=== PATIENT | male | born 1955 | race Caucasian/White ===

== ENCOUNTER → 2016-11-16 | Outpatient (CLI) | payer OTHER ==
[2016-11-16 14:06] LABS: Partial Thromboplastin Time 23.4 sec (22.0-30.0); Prothrombin Time 10.3 sec (9.0-12.0)
[2016-11-16 14:24] LABS: ALT 21 U/L (21-72); AST 20 U/L (17-59); Alkaline Phosphatase 72 U/L (38-126); Anion Gap 10 mmol/L; Blood Urea Nitrogen 10 mg/dL (9-20); Calcium 9.7 mg/dL (8.4-10.2); Carbon Dioxide 30 mmol/L (22-30); Chloride 101 mmol/L (98-107); Glucose 208 mg/dL (74-99); Non-African American GFR(MDRD) >60 (>60 ml/min/1.73 sqM); Potassium 4.6 mmol/L (3.5-5.1); Sodium 141 mmol/L (137-145); Total Bilirubin 0.6 mg/dL (0.2-1.3); Total Protein 7.7 g/dL (6.3-8.2)
[2016-11-16 14:43] LABS: Appearance,Urine Clear (Clear); Basophils % (A) 0 %; Bilirubin,Urine Negative (Negative); CHCM 33.7; Eosinophils # (A) 0.4 k/uL (0-0.7); Eosinophils % (A) 5 %; Glucose,Urine (UA) 4+ (Negative); HCT 44.4 % (39.0-53.0); HDW 2.51; HGB 14.9 gm/dL (13.0-17.5); Ketones,Urine Negative (Negative); Leukocyte Esterase,Urine Negative (Negative); Luc # (Auto) 0.13; Luc % (Auto) 2; Lymphocytes # (A) 2.4 k/uL (1.0-4.8); Lymphocytes % (A) 34 %; MCH 33.1 pg (25.0-35.0); MCHC 33.6 g/dL (31.0-37.0); MCV 98.4 fL (80.0-100.0); Mean Platelet Volume 7.8; Monocytes # (A) 0.4 k/uL (0-1.0); Monocytes % (A) 6 %; Neutrophils # (A) 3.8 k/uL (1.3-7.7); Neutrophils % (A) 53 %; Nitrite,Urine Negative (Negative); PH, Urine 7.5 (5.0-8.0); Protein,Urine Negative (Negative); RBC 4.51 m/uL (4.30-5.90); RDW 14.9 % (11.5-15.5); Specific Gravity,Urine 1.022 (1.001-1.035); UA Billing (MACRO vs. MICRO) CHEM; Urobilinogen,Urine <2.0 mg/dL (<2.0); WBC 7.2 k/uL (3.8-10.6); WBC (Perox) 7.69
== END ==
LOC: LABPAT 13:30
PROVIDERS: ATTEND Orthopaedic Surgery
DX: Z01.810 Encounter for preprocedural cardiovascular examination (principal); Z01.812 Encounter for preprocedural laboratory examination
CPT/HCPCS: 80053; 81003; 85025; 85610; 85730; 87070

== ENCOUNTER 2016-11-30 13:56 | Inpatient (IN) | payer OTHER ==
[2016-11-26 12:01] VITALS: BMI 26.5
[~2016-11-30 13:56] MED LIST: LIDOCAINE 1% 20 ML VIAL (10MG/ML) FOR IV START INTRADERMA PRN; ROPIVACAINE 246.25 MG, EPINEPHrine 0.5 MG, KETOROLAC 30 MG, cloNIDine HCL/PF 80 MCG, WA... MISCELLANE ONE; SCOPOLAMINE 1.5MG/72HR PATCH TRANSDERM ONE; TRANEXAMIC ACID 1,000 MG in SODIUM CHLORIDE 0.9% 100 ML IVPB ONE; ceFAZolin 2 GM in SODIUM CHLORIDE 0.9% 100 ML IVPB ONE
[2016-11-30] MEDS: ACETAMINOPHEN TAB 500 MG TAB PO ONE ×2 (14:00→14:39)
[2016-11-30] MEDS: MELOXICAM 7.5 MG TAB PO ONE ×2 (14:01→14:39)
[2016-11-30] MEDS: DEXAMETHASONE SOD PHOSPHATE 10 MG/ML 1 ML VIAL IV ONE ×2 (14:01→14:40)
[2016-11-30] MEDS: ONDANSETRON 4 MG/2 ML VIAL IVP ONE ×2 (14:02→14:40)
[2016-11-30] MEDS: LACTATED RINGERS 1,000 ML IV SCH (14:02)
[2016-11-30 14:34] LABS: Glucose,Whole Blood 149 mg/dL (75-99)
[2016-11-30] MEDS ORDERED: LACTATED RINGERS 1,000 ML IV ONE ×2 (14:43→18:06)
[2016-11-30] MEDS ORDERED: MIDAZOLAM 2 MG/2 ML VIAL IV ONE (15:21)
[2016-11-30] MEDS ORDERED: HEPARIN SODIUM,PORCINE 10,000 UNIT/ML 1 ML VIAL ONE (16:51)
[2016-11-30] MEDS ORDERED: MIDAZOLAM 2 MG/2 ML VIAL ONE (16:51)
[2016-11-30] MEDS ORDERED: SODIUM CHLORIDE 0.9% 100 ML BAG ONE (16:51)
[2016-11-30] MEDS ORDERED: GLYCOPYRROLATE 0.2 MG/ML 2 ML VIAL ONE (16:51)
[2016-11-30] MEDS ORDERED: SODIUM CHLORIDE 0.9% IRRIG 1,000 ML BTL IRRIGATION ONE (16:51)
[2016-11-30] MEDS ORDERED: SUCCINYLCHOLINE CHLORIDE VIAL 200 MG/10 ML VIAL IV ONE (16:51)
[2016-11-30] MEDS ORDERED: HYDROmorphone (PF) 1 MG/ML ONE (16:51)
[2016-11-30] MEDS ORDERED: PHENYLEPHRINE-0.9% NACL SYG 1 MG/10 ML SYRINGE ONE (16:51)
[2016-11-30] MEDS ORDERED: ROCURONIUM BROMIDE 10 MG/ML 10 ML VIAL IV ONE (16:51)
[2016-11-30] MEDS ORDERED: SODIUM CHLORIDE 0.9% 100 ML with ceFAZolin 2,000 MG IV ONE ×2 (16:51)
[2016-11-30] MEDS ORDERED: TRANEXAMIC ACID 1,000 MG/10 ML VIAL ONE (16:51)
[2016-11-30] MEDS ORDERED: fentaNYL (PF) 50 MCG/ML 2 ML AMP ONE (16:51)
[2016-11-30] MEDS ORDERED: PROPOFOL 10 MG/ML 20 ML VIAL IV ONE (16:51)
[2016-11-30] MEDS ORDERED: NEOSTIGMINE 1 MG/ML 10 ML VIAL ONE (16:51)
[2016-11-30] MEDS ORDERED: ceFAZolin 3,000 MG in SODIUM CHLORIDE 0.9% IRRIGATIO 3,000 ML IRRIGATION ONE (17:30)
--- NOTE | 2016-11-30 18:38 | P.OP ---
Date of Procedure: 11/30/16 Preoperative Diagnosis: Severe osteoarthritis left hip Postoperative Diagnosis: Severe osteoarthritis left hip Procedure(s) Performed: Left total hip arthroplasty with a direct anterior approach Implants: Jameson and nephew Polarstem size 6 standard [employer]on [employer]hew R3, 3 hole acetabular shell, 56 mm [employer]hew reflection 6.5 mm cancellus screw, 25 mm 2 [employer]hew R3, XLPE 20 acetabular liner [employer]on [employer] Nephew Oxinium femoral head 36 m, +4 All components were press-fit. The articulation is ceramic on polyethylene. Anesthesia: spinal Surgeon: Suleman Castillo Referral Agent #1: Ana Menchaca Referral Agent #2: Cecy Brewer Estimated Blood Loss (ml): 450 (197 cc returned with cell saver) Pathology: other (Femoral head) Condition: stable Disposition: PACU Indications for Procedure: After failure of conservative treatment we discussed the surgical and nonsurgical treatment options at length. Patient wishes to proceed with a total hip arthroplasty with a direct anterior approach. Complications specific to this procedure were discussed at length, including but not limited to infection, leg length discrepancy, dislocation, and nerve injury. Patient is aware of all these complications and informed consent was obtained Operative Findings: The operative findings are consistent with severe osteoarthritis of the left hip Description of Procedure: Patient was seen and evaluated in the preoperative area, consent was reviewed, and the surgical site was marked with a skin marker. Patient was then brought to the operating room and given prophylactic antibiotics intravenously. 1 g of Tranexamic acid was also given. A spinal anesthetic was administered by the anesthesia department. The patient was then placed on the [place] table with the bony prominences well-padded. The hip area was then prepped and draped in usual sterile fashion. A universal timeout was then performed, which confirmed the patient's name, surgical site, ALLERGIES, and procedure being performed. Next the incision site was located at 1 cm distal and 1 cm lateral to the anterior superior iliac spine. The skin and subcutaneous tissues were sharply incised. Incision was carefully dissected down to the fascia overlying the tensor fascia marcelina muscle. This fascia was then incised in line with the incision. Next, using blunt finger dissection, the tensor fascia marcelina muscle was dissected off its investing fascia. The muscle was then carefully retracted laterally with a cobra retractor over the lateral neck of the femur. Next, the circumflex vessels were identified and cauterized using the AquaMantis device. The anterior hip capsule was then exposed. The capsule was then opened and an inverted T fashion. Retention sutures were placed in the inferior arms of the capsule. Cobra retractors were then placed intracapsularly. The proximal femur was then visualized. The femoral neck was then osteotomized appropriate level above the lesser trochanter. Small amount of traction was placed with the [place] table. A small wedge of bone was then removed from the remaining femoral head. Next, using a corkscrew femoral head was easily removed from the acetabulum. On gross visual inspection, the femoral head had complete loss of articular cartilage in multiple periarticular osteophytes. Attention was then turned to the acetabulum. the acetabulum was exposed and any remaining labrum was excised. Sequential reaming of the acetabulum was performed using fluoroscopic guidance. When the appropriate size was reached, a trial was then placed. The position and fit of the trial was checked with fluoroscopy. The trial was then removed. Then, using fluoroscopic guidance, the final implant was impacted at 20 of anteversion and 40 of abduction, and fully seated in the acetabulum. 2 screws were then placed in the acetabulum. Again fluoroscopy was used to check position of the screws. Next, the liner was then impacted, with a 20 elevated liner located in the anterior superior quadrant. Component locking was confirmed. Attention was then directed to the femur. With the aid of the [place] table, the femur was externally rotated to approximately 130, extended, and abducted under the opposite leg. A side hook was then placed under the proximal femur, and the side hook elevator was used to elevate the proximal femur. Retractors were then placed. A capsular release was performed, as well as a release of the conjoined tendon, which afforded excellent visualization of the proximal femur. Next, a box osteotome was used to lateralize the proximal femur. A coal handling supervisor was then used to locate the femoral canal. Sequential broaching was then performed with appropriate size which afforded excellent fixation in the proximal femur. A trial was then placed with appropriate head and neck, and the hip was gently reduced with the aid of the [place] table. Fluoroscopy was then used to check position of the components, as well as to ensure equal leg lengths. The hip was then gently dislocated and the trials were then removed. Final implants were then impacted and the hip was again reduced. Final fluoroscopic x-rays confirmed that the components were in anatomic position, as well as equal leg lengths. The hip was also taken through range of motion, and found to be stable. The hip was then copiously irrigated with antibiotic solution with pulsatile lavage. The hip was then irrigated with Irrisept solution. The soft tissues were then injected with a ropivacaine solution, which consisted of 246.25 mg of ropivacaine, 0.5 mg of epinephrine, 30 mg of Toradol, 80 g of clonidine, and 48.45 mL of sterile water, for a total of 100 mL of fluid injected. A second dose of 1 g of Tranexamic acid was also given. the fascia was then closed with 2-0 strata fix suture. The subcutaneous tissue was closed with 3-0 Vicryl. The subcuticular tissue was closed with 3-0 strata fix suture. The skin was then closed with Dermabond tape. The patient was then transferred to the recovery room in stable condition. The economic research assistant NICOLETTE Vallejo was required due to the complexity of surgery , and the need for skilled assistant professor surgical technology for positioning, draping, exposure , retraction, and closure of the wound.
[2016-11-30] MEDS ORDERED: ONDANSETRON 4 MG/2 ML VIAL IVP PRN (19:03)
[2016-11-30] MEDS ORDERED: HYDROcodone/APAP 7.5-325MG 1 EACH TAB PO PRN (19:03)
[2016-11-30] MEDS ORDERED: HYDROmorphone 1 MG/ML 1 ML SYRINGE IVP PRN ×3 (19:03)
[2016-11-30] MEDS ORDERED: DIAZEPAM 5 MG TAB PO PRN ×2 (19:03)
[2016-11-30] MEDS ORDERED: NALOXONE 0.4 MG/ML 1 ML VIAL IV PRN (19:03)
[2016-11-30] MEDS ORDERED: MAGNESIUM HYDROXIDE 2,400 MG/10 ML CUP PO PRN (19:03)
[2016-11-30] MEDS: HYDROmorphone 1 MG/ML 1 ML SYRINGE IVP PRN ×5 (19:10→19:41)
[2016-11-30 19:29] LABS: Glucose,Whole Blood 253 mg/dL (75-99)
[2016-11-30] MEDS ORDERED: HYDROmorphone PCA 5 MG/25 ML SYRINGE IV PRN (19:30)
--- NOTE | 2016-11-30 19:32 | XR ---
EXAMINATION TYPE: XR Hip Limited LT DATE OF EXAM: 11/30/2016 7:26 PM COMPARISON: 07/05/2016 HISTORY: Postop TECHNIQUE: Single view FINDINGS: There is a left hip prosthesis. Components appear in anatomic position. IMPRESSION: No complicating process seen.
[2016-11-30 19:35] VITALS: RESP 16
[2016-11-30] MEDS ORDERED: INSULIN LISPRO (humaLOG) 300 UNIT/3 ML VIAL SQ ONE (19:43)
[2016-11-30] MEDS: SODIUM CHLORIDE 0.9% 1,000 ML IV SCH (21:22)
[2016-11-30] MEDS: ASPIRIN 325 MG TAB PO SCH (21:26)
[2016-11-30] MEDS: SENNOSIDES-DOCUSATE SODIUM 1 EACH TAB PO SCH (21:26)
[2016-11-30 21:38] LABS: Glucose,Whole Blood 292 mg/dL (75-99)
[2016-12-01] MEDS: ceFAZolin 2 GM in SODIUM CHLORIDE 0.9% 100 ML IVPB SCH ×2 (00:35→07:52)
[2016-12-01] MEDS: LACTATED RINGERS 1,000 ML IV SCH (01:23)
[2016-12-01] MEDS: BUDESONIDE 0.5 MG/2 ML NEBU INHALATION SCH ×2 (07:24→19:19)
[2016-12-01] MEDS: ALBUTEROL NEBULIZED 2.5 MG/3 ML INHALATION PRN (07:24)
[2016-12-01 07:35] LABS: Glucose,Whole Blood 266 mg/dL (75-99)
[2016-12-01] MEDS: INSULIN LISPRO (humaLOG) 300 UNIT/3 ML VIAL SQ SCH ×3 (07:51→17:35)
[2016-12-01] MEDS: MELOXICAM 7.5 MG TAB PO SCH (07:52)
[2016-12-01] MEDS: ASPIRIN 325 MG TAB PO SCH ×2 (07:52→22:35)
[2016-12-01] MEDS: metFORMIN 500 MG TAB PO SCH ×2 (07:52→17:36)
[2016-12-01] MEDS: hydrOXYzine PAMOATE 25 MG CAP PO PRN ×2 (07:58→16:19)
[2016-12-01 08:20] LABS: Basophils % (A) 0 %; CH 33.9; CHCM 34.6; Eosinophils % (A) 0 %; HDW 2.67; HGB 12.9 gm/dL (13.0-17.5); Luc # (Auto) 0.08; Luc % (Auto) 0; Lymphocytes # (A) 1.7 k/uL (1.0-4.8); Lymphocytes % (A) 9 %; MCH 32.5 pg (25.0-35.0); MCHC 33.1 g/dL (31.0-37.0); MCV 98.3 fL (80.0-100.0); Mean Platelet Volume 7.8; Monocytes % (A) 5 %; Neutrophils % (A) 86 %; RBC 3.97 m/uL (4.30-5.90); RDW 14.2 % (11.5-15.5); WBC 19.8 k/uL (3.8-10.6); WBC (Perox) 20.98
[2016-12-01 09:50] LABS: Glucose,Whole Blood 244 mg/dL (75-99)
[2016-12-01] MEDS: SODIUM CHLORIDE 0.9% 1,000 ML IV SCH (09:57)
--- NOTE | 2016-12-01 10:27 | FL ---
Fluoroscopy HISTORY: Hardware placement 48 seconds fluoroscopy time supplied to the referring clinician. 2 intraoperative C-arm images docum ent the procedure. See dictated report from orthopedic surgery.
--- NOTE | 2016-12-01 10:29 | XR ---
Limited left hip HISTORY: Hip replacement 3 Intraoperative C-arm images document the procedure
--- NOTE | 2016-12-01 11:39 | P.CONS ---
History of Present Illness - Reason for Consult Consult date: 12/01/16 Medical management - Chief Complaint Left posterior arthritis - History of Present Illness This is a 61-year-old gentleman with past medical history noted below significant for severe left hip osteoarthritis that failed outpatient management. Patient was admitted to the hospital and underwent an elective total left hip arthroplasty. Patient tolerated the procedure well. He is up in the chair today. Pain is well controlled. He does not have any specific concerns or complaints. I was asked to see him for medical management. Review of Systems Review of system: 14 points review of systems were obtained and were negative except to what were mentioned in the HPI. Past Medical History Past Medical History: Asthma, Diabetes Mellitus, Hyperlipidemia, Hypertension Additional Past Medical History / Comment(s): [place], chronic hip pain, PT STATES SURGERY RESCHEDULED DUE TO DR OUT OF TOWN AND CLEARANCE WAS NOT COMPLETED. History of Any Multi-Drug Resistant Organisms: None Reported Past Surgical History: No Surgical Hx Reported Additional Past Anesthesia/Blood Transfusion Reaction / Comm: NEVER RECEIVED ANESTHESIA. Past Psychological History: No Psychological Hx Reported Smoking Status: Former smoker Past Alcohol Use History: None Reported Additional Past Alcohol Use History / Comment(s): QUIT SMOKING 2005. SMOKED 1 PPD FOR A COUPLE YEARS. Past Drug Use History: Marijuana Additional Drug Use History / Comment(s): DIGESTS MARIJUANA IN A TEA FOR PAIN. - Past Family History Mother Family Medical History: No Reported History Medications and Allergies Home Medications Medication Instructions Recorded Confirmed Type Atorvastatin Calcium [Lipitor] 20 mg PO HS 02/03/14 11/26/16 History Beclomethasone Dipropionate [Qvar 1 puff INHALATION RT-BID 02/03/14 11/30/16 History 40 mcg/puff] Insulin Aspart [NovoLOG] 15 unit SQ TID-W/MEALS 02/03/14 11/26/16 History Insulin Detemir [Levemir] 30 unit SQ HS 02/03/14 11/30/16 History metFORMIN HCL [Glucophage] 500 mg PO BID 02/03/14 11/26/16 History Lisinopril [Prinivil] 20 mg PO DAILY 08/05/14 11/26/16 History Montelukast [Singulair] 10 mg PO HS 08/05/14 11/26/16 History Albuterol Sulfate [Proair Hfa] 2 puff INHALATION DIRECTED PRN 08/18/16 History Omalizumab [Xolair] 150 mg SQ QMONTH 08/18/16 11/30/16 History Allergies Allergy/AdvReac Type Severity Reaction Status Date / Time No Known Allergies Allergy Verified 11/30/16 14:18 Physical Exam Vitals: Vital Signs Temp Pulse Pulse Pulse Pulse Resp BP 12/01/16 08:02 97.9 F 101 H 16 12/01/16 08:00 74 101 H 16 12/01/16 07:59 101 H 12/01/16 07:25 106 H 12/01/16 02:36 97.1 F L 107 H 16 11/30/16 21:09 11/30/16 19:48 74 16 11/30/16 19:33 90 16 11/30/16 19:18 96 18 11/30/16 19:03 97.4 F L 79 18 11/30/16 14:30 97.6 F 79 16 144/96 BP Pulse Ox 12/01/16 08:02 150/73 96 12/01/16 08:00 12/01/16 07:59 12/01/16 07:25 12/01/16 02:36 196/86 96 11/30/16 21:09 98 11/30/16 19:48 163/79 96 11/30/16 19:33 152/78 97 11/30/16 19:18 167/79 99 11/30/16 19:03 155/93 93 L 11/30/16 14:30 98 Intake and Output 11/30/16 12/01/16 12/01/16 22:59 06:59 14:59 Intake Total 1876 1690 200 Output Total 450 900 600 Balance 1426 790 -400 Intake: IV 1876 600 Sodium Chloride 0.9% 1, 225 600 000 ml @ 75 mls/hr IV . [id number] [facility] Rx#:[id number] Oral 1090 200 Output: Urine 900 600 Estimated Blood Loss 450 Other: Voiding Method Urinal # Voids 2 Weight 83.915 kg General: The patient is awake and alert, in no distress, and does not appear acutely ill. Eye: extra-ocular movements are intact; there is normal conjunctiva bilaterally. . Neck: The neck is supple, there is no tenderness or JVD. Cardiovascular: Normal S1-S2, no S3-S4, no murmurs. Respiratory: Lungs clear to auscultation bilaterally with no wheezes rhonchi or rales. Gastrointestinal: Abdomen is soft, nontender, nondistended, with no organomegaly. . Musculoskeletal: Normal ROM, no tenderness, There is no pedal edema. Neurological: There are no obvious motor or sensory deficits. Speech is normal. Skin: Skin is warm and dry and no rashes or lesions are noted. Results CBC & Chem 7: 12/01/16 07:42 11/30/16 14:35 Labs: Abnormal Lab Results - Last 24 Hours (Table) 11/30/16 11/30/16 11/30/16 Range/Units 14:27 14:35 19:20 WBC (3.8-10.6) k/uL RBC (4.30-5.90) m/uL Hgb (13.0-17.5) gm/dL Neutrophils # (1.3-7.7) k/uL Glucose 152 H (74-99) mg/dL POC Glucose (mg/dL) 149 H 253 H (75-99) mg/dL 11/30/16 12/01/16 12/01/16 Range/Units 21:36 07:22 07:42 WBC 19.8 H (3.8-10.6) k/uL RBC 3.97 L (4.30-5.90) m/uL Hgb 12.9 L (13.0-17.5) gm/dL Neutrophils # 17.0 H (1.3-7.7) k/uL Glucose (74-99) mg/dL POC Glucose (mg/dL) 292 H 266 H (75-99) mg/dL 12/01/16 Range/Units 09:35 WBC (3.8-10.6) k/uL RBC (4.30-5.90) m/uL Hgb (13.0-17.5) gm/dL Neutrophils # (1.3-7.7) k/uL Glucose (74-99) mg/dL POC Glucose (mg/dL) 244 H (75-99) mg/dL Assessment and Plan Plan: 1. Severe osteoarthritis of the left hip postoperative day #1 status post total left hip arthroplasty 2. DVT prophylaxis with full dose aspirin twice daily per orthopedic protocol 3. Physical debility: Continue PT/OT as tolerated 4. Type 2 diabetes mellitus: Continue home regimen Today, I reviewed her medication list and lab work results. Continue current regimen. Thank you very much for the consultation. I will continue to follow up on the patient closely.
[2016-12-01 11:57] LABS: Glucose,Whole Blood 198 mg/dL (75-99)
--- NOTE | 2016-12-01 15:39 | P.PN ---
Subjective Principal diagnosis: S/p left total hip arthroplasty This is a 61yo male who is s/p total hip arthroplasty. This is post op day #1. Patient was examined at bedside with Dr. Suleman Castillo. Patient has not been up with PT yet. Patient has no new complaints. Objective - Vital Signs Vital signs: Vital Signs Temp 98.0 F 12/01/16 14:49 Pulse 97 12/01/16 14:49 Resp 16 12/01/16 14:49 BP 109/73 12/01/16 14:49 Pulse Ox 99 12/01/16 14:49 Intake & Output 11/30/16 12/01/16 12/01/16 18:59 06:59 18:59 Intake Total 1601 2165 500 Output Total 450 900 600 Balance 1151 1265 -100 Weight 83.915 kg Intake: IV 1601 1075 300 Sodium Chloride 0.9% 1, 825 300 000 ml @ 75 mls/hr IV . [id number] [facility] Rx#:[id number] Oral 1090 200 Output: Urine 900 600 Estimated Blood Loss 450 Other: Voiding Method Urinal # Voids 2 - Exam Vital signs are stable. Patient has full foot and ankle motion. Neurovascular status is intact. Calf is soft and nontender. Dressing is clean dry and intact. - Labs CBC & Chem 7: 12/01/16 07:42 11/30/16 14:35 Labs: Abnormal Lab Results - Last 24 Hours (Table) 11/30/16 11/30/16 12/01/16 Range/Units 19:20 21:36 07:22 WBC (3.8-10.6) k/uL RBC (4.30-5.90) m/uL Hgb (13.0-17.5) gm/dL Neutrophils # (1.3-7.7) k/uL POC Glucose (mg/dL) 253 H 292 H 266 H (75-99) mg/dL 12/01/16 12/01/16 12/01/16 Range/Units 07:42 09:35 11:51 WBC 19.8 H (3.8-10.6) k/uL RBC 3.97 L (4.30-5.90) m/uL Hgb 12.9 L (13.0-17.5) gm/dL Neutrophils # 17.0 H (1.3-7.7) k/uL POC Glucose (mg/dL) 244 H 198 H (75-99) mg/dL Assessment and Plan (1) S/P total hip arthroplasty Status: Acute (2) Osteoarthritis of left hip Status: Acute Plan: Weightbearing as tolerated with walker. Leukocytosis noted, could be reacting. Followed. Possible discharge to rehab tomorrow if medically cleared.
[2016-12-01] MEDS: HYDROcodone/APAP 7.5-325MG 1 EACH TAB PO PRN (16:19)
[2016-12-01 16:50] LABS: Glucose,Whole Blood 128 mg/dL (75-99)
[2016-12-01 20:06] LABS: Glucose,Whole Blood 200 mg/dL (75-99)
[2016-12-01] MEDS ORDERED: INSULIN DETEMIR 100 UNIT/ML 10 ML VIAL SQ SCH (21:00)
[2016-12-01] MEDS ORDERED: ATORVASTATIN 20 MG TAB PO SCH (21:00)
[2016-12-01] MEDS: SENNOSIDES-DOCUSATE SODIUM 1 EACH TAB PO SCH (22:35)
[2016-12-02] MEDS: HYDROcodone/APAP 7.5-325MG 1 EACH TAB PO PRN ×2 (01:13→08:34)
[2016-12-02] MEDS: SODIUM CHLORIDE 0.9% 1,000 ML IV SCH ×2 (03:49→11:10)
[2016-12-02 07:06] LABS: Glucose,Whole Blood 125 mg/dL (75-99)
[2016-12-02] MEDS: LACTATED RINGERS 1,000 ML IV SCH (07:49)
[2016-12-02] MEDS: INSULIN LISPRO (humaLOG) 300 UNIT/3 ML VIAL SQ SCH ×2 (07:52→12:08)
[2016-12-02 08:00] VITALS: BP 135/79; TEMP 98.7
[2016-12-02] MEDS: ALBUTEROL NEBULIZED 2.5 MG/3 ML INHALATION PRN (08:16)
[2016-12-02] MEDS: BUDESONIDE 0.5 MG/2 ML NEBU INHALATION SCH (08:16)
[2016-12-02] MEDS: MELOXICAM 7.5 MG TAB PO SCH (08:34)
[2016-12-02] MEDS: metFORMIN 500 MG TAB PO SCH (08:34)
[2016-12-02] MEDS: ASPIRIN 325 MG TAB PO SCH (08:34)
--- NOTE | 2016-12-02 08:34 | P.DS ---
Providers Date of admission: 11/30/16 13:56 Expected date of discharge: 12/02/16 Attending physician: Suleman Castillo Consults: 11/30/16 19:03 Consult Physician Stat Consulting Provider: Felipe Phillips Consult Reason/Comments: medical management Do you want consulting provider notified?: Yes 12/01/16 06:03 Consult Physician Routine Consulting Provider: Catherine Barry Consult Reason/Comments: medical management Do you want consulting provider notified?: Already Contacted Primary care physician: Stated None - Discharge Diagnosis(es) (1) Primary osteoarthritis of left hip Current Visit: Yes Status: Acute (2) Status post left hip replacement Current Visit: Yes Status: Acute Hospital Course: This is a pleasant 61-year-old gentleman who was last seen in our office with complaints of left hip pain. Patient has known history of degenerative arthritis of the left hip. After discussion consideration the patient elected to proceed with a left total hip arthroplasty. Patient was seen preoperatively medically cleared for surgery by his primary care physician. Patient was [facility] to [facility] 11/30/2016. Patient underwent left total hip arthroplasty with anterior approach. The procedure was performed without competitions or sequelae. The patient did have leukocytosis postoperatively which is likely reactive. Repeat CBC is pending. The patient was seen and evaluated at bedside this morning with Dr. Suleman Castillo. Patient denies any fevers or chills. He states that he's been up ambulating with a walker. He wishes to be discharged home today. He has no new complaints this time. Dressing is clean dry and intact. Incision appears fine with no erythema or active drainage. Thigh is soft. Calf is soft. He has good foot and ankle motion without difficulty. Sensation and circulatory status is intact. The patient does not wish to consider rehab. He would like to be discharged to home today with home care. If he is doing well physical therapy he may be cleared for discharge possibly later this afternoon. Patient Condition at Discharge: Good Plan - Discharge Summary New Discharge Prescriptions: Aspirin 325 mg PO BID #60 tab HYDROcodone/APAP 7.5-325MG [[place] 7.5] 1 - 2 each PO Q6HR PRN #90 tab PRN Reason: Pain Sennosides-Docusate Sodium [Senokot-S] 2 tab PO DAILY #60 tablet Discharge Medication List Atorvastatin Calcium [Lipitor] 20 mg PO HS 02/03/14 [History] Beclomethasone Dipropionate [Qvar 40 mcg/puff] 1 puff INHALATION RT-BID [History] Insulin Aspart [NovoLOG] 15 unit SQ TID-W/MEALS 02/03/14 [History] Insulin Detemir [Levemir] 30 unit SQ HS 02/03/14 [History] metFORMIN HCL [Glucophage] 500 mg PO BID 02/03/14 [History] Lisinopril [Prinivil] 20 mg PO DAILY 08/05/14 [History] Montelukast [Singulair] 10 mg PO HS 08/05/14 [History] Albuterol Sulfate [Proair Hfa] 2 puff INHALATION DIRECTED PRN 08/18/16 [ History] Omalizumab [Xolair] 150 mg SQ QMONTH 08/18/16 [History] Aspirin 325 mg PO BID #60 tab 12/02/16 [Rx] HYDROcodone/APAP 7.5-325MG [Sallis 7.5] 1 - 2 each PO Q6HR PRN #90 tab 12/02/16 [ Rx] Sennosides-Docusate Sodium [Senokot-S] 2 tab PO DAILY #60 tablet 12/02/16 [Rx] Follow up Appointment(s)/Referral(s): Suleman Castillo DO [Doctor of Osteopathic Medicine] - 2 Weeks Activity/Diet/Wound Care/Special Instructions: Weightbearing as tolerated with walker Daily dressing changes Keep incision clean and dry Call [facility] with questions or concerns [phone] Discharge Disposition: HOME WITH HOME HEALTH SERVICES
[2016-12-02] MEDS ORDERED: LISINOPRIL 20 MG TAB PO SCH (09:00)
[2016-12-02 09:22] VITALS: PULSE 98
[2016-12-02 09:47] LABS: Basophils % (A) 0 %; CH 33.6; CHCM 33.3; Eosinophils % (A) 0 %; HCT 35.1 % (39.0-53.0); HDW 2.48; HGB 11.5 gm/dL (13.0-17.5); Luc # (Auto) 0.17; Luc % (Auto) 1; Lymphocytes # (A) 2.7 k/uL (1.0-4.8); Lymphocytes % (A) 19 %; MCH 33.1 pg (25.0-35.0); MCHC 32.7 g/dL (31.0-37.0); MCV 101.4 fL (80.0-100.0); Macrocytosis Slight; Mean Platelet Volume 7.9; Monocytes # (A) 0.8 k/uL (0-1.0); Monocytes % (A) 5 %; Neutrophils # (A) 10.5 k/uL (1.3-7.7); Neutrophils % (A) 74 %; RBC 3.47 m/uL (4.30-5.90); RDW 14.7 % (11.5-15.5); WBC 14.3 k/uL (3.8-10.6); WBC (Perox) 14.33
[2016-12-02 11:13] LABS: Glucose,Whole Blood 315 mg/dL (75-99)
[2016-12-02] MEDS ORDERED: MONTELUKAST 10 MG TAB PO SCH (21:00)
== END 2016-12-02 13:23 | disposition home or self-care (01) | DRG 470 ==
LOC: 2ORMAIN 13:56 → 3SUR 18:58
PROVIDERS: ADMIT Orthopaedic Surgery; ATTEND Orthopaedic Surgery
PROC: 0SRB04A Replacement of Left Hip Joint with Ceramic on Polyethylene Synthetic Substitute, Uncemented, Open Approach (ICD-10-PCS; principal; 2016-11-30 16:30)
DX: M16.12 Unilateral primary osteoarthritis, left hip (principal); I10 Essential (primary) hypertension; E11.9 Type 2 diabetes mellitus without complications; D72.829 Elevated white blood cell count, unspecified; E78.5 Hyperlipidemia, unspecified; J45.909 Unspecified asthma, uncomplicated; Z79.4 Long term (current) use of insulin; Z79.899 Other long term (current) drug therapy; Z87.891 Personal history of nicotine dependence; Z79.84 Long term (current) use of oral hypoglycemic drugs
CPT/HCPCS: 73501; 73502; 82947; 85025; 86850; 86891; 86900; 86901; 88305; 88311; 94640; 94760

== ENCOUNTER 2017-11-21 13:14 | Emergency (ER) | payer OTHER ==
[2017-11-21 13:31] VITALS: TEMP 97.6
[2017-11-21] MEDS ORDERED: SODIUM CHLORIDE 0.9% 1,000 ML IV STA (13:49)
--- NOTE | 2017-11-21 13:55 | ED ---
General Adult HPI - General Chief complaint: Nausea/Vomiting/Diarrhea Stated complaint: rash, vomiting Time Seen by Provider: 11/21/17 13:41 Source: patient, RN notes reviewed Mode of arrival: wheelchair Limitations: no limitations - History of Present Illness Initial comments: Patient 62-year-old male who presents emergency room today with a chief complaint of a rash and diarrhea. Patient states that he's had this rash over the last several months. States was told it was psoriasis. States his pain using a topical cream with very little relief. He states he has been following up with a medical office coordinator. He states he was told to have some lab work performed so he could be started on oral medication. Patient states that he's also had some diarrhea for the past 4 days. He does not that there has been some improvement. She is having more 2 bowel movements a day. No signs of blood. Does admit to some cramping in the abdomen but states it comes and goes. Currently pain free at this time. Patient states is unsure of the diarrhea was related to the rash was concerned bodies comfortably emergency room today. He denies any other complaints associated symptoms. Patient denies any recent fever , chills, shortness of breath, chest pain, back pain, nausea or vomiting, numbness or tingling, dysuria or hematuria, constipation, headaches or visual changes, or any other complaints. - Related Data Home Medications Medication Instructions Recorded Confirmed Atorvastatin Calcium [Lipitor] 20 mg PO HS 02/03/14 11/26/16 Beclomethasone Dipropionate [Qvar 1 puff INHALATION RT-BID 02/03/14 11/30/16 40 mcg/puff] Insulin Aspart [NovoLOG] 15 unit SQ TID-W/MEALS 02/03/14 11/26/16 Insulin Detemir [Levemir] 30 unit SQ HS 02/03/14 11/30/16 metFORMIN HCL [Glucophage] 500 mg PO BID 02/03/14 11/26/16 Lisinopril [Prinivil] 20 mg PO DAILY 08/05/14 11/26/16 Montelukast [Singulair] 10 mg PO HS 08/05/14 11/26/16 Albuterol Sulfate [Proair Hfa] 2 puff INHALATION DIRECTED PRN 08/18/16 Omalizumab [Xolair] 150 mg SQ QMONTH 08/18/16 11/30/16 Previous Rx's Medication Instructions Recorded Aspirin 325 mg PO BID #60 tab 12/02/16 HYDROcodone/APAP 7.5-325MG [[place] 1 - 2 each PO Q6HR PRN #90 tab 12/02/16 7.5] Sennosides-Docusate Sodium 2 tab PO DAILY #60 tablet 12/02/16 [Senokot-S] hydrOXYzine PAMOATE [Vistaril] 2 tab PO QID PRN #30 cap 11/21/17 Allergies Allergy/AdvReac Type Severity Reaction Status Date / Time No Known Allergies Allergy Verified 11/21/17 13:31 Review of Systems ROS Statement: Those systems with pertinent positive or pertinent negative responses have been documented in the HPI. ROS Other: All systems not noted in ROS Statement are negative. Past Medical History Past Medical History: Asthma, Diabetes Mellitus, Hyperlipidemia, Hypertension Additional Past Medical History / Comment(s): [place], chronic hip pain, History of Any Multi-Drug Resistant Organisms: None Reported Past Surgical History: No Surgical Hx Reported Additional Past Anesthesia/Blood Transfusion Reaction / Comment(s): NEVER RECEIVED ANESTHESIA. Past Psychological History: No Psychological Hx Reported Smoking Status: Former smoker Past Alcohol Use History: None Reported Past Drug Use History: Marijuana - Past Family History Mother Family Medical History: No Reported History General Exam - General Exam Comments Initial Comments: General: The patient is awake and alert, in no distress, and does not appear acutely ill. Eye: Pupils are equal, round and reactive to light, extra-ocular movements are intact. No nystagmus. There is normal conjunctiva bilaterally. No signs of icterus. Ears, nose, mouth and throat: There are moist mucous membranes and no oral lesions. Neck: The neck is supple, there is no tenderness or JVD. Cardiovascular: There is a regular rate and rhythm. No murmur, rub or gallop is appreciated. Respiratory: Lungs are clear to auscultation, respirations are non-labored, breath sounds are equal. No wheezes, stridor, rales, or rhonchi. Gastrointestinal: Soft, non-distended, non-tender abdomen without masses or organomegaly noted. There is no rebound or guarding present. No CVA tenderness. Bowel sounds are unremarkable. Musculoskeletal: Normal ROM, no tenderness. Strength 5/5. Sensation intact. Pulses equal bilaterally 2+. Neurological: A&O x 3. CN II-XII intact, There are no obvious motor or sensory deficits. Coordination appears grossly intact. Speech is normal. Skin: Skin is warm and dry and no rashes or lesions are noted. Psychiatric: Cooperative, appropriate mood & affect, normal judgment. Limitations: no limitations Course Vital Signs 11/21/17 13:28 Temperature 97.6 F Pulse Rate 102 H Respiratory 18 Rate Blood Pressure 124/78 O2 Sat by Pulse 99 Oximetry Medical Decision Making - Medical Decision Making Patient's labs been reviewed. Mildly elevated white count of 12,000. Patient was on steroids. Patient's blood sugar 225. States that he will take his medication at home. Patient's abdomen soft nontender. She is concerned because he was having diarrhea along with this rash. He is seeing a medical office coordinator. He states he had to have these labs obtained to follow back up with them. He states he does plan on following up this week. Patient's will be given medication of Vistaril for the itching as he states is currently not taking anything for it. Patient advised to follow-up return if any symptoms increase or worsen. - Lab Data Result diagrams: 11/21/17 13:55 11/21/17 13:55 Lab Results 11/21/17 11/21/17 Range/Units 13:55 13:55 WBC 12.3 H (3.8-10.6) k/uL RBC 5.03 (4.30-5.90) m/uL Hgb 15.9 (13.0-17.5) gm/dL Hct 47.9 (39.0-53.0) % MCV 95.3 (80.0-100.0) fL MCH 31.7 (25.0-35.0) pg MCHC 33.2 (31.0-37.0) g/dL RDW 13.6 (11.5-15.5) % Plt Count 335 (150-450) k/uL Neutrophils % 71 % Lymphocytes % 20 % Monocytes % 5 % Eosinophils % 3 % Basophils % 0 % Neutrophils # 8.7 H (1.3-7.7) k/uL Lymphocytes # 2.5 (1.0-4.8) k/uL Monocytes # 0.6 (0-1.0) k/uL Eosinophils # 0.4 (0-0.7) k/uL Basophils # 0.0 (0-0.2) k/uL Sodium 141 (137-145) mmol/L Potassium 4.8 (3.5-5.1) mmol/L Chloride 101 (98-107) mmol/L Carbon Dioxide 28 (22-30) mmol/L Anion Gap 12 mmol/L BUN 12 (9-20) mg/dL Creatinine 0.64 L (0.66-1.25) mg/dL Est GFR (CKD-EPI)AfAm >90 (>60 ml/min/1.73 sqM) Est GFR (CKD-EPI)NonAf >90 (>60 ml/min/1.73 sqM) Glucose 225 H (74-99) mg/dL Calcium 10.0 (8.4-10.2) mg/dL Total Bilirubin 0.5 (0.2-1.3) mg/dL AST 20 (17-59) U/L ALT 30 (21-72) U/L Alkaline Phosphatase 72 (38-126) U/L Total Protein 7.6 (6.3-8.2) g/dL Albumin 4.5 (3.5-5.0) g/dL Disposition Clinical Impression: Acute diarrhea, Rash Disposition: HOME SELF-CARE Condition: Good Instructions: Acute Diarrhea (ED) Additional Instructions: Please use medication as discussed. Please follow-up with family doctor in the next 2 days of symptoms have not improved. Please return to emergency room if the symptoms increase or worsen or for any other concerns. Prescriptions: hydrOXYzine PAMOATE [Vistaril] 2 tab PO QID PRN #30 cap PRN Reason: Itching Referrals: Felipe Phillips MD [Primary Care Provider] - 1-2 days Time of Disposition: 14:58
[2017-11-21 14:12] LABS: Basophils % (A) 0 %; Eosinophils # (A) 0.4 k/uL (0-0.7); Eosinophils % (A) 3 %; HCT 47.9 % (39.0-53.0); HGB 15.9 gm/dL (13.0-17.5); Lymphocytes # (A) 2.5 k/uL (1.0-4.8); Lymphocytes % (A) 20 %; MCH 31.7 pg (25.0-35.0); MCHC 33.2 g/dL (31.0-37.0); MCV 95.3 fL (80.0-100.0); Monocytes # (A) 0.6 k/uL (0-1.0); Monocytes % (A) 5 %; Neutrophils # (A) 8.7 k/uL (1.3-7.7); Neutrophils % (A) 71 %; Platelet Count 335 k/uL (150-450); RBC 5.03 m/uL (4.30-5.90); RDW 13.6 % (11.5-15.5); WBC 12.3 k/uL (3.8-10.6)
[2017-11-21 14:21] LABS: ALT 30 U/L (21-72); AST 20 U/L (17-59); Albumin 4.5 g/dL (3.5-5.0); Alkaline Phosphatase 72 U/L (38-126); Anion Gap 12 mmol/L; Blood Urea Nitrogen 12 mg/dL (9-20); Carbon Dioxide 28 mmol/L (22-30); Chloride 101 mmol/L (98-107); Glucose 225 mg/dL (74-99); Potassium 4.8 mmol/L (3.5-5.1); Sodium 141 mmol/L (137-145); Total Bilirubin 0.5 mg/dL (0.2-1.3); Total Protein 7.6 g/dL (6.3-8.2)
[2017-11-21 15:06] LABS: Hepatitis A AB IgM Index 0.01; Hepatitis A Antibody IgM NEGATIVE
[2017-11-21 15:21] VITALS: BP 120/73; PULSE 90; RESP 16
[2017-11-22 11:59] LABS: Hepatitis B Core IgM Non-Reactive (Non-Reactive)
== END 2017-11-21 15:21 | disposition home or self-care (01) ==
LOC: EC 13:14
DX: R19.7 Diarrhea, unspecified (principal); R21 Rash and other nonspecific skin eruption; D72.829 Elevated white blood cell count, unspecified; J45.909 Unspecified asthma, uncomplicated; E11.9 Type 2 diabetes mellitus without complications; I10 Essential (primary) hypertension; E78.5 Hyperlipidemia, unspecified; Z87.891 Personal history of nicotine dependence; Z79.4 Long term (current) use of insulin; Z79.51 Long term (current) use of inhaled steroids; Z79.899 Other long term (current) drug therapy
CPT/HCPCS: 36415; 80053; 80074; 85025; 99284

== ENCOUNTER 2017-12-19 20:59 | Emergency (ER) | payer OTHER ==
[2017-12-19 21:26] VITALS: PULSE 77
[2017-12-19] MEDS ORDERED: DIPH,PERTUS(ACELL)TETVAC-LF 0.5 ML VIAL IM ONE (22:28)
--- NOTE | 2017-12-19 23:49 | ED ---
General Adult HPI - General Chief complaint: Wound/Laceration Stated complaint: R Leg Cut Time Seen by Provider: 12/19/17 22:28 Source: patient, RN notes reviewed Mode of arrival: ambulatory Limitations: no limitations - History of Present Illness Initial comments: 62-year-old male presents to the emergency department for chief complaint of laceration 2 hours ago. Patient is on blood thinners. Patient states he picked up a knife and dropped it and it hit his leg. Patient denies any other injuries. Patient denies falling or hitting his head. Patient denies any other complaints at this time. Patient denies sore throat, shortness of breath , chest pain, congestion, abdominal pain, nausea or vomiting, headaches, or visual field. - Related Data Home Medications Medication Instructions Recorded Confirmed Atorvastatin Calcium [Lipitor] 20 mg PO HS 02/03/14 11/26/16 Beclomethasone Dipropionate [Qvar 1 puff INHALATION RT-BID 02/03/14 11/30/16 40 mcg/puff] Insulin Aspart [NovoLOG] 15 unit SQ TID-W/MEALS 02/03/14 11/26/16 Insulin Detemir [Levemir] 30 unit SQ HS 02/03/14 11/30/16 metFORMIN HCL [Glucophage] 500 mg PO BID 02/03/14 11/26/16 Lisinopril [Prinivil] 20 mg PO DAILY 08/05/14 11/26/16 Montelukast [Singulair] 10 mg PO HS 08/05/14 11/26/16 Albuterol Sulfate [Proair Hfa] 2 puff INHALATION DIRECTED PRN 08/18/16 Omalizumab [Xolair] 150 mg SQ QMONTH 08/18/16 11/30/16 Previous Rx's Medication Instructions Recorded Aspirin 325 mg PO BID #60 tab 12/02/16 HYDROcodone/APAP 7.5-325MG [[place] 1 - 2 each PO Q6HR PRN #90 tab 12/02/16 7.5] Sennosides-Docusate Sodium 2 tab PO DAILY #60 tablet 12/02/16 [Senokot-S] hydrOXYzine PAMOATE [Vistaril] 2 tab PO QID PRN #30 cap 11/21/17 Allergies Allergy/AdvReac Type Severity Reaction Status Date / Time No Known Allergies Allergy Verified 12/19/17 21:25 Review of Systems ROS Statement: Those systems with pertinent positive or pertinent negative responses have been documented in the HPI. ROS Other: All systems not noted in ROS Statement are negative. Past Medical History Past Medical History: Asthma, Diabetes Mellitus, Hyperlipidemia, Hypertension Additional Past Medical History / Comment(s): [place], chronic hip pain, History of Any Multi-Drug Resistant Organisms: None Reported Past Surgical History: No Surgical Hx Reported Additional Past Anesthesia/Blood Transfusion Reaction / Comment(s): NEVER RECEIVED ANESTHESIA. Past Psychological History: No Psychological Hx Reported Smoking Status: Former smoker Past Alcohol Use History: None Reported Past Drug Use History: Marijuana - Past Family History Mother Family Medical History: No Reported History General Exam Limitations: no limitations General appearance: alert, in no apparent distress Respiratory exam: Present: normal lung sounds bilaterally. Absent: respiratory distress, wheezes, rales, rhonchi, stridor Cardiovascular Exam: Present: regular rate, normal rhythm, normal heart sounds. Absent: systolic murmur, diastolic murmur, rubs, gallop, clicks Extremities exam: Present: full ROM (Full range of motion of the right foot ankle and leg), tenderness (Tenderness along the laceration site), normal capillary refill (Cap refill less than 2 seconds and pedal pulse 2+), other ( There is a 4 cm laceration on the lateral mid lower right leg. No signs of infection noted.). Absent: pedal edema, joint swelling, calf tenderness (No tenderness in the calf) Course Vital Signs 12/19/17 12/20/17 21:23 00:01 Temperature 98.3 F 97.7 F Pulse Rate 77 77 Respiratory 16 18 Rate Blood Pressure 172/81 156/85 O2 Sat by Pulse 96 98 Oximetry Procedures - Procedures Initial comment: Body area: Lateral right lower leg Laceration length: 4 cm Foreign bodies: no foreign bodies Tendon involvement: none Nerve involvement: none Vascular damage: no Anesthesia: local infiltration Local anesthetic: 6 mL 1% lidocaine Preparation: Patient was prepped and draped in the usual sterile fashion. Irrigation solution: saline, cleaned with iodine Irrigation method: Saline jet lavage Skin closure: 5-0 Ethilon using sterile technique Number of sutures: 10 Technique: 9 interrupted in 1 horizontal mattress Dressing: antibiotic ointment/ gauze Patient tolerance: Patient tolerated the procedure well with no immediate complications. Medical Decision Making - Medical Decision Making 62-year-old male presents to the emergency department for a chief complaint of laceration on the lateral lower leg. Patient is on blood thinners. Patient dropped a knife which sliced his leg. On exam there is a 4 cm laceration to the lateral aspect of the lower left leg. Wound was cleaned. Wound continue to bleed and one area was cauterized with silver nitrate. Wound was then sutured without complications and covered with bacitracin and gauze. Patient was given a tetanus in the emergency department. He was educated to monitor for signs of infection. He was educated that it may not heal well as it is the lower leg and he needs to keep an eye on it. He will follow up with primary care in 1-2 days. He will return to the emergency department in 10 days to have sutures removed. He will return earlier if he notices any signs of infection or other symptoms or concerns. Disposition Clinical Impression: Laceration Disposition: HOME SELF-CARE Condition: Good Instructions: Care For Your Stitches (ED), Laceration (ED) Additional Instructions: Please return to the emergency department in 10 days to have 10 sutures removed. Return earlier if you notice any signs of infection. Follow-up with primary care in 1-2 days and monitor for healing. Is patient prescribed a controlled substance at d/c from ED?: No Referrals: Felipe Phillips MD [Primary Care Provider] - 1-2 days Time of Disposition: 23:49
[2017-12-20 00:02] VITALS: BP 156/85; RESP 18; TEMP 97.7
== END 2017-12-20 00:02 | disposition home or self-care (01) ==
LOC: EC 20:59
DX: S81.811A Laceration without foreign body, right lower leg, initial encounter (principal); J45.909 Unspecified asthma, uncomplicated; E11.9 Type 2 diabetes mellitus without complications; E78.5 Hyperlipidemia, unspecified; I10 Essential (primary) hypertension; Z87.891 Personal history of nicotine dependence; Z79.899 Other long term (current) drug therapy; Z79.52 Long term (current) use of systemic steroids; Z79.4 Long term (current) use of insulin; Z23 Encounter for immunization; Z53.29 Procedure and treatment not carried out because of patient's decision for other reasons; W26.0XXA Contact with knife, initial encounter; Y92.009 Unspecified place in unspecified non-institutional (private) residence as the place of occurrence of the external cause
CPT/HCPCS: 12002; 90471; 90715; 99282

== ENCOUNTER → 2018-02-25 | Outpatient (CLI) | payer OTHER ==
[2018-02-25 13:18] LABS: HCT 45.2 % (39.0-53.0); MCH 32.8 pg (25.0-35.0); MCHC 33.1 g/dL (31.0-37.0); MCV 99.2 fL (80.0-100.0); Mean Platelet Volume 7.9; Platelet Count 283 k/uL (150-450); RBC 4.56 m/uL (4.30-5.90); RDW 14.2 % (11.5-15.5)
[2018-02-25 13:29] LABS: Partial Thromboplastin Time 23.4 sec (22.0-30.0); Prothrombin Time 9.9 sec (9.0-12.0)
[2018-02-25 13:31] LABS: ALT 32 U/L (21-72); AST 26 U/L (17-59); Albumin 4.6 g/dL (3.5-5.0); Alkaline Phosphatase 61 U/L (38-126); Anion Gap 12 mmol/L; Blood Urea Nitrogen 11 mg/dL (9-20); Carbon Dioxide 28 mmol/L (22-30); Chloride 102 mmol/L (98-107); Glucose 228 mg/dL (74-99); Potassium 4.5 mmol/L (3.5-5.1); Sodium 142 mmol/L (137-145); Total Bilirubin 0.3 mg/dL (0.2-1.3); Total Protein 7.9 g/dL (6.3-8.2)
[2018-02-25 13:41] LABS: Appearance,Urine Clear (Clear); Bilirubin,Urine Negative (Negative); Blood,Urine Negative (Negative); Color,Urine Yellow; Glucose,Urine (UA) 4+ (Negative); Ketones,Urine Negative (Negative); Leukocyte Esterase,Urine Trace (Negative); Mucus,Urine Moderate /hpf; Nitrite,Urine Negative (Negative); PH, Urine 5.5 (5.0-8.0); Protein,Urine Negative (Negative); RBC,Urine 1 /hpf (0-5); Urobilinogen,Urine <2.0 mg/dL (<2.0); WBC,Urine 3 /hpf (0-5)
== END | disposition home or self-care (01) ==
LOC: LABPAT 11:59
PROVIDERS: ATTEND Orthopaedic Surgery
DX: Z01.818 Encounter for other preprocedural examination (principal); Z01.812 Encounter for preprocedural laboratory examination
CPT/HCPCS: 36415; 80053; 81001; 85027; 85610; 85730; 87070; 93005

== ENCOUNTER 2018-03-07 06:53 | Inpatient (IN) | payer OTHER ==
[2018-03-03 10:00] VITALS: BMI 29.7
[~2018-03-07 06:53] MED LIST changes: +ACETAMINOPHEN TAB 500 MG TAB PO ONE; +DEXAMETHASONE SOD PHOSPHATE 10 MG/ML 1 ML VIAL IV ONE; +MELOXICAM 7.5 MG TAB PO ONE; +MIDAZOLAM 2 MG/2 ML VIAL IV PRN; +ONDANSETRON 4 MG/2 ML VIAL IVP ONE; -SCOPOLAMINE 1.5MG/72HR PATCH TRANSDERM ONE; -TRANEXAMIC ACID 1,000 MG in SODIUM CHLORIDE 0.9% 100 ML IVPB ONE; +TRANEXAMIC ACID 1,000 MG in SODIUM CHLORIDE 0.9% 50 ML IVPB ONE; -ceFAZolin 2 GM in SODIUM CHLORIDE 0.9% 100 ML IVPB ONE; +ceFAZolin IN SWFI 2 GM/20 ML SYRINGE IVP ONE; +fentaNYL (PF) 50 MCG/ML 2 ML AMP IV PRN
[2018-03-07] MEDS ORDERED: ONDANSETRON 4 MG/2 ML VIAL ONE (07:47)
[2018-03-07] MEDS: LACTATED RINGERS 1,000 ML IV SCH ×2 (08:05→12:02)
[2018-03-07 08:14] LABS: Glucose,Whole Blood 199 mg/dL (75-99)
[2018-03-07] MEDS ORDERED: NALOXONE 0.4 MG/ML 1 ML VIAL IV PRN (08:55)
[2018-03-07] MEDS ORDERED: HYDROmorphone 1 MG/ML 1 ML SYRINGE IVP PRN ×3 (08:55)
[2018-03-07] MEDS ORDERED: MAGNESIUM HYDROXIDE 2,400 MG/10 ML CUP PO PRN (08:55)
[2018-03-07] MEDS ORDERED: ONDANSETRON 4 MG/2 ML VIAL IVP PRN (08:55)
[2018-03-07] MEDS ORDERED: hydrOXYzine PAMOATE 25 MG CAP PO PRN (08:55)
[2018-03-07] MEDS ORDERED: DIAZEPAM 5 MG TAB PO PRN ×2 (08:55)
[2018-03-07] MEDS ORDERED: HYDROcodone/APAP 5-325MG 1 EACH TAB PO PRN (08:55)
[2018-03-07] MEDS ORDERED: MIDAZOLAM 2 MG/2 ML VIAL ONE ×2 (09:18→09:38)
[2018-03-07] MEDS ORDERED: MIDAZOLAM 2 MG/2 ML VIAL IVP ONE (09:23)
[2018-03-07] MEDS ORDERED: SODIUM CHLORIDE 0.9% 100 ML BAG ONE (09:38)
[2018-03-07] MEDS ORDERED: TRANEXAMIC ACID 1,000 MG/10 ML VIAL ONE (09:38)
[2018-03-07] MEDS ORDERED: PROPOFOL 10 MG/ML 20 ML VIAL IV ONE (09:38)
[2018-03-07] MEDS ORDERED: fentaNYL (PF) 50 MCG/ML 2 ML AMP ONE (09:38)
[2018-03-07] MEDS ORDERED: ceFAZolin 3,000 MG in SODIUM CHLORIDE 0.9% IRRIGATIO 3,000 ML IRRIGATION ONE (10:13)
[2018-03-07] MEDS ORDERED: LACTATED RINGERS 1,000 ML IV ONE (10:36)
--- NOTE | 2018-03-07 11:10 | P.OP ---
Date of Procedure: 03/07/18 Preoperative Diagnosis: Severe osteoarthritis right hip Postoperative Diagnosis: Severe osteoarthritis right hip Procedure(s) Performed: Right total hip arthroplasty with a direct anterior approach Implants: [employer]on [employer] nephew Polarstem size 7 standard [employer]hew R3, 3 hole acetabular shell, 56 mm [employer]hew reflection 6.5 mm cancellus screw, 20 mm, 25 mm [employer] R3, XLPE 20 acetabular liner [employer]hew Oxinium femoral head 36 m, +8 All components were press-fit. The articulation is Oxinium on polyethylene. Anesthesia: spinal Surgeon: Suleman Castillo Solid Waste Manager #1: Cecy May Estimated Blood Loss (ml): 300 (128 mL returned with Cell Saver) Pathology: other (Femoral head) Condition: stable Disposition: PACU Indications for Procedure: After failure of conservative treatment we discussed the surgical and nonsurgical treatment options at length. Patient wishes to proceed with a total hip arthroplasty with a direct anterior approach. Complications specific to this procedure were discussed at length, including but not limited to infection, leg length discrepancy, dislocation, and nerve injury. Patient is aware of all these complications and informed consent was obtained Operative Findings: The operative findings are consistent with severe osteoarthritis of the right hip Description of Procedure: Patient was seen and evaluated in the preoperative area, consent was reviewed, and the surgical site was marked with a skin marker. Patient was then brought to the operating room and given prophylactic antibiotics intravenously. 1 g of Tranexamic acid was also given. A spinal anesthetic was administered by the anesthesia department. The patient was then placed on the [place] table with the bony prominences well-padded. The hip area was then prepped and draped in usual sterile fashion. A universal timeout was then performed, which confirmed the patient's name, surgical site, ALLERGIES, and procedure being performed. Next the incision site was located at 1 cm distal and 1 cm lateral to the anterior superior iliac spine. The skin and subcutaneous tissues were sharply incised. Incision was carefully dissected down to the fascia overlying the tensor fascia marcelina muscle. This fascia was then incised in line with the incision. Next, using blunt finger dissection, the tensor fascia marcelina muscle was dissected off its investing fascia. The muscle was then carefully retracted laterally with a cobra retractor over the lateral neck of the femur. Next, the circumflex vessels were identified and cauterized using the AquaMantis device. The anterior hip capsule was then exposed. The capsule was then opened and an inverted T fashion. Cobra retractors were then placed intracapsularly. The proximal femur was then visualized. The femoral neck was then osteotomized appropriate level above the lesser trochanter. Small amount of traction was placed with the [place] table. A small wedge of bone was then removed from the remaining femoral head. Next, using a corkscrew femoral head was easily removed from the acetabulum. On gross visual inspection, the femoral head had complete loss of articular cartilage in multiple periarticular osteophytes. Attention was then turned to the acetabulum. the acetabulum was exposed and any remaining labrum was excised. Sequential reaming of the acetabulum was performed using fluoroscopic guidance. When the appropriate size was reached, a trial was then placed. The position and fit of the trial was checked with fluoroscopy. The trial was then removed. Then, using fluoroscopic guidance, the final implant was impacted at 20 of anteversion and 40 of abduction, and fully seated in the acetabulum. 2 screws were then placed in the acetabulum. Again fluoroscopy was used to check position of the screws. Next, the liner was then impacted, with a 20 elevated liner located in the anterior superior quadrant. Component locking was confirmed. Attention was then directed to the femur. With the aid of the [place] table, the femur was externally rotated to approximately 130, extended, and abducted under the opposite leg. A side hook was then placed under the proximal femur, and the side hook elevator was used to elevate the proximal femur. Retractors were then placed. A capsular release was performed, as well as a release of the conjoined tendon, which afforded excellent visualization of the proximal femur. Next, a box osteotome was used to lateralize the proximal femur. A punch machine hand was then used to locate the femoral canal. Sequential broaching was then performed with appropriate size which afforded excellent fixation in the proximal femur. A trial was then placed with appropriate head and neck, and the hip was gently reduced with the aid of the [place] table. Fluoroscopy was then used to check position of the components, as well as to ensure equal leg lengths. The hip was then gently dislocated and the trials were then removed. Final implants were then impacted and the hip was again reduced. Final fluoroscopic x-rays confirmed that the components were in anatomic position, as well as equal leg lengths. The hip was also taken through range of motion, and found to be stable. The hip was then copiously irrigated with antibiotic solution with pulsatile lavage. The hip was then irrigated with Irrisept solution. The soft tissues were then injected with a ropivacaine solution, which consisted of 246.25 mg of ropivacaine, 0.5 mg of epinephrine, 30 mg of Toradol, 80 g of clonidine, and 48.45 mL of sterile water, for a total of 100 mL of fluid injected. A second dose of 1 g of Tranexamic acid was also given. the fascia was then closed with 2-0 strata fix suture. The subcutaneous tissue was closed with 3-0 Vicryl. The subcuticular tissue was closed with 3-0 strata fix suture. The skin was then closed with Dermabond glue and a sterile silver dressing. The patient was then transferred to the recovery room in stable condition. The elementary assistant teacher NICOLETTE Ratliff was required due to the complexity of surgery, and the need for skilled histology assistant for positioning, draping, exposure, retraction, and closure of the wound.
--- NOTE | 2018-03-07 11:11 | FL ---
EXAMINATION TYPE: FL guidance operating room DATE OF EXAM: 03/07/2018 HISTORY: Flouroscopy time 56 seconds of fluoroscopy provided. IMPRESSION: 1. Fluoroscopy time.
[2018-03-07 11:38] LABS: Glucose,Whole Blood 220 mg/dL (75-99)
[2018-03-07] MEDS: MEPERIDINE 50 MG/ML SYRINGE IVP ONE ×2 (11:43→11:58)
[2018-03-07] MEDS ORDERED: INSULIN ASPART 100 UNIT/ML 1 ML 10 ML VIAL SQ ONE (11:44)
[2018-03-07] MEDS: SODIUM CHLORIDE 0.9% 1,000 ML IV SCH ×2 (12:01→17:20)
--- NOTE | 2018-03-07 12:05 | XR ---
EXAMINATION TYPE: XR Hip Limited RT DATE OF EXAM: 03/07/2018 COMPARISON: NONE HISTORY: Postsurgical TECHNIQUE: One view submitted. FINDINGS: There is a prosthetic hip in near anatomic alignment. There is soft tissue edema and emphysema. IMPRESSION: 1. Postoperative change. Appears in near-anatomic alignment.
[2018-03-07] MEDS: HYDROmorphone 1 MG/ML 1 ML SYRINGE IVP ONE ×2 (12:23→12:34)
[2018-03-07] MEDS ORDERED: ALBUTEROL NEBULIZED 2.5 MG/3 ML INHALATION PRN (13:19)
--- NOTE | 2018-03-07 13:44 | P.CONS ---
History of Present Illness - Reason for Consult Consult date: 03/07/18 Medical management Requesting physician: Suleman Castillo - Chief Complaint Status post right total hip arthroplasty - History of Present Illness This is a 62-year-old male with a known history of osteoarthritis, hyperlipidemia, diabetes mellitus and COPD. Patient underwent a right total hip arthroplasty with a direct anterior approach today for severe ulcer arthritis of the right hip. He tolerated surgery well. Estimated blood loss 300 mL. Patient denies any chest pain or shortness of breath, nausea or vomiting, bowel movement changes or urinary symptoms. Denies any fever chills or sweats. We have been consulted for medical management. Review of Systems Please refer to HPI otherwise unremarkable Past Medical History Past Medical History: Asthma, Diabetes Mellitus, Hyperlipidemia, Hypertension Additional Past Medical History / Comment(s): [place], chronic hip pain, History of Any Multi-Drug Resistant Organisms: None Reported Past Surgical History: Joint Replacement Additional Past Surgical History / Comment(s): lt hip replacement Past Anesthesia/Blood Transfusion Reactions: Previous Problems w/ Anesthesia Additional Past Anesthesia/Blood Transfusion Reaction / Comm: pt states was unable to receive spinal tap with last surgery d/t arthritis in back received general anesthetic" Past Psychological History: No Psychological Hx Reported Smoking Status: Former smoker Past Alcohol Use History: None Reported Additional Past Alcohol Use History / Comment(s): QUIT SMOKING 2005. SMOKED 1 PPD FOR A COUPLE YEARS. Past Drug Use History: Marijuana Additional Drug Use History / Comment(s): DIGESTS MARIJUANA IN A TEA FOR PAIN. - Past Family History Mother Family Medical History: No Reported History Medications and Allergies Home Medications Medication Instructions Recorded Confirmed Type Atorvastatin Calcium [Lipitor] 20 mg PO HS 02/03/14 03/07/18 History Insulin Aspart [NovoLOG] 20 unit SQ TID-W/MEALS 02/03/14 03/07/18 History Insulin Detemir [Levemir] 30 unit SQ HS 02/03/14 03/07/18 History metFORMIN HCL [Glucophage] 500 mg PO BID 02/03/14 03/07/18 History Lisinopril [Prinivil] 20 mg PO DAILY 08/05/14 03/07/18 History Montelukast [Singulair] 10 mg PO HS 08/05/14 03/07/18 History Albuterol Sulfate [Proair Hfa] 2 puff INHALATION RT-Q6H PRN 08/18/16 03/07/18 History Omalizumab [Xolair] 150 mg SQ Q30D 08/18/16 03/07/18 History HYDROcodone/APAP 7.5-325MG [[place] 1 - 2 tab PO Q6HR PRN 03/07/18 03/07/18 History 7.5] Allergies Allergy/AdvReac Type Severity Reaction Status Date / Time No Known Allergies Allergy Verified 03/07/18 09:16 Physical Exam Vitals: Vital Signs Temp Pulse Resp BP Pulse Ox 03/07/18 12:45 78 16 138/67 97 03/07/18 12:33 89 16 142/70 97 03/07/18 12:15 79 16 138/59 98 03/07/18 12:00 77 16 137/65 99 03/07/18 11:45 101 H 16 149/97 99 03/07/18 11:30 98.2 F 94 18 133/77 98 03/07/18 07:33 97.3 F L 76 18 161/91 97 Intake and Output 03/06/18 03/07/18 03/07/18 22:59 06:59 14:59 Intake Total 1601 Output Total 300 Balance 1301 Intake: IV 1601 Output: Estimated Blood Loss 300 Other: Weight 93.894 kg Head normocephalic Neck supple Lungs clear to auscultation bilaterally no wheezing or crackles Heart regular rate and rhythm S1-S2, no rub or gallop Abdomen is soft nontender nondistended positive bowel sounds no hepatosplenomegaly Extremities right hip dressing clean dry and intact. Area around dressing no evidence of cellulitis. Patient is able to wiggle his toes. No numbness. +2 dorsalis pedis pulse. Neuro alert and orientated to 3 Results Labs: Abnormal Lab Results - Last 24 Hours (Table) 03/07/18 03/07/18 Range/Units 08:00 11:36 POC Glucose (mg/dL) 199 H 220 H (75-99) mg/dL Assessment and Plan Assessment: 1. Severe osteoarthritis right hip: Status post right total hip arthroplasty. Surgery completed by Dr. Castillo. Continue aspirin 325 mg twice a day and SCDs for DVT prophylaxis. Continue current pain control per orthopedic 2. Hyperlipidemia continue statin 3. Insulin-dependent diabetes mellitus, type II: Resume Levemir, metformin and scheduled NovoLog. This patient on sliding scale coverage with Accu-Cheks every before meals and at bedtime 4. Essential hypertension: Resume lisinopril 5. History of COPD: Stable. No evidence of exacerbation. Resume Singulair and albuterol inhaler GI prophylaxis Pepcid and DVT prophylaxis aspirin and SCDs Thank you for this consultation. We will continue to follow along during patient's hospitalization Time with Patient: Greater than 30 (Greater than 60% of the total time spent in counseling and coordination of care.I performed an examination of the patient and discussed their management with the physician Sound Controller. I have reviewed the Physician Sound Controller's notes and agree with the documented findings and plan of care)
[2018-03-07 14:07] LABS: Basophils % (A) 0 %; Eosinophils % (A) 0 %; HCT 40.5 % (39.0-53.0); HGB 13.3 gm/dL (13.0-17.5); Lymphocytes # (A) 0.6 k/uL (1.0-4.8); Lymphocytes % (A) 4 %; MCH 33.3 pg (25.0-35.0); MCHC 32.9 g/dL (31.0-37.0); MCV 101.2 fL (80.0-100.0); Macrocytosis Slight; Mean Platelet Volume 7.9; Monocytes # (A) 0.3 k/uL (0-1.0); Monocytes % (A) 2 %; Neutrophils # (A) 13.4 k/uL (1.3-7.7); Neutrophils % (A) 93 %; Platelet Count 292 k/uL (150-450); RBC 4.01 m/uL (4.30-5.90); RDW 14.1 % (11.5-15.5); WBC 14.4 k/uL (3.8-10.6)
[2018-03-07] MEDS: ceFAZolin IN SWFI 2 GM/20 ML SYRINGE IVP SCH ×2 (17:16→23:17)
[2018-03-07 17:26] LABS: Glucose,Whole Blood 289 mg/dL (75-99)
[2018-03-07] MEDS: INSULIN ASPART 100 UNIT/ML 1 ML 10 ML VIAL SQ SCH ×3 (17:49→21:22)
[2018-03-07] MEDS: HYDROcodone/APAP 5-325MG 1 EACH TAB PO PRN (19:09)
[2018-03-07 20:54] LABS: Glucose,Whole Blood 294 mg/dL (75-99)
[2018-03-07] MEDS ORDERED: ATORVASTATIN 20 MG TAB PO SCH (21:00)
[2018-03-07] MEDS ORDERED: INSULIN DETEMIR 100 UNIT/ML 10 ML VIAL SQ SCH (21:00)
[2018-03-07] MEDS ORDERED: SENNOSIDES-DOCUSATE SODIUM 1 EACH TAB PO SCH (21:00)
[2018-03-07] MEDS ORDERED: MONTELUKAST 10 MG TAB PO SCH (21:00)
[2018-03-07 21:04] LABS: Hemoglobin A1C 7.9 % (4.0-6.0)
[2018-03-07] MEDS: ASPIRIN 325 MG TAB PO SCH (21:20)
[2018-03-07] MEDS: metFORMIN 500 MG TAB PO SCH (21:21)
[2018-03-08] MEDS: HYDROcodone/APAP 5-325MG 1 EACH TAB PO PRN ×2 (01:06→08:08)
[2018-03-08 02:39] VITALS: PULSE 83
[2018-03-08 07:07] VITALS: BP 131/77; RESP 18; TEMP 97.7
[2018-03-08 07:18] LABS: Glucose,Whole Blood 226 mg/dL (75-99)
[2018-03-08 07:45] LABS: Basophils % (A) 0 %; Eosinophils % (A) 0 %; HCT 33.9 % (39.0-53.0); Lymphocytes # (A) 2.2 k/uL (1.0-4.8); Lymphocytes % (A) 17 %; MCH 32.7 pg (25.0-35.0); MCHC 32.6 g/dL (31.0-37.0); MCV 100.3 fL (80.0-100.0); Macrocytosis Slight; Mean Platelet Volume 7.8; Monocytes # (A) 1.4 k/uL (0-1.0); Monocytes % (A) 11 %; Neutrophils % (A) 70 %; Platelet Count 273 k/uL (150-450); RBC 3.38 m/uL (4.30-5.90); RDW 14.4 % (11.5-15.5); WBC 12.9 k/uL (3.8-10.6)
[2018-03-08] MEDS: ASPIRIN 325 MG TAB PO SCH (07:57)
[2018-03-08] MEDS: metFORMIN 500 MG TAB PO SCH (07:58)
[2018-03-08] MEDS: INSULIN ASPART 100 UNIT/ML 1 ML 10 ML VIAL SQ SCH ×4 (08:01→12:39)
[2018-03-08 08:08] LABS: ALT 28 U/L (21-72); AST 40 U/L (17-59); Albumin 3.5 g/dL (3.5-5.0); Alkaline Phosphatase 43 U/L (38-126); Anion Gap 10 mmol/L; Blood Urea Nitrogen 13 mg/dL (9-20); Calcium 8.9 mg/dL (8.4-10.2); Carbon Dioxide 26 mmol/L (22-30); Chloride 105 mmol/L (98-107); Glucose 201 mg/dL (74-99); Potassium 4.2 mmol/L (3.5-5.1); Sodium 141 mmol/L (137-145); Total Bilirubin 0.5 mg/dL (0.2-1.3); Total Protein 5.8 g/dL (6.3-8.2)
[2018-03-08] MEDS ORDERED: MELOXICAM 7.5 MG TAB PO SCH (09:00)
[2018-03-08] MEDS ORDERED: LISINOPRIL 20 MG TAB PO SCH (09:00)
[2018-03-08] MEDS ORDERED: FAMOTIDINE 20 MG TAB PO SCH (09:00)
--- NOTE | 2018-03-08 09:22 | P.DS ---
Providers Date of admission: 03/07/18 06:53 Expected date of discharge: 03/08/18 Attending physician: Suleman Castillo Consults: 03/07/18 08:55 Consult Physician Routine Consulting Provider: Felipe Phillips Consult Reason/Comments: medical management Do you want consulting provider notified?: Yes 03/07/18 11:50 Consult Physician Routine Consulting Provider: Catherine Barry Consult Reason/Comments: medical managment Do you want consulting provider notified?: Yes Primary care physician: Felipe Phillips - Discharge Diagnosis(es) (1) Primary osteoarthritis of right hip Current Visit: Yes Status: Acute (2) S/P total hip arthroplasty Current Visit: Yes Status: Acute Hospital Course: This is a 62-year-old male with known history of degenerative arthritis of the right hip. The patient presents for evaluation. After discussion and consideration patient elects to proceed with total hip arthroplasty. The patient is seen preoperatively by Dr. Castillo and medically cleared for surgery by their primary care physician. Patient is admitted to [facility] on 03/07/2018 for total hip arthroplasty. The procedures performed without complication or sequelae. The patient is doing well postoperatively. Labs and vital signs are stable on day of discharge. On day of discharge patient's hip incision is healing well. There is minimal erythema. There is no drainage noted at this time. There is minimal soft tissue swelling to the hip and thigh. Patient has full foot and ankle motion without difficulty or pain. Neurovascular status to the right lower extremity is intact. Patient is discharged home in good condition. Please see med rec for accurate list of home medications. Plan - Discharge Summary Discharge Rx Participant: Yes New Discharge Prescriptions: New Aspirin 325 mg PO BID #60 tab HYDROcodone/APAP 5-325MG [[place] 5-325] 1 - 2 tab PO Q4-6H PRN #84 tab PRN Reason: Pain Sennosides [Senokot] 1 tab PO BID #60 tablet hydrOXYzine PAMOATE [Vistaril] 25 mg PO Q6H PRN #30 capsule PRN Reason: Pain No Action Insulin Detemir [Levemir] 30 unit SQ HS metFORMIN HCL [Glucophage] 500 mg PO BID Atorvastatin Calcium [Lipitor] 20 mg PO HS Insulin Aspart [NovoLOG] 20 unit SQ TID-W/MEALS Lisinopril [Prinivil] 20 mg PO DAILY Montelukast [Singulair] 10 mg PO HS Albuterol Sulfate [Proair Hfa] 2 puff INHALATION RT-Q6H PRN PRN Reason: Shortness Of Breath Omalizumab [Xolair] 150 mg SQ Q30D HYDROcodone/APAP 7.5-325MG [[place] 7.5] 1 - 2 tab PO Q6HR PRN PRN Reason: Pain Discharge Medication List Atorvastatin Calcium [Lipitor] 20 mg PO HS 02/03/14 [History] Insulin Aspart [NovoLOG] 20 unit SQ TID-W/MEALS 02/03/14 [History] Insulin Detemir [Levemir] 30 unit SQ HS 02/03/14 [History] metFORMIN HCL [Glucophage] 500 mg PO BID 02/03/14 [History] Lisinopril [Prinivil] 20 mg PO DAILY 08/05/14 [History] Montelukast [Singulair] 10 mg PO HS 08/05/14 [History] Albuterol Sulfate [Proair Hfa] 2 puff INHALATION RT-Q6H PRN 08/18/16 [History] Omalizumab [Xolair] 150 mg SQ Q30D 08/18/16 [History] HYDROcodone/APAP 7.5-325MG [[place] 7.5] 1 - 2 tab PO Q6HR PRN 03/07/18 [History] Aspirin 325 mg PO BID #60 tab 03/08/18 [Rx] HYDROcodone/APAP 5-325MG [[place] 5-325] 1 - 2 tab PO Q4-6H PRN #84 tab 03/08/18 [ Rx] Sennosides [Senokot] 1 tab PO BID #60 tablet 03/08/18 [Rx] hydrOXYzine PAMOATE [Vistaril] 25 mg PO Q6H PRN #30 capsule 03/08/18 [Rx] Follow up Appointment(s)/Referral(s): Felipe Phillips MD [Primary Care Provider] - 1 Week Suleman Castillo DO [Doctor of Osteopathic Medicine] - 2 Weeks Patient Instructions/Handouts: Anterior Hip Replacement (DC) Activity/Diet/Wound Care/Special Instructions: Weightbearing as tolerated with walker Leave dressing intact. Dressing may be removed by home care nurse in 10 days. May shower with dressing on. Follow-up with [facility] in 2 weeks, please call with any questions or concerns [phone] Discharge Disposition: HOME WITH HOME HEALTH SERVICES
[2018-03-08 11:44] LABS: Glucose,Whole Blood 109 mg/dL (75-99)
--- NOTE | 2018-03-08 13:06 | P.PN ---
Subjective Progress Note Date: 03/08/18 Status post right total hip arthroplasty. Pain control. Patient scheduled for discharge. No new complaints. White count 12.9. No evidence of any acute infection. No fever. Incision site and dressing clean dry and intact Objective - Vital Signs Vital signs: Vital Signs Temp 97.7 F 03/08/18 07:06 Pulse 83 03/08/18 07:06 Resp 18 03/08/18 07:06 BP 131/77 03/08/18 07:06 Pulse Ox 97 03/08/18 01:00 Intake & Output 03/07/18 03/08/18 03/08/18 18:59 06:59 18:59 Intake Total 1666 Output Total 500 550 Balance 1166 -550 Weight 93.894 kg Intake: IV 1601 Intake, IV Titration 65 Amount Sodium Chloride 0.9% 1, 65 000 ml @ 65 mls/hr IV . [id number] [facility] Rx#:[id number] Output: Urine 200 550 Estimated Blood Loss 300 Other: Voiding Method Toilet Urinal # Voids 1 - Exam Head normocephalic Neck supple Lungs clear to auscultation bilaterally no wheezing or crackles Heart regular rate and rhythm S1-S2, no rub or gallop Abdomen is soft nontender nondistended positive bowel sounds no hepatosplenomegaly Extremities no edema area did dressing clean dry and intact. Skin around the dressing no evidence of cellulitis Neuro alert and orientated to 3 - Labs CBC & Chem 7: 03/08/18 06:53 03/08/18 06:53 Labs: Abnormal Lab Results - Last 24 Hours (Table) 03/07/18 03/07/18 03/07/18 Range/Units 13:45 13:45 17:14 WBC 14.4 H (3.8-10.6) k/uL RBC 4.01 L (4.30-5.90) m/uL Hgb (13.0-17.5) gm/dL Hct (39.0-53.0) % MCV 101.2 H (80.0-100.0) fL Neutrophils # 13.4 H (1.3-7.7) k/uL Lymphocytes # 0.6 L (1.0-4.8) k/uL Monocytes # (0-1.0) k/uL Glucose (74-99) mg/dL POC Glucose (mg/dL) 289 H (75-99) mg/dL Hemoglobin A1c 7.9 H (4.0-6.0) % Total Protein (6.3-8.2) g/dL 03/07/18 03/08/18 03/08/18 Range/Units 20:43 06:53 06:53 WBC 12.9 H (3.8-10.6) k/uL RBC 3.38 L (4.30-5.90) m/uL Hgb 11.0 L (13.0-17.5) gm/dL Hct 33.9 L (39.0-53.0) % MCV 100.3 H (80.0-100.0) fL Neutrophils # 9.0 H (1.3-7.7) k/uL Lymphocytes # (1.0-4.8) k/uL Monocytes # 1.4 H (0-1.0) k/uL Glucose 201 H (74-99) mg/dL POC Glucose (mg/dL) 294 H (75-99) mg/dL Hemoglobin A1c (4.0-6.0) % Total Protein 5.8 L (6.3-8.2) g/dL 03/08/18 03/08/18 Range/Units 07:02 11:41 WBC (3.8-10.6) k/uL RBC (4.30-5.90) m/uL Hgb (13.0-17.5) gm/dL Hct (39.0-53.0) % MCV (80.0-100.0) fL Neutrophils # (1.3-7.7) k/uL Lymphocytes # (1.0-4.8) k/uL Monocytes # (0-1.0) k/uL Glucose (74-99) mg/dL POC Glucose (mg/dL) 226 H 109 H (75-99) mg/dL Hemoglobin A1c (4.0-6.0) % Total Protein (6.3-8.2) g/dL Assessment and Plan Assessment: 1. Severe osteoarthritis right hip: Status post right total hip arthroplasty. Surgery completed by Dr. Castillo. Continue aspirin 325 mg twice a day and SCDs for DVT prophylaxis. Continue current pain control per orthopedic 2. Hyperlipidemia continue statin 3. Insulin-dependent diabetes mellitus, type II: Resume Levemir, metformin and scheduled NovoLog. This patient on sliding scale coverage with Accu-Cheks every before meals and at bedtime 4. Essential hypertension: Resume lisinopril 5. History of COPD: Stable. No evidence of exacerbation. Resume Singulair and albuterol inhaler 6. Leukocytosis likely reactive from surgery. No evidence of any acute infection. We'll have him check CBC in 3 days. Have him follow-up with his PCP in 5 days. Patient is medically stable for discharge. I performed an examination of the patient and discussed their management with the physician Window Decorator. I have reviewed the Physician Window Decorator's notes and agree with the documented findings and plan of care
== END 2018-03-08 13:35 | disposition home health service (06) | DRG 470 ==
LOC: 2ORMAIN 06:53 → 3SUR 11:34
PROVIDERS: ADMIT Orthopaedic Surgery; ATTEND Orthopaedic Surgery
PROC: 0SR902A Replacement of Right Hip Joint with Metal on Polyethylene Synthetic Substitute, Uncemented, Open Approach (ICD-10-PCS; principal; 2018-03-07 09:25)
DX: M16.11 Unilateral primary osteoarthritis, right hip (principal); D72.828 Other elevated white blood cell count; E11.9 Type 2 diabetes mellitus without complications; E78.5 Hyperlipidemia, unspecified; I10 Essential (primary) hypertension; J44.9 Chronic obstructive pulmonary disease, unspecified; Z79.4 Long term (current) use of insulin; Z79.899 Other long term (current) drug therapy; Z87.891 Personal history of nicotine dependence; Z96.642 Presence of left artificial hip joint; G89.29 Other chronic pain; Z83.3 Family history of diabetes mellitus; H91.90 Unspecified hearing loss, unspecified ear
CPT/HCPCS: 73501; 80053; 83036; 85025; 86850; 86891; 86900; 86901; 88300

== ENCOUNTER 2018-03-13 13:01 | Emergency (ER) | payer OTHER ==
[2018-03-13 13:08] VITALS: TEMP 98.4
[2018-03-13] MEDS ORDERED: SODIUM CHLORIDE 0.9% 500 ML IV STA (13:19)
--- NOTE | 2018-03-13 13:27 | ED ---
General Adult HPI - General Chief complaint: Extremity Problem,Nontraumatic Stated complaint: poss blood clot Time Seen by Provider: 03/13/18 13:20 Source: patient, RN notes reviewed, old records reviewed Mode of arrival: wheelchair Limitations: no limitations - History of Present Illness Initial comments: 62-year-old male presenting with right medial thigh pain and bruising. Patient is 6 days postop right hip replacement. He states he's had worsening pain in the medial aspect of his thigh since the operation. There is also bruising in this area. Denies any lower leg pain or swelling. Denies erythema or drainage from the surgical incision. Patient states he has had chills throughout the past several days. Denies cough, denies chest pain, denies dysuria. Denies abdominal pain nausea vomiting. - Related Data Home Medications Medication Instructions Recorded Confirmed Atorvastatin Calcium [Lipitor] 20 mg PO HS 02/03/14 03/13/18 Insulin Aspart [NovoLOG 20 unit SQ TID-W/MEALS 02/03/14 03/13/18 (formulary)] Insulin Detemir [Levemir] 30 unit SQ HS 02/03/14 03/13/18 metFORMIN HCL [Glucophage] 500 mg PO BID 02/03/14 03/13/18 Lisinopril [Prinivil] 20 mg PO DAILY 08/05/14 03/13/18 Montelukast [Singulair] 10 mg PO HS 08/05/14 03/13/18 Albuterol Sulfate [Proair Hfa] 2 puff INHALATION RT-Q6H PRN 08/18/16 03/13/18 Omalizumab [Xolair] 150 mg SQ Q30D 08/18/16 03/13/18 Aspirin 325 mg PO DAILY 03/13/18 03/13/18 Allergies Allergy/AdvReac Type Severity Reaction Status Date / Time No Known Allergies Allergy Verified 03/13/18 14:29 Review of Systems ROS Statement: Those systems with pertinent positive or pertinent negative responses have been documented in the HPI. ROS Other: All systems not noted in ROS Statement are negative. Past Medical History Past Medical History: Asthma, Diabetes Mellitus, Hyperlipidemia, Hypertension Additional Past Medical History / Comment(s): [place], chronic hip pain, History of Any Multi-Drug Resistant Organisms: None Reported Past Surgical History: Joint Replacement Additional Past Surgical History / Comment(s): lt hip replacement, right hip replacement Past Anesthesia/Blood Transfusion Reactions: Previous Problems w/ Anesthesia Additional Past Anesthesia/Blood Transfusion Reaction / Comment(s): pt states was unable to receive spinal tap with last surgery d/t arthritis in back received general anesthetic" Past Psychological History: No Psychological Hx Reported Smoking Status: Former smoker Past Alcohol Use History: Occasional Past Drug Use History: Marijuana - Past Family History Mother Family Medical History: No Reported History General Exam Limitations: no limitations General appearance: alert, in no apparent distress Head exam: Present: atraumatic, normocephalic Eye exam: Present: normal appearance, PERRL Neck exam: Present: normal inspection. Absent: tenderness, meningismus Respiratory exam: Present: normal lung sounds bilaterally. Absent: respiratory distress, wheezes Cardiovascular Exam: Present: normal rhythm, tachycardia GI/Abdominal exam: Present: soft. Absent: distended, tenderness, guarding Extremities exam: Present: other (Right leg, there is ecchymosis on the medial aspect of the thigh, surgical bandages clean dry and intact, no purulence. No distal swelling in the leg.) Neurological exam: Present: alert, oriented X3, CN II-XII intact. Absent: motor sensory deficit Psychiatric exam: Present: normal affect, normal mood Skin exam: Present: warm, dry, intact, other (Ecchymosis on the medial aspect right thigh.). Absent: cyanosis, diaphoretic Course Vital Signs 03/13/18 03/13/18 03/13/18 13:04 14:30 15:23 Temperature 98.4 F Pulse Rate 107 H 90 90 Respiratory 20 16 16 Rate Blood Pressure 94/65 145/83 153/84 O2 Sat by Pulse 99 98 99 Oximetry Medical Decision Making - Medical Decision Making 62-year-old male presented for evaluation of right lower extremity bruising. Concern for blood clot status post right hip surgery. There is no clinical signs of DVT. There is ecchymosis on the medial thigh which is likely postsurgical changes. No concern for postoperative infection at this time. Ultrasound is obtained, this negative for DVT. Patient did report chills, for that reason blood and urine testing was performed. This is negative for signs of infection. There is no pneumonia on chest x-ray. Reevaluation, patient is comfortable, normal vital signs. He does have an appointment with orthopedics in the next 4 days. He will maintain this point. Return with worsening or changing symptoms. - Lab Data Result diagrams: 03/13/18 13:14 03/13/18 13:14 Lab Results 03/13/18 03/13/18 03/13/18 Range/Units 13:14 13:14 13:14 WBC 8.2 (3.8-10.6) k/uL RBC 3.71 L (4.30-5.90) m/uL Hgb 11.9 L (13.0-17.5) gm/dL Hct 37.0 L (39.0-53.0) % MCV 99.7 (80.0-100.0) fL MCH 32.2 (25.0-35.0) pg MCHC 32.3 (31.0-37.0) g/dL RDW 14.2 (11.5-15.5) % Plt Count 482 H (150-450) k/uL Neutrophils % 66 % Lymphocytes % 25 % Monocytes % 5 % Eosinophils % 3 % Basophils % 0 % Neutrophils # 5.5 (1.3-7.7) k/uL Lymphocytes # 2.0 (1.0-4.8) k/uL Monocytes # 0.4 (0-1.0) k/uL Eosinophils # 0.2 (0-0.7) k/uL Basophils # 0.0 (0-0.2) k/uL Macrocytosis Slight Sodium 139 (137-145) mmol/L Potassium 4.0 (3.5-5.1) mmol/L Chloride 104 (98-107) mmol/L Carbon Dioxide 24 (22-30) mmol/L Anion Gap 11 mmol/L BUN 9 (9-20) mg/dL Creatinine 0.60 L (0.66-1.25) mg/dL Est GFR (CKD-EPI)AfAm >90 (>60 ml/min/1.73 sqM) Est GFR (CKD-EPI)NonAf >90 (>60 ml/min/1.73 sqM) Glucose 200 H (74-99) mg/dL POC Glucose (mg/dL) (75-99) mg/dL POC Glu Cap Sewer ID Plasma Lactic Acid Matty 1.8 (0.7-2.0) mmol/L Calcium 9.5 (8.4-10.2) mg/dL Total Bilirubin 0.5 (0.2-1.3) mg/dL AST 40 (17-59) U/L ALT 34 (21-72) U/L Alkaline Phosphatase 66 (38-126) U/L Total Protein 6.9 (6.3-8.2) g/dL Albumin 3.9 (3.5-5.0) g/dL Urine Color Urine Appearance (Clear) Urine pH (5.0-8.0) Ur Specific [place] (1.001-1.035) Urine Protein (Negative) Urine Glucose (UA) (Negative) Urine Ketones (Negative) Urine Blood (Negative) Urine Nitrite (Negative) Urine Bilirubin (Negative) Urine Urobilinogen (<2.0) mg/dL Ur Leukocyte Esterase (Negative) 03/13/18 03/13/18 Range/Units 13:34 14:35 WBC (3.8-10.6) k/uL RBC (4.30-5.90) m/uL Hgb (13.0-17.5) gm/dL Hct (39.0-53.0) % MCV (80.0-100.0) fL MCH (25.0-35.0) pg MCHC (31.0-37.0) g/dL RDW (11.5-15.5) % Plt Count (150-450) k/uL Neutrophils % % Lymphocytes % % Monocytes % % Eosinophils % % Basophils % % Neutrophils # (1.3-7.7) k/uL Lymphocytes # (1.0-4.8) k/uL Monocytes # (0-1.0) k/uL Eosinophils # (0-0.7) k/uL Basophils # (0-0.2) k/uL Macrocytosis Sodium (137-145) mmol/L Potassium (3.5-5.1) mmol/L Chloride (98-107) mmol/L Carbon Dioxide (22-30) mmol/L Anion Gap mmol/L BUN (9-20) mg/dL Creatinine (0.66-1.25) mg/dL Est GFR (CKD-EPI)AfAm (>60 ml/min/1.73 sqM) Est GFR (CKD-EPI)NonAf (>60 ml/min/1.73 sqM) Glucose (74-99) mg/dL POC Glucose (mg/dL) 209 H (75-99) mg/dL POC Glu Cap Sewer ID Awa Bass Plasma Lactic Acid Matty (0.7-2.0) mmol/L Calcium (8.4-10.2) mg/dL Total Bilirubin (0.2-1.3) mg/dL AST (17-59) U/L ALT (21-72) U/L Alkaline Phosphatase (38-126) U/L Total Protein (6.3-8.2) g/dL Albumin (3.5-5.0) g/dL Urine Color Yellow Urine Appearance Clear (Clear) Urine pH 6.0 (5.0-8.0) Ur Specific [place] 1.020 (1.001-1.035) Urine Protein Trace H (Negative) Urine Glucose (UA) 3+ H (Negative) Urine Ketones Negative (Negative) Urine Blood Negative (Negative) Urine Nitrite Negative (Negative) Urine Bilirubin Negative (Negative) Urine Urobilinogen 2.0 (<2.0) mg/dL Ur Leukocyte Esterase Negative (Negative) Disposition Clinical Impression: Status post left hip replacement Disposition: HOME SELF-CARE Condition: Good Instructions: Precautions after Total Joint Replacement Surgery (ED) Is patient prescribed a controlled substance at d/c from ED?: No Referrals: Felipe Phillips MD [Primary Care Provider] - 1-2 days Suleman Castillo DO [Doctor of Osteopathic Medicine] - 1-2 days Time of Disposition: 15:27
[2018-03-13 13:45] LABS: Basophils % (A) 0 %; Eosinophils # (A) 0.2 k/uL (0-0.7); Eosinophils % (A) 3 %; HGB 11.9 gm/dL (13.0-17.5); Lymphocytes % (A) 25 %; MCH 32.2 pg (25.0-35.0); MCHC 32.3 g/dL (31.0-37.0); MCV 99.7 fL (80.0-100.0); Macrocytosis Slight; Mean Platelet Volume 7.3; Monocytes # (A) 0.4 k/uL (0-1.0); Monocytes % (A) 5 %; Neutrophils # (A) 5.5 k/uL (1.3-7.7); Neutrophils % (A) 66 %; Platelet Count 482 k/uL (150-450); RBC 3.71 m/uL (4.30-5.90); RDW 14.2 % (11.5-15.5); WBC 8.2 k/uL (3.8-10.6)
[2018-03-13 14:01] LABS: ALT 34 U/L (21-72); AST 40 U/L (17-59); Albumin 3.9 g/dL (3.5-5.0); Alkaline Phosphatase 66 U/L (38-126); Anion Gap 11 mmol/L; Blood Urea Nitrogen 9 mg/dL (9-20); Calcium 9.5 mg/dL (8.4-10.2); Carbon Dioxide 24 mmol/L (22-30); Chloride 104 mmol/L (98-107); Glucose 200 mg/dL (74-99); Sodium 139 mmol/L (137-145); Total Bilirubin 0.5 mg/dL (0.2-1.3); Total Protein 6.9 g/dL (6.3-8.2)
[2018-03-13 14:02] LABS: Glucose,Whole Blood 209 mg/dL (75-99)
--- NOTE | 2018-03-13 14:21 | US ---
EXAMINATION TYPE: US venous doppler duplex LE RT DATE OF EXAM: 03/13/2018 2:13 PM COMPARISON: NONE CLINICAL HISTORY: Pain. total hip replacement 6 days ago, pain in right leg, no h/o dvt SIDE PERFORMED: Right TECHNIQUE: The lower extremity deep venous system is examined utilizing real time linear array sonog tunde with graded compression, doppler sonography and color-flow sonography. VESSELS IMAGED: External Iliac Vein (EIV) Common Femoral Vein Deep Femoral Vein Greater Saphenous Vein * Femoral Vein Popliteal Vein Small Saphenous Vein * Proximal Calf Veins (* superficial vessels) Grayscale, color doppler, spectral doppler imaging performed of the deep veins of the right lower ext remity. There is normal flow, compressibility, vascular waveforms. Right Leg: Appears negative for a DVT IMPRESSION: No sonographic evidence of deep venous thrombosis within the right lower extremity.
[2018-03-13 14:49] LABS: Appearance,Urine Clear (Clear); Bilirubin,Urine Negative (Negative); Blood,Urine Negative (Negative); Color,Urine Yellow; Glucose,Urine (UA) 3+ (Negative); Ketones,Urine Negative (Negative); Leukocyte Esterase,Urine Negative (Negative); Nitrite,Urine Negative (Negative); Protein,Urine Trace (Negative)
--- NOTE | 2018-03-13 14:54 | XR ---
EXAMINATION TYPE: XR chest 2V DATE OF EXAM: 03/13/2018 COMPARISON: NONE HISTORY: Lower extremity edema. Chest pain. TECHNIQUE: Frontal and lateral views of the chest are obtained. FINDINGS: There is no focal air space opacity, pleural effusion, or pneumothorax seen. The cardiac silhouette size is within normal limits. The osseous structures are intact. Mild degenerative brown es of the thoracic spine and acromioclavicular joints are noted. IMPRESSION: No acute cardiopulmonary process.
[2018-03-13 15:24] VITALS: BP 153/84; PULSE 90; RESP 16
== END 2018-03-13 15:40 | disposition home or self-care (01) ==
LOC: EC 13:01
DX: M79.651 Pain in right thigh (principal); G89.18 Other acute postprocedural pain; J45.909 Unspecified asthma, uncomplicated; E11.9 Type 2 diabetes mellitus without complications; E78.5 Hyperlipidemia, unspecified; I10 Essential (primary) hypertension; Z96.643 Presence of artificial hip joint, bilateral; Z87.891 Personal history of nicotine dependence; Z79.4 Long term (current) use of insulin; Z79.82 Long term (current) use of aspirin; Z79.899 Other long term (current) drug therapy
CPT/HCPCS: 36415; 71046; 80053; 81003; 83605; 85025; 87040; 96360; 99284

== ENCOUNTER 2018-05-29 20:45 | Emergency (ER) | payer OTHER ==
[2018-05-29 21:01] VITALS: BP 143/88
[2018-05-29] MEDS ORDERED: MORPHINE SULFATE 4 MG/ML SYRINGE IVP STA (21:36)
--- NOTE | 2018-05-29 21:42 | ED ---
Fall HPI - General Chief Complaint: Fall Stated Complaint: hip pain Time Seen by Provider: 05/29/18 21:14 Source: patient, EMS Mode of arrival: EMS - History of Present Illness Initial Comments: Easton Reed is a 62-year-old male with a past medical history most significant for bilateral hip replacements, his left hip was operated on in February of this ear. Patient reports that on Wednesday he had a mechanical trip and fall at his home. He reports that since that time he said significant pain in his left hip. Patient reports that he's been unable to bear weight due to the pain. He states that for the past 2 days he's been using a wheelchair due to his inability to bear weight on his left foot. Patient denies any additional complaints including fevers, chills, headache, vision change, chest pain, shortness of breath, nausea, vomiting. He reports he 's been able to eat and drink well despite being unable to walk. Patient does report that he was previously prescribed [place] tens and that he is currently out of these. - Related Data Home Medications Medication Instructions Recorded Confirmed Atorvastatin Calcium [Lipitor] 20 mg PO HS 02/03/14 03/13/18 Insulin Aspart [NovoLOG 20 unit SQ TID-W/MEALS 02/03/14 03/13/18 (formulary)] Insulin Detemir [Levemir] 30 unit SQ HS 02/03/14 03/13/18 metFORMIN HCL [Glucophage] 500 mg PO BID 02/03/14 03/13/18 Lisinopril [Prinivil] 20 mg PO DAILY 08/05/14 03/13/18 Montelukast [Singulair] 10 mg PO HS 08/05/14 03/13/18 Albuterol Sulfate [Proair Hfa] 2 puff INHALATION RT-Q6H PRN 08/18/16 03/13/18 Omalizumab [Xolair] 150 mg SQ Q30D 08/18/16 03/13/18 Aspirin 325 mg PO DAILY 03/13/18 03/13/18 Allergies Allergy/AdvReac Type Severity Reaction Status Date / Time No Known Allergies Allergy Verified 03/13/18 14:29 Review of Systems ROS Statement: Those systems with pertinent positive or pertinent negative responses have been documented in the HPI. ROS Other: All systems not noted in ROS Statement are negative. Past Medical History Past Medical History: Asthma, Diabetes Mellitus, Hyperlipidemia, Hypertension Additional Past Medical History / Comment(s): [place], chronic hip pain, History of Any Multi-Drug Resistant Organisms: None Reported Past Surgical History: Joint Replacement Additional Past Surgical History / Comment(s): lt hip replacement, right hip replacement Past Anesthesia/Blood Transfusion Reactions: Previous Problems w/ Anesthesia Additional Past Anesthesia/Blood Transfusion Reaction / Comment(s): pt states was unable to receive spinal tap with last surgery d/t arthritis in back received general anesthetic" Past Psychological History: No Psychological Hx Reported Smoking Status: Former smoker Past Alcohol Use History: Occasional Past Drug Use History: Marijuana - Past Family History Mother Family Medical History: No Reported History General Exam - General Exam Comments Initial Comments: GENERAL: Chronically ill-appearing, appears older than stated age HENT: Normocephalic, Atraumatic. EYES: The sclera were anicteric and conjunctiva were pink and moist. Extraocular movements were intact and pupils were equal round and reactive to light. Eyelids were unremarkable. PULMONARY: Unlabored respirations. CARDIOVASCULAR: There is a regular rate and rhythm without any murmurs gallops or rubs. ABDOMEN: Soft and nontender with normal bowel sounds. SKIN: Skin is pale and dry, areas of depigmentation concerning for vitiligo Bilateral feet with skin changes consistent with a fungal infection NEUROLOGIC: Patient is alert and oriented x3. Cranial nerves II through XII are grossly intact. Motor and sensory are also intact. Normal speech, volume and content. Symmetrical smile. MUSCULOSKELETAL: Decreased range of motion of left hip secondary to pain, no obvious deformity no shortening or rotation of the limb Lower surety is warm and well perfused LYMPHATICS: No significant lymphadenopathy is noted PSYCHIATRIC: Normal psychiatric evaluation. Limitations: no limitations Limitations: physical limitation Course Vital Signs 05/29/18 05/29/18 20:54 23:01 Temperature 97.9 F Pulse Rate 92 Respiratory 19 18 Rate Blood Pressure 143/88 O2 Sat by Pulse 99 Oximetry Medical Decision Making - Medical Decision Making The patient was seen and evaluated history was obtained from the patient Patient reports a fall 2 days ago with persistent left hip pain. Has been able to transition from bed to wheelchair but reports he's been minimally ambulatory Patient does admit that he is currently out of his pain meds which he takes regularly Physical exam with no acute abnormalities. Patient has good range of motion of the left hip with minimal discomfort. No overlying redness or warmth to palpation. No evidence of bruising, no obvious dislocation no shortening or rotation of the leg. The leg is warm and well perfused. Labs and imaging were ordered Labs reveal an elevated blood glucose but no other significant abnormalities Imaging reveals no acute bony pathology Results were discussed with the patient who is agreeable with the plan for discharge home, will contact his orthopedic surgeon tomorrow for reevaluation and discussion of new [place] prescription. Single PO [place] was ordered prior to discharge Return parameters discussed, all questions pertaining to care were answered best my ability patient was discharged home - Lab Data Result diagrams: 05/29/18 21:40 05/29/18 21:40 Lab Results 05/29/18 05/29/18 05/29/18 Range/Units 21:40 21:40 21:40 WBC 10.7 H (3.8-10.6) k/uL RBC 4.47 (4.30-5.90) m/uL Hgb 12.9 L (13.0-17.5) gm/dL Hct 40.0 (39.0-53.0) % MCV 89.6 (80.0-100.0) fL MCH 28.9 (25.0-35.0) pg MCHC 32.2 (31.0-37.0) g/dL RDW 15.3 (11.5-15.5) % Plt Count 358 (150-450) k/uL Neutrophils % 75 % Lymphocytes % 17 % Monocytes % 6 % Eosinophils % 1 % Basophils % 0 % Neutrophils # 8.0 H (1.3-7.7) k/uL Lymphocytes # 1.8 (1.0-4.8) k/uL Monocytes # 0.7 (0-1.0) k/uL Eosinophils # 0.1 (0-0.7) k/uL Basophils # 0.0 (0-0.2) k/uL PT (9.0-12.0) sec INR (<1.2) APTT (22.0-30.0) sec Sodium 138 (137-145) mmol/L Potassium 4.9 (3.5-5.1) mmol/L Chloride 101 (98-107) mmol/L Carbon Dioxide 26 (22-30) mmol/L Anion Gap 11 mmol/L BUN 9 (9-20) mg/dL Creatinine 0.57 L (0.66-1.25) mg/dL Est GFR (CKD-EPI)AfAm >90 (>60 ml/min/1.73 sqM) Est GFR (CKD-EPI)NonAf >90 (>60 ml/min/1.73 sqM) Glucose 212 H (74-99) mg/dL Calcium 9.6 (8.4-10.2) mg/dL Total Bilirubin 0.5 (0.2-1.3) mg/dL AST 20 (17-59) U/L ALT 18 L (21-72) U/L Alkaline Phosphatase 75 (38-126) U/L Total Creatine Kinase 139 (55-170) U/L CK-MB (CK-2) 0.8 (0.0-2.4) ng/mL CK-MB (CK-2) Rel Index 0.6 Troponin I <0.012 (0.000-0.034) ng/mL Total Protein 7.4 (6.3-8.2) g/dL Albumin 4.0 (3.5-5.0) g/dL Blood Type Blood Type Recheck Antibody Screen Spec Expiration Date 05/29/18 05/29/18 Range/Units 21:40 21:40 WBC (3.8-10.6) k/uL RBC (4.30-5.90) m/uL Hgb (13.0-17.5) gm/dL Hct (39.0-53.0) % MCV (80.0-100.0) fL MCH (25.0-35.0) pg MCHC (31.0-37.0) g/dL RDW (11.5-15.5) % Plt Count (150-450) k/uL Neutrophils % % Lymphocytes % % Monocytes % % Eosinophils % % Basophils % % Neutrophils # (1.3-7.7) k/uL Lymphocytes # (1.0-4.8) k/uL Monocytes # (0-1.0) k/uL Eosinophils # (0-0.7) k/uL Basophils # (0-0.2) k/uL PT 9.7 (9.0-12.0) sec INR 1.0 (<1.2) APTT 26.6 (22.0-30.0) sec Sodium (137-145) mmol/L Potassium (3.5-5.1) mmol/L Chloride (98-107) mmol/L Carbon Dioxide (22-30) mmol/L Anion Gap mmol/L BUN (9-20) mg/dL Creatinine (0.66-1.25) mg/dL Est GFR (CKD-EPI)AfAm (>60 ml/min/1.73 sqM) Est GFR (CKD-EPI)NonAf (>60 ml/min/1.73 sqM) Glucose (74-99) mg/dL Calcium (8.4-10.2) mg/dL Total Bilirubin (0.2-1.3) mg/dL AST (17-59) U/L ALT (21-72) U/L Alkaline Phosphatase (38-126) U/L Total Creatine Kinase (55-170) U/L CK-MB (CK-2) (0.0-2.4) ng/mL CK-MB (CK-2) Rel Index Troponin I (0.000-0.034) ng/mL Total Protein (6.3-8.2) g/dL Albumin (3.5-5.0) g/dL Blood Type A Negative Blood Type Recheck No Antibody Screen NEGATIVE Spec Expiration Date 06/01/20182339 Disposition Clinical Impression: Fall, Left hip pain Disposition: HOME SELF-CARE Instructions: Fall Prevention for Older Adults (ED) Is patient prescribed a controlled substance at d/c from ED?: No Referrals: Felipe Phillips MD [Primary Care Provider] - 1-2 days
--- NOTE | 2018-05-29 22:10 | XR ---
EXAMINATION TYPE: XR pelvis AP view DATE OF EXAM: 05/29/2018 COMPARISON: NONE HISTORY: Pain TECHNIQUE: Single view FINDINGS: Pelvic ring is intact. There are bilateral hip prostheses that appear intact.. Sacroiliac j oints are normal. IMPRESSION: No acute abnormality of the pelvis.
--- NOTE | 2018-05-29 22:11 | XR ---
EXAMINATION TYPE: XR Hip Complete LT DATE OF EXAM: 05/29/2018 COMPARISON: 11/30/2016 HISTORY: Pain TECHNIQUE: 2 views FINDINGS: There is left hip prosthesis. Components are in anatomic position. I see no fracture. IMPRESSION: No acute abnormality of the left hip.
--- NOTE | 2018-05-29 22:12 | XR ---
EXAMINATION TYPE: XR chest 1V portable DATE OF EXAM: 05/29/2018 COMPARISON: 08/05/2014 HISTORY: Fall. Pain. TECHNIQUE: Single frontal view of the chest is obtained. FINDINGS: Heart and mediastinum are normal. Lungs are clear. Diaphragm is normal. Bony thorax is int act. IMPRESSION: Normal chest. No change.
[2018-05-29 23:11] LABS: Basophils % (A) 0 %; Eosinophils # (A) 0.1 k/uL (0-0.7); Eosinophils % (A) 1 %; HGB 12.9 gm/dL (13.0-17.5); Lymphocytes # (A) 1.8 k/uL (1.0-4.8); Lymphocytes % (A) 17 %; MCH 28.9 pg (25.0-35.0); MCHC 32.2 g/dL (31.0-37.0); MCV 89.6 fL (80.0-100.0); Mean Platelet Volume 7.9; Monocytes # (A) 0.7 k/uL (0-1.0); Monocytes % (A) 6 %; Neutrophils % (A) 75 %; Platelet Count 358 k/uL (150-450); RBC 4.47 m/uL (4.30-5.90); RDW 15.3 % (11.5-15.5); WBC 10.7 k/uL (3.8-10.6)
[2018-05-29 23:19] LABS: ALT 18 U/L (21-72); AST 20 U/L (17-59); Alkaline Phosphatase 75 U/L (38-126); Anion Gap 11 mmol/L; Blood Urea Nitrogen 9 mg/dL (9-20); Calcium 9.6 mg/dL (8.4-10.2); Carbon Dioxide 26 mmol/L (22-30); Chloride 101 mmol/L (98-107); Glucose 212 mg/dL (74-99); Potassium 4.9 mmol/L (3.5-5.1); Sodium 138 mmol/L (137-145); Total Bilirubin 0.5 mg/dL (0.2-1.3); Total Protein 7.4 g/dL (6.3-8.2)
[2018-05-29 23:24] LABS: Partial Thromboplastin Time 26.6 sec (22.0-30.0); Prothrombin Time 9.7 sec (9.0-12.0)
[2018-05-29 23:34] LABS: Creatine Kinase 139 U/L (55-170)
[2018-05-29 23:47] LABS: Creatine Kinase MB 0.8 ng/mL (0.0-2.4); Troponin I <0.012 ng/mL (0.000-0.034)
[2018-05-30 00:01] VITALS: RESP 18
[2018-05-30] MEDS ORDERED: HYDROcodone/APAP 10-325MG 1 EACH TAB PO ONE (00:14)
[2018-05-30 00:46] VITALS: PULSE 76; TEMP 98
== END 2018-05-30 00:36 | disposition home or self-care (01) ==
LOC: EC 20:45
DX: M25.552 Pain in left hip (principal); E11.65 Type 2 diabetes mellitus with hyperglycemia; J45.909 Unspecified asthma, uncomplicated; E78.5 Hyperlipidemia, unspecified; I10 Essential (primary) hypertension; Z96.643 Presence of artificial hip joint, bilateral; Z98.890 Other specified postprocedural states; Z87.891 Personal history of nicotine dependence; Z79.4 Long term (current) use of insulin; Z79.82 Long term (current) use of aspirin; Z79.899 Other long term (current) drug therapy; W01.0XXA Fall on same level from slipping, tripping and stumbling without subsequent striking against object, initial encounter; Y92.009 Unspecified place in unspecified non-institutional (private) residence as the place of occurrence of the external cause
CPT/HCPCS: 36415; 93005; 86900; 86901; 80053; 82550; 82553; 84484; 85025; 85610; 85730; 86850; 72170; 73502; 71045; 99284; 96374; J2270

== ENCOUNTER 2018-05-30 02:23 | Inpatient (IN) | payer OTHER ==
--- NOTE | 2018-05-30 03:50 | CT ---
EXAMINATION TYPE: CT hip LT wo con DATE OF EXAM: 05/30/2018 COMPARISON: None HISTORY: fall CT DLP: 382.50 mGycm Automated exposure control for dose reduction was used. FINDINGS: Multiple axial sections were obtained from the level of the mid ileum to the mid shaft of the femur w ith no contrast. There is a left hip prosthesis. Prosthesis appears in anatomic position. I see no fracture of the lef t ilium. Left sacroiliac joint is intact. There is nondisplaced oblique fracture of the proximal shaft of the femur at the level of the mid pro sthesis. Fracture line is only 1 mm. Exam is limited by metal artifact. There is no evidence of soft tissue mass. IMPRESSION: NONDISPLACED HAIRLINE FRACTURE OF THE PROXIMAL SHAFT OF THE FEMUR IS OBLIQUELY ORIENTED THROUGH THE F EMUR EXTENDING FROM JUST BELOW THE GREATER TROCHANTER TO THE LOWER END OF THE PROSTHESIS.
--- NOTE | 2018-05-30 04:13 | ED ---
Fall HPI - General Chief Complaint: Fall Stated Complaint: Fall Time Seen by Provider: 05/30/18 02:36 Source: patient Mode of arrival: EMS - History of Present Illness Initial Comments: Boaz Reed is a pleasant 62-year-old gentleman who was evaluated in our emergency department earlier in the day for right hip pain since a mechanical fall on Wednesday. Patient's x-ray was unremarkable and the patient was agreeable to discharge home. Patient reports that as he was getting out of the taxi at his home he fell to the ground. He was unable to stand despite the dedicated driver attempting to help him. At that point EMS was contacted to bring the patient back to the emergency department for reevaluation. Patient reports that he feels cold from being on the ground for 20 minutes but aside from that has no complaints. - Related Data Home Medications Medication Instructions Recorded Confirmed Atorvastatin Calcium [Lipitor] 20 mg PO HS 02/03/14 03/13/18 Insulin Aspart [NovoLOG 20 unit SQ TID-W/MEALS 02/03/14 03/13/18 (formulary)] Insulin Detemir [Levemir] 30 unit SQ HS 02/03/14 03/13/18 metFORMIN HCL [Glucophage] 500 mg PO BID 02/03/14 03/13/18 Lisinopril [Prinivil] 20 mg PO DAILY 08/05/14 03/13/18 Montelukast [Singulair] 10 mg PO HS 08/05/14 03/13/18 Albuterol Sulfate [Proair Hfa] 2 puff INHALATION RT-Q6H PRN 08/18/16 03/13/18 Omalizumab [Xolair] 150 mg SQ Q30D 08/18/16 03/13/18 Aspirin 325 mg PO DAILY 03/13/18 03/13/18 Allergies Allergy/AdvReac Type Severity Reaction Status Date / Time No Known Allergies Allergy Verified 03/13/18 14:29 Review of Systems ROS Statement: Those systems with pertinent positive or pertinent negative responses have been documented in the HPI. ROS Other: All systems not noted in ROS Statement are negative. Past Medical History Past Medical History: Asthma, Diabetes Mellitus, Hyperlipidemia, Hypertension Additional Past Medical History / Comment(s): [place] [employer] [place], chronic hip pain, History of Any Multi-Drug Resistant Organisms: None Reported Past Surgical History: Joint Replacement Additional Past Surgical History / Comment(s): lt hip replacement, right hip replacement Past Anesthesia/Blood Transfusion Reactions: Previous Problems w/ Anesthesia Additional Past Anesthesia/Blood Transfusion Reaction / Comment(s): pt states was unable to receive spinal tap with last surgery d/t arthritis in back received general anesthetic" Past Psychological History: No Psychological Hx Reported Smoking Status: Former smoker Past Alcohol Use History: Occasional Past Drug Use History: Marijuana - Past Family History Mother Family Medical History: No Reported History General Exam - General Exam Comments Initial Comments: Initial Comments: GENERAL: Chronically ill-appearing, appears older than stated age HENT: Normocephalic, Atraumatic. EYES: The sclera were anicteric and conjunctiva were pink and moist. Extraocular movements were intact and pupils were equal round and reactive to light. Eyelids were unremarkable. PULMONARY: Unlabored respirations. CARDIOVASCULAR: There is a regular rate and rhythm without any murmurs gallops or rubs. ABDOMEN: Soft and nontender with normal bowel sounds. SKIN: Skin is pale and dry, areas of depigmentation concerning for vitiligo Bilateral feet with skin changes consistent with a fungal infection NEUROLOGIC: Patient is alert and oriented x3. Cranial nerves II through XII are grossly intact. Motor and sensory are also intact. Normal speech, volume and content. Symmetrical smile. MUSCULOSKELETAL: Decreased range of motion of left hip secondary to pain, no obvious deformity no shortening or rotation of the limb Lower surety is warm and well perfused LYMPHATICS: No significant lymphadenopathy is noted PSYCHIATRIC: Normal psychiatric evaluation. Limitations: no limitations Limitations: no limitations Course Vital Signs 05/30/18 05/30/18 02:30 03:41 Temperature 97.7 F Pulse Rate 99 Respiratory 18 18 Rate Blood Pressure 145/84 O2 Sat by Pulse 95 Oximetry Medical Decision Making - Medical Decision Making Patient was reexamined upon arrival. There is no obvious injury shortening or rotation of the hip however given the persistent pain and inability to bear weight a computed tomography scan was ordered Computed tomography scan does reveal a hairline periprosthetic fracture These results were discussed with orthopedic Associates Dr. Rodriguez who agrees with the plan for admission with a medicine consult Admission orders were placed Disposition Clinical Impression: Periprosthetic hip fracture Disposition: ADMITTED IP TO THIS HOSP Referrals: Felipe Phillips MD [Primary Care Provider] - 1-2 days
[2018-05-30] MEDS ORDERED: NALOXONE 0.4 MG/ML 1 ML VIAL IV PRN (04:39)
[2018-05-30] MEDS ORDERED: ALBUTEROL NEBULIZED 2.5 MG/3 ML INHALATION PRN (04:41)
[2018-05-30] MEDS ORDERED: MORPHINE SULFATE 4 MG/ML SYRINGE IVP STA (05:05)
[2018-05-30 05:34] LABS: Basophils % (A) 0 %; Eosinophils # (A) 0.2 k/uL (0-0.7); Eosinophils % (A) 1 %; HCT 38.3 % (39.0-53.0); HGB 12.3 gm/dL (13.0-17.5); Lymphocytes % (A) 17 %; MCH 28.5 pg (25.0-35.0); MCHC 32.2 g/dL (31.0-37.0); MCV 88.7 fL (80.0-100.0); Mean Platelet Volume 7.4; Monocytes # (A) 0.6 k/uL (0-1.0); Monocytes % (A) 5 %; Neutrophils # (A) 9.2 k/uL (1.3-7.7); Neutrophils % (A) 76 %; Platelet Count 325 k/uL (150-450); RBC 4.32 m/uL (4.30-5.90); RDW 15.1 % (11.5-15.5); WBC 12.1 k/uL (3.8-10.6)
[2018-05-30 05:40] LABS: INR 1.1 (<1.2); Prothrombin Time 10.7 sec (9.0-12.0)
[2018-05-30 05:53] LABS: Anion Gap 10 mmol/L; Blood Urea Nitrogen 8 mg/dL (9-20); Calcium 9.5 mg/dL (8.4-10.2); Carbon Dioxide 26 mmol/L (22-30); Chloride 105 mmol/L (98-107); Glucose 177 mg/dL (74-99); Potassium 4.4 mmol/L (3.5-5.1); Sodium 141 mmol/L (137-145)
[2018-05-30] MEDS: HYDROcodone/APAP 7.5-325MG 1 EACH TAB PO PRN ×3 (12:29→21:49)
[2018-05-30] MEDS: MONTELUKAST 10 MG TAB PO SCH ×2 (12:31→23:44)
[2018-05-30] MEDS: metFORMIN 500 MG TAB PO SCH (12:31)
--- NOTE | 2018-05-30 12:33 | P.CONS ---
History of Present Illness - Reason for Consult Consult date: 05/30/18 Medical management Requesting physician: Kenya Rod - Chief Complaint Hip pain - History of Present Illness This is a 62-year-old male patient of Dr. Phillips. Patient presents to the emergency room with complaints of increased pain to right hip. Patient presented to emergency department early in the day but was charged home. Patient returned due to increase pain and inability to get out of taxi when he returned to home. Patient states he had fallen on hip on Wednesday. Patient does have a history of bilateral hip replacements. Patient states he is most recent hip replacement was in November of this year. Additional medical history includes asthma, diabetes mellitus, hyperlipidemia and hypertension. CT of head completed showing nondisplaced hairline fracture of the proximal shaft of femur is obliquely oriented through the femur extending from just below the greater trochanter to the lower end of the prosthesis. At this time patient complains of left hip. Patient denies chest pain or shortness breath. Denies any nausea vomiting diarrhea. Patient denies any urinary burning or frequency Review of Systems Please refer to HPI otherwise unremarkable Past Medical History Past Medical History: Asthma, Diabetes Mellitus, Hyperlipidemia, Hypertension Additional Past Medical History / Comment(s): [place], chronic hip pain, History of Any Multi-Drug Resistant Organisms: None Reported Past Surgical History: Joint Replacement Additional Past Surgical History / Comment(s): lt hip replacement, right hip replacement Past Anesthesia/Blood Transfusion Reactions: Previous Problems w/ Anesthesia Additional Past Anesthesia/Blood Transfusion Reaction / Comm: pt states was unable to receive spinal tap with last surgery d/t arthritis in back received general anesthetic" Past Psychological History: No Psychological Hx Reported Smoking Status: Former smoker Past Alcohol Use History: Occasional Past Drug Use History: Marijuana - Past Family History Mother Family Medical History: No Reported History Medications and Allergies Home Medications Medication Instructions Recorded Confirmed Type Atorvastatin Calcium [Lipitor] 20 mg PO HS 02/03/14 05/30/18 History Insulin Aspart [NovoLOG 20 unit SQ TID-W/MEALS 02/03/14 05/30/18 History (formulary)] Insulin Detemir [Levemir] 30 unit SQ HS 02/03/14 05/30/18 History metFORMIN HCL [Glucophage] 500 mg PO BID 02/03/14 05/30/18 History Lisinopril [Prinivil] 20 mg PO DAILY 08/05/14 05/30/18 History Montelukast [Singulair] 10 mg PO HS 08/05/14 05/30/18 History Omalizumab [Xolair] 150 mg SQ Q30D 08/18/16 05/30/18 History Allergies Allergy/AdvReac Type Severity Reaction Status Date / Time No Known Allergies Allergy Verified 05/30/18 08:49 Physical Exam Vitals: Vital Signs Temp Pulse Resp BP Pulse Ox 05/30/18 09:18 101 H 18 163/73 97 05/30/18 05:20 100 16 141/89 97 05/30/18 03:41 18 05/30/18 02:30 97.7 F 99 18 145/84 95 Intake and Output 05/29/18 05/30/18 05/30/18 22:59 06:59 14:59 Other: Weight 86.183 kg Head normocephalic Neck supple Lungs clear to auscultation bilaterally no wheezing or crackles Heart regular rate and rhythm S1-S2, no rub or gallop Abdomen is soft nontender nondistended positive bowel sounds no hepatosplenomegaly Extremities no edema Neuro alert and orientated to 3 Results CBC & Chem 7: 05/30/18 05:22 05/30/18 05:22 Labs: Abnormal Lab Results - Last 24 Hours (Table) 05/30/18 05/30/18 Range/Units 05:22 05:22 WBC 12.1 H (3.8-10.6) k/uL Hgb 12.3 L (13.0-17.5) gm/dL Hct 38.3 L (39.0-53.0) % Neutrophils # 9.2 H (1.3-7.7) k/uL BUN 8 L (9-20) mg/dL Creatinine 0.54 L (0.66-1.25) mg/dL Glucose 177 H (74-99) mg/dL Assessment and Plan Assessment: 1. Pain to left hip due to periposthetic hip fracture. CT of the hip completed showing a nondisplaced hairline fracture of the proximal shaft of the femur is obliquely oriented through the femur extending from just below the greater trochanter atenolol. Prosthesis. Awaiting surgical recommendation. 2. History of bilateral hip replacement. Patient states most recently placement to left was in November of this year. 3. History of diabetes mellitus. Home medications resumed 4. History of asthma 5. History of hyperlipidemia 6. History of essential HTN DVT prophylaxis SCD until further surgical recommendation made. GI prophylaxis A.m. labs have been ordered Urinalysis ordered Thank you for this consultation we will continue to follow patient closely throughout stay. Time with Patient: Greater than 30 (Greater than 60% of the total time spent in counseling and coordination of care. I performed an examination of the patient and discussed their management with the Nurse Practitioner. I have reviewed the Nurse Practitioner's notes and agree with the documented findings and plan of care)
[2018-05-30 13:08] LABS: Appearance,Urine Clear (Clear); Bilirubin,Urine Negative (Negative); Blood,Urine Negative (Negative); Color,Urine Yellow; Glucose,Urine (UA) 1+ (Negative); Leukocyte Esterase,Urine Negative (Negative); Nitrite,Urine Negative (Negative); PH, Urine 6.5 (5.0-8.0); Protein,Urine Trace (Negative); Specific Gravity,Urine 1.019 (1.001-1.035)
[2018-05-30 13:24] LABS: Ketones,Urine 2+ (Negative)
[2018-05-30 14:01] LABS: Glucose,Whole Blood 224 mg/dL (75-99)
[2018-05-30] MEDS: INSULIN ASPART 100 UNIT/ML 1 ML 10 ML VIAL SQ SCH ×2 (14:47→18:05)
[2018-05-30] MEDS: LISINOPRIL 20 MG TAB PO SCH (14:47)
[2018-05-30] MEDS: CYCLOBENZAPRINE 5 MG TAB PO PRN (14:47)
[2018-05-30] MEDS: HYDROmorphone 1 MG/ML 1 ML SYRINGE IVP PRN ×3 (16:53→23:57)
[2018-05-30 17:00] LABS: Glucose,Whole Blood 111 mg/dL (75-99)
--- NOTE | 2018-05-30 18:45 | P.HPOR ---
History of Present Illness H&P Date: 05/30/18 Chief Complaint: Left hip pain The patient is a pleasant 62-year-old gentleman who had acute onset of left hip pain since Wednesday when he fell at home from a standing position after he tripped and fell. He denies any loss consciousness. He said he was feeling soreness of his left hip where he is had a hip replacement in the past. He left total hip replacement in November 2016 and a right total hip replacement in February [address] Suleamn reaves off with excessive. He had done quite well with these until Wednesday when he tripped. He says he continue to have pain in the presented to the emergency room on [place] had evaluation and x- rays of his left hip. He says that the x-rays were negative and he was sent home but when he returned home he collapsed again due to the pain is left hip and presented again Wednesday evening. A computed tomography scan was completed and they discovered a hairline only displaced periprosthetic fracture around the stem of his left hip femoral stem. There is no dislocation. He was admitted in this regard. He denies any fevers chills denies any loss consciousness denies any prior problems with his left since his surgery until he fell. Review of Systems As stated per HPI. Denies any changes in bowel bladder function denies any numbness tingling. Denies a problems his right hip. Past Medical History Past Medical History: Asthma, COPD, Diabetes Mellitus, Hearing Disorder / Deafness, Hyperlipidemia, Hypertension, Osteoarthritis (OA), Skin Disorder Additional Past Medical History / Comment(s): IDDM type II, arthritis in multiple joints, psoriasis, vitiligo History of Any Multi-Drug Resistant Organisms: None Reported Past Surgical History: Joint Replacement Additional Past Surgical History / Comment(s): Bilateral hip replacements Past Anesthesia/Blood Transfusion Reactions: Previous Problems w/ Anesthesia Additional Past Anesthesia/Blood Transfusion Reaction / Comment(s): pt states was unable to receive spinal tap with last surgery d/t arthritis in back, received general anesthetic" Smoking Status: Former smoker - Past Family History Mother Family Medical History: Eye Disorder, Hearing Disorder / Deafness Additional Family Medical History / Comment(s): Father is 90yrs old. He has glaucoma and is sitka. Medications and Allergies Home Medications Medication Instructions Recorded Confirmed Type Atorvastatin Calcium [Lipitor] 20 mg PO HS 02/03/14 05/30/18 History Insulin Aspart [NovoLOG 20 unit SQ TID-W/MEALS 02/03/14 05/30/18 History (formulary)] Insulin Detemir [Levemir] 30 unit SQ HS 02/03/14 05/30/18 History metFORMIN HCL [Glucophage] 500 mg PO BID 02/03/14 05/30/18 History Lisinopril [Prinivil] 20 mg PO DAILY 08/05/14 05/30/18 History Montelukast [Singulair] 10 mg PO HS 08/05/14 05/30/18 History Omalizumab [Xolair] 150 mg SQ Q30D 08/18/16 05/30/18 History Allergies Allergy/AdvReac Type Severity Reaction Status Date / Time No Known Allergies Allergy Verified 05/30/18 08:49 Physical Examination Osteopathic Statement: *. No significant issues noted on an osteopathic structural exam other than those noted in the History and Physical/Consult. - Hip left Tenderness with palpation: other (At his left lower extremity he has sustained dorsal flexion plantar flexion and EHL intact. Thigh and calf soft. He does have tenderness around his left proximal thigh. There is no open wounds lacerations or abrasions. Incisions well-healed. He has pain with any motion of his left hip. His right lower extremity has full active and passive range motion segment soft nontender his upper extremity full active passive range of motion neck and back nontender palpation range motion) Results - Labs Labs: Abnormal Lab Results - Last 24 Hours (Table) 05/30/18 05/30/18 05/30/18 Range/Units 05:22 05:22 12:40 WBC 12.1 H (3.8-10.6) k/uL Hgb 12.3 L (13.0-17.5) gm/dL Hct 38.3 L (39.0-53.0) % Neutrophils # 9.2 H (1.3-7.7) k/uL BUN 8 L (9-20) mg/dL Creatinine 0.54 L (0.66-1.25) mg/dL Glucose 177 H (74-99) mg/dL POC Glucose (mg/dL) (75-99) mg/dL Urine Protein Trace H (Negative) Urine Glucose (UA) 1+ H (Negative) Urine Ketones 2+ H (Negative) 05/30/18 05/30/18 Range/Units 13:59 16:57 WBC (3.8-10.6) k/uL Hgb (13.0-17.5) gm/dL Hct (39.0-53.0) % Neutrophils # (1.3-7.7) k/uL BUN (9-20) mg/dL Creatinine (0.66-1.25) mg/dL Glucose (74-99) mg/dL POC Glucose (mg/dL) 224 H 111 H (75-99) mg/dL Urine Protein (Negative) Urine Glucose (UA) (Negative) Urine Ketones (Negative) H & H 05/30/18 Range/Units 05:22 Hgb 12.3 L (13.0-17.5) gm/dL Hct 38.3 L (39.0-53.0) % Coagulation 05/30/18 Range/Units 05:22 INR 1.1 (<1.2) Result Diagrams: 05/30/18 05:22 05/30/18 05:22 - Diagnostic results Hip x-ray: report reviewed, image reviewed Hip MRI: report reviewed Hip CT: report reviewed, image reviewed (X-rays and computed tomography scan of the left hip are reviewed. The prostheses at the left hip appears to be well fixed and stable. There is evidence of fracture line extended from the inferior aspect of the greater trochanter laterally to the medial aspect cortex approximately 2 inches proximal to the tip of the femoral stem. The acetabulum appears to be well aligned and stable. There is no dislocation. The right hip does not show any evidence of fracture-dislocation.) Assessment and Plan Assessment: Left hip periprosthetic fracture, traumatic fall with history of left total hip arthroplasty a year and half ago Left hip pain The patient is having inability to mobilize and leg due to the pain in his left hip. The fracture appears to be well aligned and the femoral stem extends beyond the fracture line in stable position. There does not seem to be significant motion at the fracture site itself and the fracture has potential to heal in its current position stabilized by the femoral stem itself. The stem does not appear to be obviously loose over the fracture certainly this needs to be a consideration. At this point we will make patient nonweightbearing have physical therapy see him to see if he is able to mobilize and remain nonweightbearing on left lower extremity. We will have him evaluated with Dr. Suleman beltran, my partner who performed the surgery for further evaluation and consideration of continued treatment. I discussed this with the patient and the hospital staff. I answered all questions.
[2018-05-30 21:48] LABS: Glucose,Whole Blood 54 mg/dL (75-99)
[2018-05-30 22:08] LABS: Glucose,Whole Blood 79 mg/dL (75-99)
[2018-05-30] MEDS: ATORVASTATIN 20 MG TAB PO SCH (23:44)
[2018-05-30] MEDS: INSULIN DETEMIR 100 UNIT/ML 10 ML VIAL SQ SCH (23:45)
[2018-05-30 23:58] LABS: Glucose,Whole Blood 231 mg/dL (75-99)
[2018-05-31] MEDS: INSULIN DETEMIR 100 UNIT/ML 10 ML VIAL SQ SCH ×2 (02:09→22:41)
[2018-05-31 02:11] LABS: Glucose,Whole Blood 212 mg/dL (75-99)
[2018-05-31] MEDS: CYCLOBENZAPRINE 5 MG TAB PO PRN ×2 (02:13→22:35)
[2018-05-31] MEDS: HYDROcodone/APAP 7.5-325MG 1 EACH TAB PO PRN ×4 (03:35→22:35)
[2018-05-31] MEDS: HYDROmorphone 1 MG/ML 1 ML SYRINGE IVP PRN ×6 (04:38→21:24)
[2018-05-31 07:49] LABS: Glucose,Whole Blood 194 mg/dL (75-99)
[2018-05-31] MEDS: LISINOPRIL 20 MG TAB PO SCH (08:00)
[2018-05-31] MEDS: metFORMIN 500 MG TAB PO SCH ×2 (08:00→18:11)
[2018-05-31] MEDS: INSULIN ASPART 100 UNIT/ML 1 ML 10 ML VIAL SQ SCH ×3 (08:00→18:11)
[2018-05-31] MEDS: FAMOTIDINE 20 MG TAB PO SCH (08:00)
[2018-05-31 09:25] LABS: Glucose,Whole Blood 196 mg/dL (75-99)
--- NOTE | 2018-05-31 11:07 | P.PN ---
Subjective Progress Note Date: 05/31/18 This is a 62-year-old male patient of Dr. Phillips. Patient presents to the emergency room with complaints of increased pain to right hip. Patient presented to emergency department early in the day but was charged home. Patient returned due to increase pain and inability to get out of taxi when he returned to home. Patient states he had fallen on hip on Wednesday. Patient does have a history of bilateral hip replacements. Patient states he is most recent hip replacement was in November of this year. Additional medical history includes asthma, diabetes mellitus, hyperlipidemia and hypertension. CT of head completed showing nondisplaced hairline fracture of the proximal shaft of femur is obliquely oriented through the femur extending from just below the greater trochanter to the lower end of the prosthesis. At this time patient complains of left hip. Patient denies chest pain or shortness breath. Denies any nausea vomiting diarrhea. Patient denies any urinary burning or frequency On 05/31/2018 patient is alert and oriented. Patient is currently working with physical therapy. This time patient denies chest pain or shortness breath. Patient denies nausea vomiting or diarrhea. Patient denies any urinary burning or frequency. Social work is essentially consulted for discharge planning. Patient may need rehab upon discharge. Objective - Vital Signs Vital signs: Vital Signs Temp 97.5 F L 05/31/18 07:00 Pulse 87 05/31/18 07:00 Resp 18 05/31/18 07:00 BP 143/79 05/31/18 07:00 Pulse Ox 98 05/31/18 07:00 Intake & Output 05/30/18 05/31/18 05/31/18 18:59 06:59 18:59 Intake Total 375 Balance 375 Intake: Oral 375 Other: Voiding Method Urinal # Voids 1 - Exam Head normocephalic Neck supple Lungs clear to auscultation bilaterally no wheezing or crackles Heart regular rate and rhythm S1-S2, no rub or gallop Abdomen is soft nontender nondistended positive bowel sounds no hepatosplenomegaly Extremities no edema Neuro alert and orientated to 3 - Labs CBC & Chem 7: 05/30/18 05:22 05/30/18 05:22 Labs: Abnormal Lab Results - Last 24 Hours (Table) 05/30/18 05/30/18 05/30/18 Range/Units 12:40 13:59 16:57 POC Glucose (mg/dL) 224 H 111 H (75-99) mg/dL Urine Protein Trace H (Negative) Urine Glucose (UA) 1+ H (Negative) Urine Ketones 2+ H (Negative) 05/30/18 05/30/18 05/31/18 Range/Units 21:40 23:48 02:08 POC Glucose (mg/dL) 54 L 231 H 212 H (75-99) mg/dL Urine Protein (Negative) Urine Glucose (UA) (Negative) Urine Ketones (Negative) 05/31/18 05/31/18 Range/Units 07:39 08:59 POC Glucose (mg/dL) 194 H 196 H (75-99) mg/dL Urine Protein (Negative) Urine Glucose (UA) (Negative) Urine Ketones (Negative) Assessment and Plan Assessment: 1. Pain to left hip due to periposthetic hip fracture. CT of the hip completed showing a nondisplaced hairline fracture of the proximal shaft of the femur is obliquely oriented through the femur extending from just below the greater trochanter atenolol. Prosthesis. Per orthopedic services patient will be maintained nonweightbearing and receive physical therapy 2. History of bilateral hip replacement. Patient states most recently placement to left was in November of this year. 3. History of diabetes mellitus. Home medications resumed 4. History of asthma 5. History of hyperlipidemia 6. History of essential HTN DVT prophylaxis heparin GI prophylaxis A.m. labs have been ordered I performed an examination of the patient and discussed their management with the Nurse Practitioner. I have reviewed the Nurse Practitioner's notes and agree with the documented findings and plan of care Thank you for this consultation we will continue to follow patient closely throughout stay.
[2018-05-31 11:12] LABS: Basophils % (A) 0 %; Eosinophils # (A) 0.2 k/uL (0-0.7); Eosinophils % (A) 2 %; HCT 38.4 % (39.0-53.0); HGB 12.1 gm/dL (13.0-17.5); Hypochromasia Slight; Lymphocytes # (A) 2.4 k/uL (1.0-4.8); Lymphocytes % (A) 26 %; MCHC 31.6 g/dL (31.0-37.0); MCV 91.7 fL (80.0-100.0); Mean Platelet Volume 7.8; Monocytes # (A) 0.7 k/uL (0-1.0); Monocytes % (A) 8 %; Neutrophils # (A) 5.5 k/uL (1.3-7.7); Neutrophils % (A) 62 %; Platelet Count 333 k/uL (150-450); RBC 4.18 m/uL (4.30-5.90); RDW 15.1 % (11.5-15.5); WBC 8.9 k/uL (3.8-10.6)
[2018-05-31 11:29] LABS: ALT 12 U/L (21-72); AST 17 U/L (17-59); Albumin 3.8 g/dL (3.5-5.0); Alkaline Phosphatase 56 U/L (38-126); Anion Gap 9 mmol/L; Blood Urea Nitrogen 9 mg/dL (9-20); Calcium 9.6 mg/dL (8.4-10.2); Carbon Dioxide 28 mmol/L (22-30); Chloride 105 mmol/L (98-107); Glucose 82 mg/dL (74-99); Sodium 142 mmol/L (137-145); Total Bilirubin 0.6 mg/dL (0.2-1.3); Total Protein 7.1 g/dL (6.3-8.2)
[2018-05-31 12:15] VITALS: BMI 27.2
--- NOTE | 2018-05-31 12:17 | P.PN ---
Subjective Progress Note Date: 05/31/18 This is a 62-year-old male who is admitted for left hip pain after fall. Patient was found to have a periprosthetic fracture of the left femur by CT scan. Today patient states that he is still having pain today. Patient states that he was able to walk with a walker and stay nonweightbearing with physical therapy today. Patient denies any new complaints today. Patient denies any fever/chills, numbness, weakness, tingling, abdominal pain, shortness of breath or chest pain. Objective - Vital Signs Vital signs: Vital Signs Temp 97.5 F L 05/31/18 07:00 Pulse 87 05/31/18 07:00 Resp 18 05/31/18 07:00 BP 143/79 05/31/18 07:00 Pulse Ox 98 05/31/18 07:00 Intake & Output 05/30/18 05/31/18 05/31/18 18:59 06:59 18:59 Intake Total 375 Balance 375 Intake: Oral 375 Other: Voiding Method Urinal # Voids 1 - Exam On exam patient is resting comfortably in bed in no acute distress. Patient is alert and oriented 3. Patient has pain in the left hip with range of motion of the left lower extremity. Calf is soft and nontender to palpation. Patient has full foot and ankle motion without pain or difficulty. Sensation is intact. Skin is intact. Neurovascular status post circulatory status are intact. - Labs CBC & Chem 7: 05/31/18 10:39 05/31/18 10:39 Labs: Abnormal Lab Results - Last 24 Hours (Table) 05/30/18 05/30/18 05/30/18 Range/Units 12:40 13:59 16:57 RBC (4.30-5.90) m/uL Hgb (13.0-17.5) gm/dL Hct (39.0-53.0) % Creatinine (0.66-1.25) mg/dL POC Glucose (mg/dL) 224 H 111 H (75-99) mg/dL ALT (21-72) U/L Urine Protein Trace H (Negative) Urine Glucose (UA) 1+ H (Negative) Urine Ketones 2+ H (Negative) 05/30/18 05/30/18 05/31/18 Range/Units 21:40 23:48 02:08 RBC (4.30-5.90) m/uL Hgb (13.0-17.5) gm/dL Hct (39.0-53.0) % Creatinine (0.66-1.25) mg/dL POC Glucose (mg/dL) 54 L 231 H 212 H (75-99) mg/dL ALT (21-72) U/L Urine Protein (Negative) Urine Glucose (UA) (Negative) Urine Ketones (Negative) 05/31/18 05/31/18 05/31/18 Range/Units 07:39 08:59 10:39 RBC 4.18 L (4.30-5.90) m/uL Hgb 12.1 L (13.0-17.5) gm/dL Hct 38.4 L (39.0-53.0) % Creatinine (0.66-1.25) mg/dL POC Glucose (mg/dL) 194 H 196 H (75-99) mg/dL ALT (21-72) U/L Urine Protein (Negative) Urine Glucose (UA) (Negative) Urine Ketones (Negative) 05/31/18 Range/Units 10:39 RBC (4.30-5.90) m/uL Hgb (13.0-17.5) gm/dL Hct (39.0-53.0) % Creatinine 0.62 L (0.66-1.25) mg/dL POC Glucose (mg/dL) (75-99) mg/dL ALT 12 L (21-72) U/L Urine Protein (Negative) Urine Glucose (UA) (Negative) Urine Ketones (Negative) Assessment and Plan Assessment: Asthma Diabetes mellitus Hyperlipidemia Hypertension (1) Periprosthetic hip fracture Current Visit: Yes Status: Acute Code(s): M97.8XXA - PERIPROSTH FRACTURE AROUND OTHER INTERNAL PROSTH JOINT, INIT; Z96.649 - PRESENCE OF UNSPECIFIED ARTIFICIAL HIP JOINT SNOMED Code(s): 881933467 (2) Fall Current Visit: No Status: Inactive Code(s): W19.XXXA - UNSPECIFIED FALL, INITIAL ENCOUNTER SNOMED Code(s): 6930962 (3) Left hip pain Current Visit: No Status: Inactive Code(s): M25.552 - PAIN IN LEFT HIP SNOMED Code(s): 13980120 Plan: 1. Nonweightbearing to the left lower extremity. 2. Continue pain control and physical therapy. 3. Appreciate input from medicine. 4. No surgical intervention planned. We will repeat x-rays in one week as an outpatient. Discharge planning.
[2018-05-31 12:30] LABS: Glucose,Whole Blood 48 mg/dL (75-99)
[2018-05-31 12:30] LABS: Glucose,Whole Blood 75 mg/dL (75-99)
[2018-05-31 17:18] LABS: Glucose,Whole Blood 213 mg/dL (75-99)
[2018-05-31 21:01] LABS: Glucose,Whole Blood 156 mg/dL (75-99)
[2018-05-31] MEDS: MONTELUKAST 10 MG TAB PO SCH (21:23)
[2018-05-31] MEDS: ATORVASTATIN 20 MG TAB PO SCH (21:23)
[2018-05-31] MEDS: HEPARIN SODIUM,PORCINE 5,000 UNIT/ML 1 ML VIAL SQ SCH (21:38)
[2018-06-01] MEDS: HYDROmorphone 1 MG/ML 1 ML SYRINGE IVP PRN ×5 (01:27→21:11)
[2018-06-01 03:03] LABS: Glucose,Whole Blood 186 mg/dL (75-99)
[2018-06-01] MEDS: HYDROcodone/APAP 7.5-325MG 1 EACH TAB PO PRN ×2 (04:36→13:24)
[2018-06-01 06:50] LABS: Glucose,Whole Blood 141 mg/dL (75-99)
[2018-06-01] MEDS: LISINOPRIL 20 MG TAB PO SCH (07:47)
[2018-06-01] MEDS: HEPARIN SODIUM,PORCINE 5,000 UNIT/ML 1 ML VIAL SQ SCH ×2 (07:48→21:12)
[2018-06-01] MEDS: FAMOTIDINE 20 MG TAB PO SCH (07:48)
[2018-06-01] MEDS: metFORMIN 500 MG TAB PO SCH ×2 (07:48→17:34)
[2018-06-01] MEDS: INSULIN ASPART 100 UNIT/ML 1 ML 10 ML VIAL SQ SCH ×3 (07:48→18:18)
[2018-06-01 09:00] LABS: Glucose,Whole Blood 197 mg/dL (75-99)
--- NOTE | 2018-06-01 09:51 | P.DS ---
Providers Date of admission: 05/30/18 04:39 Expected date of discharge: 06/01/18 Attending physician: Suleman Castillo Consults: 05/30/18 04:40 Consult Physician Routine Consulting Provider: Catherine Barry Consult Reason/Comments: medical management, ortho pt Do you want consulting provider notified?: Yes, Notify in am Primary care physician: Felipe Bakeroa - Discharge Diagnosis(es) (1) Periprosthetic hip fracture Current Visit: Yes Status: Acute (2) Fall Current Visit: No Status: Inactive (3) Left hip pain Current Visit: No Status: Inactive Hospital Course: This is a 62-year-old male who sustained an injury to the left hip after falling on 05/27/2018 and again on 05/30/2018. A CT of the left hip from the emergency room on 05/30/2018 revealed a periprosthetic fracture of the left hip and patient was then admitted on 05/30/[address] was reviewed and fracture is stable. Patient is being treated nonoperatively. During this admission the patient has been working with physical therapy and staying nonweightbearing to the left lower extremity. Labs and vital signs are stable on day of discharge. On day of discharge patient has pain with range of motion of the left hip, but is able to flex and extend the left hip. Compartments are soft. There is tenderness to palpation over the anterior aspect of the mid-thigh. There is no erythema. There is minimal soft tissue swelling to the hip and thigh. Patient has full foot and ankle motion without difficulty or pain. Sensation is intact. Neurovascular status to the left lower extremity is intact. Patient is discharged to rehab in good condition. Please see med rec for accurate list of home medications. Plan - Discharge Summary Discharge Rx Participant: No New Discharge Prescriptions: New Aspirin 325 mg PO BID #60 tab HYDROcodone/APAP 7.5-325MG [Amelia 7.5-325] 1 - 2 tab PO Q4-6H PRN #84 tab PRN Reason: Pain Sennosides [Senokot] 1 tab PO BID #60 tablet No Action Insulin Detemir [Levemir] 30 unit SQ HS metFORMIN HCL [Glucophage] 500 mg PO BID Atorvastatin Calcium [Lipitor] 20 mg PO HS Insulin Aspart [NovoLOG (formulary)] 20 unit SQ TID-W/MEALS Lisinopril [Prinivil] 20 mg PO DAILY Montelukast [Singulair] 10 mg PO HS Omalizumab [Xolair] 150 mg SQ Q30D Discharge Medication List Atorvastatin Calcium [Lipitor] 20 mg PO HS 02/03/14 [History] Insulin Aspart [NovoLOG (formulary)] 20 unit SQ TID-W/MEALS 02/03/14 [History] Insulin Detemir [Levemir] 30 unit SQ HS 02/03/14 [History] metFORMIN HCL [Glucophage] 500 mg PO BID 02/03/14 [History] Lisinopril [Prinivil] 20 mg PO DAILY 08/05/14 [History] Montelukast [Singulair] 10 mg PO HS 08/05/14 [History] Omalizumab [Xolair] 150 mg SQ Q30D 08/18/16 [History] Aspirin 325 mg PO BID #60 tab 06/01/18 [Rx] HYDROcodone/APAP 7.5-325MG [Amelia 7.5-325] 1 - 2 tab PO Q4-6H PRN #84 tab [Rx] Sennosides [Senokot] 1 tab PO BID #60 tablet 06/01/18 [Rx] Follow up Appointment(s)/Referral(s): Felipe Phillips MD [Primary Care Provider] - 1-2 days Suleman Castillo DO [Doctor of Osteopathic Medicine] - 1 Week Activity/Diet/Wound Care/Special Instructions: Strictly nonweightbearing to the left lower extremity using a walker. Physical therapy. Rest and ice the left hip. Please take medications as prescribed. Follow-up with [facility] in 1 week and please call with any questions or concerns, Discharge Disposition: TRANSFER TO SNF/ECF
[2018-06-01 11:06] LABS: Basophils % (A) 0 %; Eosinophils # (A) 0.3 k/uL (0-0.7); Eosinophils % (A) 3 %; HCT 40.4 % (39.0-53.0); HGB 12.6 gm/dL (13.0-17.5); Hypochromasia Slight; Lymphocytes # (A) 2.5 k/uL (1.0-4.8); Lymphocytes % (A) 29 %; MCH 28.8 pg (25.0-35.0); MCHC 31.1 g/dL (31.0-37.0); MCV 92.7 fL (80.0-100.0); Monocytes # (A) 0.6 k/uL (0-1.0); Monocytes % (A) 7 %; Neutrophils # (A) 5.3 k/uL (1.3-7.7); Neutrophils % (A) 59 %; Platelet Count 346 k/uL (150-450); RBC 4.36 m/uL (4.30-5.90); RDW 15.4 % (11.5-15.5); WBC 8.9 k/uL (3.8-10.6)
[2018-06-01 11:17] LABS: Glucose,Whole Blood 117 mg/dL (75-99)
[2018-06-01 11:24] LABS: ALT 19 U/L (21-72); AST 23 U/L (17-59); Alkaline Phosphatase 54 U/L (38-126); Anion Gap 12 mmol/L; Blood Urea Nitrogen 10 mg/dL (9-20); Calcium 9.6 mg/dL (8.4-10.2); Carbon Dioxide 23 mmol/L (22-30); Chloride 105 mmol/L (98-107); Glucose 126 mg/dL (74-99); Potassium 4.3 mmol/L (3.5-5.1); Sodium 140 mmol/L (137-145); Total Bilirubin 0.6 mg/dL (0.2-1.3); Total Protein 7.4 g/dL (6.3-8.2)
--- NOTE | 2018-06-01 11:37 | P.PN ---
Subjective Progress Note Date: 06/01/18 This is a 62-year-old male patient of Dr. Phillips. Patient presents to the emergency room with complaints of increased pain to right hip. Patient presented to emergency department early in the day but was charged home. Patient returned due to increase pain and inability to get out of taxi when he returned to home. Patient states he had fallen on hip on Wednesday. Patient does have a history of bilateral hip replacements. Patient states he is most recent hip replacement was in November of this year. Additional medical history includes asthma, diabetes mellitus, hyperlipidemia and hypertension. CT of head completed showing nondisplaced hairline fracture of the proximal shaft of femur is obliquely oriented through the femur extending from just below the greater trochanter to the lower end of the prosthesis. At this time patient complains of left hip. Patient denies chest pain or shortness breath. Denies any nausea vomiting diarrhea. Patient denies any urinary burning or frequency On 05/31/2018 patient is alert and oriented. Patient is currently working with physical therapy. This time patient denies chest pain or shortness breath. Patient denies nausea vomiting or diarrhea. Patient denies any urinary burning or frequency. Social work is essentially consulted for discharge planning. Patient may need rehab upon discharge. On 06/01/2018 patient is alert and oriented 3. Discussed case with orthopedic PA. Anticipate discharge per orthopedics today. Patient stated to designer/writer that he is planning to go home with home health care. Per orthopedic services patient told them that he was planning on ECF. Case management to determine discharge destination. At this time patient denies chest pain or shortness breath. Patient denies nausea vomiting or diarrhea. Patient denies any urinary burning or frequency. Objective - Vital Signs Vital signs: Vital Signs Temp 98.4 F 06/01/18 06:06 Pulse 82 06/01/18 06:06 Resp 18 06/01/18 06:06 BP 139/82 06/01/18 06:06 Pulse Ox 96 06/01/18 06:06 Intake & Output 05/31/18 06/01/18 06/01/18 18:59 06:59 18:59 Output Total 500 600 Balance -500 -600 Weight 86.183 kg Output: Urine 500 600 Other: Voiding Method Urinal - Exam Head normocephalic Neck supple Lungs clear to auscultation bilaterally no wheezing or crackles Heart regular rate and rhythm S1-S2, no rub or gallop Abdomen is soft nontender nondistended positive bowel sounds no hepatosplenomegaly Extremities no edema Neuro alert and orientated to 3 - Labs CBC & Chem 7: 06/01/18 10:12 06/01/18 10:12 Labs: Abnormal Lab Results - Last 24 Hours (Table) 05/31/18 05/31/18 05/31/18 Range/Units 11:48 17:10 21:00 Hgb (13.0-17.5) gm/dL Creatinine (0.66-1.25) mg/dL Glucose (74-99) mg/dL POC Glucose (mg/dL) 48 L 213 H 156 H (75-99) mg/dL ALT (21-72) U/L 06/01/18 06/01/18 06/01/18 Range/Units 03:01 06:46 08:56 Hgb (13.0-17.5) gm/dL Creatinine (0.66-1.25) mg/dL Glucose (74-99) mg/dL POC Glucose (mg/dL) 186 H 141 H 197 H (75-99) mg/dL ALT (21-72) U/L 06/01/18 06/01/18 06/01/18 Range/Units 10:12 10:12 11:14 Hgb 12.6 L (13.0-17.5) gm/dL Creatinine 0.57 L (0.66-1.25) mg/dL Glucose 126 H (74-99) mg/dL POC Glucose (mg/dL) 117 H (75-99) mg/dL ALT 19 L (21-72) U/L Assessment and Plan Assessment: 1. Pain to left hip due to periposthetic hip fracture. CT of the hip completed showing a nondisplaced hairline fracture of the proximal shaft of the femur is obliquely oriented through the femur extending from just below the greater trochanter atenolol. Prosthesis. Per orthopedic services patient will be maintained nonweightbearing and receive physical therapy. Patient will be discharged per orthopedic services on aspirin twice a day and [place] for pain control. 2. History of bilateral hip replacement. Patient states most recently placement to left was in November of this year. 3. History of diabetes mellitus. Home medications resumed 4. History of asthma 5. History of hyperlipidemia 6. History of essential HTN DVT prophylaxis heparin GI prophylaxis Physical therapy recommending ECF. Patient declined due to family needs at home. I performed an examination of the patient and discussed their management with the Nurse Practitioner. I have reviewed the Nurse Practitioner's notes and agree with the documented findings and plan of care Thank you for this consultation we will continue to follow patient closely throughout stay.
[2018-06-01 17:20] LABS: Glucose,Whole Blood 209 mg/dL (75-99)
[2018-06-01] MEDS: INSULIN DETEMIR 100 UNIT/ML 10 ML VIAL SQ SCH (21:12)
[2018-06-01] MEDS: ATORVASTATIN 20 MG TAB PO SCH (21:12)
[2018-06-01] MEDS: MONTELUKAST 10 MG TAB PO SCH (21:12)
[2018-06-01 21:23] LABS: Glucose,Whole Blood 119 mg/dL (75-99)
[2018-06-02] MEDS: HYDROmorphone 1 MG/ML 1 ML SYRINGE IVP PRN (01:15)
[2018-06-02] MEDS: HYDROcodone/APAP 7.5-325MG 1 EACH TAB PO PRN ×2 (03:47→09:22)
[2018-06-02 06:27] VITALS: BP 122/70; PULSE 86; RESP 16; TEMP 98.8
[2018-06-02 07:11] LABS: Glucose,Whole Blood 157 mg/dL (75-99)
[2018-06-02 07:59] LABS: Basophils % (A) 0 %; Eosinophils # (A) 0.3 k/uL (0-0.7); Eosinophils % (A) 3 %; HCT 38.2 % (39.0-53.0); HGB 12.3 gm/dL (13.0-17.5); Lymphocytes # (A) 2.9 k/uL (1.0-4.8); Lymphocytes % (A) 27 %; MCH 29.2 pg (25.0-35.0); MCHC 32.2 g/dL (31.0-37.0); MCV 90.7 fL (80.0-100.0); Mean Platelet Volume 7.4; Monocytes # (A) 0.6 k/uL (0-1.0); Monocytes % (A) 5 %; Neutrophils # (A) 6.7 k/uL (1.3-7.7); Neutrophils % (A) 62 %; Platelet Count 357 k/uL (150-450); RBC 4.21 m/uL (4.30-5.90); RDW 15.5 % (11.5-15.5); WBC 10.7 k/uL (3.8-10.6)
[2018-06-02 08:42] LABS: ALT 27 U/L (21-72); AST 22 U/L (17-59); Albumin 4.1 g/dL (3.5-5.0); Alkaline Phosphatase 70 U/L (38-126); Anion Gap 11 mmol/L; Blood Urea Nitrogen 12 mg/dL (9-20); Calcium 9.7 mg/dL (8.4-10.2); Carbon Dioxide 24 mmol/L (22-30); Chloride 104 mmol/L (98-107); Glucose 181 mg/dL (74-99); Potassium 4.5 mmol/L (3.5-5.1); Sodium 139 mmol/L (137-145); Total Bilirubin 0.7 mg/dL (0.2-1.3); Total Protein 7.6 g/dL (6.3-8.2)
[2018-06-02] MEDS: metFORMIN 500 MG TAB PO SCH (09:23)
[2018-06-02] MEDS: INSULIN ASPART 100 UNIT/ML 1 ML 10 ML VIAL SQ SCH ×2 (09:23→12:44)
[2018-06-02] MEDS: LISINOPRIL 20 MG TAB PO SCH (09:23)
[2018-06-02] MEDS: HEPARIN SODIUM,PORCINE 5,000 UNIT/ML 1 ML VIAL SQ SCH (09:23)
[2018-06-02] MEDS: FAMOTIDINE 20 MG TAB PO SCH (09:23)
--- NOTE | 2018-06-02 11:15 | P.PN ---
Subjective Progress Note Date: 06/02/18 This is a 62-year-old male patient of Dr. Phillips. Patient presents to the emergency room with complaints of increased pain to right hip. Patient presented to emergency department early in the day but was charged home. Patient returned due to increase pain and inability to get out of taxi when he returned to home. Patient states he had fallen on hip on Wednesday. Patient does have a history of bilateral hip replacements. Patient states he is most recent hip replacement was in November of this year. Additional medical history includes asthma, diabetes mellitus, hyperlipidemia and hypertension. CT of head completed showing nondisplaced hairline fracture of the proximal shaft of femur is obliquely oriented through the femur extending from just below the greater trochanter to the lower end of the prosthesis. At this time patient complains of left hip. Patient denies chest pain or shortness breath. Denies any nausea vomiting diarrhea. Patient denies any urinary burning or frequency On 05/31/2018 patient is alert and oriented. Patient is currently working with physical therapy. This time patient denies chest pain or shortness breath. Patient denies nausea vomiting or diarrhea. Patient denies any urinary burning or frequency. Social work is essentially consulted for discharge planning. Patient may need rehab upon discharge. On 06/01/2018 patient is alert and oriented 3. Discussed case with orthopedic PA. Anticipate discharge per orthopedics today. Patient stated to song writer that he is planning to go home with home health care. Per orthopedic services patient told them that he was planning on ECF. Case management to determine discharge destination. At this time patient denies chest pain or shortness breath. Patient denies nausea vomiting or diarrhea. Patient denies any urinary burning or frequency. On 03/02/2018 patient remains alert and oriented 3. Patient was discharged per orthopedic services yesterday. Patient has gone back and forth between home and rehab multiple times. At this time patient states he is planning to go home. Rehab encouraged the patient declined At this point patient states he is able to get up and walk with walker. Patient denies chest pain or shortness of breath. Patient denies nausea vomiting or diarrhea. Patient denies any urinary burning or frequency. Objective - Vital Signs Vital signs: Vital Signs Temp 98.8 F 06/02/18 05:55 Pulse 86 06/02/18 05:55 Resp 16 06/02/18 05:55 BP 122/70 06/02/18 05:55 Pulse Ox 99 06/02/18 05:55 Intake & Output 06/01/18 06/02/18 06/02/18 18:59 06:59 18:59 Intake Total 1200 600 Balance 1200 600 Intake: Oral 1200 600 Other: # Voids 1 1 # Bowel Movements 1 - Exam Head normocephalic Neck supple Lungs clear to auscultation bilaterally no wheezing or crackles Heart regular rate and rhythm S1-S2, no rub or gallop Abdomen is soft nontender nondistended positive bowel sounds no hepatosplenomegaly Extremities no edema Neuro alert and orientated to 3 - Labs CBC & Chem 7: 06/02/18 07:45 06/02/18 07:45 Labs: Abnormal Lab Results - Last 24 Hours (Table) 06/01/18 06/01/18 06/01/18 Range/Units 10:12 10:12 11:14 WBC (3.8-10.6) k/uL RBC (4.30-5.90) m/uL Hgb 12.6 L (13.0-17.5) gm/dL Hct (39.0-53.0) % Creatinine 0.57 L (0.66-1.25) mg/dL Glucose 126 H (74-99) mg/dL POC Glucose (mg/dL) 117 H (75-99) mg/dL ALT 19 L (21-72) U/L 06/01/18 06/01/18 06/02/18 Range/Units 16:49 21:14 07:00 WBC (3.8-10.6) k/uL RBC (4.30-5.90) m/uL Hgb (13.0-17.5) gm/dL Hct (39.0-53.0) % Creatinine (0.66-1.25) mg/dL Glucose (74-99) mg/dL POC Glucose (mg/dL) 209 H 119 H 157 H (75-99) mg/dL ALT (21-72) U/L 06/02/18 06/02/18 Range/Units 07:45 07:45 WBC 10.7 H (3.8-10.6) k/uL RBC 4.21 L (4.30-5.90) m/uL Hgb 12.3 L (13.0-17.5) gm/dL Hct 38.2 L (39.0-53.0) % Creatinine 0.55 L (0.66-1.25) mg/dL Glucose 181 H (74-99) mg/dL POC Glucose (mg/dL) (75-99) mg/dL ALT (21-72) U/L Assessment and Plan Assessment: 1. Pain to left hip due to periposthetic hip fracture. CT of the hip completed showing a nondisplaced hairline fracture of the proximal shaft of the femur is obliquely oriented through the femur extending from just below the greater trochanter atenolol. Prosthesis. Per orthopedic services patient will be maintained nonweightbearing and receive physical therapy. Patient will be discharged per orthopedic services on aspirin twice a day and [place] for pain control. 2. History of bilateral hip replacement. Patient states most recently placement to left was in November of this year. 3. History of diabetes mellitus. Home medications resumed 4. History of asthma 5. History of hyperlipidemia 6. History of essential HTN DVT prophylaxis heparin GI prophylaxis Physical therapy recommending ECF. Patient declined due to family needs at home. I performed an examination of the patient and discussed their management with the Nurse Practitioner. I have reviewed the Nurse Practitioner's notes and agree with the documented findings and plan of care Thank you for this consultation we will continue to follow patient closely throughout stay. Patient complains be discharged home today. Patient declined rehab at this time
[2018-06-02 11:37] LABS: Glucose,Whole Blood 112 mg/dL (75-99)
== END 2018-06-02 13:21 | disposition home or self-care (01) | DRG 561 ==
LOC: EC 02:23 → 4MS4W 04:39
PROVIDERS: ADMIT Orthopaedic Surgery; ATTEND Orthopaedic Surgery
DX: M97.02XA Periprosthetic fracture around internal prosthetic left hip joint, initial encounter (principal); E11.9 Type 2 diabetes mellitus without complications; J44.9 Chronic obstructive pulmonary disease, unspecified; H91.90 Unspecified hearing loss, unspecified ear; E78.5 Hyperlipidemia, unspecified; L80 Vitiligo; L40.9 Psoriasis, unspecified; I10 Essential (primary) hypertension; M19.91 Primary osteoarthritis, unspecified site; Z79.4 Long term (current) use of insulin; Z79.82 Long term (current) use of aspirin; Z79.1 Long term (current) use of non-steroidal anti-inflammatories (NSAID); Z79.899 Other long term (current) drug therapy; Z96.643 Presence of artificial hip joint, bilateral; Z87.891 Personal history of nicotine dependence; W01.0XXA Fall on same level from slipping, tripping and stumbling without subsequent striking against object, initial encounter; Y92.009 Unspecified place in unspecified non-institutional (private) residence as the place of occurrence of the external cause; Z83.511 Family history of glaucoma; Z82.2 Family history of deafness and hearing loss
CPT/HCPCS: 80048; 80053; 81003; 85025; 85610; 96374; 99285

== ENCOUNTER 2018-10-17 00:18 | Emergency (ER) | payer OTHER ==
[2018-10-17] MEDS ORDERED: MORPHINE SULFATE 4 MG/ML SYRINGE IM STA (00:54)
--- NOTE | 2018-10-17 00:57 | ED ---
General Adult HPI - General Source: patient, RN notes reviewed Mode of arrival: ambulatory Limitations: no limitations <Matt Hennessy P - Last Filed: 10/17/18 03:02> <Kenya Rod P - Last Filed: 10/17/18 05:42> - General Chief complaint: Fall Stated complaint: Fall/ LT Shoulder Pain LT Hip Pain Time Seen by Provider: 10/17/18 00:45 - History of Present Illness Initial comments: 63-year-old male presents to the emergency department for chief complaint of fall. Patient states he was walking outside when he slipped on the ice and fell on his left side. Patient states he was having left hip and left shoulder pain. Patient does have a history of a prosthesis in his left hip. He states he is able to walk on this but it is very difficult and painful. Patient states it is painful to move his left shoulder as well. Patient denies hitting his head. However he has not sure if he is on any blood thinners. No loss of consciousness. No dizziness or lightheadedness preceding this fall. Patient has no other complaints at this time including shortness of breath, chest pain, abdominal pain, nausea or vomiting, headache, or visual changes. (Matt Hennessy) - Related Data Home Medications Medication Instructions Recorded Confirmed Atorvastatin Calcium [Lipitor] 20 mg PO HS 02/03/14 05/30/18 INSULIN ASPART (NovoLOG) [NovoLOG 20 unit SQ TID-W/MEALS 02/03/14 05/30/18 (formulary)] Insulin Detemir (Levemir) [Levemir] 30 unit SQ HS 02/03/14 05/30/18 metFORMIN HCL [Glucophage] 500 mg PO BID 02/03/14 05/30/18 Lisinopril [Prinivil] 20 mg PO DAILY 08/05/14 05/30/18 Montelukast [Singulair] 10 mg PO HS 08/05/14 05/30/18 Omalizumab [Xolair] 150 mg SQ Q30D 08/18/16 05/30/18 Previous Rx's Medication Instructions Recorded Aspirin 325 mg PO BID #60 tab 06/01/18 HYDROcodone/APAP 7.5-325MG [[place] 1 - 2 tab PO Q4-6H PRN #84 tab 06/01/18 7.5-325] Sennosides [Senokot] 1 tab PO BID #60 tablet 06/01/18 Allergies Allergy/AdvReac Type Severity Reaction Status Date / Time No Known Allergies Allergy Verified 10/17/18 00:43 Review of Systems ROS Other: All systems not noted in ROS Statement are negative. <Matt eHnnessy P - Last Filed: 10/17/18 03:02> ROS Other: All systems not noted in ROS Statement are negative. <Kenya Rod P - Last Filed: 10/17/18 05:42> ROS Statement: Those systems with pertinent positive or pertinent negative responses have been documented in the HPI. Past Medical History Past Medical History: Asthma, COPD, Diabetes Mellitus, Hearing Disorder / Deafness, Hyperlipidemia, Hypertension, Osteoarthritis (OA), Skin Disorder Additional Past Medical History / Comment(s): IDDM type II, arthritis in multiple joints, psoriasis, vitiligo History of Any Multi-Drug Resistant Organisms: None Reported Past Surgical History: Joint Replacement Additional Past Surgical History / Comment(s): Bilateral hip replacements Past Anesthesia/Blood Transfusion Reactions: Previous Problems w/ Anesthesia Additional Past Anesthesia/Blood Transfusion Reaction / Comment(s): pt states was unable to receive spinal tap with last surgery d/t arthritis in back, received general anesthetic" Past Psychological History: Anxiety Smoking Status: Former smoker - Past Family History Mother Family Medical History: Eye Disorder, Hearing Disorder / Deafness Additional Family Medical History / Comment(s): Father is 90yrs old. He has glaucoma and is [place]. <Matt Hennessy P - Last Filed: 10/17/18 03:02> General Exam Limitations: no limitations General appearance: alert, in no apparent distress Head exam: Present: atraumatic, normocephalic, normal inspection Eye exam: Present: normal appearance, PERRL, EOMI. Absent: scleral icterus, conjunctival injection, periorbital swelling ENT exam: Present: normal exam, mucous membranes moist Neck exam: Present: normal inspection, full ROM. Absent: tenderness, meningismus, lymphadenopathy Respiratory exam: Present: normal lung sounds bilaterally. Absent: respiratory distress, wheezes, rales, rhonchi, stridor Cardiovascular Exam: Present: regular rate, normal rhythm, normal heart sounds. Absent: bradycardia, tachycardia, irregular rhythm GI/Abdominal exam: Present: soft, normal bowel sounds. Absent: distended, tenderness, guarding, rebound, rigid Neurological exam: Present: alert, oriented X3, CN II-XII intact Psychiatric exam: Present: normal affect, normal mood <Matt Hennessy P - Last Filed: 10/17/18 03:02> <Kenya Rod P - Last Filed: 10/17/18 05:42> - General Exam Comments Initial Comments: Left arm: Able to flex and abduction to the left shoulder about 20. Tenderness generalized to the left lower shoulder. Neurovascular intact in the left upper extremity. Radial pulse 2+. Left leg: Patient is able to flex to about 30. He is limping on the left leg. No contusions noted. Capillary refill is 2 seconds. (Matt Hennessy) Vital Signs 10/17/18 10/17/18 00:36 03:23 Temperature 97.8 F 97 F L Pulse Rate 86 87 Respiratory 16 18 Rate Blood Pressure 174/93 144/74 O2 Sat by Pulse 97 97 Oximetry Medical Decision Making <Matt Hennessy P - Last Filed: 10/17/18 03:02> <Kenya Rod P - Last Filed: 10/17/18 05:42> - Medical Decision Making 63-year-old male presents to the emergency department for a chief complaint of fall. Patient slipped and fell on the ice. Having left hip and left shoulder pain. Neurovascular intact in bilateral extremities. Patient given morphine for pain. Shoulder x-ray shows no acute findings. Hip and pelvis x-ray shows stable bilateral hip prosthesis. However given the patient's. Pain CT was ordered which shows no evidence of acute fracture or dislocation. There is oblique lucency lucency noted but this is less distinct than previous CAT scan. Patient did not believe he hit his head but is not sure if he is on blood thinners. Therefore CT brain was ordered. CT brain shows no acute intracranial abnormality or skull fracture. There is a small fluid level the left maxillary sinus that could relate to sinusitis or occult fracture. Clinically occult fracture is not present. No tenderness to the facial area. No erythema or edema. No evidence of trauma. CT C-spine negative for fracture. On reevaluation patient is feeling much better. He is ambulating around the room while waiting for discharge. Patient does have a ride home by his son. Will follow up with primary care in 1-2 days. (Matt Hennessy) I was available for consultation in the emergency department. The history and physical exam were done by the midlevel provider. I was consulted for this patient's care. I reviewed the case with the midlevel provider and based on their presentation of the patient, I agree with the assessment, medical decision making and plan of care as documented. (Kenya Rod) Disposition Is patient prescribed a controlled substance at d/c from ED?: No Time of Disposition: 03:02 <Matt Hennessy P - Last Filed: 10/17/18 03:02> <Kenya Rod - Last Filed: 10/17/18 05:42> Clinical Impression: Fall, Hip pain, left, Shoulder pain, left Disposition: HOME SELF-CARE Condition: Good Instructions (If sedation given, give patient instructions): Shoulder Pain (ED) , Hip Pain (ED) Additional Instructions: Please follow up with primary care in 1-2 days. Please take Tylenol for pain. Return here to the emergency department if youre having worsening symptoms or inability to ambulate. Referrals: Felipe Phillips MD [Primary Care Provider] - 1-2 days
--- NOTE | 2018-10-17 01:36 | XR ---
EXAM: XR Left Shoulder Complete, 2 or More Views CLINICAL HISTORY: ITS.REASON XR Reason: Pain slip and fall on ice onto left side, no prior, left shoulder pain TECHNIQUE: Two or more views of the left shoulder. COMPARISON: No relevant prior studies available. FINDINGS: Bones/joints: Mild degenerative changes of the glenohumeral and acromioclavicular joints. No acute fracture. No dislocation. Soft tissues: Unremarkable. IMPRESSION: No acute findings.
--- NOTE | 2018-10-17 01:52 | XR ---
EXAM: XR Left Hip With Pelvis When Performed, 2 or 3 Views CLINICAL HISTORY: ITS.REASON XR Reason: Pain TECHNIQUE: Two or three views of the left hip, with pelvis when performed. COMPARISON: 05/29/2018. FINDINGS: Bones/joints: Stable bilateral hip prostheses. No acute fracture. No dislocation. Soft tissues: Unremarkable. IMPRESSION: 1. No acute findings. 2. Stable bilateral hip prostheses
--- NOTE | 2018-10-17 02:09 | CT ---
EXAM: CT Head Without Intravenous Contrast CLINICAL HISTORY: ITS.REASON CT Reason: Pain slip and fall on ice onto left side, TECHNIQUE: Axial computed tomography images of the head/brain without intravenous contrast. CTDI is 45.2 mGy and DLP is 1030 mGy-cm. This CT exam was performed using one or more of the following dose reduction techniques: automated exposure control, adjustment of the mA and/or kV according to patient size, and/or use of iterative reconstruction technique. COMPARISON: No relevant prior studies available. FINDINGS: Brain: Mild volume loss with prominent ventricles and sulci. Minimal periventricular small vessel disease. No hemorrhage. Ventricles: Unremarkable. No ventriculomegaly. Bones/joints: See below. Soft tissues: Unremarkable. Sinuses: Paranasal sinus disease of the ethmoid air cells and left maxillary sinus. Left maxillary sinus mucoperiosteal thickening. Likely reflects chronic sinusitis changes. Small fluid level left maxillary sinus may relate to sinusitis or occult fracture. Mastoid air cells: Unremarkable as visualized. No mastoid effusion. IMPRESSION: 1. No evidence of acute intracranial abnormality or skull fracture. 2. Paranasal sinus disease. Left maxillary chronic sinusitis. Small fluid level left maxillary sinus may relate to sinusitis or occult fracture. EXAM: CT Cervical Spine Without Intravenous Contrast CLINICAL HISTORY: ITS.REASON CT Reason: Pain slip and fall on ice onto left side, TECHNIQUE: Axial computed tomography images of the cervical spine without intravenous contrast. CTDI is 11.8 mGy and DLP is 382.9 mGy-cm. This CT exam was performed using one or more of the following dose reduction techniques: automated exposure control, adjustment of the mA and/or kV according to patient size, and/or use of iterative reconstruction technique. COMPARISON: No relevant prior studies available. FINDINGS: Vertebrae: See below. No acute fracture or malalignment. Discs/spinal canal/neural foramina: Multilevel degenerative changes, most severe at C3-4 where there is marked disc space narrowing, osteophytes and endplate sclerosis. Focal moderate to severe central canal stenosis at this level. Canal measures 5 mm in AP dimension. Likely severe foraminal stenoses at this level. Soft tissues: Unremarkable. Sinuses: Partially visualized paranasal sinus disease. Left maxillary sinus mucoperiosteal thickening. Likely reflects chronic sinusitis changes. Small fluid level left maxillary sinus may relate to sinusitis or occult fracture. IMPRESSION: 1.No evidence of acute fracture or malalignment. 2. Multilevel degenerative changes. Most severe at C3-4, where there is focal moderate to severe central canal and severe foraminal stenoses. Correlate and consider MRI follow-up 3. Paranasal sinus disease. Left maxillary chronic sinusitis. Small fluid level left maxillary sinus may relate to sinusitis or occult fracture.
--- NOTE | 2018-10-17 02:43 | CT ---
EXAM: CT Pelvis Without Intravenous Contrast CLINICAL HISTORY: ITS.REASON CT Reason: Pain fall onto ice, onto left side, prior ct left hip TECHNIQUE: Axial computed tomography images of the pelvis without intravenous contrast. CTDI is 13.3 mGy and DLP is 596.3 mGy-cm. This CT exam was performed using one or more of the following dose reduction techniques: automated exposure control, adjustment of the mA and/or kV according to patient size, and/or use of iterative reconstruction technique. COMPARISON: X-ray today and prior CT 05/30/2018. FINDINGS: Bones/joints: Bilateral hip prostheses. Causes some artifact. Oblique lucency of the left proximal femoral shaft adjacent to the prosthesis is similar to the prior study, although slightly less distinct. Degenerative changes of the lower lumbosacral spine. No dislocation. Soft tissues: Unremarkable. Vasculature: Unremarkable. No lower abdominal aortic aneurysm. Lymph nodes: Unremarkable. No enlarged lymph nodes. Bowel: Large amount of formed fecal material in the distal colon. No mucosal thickening. Appendix: No findings to suggest acute appendicitis. Intraperitoneal space: Unremarkable. No free air. No significant fluid collection. Bladder: Unremarkable. IMPRESSION: 1. Bilateral hip prosthesis. 2. No evidence of acute fracture or dislocation. 3. Oblique lucency of the left proximal femoral shaft adjacent to the prosthesis is similar to the prior study, although slightly less distinct. Query chronic fracture line, re-fracture or partly a nutrient foramen. Correlate and consider follow-up.
[2018-10-17 03:24] VITALS: BP 144/74; PULSE 87; RESP 18; TEMP 97
== END 2018-10-17 03:24 | disposition home or self-care (01) ==
LOC: EC 00:18
DX: M25.512 Pain in left shoulder (principal); M25.552 Pain in left hip; R93.89 Abnormal findings on diagnostic imaging of other specified body structures; J44.9 Chronic obstructive pulmonary disease, unspecified; E11.9 Type 2 diabetes mellitus without complications; M19.90 Unspecified osteoarthritis, unspecified site; E78.5 Hyperlipidemia, unspecified; I10 Essential (primary) hypertension; H91.90 Unspecified hearing loss, unspecified ear; Z87.891 Personal history of nicotine dependence; Z79.4 Long term (current) use of insulin; Z79.899 Other long term (current) drug therapy; Z96.643 Presence of artificial hip joint, bilateral; W00.0XXA Fall on same level due to ice and snow, initial encounter; Y93.01 Activity, walking, marching and hiking; Y92.89 Other specified places as the place of occurrence of the external cause
CPT/HCPCS: 73030; 73502; 72192; 72125; 70450; 99284; 96372; J2270

== ENCOUNTER 2019-04-23 15:52 | Emergency (ER) | payer OTHER ==
[2019-04-23 16:04] VITALS: BP 171/97; PULSE 119; RESP 18; TEMP 99.3
[2019-04-23] MEDS ORDERED: AMOXIC-POT CLAV 875-125MG 1 EACH TAB PO STA (16:27)
--- NOTE | 2019-04-23 16:35 | ED ---
URI HPI - General Chief Complaint: Upper Respiratory Infection Stated Complaint: HEADACHE, SINUS AREA X 4 DAYS Time Seen by Provider: 04/23/19 16:10 Source: patient, RN notes reviewed Mode of arrival: wheelchair Limitations: no limitations - History of Present Illness Initial Comments: This is a 63-year-old male who states he's had sinus congestion and pain for last approximately 3-4 days he has not been sleeping for the past several days because of this he's had nausea sweats sinus congestion no overt fevers or chills he has had sweats. He has a frontal headache especially on the right feels like a stabbing type pain no nosebleeds no phlegm production no cough no shortness of breath or chest pain. No other modifying factors or symptoms other than left ear pain which started today MD Complaint: sore throat, rhinorrhea, nasal congestion, sinus pain - Related Data Home Medications Medication Instructions Recorded Confirmed Atorvastatin Calcium [Lipitor] 20 mg PO HS 02/03/14 04/23/19 Insulin Detemir (Levemir) [Levemir] 30 unit SQ HS 02/03/14 04/23/19 metFORMIN HCL [Glucophage] 500 mg PO BID 02/03/14 04/23/19 Lisinopril [Prinivil] 20 mg PO DAILY 08/05/14 04/23/19 Montelukast [Singulair] 10 mg PO HS 08/05/14 04/23/19 Omalizumab [Xolair] 150 mg SQ Q30D 08/18/16 04/23/19 Albuterol Sulfate [Proair Hfa] 1 - 2 puff INHALATION RT-QID PRN 04/23/19 04/23/19 Beclomethasone Dipropionate [Qvar 2 puff INHALATION RT-BID 04/23/19 04/23/19 80 mcg] Hydrochlorothiazide [Hydrodiuril] 25 mg PO DAILY 04/23/19 04/23/19 Insulin Lispro [Admelog] 20 unit SQ AC-TID 04/23/19 04/23/19 Previous Rx's Medication Instructions Recorded Aspirin 325 mg PO BID #60 tab 06/01/18 Amoxicillin/Potassium Clav 1 tab PO Q12HR #20 tab 04/23/19 [Augmentin 875-125 Tablet] Guaifenesin/Pseudoephedrne HCl 1 each PO RT-Q12H #20 tab.er.12h 04/23/19 [Mucinex D ER 1,200-120 mg Tab] Allergies Allergy/AdvReac Type Severity Reaction Status Date / Time No Known Allergies Allergy Verified 04/23/19 16:14 Review of Systems ROS Statement: Those systems with pertinent positive or pertinent negative responses have been documented in the HPI. ROS Other: All systems not noted in ROS Statement are negative. Past Medical History Past Medical History: Asthma, COPD, Diabetes Mellitus, Hearing Disorder / Deafness, Hyperlipidemia, Hypertension, Osteoarthritis (OA), Skin Disorder Additional Past Medical History / Comment(s): IDDM type II, arthritis in multiple joints, psoriasis, vitiligo History of Any Multi-Drug Resistant Organisms: None Reported Past Surgical History: Joint Replacement Additional Past Surgical History / Comment(s): Bilateral hip replacements Past Anesthesia/Blood Transfusion Reactions: Previous Problems w/ Anesthesia Additional Past Anesthesia/Blood Transfusion Reaction / Comment(s): pt states was unable to receive spinal tap with last surgery d/t arthritis in back, received general anesthetic" Past Psychological History: Anxiety Smoking Status: Former smoker Past Alcohol Use History: None Reported Past Drug Use History: Marijuana - Past Family History Mother Family Medical History: Eye Disorder, Hearing Disorder / Deafness Additional Family Medical History / Comment(s): Father is 90yrs old. He has glaucoma and is [place]. General Exam - General Exam Comments Initial Comments: This is a well-developed well-nourished awake alert oriented 3 male Limitations: no limitations General appearance: alert, anxious Head exam: Present: atraumatic, normocephalic, normal inspection Eye exam: Present: normal appearance, PERRL, EOMI. Absent: scleral icterus, conjunctival injection, periorbital swelling ENT exam: Present: mucous membranes dry, other (Posterior pharyngeal erythema with erythematous uvula, boggy nasal mucosa with some clear drainage, the left h epatic membrane is dull with some protrusion consistent with fluid behind the membrane.). Absent: TM's normal bilaterally Neck exam: Present: normal inspection, full ROM, other (No stridor JVD or bruits). Absent: tenderness, meningismus, lymphadenopathy Respiratory exam: Present: normal lung sounds bilaterally. Absent: respiratory distress, wheezes, rales, rhonchi, stridor Cardiovascular Exam: Present: regular rate, normal rhythm, normal heart sounds. Absent: systolic murmur, diastolic murmur, rubs, gallop, clicks GI/Abdominal exam: Absent: distended, tenderness, guarding, rebound, rigid Extremities exam: Present: normal inspection, full ROM, normal capillary refill. Absent: tenderness, pedal edema, joint swelling, calf tenderness Back exam: Present: normal inspection Neurological exam: Present: alert, oriented X3, CN II-XII intact Psychiatric exam: Present: normal affect, normal mood Skin exam: Present: warm, intact, normal color, diaphoretic. Absent: rash Course Vital Signs 04/23/19 16:01 Temperature 99.3 F Pulse Rate 119 H Respiratory 18 Rate Blood Pressure 171/97 O2 Sat by Pulse 98 Oximetry Medical Decision Making - Medical Decision Making The presentation is consistent with otitis media on the left as well as si nusitis. Patient does demonstrate fever sweats and other symptoms consistent with the above. He'll be placed on appropriate antibiotics and recommend decongestants. Disposition Clinical Impression: Sinusitis, Otitis media of left ear, Febrile illness, acute Disposition: HOME SELF-CARE Condition: Good Instructions (If sedation given, give patient instructions): Ear Infection (ED), Rhinosinusitis (ED), Fever in Adults (ED) Additional Instructions: Prescription sent to your [facility] pharmacy Prescriptions: Amoxicillin/Potassium Clav [Augmentin 875-125 Tablet] 1 tab PO Q12HR #20 tab Guaifenesin/Pseudoephedrne HCl [Mucinex D ER 1,200-120 mg Tab] 1 each PO RT-Q12H #20 tab.er.12h Is patient prescribed a controlled substance at d/c from ED?: No Referrals: Felipe Phillips MD [Primary Care Provider] - 1-2 days
== END 2019-04-23 16:55 | disposition home or self-care (01) ==
LOC: EC 15:52
DX: J32.9 Chronic sinusitis, unspecified (principal); H66.92 Otitis media, unspecified, left ear; J44.9 Chronic obstructive pulmonary disease, unspecified; E11.9 Type 2 diabetes mellitus without complications; E78.5 Hyperlipidemia, unspecified; I10 Essential (primary) hypertension; Z87.891 Personal history of nicotine dependence; Z79.4 Long term (current) use of insulin; Z79.51 Long term (current) use of inhaled steroids; Z79.899 Other long term (current) drug therapy; Z96.643 Presence of artificial hip joint, bilateral
CPT/HCPCS: 99283

== ENCOUNTER 2019-05-14 19:35 | Observation (INO) | payer OTHER ==
--- NOTE | 2019-05-14 20:17 | ED ---
General Adult HPI - General Chief complaint: Chest Pain Stated complaint: Fall/chest tightness Time Seen by Provider: 05/14/19 19:46 Source: patient Mode of arrival: wheelchair Limitations: no limitations - History of Present Illness Initial comments: Patient presents to the ED stating that he accidentally fell down as he was attempting to sit on his bed this evening. Patient states that he's had left lateral hip pain since this fall, but he states that he has been ambulatory since falling. Patient also states that he has had a "squeezing" pain in his left chest that began after falling about an hour ago. Patient denies chest or trunk trauma or injury. Patient denies any other injury or site of pain, head injury, headache, LOC, focal neuro deficit, neck or back pain, upper extremity pain, dyspnea, fever or chills, cough or cold symptoms, pleuritic pain, palpitations, dizziness, abdominal pain, nausea or vomiting, or any other symptoms or complaints. - Related Data Home Medications Medication Instructions Recorded Confirmed Atorvastatin Calcium [Lipitor] 20 mg PO HS 02/03/14 05/14/19 Insulin Detemir (Levemir) [Levemir] 30 unit SQ HS 02/03/14 05/14/19 metFORMIN HCL [Glucophage] 500 mg PO BID 02/03/14 05/14/19 Lisinopril [Prinivil] 20 mg PO DAILY 08/05/14 05/14/19 Montelukast [Singulair] 10 mg PO DAILY 08/05/14 05/14/19 Omalizumab [Xolair] 150 mg SQ Q30D 08/18/16 05/14/19 Albuterol Sulfate [Proair Hfa] 1 - 2 puff INHALATION RT-QID PRN 04/23/19 05/14/19 Beclomethasone Dipropionate [Qvar 2 puff INHALATION RT-BID 04/23/19 05/14/19 80 mcg] Hydrochlorothiazide [Hydrodiuril] 25 mg PO DAILY 04/23/19 05/14/19 Insulin Lispro [Admelog] 20 unit SQ AC-TID 04/23/19 05/14/19 Allergies Allergy/AdvReac Type Severity Reaction Status Date / Time No Known Allergies Allergy Verified 05/14/19 20:05 Review of Systems ROS Statement: Those systems with pertinent positive or pertinent negative responses have been documented in the HPI. ROS Other: All systems not noted in ROS Statement are negative. Past Medical History Past Medical History: Asthma, COPD, Diabetes Mellitus, Hearing Disorder / Deafness, Hyperlipidemia, Hypertension, Osteoarthritis (OA), Skin Disorder Additional Past Medical History / Comment(s): IDDM type II, arthritis in multiple joints, psoriasis, vitiligo History of Any Multi-Drug Resistant Organisms: None Reported Past Surgical History: Joint Replacement Additional Past Surgical History / Comment(s): Bilateral hip replacements Past Anesthesia/Blood Transfusion Reactions: Previous Problems w/ Anesthesia Additional Past Anesthesia/Blood Transfusion Reaction / Comment(s): pt states was unable to receive spinal tap with last surgery d/t arthritis in back, receiv ed general anesthetic" Past Psychological History: Anxiety Smoking Status: Former smoker Past Alcohol Use History: None Reported Past Drug Use History: Marijuana - Past Family History Mother Family Medical History: Eye Disorder, Hearing Disorder / Deafness Additional Family Medical History / Comment(s): Father is 90yrs old. He has glaucoma and is [place]. General Exam Limitations: no limitations General appearance: alert, in no apparent distress Head exam: Present: atraumatic, normocephalic Eye exam: Present: normal appearance, EOMI ENT exam: Present: mucous membranes moist Neck exam: Present: full ROM. Absent: tenderness Respiratory exam: Present: normal lung sounds bilaterally, other (No chest wall crepitation is appreciated). Absent: respiratory distress, wheezes, rales, rhonchi, chest wall tenderness Cardiovascular Exam: Present: normal rhythm, tachycardia, normal heart sounds, other (Normal radial pulses bilaterally) GI/Abdominal exam: Present: soft. Absent: distended, tenderness, guarding Extremities exam: Present: full ROM, other (Mild left lateral hip tenderness; pelvis is stable). Absent: pedal edema, calf tenderness Back exam: Absent: tenderness Neurological exam: Present: alert, oriented X3, CN II-XII intact. Absent: motor sensory deficit Psychiatric exam: Present: anxious Skin exam: Present: warm, dry, intact, normal color Course Vital Signs 05/14/19 05/14/19 05/14/19 19:39 20:39 20:42 Temperature 98.3 F 98 F Pulse Rate 109 H 90 Respiratory 20 20 18 Rate Blood Pressure 139/79 146/90 O2 Sat by Pulse 97 100 Oximetry 05/14/19 21:32 Temperature 98.9 F Pulse Rate 72 Respiratory 18 Rate Blood Pressure 149/83 O2 Sat by Pulse 100 Oximetry - Reevaluation(s) Reevaluation #1: 05/14/19 21:34 Patient remains alert and breathing comfortably. Patient states that his pain has improved with ED treatment. Patient denies development of any new pain or symptoms while in the ED. Patient is aware of his test results, and he agrees with hospital admission at this time. 05/14/19 21:38 Case, H&P, test results and ED management were discussed with Dr. Barry. He accepts floor admission. He has no further recommendations at this time. EKG Findings - EKG Comments: EKG Findings:: Sinus tachycardia, ventricular rate of 103 beats per minute, normal [place] and QRS intervals, normal QT interval, no ST or T-wave abnormality, no rmal axis Medical Decision Making - Medical Decision Making Patient's EKG shows no ST or T-wave abnormality. Patient's chest and left hip x-rays are negative. Patient's labs are fairly unremarkable, including a negative troponin. Patient has a normal room air oxygen saturation. I do not suspect that the patient's chest pain is traumatic in etiology. Given the patient's multiple cardiac risk factors, will admit the patient to the hospital for further cardiac workup/monitoring. - Lab Data Result diagrams: 05/14/19 19:55 05/14/19 19:55 Lab Results 05/14/19 05/14/19 05/14/19 Range/Units 19:55 19:55 19:55 WBC 9.1 (3.8-10.6) k/uL RBC 3.99 L (4.30-5.90) m/uL Hgb 13.6 (13.0-17.5) gm/dL Hct 38.7 L (39.0-53.0) % MCV 97.1 (80.0-100.0) fL MCH 34.1 (25.0-35.0) pg MCHC 35.1 (31.0-37.0) g/dL RDW 13.8 (11.5-15.5) % Plt Count 377 (150-450) k/uL Neutrophils % 67 % Lymphocytes % 23 % Monocytes % 6 % Eosinophils % 1 % Basophils % 1 % Neutrophils # 6.2 (1.3-7.7) k/uL Lymphocytes # 2.1 (1.0-4.8) k/uL Monocytes # 0.6 (0-1.0) k/uL Eosinophils # 0.1 (0-0.7) k/uL Basophils # 0.0 (0-0.2) k/uL PT (9.0-12.0) sec INR (<1.2) APTT (22.0-30.0) sec Sodium 139 (137-145) mmol/L Potassium 4.6 (3.5-5.1) mmol/L Chloride 102 (98-107) mmol/L Carbon Dioxide 25 (22-30) mmol/L Anion Gap 12 mmol/L BUN 8 L (9-20) mg/dL Creatinine 0.49 L (0.66-1.25) mg/dL Est GFR (CKD-EPI)AfAm >90 (>60 ml/min/1.73 sqM) Est GFR (CKD-EPI)NonAf >90 (>60 ml/min/1.73 sqM) Glucose 268 H (74-99) mg/dL Calcium 10.1 (8.4-10.2) mg/dL Magnesium 1.9 (1.6-2.3) mg/dL Total Bilirubin 0.6 (0.2-1.3) mg/dL AST 23 (17-59) U/L ALT 18 L (21-72) U/L Alkaline Phosphatase 80 (38-126) U/L Troponin I (0.000-0.034) ng/mL NT-Pro-B Natriuret Pep 32 pg/mL Total Protein 8.0 (6.3-8.2) g/dL Albumin 4.7 (3.5-5.0) g/dL 05/14/19 05/14/19 Range/Units 19:55 19:55 WBC (3.8-10.6) k/uL RBC (4.30-5.90) m/uL Hgb (13.0-17.5) gm/dL Hct (39.0-53.0) % MCV (80.0-100.0) fL MCH (25.0-35.0) pg MCHC (31.0-37.0) g/dL RDW (11.5-15.5) % Plt Count (150-450) k/uL Neutrophils % % Lymphocytes % % Monocytes % % Eosinophils % % Basophils % % Neutrophils # (1.3-7.7) k/uL Lymphocytes # (1.0-4.8) k/uL Monocytes # (0-1.0) k/uL Eosinophils # (0-0.7) k/uL Basophils # (0-0.2) k/uL PT 10.6 (9.0-12.0) sec INR 1.0 (<1.2) APTT 24.3 (22.0-30.0) sec Sodium (137-145) mmol/L Potassium (3.5-5.1) mmol/L Chloride (98-107) mmol/L Carbon Dioxide (22-30) mmol/L Anion Gap mmol/L BUN (9-20) mg/dL Creatinine (0.66-1.25) mg/dL Est GFR (CKD-EPI)AfAm (>60 ml/min/1.73 sqM) Est GFR (CKD-EPI)NonAf (>60 ml/min/1.73 sqM) Glucose (74-99) mg/dL Calcium (8.4-10.2) mg/dL Magnesium (1.6-2.3) mg/dL Total Bilirubin (0.2-1.3) mg/dL AST (17-59) U/L ALT (21-72) U/L Alkaline Phosphatase (38-126) U/L Troponin I <0.012 (0.000-0.034) ng/mL NT-Pro-B Natriuret Pep pg/mL Total Protein (6.3-8.2) g/dL Albumin (3.5-5.0) g/dL - Radiology Data Radiology results: image reviewed (Chest and left hip x-rays are negative) Disposition Clinical Impression: Fall, Chest pain, Contusion of left hip Disposition: ADMITTED IP TO THIS [facility] Condition: Stable Is patient prescribed a controlled substance at d/c from ED?: No Referrals: Felipe Phillips MD [Primary Care Provider] - 1-2 days Time of Disposition: 21:38 Decision Date: 05/14/19 Decision Time: 21:35
[2019-05-14] MEDS ORDERED: HYDROmorphone 0.5 MG/0.5 ML SYRINGE IVP STA (20:24)
[2019-05-14] MEDS ORDERED: ASPIRIN 81 MG PO STA (20:24)
[2019-05-14 20:25] LABS: Basophils % (A) 1 %; Eosinophils # (A) 0.1 k/uL (0-0.7); Eosinophils % (A) 1 %; HCT 38.7 % (39.0-53.0); HGB 13.6 gm/dL (13.0-17.5); Lymphocytes # (A) 2.1 k/uL (1.0-4.8); Lymphocytes % (A) 23 %; MCH 34.1 pg (25.0-35.0); MCHC 35.1 g/dL (31.0-37.0); MCV 97.1 fL (80.0-100.0); Mean Platelet Volume 6.9; Monocytes # (A) 0.6 k/uL (0-1.0); Monocytes % (A) 6 %; Neutrophils # (A) 6.2 k/uL (1.3-7.7); Neutrophils % (A) 67 %; Platelet Count 377 k/uL (150-450); RBC 3.99 m/uL (4.30-5.90); RDW 13.8 % (11.5-15.5); WBC 9.1 k/uL (3.8-10.6)
[2019-05-14 20:34] LABS: ALT 18 U/L (21-72); AST 23 U/L (17-59); African American GFR (CKD) >90 (>60 ml/min/1.73 sqM); Albumin 4.7 g/dL (3.5-5.0); Alkaline Phosphatase 80 U/L (38-126); Anion Gap 12 mmol/L; Blood Urea Nitrogen 8 mg/dL (9-20); Calcium 10.1 mg/dL (8.4-10.2); Carbon Dioxide 25 mmol/L (22-30); Chloride 102 mmol/L (98-107); Glucose 268 mg/dL (74-99); Magnesium 1.9 mg/dL (1.6-2.3); Potassium 4.6 mmol/L (3.5-5.1); Sodium 139 mmol/L (137-145); Total Bilirubin 0.6 mg/dL (0.2-1.3)
[2019-05-14 20:42] LABS: Partial Thromboplastin Time 24.3 sec (22.0-30.0); Prothrombin Time 10.6 sec (9.0-12.0)
--- NOTE | 2019-05-14 21:06 | XR ---
EXAMINATION TYPE: XR chest 2V DATE OF EXAM: 05/14/2019 COMPARISON: 05/29/2018 HISTORY: Chest pain TECHNIQUE: Frontal and lateral views of the chest are obtained. FINDINGS: Heart and mediastinum are normal. Lungs are clear. Diaphragm is normal. Bony thorax is int act. IMPRESSION: Normal chest. No change.
--- NOTE | 2019-05-14 21:07 | XR ---
EXAMINATION TYPE: XR Hip Complete LT DATE OF EXAM: 05/14/2019 COMPARISON: 10/17/2018 HISTORY: Hip pain TECHNIQUE: 3 views FINDINGS: There is left hip prosthesis. Components are in anatomic position. I see no fracture. Sacro iliac joint appears intact. IMPRESSION: No fracture seen. No change compared to old exam.
[2019-05-14] MEDS ORDERED: NITROGLYCERIN OINT 1 INCH/GM PACKET TOPICAL STA (21:35)
[2019-05-14 22:53] VITALS: BP 164/84; PULSE 77; RESP 15; TEMP 98
[2019-05-14 22:59] LABS: Glucose,Whole Blood 201 mg/dL (75-99)
[2019-05-14 23:05] VITALS: BMI 29.4
== END 2019-05-15 00:42 | disposition left against medical advice (07) ==
LOC: EC 19:35 → 1SOBS 21:40
PROVIDERS: ADMIT Internal Medicine; ATTEND Internal Medicine
DX: R07.89 Other chest pain (principal); S70.02XA Contusion of left hip, initial encounter; W19.XXXA Unspecified fall, initial encounter; J44.9 Chronic obstructive pulmonary disease, unspecified; E11.9 Type 2 diabetes mellitus without complications; E78.5 Hyperlipidemia, unspecified; I10 Essential (primary) hypertension; M19.90 Unspecified osteoarthritis, unspecified site; H91.90 Unspecified hearing loss, unspecified ear; L80 Vitiligo; F41.9 Anxiety disorder, unspecified; Z79.899 Other long term (current) drug therapy; Z79.4 Long term (current) use of insulin; Z96.643 Presence of artificial hip joint, bilateral; Z87.891 Personal history of nicotine dependence; Z83.511 Family history of glaucoma; Z82.2 Family history of deafness and hearing loss
CPT/HCPCS: 96374; 99285; 36415; 93005; 83880; 80053; 83735; 84484; 85025; 85610; 85730; 73502; 71046; G0378; J1170

== ENCOUNTER → 2019-07-17 | Outpatient (CLI) | payer OTHER ==
[2019-07-17 13:38] VITALS: BP 129/86; PULSE 100; RESP 16
--- NOTE | 2019-07-17 14:19 | P.PN ---
Progress Note - Text Progress Note Date: 07/17/19 Patient was seen by nursing staff. Patient left prior to being seen by me, the attending physician.
== END | disposition home or self-care (01) ==
LOC: PNWHC3 12:39
PROVIDERS: ATTEND Anesthesiology
DX: M96.89 Other intraoperative and postprocedural complications and disorders of the musculoskeletal system (principal); M25.552 Pain in left hip; F41.9 Anxiety disorder, unspecified; Z96.643 Presence of artificial hip joint, bilateral; Z87.891 Personal history of nicotine dependence; Z79.899 Other long term (current) drug therapy
CPT/HCPCS: 99211

== ENCOUNTER 2020-01-09 21:40 | Emergency (ER) | payer MEDICARE, OTHER ==
[2020-01-09] MEDS ORDERED: MORPHINE SULFATE 4 MG/ML SYRINGE IM STA (22:50)
--- NOTE | 2020-01-09 23:27 | XR ---
EXAMINATION TYPE: XR Hip Bilateral and AP pelvis DATE OF EXAM: 01/09/2020 COMPARISON: 10/17/2018 HISTORY: Fall. Hip pain TECHNIQUE: 5 views FINDINGS: Pelvic ring is intact. There is bilateral hip prosthesis. I see no fracture nor dislocation . Components are in anatomic position. IMPRESSION: Bilateral hip prosthesis. No fracture seen. No adverse change compared to old exam.
--- NOTE | 2020-01-09 23:28 | XR ---
EXAMINATION TYPE: XR lumbar spine 2 or 3V DATE OF EXAM: 01/09/2020 COMPARISON: NONE HISTORY: Back pain. Fall. TECHNIQUE: 3 views FINDINGS: Lumbar vertebra have normal alignment. Disc spaces are normal. There is mild spurring of th e endplates. Posterior elements are intact. Sacroiliac joints appear normal. IMPRESSION: Negative lumbar spine exam. No fracture seen.
[2020-01-09] MEDS ORDERED: CYCLOBENZAPRINE 10MG STARTER 3 TAB BTL PO STA (23:44)
[2020-01-10] MEDS ORDERED: CYCLOBENZAPRINE 5 MG TAB PO ONE
[2020-01-10] MEDS ORDERED: ACET/COD 300 MG/30 MG STARTER PACK 6 TAB BTL PO STA (00:08)
--- NOTE | 2020-01-10 00:08 | ED ---
General Adult HPI - General Chief complaint: Fall Stated complaint: Fall, hip pain Time Seen by Provider: 01/09/20 21:59 Source: patient, RN notes reviewed, old records reviewed Mode of arrival: ambulatory Limitations: no limitations - History of Present Illness Initial comments: 64-year-old male patient with the chief complaint of fall. Patient was reportedly going to sit in his wheelchair when he sat straight down and missed and landed on his gluteal region. Patient is complaining of bilateral paralumbar back pain as well as hip pain. Still been ambulatory. Denies any other complaints. Denies any numbness tingling, new onset weakness, loss of bowel or bladder control. Pt has baseline LLE weakness after hip replacement. Denies any trauma to head or neck. Systemic: Pt denies fatigue, fever/chills, rash. Pt denies weakness, night sweats, weight loss. Neuro: Pt denies headache, visual disturbances, syncope or pre-syncope. HEENT: Pt denies ocular discharge or irritation, otalgia, rhinorrhea, pharyngitis or notable lymphadenopathy. Cardiopulmonary: Pt denies chest pain, SOB, heart palpitations, dyspnea on exertion. Abdominal/GI: Pt denies abdominal pain, n/v/d. : Pt denies dysuria, burning w/ urination, frequency/urgency. Denies new onset urinary or bowel incontinence. MSK: Pt denies loss of strength or function in extremities. Neuro: Pt denies new onset weakness, paresthesias. - Related Data Home Medications Medication Instructions Recorded Confirmed Atorvastatin Calcium [Lipitor] 20 mg PO HS 02/03/14 07/17/19 Insulin Detemir (Levemir) [Levemir] 30 unit SQ HS 02/03/14 07/17/19 metFORMIN HCL [Glucophage] 500 mg PO BID 02/03/14 07/17/19 Lisinopril [Prinivil] 20 mg PO DAILY 08/05/14 07/17/19 Albuterol Sulfate [Proair Hfa] 1 - 2 puff INHALATION RT-QID PRN 04/23/19 07/17/19 Beclomethasone Dipropionate [Qvar 2 puff INHALATION RT-BID 04/23/19 07/17/19 80 mcg] Hydrochlorothiazide [Hydrodiuril] 25 mg PO DAILY 04/23/19 07/17/19 Insulin Lispro [Admelog] 20 unit SQ PC-TID 04/23/19 07/17/19 Allergies Allergy/AdvReac Type Severity Reaction Status Date / Time No Known Allergies Allergy Verified 01/09/20 21:49 Review of Systems ROS Statement: Those systems with pertinent positive or pertinent negative responses have been documented in the HPI. ROS Other: All systems not noted in ROS Statement are negative. Past Medical History Past Medical History: Asthma, COPD, Diabetes Mellitus, Hearing Disorder / Deafness, Hyperlipidemia, Hypertension, Osteoarthritis (OA), Skin Disorder Additional Past Medical History / Comment(s): IDDM type II, arthritis in multiple joints, psoriasis, vitiligo, [place], hx of feeling lightheaded and falls., ? Hx of CVA- states left arm weak-unable to lift or reach far-unable to grasp with left hand , weakness left leg and states left foot drops down and catches on everything., states fall after Left Hip surgery with fx., uses wheelchair and cane., lower back and left hip pain. History of Any Multi-Drug Resistant Organisms: None Reported Past Surgical History: Joint Replacement Additional Past Surgical History / Comment(s): Bilateral hip replacements Past Anesthesia/Blood Transfusion Reactions: No Reported Reaction Additional Past Anesthesia/Blood Transfusion Reaction / Comment(s): pt states was unable to receive spinal tap with last surgery d/t arthritis in back, received general anesthetic" Past Psychological History: Anxiety Smoking Status: Former smoker - Past Family History Mother Family Medical History: Eye Disorder, Hearing Disorder / Deafness Additional Family Medical History / Comment(s): Father is 90yrs old. He has glaucoma and is [place]. General Exam - General Exam Comments Initial Comments: Constitutional: NAD, AOX3, Pt has pleasant affect. HEENT: NC/AT, trachea midline, neck supple, no lymphadenopathy. Posterior pharynx non erythematous, without exudates. External ears appear normal, without discharge. Mucous membranes moist. Eyes PERRLA, EOM intact. There is no scleral icterus. No pallor noted. Cardiopulmonary: RRR, no murmurs, rubs or gallops, no JVD noted. Lungs CTAB in anterior and posterior [place]. No peripheral edema. Abdominal exam: Abdomen soft and non-distended. Abdomen non-tender to palpation in all 4 quadrants. Bowel sounds active in LLQ. No hepatosplenomegaly. No ecchymosis Neuro: CN II-XII grossly intact. No nuchal rigidity. No raccon eyes, no curran s ign, no hemotympanum. No cervical spinal tenderness. MSK: Mild bilateral paralumbar tenderness. No midline tenderness. 5 strength right lower extremity. 3/5 strength left lower extremity - baseline for Patient. Ambulatory without difficulty. The films did not display acute pathology. No posterior calf tenderness bilaterally, homans sign negative bilaterally. Posterior tibialis and radial pulse +2 bilaterally. Sensation intact in upper and lower extremities. Full active ROM in upper and lower extremities, 5/5 stregnth. Limitations: no limitations Course Vital Signs 01/09/20 21:46 Temperature 98.6 F Pulse Rate 105 H Respiratory 20 Rate Blood Pressure 121/88 O2 Sat by Pulse 98 Oximetry Medical Decision Making - Medical Decision Making 64-year-old male patient with the chief complaint of fall. Patient was report edly going to sit in his wheelchair when he sat straight down and missed and landed on his gluteal region. Patient is complaining of bilateral paralumbar back pain as well as hip pain. Still been ambulatory. Denies any other complaints. Denies any numbness tingling, new onset weakness, loss of bowel or bladder control. Pt has baseline LLE weakness after hip replacement. Denies any trauma to head or neck. Pt VSS, afebrile. Physical exam displayed: Mild bilateral paralumbar tenderness. No midline tenderness. 5 strength right lower extremity. 3/5 strength left lower extremity - baseline for Patient. Ambulatory without difficulty. The films did not display acute pathology. Patient feeling much improved with analgesia. Discharge pain medication as well as muscle relaxers as patient reports he is having some muscle spasms. Will return to ED ifcondition worsens otherwise will follow up with PCP. CAse discussed with Dr. Oneil. Disposition Clinical Impression: Fall, Lumbar strain Disposition: HOME SELF-CARE Condition: Stable Instructions (If sedation given, give patient instructions): Low Back Strain (ED), Fall Prevention (ED) Additional Instructions: Follow-up with primary care provider tomorrow. Break muscle relaxer in half, take one have every 8 hours as needed. May use tylenol #3 every 8 hours as needed. Return to ER if condition worsens. Is patient prescribed a controlled substance at d/c from ED?: No Referrals: Catherine Barry MD [Primary Care Provider] - 1-2 days
[2020-01-10 00:28] VITALS: BP 120/84; PULSE 90; RESP 18; TEMP 98.4
== END 2020-01-10 00:28 | disposition home or self-care (01) ==
LOC: EC 21:40
DX: S39.012A Strain of muscle, fascia and tendon of lower back, initial encounter (principal); M25.551 Pain in right hip; M25.552 Pain in left hip; M62.838 Other muscle spasm; J44.9 Chronic obstructive pulmonary disease, unspecified; E11.9 Type 2 diabetes mellitus without complications; E78.5 Hyperlipidemia, unspecified; I10 Essential (primary) hypertension; M46.80 Other specified inflammatory spondylopathies, site unspecified; Z96.643 Presence of artificial hip joint, bilateral; Z87.891 Personal history of nicotine dependence; Z79.4 Long term (current) use of insulin; Z79.51 Long term (current) use of inhaled steroids; Z79.899 Other long term (current) drug therapy; W05.0XXA Fall from non-moving wheelchair, initial encounter; Y92.009 Unspecified place in unspecified non-institutional (private) residence as the place of occurrence of the external cause
CPT/HCPCS: 72100; 73521; 99284; 96372; J2270

== ENCOUNTER 2020-04-14 17:56 | Inpatient (IN) | payer MEDICARE, OTHER ==
[2020-04-14] MEDS ORDERED: HYDROmorphone 0.5 MG/0.5 ML SYRINGE IVP STA (18:33)
[2020-04-14] MEDS ORDERED: SODIUM CHLORIDE 0.9% 500 ML 500 ML IV STA (18:33)
--- NOTE | 2020-04-14 18:41 | ED ---
General Adult HPI - General Chief complaint: Weakness Stated complaint: dizziness, frequent falls Time Seen by Provider: 04/14/20 18:22 Source: patient, RN notes reviewed, old records reviewed Mode of arrival: wheelchair Limitations: no limitations - History of Present Illness Initial comments: 64-year-old male presenting for evaluation of lightheadedness, multiple falls. States he's had diarrhea for the past several days, no abdominal pain, no vomit ing. No fever. He states his diarrhea is yellow. He also states that his urine is seen very concentrated. He states that when he stands he becomes quite dizzy and has fallen multiple times. He is complaining of left hip pain, and low back pain. He is uncertain if he has had. He denies current chest pain or dyspnea. No fever. No abdominal pain. - Related Data Home Medications Medication Instructions Recorded Confirmed Atorvastatin Calcium [Lipitor] 20 mg PO HS 02/03/14 07/17/19 Insulin Detemir (Levemir) [Levemir] 30 unit SQ HS 02/03/14 07/17/19 metFORMIN HCL [Glucophage] 500 mg PO BID 02/03/14 07/17/19 lisinopriL [Prinivil] 20 mg PO DAILY 08/05/14 07/17/19 Albuterol Sulfate [Proair Hfa] 1 - 2 puff INHALATION RT-QID PRN 04/23/19 07/17/19 Beclomethasone Dipropionate [Qvar 2 puff INHALATION RT-BID 04/23/19 07/17/19 80 mcg] Insulin Lispro [Admelog] 20 unit SQ PC-TID 04/23/19 07/17/19 hydroCHLOROthiazide [Hydrodiuril] 25 mg PO DAILY 04/23/19 07/17/19 Allergies Allergy/AdvReac Type Severity Reaction Status Date / Time No Known Allergies Allergy Verified 04/14/20 18:07 Review of Systems ROS Statement: Those systems with pertinent positive or pertinent negative responses have been documented in the HPI. ROS Other: All systems not noted in ROS Statement are negative. Past Medical History Past Medical History: Asthma, COPD, Diabetes Mellitus, Hearing Disorder / Deafness, Hyperlipidemia, Hypertension, Osteoarthritis (OA), Skin Disorder Additional Past Medical History / Comment(s): IDDM type II, arthritis in multiple joints, psoriasis, vitiligo, [place], hx of feeling lightheaded and falls., ? Hx of CVA- states left arm weak-unable to lift or reach far-unable to grasp with left hand , weakness left leg and states left foot drops down and catches on everything., states fall after Left Hip surgery with fx., uses wheelchair and cane., lower back and left hip pain. History of Any Multi-Drug Resistant Organisms: None Reported Past Surgical History: Joint Replacement Additional Past Surgical History / Comment(s): Bilateral hip replacements Past Anesthesia/Blood Transfusion Reactions: No Reported Reaction Additional Past Anesthesia/Blood Transfusion Reaction / Comment(s): pt states was unable to receive spinal tap with last surgery d/t arthritis in back, received general anesthetic" Past Psychological History: Anxiety Past Alcohol Use History: None Reported Past Drug Use History: Marijuana - Past Family History Mother Family Medical History: Eye Disorder, Hearing Disorder / Deafness Additional Family Medical History / Comment(s): Father is 90yrs old. He has glaucoma and is [place]. General Exam Limitations: no limitations General appearance: alert, in no apparent distress Head exam: Present: atraumatic, normocephalic Eye exam: Present: normal appearance, PERRL ENT exam: Present: mucous membranes dry Neck exam: Present: normal inspection. Absent: tenderness, meningismus Respiratory exam: Present: normal lung sounds bilaterally. Absent: respiratory distress, wheezes Cardiovascular Exam: Present: regular rate, normal rhythm GI/Abdominal exam: Present: soft. Absent: distended, tenderness, guarding, rebound Extremities exam: Present: normal inspection, normal capillary refill. Absent: pedal edema Neurological exam: Present: alert, oriented X3, CN II-XII intact. Absent: motor sensory deficit Psychiatric exam: Present: normal affect, normal mood Skin exam: Present: warm, dry, intact. Absent: cyanosis, diaphoretic Course Vital Signs 04/14/20 18:03 Temperature 98.2 F Pulse Rate 113 H Respiratory 16 Rate Blood Pressure 104/60 O2 Sat by Pulse 98 Oximetry EKG Findings - EKG Comments: EKG Findings:: EKG: Normal sinus rhythm, rate of 92, MN interval 140, QRS duration 80, QTC [address] segment elevation. Medical Decision Making - Medical Decision Making 64 presenting with generalized weakness, lightheadedness, multiple falls. Patient is very pale on initial exam, vital signs are stable. He's had diarrhea for the past several days, denies melena or bright red rectal bleeding. He had a fall with questionable head injury. Head CT is performed, shows severe sinusitis but no acute intracranial hemorrhage or mass effect. Chest x-ray, pelvis and lumbar spine x-rays are negative for any acute traumatic injury secondary to falls. He has normal white blood cell count, hemoglobin is 9.3 from a baseline of 13.6. There is concern for gastrointestinal bleeding or acute blood loss given the new onset dizziness, lightheadedness. Repeat hemoglobin has been ordered, patient is placed on a proton pump inhibitor. Case discussed with Dr. Barry who will admit. - Lab Data Result diagrams: 04/14/20 18:45 04/14/20 18:45 Lab Results 04/14/20 04/14/20 04/14/20 Range/Units 18:45 18:45 18:45 WBC 5.2 (3.8-10.6) k/uL RBC 2.28 L (4.30-5.90) m/uL Hgb 9.3 L (13.0-17.5) gm/dL Hct 26.4 L (39.0-53.0) % MCV 115.8 H (80.0-100.0) fL MCH 40.7 H (25.0-35.0) pg MCHC 35.1 (31.0-37.0) g/dL RDW 16.3 H (11.5-15.5) % Plt Count 223 (150-450) k/uL Neutrophils % (Manual) 66 % Lymphocytes % (Manual) 29 % Monocytes % (Manual) 5 % Neutrophils # (Manual) 3.43 (1.3-7.7) k/uL Lymphocytes # (Manual) 1.51 (1.0-4.8) k/uL Monocytes # (Manual) 0.26 (0-1.0) k/uL Nucleated RBCs 0 (0-0) /100 WBC Manual Slide Review Performed Polychromasia Present Anisocytosis Slight Anisocytosis (manual) Present Macrocytosis Marked A PT 10.2 (9.0-12.0) sec INR 1.0 (<1.2) APTT 22.0 (22.0-30.0) sec Sodium 138 (137-145) mmol/L Potassium 3.9 (3.5-5.1) mmol/L Chloride 104 (98-107) mmol/L Carbon Dioxide 28 (22-30) mmol/L Anion Gap 6 mmol/L BUN 11 (9-20) mg/dL Creatinine 0.50 L (0.66-1.25) mg/dL Est GFR (CKD-EPI)AfAm >90 (>60 ml/min/1.73 sqM) Est GFR (CKD-EPI)NonAf >90 (>60 ml/min/1.73 sqM) Glucose 187 H (74-99) mg/dL Plasma Lactic Acid Matty (0.7-2.0) mmol/L Calcium 9.1 (8.4-10.2) mg/dL Magnesium 2.0 (1.6-2.3) mg/dL Total Bilirubin 1.3 (0.2-1.3) mg/dL AST 28 (17-59) U/L ALT 19 (4-49) U/L Alkaline Phosphatase 43 (38-126) U/L Creatine Kinase 43 L (55-170) U/L Troponin I (0.000-0.034) ng/mL Total Protein 6.8 (6.3-8.2) g/dL Albumin 4.6 (3.5-5.0) g/dL Urine Color Urine Appearance (Clear) Urine pH (5.0-8.0) Ur Specific [place] (1.001-1.035) Urine Protein (Negative) Urine Glucose (UA) (Negative) Urine Ketones (Negative) Urine Blood (Negative) Urine Nitrite (Negative) Urine Bilirubin (Negative) Urine Urobilinogen (<2.0) mg/dL Ur Leukocyte Esterase (Negative) 04/14/20 04/14/20 04/14/20 Range/Units 18:45 18:45 20:02 WBC (3.8-10.6) k/uL RBC (4.30-5.90) m/uL Hgb (13.0-17.5) gm/dL Hct (39.0-53.0) % MCV (80.0-100.0) fL MCH (25.0-35.0) pg MCHC (31.0-37.0) g/dL RDW (11.5-15.5) % Plt Count (150-450) k/uL Neutrophils % (Manual) % Lymphocytes % (Manual) % Monocytes % (Manual) % Neutrophils # (Manual) (1.3-7.7) k/uL Lymphocytes # (Manual) (1.0-4.8) k/uL Monocytes # (Manual) (0-1.0) k/uL Nucleated RBCs (0-0) /100 WBC Manual Slide Review Polychromasia Anisocytosis Anisocytosis (manual) Macrocytosis PT (9.0-12.0) sec INR (<1.2) APTT (22.0-30.0) sec Sodium (137-145) mmol/L Potassium (3.5-5.1) mmol/L Chloride (98-107) mmol/L Carbon Dioxide (22-30) mmol/L Anion Gap mmol/L BUN (9-20) mg/dL Creatinine (0.66-1.25) mg/dL Est GFR (CKD-EPI)AfAm (>60 ml/min/1.73 sqM) Est GFR (CKD-EPI)NonAf (>60 ml/min/1.73 sqM) Glucose (74-99) mg/dL Plasma Lactic Acid Matty 1.3 (0.7-2.0) mmol/L Calcium (8.4-10.2) mg/dL Magnesium (1.6-2.3) mg/dL Total Bilirubin (0.2-1.3) mg/dL AST (17-59) U/L ALT (4-49) U/L Alkaline Phosphatase (38-126) U/L Creatine Kinase (55-170) U/L Troponin I <0.012 (0.000-0.034) ng/mL Total Protein (6.3-8.2) g/dL Albumin (3.5-5.0) g/dL Urine Color Yellow Urine Appearance Clear (Clear) Urine pH 6.0 (5.0-8.0) Ur Specific [place] 1.013 (1.001-1.035) Urine Protein Negative (Negative) Urine Glucose (UA) 2+ H (Negative) Urine Ketones Negative (Negative) Urine Blood Negative (Negative) Urine Nitrite Negative (Negative) Urine Bilirubin Negative (Negative) Urine Urobilinogen 2.0 (<2.0) mg/dL Ur Leukocyte Esterase Negative (Negative) Disposition Clinical Impression: Generalized weakness, Anemia Disposition: ADMITTED IP TO THIS [facility] Condition: Stable Is patient prescribed a controlled substance at d/c from ED?: No Referrals: Catherine Barry MD [Primary Care Provider] - 1-2 days Decision to Admit Reason: Admit from EC Decision Date: 04/14/20 Decision Time: 20:30
[2020-04-14 19:17] LABS: ALT 19 U/L (4-49); AST 28 U/L (17-59); African American GFR (CKD) >90 (>60 ml/min/1.73 sqM); Albumin 4.6 g/dL (3.5-5.0); Alkaline Phosphatase 43 U/L (38-126); Anion Gap 6 mmol/L; Blood Urea Nitrogen 11 mg/dL (9-20); Calcium 9.1 mg/dL (8.4-10.2); Carbon Dioxide 28 mmol/L (22-30); Chloride 104 mmol/L (98-107); Creatine Kinase 43 U/L (55-170); Glucose 187 mg/dL (74-99); Non-African American GFR(CKD) >90 (>60 ml/min/1.73 sqM); Potassium 3.9 mmol/L (3.5-5.1); Sodium 138 mmol/L (137-145); Total Bilirubin 1.3 mg/dL (0.2-1.3); Total Protein 6.8 g/dL (6.3-8.2)
[2020-04-14 19:20] LABS: Anisocytosis Slight; HCT 26.4 % (39.0-53.0); HGB 9.3 gm/dL (13.0-17.5); MCH 40.7 pg (25.0-35.0); MCHC 35.1 g/dL (31.0-37.0); MCV 115.8 fL (80.0-100.0); Macrocytosis Marked; Mean Platelet Volume 8.6; Platelet Count 223 k/uL (150-450); RBC 2.28 m/uL (4.30-5.90); RDW 16.3 % (11.5-15.5); WBC 5.2 k/uL (3.8-10.6)
--- NOTE | 2020-04-14 19:25 | CT ---
EXAMINATION TYPE: CT brain wo con DATE OF EXAM: 04/14/2020 COMPARISON: 10/17/2018 HISTORY: 64-year-old male dizziness, loss of balance TECHNIQUE: Examination was done in axial plane without intravenous contrast. Coronal and sagittal r econstructions performed. CT DLP: 1139.4 mGycm Automated exposure control for dose reduction was used. FINDINGS: There is no evidence of acute intracranial hemorrhage, acute ischemic changes, mass, mass-effect, or extra-axial fluid collection. There is no effacement of cerebral sulci or basal subarachnoid cister ns. There is no hydrocephalus. There is no midline shift. Spears-white matter distinction is preserv ed. Severe mucosal thickening throughout the right maxillary sinus. Moderate mucosal thickening scattered throughout the ethmoid air cells and right frontal sinus. Mastoid air cells well pneumatized. Orbits and globes are intact. IMPRESSION: 1. No acute intracranial abnormality seen. 2. Severe right maxillary sinus disease and moderate within the ethmoid air cells and right frontal s inus. Consider ENT referral for further management.
[2020-04-14 19:37] LABS: Prothrombin Time 10.2 sec (9.0-12.0)
[2020-04-14 19:43] LABS: Anisocytosis (M) Present; Lymphocytes # (M) 1.51 k/uL (1.0-4.8); Monocytes # (M) 0.26 k/uL (0-1.0); Neutrophils # (M) 3.43 k/uL (1.3-7.7); Neutrophils % (M) 66 %; Nucleated Red Blood Cells 0 /100 WBC (0-0); Polychromasia Present; Total Cells Counted 100
--- NOTE | 2020-04-14 19:48 | XR ---
EXAMINATION TYPE: XR chest 2V, XR pelvis AP view, XR lumbar spine 3 views DATE OF EXAM: 04/14/2020 COMPARISON: 05/14/2019, 01/09/2020 HISTORY: 64-year-old male with weakness and pain after fall FINDINGS: Chest: The cardiomediastinal silhouette, aorta, and pulmonary vasculature are within normal limits. Lungs an d pleural spaces are clear. Lumbar spine: 5 lumbar type vertebral bodies. Facet arthropathy lower lumbar spine. Mild endplate spondylosis throu ghout. Vertebral body heights are preserved and alignment is maintained. Pelvis: Partially visualized bilateral total hip arthroplasties. SI joints and pubic symphysis appear intact. The entirety of the femoral stem components are not visualized. No acute fracture of the visualized portions. IMPRESSION: 1. Chest: No acute cardiopulmonary process. 2. Lumbar spine: Mild degenerative disc disease. Facet arthropathy lower lumbar spine. No vertebral c ompression collapse or malalignment. 3. Pelvis: The patient's bilateral total hip arthroplasties are only partially visualized. The femora l stem components are incompletely seen. No acute osseous abnormality of the visualized portions.
[2020-04-14 20:10] LABS: Appearance,Urine Clear (Clear); Bilirubin,Urine Negative (Negative); Blood,Urine Negative (Negative); Color,Urine Yellow; Glucose,Urine (UA) 2+ (Negative); Ketones,Urine Negative (Negative); Leukocyte Esterase,Urine Negative (Negative); Nitrite,Urine Negative (Negative); Protein,Urine Negative (Negative); Specific Gravity,Urine 1.013 (1.001-1.035)
[2020-04-14] MEDS ORDERED: PANTOPRAZOLE 40 MG/10 ML VIAL IVP STA (20:20)
[2020-04-14] MEDS ORDERED: NALOXONE 0.4 MG/ML 1 ML VIAL IV PRN (20:24)
[2020-04-14] MEDS ORDERED: ACETAMINOPHEN TAB 325 MG TAB PO PRN (20:24)
[2020-04-14] MEDS: SODIUM CHLORIDE 0.9% 1,000 ML IV SCH (21:02)
[2020-04-14 21:33] LABS: Glucose,Whole Blood 103 mg/dL (75-99)
[2020-04-14] MEDS ORDERED: INSULIN DETEMIR (LEVEMIR) 100 UNIT/ML SYR SQ SCH (22:15)
[2020-04-14] MEDS: HYDROmorphone 0.5 MG/0.5 ML SYRINGE IVP PRN (23:15)
[2020-04-14 23:21] LABS: Anisocytosis Slight; Basophils % (A) 1 %; Eosinophils # (A) 0.1 k/uL (0-0.7); Eosinophils % (A) 2 %; HGB 8.9 gm/dL (13.0-17.5); Lymphocytes # (A) 2.1 k/uL (1.0-4.8); Lymphocytes % (A) 38 %; MCH 39.8 pg (25.0-35.0); MCHC 32.9 g/dL (31.0-37.0); MCV 120.7 fL (80.0-100.0); Macrocytosis Marked; Mean Platelet Volume 8.7; Monocytes # (A) 0.2 k/uL (0-1.0); Monocytes % (A) 4 %; Neutrophils % (A) 54 %; Platelet Count 218 k/uL (150-450); RBC 2.24 m/uL (4.30-5.90); RDW 16.2 % (11.5-15.5); WBC 5.5 k/uL (3.8-10.6)
[2020-04-15] MEDS: HYDROmorphone 0.5 MG/0.5 ML SYRINGE IVP PRN ×5 (02:36→17:11)
[2020-04-15 03:36] VITALS: RESP 16
[2020-04-15 05:59] LABS: Glucose,Whole Blood 120 mg/dL (75-99)
[2020-04-15] MEDS: INSULIN ASPART (NovoLOG) 100 UNIT/ML VIAL SQ SCH ×3 (06:01→17:10)
[2020-04-15 07:55] LABS: Anisocytosis Slight; Basophils % (A) 0 %; Eosinophils # (A) 0.2 k/uL (0-0.7); Eosinophils % (A) 3 %; HCT 24.7 % (39.0-53.0); HGB 8.6 gm/dL (13.0-17.5); Lymphocytes # (A) 2.1 k/uL (1.0-4.8); Lymphocytes % (A) 45 %; MCH 41.4 pg (25.0-35.0); MCHC 34.9 g/dL (31.0-37.0); MCV 118.6 fL (80.0-100.0); Macrocytosis Marked; Mean Platelet Volume 8.4; Monocytes # (A) 0.2 k/uL (0-1.0); Monocytes % (A) 4 %; Neutrophils # (A) 2.2 k/uL (1.3-7.7); Neutrophils % (A) 46 %; Platelet Count 208 k/uL (150-450); RBC 2.08 m/uL (4.30-5.90); RDW 16.7 % (11.5-15.5); WBC 4.8 k/uL (3.8-10.6)
[2020-04-15 08:00] LABS: ALT 15 U/L (4-49); AST 23 U/L (17-59); African American GFR (CKD) >90 (>60 ml/min/1.73 sqM); Albumin 3.5 g/dL (3.5-5.0); Alkaline Phosphatase 35 U/L (38-126); Anion Gap 3 mmol/L; Blood Urea Nitrogen 7 mg/dL (9-20); Calcium 8.2 mg/dL (8.4-10.2); Carbon Dioxide 28 mmol/L (22-30); Chloride 109 mmol/L (98-107); Glucose 100 mg/dL (74-99); Non-African American GFR(CKD) >90 (>60 ml/min/1.73 sqM); Potassium 3.9 mmol/L (3.5-5.1); Sodium 140 mmol/L (137-145); Total Bilirubin 1.3 mg/dL (0.2-1.3); Total Protein 5.5 g/dL (6.3-8.2)
[2020-04-15] MEDS ORDERED: PANTOPRAZOLE 40 MG/10 ML VIAL IVP SCH (09:00)
[2020-04-15 09:57] LABS: Glucose,Whole Blood 226 mg/dL (75-99)
[2020-04-15] MEDS: SODIUM CHLORIDE 0.9% 1,000 ML IV SCH (09:57)
[2020-04-15 11:50] LABS: Glucose,Whole Blood 209 mg/dL (75-99)
[2020-04-15 12:16] LABS: Reticulocyte % 1.8 % (0.5-2.0)
[2020-04-15 15:43] VITALS: BP 114/58; PULSE 87; TEMP 97.9
--- NOTE | 2020-04-15 16:51 | US ---
EXAMINATION TYPE: US carotid duplex BILAT DATE OF EXAM: 04/15/2020 COMPARISON: NONE CLINICAL HISTORY: dizziness. EXAM MEASUREMENTS: RIGHT: Peak Systolic Velocity (PSV) cm/sec ----- Right CCA: 101.6 ----- Right ICA: 94.4 ----- Right ECA: 110.4 ICA/CCA ratio: 0.9 RIGHT: End Diastole cm/sec ----- Right CCA: 33.3 ----- Right ICA: 34.8 ----- Right ECA: 18.8 LEFT: Peak Systolic Velocity (PSV) cm/sec ----- Left CCA: 87.1 ----- Left ICA: 113.2 ----- Left ECA: 90.0 ICA/CCA ratio: 1.3 LEFT: End Diastole cm/sec ----- Left CCA: 28.9 ----- Left ICA: 44.9 ----- Left ECA: 15.8 VERTEBRALS (direction of flow): Right Vertebral: Antegrade Left Vertebral: Antegrade Rhythm: Normal No elevated velocities, no significant stenosis. IMPRESSION: There is antegrade flow in the vertebral arteries. Images and measurements suggest less than 10% stenosis in both internal carotid arteries. Criteria for Assigning % of Stenosis / Diameter reduction (Estimation based on the indirect measurements of the internal carotid artery velocities (ICA PSV). 1. Normal (no stenosis)=ICA PSV < 125 cm/s: ratio < 2.0: ICA EDV<40 cm/s. 2. Less than 50% stenosis=ICA PSV < 125 cm/s: ratio < 2.0: ICA EDV<40 cm/s. 3. 50 to 69% stenosis=ICA PSV of 125 to 230 cm/s: ration 2.0 ? 4.0: ICA EDV 40-100 cm/s. 4. Greater than 70% stenosis to near occlusion= ICA PSV > 230 cm/s: ratio > 4.0: ICA EDV > 100 cm/s. 5. Near occlusion= ICA PSV velocities may be low or undetectable: variable ratio and ICA EDV. 6. Total occlusion=unable to detect flow.
[2020-04-15 16:52] LABS: Glucose,Whole Blood 228 mg/dL (75-99)
[2020-04-15] MEDS ORDERED: SODIUM FERRIC GLUCONAT-SUCROSE 125 MG in SODIUM CHLORIDE 0.9% 100 ML IVPB ONE (17:00)
[2020-04-15 18:12] LABS: % Iron Saturation 46.25 (15.00-50.00)
[2020-04-15 18:21] LABS: Ferritin 101.3 ng/mL (22.0-322.0)
[2020-04-15 18:22] LABS: Folate, Serum 17.9 ng/mL
--- NOTE | 2020-04-15 19:53 | P.HPIM ---
History of Present Illness H&P Date: 04/15/20 Boaz Reed, is a 64-year-old male who presented to [facility] emergency room with generalized weakness on multiple falls, he was evaluated in the emergency room and had evidence of severe anemia with hemoglobin of 8.9, he also had evidence of macrocytosis, [facility], gastroenterology consultation was requested, and hematology consultation was requested. Patient has a known history of qxq-zbsxnli-zhvioekub diabetes mellitus, history of hypertension, history of hyperlipidemia. Past Medical History Past Medical History: Asthma, COPD, CVA/TIA, Diabetes Mellitus, Hearing Disorder / Deafness, Hyperlipidemia, Hypertension, Osteoarthritis (OA), Skin Disorder Additional Past Medical History / Comment(s): IDDM type II, arthritis in multiple joints, psoriasis, vitiligo, [place], hx of feeling lightheaded and falls., ? Hx of CVA- states left arm weak-unable to lift or reach far-unable to grasp with left hand , weakness left leg and states left foot drops down and catches on everything., states fall after Left Hip surgery with fx., uses wheelchair and cane., lower back and left hip pain. History of Any Multi-Drug Resistant Organisms: None Reported Past Surgical History: Joint Replacement Additional Past Surgical History / Comment(s): Bilateral hip replacements Past Anesthesia/Blood Transfusion Reactions: No Reported Reaction Additional Past Anesthesia/Blood Transfusion Reaction / Comment(s): pt states was unable to receive spinal tap with last surgery d/t arthritis in back, received general anesthetic" Past Psychological History: Anxiety Additional Psychological History / Comment(s): Pt resides with his father who is 90yrs old. Smoking Status: Former smoker Past Alcohol Use History: None Reported Additional Past Alcohol Use History / Comment(s): QUIT SMOKING 1994, smoked less than PPD for 3 years. Past Drug Use History: Marijuana Additional Drug Use History / Comment(s): DIGESTS MARIJUANA IN COFFEE , USES EDIBLE MARIJUANA OR SMOKES MARIJUANA FOR ANXIETY. - Past Family History Mother Family Medical History: Eye Disorder, Hearing Disorder / Deafness Additional Family Medical History / Comment(s): Father is 90yrs old. He has glaucoma and is [place]. Medications and Allergies Home Medications Medication Instructions Recorded Confirmed Type Atorvastatin Calcium [Lipitor] 20 mg PO HS 02/03/14 04/15/20 History Insulin Detemir (Levemir) [Levemir] 30 unit SQ HS 02/03/14 04/15/20 History metFORMIN HCL [Glucophage] 500 mg PO BID 02/03/14 04/15/20 History lisinopriL [Prinivil] 20 mg PO DAILY 08/05/14 04/15/20 History hydroCHLOROthiazide [Hydrodiuril] 25 mg PO DAILY 04/23/19 04/15/20 History INSULIN ASPART (NovoLOG) [NovoLOG 20 unit SQ AC-TID 04/15/20 04/15/20 History (formulary)] Allergies Allergy/AdvReac Type Severity Reaction Status Date / Time No Known Allergies Allergy Verified 04/15/20 09:53 Physical Exam Vitals: Vital Signs Temp Pulse Pulse Resp BP BP Pulse Ox 04/15/20 11:25 98.4 F 84 16 115/63 98 04/15/20 10:00 106/71 04/15/20 08:00 97.8 F 93 16 132/76 98 04/15/20 03:35 98.3 F 79 16 111/67 97 04/15/20 00:00 83 17 123/60 96 04/14/20 21:11 98.2 F 80 18 126/74 98 04/14/20 20:50 98.4 F 81 16 134/60 96 04/14/20 20:06 98.0 F 75 18 114/62 99 04/14/20 18:03 98.2 F 113 H 16 104/60 98 Intake and Output 04/14/20 04/15/20 04/15/20 22:59 06:59 14:59 Intake Total 360 Output Total 900 200 Balance -900 160 Intake: Oral 360 Output: Urine 900 200 Other: Voiding Method Urinal Urinal # Voids 2 # Bowel Movements 1 Weight 83.915 kg 81.1 kg In general patient is alert and oriented 3 in no apparent distress HEENT head normocephalic and atraumatic Neck is supple no JVD no goiter no lymphadenopathy Chest exam reveals a few scattered rhonchi no wheezing Cardiac exam reveals regular heart sounds no gallops no murmurs Abdomen is soft nontender no organomegaly with normal bowel sounds Extremity exam reveals no edema no cyanosis or clubbing Neurological examination reveals no gross focal deficits Results CBC & Chem 7: 04/15/20 06:43 04/15/20 06:43 Labs: Abnormal Lab Results - Last 24 Hours (Table) 04/14/20 04/14/20 04/14/20 Range/Units 18:45 18:45 20:02 RBC 2.28 L (4.30-5.90) m/uL Hgb 9.3 L (13.0-17.5) gm/dL Hct 26.4 L (39.0-53.0) % MCV 115.8 H (80.0-100.0) fL MCH 40.7 H (25.0-35.0) pg RDW 16.3 H (11.5-15.5) % Macrocytosis Marked A Chloride (98-107) mmol/L BUN (9-20) mg/dL Creatinine 0.50 L (0.66-1.25) mg/dL Glucose 187 H (74-99) mg/dL POC Glucose (mg/dL) (75-99) mg/dL Calcium (8.4-10.2) mg/dL Alkaline Phosphatase (38-126) U/L Creatine Kinase 43 L (55-170) U/L Total Protein (6.3-8.2) g/dL Urine Glucose (UA) 2+ H (Negative) 04/14/20 04/14/20 04/15/20 Range/Units 21:32 23:00 05:59 RBC 2.24 L (4.30-5.90) m/uL Hgb 8.9 L (13.0-17.5) gm/dL Hct 27.0 L (39.0-53.0) % MCV 120.7 H (80.0-100.0) fL MCH 39.8 H (25.0-35.0) pg RDW 16.2 H (11.5-15.5) % Macrocytosis Marked A Chloride (98-107) mmol/L BUN (9-20) mg/dL Creatinine (0.66-1.25) mg/dL Glucose (74-99) mg/dL POC Glucose (mg/dL) 103 H 120 H (75-99) mg/dL Calcium (8.4-10.2) mg/dL Alkaline Phosphatase (38-126) U/L Creatine Kinase (55-170) U/L Total Protein (6.3-8.2) g/dL Urine Glucose (UA) (Negative) 04/15/20 04/15/20 04/15/20 Range/Units 06:43 06:43 09:56 RBC 2.08 L (4.30-5.90) m/uL Hgb 8.6 L (13.0-17.5) gm/dL Hct 24.7 L (39.0-53.0) % MCV 118.6 H (80.0-100.0) fL MCH 41.4 H (25.0-35.0) pg RDW 16.7 H (11.5-15.5) % Macrocytosis Marked A Chloride 109 H (98-107) mmol/L BUN 7 L (9-20) mg/dL Creatinine 0.48 L (0.66-1.25) mg/dL Glucose 100 H (74-99) mg/dL POC Glucose (mg/dL) 226 H (75-99) mg/dL Calcium 8.2 L (8.4-10.2) mg/dL Alkaline Phosphatase 35 L (38-126) U/L Creatine Kinase (55-170) U/L Total Protein 5.5 L (6.3-8.2) g/dL Urine Glucose (UA) (Negative) 04/15/20 Range/Units 11:48 RBC (4.30-5.90) m/uL Hgb (13.0-17.5) gm/dL Hct (39.0-53.0) % MCV (80.0-100.0) fL MCH (25.0-35.0) pg RDW (11.5-15.5) % Macrocytosis Chloride (98-107) mmol/L BUN (9-20) mg/dL Creatinine (0.66-1.25) mg/dL Glucose (74-99) mg/dL POC Glucose (mg/dL) 209 H (75-99) mg/dL Calcium (8.4-10.2) mg/dL Alkaline Phosphatase (38-126) U/L Creatine Kinase (55-170) U/L Total Protein (6.3-8.2) g/dL Urine Glucose (UA) (Negative) Thrombosis Risk Factor Assmnt - Choose All That Apply Any of the Below Risk Factors Present?: Yes Each Factor Represents 1 point: Abnormal pulmonary function (COPD), Medical pt on bed rest, Obesity (BMI >25) Other Risk Factors: Yes Each Risk Factor Represents 2 Points: Age 61-74 years Other congenital or acquired thrombophilia - If yes, enter type in comment: No Thrombosis Risk Factor Assessment Total Risk Factor Score: 5 Thrombosis Risk Factor Assessment Level: High Risk Assessment and Plan Plan: 1. Macrocytic anemia 2. Generalized weakness with multiple falls 3. Dizziness and presyncope At this time patient is admitted to telemetry floor Gastroenterology and hematology consultation were requested Serial CBCs were ordered Iron studies vitamin B12 and folate studies were ordered Echocardiogram and carotid Doppler were ordered Will follow closely
--- NOTE | 2020-04-15 19:57 | P.DS ---
Providers Date of admission: 04/14/20 20:24 Expected date of discharge: 04/15/20 Attending physician: Catherine Barry Consults: 04/14/20 20:25 Consult Physician Routine Consulting Provider: Joseph Mc Consult Reason/Comments: Anemia, concern for GI. Do you want consulting provider notified?: Yes 04/15/20 16:14 Consult Physician Routine Consulting Provider: Ilya Loja Consult Reason/Comments: anemia Do you want consulting provider notified?: Yes Primary care physician: Catherine Asha [facility] Course: Diagnosis on discharge: 1. Macrocytic anemia 2. Generalized weakness with multiple falls 3. Dizziness and presyncope 4. Evidence of vitamin B12 deficiency Hospital course: Boaz Reed, is a 64-year-old male who presented to [facility] emergency room with generalized weakness on multiple falls, he was evaluated in the emergency room and had evidence of severe anemia with hemoglobin of 8.9, he also had evidence of macrocytosis, he was admitted to telemetry floor for further evaluation and treatment, gastroenterology consultation was requested, and hematology consultation was requested. Patient has a known history of upg-vyxeaun-hyrzijqgg diabetes mellitus, history of hypertension, history of hyperlipidemia. Patient was evaluated in emergency room and admitted to medical floor, g astroenterology consultation requested patient was evaluated by Dr. Dean, he was advised to have EGD and colonoscopy, echocardiogram and carotid Doppler were ordered, carotid Doppler was done and did not reveal any evidence of significant stenosis in the carotid arteries, echocardiogram was not done, hematology consultation was not done. Patient decided to leave the hospital AGAINST MEDICAL ADVICE. Will attempt to contact patient and arrange for outpatient follow-up. Patient Condition at Discharge: Stable Plan - Discharge Summary Discharge Rx Participant: Yes New Discharge Prescriptions: No Action Insulin Detemir (Levemir) [Levemir] 30 unit SQ HS metFORMIN HCL [Glucophage] 500 mg PO BID Atorvastatin Calcium [Lipitor] 20 mg PO HS lisinopriL [Prinivil] 20 mg PO DAILY hydroCHLOROthiazide [Hydrodiuril] 25 mg PO DAILY INSULIN ASPART (NovoLOG) [NovoLOG (formulary)] 20 unit SQ AC-TID Discharge Medication List Atorvastatin Calcium [Lipitor] 20 mg PO HS 02/03/14 [History] Insulin Detemir (Levemir) [Levemir] 30 unit SQ HS 02/03/14 [History] metFORMIN HCL [Glucophage] 500 mg PO BID 02/03/14 [History] lisinopriL [Prinivil] 20 mg PO DAILY 08/05/14 [History] hydroCHLOROthiazide [Hydrodiuril] 25 mg PO DAILY 04/23/19 [History] INSULIN ASPART (NovoLOG) [NovoLOG (formulary)] 20 unit SQ AC-TID 04/15/20 [History] Follow up Appointment(s)/Referral(s): Tamika Dean MD [STAFF PHYSICIAN] - 1 Week Catherine Barry MD [Primary Care Provider] - 1-2 days Discharge Disposition: Left Against Medical Advice
--- NOTE | 2020-04-16 00:51 | CONS ---
CONSULTATION DATE OF DICTATION: April 15, 2020 REASON FOR CONSULTATION: Anemia and change in bowel habits. HISTORY OF PRESENT ILLNESS: The patient is a 64-year-old pleasant white male who came into the emergency room complaining of generalized weakness, not feeling well, some altered bowel movements for the last 3 or 4 days duration. In the emergency room, he was noted to have a hemoglobin of 8.9 g/dL and hence we are consulted in regards to this issue. The patient denies any nausea, vomiting, rectal bleeding or melena. No prior history of EGD or colonoscopy in the past. He denies any peptic ulcer disease. Denies any recent NSAID use. He has been having loose bowel movements, which are 3 to 4 a day. However, this morning he said that the bowel movements are normal in consistency. He states that he has been under stress taking care of elderly father. PAST MEDICAL HISTORY: Significant for asthma, COPD, CVA, diabetes mellitus, hypertension, hyperlipidemia, degenerative joint disease. PAST SURGICAL HISTORY: Bilateral hip replacements. SOCIAL HISTORY: Quit smoking 3 years ago. No alcohol use. MEDICATIONS: Medications at home include Lipitor, Levemir, Glucophage, Prinivil, HydroDIURIL, NovoLog. ALLERGIES: None. SOCIAL HISTORY: No alcohol use. Former smoker. FAMILY HISTORY: Mother deafness and eye disorder. Father is currently living and 90 with glaucoma. REVIEW OF SYSTEMS: CARDIOPULMONARY: He denies any chest pain or shortness of breath. GENITOURINARY: No dysuria or hematuria. MUSCULOSKELETAL: Unremarkable. SKIN: Unremarkable. ENDOCRINE: Unremarkable. PSYCHIATRIC: Unremarkable. NEUROLOGY: Unremarkable. ENT/VISION: Unremarkable. CONSTITUTIONAL: No recent weight loss. No fever, chills, night sweats. PHYSICAL EXAMINATION: He appears comfortable. No apparent distress. VITAL SIGNS: Stable. Blood pressure is 133/44, pulse rate 88 per minute and afebrile. HEENT EXAMINATION: Unremarkable. Conjunctivae pink. Sclerae anicteric. Oral cavity, no lesions. NECK: No JVD or lymph node enlargement. CHEST: Clear to auscultation HEART: Regular rate and rhythm. ABDOMEN: Soft. It was nontender, nondistended. Bowel sounds are positive. No organomegaly. EXTREMITIES: No pedal edema. SKIN: No rashes. NEURO: He is alert and oriented x3. No focal deficits. LABS: WBC 4.8, hemoglobin 8.6, platelets 208, MCV is 118.6. AST, ALT normal. T bilirubin and alkaline phosphatase are within normal limits. Serum iron 111, TIBC 240, iron saturation 46%. Serum ferritin is 101. Vitamin B12 is 77 and folate is 17.9. IMPRESSION: 1. Macrocytic anemia and iron not consistent with iron deficiency anemia. His vitamin B12 level is low consistent with vitamin B12 deficiency. 2. Altered bowel movements with intermittent diarrhea for the last few days which appears to be resolved. Patient never had a colonoscopy in the past. 3. Generalized weakness and fatigue. RECOMMENDATIONS: 1. Patient wants to go home at this time. I hence suggested that his diet be advanced as tolerated. 2. Discussed with him about endoscopy intervention especially a colonoscopy because of altered bowel movements, but he wants to have this done on an outpatient basis. 3. In regard to the vitamin B12 deficiency anemia, recommend replacing vitamin B12 at the present time. 4. Patient was advised to follow up in office in 2 weeks following discharge from the hospital. Thank you for this consultation. MMKARENL / IJN: [id number] /
== END 2020-04-15 18:41 | disposition left against medical advice (07) | DRG 812 ==
LOC: EC 17:56 → 3SCARD 20:24
PROVIDERS: ADMIT Internal Medicine; ATTEND Internal Medicine
DX: D53.9 Nutritional anemia, unspecified (principal); I69.954 Hemiplegia and hemiparesis following unspecified cerebrovascular disease affecting left non-dominant side; D51.3 Other dietary vitamin B12 deficiency anemia; E11.9 Type 2 diabetes mellitus without complications; E78.5 Hyperlipidemia, unspecified; F41.9 Anxiety disorder, unspecified; H91.90 Unspecified hearing loss, unspecified ear; I10 Essential (primary) hypertension; J44.9 Chronic obstructive pulmonary disease, unspecified; R29.6 Repeated falls; L40.9 Psoriasis, unspecified; L80 Vitiligo; J32.9 Chronic sinusitis, unspecified; M15.9 Polyosteoarthritis, unspecified; R42 Dizziness and giddiness; R55 Syncope and collapse; R19.7 Diarrhea, unspecified; Z79.4 Long term (current) use of insulin; Z79.899 Other long term (current) drug therapy; Z96.643 Presence of artificial hip joint, bilateral; Z87.891 Personal history of nicotine dependence; W19.XXXA Unspecified fall, initial encounter; Z83.52 Family history of ear disorders; Z83.511 Family history of glaucoma; Z83.518 Family history of other specified eye disorder
CPT/HCPCS: 36415; 70450; 71046; 72100; 72170; 80053; 81003; 82550; 82607; 82728; 82746; 83540; 83550; 83605; 83735; 84484; 85025; 85045; 85610; 85730; 93005; 93880; 96361; 96374; 96375; 99285

== ENCOUNTER 2020-04-16 02:07 | Inpatient (IN) | payer MEDICARE, OTHER ==
[2020-04-16] MEDS ORDERED: SODIUM CHLORIDE 0.9% 1,000 ML IV STA (02:33)
[2020-04-16] MEDS ORDERED: NALOXONE 0.4 MG/ML 1 ML VIAL IV PRN (02:35)
--- NOTE | 2020-04-16 02:35 | ED ---
General Adult HPI - General Chief complaint: Dizziness Stated complaint: dizziness Time Seen by Provider: 04/16/20 02:17 Source: patient Mode of arrival: wheelchair Limitations: no limitations - History of Present Illness Initial comments: Boaz is a 64-year-old male who was admitted to the hospital 2 days ago for generalized weakness, multiple falls at home, macrocytic anemia. During admission there is a plan for evaluation by GI and a consult to hematology. Patient reports that yesterday morning he was frustrated with being hospitalized he was feeling better he decided to sign out AMA. Patient reports he went home he was not feeling well, he did not take any of his home medications including insulin. He states that this evening he attempted take a shower but became very lightheaded began seeing stars and thought he was going to pass out at which time he decided to return to the hospital and consent to admission for further evaluation by GI and hematology. Patient denies any chest pain palpitations or shortness breath. - Related Data Home Medications Medication Instructions Recorded Confirmed Atorvastatin Calcium [Lipitor] 20 mg PO HS 02/03/14 04/15/20 Insulin Detemir (Levemir) [Levemir] 30 unit SQ HS 02/03/14 04/15/20 metFORMIN HCL [Glucophage] 500 mg PO BID 02/03/14 04/15/20 lisinopriL [Prinivil] 20 mg PO DAILY 08/05/14 04/15/20 hydroCHLOROthiazide [Hydrodiuril] 25 mg PO DAILY 04/23/19 04/15/20 INSULIN ASPART (NovoLOG) [NovoLOG 20 unit SQ AC-TID 04/15/20 04/15/20 (formulary)] Allergies Allergy/AdvReac Type Severity Reaction Status Date / Time No Known Allergies Allergy Verified 04/15/20 09:53 Review of Systems ROS Statement: Those systems with pertinent positive or pertinent negative responses have been documented in the HPI. ROS Other: All systems not noted in ROS Statement are negative. Past Medical History Past Medical History: Asthma, COPD, CVA/TIA, Diabetes Mellitus, Hearing Disorder / Deafness, Hyperlipidemia, Hypertension, Osteoarthritis (OA), Skin Disorder Additional Past Medical History / Comment(s): IDDM type II, arthritis in multiple joints, psoriasis, vitiligo, [place], hx of feeling lightheaded and falls., ? Hx of CVA- states left arm weak-unable to lift or reach far-unable to grasp with left hand , weakness left leg and states left foot drops down and catches on everything., states fall after Left Hip surgery with fx., uses wheelchair and cane., lower back and left hip pain. History of Any Multi-Drug Resistant Organisms: None Reported Past Surgical History: Joint Replacement Additional Past Surgical History / Comment(s): Bilateral hip replacements Past Anesthesia/Blood Transfusion Reactions: No Reported Reaction Additional Past Anesthesia/Blood Transfusion Reaction / Comment(s): pt states was unable to receive spinal tap with last surgery d/t arthritis in back, received general anesthetic" Past Psychological History: Anxiety Smoking Status: Former smoker Past Alcohol Use History: None Reported Past Drug Use History: Marijuana - Past Family History Mother Family Medical History: Eye Disorder, Hearing Disorder / Deafness Additional Family Medical History / Comment(s): Father is 90yrs old. He has glaucoma and is [place]. General Exam - General Exam Comments Initial Comments: Physical Exam GENERAL: Patient is very pale HENT: Normocephalic, Atraumatic. EYES: PERRL, EOMI Conjunctival pallor PULMONARY: Unlabored respirations. CARDIOVASCULAR: RRR Warm and well perfused extremities ABDOMEN: Non-distended SKIN: Vitiligo, pale color : Deferred NEUROLOGIC: Alert and oriented Normal speech MUSCULOSKELETAL: Moving all extremities with no apparent injury PSYCHIATRIC: No SI/HI Limitations: no limitations Course Vital Signs 04/16/20 02:17 Temperature 97.5 F L Pulse Rate 85 Respiratory 19 Rate Blood Pressure 130/77 O2 Sat by Pulse 99 Oximetry EKG Findings - EKG Comments: EKG Findings:: EKG was obtained due to near-syncope, EKG was obtained at 2:22 AM, rate is 83 rhythm is sinus normal axis, normal intervals, CA 156, QRS 84, QTC 432. No acute ST elevations or depressions no evidence of acute ischemia or infarction. Medical Decision Making - Medical Decision Making She was seen and evaluated history was obtained from patient medical record History and physical exam concerning for anemia with near-syncope Labs were repeated Patient care was discussed primary care doctor Dr. Barry who agrees to readmit the patient with consults to Dr. Dean gastroenterology and Dr. Loja hematology - Lab Data Result diagrams: 04/16/20 02:41 04/16/20 02:41 Disposition Clinical Impression: Orthostatic hypotension, Anemia, Generalized weakness Disposition: ADMITTED IP TO THIS HOSP Condition: Serious
[2020-04-16 02:52] LABS: Anisocytosis Slight; Basophils % (A) 0 %; Eosinophils # (A) 0.1 k/uL (0-0.7); Eosinophils % (A) 2 %; HCT 26.1 % (39.0-53.0); Lymphocytes # (A) 1.4 k/uL (1.0-4.8); Lymphocytes % (A) 26 %; MCH 40.6 pg (25.0-35.0); MCHC 34.6 g/dL (31.0-37.0); MCV 117.5 fL (80.0-100.0); Mean Platelet Volume 8.5; Monocytes # (A) 0.2 k/uL (0-1.0); Monocytes % (A) 4 %; Neutrophils # (A) 3.6 k/uL (1.3-7.7); Neutrophils % (A) 67 %; Platelet Count 232 k/uL (150-450); RBC 2.22 m/uL (4.30-5.90); WBC 5.4 k/uL (3.8-10.6)
[2020-04-16 02:57] LABS: Macrocytosis Marked
[2020-04-16 03:00] LABS: ALT 17 U/L (4-49); AST 26 U/L (17-59); African American GFR (CKD) >90 (>60 ml/min/1.73 sqM); Albumin 4.4 g/dL (3.5-5.0); Alkaline Phosphatase 44 U/L (38-126); Anion Gap 7 mmol/L; Blood Urea Nitrogen 9 mg/dL (9-20); Calcium 9.2 mg/dL (8.4-10.2); Carbon Dioxide 26 mmol/L (22-30); Chloride 105 mmol/L (98-107); Glucose 201 mg/dL (74-99); Non-African American GFR(CKD) >90 (>60 ml/min/1.73 sqM); Potassium 3.8 mmol/L (3.5-5.1); Sodium 138 mmol/L (137-145); Total Bilirubin 1.5 mg/dL (0.2-1.3); Total Protein 6.6 g/dL (6.3-8.2)
[2020-04-16 03:03] LABS: Partial Thromboplastin Time 24.1 sec (22.0-30.0); Prothrombin Time 10.6 sec (9.0-12.0)
[2020-04-16 03:20] LABS: Glucose,Whole Blood 220 mg/dL (75-99)
[2020-04-16 07:42] VITALS: RESP 18
[2020-04-16] MEDS: INSULIN ASPART (NovoLOG) 100 UNIT/ML VIAL SQ SCH ×7 (08:26→21:22)
[2020-04-16 11:04] LABS: Glucose,Whole Blood 176 mg/dL (75-99)
--- NOTE | 2020-04-16 12:09 | P.CONS ---
History of Present Illness - Reason for Consult Consult date: 04/16/20 macrocytic anemia Requesting physician: Kenya Rod - Chief Complaint dizziness, falls - History of Present Illness Mr. Reed is a very pleasant 64-year-old male who came to the emergency department with complaints of dizziness, near syncopy and falls. He was just here several days ago for similar symptoms. Labs were evaluated which showed macrocytic anemia, which on chart review, has been present to varying degrees over the last several years. Pt states he has never required a transfusion. He did receive iron on his previous visit, 04/15. He denies any bleeding, dysphagia, abdominal pain, acute changes in bowel habits, EtOH history, or hepatitis. He is positive for weight loss, psoriasis-currently only been treated with light therapy, no immunotherapies-he has been on metformin for quite a few years. He states that he was told that due to his chronic nasal spray use he has a "spot on the brain", he also notices that using the nasal sp ray can make him dizzy. Patient has never had a colonoscopy. Labs show increased MCV of 117, increased RDW, hemoglobin is 9, bilirubin 1.5. Chart review from previous visit-did check that the iron studies were done prior to iron infusion. Most notable is a B12 level of 77. Review of Systems 14 point review of systems is negative except as stated in HPI Past Medical History Past Medical History: Asthma, COPD, CVA/TIA, Diabetes Mellitus, Hearing Disorder / Deafness, Hyperlipidemia, Hypertension, Osteoarthritis (OA), Skin Disorder Additional Past Medical History / Comment(s): IDDM type II, arthritis in multiple joints, psoriasis, vitiligo, [place], hx of feeling lightheaded and falls., ? Hx of CVA- states left arm weak-unable to lift or reach far-unable to grasp with left hand , weakness left leg and states left foot drops down and catches on everything., states fall after Left Hip surgery with fx., uses wheelchair and cane., lower back and left hip pain. History of Any Multi-Drug Resistant Organisms: None Reported Past Surgical History: Joint Replacement Additional Past Surgical History / Comment(s): Bilateral hip replacements Past Anesthesia/Blood Transfusion Reactions: No Reported Reaction Additional Past Anesthesia/Blood Transfusion Reaction / Comm: pt states was unable to receive spinal tap with last surgery d/t arthritis in back, received general anesthetic" Past Psychological History: No Psychological Hx Reported Smoking Status: Former smoker Past Alcohol Use History: None Reported Past Drug Use History: None Reported - Past Family History Mother Family Medical History: Eye Disorder, Hearing Disorder / Deafness Additional Family Medical History / Comment(s): Father is 90yrs old. He has glaucoma and is [place]. Medications and Allergies Home Medications Medication Instructions Recorded Confirmed Type Atorvastatin Calcium [Lipitor] 20 mg PO HS 02/03/14 04/16/20 History Insulin Detemir (Levemir) [Levemir] 30 unit SQ HS 02/03/14 04/16/20 History metFORMIN HCL [Glucophage] 500 mg PO BID 02/03/14 04/16/20 History lisinopriL [Prinivil] 20 mg PO DAILY 08/05/14 04/16/20 History hydroCHLOROthiazide [Hydrodiuril] 25 mg PO DAILY 04/23/19 04/16/20 History INSULIN ASPART (NovoLOG) [NovoLOG 20 unit SQ AC-TID 04/15/20 04/16/20 History (formulary)] HYDROcodone/APAP 7.5-325MG [[place] 1 tab PO DAILY PRN 04/16/20 04/16/20 History 7.5-325] Allergies Allergy/AdvReac Type Severity Reaction Status Date / Time No Known Allergies Allergy Verified 04/16/20 07:11 Physical Exam Vitals: Vital Signs Temp Pulse Pulse Resp BP BP Pulse Ox 04/16/20 07:00 99.0 F 77 18 122/72 98 04/16/20 06:40 97.8 F 86 18 164/89 98 04/16/20 05:00 85 18 150/80 98 04/16/20 04:00 86 18 152/80 98 04/16/20 03:24 86 17 141/99 98 04/16/20 02:24 89 19 154/78 97 04/16/20 02:17 97.5 F L 85 19 130/77 99 Intake and Output 04/15/20 04/16/20 04/16/20 22:59 06:59 14:59 Other: Voiding Method Urinal Weight 84.822 kg 84.822 kg - Constitutional General appearance: average body habitus, cooperative, no acute distress - EENT Eyes: anicteric sclerae, EOMI ENT: hearing grossly normal, normal oropharynx - Neck Neck: no lymphadenopathy - Respiratory Respiratory: bilateral: CTA - Cardiovascular Rhythm: regular Heart sounds: normal: S1, S2 Abnormal Heart Sounds: no systolic murmur, no diastolic murmur, no rub, no S3 Gallop, no S4 Gallop, no click, no other leg Peripheral Edema: bilateral: None - Gastrointestinal General gastrointestinal: no absent bowel sounds, no decreased bowel sounds, no distended, no hepatomegaly, no hyperactive bowel sounds, normal bowel sounds, no organomegaly, no rigid, no scaphoid, soft, no splenomegaly, no tenderness, no umbilical hernia, no ventral hernia - Integumentary psoriasis Integumentary: pale - Neurologic Neurologic: CNII-XII intact - Musculoskeletal Musculoskeletal: strength equal bilaterally - Psychiatric Psychiatric: A&O x's 3, appropriate affect, intact judgment & insight Results CBC & Chem 7: 04/16/20 02:41 04/16/20 02:41 Labs: Abnormal Lab Results - Last 24 Hours (Table) 04/16/20 04/16/20 04/16/20 Range/Units 02:41 02:41 03:16 RBC 2.22 L (4.30-5.90) m/uL Hgb 9.0 L (13.0-17.5) gm/dL Hct 26.1 L (39.0-53.0) % MCV 117.5 H (80.0-100.0) fL MCH 40.6 H (25.0-35.0) pg RDW 17.0 H (11.5-15.5) % Macrocytosis Marked A Creatinine 0.56 L (0.66-1.25) mg/dL Glucose 201 H (74-99) mg/dL POC Glucose (mg/dL) 220 H (75-99) mg/dL Total Bilirubin 1.5 H (0.2-1.3) mg/dL 04/16/20 Range/Units 11:02 RBC (4.30-5.90) m/uL Hgb (13.0-17.5) gm/dL Hct (39.0-53.0) % MCV (80.0-100.0) fL MCH (25.0-35.0) pg RDW (11.5-15.5) % Macrocytosis Creatinine (0.66-1.25) mg/dL Glucose (74-99) mg/dL POC Glucose (mg/dL) 176 H (75-99) mg/dL Total Bilirubin (0.2-1.3) mg/dL Assessment and Plan (1) Macrocytic anemia with vitamin B12 deficiency Narrative/Plan: Last visit chart reviewed in detail. Med list reviewed, metformin only drug that can be associated with functional B12 deficit. No Hx of biologics/immunotherapy for psoriasis. Parenteral B12 supplementation ordered. Recommended treatment course would be 1000mcg IM daily 5, weekly 4, every other week 2 then recheck B12 levels. If adequate, patient can have monthly. Other labs ordered to further work up anemia. Recommendation would also be for endoscopy as patient has never had those age- related cancer screenings. All of the above discussed with pt. Will f/u as info becomes available Current Visit: Yes Status: Acute Priority: Medium Code(s): D51.9 - VITAMIN B12 DEFICIENCY ANEMIA, UNSPECIFIED SNOMED Code(s): 76118080 Plan: Doctor attests: I performed a history and physical examination of this patient, developed impression and plan of care, discussed with dictator. I agree with dictators note, documented as a scribe.
[2020-04-16] MEDS: CYANOCOBALAMIN 1,000 MCG/ML 1 ML VIAL IM SCH (13:21)
[2020-04-16] MEDS ORDERED: HYDROcodone/APAP 7.5-325MG 1 EACH TAB PO PRN (15:58)
[2020-04-16 17:05] LABS: Protein, Total 6.5 g/dL (6.2-8.2)
[2020-04-16 17:08] LABS: Glucose,Whole Blood 159 mg/dL (75-99)
--- NOTE | 2020-04-16 17:13 | ECHOF ---
Referral Reason:dizziness MEASUREMENTS -------- HEIGHT: 152.4 cm WEIGHT: 84.8 kg BP: 164/89 RVIDd: 2.8 cm (< 3.3) IVSd: 1.0 cm (0.6 - 1.1) LVIDd: 4.5 cm (3.9 - 5.3) LVPWd: 1.3 cm (0.6 - 1.1) IVSs: 1.2 cm LVIDs: 3.7 cm LVPWs: 1.3 cm LA Diam: 5.1 cm (2.7 - 3.8) LAESV Index (A-L): 39.40 ml/m Ao Diam: 2.7 cm (2.0 - 3.7) AV Cusp: 1.9 cm (1.5 - 2.6) MV EXCURSION: 14.924 mm (> 18.000) MV EF SLOPE: 110 mm/s (70 - 150) EPSS: 0.4 cm MV E Huan: 0.89 m/s MV DecT: 223 ms MV A Huan: 1.01 m/s MV E/A Ratio: 0.88 RAP: 5.00 mmHg RVSP: 29.15 mmHg FINDINGS -------- Sinus rhythm. This was a technically good study. LV size, wall thickness and systolic function are normal, with an EF greater than 55%. The left callie tricular size is normal. The diastolic filling pattern is normal for the age of the patient 10.13. The right ventricle is normal in size. LA is midly dilated 29-33ml/m2. The right atrial size is normal. The aortic valve is trileaflet, and appears structurally normal. No aortic stenosis or regurgitation. Mild mitral regurgitation is present. Mild tricuspid regurgitation present. Right ventricular systolic pressure is normal at < 35 mmHg. There is no pulmonic regurgitation present. The aortic root size is normal. There is no pericardial effusion. CONCLUSIONS -------- 1. LV size, wall thickness and systolic function are normal, with an EF greater than 55%. 2. The left ventricular size is normal. 3. The diastolic filling pattern is normal for the age of the patient 10.13 4. The right ventricle is normal in size. 5. The right atrial size is normal. 6. Mild mitral regurgitation is present. 7. Mild tricuspid regurgitation present. 8. There is no pulmonic regurgitation present. 9. There is no pericardial effusion. OCEANOGRAPHY TEACHER: Adele Marroquin RDCS
--- NOTE | 2020-04-16 17:51 | P.HPIM ---
History of Present Illness H&P Date: 04/16/20 Boaz Reed is a 64-year-old male who presented to [facility] emergency room with generalized weakness, dizziness, and multiple falls he was evaluated in emergency room and was found to have anemia with hemoglobin of 8.9 he was admitted to medical floor gastroenterology consultation was requested patient was advised to have EGD and colonoscopy however patient decided to leave the hospital AGAINST MEDICAL ADVICE. Patient went home he felt very dizzy again and decided to come back to the emergency room he was readmitted to the hospital his hemoglobin is 9 on presentation there is no fever or chills no headache or dizziness no chest pain no shortness of breath no cough no nausea or vomiting no abdominal pain no diarrhea and no burning was urination no frequency or urgency and no hematuria. Patient has evidence of macrocytic anemia he had evidence of vitamin B12 deficiency gastroenterology consultation and hematology consultation were requested. Echocardiogram was ordered and cardiology consultation requested in regard to severe dizziness. Past Medical History Past Medical History: Asthma, COPD, CVA/TIA, Diabetes Mellitus, Hearing Disorder / Deafness, Hyperlipidemia, Hypertension, Osteoarthritis (OA), Skin Disorder Additional Past Medical History / Comment(s): IDDM type II, arthritis in multiple joints, psoriasis, vitiligo, [place], hx of feeling lightheaded and falls., ? Hx of CVA- states left arm weak-unable to lift or reach far-unable to grasp with left hand , weakness left leg and states left foot drops down and catches on everything., states fall after Left Hip surgery with fx., uses wheelchair and cane., lower back and left hip pain. History of Any Multi-Drug Resistant Organisms: None Reported Past Surgical History: Joint Replacement Additional Past Surgical History / Comment(s): Bilateral hip replacements Past Anesthesia/Blood Transfusion Reactions: No Reported Reaction Additional Past Anesthesia/Blood Transfusion Reaction / Comment(s): pt states was unable to receive spinal tap with last surgery d/t arthritis in back, received general anesthetic" Past Psychological History: No Psychological Hx Reported Smoking Status: Former smoker Past Alcohol Use History: None Reported Past Drug Use History: None Reported - Past Family History Mother Family Medical History: Eye Disorder, Hearing Disorder / Deafness Additional Family Medical History / Comment(s): Father is 90yrs old. He has glaucoma and is [place]. Medications and Allergies Home Medications Medication Instructions Recorded Confirmed Type Atorvastatin Calcium [Lipitor] 20 mg PO HS 02/03/14 04/16/20 History Insulin Detemir (Levemir) [Levemir] 30 unit SQ HS 02/03/14 04/16/20 History metFORMIN HCL [Glucophage] 500 mg PO BID 02/03/14 04/16/20 History lisinopriL [Prinivil] 20 mg PO DAILY 08/05/14 04/16/20 History hydroCHLOROthiazide [Hydrodiuril] 25 mg PO DAILY 04/23/19 04/16/20 History INSULIN ASPART (NovoLOG) [NovoLOG 20 unit SQ AC-TID 04/15/20 04/16/20 History (formulary)] HYDROcodone/APAP 7.5-325MG [[place] 1 tab PO DAILY PRN 04/16/20 04/16/20 History 7.5-325] Allergies Allergy/AdvReac Type Severity Reaction Status Date / Time No Known Allergies Allergy Verified 04/16/20 07:11 Physical Exam Vitals: Vital Signs Temp Pulse Pulse Resp BP BP Pulse Ox 04/16/20 15:27 98 F 85 18 146/81 100 04/16/20 07:00 99.0 F 77 18 122/72 98 04/16/20 06:40 97.8 F 86 18 164/89 98 04/16/20 05:00 85 18 150/80 98 04/16/20 04:00 86 18 152/80 98 04/16/20 03:24 86 17 141/99 98 04/16/20 02:24 89 19 154/78 97 04/16/20 02:17 97.5 F L 85 19 130/77 99 Intake and Output 04/16/20 04/16/20 04/16/20 06:59 14:59 22:59 Other: Voiding Method Urinal Weight 84.822 kg 84.822 kg In general patient is alert and oriented 3 in no apparent distress. HEENT head normocephalic and atraumatic Neck is supple no JVD no goiter no lymphadenopathy Chest exam reveals a few scattered rhonchi no wheezing Cardiac exam reveals regular heart sounds S1 and S2 no gallops no murmurs Abdomen is soft nontender no organomegaly with normal bowel sounds Extremity exam reveals no edema no cyanosis or clubbing Neurological examination reveals no gross focal deficit Results CBC & Chem 7: 04/16/20 02:41 04/16/20 02:41 Labs: Abnormal Lab Results - Last 24 Hours (Table) 04/16/20 04/16/20 04/16/20 Range/Units 02:41 02:41 03:16 RBC 2.22 L (4.30-5.90) m/uL Hgb 9.0 L (13.0-17.5) gm/dL Hct 26.1 L (39.0-53.0) % MCV 117.5 H (80.0-100.0) fL MCH 40.6 H (25.0-35.0) pg RDW 17.0 H (11.5-15.5) % Macrocytosis Marked A Creatinine 0.56 L (0.66-1.25) mg/dL Glucose 201 H (74-99) mg/dL POC Glucose (mg/dL) 220 H (75-99) mg/dL Total Bilirubin 1.5 H (0.2-1.3) mg/dL 04/16/20 04/16/20 Range/Units 11:02 16:56 RBC (4.30-5.90) m/uL Hgb (13.0-17.5) gm/dL Hct (39.0-53.0) % MCV (80.0-100.0) fL MCH (25.0-35.0) pg RDW (11.5-15.5) % Macrocytosis Creatinine (0.66-1.25) mg/dL Glucose (74-99) mg/dL POC Glucose (mg/dL) 176 H 159 H (75-99) mg/dL Total Bilirubin (0.2-1.3) mg/dL Thrombosis Risk Factor Assmnt - Choose All That Apply Each Factor Represents 1 point: Medical pt on bed rest, Obesity (BMI >25) Other Risk Factors: No Other congenital or acquired thrombophilia - If yes, enter type in comment: No Thrombosis Risk Factor Assessment Total Risk Factor Score: 2 Thrombosis Risk Factor Assessment Level: Low Risk Assessment and Plan Plan: 1. Episodes of severe dizziness, with recent multiple falls, cause is unclear, carotid Doppler done prior to patient leaving the hospital and was within normal limits, echocardiogram and cardiology consultation requested 2. Anemia patient was advised to have EGD and colonoscopy to rule out malignancy 3. Vitamin B12 deficiency, patient will receive vitamin B12 supplements Medication and labs were reviewed Consultation for hematology, gastroenterology, and cardiology initiated Echocardiogram ordered Will follow closely
[2020-04-16 20:02] LABS: Glucose,Whole Blood 244 mg/dL (75-99)
[2020-04-16] MEDS ORDERED: ATORVASTATIN 20 MG TAB PO SCH (21:00)
[2020-04-16] MEDS: metFORMIN 500 MG TAB PO SCH (21:22)
--- NOTE | 2020-04-16 22:10 | CONS ---
CONSULTATION DATE OF DICTATION: 04/16/2020 REASON FOR CONSULTATION: Anemia and fatigue, weakness and dizziness. HISTORY OF PRESENT ILLNESS: The patient is a 64-year-old pleasant white male who was seen on consultation yesterday at [facility] for evaluation of altered bowel movements, fatigue, weakness and anemia. He was recommended to have an EGD and colonoscopy; however, the patient signed out AGAINST MEDICAL ADVICE and went home. A few hours later he became dizzy. He came back to the emergency room and is now admitted to the hospital once again for further evaluation. We are consulted for possible EGD and colonoscopy during this hospitalization. The patient denies any abdominal pain. He reports no nausea, vomiting. His repeat hemoglobin was 9 g/dL. He reports no fever, chills, night sweats. He did have a workup done yesterday and he was noted to have decreased vitamin B12 at 77. Rest of his labs were normal. PAST MEDICAL HISTORY: His past medical history is significant for asthma, COPD, TIA, diabetes mellitus, hypertension, hearing disorder, degenerative joint disease. PAST SURGICAL HISTORY: Bilateral hip replacements. SOCIAL HISTORY: No smoking. No alcohol use. FAMILY HISTORY: Unremarkable. MEDICATIONS: Medications at home include Lipitor, Levemir, Glucophage, Prinivil, HydroDIURIL, [place] and NovoLog. ALLERGIES: NONE. SOCIAL HISTORY: No smoking. No alcohol use. FAMILY HISTORY: Mother had hearing disorder. Father had glaucoma. REVIEW OF SYSTEMS+: CARDIOPULMONARY: No chest pain or shortness of breath. GENITOURINARY: No dysuria or hematuria. MUSCULOSKELETAL: Unremarkable. SKIN: Unremarkable. ENDOCRINE: Unremarkable. PSYCHIATRIC: Unremarkable. NEUROLOGY: Unremarkable. ENT/VISION: Unremarkable. CONSTITUTIONAL: He denies any weight loss. No fever, chills, night sweats except for mild fatigue and weakness. PHYSICAL EXAMINATION: Appears comfortable. No apparent distress. VITAL SIGNS: Stable. Blood pressure is 142/86, pulse rate 88 per minute and afebrile. HEENT examination unremarkable. Conjunctivae pink. Sclerae anicteric. Oral cavity no lesions. NECK: No JVD or lymph node enlargement. CHEST: Clear to auscultation. HEART: Regular rate and rhythm. ABDOMEN: Soft. Bowel sounds are positive. No organomegaly. EXTREMITIES: No pedal edema. SKIN: No rashes. NEUROLOGIC: Alert and oriented x3. No focal deficits. LABS: Labs from today show hemoglobin 9. Bilirubin is 1.5. MCV 117, platelets 232. AST, ALT normal. T-bilirubin is 1.5. IMPRESSION: 1. Macrocytic anemia secondary to vitamin B12 deficiency. Hematology has been consulted. 2. Altered bowel movements for the last few weeks' duration which are improving. 3. Severe dizziness, resolving. 4. Mild elevation of bilirubin but normal serum transaminases. RECOMMENDATION: 1. Vitamin B12 supplements. He was seen by Hematology and parenteral B12 supplements have been ordered. Continue with vitamin B12 supplements as recommended by Hematology/Oncology. 2. Once again discussed with the patient regarding inpatient endoscopic evaluation, especially colonoscopy and also an upper endoscopy because of vitamin B12 deficiency and rule out any autoimmune gastritis. At this time he still wants to think about it and he refuses to have it done tomorrow, but he will let me know about his plans tomorrow. In the meantime, continue with symptomatic supportive care. Repeat labs in the morning. We will follow with you closely. Thank you for this consultation. CHARLOTTE / EMMANUELLE: [id number] /
[2020-04-16] MEDS ORDERED: INSULIN DETEMIR (LEVEMIR) 100 UNIT/ML SYR SQ SCH (22:30)
[2020-04-16] MEDS: HYDROcodone/APAP 7.5-325MG 1 EACH TAB PO PRN (22:48)
[2020-04-17 07:42] LABS: Anisocytosis Slight; Basophils % (A) 0 %; Eosinophils # (A) 0.1 k/uL (0-0.7); Eosinophils % (A) 3 %; HCT 25.5 % (39.0-53.0); HGB 8.7 gm/dL (13.0-17.5); Lymphocytes # (A) 2.3 k/uL (1.0-4.8); Lymphocytes % (A) 47 %; MCH 40.9 pg (25.0-35.0); MCHC 34.1 g/dL (31.0-37.0); MCV 119.9 fL (80.0-100.0); Macrocytosis Marked; Monocytes # (A) 0.2 k/uL (0-1.0); Monocytes % (A) 4 %; Neutrophils # (A) 2.2 k/uL (1.3-7.7); Neutrophils % (A) 45 %; Platelet Count 229 k/uL (150-450); RBC 2.13 m/uL (4.30-5.90); RDW 17.6 % (11.5-15.5); WBC 4.9 k/uL (3.8-10.6)
[2020-04-17 07:45] LABS: Glucose,Whole Blood 187 mg/dL (75-99)
[2020-04-17 07:54] LABS: ALT 16 U/L (4-49); AST 28 U/L (17-59); African American GFR (CKD) >90 (>60 ml/min/1.73 sqM); Albumin 3.8 g/dL (3.5-5.0); Alkaline Phosphatase 43 U/L (38-126); Anion Gap 3 mmol/L; Blood Urea Nitrogen 4 mg/dL (9-20); Calcium 8.7 mg/dL (8.4-10.2); Carbon Dioxide 29 mmol/L (22-30); Chloride 106 mmol/L (98-107); Glucose 159 mg/dL (74-99); Non-African American GFR(CKD) >90 (>60 ml/min/1.73 sqM); Sodium 138 mmol/L (137-145); Total Bilirubin 1.4 mg/dL (0.2-1.3)
[2020-04-17] MEDS: INSULIN ASPART (NovoLOG) 100 UNIT/ML VIAL SQ SCH ×3 (07:55→17:50)
[2020-04-17] MEDS: metFORMIN 500 MG TAB PO SCH (07:55)
[2020-04-17] MEDS: CYANOCOBALAMIN 1,000 MCG/ML 1 ML VIAL IM SCH (07:56)
[2020-04-17] MEDS: HYDROcodone/APAP 7.5-325MG 1 EACH TAB PO PRN ×2 (07:56→14:25)
[2020-04-17] MEDS ORDERED: hydroCHLOROthiazide 25 MG TAB PO SCH (09:00)
[2020-04-17] MEDS ORDERED: lisinopriL 20 MG TAB PO SCH (09:00)
[2020-04-17 09:28] LABS: Haptoglobin 12.6 mg/dL (31.2-198.0)
[2020-04-17] MEDS ORDERED: FOLIC ACID 1 MG TAB PO SCH (10:15)
[2020-04-17 11:44] LABS: Glucose,Whole Blood 181 mg/dL (75-99)
[2020-04-17 12:55] LABS: Albumin 4.22 g/dL (3.80-4.90); Gamma Globulin 0.81 g/dL (0.70-1.50)
--- NOTE | 2020-04-17 14:05 | P.CRDCN ---
History of Present Illness History of present illness: HISTORY OF PRESENTING ILLNESS This is a pleasant 64-year-old male past medical history significant for hypertension, dyslipidemia, diabetes mellitus, COPD and CVA. 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 We have been asked to see in consultation for dizziness. The patient states for the previous 4 days he has been experiencing a dizzy sensation and feeling as though he is going to pass out. This usually occurs when he gets up too fast. He states it feels like things are spinning. He has had these episodes frequently however has never actually passed out. He does fall but has no loss of consciousness. One of the times he had tightness noted in the left precordial region associated with the dizziness. The pain did not move anywhere. He had no associated shortness of breath or palpitations. He denies nausea, vomiting or diaphoresis. He is seen and examined resting comfortably laying flat in bed in no acute distress. He is found to be anemic and is currently undergoing a workup per gastrointestinal team as well as hematology. The are recommending colonoscopy and EGD however the patient is decl ining. DIAGNOSTICS EKG reveals sinus mechanism with no acute ST or T wave abnormalities noted. Echocardiogram obtained reveals preserved LV systolic function with mild MR and mild TR. Laboratory reviewed, WBC 4.9, hemoglobin 8.7, platelets 229, sodium 138, potassium 4.0, creatinine 0.51, troponin negative 1. Current cardiac medications include atorvastatin 20 mg at bedtime, hydrochlorothiazide 25 mg daily and lisinopril 20 mg daily. REVIEW OF SYSTEMS At the time of my exam: CONSTITUTIONAL: Denies fever or chills. CARDIOVASCULAR: Denies chest pain, shortness of breath, orthopnea, PND or pa lpitations. RESPIRATORY: Denies cough. GASTROINTESTINAL: Denies abdominal pain, diarrhea, constipation, nausea or vomiting. MUSCULOSKELETAL: Denies myalgias. NEUROLOGIC: Denies numbness, tingling or weakness. ENDOCRINE: Denies fatigue, weight change, polydipsia or polyurina. GENITOURINARY: Denies burning, hematuria or urgency with micturation. HEMATOLOGIC: Denies history of anemia or bleeding. PHYSICAL EXAMINATION Blood pressure 122/64 heart rate 74 afebrile and maintaining oxygen saturation on room air. CONSTITUTIONAL: No apparent distress. HEENT: Head is normocephalic. Pupils are equal, round. Sclerae anicteric. Mucous membranes of the mouth are moist. No JVD. No carotid bruit. CHEST EXAMINATION: Lungs are clear to auscultation. No chest wall tenderness is noted on palpation or with deep breathing. HEART EXAMINATION: Regular rate and rhythm. S1, S2 heard. No murmurs, gallops or rub. ABDOMEN: Soft, nontender. Positive bowel sounds. EXTREMITIES: 2+ peripheral pulses, no lower extremity edema and no calf tenderness. NEUROLOGIC EXAMINATION: Patient is awake, alert and oriented x3. ASSESSMENT Dizziness Chest pain, atypical Anemia, macrocytic with B12 deficiency Hypertension Dyslipidemia Diabetes mellitus PLAN Obtain second troponin to rule out an acute coronary event. Echocardiogram reveals no significant wall motion abnormalities. Telemetry tracing has been unremarkable. Dizziness likely secondary to anemia. Ongoing medical management and evaluation for underlying cause of anemia. Hydrochlorothiazide could be culprit of positional dizziness as well, we recommend discontinuation of this medication. Follow up in the office with Dr. rGayson upon discharge. Thank you kindly for this consultation. Nurse Practitioner note has been reviewed, I agree with a documented findings and plan of care. Patient was seen and examined. Past Medical History Past Medical History: Asthma, COPD, CVA/TIA, Diabetes Mellitus, Hearing Disorder / Deafness, Hyperlipidemia, Hypertension, Osteoarthritis (OA), Skin Disorder Additional Past Medical History / Comment(s): IDDM type II, arthritis in multiple joints, psoriasis, vitiligo, KNIK, hx of feeling lightheaded and falls., ? Hx of CVA- states left arm weak-unable to lift or reach far-unable to grasp with left hand , weakness left leg and states left foot drops down and catches on everything., states fall after Left Hip surgery with fx., uses wheelchair and cane., lower back and left hip pain. History of Any Multi-Drug Resistant Organisms: None Reported Past Surgical History: Joint Replacement Additional Past Surgical History / Comment(s): Bilateral hip replacements Past Anesthesia/Blood Transfusion Reactions: No Reported Reaction Additional Past Anesthesia/Blood Transfusion Reaction / Comment(s): pt states was unable to receive spinal tap with last surgery d/t arthritis in back, received general anesthetic" Past Psychological History: No Psychological Hx Reported Smoking Status: Former smoker Past Alcohol Use History: None Reported Past Drug Use History: None Reported - Past Family History Mother Family Medical History: Eye Disorder, Hearing Disorder / Deafness Additional Family Medical History / Comment(s): Father is 90yrs old. He has glaucoma and is alutiiq. Medications and Allergies Home Medications Medication Instructions Recorded Confirmed Type Atorvastatin Calcium [Lipitor] 20 mg PO HS 02/03/14 04/16/20 History Insulin Detemir (Levemir) [Levemir] 30 unit SQ HS 02/03/14 04/16/20 History metFORMIN HCL [Glucophage] 500 mg PO BID 02/03/14 04/16/20 History lisinopriL [Prinivil] 20 mg PO DAILY 08/05/14 04/16/20 History hydroCHLOROthiazide [Hydrodiuril] 25 mg PO DAILY 04/23/19 04/16/20 History INSULIN ASPART (NovoLOG) [NovoLOG 20 unit SQ AC-TID 04/15/20 04/16/20 History (formulary)] HYDROcodone/APAP 7.5-325MG [Ernest 1 tab PO DAILY PRN 04/16/20 04/16/20 History 7.5-325] Allergies Allergy/AdvReac Type Severity Reaction Status Date / Time No Known Allergies Allergy Verified 04/16/20 07:11 Physical Exam Vitals: Vital Signs Temp Pulse Resp BP Pulse Ox 04/17/20 11:35 98 F 74 18 122/64 97 04/17/20 05:00 98.2 F 100 18 112/77 92 L 04/16/20 19:30 98.7 F 84 18 126/66 96 04/16/20 15:27 98 F 85 18 146/81 100 Intake and Output 04/16/20 04/17/20 04/17/20 22:59 06:59 14:59 Output Total 300 600 Balance -300 -600 Output: Urine 300 600 Other: Voiding Method Urinal Results 04/17/20 07:18 04/17/20 07:18 Cardiac Enzymes 04/17/20 Range/Units 07:18 AST 28 (17-59) U/L CBC 04/17/20 Range/Units 07:18 WBC 4.9 (3.8-10.6) k/uL RBC 2.13 L (4.30-5.90) m/uL Hgb 8.7 L (13.0-17.5) gm/dL Hct 25.5 L (39.0-53.0) % Plt Count 229 (150-450) k/uL Comprehensive Metabolic Panel 04/17/20 Range/Units 07:18 Sodium 138 (137-145) mmol/L Potassium 4.0 (3.5-5.1) mmol/L Chloride 106 (98-107) mmol/L Carbon Dioxide 29 (22-30) mmol/L BUN 4 L (9-20) mg/dL Creatinine 0.51 L (0.66-1.25) mg/dL Glucose 159 H (74-99) mg/dL Calcium 8.7 (8.4-10.2) mg/dL AST 28 (17-59) U/L ALT 16 (4-49) U/L Alkaline Phosphatase 43 (38-126) U/L Total Protein 6.0 L (6.3-8.2) g/dL Albumin 3.8 (3.5-5.0) g/dL Current Medications Generic Name Dose Route Start Last Admin Trade Name Freq PRN Reason Stop Dose Admin Hydrocodone Bitart/Acetaminophen 1 each 04/16/20 21:38 04/17/20 07:56 Ernest 7.5-325 PO 1 each Q6H PRN Administration Pain Atorvastatin Calcium 20 mg 04/16/20 21:00 04/16/20 21:20 Lipitor PO 20 mg HS DEIRDRE Administration Cyanocobalamin 1,000 mcg 04/16/20 13:00 04/17/20 07:56 Vitamin B-12 IM 1,000 mcg DAILY DEIRDRE Administration Folic Acid 1 mg 04/17/20 10:15 Folic Acid PO DAILY [facility] Hydrochlorothiazide 25 mg 04/17/20 09:00 04/17/20 07:55 Hydrodiuril PO 25 mg DAILY DEIRDRE Administration Insulin Aspart 0 unit 04/16/20 07:30 04/17/20 07:55 Novolog SQ 2 unit ACHS DEIRDRE Administration Protocol Insulin Detemir 30 unit 04/16/20 22:30 04/16/20 22:25 Levemir SQ Not Given HS DEIRDRE Lisinopril 20 mg 04/17/20 09:00 04/17/20 07:55 Zestril PO 20 mg DAILY DEIRDRE Administration Metformin HCl 500 mg 04/16/20 21:00 04/17/20 07:55 Glucophage PO 500 mg BID DEIRDRE Administration Naloxone HCl 0.2 mg 04/16/20 02:35 Narcan IV Q2M PRN Opioid Reversal Intake and Output 04/16/20 04/17/20 04/17/20 22:59 06:59 14:59 Output Total 300 600 Balance -300 -600 Output: Urine 300 600 Other: Voiding Method Urinal 04/17/20 07:18 04/17/20 07:18
--- NOTE | 2020-04-17 14:23 | P.PN ---
Subjective Progress Note Date: 04/17/20 Principal diagnosis: vit B deficient anemia Pt seen today in f/u, he is feeling pretty good, no bleeding, not interested in endoscopy at this time. Objective - Vital Signs Vital signs: Vital Signs Temp 98 F 04/17/20 11:35 Pulse 74 04/17/20 11:35 Resp 18 04/17/20 11:35 BP 122/64 04/17/20 11:35 Pulse Ox 97 04/17/20 11:35 Intake & Output 04/16/20 04/17/20 04/17/20 18:59 06:59 18:59 Output Total 900 Balance -900 Weight 84.822 kg Output: Urine 900 Other: Voiding Method Urinal Urinal - Constitutional General appearance: Present: average body habitus, cooperative, no acute distress - EENT Eyes: Present: anicteric sclerae, EOMI ENT: Present: hearing grossly normal - Respiratory Respiratory: bilateral: CTA - Cardiovascular Heart sounds: normal: S1, S2 - Peripheral edema leg Peripheral Edema: bilateral: None - Gastrointestinal General gastrointestinal: Present: normal bowel sounds, soft - Integumentary Integumentary Comment(s): psoriasis Integumentary: Present: pale - Musculoskeletal Musculoskeletal: Present: strength equal bilaterally - Psychiatric Psychiatric: Present: A&O x's 3, appropriate affect, intact judgment & insight - Labs CBC & Chem 7: 04/17/20 07:18 04/17/20 07:18 Labs: Abnormal Lab Results - Last 24 Hours (Table) 04/16/20 04/16/20 04/16/20 Range/Units 02:41 16:56 20:01 RBC (4.30-5.90) m/uL Hgb (13.0-17.5) gm/dL Hct (39.0-53.0) % MCV (80.0-100.0) fL MCH (25.0-35.0) pg RDW (11.5-15.5) % Macrocytosis Haptoglobin 12.6 L (31.2-198.0) mg/dL BUN (9-20) mg/dL Creatinine (0.66-1.25) mg/dL Glucose (74-99) mg/dL POC Glucose (mg/dL) 159 H 244 H (75-99) mg/dL Total Bilirubin (0.2-1.3) mg/dL Total Protein (6.3-8.2) g/dL Eutlp-8-Kihvrdzls 0.52 L (0.60-1.00) g/dL 04/17/20 04/17/20 04/17/20 Range/Units 07:18 07:18 07:43 RBC 2.13 L (4.30-5.90) m/uL Hgb 8.7 L (13.0-17.5) gm/dL Hct 25.5 L (39.0-53.0) % MCV 119.9 H (80.0-100.0) fL MCH 40.9 H (25.0-35.0) pg RDW 17.6 H (11.5-15.5) % Macrocytosis Marked A Haptoglobin (31.2-198.0) mg/dL BUN 4 L (9-20) mg/dL Creatinine 0.51 L (0.66-1.25) mg/dL Glucose 159 H (74-99) mg/dL POC Glucose (mg/dL) 187 H (75-99) mg/dL Total Bilirubin 1.4 H (0.2-1.3) mg/dL Total Protein 6.0 L (6.3-8.2) g/dL Cgtzx-0-Cwgdjrxac (0.60-1.00) g/dL 04/17/20 Range/Units 11:23 RBC (4.30-5.90) m/uL Hgb (13.0-17.5) gm/dL Hct (39.0-53.0) % MCV (80.0-100.0) fL MCH (25.0-35.0) pg RDW (11.5-15.5) % Macrocytosis Haptoglobin (31.2-198.0) mg/dL BUN (9-20) mg/dL Creatinine (0.66-1.25) mg/dL Glucose (74-99) mg/dL POC Glucose (mg/dL) 181 H (75-99) mg/dL Total Bilirubin (0.2-1.3) mg/dL Total Protein (6.3-8.2) g/dL Xnyza-3-Olicqbcuy (0.60-1.00) g/dL Assessment and Plan (1) Macrocytic anemia with vitamin B12 deficiency Narrative/Plan: Last visit chart reviewed in detail. Med list reviewed, metformin only drug that can be associated with functional B1 2 deficit. No Hx of biologics/immunotherapy for psoriasis. Parenteral B12 supplementation started 04/16. Recommended treatment course would be 1000mcg IM daily 5, weekly 4, every other week 2 then recheck B12 levels. If adequate, patient can have monthly. Reviewed this plan with pt, he verbali zed understanding. Appt at [facility] office set for 4pm on discharge. Will start oral folic acid. As B12 is utilized folic acid can drop in response to increased need. Other labs ordered to further work up anemia, no monoclonal protein Recommendation would also be for endoscopy as patient has never had those age- related cancer screenings, pt not interested in at this time Current Visit: Yes Status: Acute Priority: Medium Code(s): D51.9 - VITAMIN B12 DEFICIENCY ANEMIA, UNSPECIFIED SNOMED Code(s): 99642628
--- NOTE | 2020-04-17 16:50 | P.PN ---
Subjective Progress Note Date: 04/17/20 Principal diagnosis: Anemia and fatigue, weakness and dizziness This is a 64-year-old male who has been seen and examined at the bedside. He appears comfortable and in no acute distress. The patient was recently admitted and left AGAINST MEDICAL ADVICE. He then came back to the emergency department only after a few hours, after feeling dizzy when he got up in the middle of the night. He continues to deny any rectal bleeding, melena, or hematemesis. He denies any nausea, vomiting, or abdominal pain. He reports no fever, chills, or night sweats. His admission hemoglobin was 9, his repeat hemoglobin this morning is 8.7. Objective - Vital Signs Vital signs: Vital Signs Temp 98 F 04/17/20 11:35 Pulse 74 04/17/20 11:35 Resp 18 04/17/20 11:35 BP 122/64 04/17/20 11:35 Pulse Ox 97 04/17/20 11:35 Intake & Output 04/16/20 04/17/20 04/17/20 18:59 06:59 18:59 Intake Total 400 Output Total 900 Balance -900 400 Weight 84.822 kg Intake: Intake, IV Titration 400 Amount Sodium Chloride 0.9% 1, 400 000 ml @ 50 mls/hr IV . Q20H STA Rx#:[id number] Output: Urine 900 Other: Voiding Method Urinal Urinal - Exam General appearance: The patient is alert, oriented, in no acute distress. HET: Head is normocephalic and atraumatic. [place]. Sclera anicteric. Neck: Supple without lymphadenopathy. Heart: S1 S2. Regular rate and rhythm. Lungs: No crackles or wheezes are heard. Abdomen: Soft, nontender, nondistended with bowel sounds. Guarding or rigidity. No organomegaly. Extremities: Normal skin color and turgor. No pedal edema noted. Neurological: Alert and oriented 3. No focal deficits. - Labs CBC & Chem 7: 04/17/20 07:18 04/17/20 07:18 Labs: Abnormal Lab Results - Last 24 Hours (Table) 04/16/20 04/16/20 04/16/20 Range/Units 02:41 16:56 20:01 RBC (4.30-5.90) m/uL Hgb (13.0-17.5) gm/dL Hct (39.0-53.0) % MCV (80.0-100.0) fL MCH (25.0-35.0) pg RDW (11.5-15.5) % Macrocytosis Haptoglobin 12.6 L (31.2-198.0) mg/dL BUN (9-20) mg/dL Creatinine (0.66-1.25) mg/dL Glucose (74-99) mg/dL POC Glucose (mg/dL) 159 H 244 H (75-99) mg/dL Total Bilirubin (0.2-1.3) mg/dL Total Protein (6.3-8.2) g/dL Vqnne-1-Pdqztqule 0.52 L (0.60-1.00) g/dL 04/17/20 04/17/20 04/17/20 Range/Units 07:18 07:18 07:43 RBC 2.13 L (4.30-5.90) m/uL Hgb 8.7 L (13.0-17.5) gm/dL Hct 25.5 L (39.0-53.0) % MCV 119.9 H (80.0-100.0) fL MCH 40.9 H (25.0-35.0) pg RDW 17.6 H (11.5-15.5) % Macrocytosis Marked A Haptoglobin (31.2-198.0) mg/dL BUN 4 L (9-20) mg/dL Creatinine 0.51 L (0.66-1.25) mg/dL Glucose 159 H (74-99) mg/dL POC Glucose (mg/dL) 187 H (75-99) mg/dL Total Bilirubin 1.4 H (0.2-1.3) mg/dL Total Protein 6.0 L (6.3-8.2) g/dL Bkdgh-2-Yedacmddd (0.60-1.00) g/dL 04/17/20 Range/Units 11:23 RBC (4.30-5.90) m/uL Hgb (13.0-17.5) gm/dL Hct (39.0-53.0) % MCV (80.0-100.0) fL MCH (25.0-35.0) pg RDW (11.5-15.5) % Macrocytosis Haptoglobin (31.2-198.0) mg/dL BUN (9-20) mg/dL Creatinine (0.66-1.25) mg/dL Glucose (74-99) mg/dL POC Glucose (mg/dL) 181 H (75-99) mg/dL Total Bilirubin (0.2-1.3) mg/dL Total Protein (6.3-8.2) g/dL Ocwrl-6-Jxunabzjb (0.60-1.00) g/dL Assessment and Plan Assessment: 1. Macrocytic anemia secondary to vitamin B12 deficiency. Etiology has been consult.. 2. Altered bowel movements for the last 2 weeks duration which are improving. 3. Severe dizziness, resolving 4. Mild elevation of bilirubin but normal serum transaminases Plan: 1. Vitamin B12 supplements. He was seen by hematology and parental B12 supplements have been ordered. Continue with vitamin B12 supplements as recommended by hematology services. 2. Once again it was discussed with the patient regarding inpatient endoscopic evaluation, specially colonoscopy and also an upper endoscopy because of vitamin B12 deficiency and to rule out any autoimmune gastritis. The patient still wants to think about it and refuses to have it done well inpatient. Patient states he will consider follow-up with gastroenterology and scheduling upper and lower endoscopies as an outpatient. 3. Continue with symptomatic supportive care. Thank you for this consultation, at this time we sign off. We will be on standby if patient changes his mind and chooses to have endoscopic evaluation. The impression and plan of care has been dictated as directed. Dr. Haseeb Dean I performed a history and examination of this patient, discussed the same with the dictator. I agree with the dictator's note ,documented as a scribe. Any additional findings or plans will be noted.
[2020-04-17 17:13] LABS: Glucose,Whole Blood 224 mg/dL (75-99)
--- NOTE | 2020-04-17 17:31 | P.DS ---
Providers Date of admission: 04/16/20 02:37 Expected date of discharge: 04/17/20 Attending physician: Catherine Barry Consults: 04/16/20 02:36 Consult Physician Urgent Consulting Provider: Ilya Loja Consult Reason/Comments: macrocytic anemia Do you want consulting provider notified?: Yes, Notify in am Consult Physician Urgent Consulting Provider: Tamika Dean Consult Reason/Comments: concern for GI bleed Do you want consulting provider notified?: Yes, Notify in am 04/16/20 09:09 Consult Physician Routine Consulting Provider: Anny Arizmendi Consult Reason/Comments: dizziness Do you want consulting provider notified?: Yes Primary care physician: [facility] Hospital Course: Diagnosis on discharge: 1. Episodes of severe dizziness, with recent multiple falls, cause is unclear, carotid Doppler done prior to patient leaving the hospital and was within normal limits, echocardiogram and cardiology consultation requested 2. Anemia patient was advised to have EGD and colonoscopy to rule out malignancy 3. Vitamin B12 deficiency, patient will receive vitamin B12 supplements Hospital course: Boaz Reed is a 64-year-old male who presented to [facility] emergency room with generalized weakness, dizziness, and multiple falls he was evaluated in emergency room and was found to have anemia with hemoglobin of 8.9 he was admitted to medical floor gastroenterology consultation was requested patient was advised to have EGD and colonoscopy however patient decided to leave the hospital AGAINST MEDICAL ADVICE. Patient went home he felt very dizzy again and decided to come back to the emergency room he was readmitted to the hospital his hemoglobin is 9 on presentation there is no fever or chills no headache or dizziness no chest pain no shortness of breath no cough no nausea or vomiting no abdominal pain no diarrhea and no burning was urination no frequency or urgency and no hematuria. Patient has evidence of macrocytic anemia he had evidence of vitamin B12 deficiency gastroenterology consultation and hematology consultation were requested. Echocardiogram was ordered and cardiology consultation requested in regard to severe dizziness. On 04/17/2020 patient was seen and examined on the medical floor, he is alert and oriented 3 in no apparent distress, he states that his dizziness has improved, he is able to ambulate without any difficulty, echocardiogram and carotid Doppler did not reveal any evidence of abnormality, patient was evaluated by gastroenterology he was advised to have EGD and colonoscopy however he refused at this time, he has evidence of severe anemia was evidence of vitamin B12 deficiency he received IM injection of vitamin B12 and will continue to have her regimen of IM injections of vitamin B12 as outpatient, patient is stable, he is very anxious to be discharged home, he states that he take care of his elderly father, he will be discharged home today, and will be followed up as outpatient for IM injections of vitamin B12, and follow-up with gastroenterology and with cardiology. Patient Condition at Discharge: Serious Plan - Discharge Summary Discharge Rx Participant: No New Discharge Prescriptions: New Folic Acid 1 mg PO DAILY tab Cyanocobalamin [Vitamin B-12 Injection] 1,000 mcg IM DAILY vial Continue Insulin Detemir (Levemir) [Levemir] 30 unit SQ HS metFORMIN HCL [Glucophage] 500 mg PO BID Atorvastatin Calcium [Lipitor] 20 mg PO HS lisinopriL [Prinivil] 20 mg PO DAILY INSULIN ASPART (NovoLOG) [NovoLOG (formulary)] 20 unit SQ AC-TID HYDROcodone/APAP 7.5-325MG [[place] 7.5-325] 1 tab PO DAILY PRN PRN Reason: Pain Discontinued hydroCHLOROthiazide [Hydrodiuril] 25 mg PO DAILY Discharge Medication List Atorvastatin Calcium [Lipitor] 20 mg PO HS 02/03/14 [History] Insulin Detemir (Levemir) [Levemir] 30 unit SQ HS 02/03/14 [History] metFORMIN HCL [Glucophage] 500 mg PO BID 02/03/14 [History] lisinopriL [Prinivil] 20 mg PO DAILY 08/05/14 [History] INSULIN ASPART (NovoLOG) [NovoLOG (formulary)] 20 unit SQ AC-TID 04/15/20 [History] HYDROcodone/APAP 7.5-325MG [[place] 7.5-325] 1 tab PO DAILY PRN 04/16/20 [History] Cyanocobalamin [Vitamin B-12 Injection] 1,000 mcg IM DAILY vial 04/17/20 [Rx] Folic Acid 1 mg PO DAILY tab 04/17/20 [Rx] Follow up Appointment(s)/Referral(s): Marly Christine ANPBC [Nurse Practitioner] - 04/18/20 4:00 pm (THIS IS FOR B12 INJECTION. APPT WILL FOLLOW. ) Catherine Barry MD [Primary Care Provider] - 1-2 days Rabia Champion NPC [Nurse Practitioner] - 2 Weeks Patient Instructions/Handouts: Anemia (DC)
[2020-04-17 18:22] VITALS: BP 121/74; PULSE 86; TEMP 98.3
== END 2020-04-17 18:38 | disposition home or self-care (01) | DRG 812 ==
LOC: EC 02:07 → 5NMEDONC 02:37 → 6NMEDSUR 04-17 07:29
PROVIDERS: ADMIT Internal Medicine; ATTEND Internal Medicine
DX: D51.9 Vitamin B12 deficiency anemia, unspecified (principal); I69.954 Hemiplegia and hemiparesis following unspecified cerebrovascular disease affecting left non-dominant side; R42 Dizziness and giddiness; D53.9 Nutritional anemia, unspecified; E11.9 Type 2 diabetes mellitus without complications; E78.5 Hyperlipidemia, unspecified; H91.90 Unspecified hearing loss, unspecified ear; I10 Essential (primary) hypertension; J44.9 Chronic obstructive pulmonary disease, unspecified; L40.9 Psoriasis, unspecified; F41.9 Anxiety disorder, unspecified; L80 Vitiligo; M15.9 Polyosteoarthritis, unspecified; R29.6 Repeated falls; R07.89 Other chest pain; I08.1 Rheumatic disorders of both mitral and tricuspid valves; Z79.4 Long term (current) use of insulin; Z79.899 Other long term (current) drug therapy; Z87.891 Personal history of nicotine dependence; Z96.643 Presence of artificial hip joint, bilateral; Z83.52 Family history of ear disorders
CPT/HCPCS: 36415; 80053; 83010; 83883; 84165; 84484; 85025; 85610; 85730; 86334; 86850; 86900; 86901; 93005; 93306; 96360; 96361; 96372; 99285

== ENCOUNTER 2020-05-02 17:22 | Emergency (ER) | payer MEDICARE, OTHER ==
[2020-05-02 17:29] VITALS: RESP 18; TEMP 98
[2020-05-02] MEDS ORDERED: HYDROcodone/APAP 5-325MG 1 EACH TAB PO STA ×2 (18:04→19:42)
--- NOTE | 2020-05-02 19:08 | XR ---
EXAMINATION TYPE: XR hand complete LT DATE OF EXAM: 05/02/2020 COMPARISON: NONE HISTORY: Pain TECHNIQUE: 3 views FINDINGS: Metacarpals are intact. I see no fracture nor dislocation. There is mild narrowing of the I P joint spaces. IMPRESSION: No acute abnormality of the left hand.
--- NOTE | 2020-05-02 19:08 | XR ---
EXAMINATION TYPE: XR wrist complete LT DATE OF EXAM: 05/02/2020 COMPARISON: NONE HISTORY: Pain TECHNIQUE: 4 views FINDINGS: Carpal bones are intact. I see no fracture nor dislocation. Joint spaces are normal. IMPRESSION: Negative left wrist exam.
--- NOTE | 2020-05-02 19:23 | XR ---
EXAMINATION TYPE: XR Hip Bilateral and AP pelvis DATE OF EXAM: 05/02/2020 COMPARISON: NONE HISTORY: Pain TECHNIQUE: 5 views FINDINGS: The pelvic ring is intact. There are bilateral hip prostheses.. Sacroiliac joints appear in tact. Components appear in anatomic position. IMPRESSION: No acute abnormality of the pelvis and both hips. No change.
[2020-05-02] MEDS ORDERED: ACET/COD 300 MG/30 MG STARTER PACK 6 TAB BTL PO STA (19:42)
--- NOTE | 2020-05-02 19:47 | ED ---
General Adult HPI - General Chief complaint: Extremity Injury, Upper Stated complaint: Fall, hand/ wrist injury Time Seen by Provider: 05/02/20 17:42 Source: patient, RN notes reviewed, old records reviewed Mode of arrival: ambulatory Limitations: no limitations - History of Present Illness Initial comments: 64-year-old male patient received chief complaint left thumb injury. Patient reports that about 3 days ago he fell forward just from standing height. [place] himself with his left outstretched arm. Patient reports that he did bump his head however it was minor. Denies any loss of consciousness. Patient reported that since then he has been having pain in his left thumb hand and wrist. Patient has a headache changes in vision or any pain in his neck. Patient also reports that he has been having some bilateral hip pain. Patient reports that to certain extent however this pain is chronic and he has not having pain ever since his surgery about 2 years ago. Has still been ambulatory. Denies any other acute areas of pain denies any other acute complaints. Systemic: Pt denies fatigue, fever/chills, rash. Pt denies weakness, night sweat s, weight loss. Neuro: Pt denies headache, visual disturbances, syncope or pre-syncope. HEENT: Pt denies ocular discharge or irritation, otalgia, rhinorrhea, pharyngitis or notable lymphadenopathy. Cardiopulmonary: Pt denies chest pain, SOB, heart palpitations, dyspnea on exertion. Abdominal/GI: Pt denies abdominal pain, n/v/d. : Pt denies dysuria, burning w/ urination, frequency/urgency. Denies new onset urinary or bowel incontinence. MSK: Pt denies loss of strength or function in extremities. Neuro: Pt denies new onset weakness, paresthesias. - Related Data Home Medications Medication Instructions Recorded Confirmed Atorvastatin Calcium [Lipitor] 20 mg PO HS 02/03/14 04/16/20 Insulin Detemir (Levemir) [Levemir] 30 unit SQ HS 02/03/14 04/16/20 metFORMIN HCL [Glucophage] 500 mg PO BID 02/03/14 04/16/20 lisinopriL [Prinivil] 20 mg PO DAILY 08/05/14 04/16/20 INSULIN ASPART (NovoLOG) [NovoLOG 20 unit SQ AC-TID 04/15/20 04/16/20 (formulary)] HYDROcodone/APAP 7.5-325MG [[place] 1 tab PO DAILY PRN 04/16/20 04/16/20 7.5-325] Previous Rx's Medication Instructions Recorded Cyanocobalamin [Vitamin B-12 1,000 mcg IM DAILY vial 04/17/20 Injection] Folic Acid 1 mg PO DAILY tab 04/17/20 Allergies Allergy/AdvReac Type Severity Reaction Status Date / Time No Known Allergies Allergy Verified 05/02/20 17:26 Review of Systems ROS Statement: Those systems with pertinent positive or pertinent negative responses have been documented in the HPI. ROS Other: All systems not noted in ROS Statement are negative. Past Medical History Past Medical History: Asthma, COPD, CVA/TIA, Diabetes Mellitus, Hearing Disorder / Deafness, Hyperlipidemia, Hypertension, Osteoarthritis (OA), Skin Disorder Additional Past Medical History / Comment(s): IDDM type II, arthritis in multiple joints, psoriasis, vitiligo, [place], hx of feeling lightheaded and falls., ? Hx of CVA- states left arm weak-unable to lift or reach far-unable to grasp with left hand , weakness left leg and states left foot drops down and catches on everything., states fall after Left Hip surgery with fx., uses wheelchair and cane., lower back and left hip pain. History of Any Multi-Drug Resistant Organisms: None Reported Past Surgical History: Joint Replacement Additional Past Surgical History / Comment(s): Bilateral hip replacements Past Anesthesia/Blood Transfusion Reactions: No Reported Reaction Additional Past Anesthesia/Blood Transfusion Reaction / Comment(s): pt states was unable to receive spinal tap with last surgery d/t arthritis in back, received general anesthetic" Past Psychological History: No Psychological Hx Reported Smoking Status: Former smoker Past Alcohol Use History: None Reported Past Drug Use History: None Reported - Past Family History Mother Family Medical History: Eye Disorder, Hearing Disorder / Deafness Additional Family Medical History / Comment(s): Father is 90yrs old. He has glaucoma and is [place]. General Exam - General Exam Comments Initial Comments: Constitutional: NAD, AOX3, Pt has pleasant affect. HEENT: NC/AT, trachea midline, neck supple, no lymphadenopathy. External ears appear normal, without discharge. Mucous membranes moist. Eyes PERRLA, EOM intact. There is no scleral icterus. No pallor noted. Cardiopulmonary: RRR, no murmurs, rubs or gallops, no JVD noted. Lungs CTAB in anterior and posterior [place]. No peripheral edema. Abdominal exam: Abdomen soft and non-distended. Abdomen non-tender to palpation in all 4 quadrants. Bowel sounds active in LLQ. No hepatosplenomegaly. No ecchymosis Neuro: CN II-XII intact. No nuchal rigidity. No raccon eyes, no curran sign, no hemotympanum. No cervical spinal tenderness. MSK: No posterior calf tenderness bilaterally, homans sign negative bilaterally. Posterior tibialis and radial pulse +2 bilaterally. Sensation intact in upper and lower extremities. Left first digit first metacarpal is tender to palpation with some ecchymoses are noted. Sensation is intact. Range of motion limited secondary to discomfort. No other focal areas of pain on the hand. There is snuffbox tenderness. Other focal areas of pain on the upper extremities. Mild bilateral hip tenderness. No other lower extremity tenderness, ambulatory without difficulty. Limitations: no limitations Course Vital Signs 05/02/20 05/02/20 17:26 20:05 Temperature 98 F Pulse Rate 82 79 Respiratory 18 18 Rate Blood Pressure 158/90 140/88 O2 Sat by Pulse 100 99 Oximetry Medical Decision Making - Medical Decision Making 64-year-old male patient presents to ED for evaluation of fall 3 days ago. Patient didn't hit his head denies a loss of consciousness. Denies any head or neck complaints. Chief complaint is left thumb and first metacarpal pain extending to snuffbox region. Patient also has some pain in his hips are he re ports that has been somewhat chronic since his hip replacement over a year ago. I recommended a CAT scan the patient which he declined. Risks were discussed which he verbalized understanding. Plain films are negative. Patient placed in thumb spica splint. Neurovascular intact before and after splint placement. We'll discharge the patient follow-up and return precautions. Case discussed with Dr. Brooks. Disposition Clinical Impression: Hand sprain, Wrist sprain, Fall Disposition: HOME SELF-CARE Condition: Stable Instructions (If sedation given, give patient instructions): Wrist Sprain (ED) Additional Instructions: follow up with primary care provider and orthopedic surgeon tomorrow. Continue to wear splint. Take pain medication only as needed. At your request I sent you home with one [place] that he may use for emergency pain. For less severe pain you may use tylenol 3, regular Tylenol or ibuprofen. both the [place] and Tylenol 3 contain acetaminophen should not take both medications at the same time. Do not operate heavy machinery or drive if taking his medications. Return to ER with any worsening symptoms. Is patient prescribed a controlled substance at d/c from ED?: No Referrals: Catherine Barry MD [Primary Care Provider] - 1-2 days Suleman Castillo DO [Doctor of Osteopathic Medicine] - 1-2 days
[2020-05-02 20:06] VITALS: BP 140/88; PULSE 79
== END 2020-05-02 20:06 | disposition home or self-care (01) ==
LOC: EC 17:22
DX: S63.502A Unspecified sprain of left wrist, initial encounter (principal); S63.92XA Sprain of unspecified part of left wrist and hand, initial encounter; M25.552 Pain in left hip; M25.551 Pain in right hip; E78.5 Hyperlipidemia, unspecified; E11.9 Type 2 diabetes mellitus without complications; I10 Essential (primary) hypertension; M19.90 Unspecified osteoarthritis, unspecified site; Z79.4 Long term (current) use of insulin; I69.354 Hemiplegia and hemiparesis following cerebral infarction affecting left non-dominant side; Z99.89 Dependence on other enabling machines and devices; Z79.899 Other long term (current) drug therapy; Z99.3 Dependence on wheelchair; Z96.643 Presence of artificial hip joint, bilateral; Z87.891 Personal history of nicotine dependence; X50.9XXA Other and unspecified overexertion or strenuous movements or postures, initial encounter
CPT/HCPCS: 73521; 99284

== ENCOUNTER 2020-06-23 14:49 | Emergency (ER) | payer MEDICARE, OTHER ==
[2020-06-23 17:05] VITALS: PULSE 94; TEMP 98
[2020-06-23] MEDS ORDERED: HYDROcodone/APAP 7.5-325MG 1 EACH TAB PO ONE (18:14)
--- NOTE | 2020-06-23 18:15 | ED ---
Back Pain HPI - General Chief Complaint: Back Pain/Injury Stated Complaint: Back Pain Time Seen by Provider: 06/23/20 17:20 Source: patient Limitations: no limitations - History of Present Illness Initial Comments: 64yo male prsenting for left low back pain after fall. 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 Denied head injury, LOC, denies extremity injury. States his chronic low back pain has increased. he states he has burning sensation down the left leg and at times it feels sleepy. Patietn denies increased weakness, denies loss of bowel bladder control, denies urinary retention, denies chest pain SOB. [place] leg coolness or pallor. Denies additional complaints. - Related Data Home Medications Medication Instructions Recorded Confirmed Atorvastatin Calcium [Lipitor] 20 mg PO HS 02/03/14 04/16/20 Insulin Detemir (Levemir) [Levemir] 30 unit SQ HS 02/03/14 04/16/20 metFORMIN HCL [Glucophage] 500 mg PO BID 02/03/14 04/16/20 lisinopriL [Prinivil] 20 mg PO DAILY 08/05/14 04/16/20 INSULIN ASPART (NovoLOG) [NovoLOG 20 unit SQ AC-TID 04/15/20 04/16/20 (formulary)] HYDROcodone/APAP 7.5-325MG [[place] 1 tab PO DAILY PRN 04/16/20 04/16/20 7.5-325] Previous Rx's Medication Instructions Recorded Cyanocobalamin [Vitamin B-12 1,000 mcg IM DAILY vial 04/17/20 Injection] Folic Acid 1 mg PO DAILY tab 04/17/20 Allergies Allergy/AdvReac Type Severity Reaction Status Date / Time No Known Allergies Allergy Verified 06/23/20 17:05 Review of Systems ROS Statement: Those systems with pertinent positive or pertinent negative responses have been documented in the HPI. ROS Other: All systems not noted in ROS Statement are negative. Past Medical History Past Medical History: Asthma, COPD, CVA/TIA, Diabetes Mellitus, Hearing Disorder / Deafness, Hyperlipidemia, Hypertension, Osteoarthritis (OA), Skin Disorder Additional Past Medical History / Comment(s): IDDM type II, arthritis in multiple joints, psoriasis, vitiligo, [place], hx of feeling lightheaded and falls., ? Hx of CVA- states left arm weak-unable to lift or reach far-unable to grasp with left hand , weakness left leg and states left foot drops down and catches on everything., states fall after Left Hip surgery with fx., uses wheelchair and cane., lower back and left hip pain. History of Any Multi-Drug Resistant Organisms: None Reported Past Surgical History: Joint Replacement Additional Past Surgical History / Comment(s): Bilateral hip replacements Past Anesthesia/Blood Transfusion Reactions: No Reported Reaction Additional Past Anesthesia/Blood Transfusion Reaction / Comment(s): pt states was unable to receive spinal tap with last surgery d/t arthritis in back, received general anesthetic" Past Psychological History: No Psychological Hx Reported Smoking Status: Former smoker Past Alcohol Use History: None Reported Past Drug Use History: None Reported - Past Family History Mother Family Medical History: Eye Disorder, Hearing Disorder / Deafness Additional Family Medical History / Comment(s): Father is 90yrs old. He has glaucoma and is [place]. General Exam Limitations: no limitations Course Vital Signs 06/23/20 06/23/20 17:01 19:18 Temperature 98 F Pulse Rate 94 94 Respiratory 16 18 Rate Blood Pressure 166/100 171/95 O2 Sat by Pulse 99 99 Oximetry Disposition Clinical Impression: Low back pain, Fall Disposition: HOME SELF-CARE Condition: Good Additional Instructions: Please use medication as discussed. Please follow-up with family doctor in the next 2 days. Please return to emergency room if the symptoms increase or worsen or for any other concerns. Is patient prescribed a controlled substance at d/c from ED?: No Referrals: Felipe Phillips MD [Primary Care Provider] - 1-2 days Time of Disposition: 19:31
[2020-06-23] MEDS ORDERED: LIDOCAINE 5% PATCH TOPICAL STA (18:24)
[2020-06-23 19:18] VITALS: BP 171/95; RESP 18
[2020-06-23] MEDS ORDERED: HYDROmorphone 0.5 MG/0.5 ML SYRINGE IM STA (19:22)
--- NOTE | 2020-06-23 19:28 | CT ---
EXAMINATION TYPE: CT lumbar spine wo con DATE OF EXAM: 06/23/2020 COMPARISON: None HISTORY: fall, pain with radiation down left leg CT DLP: 948.4 mGycm Automated exposure control for dose reduction was used. Images obtained from the level of T12-S3 vertebra without contrast. There is normal alignment of the lumbar vertebra. There is no compression fracture. There is mild spu rring of the endplates. Disc spaces are fairly normal. There is no lumbar paraspinal mass. The assistant professor of dietetics ior elements are intact. Sacroiliac joints are intact. I see no bony destructive process. There is mu ltilevel lumbar spinal stenosis from L2 to L5. This is more severe at L4-5. This is related to facet arthropathy and ligamentum flavum thickening. IMPRESSION: Minor degenerative hypertrophic changes. Moderate multilevel spinal stenosis as above from L2 to to L 5. No fracture.
== END 2020-06-23 19:39 | disposition home or self-care (01) ==
LOC: EC 14:49
DX: M54.5 Low back pain (principal); J44.9 Chronic obstructive pulmonary disease, unspecified; E11.9 Type 2 diabetes mellitus without complications; I10 Essential (primary) hypertension; E78.5 Hyperlipidemia, unspecified; M19.90 Unspecified osteoarthritis, unspecified site; Z79.4 Long term (current) use of insulin; Z79.899 Other long term (current) drug therapy; Z86.73 Personal history of transient ischemic attack (TIA), and cerebral infarction without residual deficits; Z87.891 Personal history of nicotine dependence; Z96.643 Presence of artificial hip joint, bilateral; W19.XXXA Unspecified fall, initial encounter
CPT/HCPCS: 51798; 72131; 99284; 96372; J1170

== ENCOUNTER 2020-06-24 01:05 | Emergency (ER) | payer MEDICARE, OTHER ==
[2020-06-24 01:20] VITALS: RESP 18
[2020-06-24] MEDS ORDERED: HYDROmorphone 0.5 MG/0.5 ML SYRINGE IM STA (01:39)
--- NOTE | 2020-06-24 02:49 | XR ---
EXAM: XR Left Hip With Pelvis When Performed, 2 or 3 Views CLINICAL HISTORY: ITS.REASON XR Reason: pain TECHNIQUE: Two or three views of the left hip with pelvis when performed. COMPARISON: No relevant prior studies available. FINDINGS: Bones/joints: Bilateral hip prostheses seen on the AP pelvis view. No evidence acute fracture or dislocation, notably of the left hip. Soft tissues: Unremarkable. Other: Large amount of stool in the rectum. IMPRESSION: 1. Bilateral hip prostheses. 2. No evidence of acute fracture or dislocation
[2020-06-24] MEDS ORDERED: ACET/COD 300 MG/30 MG STARTER PACK 6 TAB BTL PO STA (03:03)
--- NOTE | 2020-06-24 03:07 | ED ---
General Adult HPI - General Chief complaint: Recheck/Abnormal Lab/Rx Stated complaint: Recheck hip pain Time Seen by Provider: 06/24/20 01:22 Source: patient, RN notes reviewed Mode of arrival: wheelchair Limitations: no limitations - History of Present Illness Initial comments: 64-year-old male presents to the emergency room for a chief complaint of left hip pain. Patient fell 3 days ago when trying to get in the car. He reports that he went to grab the handle and it slipped and he fell onto his hip and back. Patient reports that he was seen here earlier and had negative scans of his back however when he went home the pain worsened and his hip. Patient is able to ambulate on the hip.Patient has no other complaints at this time including shortness of breath, chest pain, abdominal pain, nausea or vomiting, headache, or visual changes. - Related Data Home Medications Medication Instructions Recorded Confirmed Atorvastatin Calcium [Lipitor] 20 mg PO HS 02/03/14 04/16/20 Insulin Detemir (Levemir) [Levemir] 30 unit SQ HS 02/03/14 04/16/20 metFORMIN HCL [Glucophage] 500 mg PO BID 02/03/14 04/16/20 lisinopriL [Prinivil] 20 mg PO DAILY 08/05/14 04/16/20 INSULIN ASPART (NovoLOG) [NovoLOG 20 unit SQ AC-TID 04/15/20 04/16/20 (formulary)] HYDROcodone/APAP 7.5-325MG [[place] 1 tab PO DAILY PRN 04/16/20 04/16/20 7.5-325] Previous Rx's Medication Instructions Recorded Cyanocobalamin [Vitamin B-12 1,000 mcg IM DAILY vial 04/17/20 Injection] Folic Acid 1 mg PO DAILY tab 04/17/20 Allergies Allergy/AdvReac Type Severity Reaction Status Date / Time No Known Allergies Allergy Verified 06/24/20 01:20 Review of Systems ROS Statement: Those systems with pertinent positive or pertinent negative responses have been documented in the HPI. ROS Other: All systems not noted in ROS Statement are negative. Past Medical History Past Medical History: Asthma, COPD, CVA/TIA, Diabetes Mellitus, Hearing Disorder / Deafness, Hyperlipidemia, Hypertension, Osteoarthritis (OA), Skin Disorder Additional Past Medical History / Comment(s): IDDM type II, arthritis in multiple joints, psoriasis, vitiligo, [place], hx of feeling lightheaded and falls., ? Hx of CVA- states left arm weak-unable to lift or reach far-unable to grasp with left hand , weakness left leg and states left foot drops down and catches on everything., states fall after Left Hip surgery with fx., uses wheelchair and cane., lower back and left hip pain. History of Any Multi-Drug Resistant Organisms: None Reported Past Surgical History: Joint Replacement Additional Past Surgical History / Comment(s): Bilateral hip replacements Past Anesthesia/Blood Transfusion Reactions: No Reported Reaction Additional Past Anesthesia/Blood Transfusion Reaction / Comment(s): pt states was unable to receive spinal tap with last surgery d/t arthritis in back, received general anesthetic" Past Psychological History: No Psychological Hx Reported Smoking Status: Former smoker Past Alcohol Use History: None Reported Past Drug Use History: Marijuana - Past Family History Mother Family Medical History: Eye Disorder, Hearing Disorder / Deafness Additional Family Medical History / Comment(s): Father is 90yrs old. He has glaucoma and is teller. General Exam Limitations: no limitations General appearance: alert Head exam: Present: atraumatic, normocephalic, normal inspection Eye exam: Present: normal appearance, PERRL, EOMI. Absent: scleral icterus, conjunctival injection, periorbital swelling ENT exam: Present: normal exam, mucous membranes moist Neck exam: Present: normal inspection, full ROM. Absent: tenderness, meningismus, lymphadenopathy Respiratory exam: Present: normal lung sounds bilaterally. Absent: respiratory distress, wheezes, rales, rhonchi, stridor Cardiovascular Exam: Present: regular rate, normal rhythm, normal heart sounds. Absent: systolic murmur, diastolic murmur, rubs, gallop, clicks GI/Abdominal exam: Present: soft, normal bowel sounds. Absent: distended, tenderness, guarding, rebound, rigid Extremities exam: Present: full ROM (Full range of motion of the left hip), tenderness (. mild tenderness noted of the lateral left hip. ), normal capillary refill (Capillary refill less than 2 seconds, DP pulse 2+ left lower extremity.), other (Sensation intact left lower extremity. Patient is ambulatory in the left hip. No external signs of trauma.) Back exam: Absent: vertebral tenderness Course Vital Signs 06/24/20 01:13 Temperature 98 F Pulse Rate 81 Respiratory 18 Rate Blood Pressure 150/89 O2 Sat by Pulse 98 Oximetry Medical Decision Making - Medical Decision Making Previous CT of that lumbar spine was reviewed which was negative for acute fracture. X-ray of the hip and pelvis were obtained which showed no evidence of acute fracture or dislocation. Patient does have bilateral hip prosthesis. Patient was given pain medication and had significant improvement in pain. At this time patient can be discharged to follow up with primary care. He will return to the emergency room for any worsening symptoms. Disposition Clinical Impression: Hip pain Disposition: HOME SELF-CARE Condition: Good Instructions (If sedation given, give patient instructions): Hip Pain (ED) Additional Instructions: Please take Tylenol 3 for pain but do not drive or operate machinery while taking this. Follow up with primary care in 1-2 days for a recheck. If you have worsening symptoms return to the emergency room. Is patient prescribed a controlled substance at d/c from ED?: No Referrals: Felipe Phillips MD [Primary Care Provider] - 1-2 days Time of Disposition: 03:06
[2020-06-24 03:15] VITALS: BP 137/87; PULSE 71; TEMP 97
== END 2020-06-24 03:15 | disposition home or self-care (01) ==
LOC: EC 01:05
DX: M25.552 Pain in left hip (principal); E78.5 Hyperlipidemia, unspecified; I10 Essential (primary) hypertension; E11.9 Type 2 diabetes mellitus without complications; Z79.4 Long term (current) use of insulin; Z79.899 Other long term (current) drug therapy; Z87.891 Personal history of nicotine dependence; Z96.643 Presence of artificial hip joint, bilateral; W01.0XXA Fall on same level from slipping, tripping and stumbling without subsequent striking against object, initial encounter; Y93.89 Activity, other specified
CPT/HCPCS: 73502; 99283; 96372; J1170

== ENCOUNTER 2020-07-19 13:17 | Emergency (ER) | payer MEDICARE, OTHER ==
[2020-07-19 13:36] VITALS: RESP 18
[2020-07-19] MEDS ORDERED: fentaNYL (PF) 50 MCG/ML 2 ML AMP IVP STA (13:46)
[2020-07-19] MEDS ORDERED: MORPHINE SULFATE 4 MG/ML SYRINGE IV STA (13:54)
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
--- NOTE | 2020-07-19 14:37 | XR ---
EXAMINATION TYPE: XR Hip LT and AP Pelvis DATE OF EXAM: 07/19/2020 COMPARISON: Previous exam 06/24/2020 HISTORY: Trauma and pain TECHNIQUE: A single AP view of the pelvis is obtained. Two views of the left hip are obtained. FINDINGS: There is no acute fracture/dislocation evident in the pelvis. Patient is status post bilat eral hip arthroplasties. The overlying soft tissue appears unremarkable. Two views of left hip show no acute fracture or dislocation. No focal lytic or sclerotic lesion seen in the proximal left femur. The overlying soft tissue is unremarkable. IMPRESSION: There is no acute fracture or dislocation in the pelvis or left hip. Postop changes bila teral hips.
--- NOTE | 2020-07-19 14:37 | CT ---
EXAMINATION TYPE: CT brain rachel wo con DATE OF EXAM: 07/19/2020 COMPARISON: 04/14/2020 HISTORY: Fall, injury CT DLP: 1526.1 mGycm, Automated exposure control for dose reduction was used. CONTRAST: Patient injected with 0 mL of Isovue 300. CT of the brain is performed utilizing 3 mm thick sections through the posterior fossa and 3 mm thick sections through the remaining calvarium. Study is performed within 24 hours of arrival to the hospital. No abnormal hyperdensity is present to suggest an acute intracranial hemorrhage. No mass lesion is evident. No acute infarcts are evident. Ventricles and sulci are mildly prominent for the patient age. The calcification is present throughout the visualized ethmoid air cells.Nasal passages are somewhat full. There is left septal deviation. IMPRESSIONS: 1. Mild age-related atrophy CT cervical spine. COMPARISON: None CT of the cervical spine is performed in the axial plane at 2 mm thick sections. Reconstructed image s in the coronal, and sagittal plane are reviewed on the computer. No acute fractures are evident. Vertebral body alignment is normal. Disc space narrowing is present C3-4. Some minimal posterior vertebral body spurring is noted at this level. Uncovertebral joint hypertrophy is present with moderate foraminal stenosis bilaterally. Vertebral body heights are preserved. No spinal canal stenosis is evident. Remaining neural foraminal are patent. IMPRESSIONS: 1. Degenerative disc changes C3-4 with moderate bilateral foraminal stenosis at this level. 2. No acute osseous abnormality.
[2020-07-19 15:04] LABS: Basophils % (A) 0 %; Eosinophils # (A) 0.1 k/uL (0-0.7); Eosinophils % (A) 1 %; HCT 43.5 % (39.0-53.0); HGB 14.8 gm/dL (13.0-17.5); Lymphocytes # (A) 1.6 k/uL (1.0-4.8); Lymphocytes % (A) 17 %; MCH 29.8 pg (25.0-35.0); MCHC 34.1 g/dL (31.0-37.0); MCV 87.3 fL (80.0-100.0); Mean Platelet Volume 8.4; Monocytes # (A) 0.5 k/uL (0-1.0); Monocytes % (A) 5 %; Neutrophils # (A) 7.4 k/uL (1.3-7.7); Neutrophils % (A) 76 %; Platelet Count 198 k/uL (150-450); RBC 4.98 m/uL (4.30-5.90); RDW 13.6 % (11.5-15.5); WBC 9.8 k/uL (3.8-10.6)
[2020-07-19 15:14] LABS: Partial Thromboplastin Time 23.6 sec (22.0-30.0); Potassium 4.7 mmol/L (3.5-5.1)
[2020-07-19 15:15] LABS: African American GFR (CKD) >90 (>60 ml/min/1.73 sqM); Anion Gap 3 mmol/L; Blood Urea Nitrogen 10 mg/dL (9-20); Calcium 9.5 mg/dL (8.4-10.2); Carbon Dioxide 30 mmol/L (22-30); Chloride 104 mmol/L (98-107); Glucose 244 mg/dL (74-99); Non-African American GFR(CKD) >90 (>60 ml/min/1.73 sqM); Sodium 137 mmol/L (137-145)
--- NOTE | 2020-07-19 16:11 | CT ---
EXAMINATION TYPE: CT hip LT wo con DATE OF EXAM: 07/19/2020 COMPARISON: 10/17/2018, 05/30/2018 HISTORY: Left hip pain post fall. CT DLP: 875 mGycm Automated exposure control for dose reduction was used. TECHNIQUE: Axial images 3 mm thick sections. Reconstructed images in the coronal and sagittal plane a re reviewed. FINDINGS: There is a left hip prosthesis with acetabular component. No acute dislocations are evident. No acute fracture is not identified. Soft tissues appear normal IMPRESSION: NORMAL LEFT HIP WITH PROSTHESIS. NO ACUTE OSSEOUS ABNORMALITY EVIDENT.
[2020-07-19] MEDS ORDERED: DIPH,PERTUS(ACELL)TETVAC-LF 0.5 ML VIAL IM ONE (16:21)
[2020-07-19] MEDS ORDERED: MORPHINE SULFATE 4 MG/ML SYRINGE IVP STA (16:46)
[2020-07-19 17:21] VITALS: BP 167/94; PULSE 90; TEMP 98.7
== END 2020-07-19 17:30 | disposition home or self-care (01) ==
LOC: EC 13:17
DX: M25.552 Pain in left hip (principal); S01.511A Laceration without foreign body of lip, initial encounter; E11.9 Type 2 diabetes mellitus without complications; E78.5 Hyperlipidemia, unspecified; I10 Essential (primary) hypertension; Z79.4 Long term (current) use of insulin; Z79.899 Other long term (current) drug therapy; Z86.73 Personal history of transient ischemic attack (TIA), and cerebral infarction without residual deficits; Z23 Encounter for immunization; Z91.81 History of falling; Z87.891 Personal history of nicotine dependence; Z96.643 Presence of artificial hip joint, bilateral; W01.0XXA Fall on same level from slipping, tripping and stumbling without subsequent striking against object, initial encounter; Y93.89 Activity, other specified; Y92.89 Other specified places as the place of occurrence of the external cause
CPT/HCPCS: 36415; 93005; 80048; 85025; 85610; 85730; 73502; 72125; 70450; 73700; 90715; 99284; 90471; J2270; J3010; 96372

== ENCOUNTER 2020-07-20 20:24 | Emergency (ER) | payer MEDICARE, OTHER ==
[2020-07-20 20:35] VITALS: RESP 18
[2020-07-20] MEDS ORDERED: MORPHINE SULFATE 4 MG/ML SYRINGE IM STA (21:01)
--- NOTE | 2020-07-20 21:23 | ED ---
General Adult HPI - General Chief complaint: Back Pain/Injury Stated complaint: Left side hip pain Time Seen by Provider: 07/20/20 20:44 Source: patient, EMS, RN notes reviewed Mode of arrival: EMS Limitations: no limitations - History of Present Illness Initial comments: 64-year-old male presents to the emergency department for chief plan of back pain. Patient reports he fell yesterday on his left hip. Patient states that he was putting a lock on a woodpile outside in the rain when he slipped on the left hip. Patient reports that he had imaging done here and was discharged home with Percocet. Patient states he took all the Percocet in the past 2 days. Patient returns because the hip pain is now radiating into his mid lower back. Patient concerned he could've injured his lower back. Denies any weakness of the lower extremities aside from pain. Patient has no other complaints at this time including shortness of breath, chest pain, abdominal pain, nausea or vomiting, headache, or visual changes. - Related Data Home Medications Medication Instructions Recorded Confirmed Atorvastatin Calcium [Lipitor] 20 mg PO HS 02/03/14 07/19/20 Insulin Detemir (Levemir) [Levemir] 30 unit SQ HS 02/03/14 07/19/20 metFORMIN HCL [Glucophage] 500 mg PO BID 02/03/14 07/19/20 lisinopriL [Prinivil] 20 mg PO DAILY 08/05/14 07/19/20 INSULIN ASPART (NovoLOG) [[place]ovo[place] 20 unit SQ AC-TID 04/15/20 07/19/20 (formulary)] HYDROcodone/APAP 7.5-325MG [[place] 1 tab PO DAILY PRN 04/16/20 07/19/20 7.5-325] Previous Rx's Medication Instructions Recorded oxyCODONE HCL/ACETAMINOPHEN 1 tab PO Q6HR PRN 3 Days #12 tab 07/19/20 [Percocet 5-325 mg] Allergies Allergy/AdvReac Type Severity Reaction Status Date / Time No Known Allergies Allergy Verified 07/19/20 16:19 Review of Systems ROS Statement: Those systems with pertinent positive or pertinent negative responses have been documented in the HPI. ROS Other: All systems not noted in ROS Statement are negative. Past Medical History Past Medical History: Asthma, COPD, CVA/TIA, Diabetes Mellitus, Hearing Disorder / Deafness, Hyperlipidemia, Hypertension, Osteoarthritis (OA), Skin Disorder Additional Past Medical History / Comment(s): IDDM type II, arthritis in multiple joints, psoriasis, vitiligo, [place], hx of feeling lightheaded and falls., ? Hx of CVA- states left arm weak-unable to lift or reach far-unable to grasp with left hand , weakness left leg and states left foot drops down and catches on everything., states fall after Left Hip surgery with fx., uses wheelchair and cane., lower back and left hip pain. History of Any Multi-Drug Resistant Organisms: None Reported Past Surgical History: Joint Replacement Additional Past Surgical History / Comment(s): Bilateral hip replacements Past Anesthesia/Blood Transfusion Reactions: No Reported Reaction Additional Past Anesthesia/Blood Transfusion Reaction / Comment(s): pt states was unable to receive spinal tap with last surgery d/t arthritis in back, received general anesthetic" Past Psychological History: No Psychological Hx Reported Smoking Status: Former smoker Past Alcohol Use History: None Reported Past Drug Use History: Marijuana - Past Family History Mother Family Medical History: Eye Disorder, Hearing Disorder / Deafness Additional Family Medical History / Comment(s): Father is 90yrs old. He has glaucoma and is [place]. General Exam - General Exam Comments Initial Comments: Left lower extremity: DP pulse 2+. PT pulse 2+. Capillary refill less than 2 seconds. Patient able to flex left hip to 90, full extension. Does have some mild pain with elevation to the lateral aspect of the left hip, no obvious signs of injury. Right lower extremity: DP pulse, PT pulse 2+. Capillary refill less than 2 seconds. Full range of motion of the right hip. No obvious injury. Limitations: no limitations General appearance: alert, in no apparent distress Head exam: Present: atraumatic, normocephalic, normal inspection Eye exam: Present: normal appearance, PERRL, EOMI. Absent: scleral icterus, conjunctival injection, periorbital swelling ENT exam: Present: normal exam, mucous membranes moist Neck exam: Present: normal inspection, full ROM. Absent: tenderness, meningismus, lymphadenopathy Respiratory exam: Present: normal lung sounds bilaterally. Absent: respiratory distress, wheezes, rales, rhonchi, stridor Cardiovascular Exam: Present: regular rate, normal rhythm, normal heart sounds. Absent: systolic murmur, diastolic murmur, rubs, gallop, clicks GI/Abdominal exam: Present: soft, normal bowel sounds. Absent: distended, tenderness, guarding, rebound, rigid Back exam: Present: vertebral tenderness (Minimal generalized lumbar tenderness without pinpoint tenderness. No thoracic spine tenderness.). Absent: CVA tenderness (R), CVA tenderness (L) Neurological exam: Present: alert Course Vital Signs 07/20/20 07/20/20 20:29 21:25 Temperature 97.8 F Pulse Rate 90 Respiratory 18 Rate Blood Pressure 170/91 O2 Sat by Pulse 96 Oximetry Medical Decision Making - Medical Decision Making 64-year-old male presents for back pain. Patient had a mechanical fall yesterday on his left hip. States it is now in his lower back which was not imaged. Patient does have chronic pain in his left hip as well after his replacement. Neurovascular status intact in both lower extremities. Physical exam otherwise as documented. CT lumbar spine was obtained which showed no fracture. There is multilevel degenerative facet arthropathy with spinal stenosis at multiple levels and more severe at L4-L5. No fracture seen. No significant change compared to old exam. CT from yesterday was reviewed which showed a normal left hip prosthesis without acute osseous abnormality evident. Patient was given IM morphine. He had significant improvement in pain. He was able to ambulate with the whole of his walker down the hallway. At this time patient discharged home. Patient will not be given another prescription of pain medicine as he went through a 3 day prescription in one day. He will have to call his doctor for further pain management. He can return here for any worsening symptoms which he is aware of. Patient's son was able to pick him up. I discussed this case with attending Dr. Field who agrees with this assessment and treatment plan. Disposition Clinical Impression: Mechanical back pain, Fall Disposition: HOME SELF-CARE Condition: Good Instructions (If sedation given, give patient instructions): Acute Low Back Pain (ED) Additional Instructions: Please take Motrin and Tylenol for pain. Please follow-up with your orthopedic surgeon as well as primary care. Return to the emergency room for any worsening symptoms. Is patient prescribed a controlled substance at d/c from ED?: No Referrals: Felipe Phillips MD [Primary Care Provider] - 1-2 days Time of Disposition: 22:16
--- NOTE | 2020-07-20 21:34 | CT ---
EXAMINATION TYPE: CT lumbar spine wo con DATE OF EXAM: 07/20/2020 COMPARISON: 06/23/2020 HISTORY: Fall yesterday. Back pain CT DLP: 978.6 mGycm Automated exposure control for dose reduction was used. The lumbar vertebra have normal alignment. There is mild spurring of the endplates. Posterior element s are intact. There is no compression fracture. Sacroiliac joints are intact. There is no lumbar para spinal mass. Sacrum is intact. I see no bony destructive process. IMPRESSION: There is hypertrophic facet arthropathy and ligamentum flavum thickening at L4-5 with resultant bony spinal stenosis. There is less severe spinal stenosis at L3-4 and L2-3. IMPRESSION: No fracture seen. Multilevel degenerative facet arthropathy with spinal stenosis at multiple levels a nd more severe at L4-5. No fracture seen. No significant change compared to old exam.
[2020-07-20] MEDS ORDERED: MORPHINE SULFATE 4 MG/ML SYRINGE IVP STA (22:08)
[2020-07-20] MEDS ORDERED: MORPHINE SULFATE 2 MG/ML SYRINGE IM STA ×2 (22:08→22:21)
[2020-07-20 22:42] VITALS: BP 163/109; PULSE 93; TEMP 98.1
== END 2020-07-20 22:41 | disposition home or self-care (01) ==
LOC: EC 20:24
DX: M54.9 Dorsalgia, unspecified (principal); G89.29 Other chronic pain; M25.552 Pain in left hip; M48.061 Spinal stenosis, lumbar region without neurogenic claudication; M51.36 Other intervertebral disc degeneration, lumbar region; Z96.642 Presence of left artificial hip joint; E11.9 Type 2 diabetes mellitus without complications; J44.9 Chronic obstructive pulmonary disease, unspecified; E78.5 Hyperlipidemia, unspecified; I10 Essential (primary) hypertension; Z79.4 Long term (current) use of insulin; Z79.899 Other long term (current) drug therapy; Z87.891 Personal history of nicotine dependence; Z86.73 Personal history of transient ischemic attack (TIA), and cerebral infarction without residual deficits
CPT/HCPCS: 72131; 99284; 96372 ×2; J2270 ×2

== ENCOUNTER 2020-11-10 22:20 | Emergency (ER) | payer MEDICARE, OTHER ==
[2020-11-10 23:22] VITALS: BP 153/79; PULSE 94; RESP 18; TEMP 98
--- NOTE | 2020-11-11 00:08 | XR ---
EXAMINATION TYPE: XR lumbar spine 2 or 3V DATE OF EXAM: 11/10/2020 COMPARISON: 04/14/2020 HISTORY: Pain. Fall. TECHNIQUE: 3 views FINDINGS: The vertebra have normal alignment. Posterior elements are intact. There is no compression fracture. There is bilateral hip prosthesis. Sacroiliac joints are intact. IMPRESSION: Minor degenerative hypertrophic changes in the lumbar spine. No fracture. No adverse zhong ge.
--- NOTE | 2020-11-11 00:11 | XR ---
EXAMINATION TYPE: XR hand complete RT DATE OF EXAM: 11/10/2020 COMPARISON: NONE HISTORY: Fall. Pain. TECHNIQUE: 3 views FINDINGS: There is some deformity of the proximal fifth metacarpal consistent with an old fracture. I see no acute fracture nor dislocation. The fingers appear intact. Distal radius and ulna are intact. IMPRESSION: No acute abnormality of the right hand.
--- NOTE | 2020-11-11 00:15 | XR ---
EXAMINATION TYPE: XR forearm RT DATE OF EXAM: 11/10/2020 COMPARISON: NONE HISTORY: Fall. Pain. TECHNIQUE: 2 views FINDINGS: Radius and ulna appear intact. I see no fracture nor dislocation. IMPRESSION: Negative right forearm exam.
[2020-11-11] MEDS ORDERED: MORPHINE SULFATE 4 MG/ML SYRINGE IM STA (01:02)
[2020-11-11] MEDS ORDERED: KETOROLAC 15 MG/ML 1 ML VIAL IM STA (01:03)
--- NOTE | 2020-11-11 01:24 | ED ---
General Adult HPI - General Chief complaint: Fall Stated complaint: fall Time Seen by Provider: 11/11/20 00:39 Source: patient Mode of arrival: wheelchair Limitations: no limitations - History of Present Illness Initial comments: 65-year-old male with a past medical history of COPD, diabetes, CVA, hyperlipidemia, hypertension presents to the emergency room for a chief complaint of fall. Patient reports that he was walking earlier today and tripped over a curb and fell on his right hand. Patient states he has pain to the palm of his right hand and ulnar aspect of the right wrist. Patient also has low back pain. Denies any bladder or bowel changes, numbness or tingling in the groin her buttock, weakness of the lower extremities, or fevers. Patient denies hitting his head. He does not take blood thinners.Patient has no other complaints at this time including shortness of breath, chest pain, abdominal pain, nausea or vomiting, headache, or visual changes. - Related Data Home Medications Medication Instructions Recorded Confirmed Atorvastatin Calcium [Lipitor] 20 mg PO HS 02/03/14 07/19/20 Insulin Detemir (Levemir) [Levemir] 30 unit SQ HS 02/03/14 07/19/20 metFORMIN HCL [Glucophage] 500 mg PO BID 02/03/14 07/19/20 lisinopriL [Prinivil] 20 mg PO DAILY 08/05/14 07/19/20 INSULIN ASPART (NovoLOG) [NovoLOG 20 unit SQ AC-TID 04/15/20 07/19/20 (formulary)] HYDROcodone/APAP 7.5-325MG [[place] 1 tab PO DAILY PRN 04/16/20 07/19/20 7.5-325] Previous Rx's Medication Instructions Recorded oxyCODONE HCL/ACETAMINOPHEN 1 tab PO Q6HR PRN 3 Days #12 tab 07/19/20 [Percocet 5-325 mg] Allergies Allergy/AdvReac Type Severity Reaction Status Date / Time No Known Allergies Allergy Verified 11/10/20 23:22 Review of Systems ROS Statement: Those systems with pertinent positive or pertinent negative responses have been documented in the HPI. ROS Other: All systems not noted in ROS Statement are negative. Past Medical History Past Medical History: Asthma, COPD, CVA/TIA, Diabetes Mellitus, Hearing Disorder / Deafness, Hyperlipidemia, Hypertension, Osteoarthritis (OA), Skin Disorder Additional Past Medical History / Comment(s): IDDM type II, arthritis in multiple joints, psoriasis, vitiligo, [place], hx of feeling lightheaded and falls., ? Hx of CVA- states left arm weak-unable to lift or reach far-unable to grasp with left hand , weakness left leg and states left foot drops down and catches on everything., states fall after Left Hip surgery with fx., uses wheelchair and cane., lower back and left hip pain. History of Any Multi-Drug Resistant Organisms: None Reported Past Surgical History: Joint Replacement Additional Past Surgical History / Comment(s): Bilateral hip replacements Past Anesthesia/Blood Transfusion Reactions: No Reported Reaction Additional Past Anesthesia/Blood Transfusion Reaction / Comment(s): pt states was unable to receive spinal tap with last surgery d/t arthritis in back, received general anesthetic" Past Psychological History: No Psychological Hx Reported Smoking Status: Former smoker Past Alcohol Use History: None Reported Past Drug Use History: Marijuana - Past Family History Mother Family Medical History: Eye Disorder, Hearing Disorder / Deafness Additional Family Medical History / Comment(s): Father is 90yrs old. He has glaucoma and is [place]. General Exam - General Exam Comments Initial Comments: Right hand: Patient has tenderness to the palmar aspect of the right hand. There is no ecchymosis or contusion noted. No tenderness to the snuffbox of the right wrist. Patient does have some distal ulnar tenderness. Full range of motion of the right wrist. Radial pulse 2+. No external signs of trauma. [employer] strength 5 out of 5. Limitations: no limitations General appearance: alert, in no apparent distress Head exam: Present: atraumatic, normocephalic, normal inspection Eye exam: Present: normal appearance ENT exam: Present: normal exam, mucous membranes moist Neck exam: Present: normal inspection. Absent: tenderness, meningismus, lymphadenopathy Respiratory exam: Present: normal lung sounds bilaterally. Absent: respiratory distress, wheezes, rales, rhonchi, stridor Cardiovascular Exam: Present: regular rate, normal rhythm, normal heart sounds. Absent: systolic murmur, diastolic murmur, rubs, gallop, clicks GI/Abdominal exam: Present: soft, normal bowel sounds. Absent: distended, tenderness, guarding, rebound, rigid Back exam: Present: vertebral tenderness (Minimal lumbar spine tenderness.) Course Vital Signs 11/10/20 23:18 Temperature 98 F Pulse Rate 94 Respiratory 18 Rate Blood Pressure 153/79 O2 Sat by Pulse 98 Oximetry Medical Decision Making - Medical Decision Making X-ray of the right forearm is negative. Xray the right hand shows no acute abnormality. X-ray of the spine shows mild degenerative hypertrophic changes in the lumbar spine without fracture. At this time patient given pain medication, discharged home with orthopedic follow-up. Disposition Clinical Impression: Hand pain, right, Back pain Disposition: HOME SELF-CARE Condition: Good Instructions (If sedation given, give patient instructions): R.I.C.E. Treatment (ED), Low Back Strain (ED) Additional Instructions: Please take Motrin and Tylenol for pain. Rest ice and elevate the right hand. Keep Mark wrap on his data. Follow-up with your in 1-2 days. If symptoms persist greater than 7 days he may need repeat x-rays. Return to the emergency room for any worsening symptoms. Is patient prescribed a controlled substance at d/c from ED?: No Referrals: Felipe Phillips MD [Primary Care Provider] - 1-2 days Time of Disposition: 01:23
== END 2020-11-11 01:30 | disposition home or self-care (01) ==
LOC: EC 22:20
DX: M79.641 Pain in right hand (principal); M25.531 Pain in right wrist; M54.5 Low back pain; J44.9 Chronic obstructive pulmonary disease, unspecified; E11.9 Type 2 diabetes mellitus without complications; E78.5 Hyperlipidemia, unspecified; I10 Essential (primary) hypertension; M19.90 Unspecified osteoarthritis, unspecified site; H91.90 Unspecified hearing loss, unspecified ear; Z79.4 Long term (current) use of insulin; Z87.891 Personal history of nicotine dependence; Z86.73 Personal history of transient ischemic attack (TIA), and cerebral infarction without residual deficits; W10.1XXA Fall (on)(from) sidewalk curb, initial encounter; Y93.01 Activity, walking, marching and hiking
CPT/HCPCS: 72100; 73090; 73130; 99284; 96372; J1885

== ENCOUNTER 2020-11-11 10:51 | Emergency (ER) | payer MEDICARE, OTHER ==
[2020-11-11 12:41] VITALS: BP 152/98; PULSE 118; RESP 18; TEMP 98.3
[2020-11-11] MEDS ORDERED: KETOROLAC 15 MG/ML 1 ML VIAL IM STA (12:43)
[2020-11-11] MEDS ORDERED: ACET/COD 300 MG/30 MG STARTER PACK 6 TAB BTL PO STA (12:44)
--- NOTE | 2020-11-11 12:46 | ED ---
General Adult HPI - General Chief complaint: Back Pain/Injury Stated complaint: back/hand pain Source: patient, RN notes reviewed Mode of arrival: ambulatory Limitations: no limitations - History of Present Illness Initial comments: Patient is a 65-year-old male that presents to emergency department with back and right hand pain. He was seen in the emergency Department this morning around 1:00 AM, x-rays were all negative, patient was given pain medication and discharged home. He is presenting again for pain management, even after being told that he would've to follow-up with his primary care and/or pain management. He states that his pain is a 10 out of 10 constant since this morning. He stated that he walked here from his house from [address] [place] [address]. He denied any new i njuries or trauma chest pain shortness breath headache nausea vomiting diarrhea constipation fever fatigue chills - Related Data Home Medications Medication Instructions Recorded Confirmed Atorvastatin Calcium [Lipitor] 20 mg PO HS 02/03/14 07/19/20 Insulin Detemir (Levemir) [Levemir] 30 unit SQ HS 02/03/14 07/19/20 metFORMIN HCL [Glucophage] 500 mg PO BID 02/03/14 07/19/20 lisinopriL [Prinivil] 20 mg PO DAILY 08/05/14 07/19/20 INSULIN ASPART (NovoLOG) [NovoLOG 20 unit SQ AC-TID 04/15/20 07/19/20 (formulary)] HYDROcodone/APAP 7.5-325MG [[place] 1 tab PO DAILY PRN 04/16/20 07/19/20 7.5-325] Previous Rx's Medication Instructions Recorded oxyCODONE HCL/ACETAMINOPHEN 1 tab PO Q6HR PRN 3 Days #12 tab 07/19/20 [Percocet 5-325 mg] Allergies Allergy/AdvReac Type Severity Reaction Status Date / Time No Known Allergies Allergy Verified 11/11/20 12:40 Review of Systems ROS Statement: Those systems with pertinent positive or pertinent negative responses have been documented in the HPI. ROS Other: All systems not noted in ROS Statement are negative. Past Medical History Past Medical History: Asthma, COPD, CVA/TIA, Diabetes Mellitus, Hearing Disorder / Deafness, Hyperlipidemia, Hypertension, Osteoarthritis (OA), Skin Disorder Additional Past Medical History / Comment(s): IDDM type II, arthritis in multiple joints, psoriasis, vitiligo, [place], hx of feeling lightheaded and falls., ? Hx of CVA- states left arm weak-unable to lift or reach far-unable to grasp with left hand , weakness left leg and states left foot drops down and catches on everything., states fall after Left Hip surgery with fx., uses wheelchair and cane., lower back and left hip pain. History of Any Multi-Drug Resistant Organisms: None Reported Past Surgical History: Joint Replacement Additional Past Surgical History / Comment(s): Bilateral hip replacements Past Anesthesia/Blood Transfusion Reactions: No Reported Reaction Additional Past Anesthesia/Blood Transfusion Reaction / Comment(s): pt states was unable to receive spinal tap with last surgery d/t arthritis in back, received general anesthetic" Past Psychological History: No Psychological Hx Reported Smoking Status: Former smoker Past Alcohol Use History: None Reported Past Drug Use History: Marijuana - Past Family History Mother Family Medical History: Eye Disorder, Hearing Disorder / Deafness Additional Family Medical History / Comment(s): Father is 90yrs old. He has glaucoma and is [place]. General Exam Limitations: no limitations General appearance: alert, in no apparent distress, other (Patient using cane to assist with walking.) Head exam: Present: atraumatic, normocephalic, normal inspection Eye exam: Present: normal appearance, PERRL, EOMI. Absent: scleral icterus, conjunctival injection, periorbital swelling ENT exam: Present: normal exam, mucous membranes moist Neck exam: Present: normal inspection. Absent: tenderness, meningismus, lymphadenopathy Respiratory exam: Present: normal lung sounds bilaterally. Absent: respiratory distress, wheezes, rales, rhonchi, stridor Cardiovascular Exam: Present: regular rate, normal rhythm, normal heart sounds. Absent: systolic murmur, diastolic murmur, rubs, gallop, clicks GI/Abdominal exam: Present: soft, normal bowel sounds. Absent: distended, tenderness, guarding, rebound, rigid Extremities exam: Present: normal inspection, full ROM, normal capillary refill. Absent: tenderness, pedal edema, joint swelling, calf tenderness Back exam: Present: normal inspection, tenderness (In low back) Neurological exam: Present: alert, oriented X3, CN II-XII intact Psychiatric exam: Present: normal affect, normal mood Skin exam: Present: warm, dry, intact, normal color. Absent: rash Course Vital Signs 11/11/20 12:38 Temperature 98.3 F Pulse Rate 118 H Respiratory 18 Rate Blood Pressure 152/98 O2 Sat by Pulse 97 Oximetry Medical Decision Making - Medical Decision Making 65-year-old male with continued pain from this morning after being discharged from the emergency room area 15 mg of Toradol, Tylenol 3 starter pack ordered. hand, forearm, lumbar spine x-ray all negative this morning. Case discussed with Dr. Redding, patient can discharge home with follow-up to primary care Disposition Clinical Impression: Back pain, Hand pain, right Disposition: HOME SELF-CARE Condition: Stable Instructions (If sedation given, give patient instructions): Acute Low Back Pain (ED) Additional Instructions: Please return to the Emergency Department if symptoms worsen or any other concerns. Follow-up with primary care for pain management, emergency department isn't for pain management for medical emergencies. Continue to rest ice compress elevate and take [id number] pain medications as needed for symptomatically control. Take prescription as directed. Is patient prescribed a controlled substance at d/c from ED?: Yes When asked, does pt state using other controlled substances?: No If prescribed controlled substance>3 days was MAPS reviewed?: Prescribed <3 Days If opioid is for acute pain is fill amount 7 days or less?: Yes Referrals: Catherine Barry MD [Primary Care Provider] - 1-2 days Time of Disposition: 12:54
== END 2020-11-11 14:05 | disposition home or self-care (01) ==
LOC: EC 10:51
DX: M54.5 Low back pain (principal); M79.641 Pain in right hand; E11.9 Type 2 diabetes mellitus without complications; E78.5 Hyperlipidemia, unspecified; I10 Essential (primary) hypertension; Z79.4 Long term (current) use of insulin; Z79.899 Other long term (current) drug therapy; Z86.73 Personal history of transient ischemic attack (TIA), and cerebral infarction without residual deficits; Z87.891 Personal history of nicotine dependence; Z96.643 Presence of artificial hip joint, bilateral; W18.30XA Fall on same level, unspecified, initial encounter
CPT/HCPCS: 99283; 96372; J1885

== ENCOUNTER 2020-12-11 14:36 | Emergency (ER) | payer MEDICARE, OTHER ==
[2020-12-11 14:42] VITALS: BP 159/91; PULSE 95; RESP 17; TEMP 97.9
[2020-12-11] MEDS ORDERED: KETOROLAC 15 MG/ML 1 ML VIAL IM STA (15:12)
[2020-12-11] MEDS ORDERED: ACET/COD 300 MG/30 MG STARTER PACK 6 TAB BTL PO STA (15:12)
--- NOTE | 2020-12-11 15:15 | ED ---
Back Pain HPI - General Chief Complaint: Back Pain/Injury Stated Complaint: lower back pain Time Seen by Provider: 12/11/20 15:06 Source: patient Limitations: no limitations - History of Present Illness Initial Comments: Patient is a 65-year-old male presenting to the emergency department with complaints of lower back pain that started yesterday. No falls or trauma. He has had this in the past. He states after he woke up this morning feels worse so he decided come in to be seen. He did not take any Tylenol or Motrin today. He did try some Tylenol yesterday but it did not help. He denies any fevers or chills, no numbness and tingling into his extremities, no saddle paresthesias. He denies any history of back surgeries. He has no further complaints at this time. - Related Data Home Medications Medication Instructions Recorded Confirmed Atorvastatin Calcium [Lipitor] 20 mg PO HS 02/03/14 07/19/20 Insulin Detemir (Levemir) [Levemir] 30 unit SQ HS 02/03/14 07/19/20 metFORMIN HCL [Glucophage] 500 mg PO BID 02/03/14 07/19/20 lisinopriL [Prinivil] 20 mg PO DAILY 08/05/14 07/19/20 INSULIN ASPART (NovoLOG) [NovoLOG 20 unit SQ AC-TID 04/15/20 07/19/20 (formulary)] HYDROcodone/APAP 7.5-325MG [[place] 1 tab PO DAILY PRN 04/16/20 07/19/20 7.5-325] Previous Rx's Medication Instructions Recorded oxyCODONE HCL/ACETAMINOPHEN 1 tab PO Q6HR PRN 3 Days #12 tab 07/19/20 [Percocet 5-325 mg] Allergies Allergy/AdvReac Type Severity Reaction Status Date / Time No Known Allergies Allergy Verified 12/11/20 14:42 Review of Systems ROS Statement: Those systems with pertinent positive or pertinent negative responses have been documented in the HPI. ROS Other: All systems not noted in ROS Statement are negative. Past Medical History Past Medical History: Asthma, COPD, CVA/TIA, Diabetes Mellitus, Hearing Disorder / Deafness, Hyperlipidemia, Hypertension, Osteoarthritis (OA), Skin Disorder Additional Past Medical History / Comment(s): IDDM type II, arthritis in multiple joints, psoriasis, vitiligo, [place], hx of feeling lightheaded and falls., ? Hx of CVA- states left arm weak-unable to lift or reach far-unable to grasp with left hand , weakness left leg and states left foot drops down and catches on everything., states fall after Left Hip surgery with fx., uses wheelchair and cane., lower back and left hip pain. History of Any Multi-Drug Resistant Organisms: None Reported Past Surgical History: Joint Replacement Additional Past Surgical History / Comment(s): Bilateral hip replacements Past Anesthesia/Blood Transfusion Reactions: No Reported Reaction Additional Past Anesthesia/Blood Transfusion Reaction / Comment(s): pt states was unable to receive spinal tap with last surgery d/t arthritis in back, received general anesthetic" Past Psychological History: Depression Smoking Status: Former smoker Past Alcohol Use History: None Reported Past Drug Use History: Marijuana - Past Family History Mother Family Medical History: Eye Disorder, Hearing Disorder / Deafness Additional Family Medical History / Comment(s): Father is 90yrs old. He has glaucoma and is [place]. General Exam - General Exam Comments Initial Comments: GENERAL: Patient is well-developed and well-nourished. Patient is nontoxic and in no acute distress. HEAD: Atraumatic, normocephalic. EYES: Pupils equal round and reactive to light, extraocular movements intact, sclera anicteric, conjunctiva are normal. Eyelids were unremarkable. ENT: TMs normal, nares patent, oropharynx clear without exudates. Moist mucous membranes. NECK: Normal range of motion, supple without lymphadenopathy or JVD. LUNGS: Unlabored respirations. Breath sounds clear to auscultation bilaterally and equal. No wheezes rales or rhonchi. HEART: Regular rate and rhythm without murmurs, rubs or gallops. ABDOMEN: Soft, nontender, normoactive bowel sounds. No guarding, no rebound. No masses appreciated. : Deferred MUSCULOSKELETAL: Normal extremities with adequate strength and normal range of motion, no pitting or edema. No clubbing or cyanosis. Patient has full pain-free range of motion of the trunk, some tenderness of the lumbar musculature. NEUROLOGICAL: Patient is alert and oriented x 3. Motor and sensory are also intact. Cranial nerves II through XII grossly intact. Symmetrical smile. Normal speech, normal gait. PSYCH: Normal mood, normal affect. SKIN: Warm, Dry, normal turgor, no rashes or lesions noted. Limitations: no limitations Course Vital Signs 12/11/20 14:37 Temperature 97.9 F Pulse Rate 95 Respiratory 17 Rate Blood Pressure 159/91 O2 Sat by Pulse 98 Oximetry Medical Decision Making - Medical Decision Making Patient is a 65-year-old male here for low back pain that started yesterday. No falls or trauma. He has had this in the past and it feels similar. No signs of cardiac cleaning out, his vitals are stable. He is Some mild tenderness to the lumbar area. He is requesting pain medicine. Gave him a shot of Toradol and a Tylenol 3 starter pack. He can also apply heat or ice to the area. If symptoms persist he is to follow-up with his primary care physician. He is in agreement with this plan of care and he is stable for discharge. Discussed with Dr. Redding. Disposition Clinical Impression: Strain of lumbar region Disposition: HOME SELF-CARE Condition: Stable Instructions (If sedation given, give patient instructions): Acute Low Back Pain (ED) Additional Instructions: Please return to the Emergency Department if symptoms worsen or any other concerns. Apply heat and/or ice to the area, gentle stretching. Recommend alternating between Tylenol and ibuprofen for discomfort. Follow-up with your regular family doctor if symptoms persist. Is patient prescribed a controlled substance at d/c from ED?: No Referrals: Felipe Phillips MD [Primary Care Provider] - 1-2 days Time of Disposition: 15:15
== END 2020-12-11 15:24 | disposition home or self-care (01) ==
LOC: EC 14:36
DX: S39.012A Strain of muscle, fascia and tendon of lower back, initial encounter (principal); E11.9 Type 2 diabetes mellitus without complications; J44.9 Chronic obstructive pulmonary disease, unspecified; I10 Essential (primary) hypertension; H91.90 Unspecified hearing loss, unspecified ear; M19.90 Unspecified osteoarthritis, unspecified site; Z79.4 Long term (current) use of insulin; Z86.73 Personal history of transient ischemic attack (TIA), and cerebral infarction without residual deficits; Z87.891 Personal history of nicotine dependence; X58.XXXA Exposure to other specified factors, initial encounter
CPT/HCPCS: 99282; 96372; J1885

== ENCOUNTER 2020-12-11 18:34 | Emergency (ER) | payer MEDICARE, OTHER ==
[2020-12-11 18:54] VITALS: BP 159/92; PULSE 91; RESP 17; TEMP 97.8
[2020-12-11] MEDS ORDERED: MORPHINE SULFATE 4 MG/ML SYRINGE IM STA (19:25)
[2020-12-11] MEDS ORDERED: ONDANSETRON ODT 4 MG TAB PO STA (19:25)
--- NOTE | 2020-12-11 19:28 | ED ---
General Adult HPI - General Chief complaint: Back Pain/Injury Stated complaint: Revisit Back Pain Time Seen by Provider: 12/11/20 19:06 Source: patient Mode of arrival: ambulatory Limitations: no limitations - History of Present Illness Initial comments: 65 -year-old male accompanied a past medical history presents to the emergency room for a chief complaint of back pain. Patient reports that he has chronic back pain that comes and goes. Patient states this started again a couple days ago. He states he woke up with this. He denies any obvious injury but states this does feel like his exacerbation of back pain in the past. He denies fevers. Denies bladder or bowel changes. Does admit that the pain radiates down the left leg. Denies weakness of the legs. Patient reports he was here earlier and got a Toradol shot but it did not help.Patient has no other complaints at this time including shortness of breath, chest pain, abdominal pain, nausea or vomiting, headache, or visual changes. - Related Data Home Medications Medication Instructions Recorded Confirmed Atorvastatin Calcium [Lipitor] 20 mg PO HS 02/03/14 07/19/20 Insulin Detemir (Levemir) [Levemir] 30 unit SQ HS 02/03/14 07/19/20 metFORMIN HCL [Glucophage] 500 mg PO BID 02/03/14 07/19/20 lisinopriL [Prinivil] 20 mg PO DAILY 08/05/14 07/19/20 INSULIN ASPART (NovoLOG) [NovoLOG 20 unit SQ AC-TID 04/15/20 07/19/20 (formulary)] HYDROcodone/APAP 7.5-325MG [[place] 1 tab PO DAILY PRN 04/16/20 07/19/20 7.5-325] Previous Rx's Medication Instructions Recorded oxyCODONE HCL/ACETAMINOPHEN 1 tab PO Q6HR PRN 3 Days #12 tab 07/19/20 [Percocet 5-325 mg] Cyclobenzaprine [Flexeril] 5 mg PO TID #12 tablet 12/11/20 predniSONE [Deltasone] 20 mg PO DAILY #5 tab 12/11/20 Allergies Allergy/AdvReac Type Severity Reaction Status Date / Time No Known Allergies Allergy Verified 12/11/20 14:42 Review of Systems ROS Statement: Those systems with pertinent positive or pertinent negative responses have been documented in the HPI. ROS Other: All systems not noted in ROS Statement are negative. Past Medical History Past Medical History: Asthma, COPD, CVA/TIA, Diabetes Mellitus, Hearing Disorder / Deafness, Hyperlipidemia, Hypertension, Osteoarthritis (OA), Skin Disorder Additional Past Medical History / Comment(s): IDDM type II, arthritis in multiple joints, psoriasis, vitiligo, [place], hx of feeling lightheaded and falls., ? Hx of CVA- states left arm weak-unable to lift or reach far-unable to grasp with left hand , weakness left leg and states left foot drops down and catches on everything., states fall after Left Hip surgery with fx., uses wheelchair and cane., lower back and left hip pain. History of Any Multi-Drug Resistant Organisms: None Reported Past Surgical History: Joint Replacement Additional Past Surgical History / Comment(s): Bilateral hip replacements Past Anesthesia/Blood Transfusion Reactions: No Reported Reaction Additional Past Anesthesia/Blood Transfusion Reaction / Comment(s): pt states was unable to receive spinal tap with last surgery d/t arthritis in back, received general anesthetic" Past Psychological History: Depression Smoking Status: Former smoker Past Alcohol Use History: None Reported Past Drug Use History: Marijuana - Past Family History Mother Family Medical History: Eye Disorder, Hearing Disorder / Deafness Additional Family Medical History / Comment(s): Father is 90yrs old. He has glaucoma and is [place]. General Exam Limitations: no limitations General appearance: alert, in no apparent distress Head exam: Present: atraumatic, normocephalic, normal inspection Eye exam: Present: normal appearance, PERRL, EOMI. Absent: scleral icterus, conjunctival injection, periorbital swelling ENT exam: Present: normal exam, mucous membranes moist Neck exam: Present: normal inspection. Absent: tenderness, meningismus, lymphadenopathy Respiratory exam: Present: normal lung sounds bilaterally. Absent: respiratory distress, wheezes, rales, rhonchi, stridor Cardiovascular Exam: Present: regular rate, normal rhythm, normal heart sounds. Absent: systolic murmur, diastolic murmur, rubs, gallop, clicks GI/Abdominal exam: Present: soft, normal bowel sounds. Absent: distended, tenderness, guarding, rebound, rigid Extremities exam: Present: normal capillary refill (DP pulses 2+ bilaterally, capillary refill less than 2 seconds) Back exam: Present: tenderness (Minimal generalized tenderness of the low back. No point tenderness along the lumbar spine.). Absent: full ROM (Flexion to 45.), CVA tenderness (R), CVA tenderness (L) Course Vital Signs 12/11/20 18:53 Temperature 97.8 F Pulse Rate 91 Respiratory 17 Rate Blood Pressure 159/92 O2 Sat by Pulse 98 Oximetry Medical Decision Making - Medical Decision Making Patient presents today because he states that the shot they gave him did not help and his pain is the same. States Tylenol 3 that he was given doesn't help and he needs [place] 7.5. He denies any red flag symptoms. Patient states his return. Coming more for pain. We will give patient IM pain medicine here in the emergency room. I was going to write him Cl[place] however I did a MAPS report and he had a 30 day supply filled 23 days ago. At this time I cannot write him a prescription for [place], he will need to wait for his refill. However I will give Flexeril and the steroid. He will need to follow-up with his doctor. He will return here for any worsening symptoms. Disposition Clinical Impression: Mechanical back pain, Lumbar radiculopathy Disposition: HOME SELF-CARE Condition: Good Instructions (If sedation given, give patient instructions): Acute Low Back Pain (ED) Additional Instructions: Please take medication as directed. Please follow-up with your doctor. Return to the emergency room for any worsening symptoms. Prescriptions: predniSONE [Deltasone] 20 mg PO DAILY #5 tab Cyclobenzaprine [Flexeril] 5 mg PO TID #12 tablet Is patient prescribed a controlled substance at d/c from ED?: No Referrals: Felipe Phillips MD [Primary Care Provider] - 1-2 days Time of Disposition: 19:48
== END 2020-12-11 20:14 | disposition home or self-care (01) ==
LOC: EC 18:34
DX: M54.16 Radiculopathy, lumbar region (principal); E11.9 Type 2 diabetes mellitus without complications; J44.9 Chronic obstructive pulmonary disease, unspecified; E78.5 Hyperlipidemia, unspecified; I10 Essential (primary) hypertension; M19.90 Unspecified osteoarthritis, unspecified site; F32.9 Major depressive disorder, single episode, unspecified; F12.90 Cannabis use, unspecified, uncomplicated; Z79.4 Long term (current) use of insulin; Z86.73 Personal history of transient ischemic attack (TIA), and cerebral infarction without residual deficits; Z87.891 Personal history of nicotine dependence
CPT/HCPCS: 99283; 96372; J2270

== ENCOUNTER 2021-02-14 22:02 | Emergency (ER) | payer MEDICARE, OTHER ==
[2021-02-14 22:17] VITALS: BP 169/93; PULSE 89; RESP 16; TEMP 97.9
[2021-02-14] MEDS ORDERED: MORPHINE SULFATE 4 MG/ML SYRINGE IM STA (22:29)
--- NOTE | 2021-02-14 22:39 | XR ---
EXAMINATION TYPE: XR wrist complete LT DATE OF EXAM: 02/14/2021 COMPARISON: NONE HISTORY: Wrist pain TECHNIQUE: 4 views FINDINGS: There is some narrowing and spurring at the first carpometacarpal joint. I see no fracture nor dislocation. There are no erosions. Radiocarpal joint is intact. IMPRESSION: Mild arthritic changes at the base of the thumb. No fracture seen.
[2021-02-14] MEDS ORDERED: ACET/COD 300 MG/30 MG STARTER PACK 6 TAB BTL PO STA (22:41)
--- NOTE | 2021-02-14 22:51 | ED ---
Upper Extremity HPI - General Chief Complaint: Extremity Injury, Upper Stated Complaint: Fall, L wrist injury Time Seen by Provider: 02/14/21 22:17 Source: patient Mode of arrival: ambulatory Limitations: no limitations - History of Present Illness Initial Comments: 65-year-old male presents emergency Department with a chief complaint electrical and fall landing on his left hand. Patient reports this occurred earlier today. States most of the pain is located at the base of his wrist and exacerbated with flexion and extension. He denies any paresthesias. Reports the pain is exacerbated with any movement and alleviated at rest. Reports taking [id number] analgesics with no significant improvement in symptoms. He also reports some pain near the base of the thumb. Denies significant ecchymosis erythema or swelling. - Related Data Home Medications Medication Instructions Recorded Confirmed Atorvastatin Calcium [Lipitor] 20 mg PO HS 02/03/14 07/19/20 Insulin Detemir (Levemir) [Levemir] 30 unit SQ HS 02/03/14 07/19/20 metFORMIN HCL [Glucophage] 500 mg PO BID 02/03/14 07/19/20 lisinopriL [Prinivil] 20 mg PO DAILY 08/05/14 07/19/20 INSULIN ASPART (NovoLOG) [NovoLOG 20 unit SQ AC-TID 04/15/20 07/19/20 (formulary)] HYDROcodone/APAP 7.5-325MG [[place] 1 tab PO DAILY PRN 04/16/20 07/19/20 7.5-325] Previous Rx's Medication Instructions Recorded oxyCODONE HCL/ACETAMINOPHEN 1 tab PO Q6HR PRN 3 Days #12 tab 07/19/20 [Percocet 5-325 mg] Cyclobenzaprine [Flexeril] 5 mg PO TID #12 tablet 12/11/20 predniSONE [Deltasone] 20 mg PO DAILY #5 tab 12/11/20 Allergies Allergy/AdvReac Type Severity Reaction Status Date / Time No Known Allergies Allergy Verified 02/14/21 22:13 Review of Systems ROS Statement: Those systems with pertinent positive or pertinent negative responses have been documented in the HPI. ROS Other: All systems not noted in ROS Statement are negative. Past Medical History Past Medical History: Asthma, COPD, CVA/TIA, Diabetes Mellitus, Hearing Disorder / Deafness, Hyperlipidemia, Hypertension, Osteoarthritis (OA), Skin Disorder Additional Past Medical History / Comment(s): IDDM type II, arthritis in multiple joints, psoriasis, vitiligo, [place], hx of feeling lightheaded and falls., ? Hx of CVA- states left arm weak-unable to lift or reach far-unable to grasp with left hand , weakness left leg and states left foot drops down and catches on everything., states fall after Left Hip surgery with fx., uses wheelchair and cane., lower back and left hip pain. History of Any Multi-Drug Resistant Organisms: None Reported Past Surgical History: Joint Replacement Additional Past Surgical History / Comment(s): Bilateral hip replacements Past Anesthesia/Blood Transfusion Reactions: No Reported Reaction Additional Past Anesthesia/Blood Transfusion Reaction / Comment(s): pt states was unable to receive spinal tap with last surgery d/t arthritis in back, received general anesthetic" Past Psychological History: Depression Smoking Status: Former smoker Past Alcohol Use History: None Reported Past Drug Use History: Marijuana - Past Family History Mother Family Medical History: Eye Disorder, Hearing Disorder / Deafness Additional Family Medical History / Comment(s): Father is 90yrs old. He has glaucoma and is [place]. General Exam Limitations: no limitations General appearance: alert, in no apparent distress Head exam: Present: atraumatic, normocephalic, normal inspection Eye exam: Present: normal appearance, PERRL, EOMI Pupils: Present: normal accommodation ENT exam: Present: normal exam, normal oropharynx, mucous membranes moist Neck exam: Present: normal inspection, full ROM. Absent: tenderness Respiratory exam: Present: normal lung sounds bilaterally. Absent: respiratory distress Cardiovascular Exam: Present: regular rate, normal rhythm, normal heart sounds. Absent: systolic murmur Extremities exam: Present: normal inspection ( no signs of swelling ecchymosis or erythema on the left wrist), tenderness (Scaphoid tenderness of the left wrist), normal capillary refill, other (Palpable ulnar and radial possible laterally. Sensation intact in the left upper extremity.). Absent: full ROM (Limited range of motion with flexion and extension of the left wrist), pedal edema, joint swelling, calf tenderness Back exam: Present: normal inspection, full ROM Neurological exam: Present: alert, oriented X3 Psychiatric exam: Present: normal affect, normal mood Skin exam: Present: warm, dry, intact, normal color Course Vital Signs 02/14/21 22:13 Temperature 97.9 F Pulse Rate 89 Respiratory 16 Rate Blood Pressure 169/93 O2 Sat by Pulse 98 Oximetry Procedures - Orthopedic Splinting/Casting Injury #1 Side: left Upper Extremity Injury Location: wrist Upper Extremity Immobilizer: thumb spica, Mark wrap, synthetic pre-padded splint Medical Decision Making - Medical Decision Making 65-year-old male presents to the emergency department with chief complaint of left wrist injury. On Physical examination, he is neurovascularly intact. Thumb spica will be applied. X-rays unremarkable. Advised him to follow-up with energy efficiency specialist for repeat x-rays in 7-10 days. He was given analgesia in emergency department. Will be discharged with Tylenol 3 starter pack. Strict return parameters were thoroughly discussed the patient was understanding and agreeable. Case discussed with Disposition Clinical Impression: Left wrist injury, Left wrist pain Disposition: HOME SELF-CARE Condition: Stable Instructions (If sedation given, give patient instructions): Wrist Injury (ED) Additional Instructions: Please return to the Emergency Department if symptoms worsen or any other concerns. Obtain a repeat x-ray in 7-10 days. Is patient prescribed a controlled substance at d/c from ED?: No Referrals: Catherine Barry MD [Primary Care Provider] - 1-2 days Time of Disposition: 22:51
== END 2021-02-14 23:36 | disposition home or self-care (01) ==
LOC: EC 22:02
DX: S69.92XA Unspecified injury of left wrist, hand and finger(s), initial encounter (principal); J44.9 Chronic obstructive pulmonary disease, unspecified; E11.9 Type 2 diabetes mellitus without complications; I10 Essential (primary) hypertension; E78.5 Hyperlipidemia, unspecified; M19.90 Unspecified osteoarthritis, unspecified site; Z87.891 Personal history of nicotine dependence; Z79.4 Long term (current) use of insulin; Z79.899 Other long term (current) drug therapy; W06.XXXA Fall from bed, initial encounter; Y92.009 Unspecified place in unspecified non-institutional (private) residence as the place of occurrence of the external cause
CPT/HCPCS: 73110; 99283; 96372; 29125; J2270

== ENCOUNTER 2021-03-15 22:32 | Emergency (ER) | payer MEDICARE, OTHER ==
[2021-03-15 22:36] VITALS: RESP 18; TEMP 97.6
[2021-03-15] MEDS ORDERED: KETOROLAC 15 MG/ML 1 ML VIAL IM STA (22:47)
--- NOTE | 2021-03-15 23:11 | ED ---
Fall HPI - General Chief Complaint: Fall Stated Complaint: Fall Time Seen by Provider: 03/15/21 22:38 Source: patient Mode of arrival: ambulatory - History of Present Illness Initial Comments: 65-year-old male presents emergency Department with a chief complaint of fall. Patient reports she was carrying laundry and as he got up on the second step, lost balance and began to fall backwards. States he caught himself on the railing but did fall on his buttocks on his way down. He reports most of the pain is located in the right lumbosacral region without any radiation of the pain. States he is also developed pain in his right hip. States this occurred earlier today and is still able to relate with a cane. He reports weakness in his left leg, however states that is his baseline. He denies any head injuries or loss of consciousness. Denies blood thinners. - Related Data Home Medications Medication Instructions Recorded Confirmed Atorvastatin Calcium [Lipitor] 20 mg PO HS 02/03/14 07/19/20 Insulin Detemir (Levemir) [Levemir] 30 unit SQ HS 02/03/14 07/19/20 metFORMIN HCL [Glucophage] 500 mg PO BID 02/03/14 07/19/20 lisinopriL [Prinivil] 20 mg PO DAILY 08/05/14 07/19/20 INSULIN ASPART (NovoLOG) [NovoLOG 20 unit SQ AC-TID 04/15/20 07/19/20 (formulary)] HYDROcodone/APAP 7.5-325MG [[place] 1 tab PO DAILY PRN 04/16/20 07/19/20 7.5-325] Previous Rx's Medication Instructions Recorded oxyCODONE HCL/ACETAMINOPHEN 1 tab PO Q6HR PRN 3 Days #12 tab 07/19/20 [Percocet 5-325 mg] Cyclobenzaprine [Flexeril] 5 mg PO TID #12 tablet 12/11/20 predniSONE [Deltasone] 20 mg PO DAILY #5 tab 12/11/20 Allergies Allergy/AdvReac Type Severity Reaction Status Date / Time No Known Allergies Allergy Verified 03/15/21 22:36 Review of Systems ROS Statement: Those systems with pertinent positive or pertinent negative responses have been documented in the HPI. ROS Other: All systems not noted in ROS Statement are negative. Past Medical History Past Medical History: Asthma, COPD, CVA/TIA, Diabetes Mellitus, Hearing Disorder / Deafness, Hyperlipidemia, Hypertension, Osteoarthritis (OA), Skin Disorder Additional Past Medical History / Comment(s): IDDM type II, arthritis in multiple joints, psoriasis, vitiligo, [place], hx of feeling lightheaded and falls., ? Hx of CVA- states left arm weak-unable to lift or reach far-unable to grasp with left hand , weakness left leg and states left foot drops down and catches on everything., states fall after Left Hip surgery with fx., uses wheelchair and cane., lower back and left hip pain. History of Any Multi-Drug Resistant Organisms: None Reported Past Surgical History: Joint Replacement Additional Past Surgical History / Comment(s): Bilateral hip replacements Past Anesthesia/Blood Transfusion Reactions: No Reported Reaction Additional Past Anesthesia/Blood Transfusion Reaction / Comment(s): pt states was unable to receive spinal tap with last surgery d/t arthritis in back, received general anesthetic" Past Psychological History: Depression Smoking Status: Former smoker Past Alcohol Use History: None Reported Past Drug Use History: Marijuana - Past Family History Mother Family Medical History: Eye Disorder, Hearing Disorder / Deafness Additional Family Medical History / Comment(s): Father is 90yrs old. He has glaucoma and is [place]. General Exam Limitations: no limitations General appearance: alert, in no apparent distress Head exam: Present: atraumatic, normocephalic, normal inspection. Absent: other (Negative Valdovinos sign, raccoon eyes, hemotympanum.) Eye exam: Present: normal appearance, PERRL, EOMI Pupils: Present: normal accommodation ENT exam: Present: normal exam, normal oropharynx, mucous membranes moist, TM's normal bilaterally, normal external ear exam Neck exam: Present: normal inspection, full ROM. Absent: tenderness Respiratory exam: Present: normal lung sounds bilaterally. Absent: respiratory distress, wheezes, rales, rhonchi, stridor Cardiovascular Exam: Present: regular rate, normal rhythm, normal heart sounds. Absent: diastolic murmur Extremities exam: Present: normal inspection (Psoriasis on the right calf), full ROM, tenderness (Right hip tenderness), normal capillary refill, other (Palpable DP and PT bilaterally). Absent: pedal edema, joint swelling Back exam: Present: normal inspection, full ROM, tenderness, paraspinal tenderness (Right paraspinal tenderness along the sacral spine). Absent: CVA tenderness (R), CVA tenderness (L) Neurological exam: Present: alert, oriented X3 Psychiatric exam: Present: normal affect, normal mood Skin exam: Present: warm, dry, intact, normal color Course Vital Signs 03/15/21 22:33 Temperature 97.6 F Pulse Rate 120 H Respiratory 18 Rate Blood Pressure 120/83 O2 Sat by Pulse 98 Oximetry Medical Decision Making - Medical Decision Making 65-year-old male presents emergency Department with a chief complaint of fall. On physical examination, right hip and right lumbosacral tenderness. He still able to ambulate. Patient was given analgesia. We'll discharge her Tylenol 3 starter pack for symptomatic relief. X-rays of bilateral hips and pelvis are unremarkable. Lumbar spine x-ray revealed degenerative disc disease but no acute fracture or dislocations. Patient discharged and advised to follow PCP. Case discussed with physician. Disposition Clinical Impression: Fall, Lower back pain, Hip pain Disposition: HOME SELF-CARE Condition: Stable Instructions (If sedation given, give patient instructions): Fall Prevention (ED) Additional Instructions: Please return to the Emergency Department if symptoms worsen or any other concerns. Follow up with PCP. Is patient prescribed a controlled substance at d/c from ED?: No Referrals: Catherine Barry MD [Primary Care Provider] - 1-2 days Time of Disposition: 23:30
--- NOTE | 2021-03-15 23:12 | XR ---
EXAMINATION TYPE: XR lumbar spine 2 or 3V DATE OF EXAM: 03/15/2021 COMPARISON: 11/10/2020 HISTORY: Back pain. Fall. TECHNIQUE: Review FINDINGS: The lumbar vertebra have normal alignment. Disc spaces are fairly normal. There is spurring anteriorly throughout the lumbar spine. There is no significant compression deformity. Sacroiliac juliana ints are intact. IMPRESSION: There is increased degenerative spur formation compared to old exam. No fracture seen.
--- NOTE | 2021-03-15 23:13 | XR ---
EXAMINATION TYPE: XR Hip Bilateral and AP pelvis DATE OF EXAM: 03/15/2021 COMPARISON: 05/02/2020 HISTORY: Pain TECHNIQUE: 5 views FINDINGS: There is bilateral hip prosthesis. Components appear in anatomic position. The pelvic ring is intact. Sacroiliac joints are intact. There is no evidence of a fracture. IMPRESSION: No fracture seen. No adverse change compared to old exam.
[2021-03-15] MEDS ORDERED: ACET/COD 300 MG/30 MG STARTER PACK 6 TAB BTL PO STA (23:26)
[2021-03-15 23:46] VITALS: BP 142/91; PULSE 98
== END 2021-03-15 23:54 | disposition home or self-care (01) ==
LOC: EC 22:32
DX: M54.5 Low back pain (principal); M25.551 Pain in right hip; M53.3 Sacrococcygeal disorders, not elsewhere classified; R53.1 Weakness; E11.9 Type 2 diabetes mellitus without complications; I10 Essential (primary) hypertension; J44.9 Chronic obstructive pulmonary disease, unspecified; H91.90 Unspecified hearing loss, unspecified ear; Z87.891 Personal history of nicotine dependence; Z79.4 Long term (current) use of insulin
CPT/HCPCS: 99285; 96372; 72100; 73521; J1885

== ENCOUNTER 2021-03-17 01:56 | Emergency (ER) | payer MEDICARE, OTHER ==
[2021-03-17 02:06] VITALS: RESP 18; TEMP 97.5
[2021-03-17] MEDS ORDERED: SODIUM CHLORIDE 0.9% 1,000 ML IV STA (02:06)
[2021-03-17] MEDS ORDERED: MORPHINE SULFATE 4 MG/ML SYRINGE IV STA (02:06)
--- NOTE | 2021-03-17 02:06 | ED ---
Weakness HPI - General Chief complaint: Fall Stated complaint: Fall, Arm Pain Time Seen by Provider: 03/17/21 01:58 Source: patient, EMS, RN notes reviewed, old records reviewed Mode of arrival: EMS Limitations: no limitations - History of Present Illness Initial comments: This is a 65-year-old male to the ER for evaluation. Patient complaints today for evaluation of fall with history of fall. Patient is having multiple falls with left-sided chest pain rib pain. Patient is concerned for the frequency of his falls patient is complaining of severe left shoulder pain left-sided pain. No shortness of breath denies any tenderness or hitting of his head or neck MD Complaint: difficulty walking -: minutes(s) Location: LUE Quality: aching, dull Consistency: constant Improves with: none Worsens with: movement Context: history of similar Associated Symptoms: denies other symptoms - Related Data Home Medications Medication Instructions Recorded Confirmed Atorvastatin Calcium [Lipitor] 20 mg PO HS 02/03/14 07/19/20 Insulin Detemir (Levemir) [Levemir] 30 unit SQ HS 02/03/14 07/19/20 metFORMIN HCL [Glucophage] 500 mg PO BID 02/03/14 07/19/20 lisinopriL [Prinivil] 20 mg PO DAILY 08/05/14 07/19/20 INSULIN ASPART (NovoLOG) [NovoLOG 20 unit SQ AC-TID 04/15/20 07/19/20 (formulary)] HYDROcodone/APAP 7.5-325MG [[place] 1 tab PO DAILY PRN 04/16/20 07/19/20 7.5-325] Previous Rx's Medication Instructions Recorded oxyCODONE HCL/ACETAMINOPHEN 1 tab PO Q6HR PRN 3 Days #12 tab 07/19/20 [Percocet 5-325 mg] Cyclobenzaprine [Flexeril] 5 mg PO TID #12 tablet 12/11/20 predniSONE [Deltasone] 20 mg PO DAILY #5 tab 12/11/20 HYDROcodone/APAP 7.5-325MG [[place] 1 tab PO Q6HR PRN 3 Days #12 tab 03/17/21 7.5-325] Allergies Allergy/AdvReac Type Severity Reaction Status Date / Time No Known Allergies Allergy Verified 03/17/21 19:42 Review of Systems ROS Statement: Those systems with pertinent positive or pertinent negative responses have been documented in the HPI. ROS Other: All systems not noted in ROS Statement are negative. Past Medical History Past Medical History: Asthma, COPD, CVA/TIA, Diabetes Mellitus, Hearing Disorder / Deafness, Hyperlipidemia, Hypertension, Osteoarthritis (OA), Skin Disorder Additional Past Medical History / Comment(s): IDDM type II, arthritis in multiple joints, psoriasis, vitiligo, [place], hx of feeling lightheaded and falls., ? Hx of CVA- states left arm weak-unable to lift or reach far-unable to grasp with left hand , weakness left leg and states left foot drops down and catches on everything., states fall after Left Hip surgery with fx., uses wheelchair and cane., lower back and left hip pain. History of Any Multi-Drug Resistant Organisms: None Reported Past Surgical History: Joint Replacement Additional Past Surgical History / Comment(s): Bilateral hip replacements Past Anesthesia/Blood Transfusion Reactions: No Reported Reaction Additional Past Anesthesia/Blood Transfusion Reaction / Comment(s): pt states was unable to receive spinal tap with last surgery d/t arthritis in back, received general anesthetic" Past Psychological History: Depression Smoking Status: Former smoker Past Alcohol Use History: None Reported Past Drug Use History: Marijuana - Past Family History Mother Family Medical History: Eye Disorder, Hearing Disorder / Deafness Additional Family Medical History / Comment(s): Father is 90yrs old. He has glaucoma and is [place]. General Exam Limitations: no limitations General appearance: alert, in no apparent distress Head exam: Present: atraumatic, normocephalic, normal inspection Eye exam: Present: normal appearance, PERRL, EOMI. Absent: scleral icterus, conjunctival injection, periorbital swelling ENT exam: Present: normal exam, mucous membranes moist Neck exam: Present: normal inspection. Absent: tenderness, meningismus, lymphadenopathy Respiratory exam: Present: normal lung sounds bilaterally. Absent: respiratory distress, wheezes, rales, rhonchi, stridor Cardiovascular Exam: Present: regular rate, normal rhythm, normal heart sounds. Absent: systolic murmur, diastolic murmur, rubs, gallop, clicks GI/Abdominal exam: Present: soft, normal bowel sounds. Absent: distended, tenderness, guarding, rebound, rigid Extremities exam: Present: tenderness (L shoulder), normal capillary refill. Absent: full ROM, pedal edema, joint swelling, calf tenderness Back exam: Present: normal inspection Neurological exam: Present: alert, oriented X3, CN II-XII intact Psychiatric exam: Present: normal affect, normal mood Skin exam: Present: warm, dry, intact, normal color. Absent: rash Course Vital Signs 03/17/21 03/17/21 02:00 04:01 Temperature 97.5 F L Pulse Rate 79 76 Respiratory 18 18 Rate Blood Pressure 130/74 128/87 O2 Sat by Pulse 98 98 Oximetry - Reevaluation(s) Reevaluation #1: 03/17/21 Patient not requesting pain medication on arrival Medical record is reviewed Patient symptoms are improved here in the ER Patient is in no acute distress Patient informed results questions answered EKG Findings - EKG Comments: EKG Findings:: EKG shows sinus rhythm 85 NE 158 QRS 82 QTC 440 Medical Decision Making - Medical Decision Making 65 male to the ER status post fall trip and fall with history of multiple recent falls. Patient complaining of left shoulder plain and does have left humerus fracture, pain is controlled fracture splinted and patient can be discharged issac e - Lab Data Result diagrams: 03/17/21 02:27 03/17/21 02:27 Lab Results 03/17/21 03/17/21 03/17/21 Range/Units 02:27 02:27 02:27 WBC 8.6 (3.8-10.6) k/uL RBC 4.42 (4.30-5.90) m/uL Hgb 15.4 (13.0-17.5) gm/dL Hct 43.3 (39.0-53.0) % MCV 98.1 (80.0-100.0) fL MCH 34.9 (25.0-35.0) pg MCHC 35.6 (31.0-37.0) g/dL RDW 13.5 (11.5-15.5) % Plt Count 261 (150-450) k/uL MPV 8.4 Neutrophils % 60 % Lymphocytes % 29 % Monocytes % 7 % Eosinophils % 1 % Basophils % 0 % Neutrophils # 5.2 (1.3-7.7) k/uL Lymphocytes # 2.5 (1.0-4.8) k/uL Monocytes # 0.6 (0-1.0) k/uL Eosinophils # 0.1 (0-0.7) k/uL Basophils # 0.0 (0-0.2) k/uL Sodium 135 L (137-145) mmol/L Potassium 4.0 (3.5-5.1) mmol/L Chloride 103 (98-107) mmol/L Carbon Dioxide 21 L (22-30) mmol/L Anion Gap 11 mmol/L BUN 12 (9-20) mg/dL Creatinine 0.55 L (0.66-1.25) mg/dL Est GFR (CKD-EPI)AfAm >90 (>60 ml/min/1.73 sqM) Est GFR (CKD-EPI)NonAf >90 (>60 ml/min/1.73 sqM) Glucose 234 H (74-99) mg/dL Calcium 9.7 (8.4-10.2) mg/dL Phosphorus 3.9 (2.5-4.5) mg/dL Magnesium 1.9 (1.6-2.3) mg/dL Total Bilirubin 0.8 (0.2-1.3) mg/dL AST 24 (17-59) U/L ALT 9 (4-49) U/L Alkaline Phosphatase 63 (38-126) U/L Troponin I <0.012 (0.000-0.034) ng/mL Total Protein 7.2 (6.3-8.2) g/dL Albumin 4.6 (3.5-5.0) g/dL - Radiology Data Radiology results: report reviewed (Chest x-ray and shoulder x-ray do show left humerus fracture), image reviewed Disposition Clinical Impression: Fall, Left humeral fracture Disposition: HOME SELF-CARE Condition: Good Instructions (If sedation given, give patient instructions): Arm Fracture in Adults (ED), Fall Prevention for Older Adults (ED) Is patient prescribed a controlled substance at d/c from ED?: No Referrals: Catherine Barry MD [Primary Care Provider] - 1-2 days
--- NOTE | 2021-03-17 02:21 | XR ---
EXAMINATION TYPE: XR chest 1V DATE OF EXAM: 03/17/2021 COMPARISON: 04/14/2020 HISTORY: Chest pain TECHNIQUE: FINDINGS: Heart and mediastinum are normal. Lungs are clear of infiltrate. Ribs appear intact. There is nondisplaced fracture left humeral neck. Detail is limited. IMPRESSION: No cardiopulmonary disease. Left humeral neck fracture.
--- NOTE | 2021-03-17 02:22 | XR ---
EXAMINATION TYPE: XR shoulder limited LT DATE OF EXAM: 03/17/2021 COMPARISON: NONE HISTORY: Fall. Pain. TECHNIQUE: 2 views FINDINGS: Limited exam shows nondisplaced acute fracture of the humeral neck. There is no dislocation . The AC joint is intact. IMPRESSION: Acute humeral neck fracture.
[2021-03-17 02:54] LABS: ALT 9 U/L (4-49); AST 24 U/L (17-59); African American GFR (CKD) >90 (>60 ml/min/1.73 sqM); Albumin 4.6 g/dL (3.5-5.0); Alkaline Phosphatase 63 U/L (38-126); Anion Gap 11 mmol/L; Blood Urea Nitrogen 12 mg/dL (9-20); Calcium 9.7 mg/dL (8.4-10.2); Carbon Dioxide 21 mmol/L (22-30); Chloride 103 mmol/L (98-107); Glucose 234 mg/dL (74-99); Magnesium 1.9 mg/dL (1.6-2.3); Non-African American GFR(CKD) >90 (>60 ml/min/1.73 sqM); Phosphorus 3.9 mg/dL (2.5-4.5); Sodium 135 mmol/L (137-145); Total Bilirubin 0.8 mg/dL (0.2-1.3); Total Protein 7.2 g/dL (6.3-8.2)
[2021-03-17 03:06] LABS: Basophils % (A) 0 %; Eosinophils # (A) 0.1 k/uL (0-0.7); Eosinophils % (A) 1 %; HCT 43.3 % (39.0-53.0); HGB 15.4 gm/dL (13.0-17.5); Lymphocytes # (A) 2.5 k/uL (1.0-4.8); Lymphocytes % (A) 29 %; MCH 34.9 pg (25.0-35.0); MCHC 35.6 g/dL (31.0-37.0); MCV 98.1 fL (80.0-100.0); Mean Platelet Volume 8.4; Monocytes # (A) 0.6 k/uL (0-1.0); Monocytes % (A) 7 %; Neutrophils # (A) 5.2 k/uL (1.3-7.7); Neutrophils % (A) 60 %; Platelet Count 261 k/uL (150-450); RBC 4.42 m/uL (4.30-5.90); RDW 13.5 % (11.5-15.5); WBC 8.6 k/uL (3.8-10.6)
[2021-03-17] MEDS ORDERED: Acetaminophen-Codeine 300-30mg TAB PO STA (03:21)
[2021-03-17] MEDS ORDERED: ACET/COD 300 MG/30 MG STARTER PACK 6 TAB BTL PO STA (03:21)
[2021-03-17] MEDS ORDERED: KETOROLAC 15 MG/ML 1 ML VIAL IVP STA (03:21)
[2021-03-17 04:02] VITALS: BP 128/87; PULSE 76
== END 2021-03-17 04:02 | disposition home or self-care (01) ==
LOC: EC 01:56
DX: S42.295A Other nondisplaced fracture of upper end of left humerus, initial encounter for closed fracture (principal); E11.9 Type 2 diabetes mellitus without complications; R07.81 Pleurodynia; J44.9 Chronic obstructive pulmonary disease, unspecified; I10 Essential (primary) hypertension; E78.5 Hyperlipidemia, unspecified; H91.90 Unspecified hearing loss, unspecified ear; R26.2 Difficulty in walking, not elsewhere classified; Z79.4 Long term (current) use of insulin; Z87.891 Personal history of nicotine dependence; Z79.899 Other long term (current) drug therapy; Z86.73 Personal history of transient ischemic attack (TIA), and cerebral infarction without residual deficits; W01.0XXA Fall on same level from slipping, tripping and stumbling without subsequent striking against object, initial encounter
CPT/HCPCS: 99284; 96374; 96375; 96361; 36415; 93005; 80053; 83735; 84100; 84484; 85025; 73020; 71045; J2270; J1885

== ENCOUNTER 2021-03-17 19:32 | Emergency (ER) | payer MEDICARE, OTHER ==
[2021-03-17] MEDS ORDERED: HYDROcodone/APAP 10-325MG 1 EACH TAB PO ONE (20:04)
--- NOTE | 2021-03-17 20:31 | ED ---
General Adult HPI - General Chief complaint: Recheck/Abnormal Lab/Rx Stated complaint: Revisit L Shoulder Pain Time Seen by Provider: 03/17/21 19:53 Source: patient, RN notes reviewed Mode of arrival: ambulatory Limitations: no limitations - History of Present Illness Initial comments: Patient is a 65-year-old male that presents to the emergency department complaining of left arm pain. He notes he was seen last night after falling was diagnosed with a humerus fracture. He notes that he was sent home with Tylenol 3's. He notes that he took one but was still having pain so came back to the emergency room for symptomatic control the pain. He denied any new injury or trauma. He notes that he is wearing a sling as told. Sling did appear to be l oose and not snug as it was on discharge. Patient noted that he tried calling his primary care and orthopedist as told to. He notes that he cannot get a hold of either. He notes that he has to call his primary care to set the appointment for the orthopedic. Patient denied any other issues or complaints at this time. - Related Data Home Medications Medication Instructions Recorded Confirmed Atorvastatin Calcium [Lipitor] 20 mg PO HS 02/03/14 07/19/20 Insulin Detemir (Levemir) [Levemir] 30 unit SQ HS 02/03/14 07/19/20 metFORMIN HCL [Glucophage] 500 mg PO BID 02/03/14 07/19/20 lisinopriL [Prinivil] 20 mg PO DAILY 08/05/14 07/19/20 INSULIN ASPART (NovoLOG) [NovoLOG 20 unit SQ AC-TID 04/15/20 07/19/20 (formulary)] HYDROcodone/APAP 7.5-325MG [[place] 1 tab PO DAILY PRN 04/16/20 07/19/20 7.5-325] Previous Rx's Medication Instructions Recorded oxyCODONE HCL/ACETAMINOPHEN 1 tab PO Q6HR PRN 3 Days #12 tab 07/19/20 [Percocet 5-325 mg] Cyclobenzaprine [Flexeril] 5 mg PO TID #12 tablet 12/11/20 predniSONE [Deltasone] 20 mg PO DAILY #5 tab 12/11/20 HYDROcodone/APAP 7.5-325MG [[place] 1 tab PO Q6HR PRN 3 Days #12 tab 03/17/21 7.5325] Allergies Allergy/AdvReac Type Severity Reaction Status Date / Time No Known Allergies Allergy Verified 03/17/21 19:42 Review of Systems ROS Statement: Those systems with pertinent positive or pertinent negative responses have been documented in the HPI. ROS Other: All systems not noted in ROS Statement are negative. Past Medical History Past Medical History: Asthma, COPD, CVA/TIA, Diabetes Mellitus, Hearing Disorder / Deafness, Hyperlipidemia, Hypertension, Osteoarthritis (OA), Skin Disorder Additional Past Medical History / Comment(s): IDDM type II, arthritis in multiple joints, psoriasis, vitiligo, [place], hx of feeling lightheaded and falls., ? Hx of CVA- states left arm weak-unable to lift or reach far-unable to grasp with left hand , weakness left leg and states left foot drops down and catches on everything., states fall after Left Hip surgery with fx., uses wheelchair and cane., lower back and left hip pain. History of Any Multi-Drug Resistant Organisms: None Reported Past Surgical History: Joint Replacement Additional Past Surgical History / Comment(s): Bilateral hip replacements Past Anesthesia/Blood Transfusion Reactions: No Reported Reaction Additional Past Anesthesia/Blood Transfusion Reaction / Comment(s): pt states was unable to receive spinal tap with last surgery d/t arthritis in back, received general anesthetic" Past Psychological History: Depression Smoking Status: Former smoker Past Alcohol Use History: None Reported Past Drug Use History: Marijuana - Past Family History Mother Family Medical History: Eye Disorder, Hearing Disorder / Deafness Additional Family Medical History / Comment(s): Father is 90yrs old. He has glaucoma and is [place]. General Exam Limitations: no limitations General appearance: alert, in no apparent distress Head exam: Present: atraumatic, normocephalic, normal inspection Eye exam: Present: normal appearance, PERRL, EOMI. Absent: scleral icterus, conjunctival injection, periorbital swelling Neck exam: Present: normal inspection Respiratory exam: Present: normal lung sounds bilaterally. Absent: respiratory distress, wheezes, rales, rhonchi, stridor Cardiovascular Exam: Present: regular rate, normal rhythm, normal heart sounds. Absent: systolic murmur, diastolic murmur, rubs, gallop, clicks Extremities exam: Present: normal inspection, full ROM, normal capillary refill, other (Left arm in a sling status post fall with humerus fracture last night.). Absent: tenderness, pedal edema, joint swelling, calf tenderness Neurological exam: Present: alert, oriented X3 Psychiatric exam: Present: normal affect, normal mood Skin exam: Present: warm, dry, intact, normal color. Absent: rash Course Vital Signs 03/17/21 19:42 Temperature 98.3 F Pulse Rate 99 Respiratory 16 Rate Blood Pressure 120/77 O2 Sat by Pulse 99 Oximetry Medical Decision Making - Medical Decision Making 65-year-old male complaining of left shoulder pain. Hasn't been taking his Tylenol threes as prescribed. Orient 10 ordered. Case discussed with Dr. Henley, patient discharge home with Tylenol 3 and follow-up with orthopedics as instructed to yesterday. Disposition Clinical Impression: Left humeral fracture Disposition: HOME SELF-CARE Condition: Stable Instructions (If sedation given, give patient instructions): Arm Fracture in Adults (ED) Additional Instructions: Please return to the Emergency Department if symptoms worsen or any other concerns. Follow-up with primary care orthopedics next 1-2 days. Take pain medication as prescribed. Is patient prescribed a controlled substance at d/c from ED?: Yes If prescribed controlled substance>3 days was MAPS reviewed?: Prescribed <3 Days If opioid is for acute pain is fill amount 7 days or less?: Yes If Rx opioid, was Start Talking consent form obtained?: No Referrals: Catherine Barry MD [Primary Care Provider] - 1-2 days Time of Disposition: 20:53
[2021-03-17 21:00] VITALS: BP 154/86; PULSE 78; RESP 18; TEMP 98
== END 2021-03-17 21:00 | disposition home or self-care (01) ==
LOC: EC 19:32
DX: S42.302A Unspecified fracture of shaft of humerus, left arm, initial encounter for closed fracture (principal); J44.9 Chronic obstructive pulmonary disease, unspecified; I10 Essential (primary) hypertension; E11.9 Type 2 diabetes mellitus without complications; H91.90 Unspecified hearing loss, unspecified ear; E78.5 Hyperlipidemia, unspecified; Z86.73 Personal history of transient ischemic attack (TIA), and cerebral infarction without residual deficits; Z87.891 Personal history of nicotine dependence; Z79.899 Other long term (current) drug therapy; Z79.84 Long term (current) use of oral hypoglycemic drugs; W19.XXXA Unspecified fall, initial encounter
CPT/HCPCS: 99283

== ENCOUNTER → 2021-03-25 | Outpatient (CLI) | payer MEDICARE, OTHER ==
--- NOTE | 2021-03-25 18:10 | CT ---
EXAMINATION TYPE: CT shoulder LT wo con DATE OF EXAM: 03/25/2021 COMPARISON: None HISTORY: left shoulder pain following fall CT DLP: 384.6 mGycm Automated exposure control for dose reduction was used. Contrast: None Technique: Axial images 3 mm thick sections. Reconstructed images in the coronal and sagittal plane. Three-D reconstructed images are performed by the technologist. FINDINGS: The acromioclavicular junction appears normal. Humeral head articulates with the glenoid. There is a fracture of the surgical neck of the humerus. No additional fractures are evident. There i s some lateral subluxation of the proximal portion distal fracture fragment in relation to the david l head. IMPRESSION: 1. FRACTURED SURGICAL NECK OF THE HUMERUS.
== END | disposition home or self-care (01) ==
LOC: RADCTMAIN 14:44
PROVIDERS: ATTEND Physician Assistant
DX: S42.222A 2-part displaced fracture of surgical neck of left humerus, initial encounter for closed fracture (principal); M25.512 Pain in left shoulder; X58.XXXA Exposure to other specified factors, initial encounter

== ENCOUNTER 2021-04-21 23:09 | Emergency (ER) | payer MEDICARE, OTHER ==
[2021-04-21 23:41] VITALS: BP 121/81; PULSE 88; RESP 20; TEMP 98.5
[2021-04-22] MEDS ORDERED: HYDROmorphone 1 MG/ML 1 ML SYRINGE IM STA (00:31)
[2021-04-22] MEDS ORDERED: HYDROcodone/APAP 10-325MG 1 EACH TAB PO ONE (00:31)
--- NOTE | 2021-04-22 00:32 | XR ---
EXAMINATION TYPE: XR shoulder complete LT DATE OF EXAM: 04/21/2021 COMPARISON: March 17, 2021 HISTORY: Pain. TECHNIQUE: 3 views FINDINGS: There is slightly impacted humeral neck fracture. There is bridging callus formation. There is no dislocation. AC joint is intact. There is some angulation at the fracture site. IMPRESSION: There is humeral neck fracture with significant increased displacement and impaction comp ared to last exam.
--- NOTE | 2021-04-22 00:51 | ED ---
Upper Extremity HPI - General Chief Complaint: Extremity Injury, Upper Stated Complaint: Left Shoulder Pain Time Seen by Provider: 04/22/21 00:07 Source: patient Mode of arrival: wheelchair Limitations: no limitations - History of Present Illness Initial Comments: 65-year-old male patient presents to the emergency department today for evaluation of increased left shoulder pain. Patient states he had a fracture of his humerus from a trip and fall on 03-17-21. Patient states that this evening his elderly father fell and he bent down to pick him up forgetting that he had an injured arm. States that he had significant increase to the pain in his shoulder after the attempt at lifting. He denies numbness or tingling to the hand or arm. States he is out of his home [place]. Denies taking any other medications for pain. Denies any other injuries or concerns. - Related Data Home Medications Medication Instructions Recorded Confirmed Atorvastatin Calcium [Lipitor] 20 mg PO HS 02/03/14 07/19/20 Insulin Detemir (Levemir) [Levemir] 30 unit SQ HS 02/03/14 07/19/20 metFORMIN HCL [Glucophage] 500 mg PO BID 02/03/14 07/19/20 lisinopriL [Prinivil] 20 mg PO DAILY 08/05/14 07/19/20 INSULIN ASPART (NovoLOG) [NovoLOG 20 unit SQ AC-TID 04/15/20 07/19/20 (formulary)] HYDROcodone/APAP 7.5-325MG [[place] 1 tab PO DAILY PRN 04/16/20 07/19/20 7.5-325] Previous Rx's Medication Instructions Recorded oxyCODONE HCL/ACETAMINOPHEN 1 tab PO Q6HR PRN 3 Days #12 tab 07/19/20 [Percocet 5-325 mg] Cyclobenzaprine [Flexeril] 5 mg PO TID #12 tablet 12/11/20 predniSONE [Deltasone] 20 mg PO DAILY #5 tab 12/11/20 HYDROcodone/APAP 7.5-325MG [[place] 1 tab PO Q6HR PRN 3 Days #12 tab 03/17/21 7.5-325] Allergies Allergy/AdvReac Type Severity Reaction Status Date / Time No Known Allergies Allergy Verified 04/21/21 23:40 Review of Systems ROS Statement: Those systems with pertinent positive or pertinent negative responses have been documented in the HPI. ROS Other: All systems not noted in ROS Statement are negative. Past Medical History Past Medical History: Asthma, COPD, CVA/TIA, Diabetes Mellitus, Hearing Disorder / Deafness, Hyperlipidemia, Hypertension, Osteoarthritis (OA), Skin Disorder Additional Past Medical History / Comment(s): IDDM type II, arthritis in multiple joints, psoriasis, vitiligo, [place], hx of feeling lightheaded and falls., ? Hx of CVA- states left arm weak-unable to lift or reach far-unable to grasp with left hand , weakness left leg and states left foot drops down and catches on everything., states fall after Left Hip surgery with fx., uses wheelchair and cane., lower back and left hip pain. History of Any Multi-Drug Resistant Organisms: None Reported Past Surgical History: Joint Replacement Additional Past Surgical History / Comment(s): Bilateral hip replacements Past Anesthesia/Blood Transfusion Reactions: No Reported Reaction Additional Past Anesthesia/Blood Transfusion Reaction / Comment(s): pt states was unable to receive spinal tap with last surgery d/t arthritis in back, received general anesthetic" Past Psychological History: Depression Smoking Status: Former smoker Past Alcohol Use History: None Reported Past Drug Use History: Marijuana - Past Family History Mother Family Medical History: Eye Disorder, Hearing Disorder / Deafness Additional Family Medical History / Comment(s): Father is 90yrs old. He has glaucoma and is [place]. General Exam Limitations: no limitations General appearance: alert, in no apparent distress, other (This is a well- developed, well-nourished adult male patient in no acute distress. Vital signs upon presentation are temperature 98.5F, pulse 88, respirations 20, blood pressure 121/81, pulse ox 98% on room air.) Respiratory exam: Present: normal lung sounds bilaterally. Absent: respiratory distress, wheezes, rales, rhonchi, stridor Cardiovascular Exam: Present: regular rate, normal rhythm, normal heart sounds. Absent: systolic murmur, diastolic murmur, rubs, gallop, clicks Extremities exam: Present: normal inspection, tenderness (Shoulder), normal capillary refill, other (Skin to the left arm is pink, warm, dry. Cap refill less than 3 seconds. Radial pulses 2+.). Absent: full ROM (Diminished at the left shoulder due to increased pain with movement), pedal edema, joint swelling, calf tenderness Neurological exam: Present: alert, oriented X3, CN II-XII intact Psychiatric exam: Present: normal affect, normal mood Skin exam: Present: warm, dry, intact, normal color. Absent: rash Course Vital Signs 04/21/21 23:37 Temperature 98.5 F Pulse Rate 88 Respiratory 20 Rate Blood Pressure 121/81 O2 Sat by Pulse 98 Oximetry Medical Decision Making - Medical Decision Making 65-year-old male patient presents for evaluation of left shoulder pain after repeat injury today. Has known left humerus fracture from 03/17/21. X-ray was obtained and showed increased displacement and impaction compared to review his x-ray. I did discuss findings and results with the patient. 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 Instructed to call in the morning for further evaluation. Return parameters were discussed in detail. He verbalizes understanding and agrees with this plan. Case discussed with my attending Dr. Jasso. - Radiology Data Radiology results: report reviewed, image reviewed 3 views of the left shoulder are obtained. Report reviewed in its entirety. Impression by Dr. Corona shows humeral neck fracture with significant increased displacement and impaction compared to last exam Disposition Clinical Impression: Left humeral fracture Disposition: HOME SELF-CARE Condition: Good Instructions (If sedation given, give patient instructions): Proximal Humerus Fracture (ED) Additional Instructions: Follow-up with orthopedics for further evaluation as it is possible. Take medication as directed. Return to the emergency department for any new, worsening, or concerning symptoms. Is patient prescribed a controlled substance at d/c from ED?: No Referrals: Catherine Barry MD [Primary Care Provider] - 1-2 days Time of Disposition: 00:50
== END 2021-04-22 00:55 | disposition home or self-care (01) ==
LOC: EC 23:09
DX: S42.202A Unspecified fracture of upper end of left humerus, initial encounter for closed fracture (principal); J44.9 Chronic obstructive pulmonary disease, unspecified; E11.9 Type 2 diabetes mellitus without complications; E78.5 Hyperlipidemia, unspecified; I10 Essential (primary) hypertension; H91.90 Unspecified hearing loss, unspecified ear; Z87.891 Personal history of nicotine dependence; Z86.73 Personal history of transient ischemic attack (TIA), and cerebral infarction without residual deficits; Z79.899 Other long term (current) drug therapy; Z79.84 Long term (current) use of oral hypoglycemic drugs; W01.0XXA Fall on same level from slipping, tripping and stumbling without subsequent striking against object, initial encounter; Y92.009 Unspecified place in unspecified non-institutional (private) residence as the place of occurrence of the external cause
CPT/HCPCS: 96372; 99283

== ENCOUNTER 2021-05-17 02:41 | Emergency (ER) | payer MEDICARE, OTHER ==
[2021-05-17 02:47] VITALS: BP 157/79; PULSE 73; RESP 19; TEMP 98.4
--- NOTE | 2021-05-17 03:12 | ED ---
Fall HPI - General Chief Complaint: Fall Stated Complaint: Fall, arm injury, back pain Time Seen by Provider: 05/17/21 02:45 Source: patient, RN notes reviewed, old records reviewed Mode of arrival: wheelchair - History of Present Illness Initial Comments: This is a 65-year-old male presenting status post fall. Slip and fall. Patient does walk with a cane. Patient fell on the right forearm right elbow and right side complaining of pain in that right side. No loss of consciousness did not his head. 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 Place Fall Occurred: home Loss of Consciousness: none Prolonged Down Time?: no Symptoms Prior to Fall: none Location - Extremities: Right: Shoulder, Arm, Elbow, Forearm, Hand Severity: moderate Severity scale (1-10): 3 Quality: burning, sharp Context: tripped/slipped Associated Symptoms: denies - Related Data Home Medications Medication Instructions Recorded Confirmed Atorvastatin Calcium [Lipitor] 20 mg PO HS 02/03/14 07/19/20 Insulin Detemir (Levemir) [Levemir] 30 unit SQ HS 02/03/14 07/19/20 metFORMIN HCL [Glucophage] 500 mg PO BID 02/03/14 07/19/20 lisinopriL [Prinivil] 20 mg PO DAILY 08/05/14 07/19/20 INSULIN ASPART (NovoLOG) [NovoLOG 20 unit SQ AC-TID 04/15/20 07/19/20 (formulary)] HYDROcodone/APAP 7.5-325MG [[place] 1 tab PO DAILY PRN 04/16/20 07/19/20 7.5-325] Previous Rx's Medication Instructions Recorded oxyCODONE HCL/ACETAMINOPHEN 1 tab PO Q6HR PRN 3 Days #12 tab 07/19/20 [Percocet 5-325 mg] Cyclobenzaprine [Flexeril] 5 mg PO TID #12 tablet 12/11/20 predniSONE [Deltasone] 20 mg PO DAILY #5 tab 12/11/20 HYDROcodone/APAP 7.5-325MG [[place] 1 tab PO Q6HR PRN 3 Days #12 tab 03/17/21 7.5-325] Allergies Allergy/AdvReac Type Severity Reaction Status Date / Time No Known Allergies Allergy Verified 05/17/21 09:51 Review of Systems ROS Statement: Those systems with pertinent positive or pertinent negative responses have been documented in the HPI. ROS Other: All systems not noted in ROS Statement are negative. Past Medical History Past Medical History: Asthma, COPD, CVA/TIA, Diabetes Mellitus, Hearing Disorder / Deafness, Hyperlipidemia, Hypertension, Osteoarthritis (OA), Skin Disorder Additional Past Medical History / Comment(s): IDDM type II, arthritis in multiple joints, psoriasis, vitiligo, [place], hx of feeling lightheaded and falls., ? Hx of CVA- states left arm weak-unable to lift or reach far-unable to grasp with left hand , weakness left leg and states left foot drops down and catches on everything., states fall after Left Hip surgery with fx., uses wheelchair and cane., lower back and left hip pain, left arm fracture. History of Any Multi-Drug Resistant Organisms: None Reported Past Surgical History: Joint Replacement Additional Past Surgical History / Comment(s): Bilateral hip replacements Past Anesthesia/Blood Transfusion Reactions: No Reported Reaction Additional Past Anesthesia/Blood Transfusion Reaction / Comment(s): pt states was unable to receive spinal tap with last surgery d/t arthritis in back, received general anesthetic" Past Psychological History: Depression Smoking Status: Former smoker Past Alcohol Use History: None Reported Past Drug Use History: Marijuana - Past Family History Mother Family Medical History: Eye Disorder, Hearing Disorder / Deafness Additional Family Medical History / Comment(s): Father is 90yrs old. He has glaucoma and is [place]. General Exam General appearance: alert, in no apparent distress Head exam: Present: atraumatic, normocephalic, normal inspection Eye exam: Present: normal appearance, PERRL, EOMI. Absent: scleral icterus, conjunctival injection, periorbital swelling ENT exam: Present: normal exam, mucous membranes moist Neck exam: Present: normal inspection. Absent: tenderness, meningismus, lymphadenopathy Respiratory exam: Present: normal lung sounds bilaterally. Absent: respiratory distress, wheezes, rales, rhonchi, stridor Cardiovascular Exam: Present: regular rate, normal rhythm, normal heart sounds. Absent: systolic murmur, diastolic murmur, rubs, gallop, clicks GI/Abdominal exam: Present: soft, normal bowel sounds. Absent: distended, tenderness, guarding, rebound, rigid Extremities exam: Present: normal inspection, full ROM, normal capillary refill. Absent: tenderness, pedal edema, joint swelling, calf tenderness Back exam: Present: normal inspection Neurological exam: Present: alert, oriented X3, CN II-XII intact Psychiatric exam: Present: normal affect, normal mood Skin exam: Present: warm, dry, intact, normal color. Absent: rash Course Vital Signs 05/17/21 02:44 Temperature 98.4 F Pulse Rate 73 Respiratory 19 Rate Blood Pressure 157/79 O2 Sat by Pulse 98 Oximetry - Reevaluation(s) Reevaluation #1: Medical record is reviewed Patient symptoms are improved here in the ER Patient family informed results questions answered Patient is in no acute distress Medical Decision Making - Medical Decision Making 65 male presenting after fall. Does suffer hand injury with no fracture. Patient very angry throughout ER stay without getting pain medication. Patient can be discharged home - Radiology Data Radiology results: report reviewed (X-ray shoulder elbow and wrists are negative for traumatic injury), image reviewed Disposition Clinical Impression: Fall, Contusion of right hand, Drug-seeking behavior Disposition: HOME SELF-CARE Condition: Good Instructions (If sedation given, give patient instructions): Fall Prevention for Older Adults (ED), Contusion in Adults (ED) Is patient prescribed a controlled substance at d/c from ED?: No Referrals: Catherine Barry MD [Primary Care Provider] - 1-2 days
--- NOTE | 2021-05-17 03:59 | XR ---
EXAMINATION TYPE: XR shoulder limited RT DATE OF EXAM: 05/17/2021 COMPARISON: NONE HISTORY: Shoulder pain TECHNIQUE: Single view FINDINGS: There is calcification at the greater tuberosity of the humerus. I see no fracture nor disl ocation. The glenohumeral joint appears anatomic. AC joint is intact. IMPRESSION: There is evidence for calcific tendinitis at the shoulder joint. No fracture seen.
--- NOTE | 2021-05-17 04:00 | XR ---
EXAMINATION TYPE: XR elbow limited RT DATE OF EXAM: 05/17/2021 COMPARISON: NONE HISTORY: Pain TECHNIQUE: 2 views FINDINGS: I see no fracture nor dislocation. Joint spaces are normal. There is no sign of elbow joint effusion. IMPRESSION: Negative right elbow exam. No fracture seen.
--- NOTE | 2021-05-17 04:01 | XR ---
EXAMINATION TYPE: XR wrist complete RT DATE OF EXAM: 05/17/2021 COMPARISON: NONE HISTORY: Pain TECHNIQUE: 4 views FINDINGS: There is no sign of fracture nor dislocation. Scaphoid is intact. Joint spaces are fairly n ormal. Metacarpals appear intact. IMPRESSION: Negative right wrist exam.
[2021-05-17] MEDS ORDERED: ACETAMINOPHEN TAB 500 MG TAB PO STA (04:17)
[2021-05-17] MEDS ORDERED: IBUPROFEN 600 MG TAB PO STA (04:17)
== END 2021-05-17 05:20 | disposition home or self-care (01) ==
LOC: EC 02:41
DX: S60.221A Contusion of right hand, initial encounter (principal); M54.9 Dorsalgia, unspecified; E11.9 Type 2 diabetes mellitus without complications; E78.5 Hyperlipidemia, unspecified; J44.9 Chronic obstructive pulmonary disease, unspecified; I10 Essential (primary) hypertension; Z76.5 Malingerer [conscious simulation]; Z79.4 Long term (current) use of insulin; Z86.73 Personal history of transient ischemic attack (TIA), and cerebral infarction without residual deficits; Z87.891 Personal history of nicotine dependence; W01.0XXA Fall on same level from slipping, tripping and stumbling without subsequent striking against object, initial encounter; Y92.009 Unspecified place in unspecified non-institutional (private) residence as the place of occurrence of the external cause
CPT/HCPCS: 99284

== ENCOUNTER 2021-05-17 09:22 | Emergency (ER) | payer MEDICARE, OTHER ==
[2021-05-17 09:51] VITALS: BP 144/80; PULSE 77; RESP 16; TEMP 98.1
[2021-05-17] MEDS ORDERED: ACET/COD 300 MG/30 MG STARTER PACK 6 TAB BTL PO STA (10:04)
--- NOTE | 2021-05-17 10:10 | ED ---
Upper Extremity HPI - General Chief Complaint: Extremity Injury, Upper Stated Complaint: revisit - hand injury Time Seen by Provider: 05/17/21 09:53 Source: patient, RN notes reviewed Mode of arrival: wheelchair Limitations: no limitations - History of Present Illness Initial Comments: Patient is a 65-year-old male that presents to the emergency department complaining of right hand pain. He notes he was seen earlier this morning he was discharged home. He notes that he got several x-rays which were all negative. He was diagnosed with a hand sprain. Patient returns requesting pain medication as she was only given 1000 mg of Tylenol and some Motrin are to discharge. Patient was otherwise well-appearing in no apparent distress or pain. He notes that he needs something until is Wednesday until he can get with his primary care. He denied any new injuries trauma chest pain shortness of breath headache nausea vomiting diarrhea constipation fever fatigue chills. - Related Data Home Medications Medication Instructions Recorded Confirmed Atorvastatin Calcium [Lipitor] 20 mg PO HS 02/03/14 07/19/20 Insulin Detemir (Levemir) [Levemir] 30 unit SQ HS 02/03/14 07/19/20 metFORMIN HCL [Glucophage] 500 mg PO BID 02/03/14 07/19/20 lisinopriL [Prinivil] 20 mg PO DAILY 08/05/14 07/19/20 INSULIN ASPART (NovoLOG) [NovoLOG 20 unit SQ AC-TID 04/15/20 07/19/20 (formulary)] HYDROcodone/APAP 7.5-325MG [[place] 1 tab PO DAILY PRN 04/16/20 07/19/20 7.5-325] Previous Rx's Medication Instructions Recorded oxyCODONE HCL/ACETAMINOPHEN 1 tab PO Q6HR PRN 3 Days #12 tab 07/19/20 [Percocet 5-325 mg] Cyclobenzaprine [Flexeril] 5 mg PO TID #12 tablet 12/11/20 predniSONE [Deltasone] 20 mg PO DAILY #5 tab 12/11/20 HYDROcodone/APAP 7.5-325MG [[place] 1 tab PO Q6HR PRN 3 Days #12 tab 03/17/21 7.5-325] Allergies Allergy/AdvReac Type Severity Reaction Status Date / Time No Known Allergies Allergy Verified 05/17/21 09:51 Review of Systems ROS Statement: Those systems with pertinent positive or pertinent negative responses have been documented in the HPI. ROS Other: All systems not noted in ROS Statement are negative. Past Medical History Past Medical History: Asthma, COPD, CVA/TIA, Diabetes Mellitus, Hearing Disorder / Deafness, Hyperlipidemia, Hypertension, Osteoarthritis (OA), Skin Disorder Additional Past Medical History / Comment(s): IDDM type II, arthritis in multiple joints, psoriasis, vitiligo, CADDO, hx of feeling lightheaded and falls., ? Hx of CVA- states left arm weak-unable to lift or reach far-unable to grasp with left hand , weakness left leg and states left foot drops down and catches on everything., states fall after Left Hip surgery with fx., uses wheelchair and cane., lower back and left hip pain, left arm fracture. History of Any Multi-Drug Resistant Organisms: None Reported Past Surgical History: Joint Replacement Additional Past Surgical History / Comment(s): Bilateral hip replacements Past Anesthesia/Blood Transfusion Reactions: No Reported Reaction Additional Past Anesthesia/Blood Transfusion Reaction / Comment(s): pt states was unable to receive spinal tap with last surgery d/t arthritis in back, received general anesthetic" Past Psychological History: Depression Smoking Status: Former smoker Past Alcohol Use History: None Reported Past Drug Use History: Marijuana - Past Family History Mother Family Medical History: Eye Disorder, Hearing Disorder / Deafness Additional Family Medical History / Comment(s): Father is 90yrs old. He has glaucoma and is [place]. General Exam Limitations: no limitations General appearance: alert, in no apparent distress Head exam: Present: atraumatic, normocephalic, normal inspection Eye exam: Present: normal appearance, PERRL, EOMI. Absent: scleral icterus, conjunctival injection, periorbital swelling Neck exam: Present: normal inspection Respiratory exam: Present: normal lung sounds bilaterally. Absent: respiratory distress, wheezes, rales, rhonchi, stridor Cardiovascular Exam: Present: regular rate, normal rhythm, normal heart sounds. Absent: systolic murmur, diastolic murmur, rubs, gallop, clicks Extremities exam: Present: normal inspection, full ROM, normal capillary refill. Absent: tenderness, pedal edema, joint swelling, calf tenderness Neurological exam: Present: alert, oriented X3 Psychiatric exam: Present: normal affect, normal mood Skin exam: Present: warm, dry, intact, normal color. Absent: rash Course Vital Signs 05/17/21 09:49 Temperature 98.1 F Pulse Rate 77 Respiratory 16 Rate Blood Pressure 144/80 O2 Sat by Pulse 97 Oximetry Medical Decision Making - Medical Decision Making 65-year-old male with right hand pain requesting pain medication. Tylenol 3 starter pack ordered. Patient is agreeable with discharge home with follow-up to primary care on Wednesday for further management. Case discussed with Dr. Mauro, patient discharge home. Disposition Clinical Impression: Right hand pain Disposition: HOME SELF-CARE Condition: Stable Instructions (If sedation given, give patient instructions): Hand Sprain (ED) Additional Instructions: Please return to the Emergency Department if symptoms worsen or any other concerns. Follow-up with primary care 1-2 days. Take Tylenol 3 as prescribed, can take Motrin in between for further pain management. Is patient prescribed a controlled substance at d/c from ED?: No Referrals: Catherine Barry MD [Primary Care Provider] - 1-2 days Time of Disposition: 10:10
[2021-05-17] MEDS: Acetaminophen-Codeine 300-30mg TAB PO STA ×2 (10:30→12:06)
== END 2021-05-17 10:45 | disposition home or self-care (01) ==
LOC: EC 09:22
DX: M79.641 Pain in right hand (principal); I10 Essential (primary) hypertension; E11.9 Type 2 diabetes mellitus without complications; J44.9 Chronic obstructive pulmonary disease, unspecified; E78.5 Hyperlipidemia, unspecified; Z86.73 Personal history of transient ischemic attack (TIA), and cerebral infarction without residual deficits; Z79.4 Long term (current) use of insulin; Z87.891 Personal history of nicotine dependence; Z79.899 Other long term (current) drug therapy; W19.XXXA Unspecified fall, initial encounter
CPT/HCPCS: 99283

== ENCOUNTER 2022-07-07 16:06 | Emergency (ER) | payer MEDICARE, OTHER ==
[2022-07-07] MEDS ORDERED: MORPHINE SULFATE 4 MG/ML SYRINGE IV STA (16:16)
[2022-07-07 16:19] VITALS: TEMP 98.3
--- NOTE | 2022-07-07 16:23 | ED ---
Fall HPI - General Chief Complaint: Fall Stated Complaint: Fall, hip injury Time Seen by Provider: 07/07/22 16:11 - History of Present Illness Initial Comments: Patient is a 66-year-old male presenting to the emergency room via EMS after persistent pain in his left hip following a fall yesterday. He reports that he was utilizing the wall to brace himself as he was going down the hallway yesterday during the evening and when he reached the bathroom opening he lost his balance and fell over. He has a history of a stroke with left-sided weakness causing him to drag his left foot at times. He often utilizes a wheelchair due to his left-sided weakness but was not utilizing a wheelchair last night. He reports hitting the side of his head along with his left hip when he fell but denies any lacerations, loss of consciousness, dizziness, headache or new focal neurological deficits. In addition to his stroke history his past medical history significant for diabetes, hypertension, hyperlipidemia, osteoarthritis with bilateral hip replacement, vitiligo, psoriasis, COPD/asthma and peripheral neuropathy. - Related Data Home Medications Medication Instructions Recorded Confirmed Atorvastatin Calcium [Lipitor] 20 mg PO HS 02/03/14 07/19/20 Insulin Detemir (Levemir) [Levemir] 30 unit SQ HS 02/03/14 07/19/20 metFORMIN HCL [Glucophage] 500 mg PO BID 02/03/14 07/19/20 lisinopriL [Prinivil] 20 mg PO DAILY 08/05/14 07/19/20 INSULIN ASPART (NovoLOG) [[place] 20 unit SQ AC-TID 04/15/20 07/19/20 (formulary)] HYDROcodone/APAP 7.5-325MG [[place] 1 tab PO DAILY PRN 04/16/20 07/19/20 7.5-325] Previous Rx's Medication Instructions Recorded oxyCODONE HCL/ACETAMINOPHEN 1 tab PO Q6HR PRN 3 Days #12 tab 07/19/20 [Percocet 5-325 mg] Cyclobenzaprine [Flexeril] 5 mg PO TID #12 tablet 12/11/20 predniSONE [Deltasone] 20 mg PO DAILY #5 tab 12/11/20 HYDROcodone/APAP 7.5-325MG [[place] 1 tab PO Q6HR PRN 3 Days #12 tab 03/17/21 7.5325] Allergies Allergy/AdvReac Type Severity Reaction Status Date / Time No Known Allergies Allergy Verified 05/17/21 09:51 Review of Systems ROS Statement: Those systems with pertinent positive or pertinent negative responses have been documented in the HPI. ROS Other: All systems not noted in ROS Statement are negative. Past Medical History Past Medical History: Asthma, COPD, CVA/TIA, Diabetes Mellitus, Hearing Disorder / Deafness, Hyperlipidemia, Hypertension, Osteoarthritis (OA), Skin Disorder Additional Past Medical History / Comment(s): IDDM type II, arthritis in multiple joints, psoriasis, vitiligo, [place], hx of feeling lightheaded and falls., ? Hx of CVA- states left arm weak-unable to lift or reach far-unable to grasp with left hand , weakness left leg and states left foot drops down and catches on everything., states fall after Left Hip surgery with fx., uses wheelchair and cane., lower back and left hip pain, left arm fracture. History of Any Multi-Drug Resistant Organisms: None Reported Past Surgical History: Joint Replacement Additional Past Surgical History / Comment(s): Bilateral hip replacements Past Anesthesia/Blood Transfusion Reactions: No Reported Reaction Additional Past Anesthesia/Blood Transfusion Reaction / Comment(s): pt states was unable to receive spinal tap with last surgery d/t arthritis in back, received general anesthetic" Past Psychological History: Depression Smoking Status: Former smoker Past Alcohol Use History: None Reported Past Drug Use History: Marijuana - Past Family History Mother Family Medical History: Eye Disorder, Hearing Disorder / Deafness Additional Family Medical History / Comment(s): Father is 90yrs old. He has glaucoma and is [place]. General Exam Limitations: physical limitation General appearance: alert, in no apparent distress Head exam: Present: atraumatic, normocephalic, normal inspection Eye exam: Present: normal appearance, PERRL, EOMI. Absent: scleral icterus, conjunctival injection, periorbital swelling ENT exam: Present: normal exam, mucous membranes moist Neck exam: Present: normal inspection, full ROM Respiratory exam: Present: normal lung sounds bilaterally. Absent: respiratory distress, wheezes, rales, rhonchi, stridor Cardiovascular Exam: Present: regular rate, normal rhythm, normal heart sounds. Absent: systolic murmur, diastolic murmur, rubs, gallop, clicks GI/Abdominal exam: Present: soft, normal bowel sounds. Absent: distended, tenderness, guarding, rebound, rigid Left Hip exam: Present: full ROM (Limited by pain and weakness secondary to stroke), tenderness. Absent: swelling, laceration, ecchymosis, external rotation, internal rotation, shortening, pelvic stability Neurovascular tendon exam: Present: no vascular compromise Gait: not tested/not observed Back exam: Present: normal inspection Neurological exam: Present: alert, oriented X3, CN II-XII intact, other (Slight left-sided mouth droop) Expanded Neurological exam: Present: protecting the airway Speech: Present: fluid speech Motor strength exam: LUE: 3, LLE: 3 Eye Response: (4) open spontaneously Motor Response: (6) obeys commands Verbal Response: (5) oriented Asha Total: 15 Psychiatric exam: Present: normal affect, normal mood Skin exam: Present: dry, intact, other (Unpigmented skin patches secondary to vitiligo) Course Vital Signs 07/07/22 16:13 Temperature 98.3 F Pulse Rate 85 Respiratory 16 Rate Blood Pressure 170/96 O2 Sat by Pulse 96 Oximetry Medical Decision Making - Medical Decision Making 66-year-old male presenting to the emergency room with complaints of left hip pain after a fall due to unsteady gait without any syncope, dizziness or loss of consciousness. Head trauma noted with known history of CVA we will obtain CT of the brain and cervical spine along with x-ray of left hip. No indication for laboratory studies at this time. Will give morphine for pain and monitor response. Pain improved with morphine. CT of the brain and cervical spine image interpreted by me showing no intracranial hemorrhage or mass and no cervical fracture. X-ray of the left hip and to image interpreted by me showing in place prosthetic without acute fracture. Radiologist report also reviewed. Patient takes [place] normally for pain however medications are currently son's house and not available to at this time will give Tylenol 3 starter pack to utilize in the interim. Will discharge home advised to continue fall precautions utilizing proper supportive devices such as wheelchair and cane. Case discussed with Dr. Mauro. - Radiology Data Radiology results: report reviewed, image reviewed X-ray left hip complete impression by radiologist no evidence of acute fracture. No change in appearance of prosthesis compared to old exam. Computed tomography scan of the brain and cervical spine without contrast interpretation by radiologist moderate spondylosis at C3-4 with 4 mm severe spinal stenosis. Stenosis is not significantly different than old exam. No fracture. Mild cerebral atrophy. No acute intracranial abnormality. No change. Maxillary and ethmoid sinusitis not significantly different man old exam. Cervical vertebrae have normal alignment. There is degenerative disc space narrowing at C3-4 with moderate spurring of the endplates. Posterior elements are intact. No compression fracture. Disposition Clinical Impression: Fall Disposition: HOME SELF-CARE Condition: Stable Instructions (If sedation given, give patient instructions): Fall Prevention for Older Adults (ED) Additional Instructions: Please utilize Tylenol 3 starter pack for pain as needed do not take with other narcotics. Please follow-up with your primary care provider. Utilization of assistive devices including wheelchair and cane encouraged to prevent falls. Please return to the Emergency Department if symptoms worsen or any other concerns. Is patient prescribed a controlled substance at d/c from ED?: No Referrals: Catherine Barry MD [Primary Care Provider] - 1-2 days Time of Disposition: 17:46
--- NOTE | 2022-07-07 16:56 | XR ---
EXAMINATION TYPE: XR Hip Complete LT DATE OF EXAM: 07/07/2022 COMPARISON: 03/15/2021 HISTORY: Pain. Fall. TECHNIQUE: 2 views FINDINGS: There is left hip prosthesis. Components appear intact. No fracture seen. IMPRESSION: No evidence of a fracture. No change in appearance of the prosthesis compared to the old exam.
--- NOTE | 2022-07-07 17:03 | CT ---
EXAMINATION TYPE: CT brain cspine wo con DATE OF EXAM: 07/07/2022 COMPARISON: 07/19/2020 HISTORY: fall CT DLP: 1331.7 mGycm Automated exposure control for dose reduction was used. Images obtained of the brain and cervical spine with no contrast. There is mild cerebral atrophy. There is no mass effect or midline shift. No sign of intracranial hem orrhage. The calvarium is intact. There is mucosal thickening in the left maxillary sinus. There is n ormal aeration of the mastoid sinuses. There is moderate mucosal thickening in the ethmoid sinuses. IMPRESSION: Moderate spondylosis at C3-4 with 4 mm severe spinal stenosis. Stenosis is not significantly differen t than old exam. No fracture. Mild cerebral atrophy. No acute intracranial abnormality. No change. Maxillary and ethmoid sinusitis not significantly different than old exam. The cervical vertebra have normal alignment. There is degenerative disc space narrowing at C3-4 with moderate spurring of the endplates. The posterior elements are intact. No compression fracture.
[2022-07-07] MEDS ORDERED: ACET/COD 300 MG/30 MG STARTER PACK 6 TAB BTL PO STA (17:41)
[2022-07-07 18:19] VITALS: BP 169/89; PULSE 84; RESP 22
== END 2022-07-07 18:19 | disposition home or self-care (01) ==
LOC: EC 16:06
DX: M25.552 Pain in left hip (principal); J44.9 Chronic obstructive pulmonary disease, unspecified; E11.9 Type 2 diabetes mellitus without complications; E78.5 Hyperlipidemia, unspecified; I10 Essential (primary) hypertension; Z79.4 Long term (current) use of insulin; Z86.73 Personal history of transient ischemic attack (TIA), and cerebral infarction without residual deficits; Z79.84 Long term (current) use of oral hypoglycemic drugs; Z87.891 Personal history of nicotine dependence; W18.30XA Fall on same level, unspecified, initial encounter; Y92.89 Other specified places as the place of occurrence of the external cause
CPT/HCPCS: 73502; 72125; 70450; 99284; 96374; J2270

== ENCOUNTER 2023-01-06 04:21 | Emergency (ER) | payer MEDICARE, OTHER ==
[2023-01-06] MEDS ORDERED: MORPHINE SULFATE 4 MG/ML SYRINGE IM STA (04:46)
--- NOTE | 2023-01-06 04:55 | ED ---
General Adult HPI - General Chief complaint: Back Pain/Injury Stated complaint: Fall, Leg pain from waist to feet. Time Seen by Provider: 01/06/23 04:42 Source: patient, RN notes reviewed, old records reviewed Mode of arrival: wheelchair Limitations: no limitations - History of Present Illness Initial comments: 67-year-old male presents for evaluation of low back pain and bilateral hip pain. Patient was stepping to sit into his wheelchair but the wheelchair was not locked and he fell onto his right axilla and low back. No head or neck trauma. No anticoagulation. - Related Data Home Medications Medication Instructions Recorded Confirmed Atorvastatin Calcium [Lipitor] 20 mg PO HS 02/03/14 07/19/20 Insulin Detemir (Levemir) [Levemir] 30 unit SQ HS 02/03/14 07/19/20 metFORMIN HCL [Glucophage] 500 mg PO BID 02/03/14 07/19/20 lisinopriL [Prinivil] 20 mg PO DAILY 08/05/14 07/19/20 INSULIN ASPART (NovoLOG) [[place] 20 unit SQ AC-TID 04/15/20 07/19/20 (formulary)] HYDROcodone/APAP 7.5-325MG [[place] 1 tab PO DAILY PRN 04/16/20 07/19/20 7.5-325] Previous Rx's Medication Instructions Recorded oxyCODONE HCL/ACETAMINOPHEN 1 tab PO Q6HR PRN 3 Days #12 tab 07/19/20 [Percocet 5-325 mg] Cyclobenzaprine [Flexeril] 5 mg PO TID #12 tablet 12/11/20 predniSONE [Deltasone] 20 mg PO DAILY #5 tab 12/11/20 HYDROcodone/APAP 7.5-325MG [[place] 1 tab PO Q6HR PRN 3 Days #12 tab 03/17/21 7.5-325] Ibuprofen [Motrin] 600 mg PO Q8HR PRN #24 tab 01/06/23 Allergies Allergy/AdvReac Type Severity Reaction Status Date / Time No Known Allergies Allergy Verified 01/06/23 04:36 Review of Systems ROS Statement: Those systems with pertinent positive or pertinent negative responses have been documented in the HPI. ROS Other: All systems not noted in ROS Statement are negative. Past Medical History Past Medical History: Asthma, COPD, CVA/TIA, Diabetes Mellitus, Hearing Disorder / Deafness, Hyperlipidemia, Hypertension, Osteoarthritis (OA), Skin Disorder Additional Past Medical History / Comment(s): IDDM type II, arthritis in multiple joints, psoriasis, vitiligo, [place], hx of feeling lightheaded and falls., ? Hx of CVA- states left arm weak-unable to lift or reach far-unable to grasp with left hand , weakness left leg and states left foot drops down and catches on everything., states fall after Left Hip surgery with fx., uses wheelchair and cane., lower back and left hip pain, left arm fracture. History of Any Multi-Drug Resistant Organisms: None Reported Past Surgical History: Joint Replacement Additional Past Surgical History / Comment(s): Bilateral hip replacements Past Anesthesia/Blood Transfusion Reactions: No Reported Reaction Additional Past Anesthesia/Blood Transfusion Reaction / Comment(s): pt states was unable to receive spinal tap with last surgery d/t arthritis in back, received general anesthetic" Past Psychological History: Depression Smoking Status: Former smoker Past Alcohol Use History: None Reported Past Drug Use History: Marijuana - Past Family History Mother Family Medical History: Eye Disorder, Hearing Disorder / Deafness Additional Family Medical History / Comment(s): Father is 90yrs old. He has glaucoma and is [place]. General Exam Limitations: no limitations General appearance: alert, in no apparent distress Head exam: Present: atraumatic, normocephalic Eye exam: Present: normal appearance, PERRL Neck exam: Present: normal inspection. Absent: tenderness, meningismus Respiratory exam: Present: normal lung sounds bilaterally. Absent: respiratory distress, wheezes Cardiovascular Exam: Present: regular rate, normal rhythm GI/Abdominal exam: Present: soft. Absent: distended, tenderness, guarding Extremities exam: Present: normal capillary refill Course Vital Signs 01/06/23 04:33 Temperature 97.6 F Pulse Rate 77 Respiratory 18 Rate Blood Pressure 131/87 O2 Sat by Pulse 99 Oximetry Medical Decision Making - Medical Decision Making Was pt. sent in by a medical professional or institution (NICOLETTE Ulloa, SWIMMING TEACHER, urgent care, hospital, or longterm...) When possible be specific @ -No Did you speak to anyone other than the patient for history (EMS, parent, family, police, friend...)? What history was obtained from this source @ -No Did you review nursing and triage notes (agree or disagree)? Why? @ -I reviewed and agree with nursing and triage notes Were old charts reviewed (outside hosp., previous admission, EMS record, old EKG, old radiological studies, urgent care reports/EKG's, longterm records)? Report findings @ -No old charts were reviewed Differential Diagnosis (chest pain, altered mental status, abdominal pain women, abdominal pain men, vaginal bleeding, weakness, fever, dyspnea, syncope, headache, dizziness, GI bleed, back pain, seizure, CVA, palpatations, mental health, musculoskeletal)? @ Differential Musculoskeletal Muscular strain, contusion, ligament sprain, fracture, arthritis, septic arthritis, bursitis, cellulitis, muscle spasm, nerve compression, DVT, arterial occlusion, herpes zoster, electrolyte abnormality, tumor.... This is not meant to be in all inclusive list EKG interpreted by me (3pts min.). @ -As above X-rays interpreted by me (1pt min.). @ X-rays of the lumbosacral spine and AP pelvis were performed, I do not see any acute fracture or dislocation CT interpreted by me (1pt min.). @ -None done U/S interpreted by me (1pt. min.). @ -None done What testing was considered but not performed or refused? (CT, X-rays, U/S, labs)? Why? @ -None What meds were considered but not given or refused? Why? @ -None Did you discuss the management of the patient with other professionals (professionals i.e. , PA, SWIMMING TEACHER, lab, RT, psych nurse, medical social consultant, club lounge attendant, teacher, disability hearing officer, medical case worker)? Give summary @ -No Was smoking cessation discussed for >3mins.? @ -No Was critical care preformed (if so, how long)? @ -No Were there social determinants of health that impacted care today? How? (Homelessness, low income, unemployed, alcoholism, drug addiction, transportation, low edu. Level, literacy, decrease access to med. care, group home, rehab)? @ -No Was there de-escalation of care discussed even if they declined (Discuss DNR or withdrawal of care, Hospice)? DNR status @ -No What co-morbidities impacted this encounter? (DM, HTN, Smoking, COPD, CAD, Cancer, CVA, ARF, Chemo, Hep., AIDS, mental health diagnosis, sleep apnea, morbid obesity)? @ -None Was patient admitted / discharged? Hospital course, mention meds given and route, prescriptions, significant lab abnormalities, going to OR and other pertinent info. @ Patient with fall onto his buttocks. No evidence of fracture within the pelvis or lumbosacral spine on x-rays. Patient ambulatory in the emergency department. No bowel or bladder dysfunction. No focal neurologic finding. No external signs of trauma. Patient stable for continued outpatient follow-up with his primary care physician and his neurologist. Undiagnosed new problem with uncertain prognosis? @ -No Drug Therapy requiring intensive monitoring for toxicity (Heparin, Nitro, Insulin, Cardizem)? @ -No Were any procedures done? @ -No Diagnosis/symptom? @ -Acute low back pain Acute, or Chronic, or Acute on Chronic? @ -Acute on chronic Uncomplicated (without systemic symptoms) or Complicated (systemic symptoms)? @ -Complicated Side effects of treatment? @ -No Exacerbation, Progression, or Severe Exacerbation? @ -No Poses a threat to life or bodily function? How? (Chest pain, [place], [place], pneumonia, PE, COPD, DKA, ARF, appy, cholecystitis, CVA, Diverticulitis, Homicidal, Suicidal, threat to staff... and all critical care pts) @ -[Low risk Disposition Clinical Impression: Fall, Mechanical back pain Disposition: HOME SELF-CARE Condition: Fair Instructions (If sedation given, give patient instructions): Acute Low Back Pain (ED) Prescriptions: Ibuprofen [Motrin] 600 mg PO Q8HR PRN #24 tab PRN Reason: Pain Is patient prescribed a controlled substance at d/c from ED?: No Referrals: Catherine Barry MD [Primary Care Provider] - 1-2 days Time of Disposition: 06:10
--- NOTE | 2023-01-06 06:05 | XR ---
EXAM: XR Pelvis, 1 or 2 Views CLINICAL HISTORY: ITS.REASON XR Reason: fall TECHNIQUE: Frontal view of the pelvis. COMPARISON: Prior CT pelvis 10/17/2018 FINDINGS: Bones/joints: Similar appearance of bilateral hip prostheses. No evidence of acute fracture or dislocation on limited single frontal view. Soft tissues: Unremarkable. IMPRESSION: Similar appearance of bilateral hip prostheses. No evidence of acute fracture or dislocation on limited single frontal view.
--- NOTE | 2023-01-06 06:07 | XR ---
EXAM: XR Lumbosacral Spine, 4 or 5 Views CLINICAL HISTORY: ITS.REASON XR Reason: fall TECHNIQUE: Frontal, lateral and bilateral oblique views of the lumbar spine. COMPARISON: XR Lumbosacral Spine dated 11/10/20 FINDINGS: Vertebrae: Unremarkable. No acute fracture. Normal alignment. Sacrum/coccyx: Unremarkable as visualized. No acute fracture. Disc spaces: Degenerative changes similar/mildly progressed. Soft tissues: Unremarkable. Vasculature: Aortic calcifications. IMPRESSION: No acute findings in the lumbar spine.
[2023-01-06 06:23] VITALS: BP 152/90; PULSE 85; RESP 16; TEMP 98
== END 2023-01-06 06:23 | disposition home or self-care (01) ==
LOC: EC 04:21
DX: M54.9 Dorsalgia, unspecified (principal); J44.9 Chronic obstructive pulmonary disease, unspecified; E11.9 Type 2 diabetes mellitus without complications; I10 Essential (primary) hypertension; E78.5 Hyperlipidemia, unspecified; M19.90 Unspecified osteoarthritis, unspecified site; F32.A Depression, unspecified; Z86.73 Personal history of transient ischemic attack (TIA), and cerebral infarction without residual deficits; Z87.891 Personal history of nicotine dependence; Z79.84 Long term (current) use of oral hypoglycemic drugs; Z79.4 Long term (current) use of insulin; W18.30XA Fall on same level, unspecified, initial encounter
CPT/HCPCS: 72110; 72170; 99284; 96372; J2270

== ENCOUNTER 2023-01-11 03:56 | Emergency (ER) | payer MEDICARE, OTHER ==
[2023-01-11 04:06] VITALS: RESP 18
[2023-01-11] MEDS ORDERED: MORPHINE SULFATE 4 MG/ML SYRINGE IVP STA (04:38)
--- NOTE | 2023-01-11 04:46 | ED ---
General Adult HPI - General Chief complaint: Back Pain/Injury Stated complaint: Low Back pain, numbness in arms Time Seen by Provider: 01/11/23 04:21 Source: patient, RN notes reviewed, old records reviewed Mode of arrival: wheelchair Limitations: no limitations - History of Present Illness Initial comments: Patient is a 67-year-old male who presents emergency Department complaining of low back pain. Was evaluated 5 days ago for similar complaint. States that 5 days ago he fell trying to sit down into his wheelchair as it slid out from under him. Landed on his bottom. Has been complaining of left lower and mid back pain since then. States he is also having some left pelvis pain with pain radiating down the posterior aspect of his left leg. Denies any urinary or bowel retention or incontinence. Denies any saddle anesthesias. Weakness at baseline in the left lower extremity from possible prior stroke. Patient is also complaining of chronic upper extremity numbness which is going to be worked up with MRIs in the coming weeks. Is concerned as his pain medications that he takes regularly, [place] 10 do not seem to help with his back pain. Presents for further evaluation at this time. - Related Data Home Medications Medication Instructions Recorded Confirmed Atorvastatin Calcium [Lipitor] 20 mg PO HS 02/03/14 07/19/20 Insulin Detemir (Levemir) [Levemir] 30 unit SQ HS 02/03/14 07/19/20 metFORMIN HCL [Glucophage] 500 mg PO BID 02/03/14 07/19/20 lisinopriL [Prinivil] 20 mg PO DAILY 08/05/14 07/19/20 INSULIN ASPART (NovoLOG) [NovoLOG 20 unit SQ AC-TID 04/15/20 07/19/20 (formulary)] HYDROcodone/APAP 7.5-325MG [[place] 1 tab PO DAILY PRN 04/16/20 07/19/20 7.5-325] Previous Rx's Medication Instructions Recorded oxyCODONE HCL/ACETAMINOPHEN 1 tab PO Q6HR PRN 3 Days #12 tab 07/19/20 [Percocet 5-325 mg] Cyclobenzaprine [Flexeril] 5 mg PO TID #12 tablet 12/11/20 predniSONE [Deltasone] 20 mg PO DAILY #5 tab 12/11/20 HYDROcodone/APAP 7.5-325MG [[place] 1 tab PO Q6HR PRN 3 Days #12 tab 03/17/21 7.5-325] Ibuprofen [Motrin] 600 mg PO Q8HR PRN #24 tab 01/06/23 Cyclobenzaprine [Flexeril] 5 mg PO BID PRN 5 Days #10 tablet 01/11/23 Allergies Allergy/AdvReac Type Severity Reaction Status Date / Time No Known Allergies Allergy Verified 01/11/23 04:03 Review of Systems ROS Statement: Those systems with pertinent positive or pertinent negative responses have been documented in the HPI. Review of Systems: CONST: Denies fever EYES: Denies blurry vision ENT: Denies nasal congestion C/V: Denies Chest pain RESP: Denies shortness of breath GI: Denies abdominal pain : Denies dysuria SKIN: Denies rash. MSK: Endorses back pain NEURO: Denies headache ROS Other: All systems not noted in ROS Statement are negative. Past Medical History Past Medical History: Asthma, COPD, CVA/TIA, Diabetes Mellitus, Hearing Disorder / Deafness, Hyperlipidemia, Hypertension, Osteoarthritis (OA), Skin Disorder Additional Past Medical History / Comment(s): IDDM type II, arthritis in multiple joints, psoriasis, vitiligo, [place], hx of feeling lightheaded and falls., ? Hx of CVA- states left arm weak-unable to lift or reach far-unable to grasp with left hand , weakness left leg and states left foot drops down and catches on everything., states fall after Left Hip surgery with fx., uses wheelchair and cane., lower back and left hip pain, left arm fracture. History of Any Multi-Drug Resistant Organisms: None Reported Past Surgical History: Joint Replacement Additional Past Surgical History / Comment(s): Bilateral hip replacements Past Anesthesia/Blood Transfusion Reactions: No Reported Reaction Additional Past Anesthesia/Blood Transfusion Reaction / Comment(s): pt states was unable to receive spinal tap with last surgery d/t arthritis in back, received general anesthetic" Past Psychological History: Depression Smoking Status: Former smoker Past Alcohol Use History: None Reported Past Drug Use History: Marijuana - Past Family History Mother Family Medical History: Eye Disorder, Hearing Disorder / Deafness Additional Family Medical History / Comment(s): Father is 90yrs old. He has glaucoma and is [place]. General Exam - General Exam Comments Initial Comments: General: Appears in no acute distress. HEAD: Normal with no signs of head trauma. EYES: PERRLA, EOMI, conjunctiva normal, no discharge. Pupils 3 mm and equal bilaterally. ENT: Hearing grossly intact, normal oropharynx. RESPIRATORY: Clear breath sounds bilaterally. No wheezes, rales, or rhonchi. C/V: Regular rate and rhythm. S1 and S2 auscultated, peripheral pulses 2+ and intact throughout ABD: Abd is soft, nontender, nondistended EXT: Normal range of motion, no obvious deformity. No midline cervical, thoracic spinal tenderness palpation. Mild midline mid lumbar spine tenderness to palpation but mostly in the left paraspinal muscles of the lumbar spine. Neurovascular intact throughout. SKIN: No rashes or lesions observed on exposed skin. NEURO: Alert and oriented 4. Chronic left lower extremity weakness with foot drag. Neurovascular intact throughout. Subjective numbness in bilateral upper extremities that currently does not appear to be present and is not objectively present. Limitations: no limitations Course Vital Signs 01/11/23 04:03 Temperature 97.8 F Pulse Rate 86 Respiratory 18 Rate Blood Pressure 146/90 O2 Sat by Pulse 100 Oximetry Medical Decision Making - Medical Decision Making Was pt. sent in by a medical professional or institution (, PA, RAND CEMENTER, urgent care, hospital, or assisted...) When possible be specific @ -No Did you speak to anyone other than the patient for history (EMS, parent, family, police, friend...)? What history was obtained from this source @ -No Did you review nursing and triage notes (agree or disagree)? Why? @ -I reviewed and agree with nursing and triage notes Were old charts reviewed (outside hosp., previous admission, EMS record, old EKG, old radiological studies, urgent care reports/EKG's, assisted records)? Report findings @ -Reviewed recent visit from 01/06/2023 Differential Diagnosis (chest pain, altered mental status, abdominal pain women, abdominal pain men, vaginal bleeding, weakness, fever, dyspnea, syncope, headache, dizziness, GI bleed, back pain, seizure, CVA, palpatations, mental health, musculoskeletal)? @ -Differential Musculoskeletal Muscular strain, contusion, ligament sprain, fracture, arthritis, septic arthritis, bursitis, cellulitis, muscle spasm, nerve compression, DVT, arterial occlusion, herpes zoster, electrolyte abnormality, tumor.... This is not meant to be in all inclusive list EKG interpreted by me (3pts min.). @ -None done X-rays interpreted by me (1pt min.). @ -None done CT interpreted by me (1pt min.). @ -CT imaging shows no acute fracture or injury. Patient had degenerative changes of the lumbar spine. U/S interpreted by me (1pt. min.). @ -None done What testing was considered but not performed or refused? (CT, X-rays, U/S, labs)? Why? @ -None What meds were considered but not given or refused? Why? @ -None Did you discuss the management of the patient with other professionals (professionals i.e. DrSteve, PA, RAND CEMENTER, lab, RT, psych nurse, social economist, business lawyer, teacher, information officer, block and case maker)? Give summary @ -No Was smoking cessation discussed for >3mins.? @ -No Was critical care preformed (if so, how long)? @ -No Were there social determinants of health that impacted care today? How? (Homelessness, low income, unemployed, alcoholism, drug addiction, transportation, low edu. Level, literacy, decrease access to med. care, senior care, rehab)? @ -No Was there de-escalation of care discussed even if they declined (Discuss DNR or withdrawal of care, Hospice)? DNR status @ -No What co-morbidities impacted this encounter? (DM, HTN, Smoking, COPD, CAD, Cancer, CVA, ARF, Chemo, Hep., AIDS, mental health diagnosis, sleep apnea, morbid obesity)? @ -None Was patient admitted / discharged? Hospital course, mention meds given and route, prescriptions, significant lab abnormalities, going to OR and other pertinent info. @ -Based on the patient's presentation and physical exam, presents complaining of continued back pain. X-rays obtained the other day revealed no evidence of acute fracture or subluxation. Symptoms due appear to be somewhat related to sciatica on the left however due to increased pain as well as pelvic pain we will obtain CT imaging to rule out occult injury not picked up on x-rays the other day day. He will be given IM morphine. Vital signs within acceptable limits. No concern for cauda equina syndrome at this time. Patient was in agreement this plan. Patient's numbness in upper extremities is chronic and he has upcoming MRI as to further evaluate. CT imaging shows no obvious fracture or subluxation. Degenerative changes in the lumbar spine. I updated the patient. He expressed understanding. He is to follow-up with his neurologist for outpatient MRIs and I recommended he do this. He'll be given a prescription for Flexeril outpatient. I will provide the patient with a prescription for Flexeril. I instructed the patient to follow up with their PCP in the next 1-3 days. I explained that the patient should return to the emergency department if they experience any worsening symptoms. Strict return precautions were discussed with the patient. The patient expressed understanding of these instructions. I answered all questions that the patient had. The patient was discharged home in good condition with their prescriptions and follow up information. Undiagnosed new problem with uncertain prognosis? @ -No Drug Therapy requiring intensive monitoring for toxicity (Heparin, Nitro, Insulin, Cardizem)? @ -No Were any procedures done? @ -No Diagnosis/symptom? @ -Low-back pain secondary to fall Acute, or Chronic, or Acute on Chronic? @ -Acute on chronic Uncomplicated (without systemic symptoms) or Complicated (systemic symptoms)? @ -Uncomplicated Side effects of treatment? @ -none Exacerbation, Progression, or Severe Exacerbation] @ -no Poses a threat to life or bodily function? @ -no Disposition Clinical Impression: Back pain Disposition: HOME SELF-CARE Condition: Good Instructions (If sedation given, give patient instructions): Acute Low Back Pain (ED) Prescriptions: Cyclobenzaprine [Flexeril] 5 mg PO BID PRN 5 Days #10 tablet PRN Reason: Pain Is patient prescribed a controlled substance at d/c from ED?: No Referrals: Catherine Barry MD [Primary Care Provider] - 1-2 days Time of Disposition: 07:21
[2023-01-11] MEDS ORDERED: MORPHINE SULFATE 4 MG/ML SYRINGE IM STA (06:32)
--- NOTE | 2023-01-11 06:32 | CT ---
EXAM: CT Lumbar Spine Without Intravenous Contrast CLINICAL HISTORY: ITS.REASON CT Reason: fall, pain low lumbar/left pelvis TECHNIQUE: Axial computed tomography images of the lumbar spine without intravenous contrast. CTDI is 31.2 mGy and DLP is 1078.1 mGy-cm. This CT exam was performed using one or more of the following dose reduction techniques: automated exposure control, adjustment of the mA and/or kV according to patient size, and/or use of iterative reconstruction technique. COMPARISON: Radiograph dated 01/06/2023 FINDINGS: Vertebrae: Diffuse degenerative changes are seen throughout the lumbar spine characterized by Schmorl's node formation as well as endplate and facet hypertrophy. No evidence of fracture or listhesis. Vertebral body heights and alignment are maintained throughout. Discs/spinal canal/neural foramina: No acute findings. Moderate spinal canal stenosis is seen at L2-3. Moderate to severe spinal stenosis is seen at L3-4. Moderate severe spinal stenosis is seen at L4- 5. Multifocal neural foraminal narrowing is visualized most severe at L3- L5. Soft tissues: Unremarkable. IMPRESSION: Multilevel degenerative change without acute findings.
--- NOTE | 2023-01-11 07:13 | CT ---
EXAMINATION TYPE: CT pelvis wo con DATE OF EXAM: 01/11/2023 COMPARISON: CT pelvis October 17, 2018 HISTORY: Fall injury with pain CT DLP: 1055 mGycm Automated exposure control for dose reduction was used. FINDINGS: Metallic hardware from bilateral hip arthroplasty is redemonstrated. There is no acute displaced frac ture in the pelvis. Pubic symphysis is intact. Sacroiliac joints are symmetric and within normal limi ts. No free fluid in the pelvis. Slightly enlarged prostate consistent with BPH. No suspicious small or large bowel dilatation. IMPRESSION: No acute displaced pelvic bone fracture. No acute posttraumatic finding identified.
[2023-01-11 08:07] VITALS: BP 157/91; PULSE 80; TEMP 97.7
== END 2023-01-11 07:50 | disposition home or self-care (01) ==
LOC: EC 03:56
DX: M54.50 Low back pain, unspecified (principal); E11.9 Type 2 diabetes mellitus without complications; I10 Essential (primary) hypertension; J44.9 Chronic obstructive pulmonary disease, unspecified; E78.5 Hyperlipidemia, unspecified; F12.90 Cannabis use, unspecified, uncomplicated; Z79.4 Long term (current) use of insulin; Z79.84 Long term (current) use of oral hypoglycemic drugs; Z79.899 Other long term (current) drug therapy; Z87.891 Personal history of nicotine dependence; W05.0XXA Fall from non-moving wheelchair, initial encounter
CPT/HCPCS: 72192; 72131; 99284; 96374; 96372; J2270

== ENCOUNTER 2023-02-02 16:50 | Emergency (ER) | payer MEDICARE, OTHER ==
[2023-02-02] MEDS ORDERED: HYDROmorphone 0.5 MG/0.5 ML SYRINGE IM STA ×2 (19:12→19:50)
--- NOTE | 2023-02-02 19:26 | ED ---
General Adult HPI - General Chief complaint: Extremity Injury, Lower Stated complaint: Fall Time Seen by Provider: 02/02/23 19:06 Source: patient, RN notes reviewed Mode of arrival: wheelchair Limitations: no limitations - History of Present Illness Initial comments: 67-year-old presents to the emergency department with a chief complaint of low back pain. Patient reports it was in his basement lost his balance and fell onto his back. He is complaining of low back pain that radiates to his right hip. He denies hitting his head, loss of consciousness, anticoagulant use. He reports that he takes [place] fives 4 times a day. He denies any numbness, tingling, weakness in extremities. - Related Data Home Medications Medication Instructions Recorded Confirmed Atorvastatin Calcium [Lipitor] 20 mg PO HS 02/03/14 07/19/20 Insulin Detemir (Levemir) [Levemir] 30 unit SQ HS 02/03/14 07/19/20 metFORMIN HCL [Glucophage] 500 mg PO BID 02/03/14 07/19/20 lisinopriL [Prinivil] 20 mg PO DAILY 08/05/14 07/19/20 INSULIN ASPART (NovoLOG) [NovoLOG 20 unit SQ AC-TID 04/15/20 07/19/20 (formulary)] HYDROcodone/APAP 7.5-325MG [[place] 1 tab PO DAILY PRN 04/16/20 07/19/20 7.5-325] Previous Rx's Medication Instructions Recorded oxyCODONE HCL/ACETAMINOPHEN 1 tab PO Q6HR PRN 3 Days #12 tab 07/19/20 [Percocet 5-325 mg] Cyclobenzaprine [Flexeril] 5 mg PO TID #12 tablet 12/11/20 predniSONE [Deltasone] 20 mg PO DAILY #5 tab 12/11/20 HYDROcodone/APAP 7.5-325MG [[place] 1 tab PO Q6HR PRN 3 Days #12 tab 03/17/21 7.5-325] Ibuprofen [Motrin] 600 mg PO Q8HR PRN #24 tab 01/06/23 Cyclobenzaprine [Flexeril] 5 mg PO BID PRN 5 Days #10 tablet 01/11/23 Allergies Allergy/AdvReac Type Severity Reaction Status Date / Time No Known Allergies Allergy Verified 01/11/23 04:03 Review of Systems ROS Statement: Those systems with pertinent positive or pertinent negative responses have been documented in the HPI. ROS Other: All systems not noted in ROS Statement are negative. Past Medical History Past Medical History: Asthma, COPD, CVA/TIA, Diabetes Mellitus, Hearing Disorder / Deafness, Hyperlipidemia, Hypertension, Osteoarthritis (OA), Skin Disorder Additional Past Medical History / Comment(s): IDDM type II, arthritis in multiple joints, psoriasis, vitiligo, [place], hx of feeling lightheaded and falls., ? Hx of CVA- states left arm weak-unable to lift or reach far-unable to grasp with left hand , weakness left leg and states left foot drops down and catches on everything., states fall after Left Hip surgery with fx., uses wheelchair and cane., lower back and left hip pain, left arm fracture. History of Any Multi-Drug Resistant Organisms: None Reported Past Surgical History: Joint Replacement Additional Past Surgical History / Comment(s): Bilateral hip replacements Past Anesthesia/Blood Transfusion Reactions: No Reported Reaction Additional Past Anesthesia/Blood Transfusion Reaction / Comment(s): pt states was unable to receive spinal tap with last surgery d/t arthritis in back, received general anesthetic" Past Psychological History: Depression Smoking Status: Former smoker Past Alcohol Use History: None Reported Past Drug Use History: Marijuana - Past Family History Mother Family Medical History: Eye Disorder, Hearing Disorder / Deafness Additional Family Medical History / Comment(s): Father is 90yrs old. He has glaucoma and is [place]. General Exam - General Exam Comments Initial Comments: General: Alert, in no acute distress Head: atraumatic normocephalic. Eyes PERRL, EOMI intact, mucous membranes moist Respiratory: Lungs clear to auscultation bilaterally Cardiovascular: Heart rate regular rate and rhythm Abdominal: Soft without guarding or rebound Extremities: Normal inspection with full range of motion and normal capillary refill Neuroogic: alert and oriented 3, CN II-XII intact, able to ambulate with steady gait Skin: warm dry and intact with normal color Limitations: no limitations Course Vital Signs 02/02/23 02/02/23 02/02/23 17:04 18:49 20:05 Temperature 98.3 F 98.0 F Pulse Rate 109 H 96 89 Respiratory 18 18 16 Rate Blood Pressure 136/77 145/109 154/95 O2 Sat by Pulse 98 98 98 Oximetry Medical Decision Making - Medical Decision Making Was pt. sent in by a medical professional or institution (NICOLETTE Ulloa, TELEGRAPHIC INSTRUMENT SUPERVISOR, urgent care, hospital, or long term...) When possible be specific @ -[No] Did you speak to anyone other than the patient for history (EMS, parent, family, police, friend...)? What history was obtained from this source @ -[No] Did you review nursing and triage notes (agree or disagree)? Why? @ -[I reviewed and agree with nursing and triage notes] Were old charts reviewed (outside hosp., previous admission, EMS record, old EKG, old radiological studies, urgent care reports/EKG's, long term records)? Report findings @ -[No old charts were reviewed] Differential Diagnosis (chest pain, altered mental status, abdominal pain women, abdominal pain men, vaginal bleeding, weakness, fever, dyspnea, syncope, headach e, dizziness, GI bleed, back pain, seizure, CVA, palpatations, mental health, musculoskeletal)? @ -[not applicable] EKG interpreted by me (3pts min.). @ -[As above] X-rays interpreted by me (1pt min.). @ -X-rays negative for any evidence of acute fracture. Total arthroplasty hardware intact CT interpreted by me (1pt min.). @ -[None done] U/S interpreted by me (1pt. min.). @ -[None done] What testing was considered but not performed or refused? (CT, X-rays, U/S, labs)? Why? @ -[None] What meds were considered but not given or refused? Why? @ -[None] Did you discuss the management of the patient with other professionals (professionals i.e. NICOLETTE Ulloa, TELEGRAPHIC INSTRUMENT SUPERVISOR, lab, RT, psych nurse, social media sr strategy manager, tariff supervisor, teacher, sustainability officer, showcase maker)? Give summary @ -[No] Was smoking cessation discussed for >3mins.? @ -[No] Was critical care preformed (if so, how long)? @ -[No] Were there social determinants of health that impacted care today? How? (Homelessness, low income, unemployed, alcoholism, drug addiction, transp ortation, low edu. Level, literacy, decrease access to med. care, care home, rehab)? @ -[No] Was there de-escalation of care discussed even if they declined (Discuss DNR or withdrawal of care, Hospice)? DNR status @ -[No] What co-morbidities impacted this encounter? (DM, HTN, Smoking, COPD, CAD, Cancer, CVA, ARF, Chemo, Hep., AIDS, mental health diagnosis, sleep apnea, morbid obesity)? @ -[None] Was patient admitted / discharged? Hospital course, mention meds given and route, prescriptions, significant lab abnormalities, going to OR and other pertinent info. @ -Discharged. This 67-year-old male presents the emergency department with back pain. Patient had a thorough history and physical exam performed on the ED. Physical exam is essentially unremarkable. Heart rate regular rate and rhythm lungs clear to auscultation bilaterally abdomen soft nontender. Back without step-off. Patient able tingling with a steady gait no focal neuro deficits are noted. Patient was given Dilaudid in the emergency department symptomatic relief. Patient discharged in stable condition. Return precautions discussed at length. Case discussed with SUZANNE Lares who agrees with plan of care Undiagnosed new problem with uncertain prognosis? @ -[No] Drug Therapy requiring intensive monitoring for toxicity (Heparin, Nitro, Insulin, Cardizem)? @ -[No] Were any procedures done? @ -[No] Diagnosis/symptom? @ - Back pain Acute, or Chronic,or Acute on Chronic? @ -Acute on chronic Uncomplicated (without systemic symptoms) or Complicated (systemic symptoms)? @ -uncomplicated Side effects of treatment? @ -[No] Exacerbation, Progression, or Severe Exacerbation? @ -[No] Poses a threat to life or bodily function? How? (Chest pain, [place], PA, pneumonia, PE, COPD, DKA, ARF, appy, cholecystitis, CVA, Diverticulitis, Homicidal, Suicidal, threat to staff... and all critical care pts) @ low likelihood Disposition Clinical Impression: Back pain Disposition: HOME SELF-CARE Condition: Stable Instructions (If sedation given, give patient instructions): Back Pain (ED) Additional Instructions: Please return to the nearest emergency department with symptoms worsen or persist Is patient prescribed a controlled substance at d/c from ED?: No Referrals: Catherine Barry MD [Primary Care Provider] - 1-2 days Time of Disposition: 19:55
--- NOTE | 2023-02-02 19:41 | XR ---
EXAMINATION TYPE: XR lumbar spine 2 or 3V, XR Hip Bilateral 2 views Complete DATE OF EXAM: 02/02/2023 Comparison: 01/06/2023 Clinical History: 67-year-old male with pain after fall Findings: Lumbar spine: 5 lumbar type vertebral bodies. Facet arthropathy mid to lower lumbar spine. Mild degenerative disc d isease and endplate spondylosis throughout. Vertebral body heights are preserved. Degenerative grade 1 retrolisthesis L1-L2 and L2-L3. Remaining alignment is maintained. Hips: Bilateral total hip arthroplasties. Both acetabular cup and femoral stem components of the prosthesis are well seated without periprosthetic fracture. Alignment grossly anatomic. IMPRESSION: 1. Lumbar spine: Mild multilevel degenerative disc disease. Facet arthropathy throughout with similar degenerative grade 1 retrolisthesis L1-L2 and L2-L3. No vertebral compression collapse. 2. Hips: Uncomplicated bilateral total hip arthroplasties.
[2023-02-02 20:06] VITALS: BP 154/95; PULSE 89; RESP 16; TEMP 98
== END 2023-02-02 20:06 | disposition home or self-care (01) ==
LOC: EC 16:50
DX: M43.16 Spondylolisthesis, lumbar region (principal); M47.816 Spondylosis without myelopathy or radiculopathy, lumbar region; M51.36 Other intervertebral disc degeneration, lumbar region; J44.9 Chronic obstructive pulmonary disease, unspecified; E11.9 Type 2 diabetes mellitus without complications; E78.5 Hyperlipidemia, unspecified; I10 Essential (primary) hypertension; M19.90 Unspecified osteoarthritis, unspecified site; F32.A Depression, unspecified; F12.90 Cannabis use, unspecified, uncomplicated; Z87.891 Personal history of nicotine dependence; Z86.73 Personal history of transient ischemic attack (TIA), and cerebral infarction without residual deficits; Z79.4 Long term (current) use of insulin; Z79.1 Long term (current) use of non-steroidal anti-inflammatories (NSAID); Z79.84 Long term (current) use of oral hypoglycemic drugs; Z79.899 Other long term (current) drug therapy; W01.0XXA Fall on same level from slipping, tripping and stumbling without subsequent striking against object, initial encounter
CPT/HCPCS: 72100; 73521; 99283; 96372 ×2; J1170

== ENCOUNTER 2023-02-03 02:47 | Emergency (ER) | payer MEDICARE, OTHER | END 2023-02-03 03:45 | disposition home or self-care (01) | LOC: EC 02:47 | DX: M54.9 Dorsalgia, unspecified (principal); E11.9 Type 2 diabetes mellitus without complications; J44.9 Chronic obstructive pulmonary disease, unspecified; I10 Essential (primary) hypertension; Z87.891 Personal history of nicotine dependence | CPT/HCPCS: 99282 ==

== ENCOUNTER 2023-02-05 19:18 | Inpatient (IN) | payer MEDICARE, OTHER ==
[2023-02-05] MEDS ORDERED: NITROGLYCERIN SL TABS 0.4 MG TAB SUBLINGUAL STA ×3 (19:26)
[2023-02-05] MEDS ORDERED: ASPIRIN 81 MG PO STA (19:26)
--- NOTE | 2023-02-05 19:29 | ED ---
General Adult HPI - General Chief complaint: Chest Pain Stated complaint: Chest Pain Time Seen by Provider: 02/05/23 19:20 Source: patient, EMS, RN notes reviewed Mode of arrival: EMS Limitations: no limitations - History of Present Illness Initial comments: Patient is a pleasant 67-year-old male presenting to the emergency department with concerns with chest discomfort. Onset of symptoms was around 20 minutes ago. Patient did have a little bit of discomfort earlier. Discomfort has somewhat improved and is currently rated 7/10. Discomfort feels like an ache with some radiation towards left arm. Patient has some sweating earlier. No nausea. No dyspnea. No history of similar symptoms previously - Related Data Home Medications Medication Instructions Recorded Confirmed Atorvastatin Calcium [Lipitor] 20 mg PO HS 02/03/14 07/19/20 Insulin Detemir (Levemir) [Levemir] 30 unit SQ HS 02/03/14 07/19/20 metFORMIN HCL [Glucophage] 500 mg PO BID 02/03/14 07/19/20 lisinopriL [Prinivil] 20 mg PO DAILY 08/05/14 07/19/20 INSULIN ASPART (NovoLOG) [NovoLOG 20 unit SQ AC-TID 04/15/20 07/19/20 (formulary)] HYDROcodone/APAP 7.5-325MG [[place] 1 tab PO DAILY PRN 04/16/20 07/19/20 7.5-325] Previous Rx's Medication Instructions Recorded oxyCODONE HCL/ACETAMINOPHEN 1 tab PO Q6HR PRN 3 Days #12 tab 07/19/20 [Percocet 5-325 mg] Cyclobenzaprine [Flexeril] 5 mg PO TID #12 tablet 12/11/20 predniSONE [Deltasone] 20 mg PO DAILY #5 tab 12/11/20 HYDROcodone/APAP 7.5-325MG [[place] 1 tab PO Q6HR PRN 3 Days #12 tab 03/17/21 7.5-325] Ibuprofen [Motrin] 600 mg PO Q8HR PRN #24 tab 01/06/23 Cyclobenzaprine [Flexeril] 5 mg PO BID PRN 5 Days #10 tablet 01/11/23 Allergies Allergy/AdvReac Type Severity Reaction Status Date / Time No Known Allergies Allergy Verified 01/11/23 04:03 Review of Systems ROS Statement: Those systems with pertinent positive or pertinent negative responses have been documented in the HPI. ROS Other: All systems not noted in ROS Statement are negative. Constitutional: Denies: fever Eyes: Denies: eye pain ENT: Denies: ear pain Respiratory: Denies: cough Cardiovascular: Reports: as per HPI, chest pain Endocrine: Denies: fatigue Gastrointestinal: Denies: abdominal pain Musculoskeletal: Denies: back pain Past Medical History Past Medical History: Asthma, COPD, CVA/TIA, Diabetes Mellitus, Hearing Disorder / Deafness, Hyperlipidemia, Hypertension, Osteoarthritis (OA), Skin Disorder Additional Past Medical History / Comment(s): IDDM type II, arthritis in mul tiple joints, psoriasis, vitiligo, [place], hx of feeling lightheaded and falls., ? Hx of CVA- states left arm weak-unable to lift or reach far-unable to grasp with left hand , weakness left leg and states left foot drops down and catches on everything., states fall after Left Hip surgery with fx., uses wheelchair and cane., lower back and left hip pain, left arm fracture. History of Any Multi-Drug Resistant Organisms: None Reported Past Surgical History: Joint Replacement Additional Past Surgical History / Comment(s): Bilateral hip replacements Past Anesthesia/Blood Transfusion Reactions: No Reported Reaction Additional Past Anesthesia/Blood Transfusion Reaction / Comment(s): pt states was unable to receive spinal tap with last surgery d/t arthritis in back, received general anesthetic" Past Psychological History: Depression Smoking Status: Former smoker Past Alcohol Use History: None Reported Past Drug Use History: Marijuana - Past Family History Mother Family Medical History: Eye Disorder, Hearing Disorder / Deafness Additional Family Medical History / Comment(s): Father is 90yrs old. He has glaucoma and is [place]. General Exam Limitations: no limitations General appearance: alert, in no apparent distress Head exam: Present: normocephalic Eye exam: Present: normal appearance Neck exam: Present: normal inspection Respiratory exam: Present: normal lung sounds bilaterally. Absent: chest wall tenderness Cardiovascular Exam: Present: regular rate, normal rhythm Expanded Peripheral pulses: 2+: Radial (R), Radial (L), Posterior Tibialis (R), Posterior Tibialis (L) GI/Abdominal exam: Present: soft. Absent: tenderness Extremities exam: Present: normal inspection. Absent: pedal edema, calf tenderness Neurological exam: Present: alert Psychiatric exam: Present: normal affect, normal mood Skin exam: Present: normal color Course Vital Signs 02/05/23 19:21 Temperature 98.1 F Pulse Rate 86 Respiratory 16 Rate Blood Pressure 145/94 O2 Sat by Pulse 98 Oximetry EKG Findings - EKG Results: EKG: interpreted by ERMD (Left axis. Inferior Q waves.), sinus rhythm, normal ST/T Medical Decision Making - Medical Decision Making Was pt. sent in by a medical professional or institution (, PA, ASSISTANT PROFESSOR SURGICAL TECHNOLOGY, urgent care, hospital, or fdc...) When possible be specific @ -No Did you speak to anyone other than the patient for history (EMS, parent, family, police, friend...)? What history was obtained from this source @ -No Did you review nursing and triage notes (agree or disagree)? Why? @ -I reviewed and agree with nursing and triage notes Were old charts reviewed (outside hosp., previous admission, EMS record, old EKG, old radiological studies, urgent care reports/EKG's, fdc records)? Report findings @ -No old charts were reviewed Differential Diagnosis (chest pain, altered mental status, abdominal pain women, abdominal pain men, vaginal bleeding, weakness, fever, dyspnea, syncope, headache, dizziness, GI bleed, back pain, seizure, CVA, palpatations, mental health)? @ -ifferential Chst Pain: Stable Angina, Unstable Angina,STEMI, NTEMI Aortic Dissection, Pneumothorax, [place], Esophageal Spasm GERD, Cholecystitis Pancreattis, Zoster, this is not meant to be an ll-inclusve list. EKG interpreted by me (3pts min.). @ -[As above] X-rays interpreted by me (1pt min). @ Chest x-ray shows no acute process T interpreted by me (1pt min.). @ -[None done]U/S nterpreted by me (1pt. min.). @ -[None done] What testing was considered but not performed or refused? (CT, X-rays, U/S, labs)? Why? @ -[None] What meds were considered but not given or refused? Why? @ -[on] Did you discuss the management of the patient wih ther professionals (professionals i.e. , PA, ASSISTANT PROFESSOR SURGICAL TECHNOLOGY, ab RT, psych nurse, healthcare social worker, cafeteria manager, teacher, hearing officer, welfare case worker)? Give summary @ -[ case was discussed in detail with Dr. Barry who will admit his patient lindsey cessation discussed for >3mins.? @ -[No] Was critical care preformed (if so, how long)? @ 31 minutes critical care time Were there socialdeerminants of health that impacted care today? How? (Homelessness, low income, unemployed, alcoholism, drug addiction, transporaton, low edu. Level, literacy, decrease access to med. care, care home, rehab)? @ -[No] Was there de-escalation of care discussed even if they declined (Discuss DNR or withdrawa of are, Hospice)? DNR status @ -[No] What co-morbidities impacted this encounter? (DM, HTN, Smoking, COPD, CAD, Cancer, CVA, ARF, Chemo, Hep., AIDS, mental health diagnosis,sleep apnea, mobid obesity)? @ -[None] Was patient admitted / dischargd?Hospital course, mention meds given and route, prescriptions, significant lab abnormalities, going o R and other pertinent info. @ -Patient reevaluated and resting comfortably in bed. Mild improvement only with nitro. Patient will be provided morphine and heparinization. Patient will be admitted with cardiac consult. e Undiagnoed new roblem with uncertain prognosis? @ -[No] Azam Therap requiring intensive monitoring for toxicity (Heparin, Nitro, Insulin, Cardizem)? @ -[No] ere any procedures done? @ -[No Dagnosis/symptom? @ -nstemi Acute, or Chronic, or Acute on Chronic? @ -acute Uncomplicated (without systemic symptoms) or Complicated (systemic symptoms)? @ -[default] Side effects of treatment? @ -[No] Exacerbation, Progression, or Severe Exacerbation? @ -[No] [place] threat to life or bodily function? How? (Chest pain, [place], AR, pneumonia, PE, COPD, DKA, ARF, appy, cholecystitis, CVA, Diverticulitis, Homicidal, Suicidal, threat to staff... and all critical care pts) @ -[No] - Lab Data Result diagrams: 02/05/23 19:26 02/05/23 19:26 Lab Results 0602/05/23 02/05/23 Range/Units 19:26 19:26 19:26 WBC 7.4 (3.8-10.6) k/uL RBC 3.65 L (4.30-5.90) m/uL Hgb 13.8 (13.0-17.5) gm/dL Hct 40.6 (39.0-53.0) % MCV 111.0 H (80.0-100.0) fL MCH 37.9 H (25.0-35.0) pg MCHC 34.1 (31.0-37.0) g/dL RDW 13.0 (11.5-15.5) % Plt Count 234 (150-450) k/uL MPV 8.9 Macrocytosis Marked A Sodium 136 L (137-145) mmol/L Potassium 4.2 (3.5-5.1) mmol/L Chloride 106 (98-107) mmol/L Carbon Dioxide 20 L (22-30) mmol/L Anion Gap 10 mmol/L BUN 13 (9-20) mg/dL Creatinine 0.51 L (0.66-1.25) mg/dL Est GFR (CKD-EPI)AfAm >90 (>60 ml/min/1.73 sqM) Est GFR (CKD-EPI)NonAf >90 (>60 ml/min/1.73 sqM) Glucose 260 H (74-99) mg/dL Calcium 9.0 (8.4-10.2) mg/dL Magnesium 2.1 (1.6-2.3) mg/dL Total Bilirubin 0.5 (0.2-1.3) mg/dL AST 23 (17-59) U/L ALT 16 (4-49) U/L Alkaline Phosphatase 44 (38-126) U/L Troponin I 0.150 H* (0.000-0.034) ng/mL Total Protein 7.0 (6.3-8.2) g/dL Albumin 4.3 (3.5-5.0) g/dL Critical Care Time Critical Care Time: Yes Total Critical Care Time: 31 Disposition Clinical Impression: Acute non-ST elevation myocardial infarction (NSTEMI) Disposition: ADMITTED IP TO THIS HOSP Condition: Serious Is patient prescribed a controlled substance at d/c from ED?: No Referrals: Catherine Barry MD [Primary Care Provider] - 1-2 days Time of Disposition: 20:18
[2023-02-05 19:52] LABS: ALT 16 U/L (4-49); AST 23 U/L (17-59); African American GFR (CKD) >90 (>60 ml/min/1.73 sqM); Albumin 4.3 g/dL (3.5-5.0); Alkaline Phosphatase 44 U/L (38-126); Anion Gap 10 mmol/L; Blood Urea Nitrogen 13 mg/dL (9-20); Carbon Dioxide 20 mmol/L (22-30); Chloride 106 mmol/L (98-107); Glucose 260 mg/dL (74-99); Magnesium 2.1 mg/dL (1.6-2.3); Non-African American GFR(CKD) >90 (>60 ml/min/1.73 sqM); Potassium 4.2 mmol/L (3.5-5.1); Sodium 136 mmol/L (137-145); Total Bilirubin 0.5 mg/dL (0.2-1.3)
[2023-02-05 19:58] LABS: Basophils % (A) 0 %; Eosinophils # (A) 0.1 k/uL (0-0.7); Eosinophils % (A) 2 %; HCT 40.6 % (39.0-53.0); HGB 13.8 gm/dL (13.0-17.5); Lymphocytes # (A) 1.5 k/uL (1.0-4.8); Lymphocytes % (A) 21 %; MCH 37.9 pg (25.0-35.0); MCHC 34.1 g/dL (31.0-37.0); Macrocytosis Marked; Mean Platelet Volume 8.9; Monocytes # (A) 0.4 k/uL (0-1.0); Monocytes % (A) 5 %; Neutrophils # (A) 5.3 k/uL (1.3-7.7); Neutrophils % (A) 71 %; Platelet Count 234 k/uL (150-450); RBC 3.65 m/uL (4.30-5.90); WBC 7.4 k/uL (3.8-10.6)
--- NOTE | 2023-02-05 20:01 | XR ---
EXAMINATION TYPE: XR chest 2V DATE OF EXAM: 02/05/2023 7:49 PM COMPARISON: Chest radiographs from 03/17/2021 TECHNIQUE: XR chest 2V Frontal and lateral views of the chest. CLINICAL INDICATION:Male, 67 years old with history of Chest Pain; FINDINGS: Lungs/Pleura: There is no evidence of pleural effusion, focal consolidation, or pneumothorax. Pulmonary vascularity: Unremarkable. Heart/mediastinum: Cardiomediastinal silhouette is unremarkable. Musculoskeletal: Degenerative changes of the shoulder joints. IMPRESSION: No acute cardiopulmonary disease/process.
[2023-02-05 20:06] LABS: INR 0.9 (<1.2)
[2023-02-05] MEDS ORDERED: HEPARIN SODIUM 1,000 UN/ML (10ML VL) IV ONE (20:09)
[2023-02-05] MEDS ORDERED: NITROGLYCERIN SL TABS 0.4 MG TAB SUBLINGUAL PRN (20:13)
[2023-02-05 20:15] LABS: Partial Thromboplastin Time 20.7 sec (22.0-30.0)
[2023-02-05] MEDS ORDERED: MORPHINE SULFATE 4 MG/ML SYRINGE IVP STA (20:15)
[2023-02-05] MEDS: HEPARIN SOD,PORK IN 0.45% NACL 25,000 UNIT in 0.45% NACL 1 250ML.BAG IV SCH (20:38)
[2023-02-05] MEDS: NITROGLYCERIN OINT 1 INCH/GM PACKET TOPICAL SCH ×2 (20:49→23:12)
[2023-02-05] MEDS: HYDROcodone/APAP 10-325MG 1 EACH TAB PO SCH (23:11)
[2023-02-06 02:32] LABS: Partial Thromboplastin Time 36.8 sec (22.0-30.0); Prothrombin Time 10.4 sec (9.0-12.0)
[2023-02-06] MEDS: HEPARIN SODIUM 1,000 UN/ML (10ML VL) IV PRN ×2 (02:58→11:23)
[2023-02-06] MEDS: HYDROcodone/APAP 10-325MG 1 EACH TAB PO SCH ×5 (03:53→19:55)
[2023-02-06] MEDS: NITROGLYCERIN OINT 1 INCH/GM PACKET TOPICAL SCH ×4 (06:10→23:46)
--- NOTE | 2023-02-06 07:15 | CT ---
EXAMINATION TYPE: CT brain wo con DATE OF EXAM: 02/06/2023 COMPARISON: 07/07/2022 HISTORY: Headache on heparin CT DLP: 1188.[address] of the brain was performed. The ventricles, basal cisterns and sulci overlying the cerebral convexities demonstrate mild enlargem ent. There is no evidence for intracranial hemorrhage or sulcal effacement. There is decreased attenuation about the periventricular white matter and deep white matter of both c erebral hemispheres, compatible with chronic small vessel ischemia. Differential diagnosis does inclu de demyelination. No mass effects are seen.No midline shift. Osseous calvarium is intact. If symptoms persist consider MRI. IMPRESSION: 1. Age related atrophic and chronic small vessel ischemic change without acute intracranial process s een at this time.
[2023-02-06] MEDS ORDERED: ALPRAZolam 0.5 MG TAB PO PRN (08:09)
[2023-02-06] MEDS ORDERED: NITROGLYCERIN SL TABS 0.4 MG TAB SUBLINGUAL PRN ×2 (08:09→14:55)
[2023-02-06] MEDS ORDERED: ATORVASTATIN 80 MG TAB PO STA (08:09)
[2023-02-06] MEDS ORDERED: ALPRAZolam 0.25 MG TAB PO PRN (08:09)
[2023-02-06] MEDS ORDERED: ASPIRIN 325 MG TAB PO STA (08:13)
[2023-02-06 08:21] LABS: Glucose,Whole Blood 214 mg/dL (70-110)
[2023-02-06] MEDS: metFORMIN 500 MG TAB PO SCH ×2 (08:25→19:57)
[2023-02-06] MEDS: METOPROLOL TARTRATE 25 MG TAB PO SCH ×2 (08:25→19:55)
[2023-02-06] MEDS: ASPIRIN 325 MG TAB PO SCH (08:25)
[2023-02-06] MEDS: lisinopriL 20 MG TAB PO SCH (08:26)
[2023-02-06] MEDS: ATORVASTATIN 80 MG TAB PO SCH (08:26)
[2023-02-06 10:08] LABS: Partial Thromboplastin Time 26.1 sec (22.0-30.0); Prothrombin Time 10.3 sec (9.0-12.0)
[2023-02-06 10:25] LABS: HCT 38.7 % (39.0-53.0); HGB 13.3 gm/dL (13.0-17.5); MCH 39.5 pg (25.0-35.0); MCHC 34.3 g/dL (31.0-37.0); MCV 114.9 fL (80.0-100.0); Macrocytosis Marked; Mean Platelet Volume 8.6; Platelet Count 232 k/uL (150-450); RBC 3.37 m/uL (4.30-5.90); RDW 12.9 % (11.5-15.5); WBC 8.6 k/uL (3.8-10.6)
[2023-02-06 11:02] LABS: Eosinophils # (M) 0.09 k/uL (0-0.7); Lymphocytes # (M) 2.24 k/uL (1.0-4.8); Monocytes # (M) 0.26 k/uL (0-1.0); Neutrophils # (M) 6.02 k/uL (1.3-7.7); Neutrophils % (M) 70 %; Nucleated Red Blood Cells 0 /100 WBC (0-0); Total Cells Counted 100
--- NOTE | 2023-02-06 11:22 | P.CRDCN ---
History of Present Illness Consult date: 02/06/23 Consult reason: chest pain History of present illness: This is [facility], BACK END ARCHITECT, I'm dictating on behalf of Dr. Ochoa's H&P and A&P The patient was interviewed and examined. HPI: Patient is a pleasant 67-year-old male who presented to the hosptial with complaints of chest pain. Reports onset yesterday in the am which subsided, then yesterday afternoon it returned after showing his house. Reports stressful last few days, as he is in the process of showing his house and has had multiple numbers of people coming through. Pain started in the left chest, and radiated into his left arm. Reports diaphoresis with the pain. Has history of HTN, diabetes not well controlled, also 2 aneuryms in the brain. Due to this, the patient presented to the emergency department for evaluation. In the emergency department the patient's EKG did not demonstrate any concerning findings. Patient did have elevated troponins upon presentation. This morning the patient reports that he is feeling slightly better. He remains normal sinus rhythm on telemetry. Troponins have begun to trend back down. ROS: [No fever, chills, or rigors] [no cough, phlegm, or expectoration] [no nausea, vomiting, or diarrhea] [no hematuria, dysuria] [no musculoskelatal complaints] [no strokes or seizures] [no skin lesions] EXAMINATION: GENERAL: Well-appearing, well-nourished and in no acute distress. NECK: Supple without JVD or thyromegaly. LUNGS: Breath sounds clear to auscultation bilaterally. Respiration equal and unlabored. No wheezes, rales or rhonchi. HEART: Regular rate and rhythm without murmurs, rubs or gallops. S1 and S2 heard. EXTREMITIES: Normal range of motion, no edema. No clubbing or cyanosis. Peripheral pulses intact and strong. REVIEW OF LABS, ECG & MEDICAL DATA: LABS: White count 8.6, hemoglobin 13.3, platelets 232, sodium 136, potassium 4.2, B1 13, creatinine 0.51, calcium 9.0, magnesium 2.1, troponin-0.150, 0.188, 0.151, BNP 29 EKG: Normal sinus rhythm IMAGING: X-ray of chest dated 02/05/2023 demonstrates no acute cardiopulmonary disease/process. CT of the brain without contrast dated 02/06/2023 demonstrates age-related atrophy and chronic small vessel ischemic change without acute intracranial process seen at this time. VITALS: Temp 97.0, pulse 66, respirations 18, blood pressure 116/70, O2 saturation 98% on room air IMPRESSION: 1. Non-ST elevated CO 2. Uncontrolled diabetes 3. Hypertension 4. Hyperlipidemia PLAN: Start atorvastatin 80 mg daily Start metoprolol 25 mg twice a day Patient will be scheduled for a cardiac catheterization Keep nothing by mouth Further recommendations based on patient's clinical course Thank you for the consult and allowing us to participate in the care of this patient. Past Medical History Past Medical History: Asthma, COPD, CVA/TIA, Diabetes Mellitus, Hearing Disorder / Deafness, Hyperlipidemia, Hypertension, Osteoarthritis (OA), Skin Disorder Additional Past Medical History / Comment(s): IDDM type II, arthritis in multiple joints, psoriasis, vitiligo, [place], hx of feeling lightheaded and falls., ? Hx of CVA- states left arm weak-unable to lift or reach far-unable to grasp with left hand , weakness left leg and states left foot drops down and catches on everything., states fall after Left Hip surgery with fx., uses wheelchair and cane., lower back and left hip pain, left arm fracture. History of Any Multi-Drug Resistant Organisms: None Reported Past Surgical History: Joint Replacement Additional Past Surgical History / Comment(s): Bilateral hip replacements Past Anesthesia/Blood Transfusion Reactions: No Reported Reaction Additional Past Anesthesia/Blood Transfusion Reaction / Comment(s): pt states was unable to receive spinal tap with last surgery d/t arthritis in back, received general anesthetic" Past Psychological History: Depression Smoking Status: Former smoker Past Alcohol Use History: None Reported Past Drug Use History: Marijuana - Past Family History Mother Family Medical History: Eye Disorder, Hearing Disorder / Deafness Additional Family Medical History / Comment(s): Father is 90yrs old. He has glaucoma and is [place]. Medications and Allergies Home Medications Medication Instructions Recorded Confirmed Type Insulin Detemir (Levemir) [Levemir] 40 unit SQ HS 02/03/14 02/05/23 History metFORMIN HCL [Glucophage] 500 mg PO BID 02/03/14 02/05/23 History lisinopriL [Prinivil] 20 mg PO DAILY 08/05/14 02/05/23 History INSULIN ASPART (NovoLOG) [[place] 30 unit SQ AC-TID 04/15/20 02/05/23 History (formulary)] Ergocalciferol (Vitamin D2) 1,250 mcg PO WE 02/05/23 02/05/23 History [Drisdol (50,000 Iu)] HYDROcodone/APAP 10-325MG [[place] 0.5 tab PO Q4HR 02/05/23 02/05/23 History 10-325] Allergies Allergy/AdvReac Type Severity Reaction Status Date / Time No Known Allergies Allergy Verified 02/05/23 20:32 Physical Exam Vitals: Vital Signs Temp Pulse Resp BP Pulse Ox 02/06/23 07:30 97.0 F L 66 18 116/70 98 02/06/23 00:00 75 17 96 02/05/23 22:00 79 18 109/71 96 02/05/23 20:53 92 16 121/81 98 02/05/23 19:21 98.1 F 86 16 145/94 98 Intake and Output 02/05/23 02/06/23 02/06/23 22:59 06:59 14:59 Intake Total 97.316 Balance 97.316 Intake: Intake, IV Titration 97.316 Amount Heparin Sod,Pork in 0.45% 97.316 NaCl 25,000 unit In 0.45 % NaCl 1 250ml.bag @ 12 UNITS/KG/HR 9.525 mls/hr IV .Q24H [facility] Rx#: [id number] Other: Weight 79.379 kg Results 02/06/23 09:45 02/05/23 19:26 Cardiac Enzymes 02/05/23 02/05/23 02/05/23 Range/Units 19:26 19:26 22:17 AST 23 (17-59) U/L Troponin I 0.150 H* 0.188 H* (0.000-0.034) ng/mL 02/06/23 Range/Units 01:56 AST (17-59) U/L Troponin I 0.151 H* (0.000-0.034) ng/mL Coagulation 02/05/23 02/06/23 Range/Units 19:26 01:56 PT 10.0 10.4 (9.0-12.0) sec APTT 20.7 L 36.8 H (22.0-30.0) sec CBC 02/05/23 Range/Units 19:26 WBC 7.4 (3.8-10.6) k/uL RBC 3.65 L (4.30-5.90) m/uL Hgb 13.8 (13.0-17.5) gm/dL Hct 40.6 (39.0-53.0) % Plt Count 234 (150-450) k/uL Comprehensive Metabolic Panel 02/05/23 Range/Units 19:26 Sodium 136 L (137-145) mmol/L Potassium 4.2 (3.5-5.1) mmol/L Chloride 106 (98-107) mmol/L Carbon Dioxide 20 L (22-30) mmol/L BUN 13 (9-20) mg/dL Creatinine 0.51 L (0.66-1.25) mg/dL Glucose 260 H (74-99) mg/dL Calcium 9.0 (8.4-10.2) mg/dL AST 23 (17-59) U/L ALT 16 (4-49) U/L Alkaline Phosphatase 44 (38-126) U/L Total Protein 7.0 (6.3-8.2) g/dL Albumin 4.3 (3.5-5.0) g/dL Current Medications Generic Name Dose Route Start Last Admin Trade Name Freq PRN Reason Stop Dose Admin Hydrocodone Bitart/Acetaminophen 0.5 each 02/06/23 00:00 02/06/23 03:53 Hydrocodone/Apap 10-325mg 1 Each Tab PO 0.5 each Q4HR DEIRDRE Administration Aspirin 325 mg 02/06/23 09:00 Aspirin 325 Mg Tab PO DAILY [facility] Heparin Sodium (Porcine) 0 unit 02/05/23 20:09 02/06/23 02:58 Heparin Sodium 1,000 Un/Ml (10ml Vl) IV 1,984 unit PER PROTOCOL PRN Administration Low PTT Protocol Heparin Sodium/Sodium Chloride 250 mls @ 9.525 mls/hr 02/05/23 20:15 02/06/23 06:18 25,000 unit/ Sodium Chloride IV 0 units/kg/hr .Q24H DEIRDRE 0 mls/hr Titration Protocol 12 UNITS/KG/HR Lisinopril 20 mg 02/06/23 09:00 Lisinopril 20 Mg Tab PO DAILY [facility] Metformin HCl 500 mg 02/06/23 09:00 Metformin 500 Mg Tab PO BID [facility] Nitroglycerin 0.4 mg 02/05/23 20:13 Nitroglycerin Sl Tabs 0.4 Mg Tab SUBLINGUAL Q5M PRN Chest Pain Nitroglycerin 1 inch 02/05/23 20:15 02/06/23 06:10 Nitroglycerin Oint 1 Inch/Gm Packet TOPICAL 1 inch Q6HR DEIRDRE Administration Sodium Chloride 10 ml 02/05/23 21:00 02/05/23 21:00 Sodium Chloride 0.9% Flush 10 Ml Syringe IV 10 ml BID DEIRDRE Administration Intake and Output 02/05/23 02/06/23 02/06/23 22:59 06:59 14:59 Intake Total 97.316 Balance 97.316 Intake: Intake, IV Titration 97.316 Amount Heparin Sod,Pork in 0.45% 97.316 NaCl 25,000 unit In 0.45 % NaCl 1 250ml.bag @ 12 UNITS/KG/HR 9.525 mls/hr IV .Q24H [facility] Rx#: [id number] Other: Weight 79.379 kg 02/05/23 19:26 02/05/23 19:26
--- NOTE | 2023-02-06 12:05 | P.HPIM ---
History of Present Illness H&P Date: 02/06/23 Boaz Reed, is a 67-year-old male who presented to [facility] emergency room with a chief complaint of chest pain patient describes a pressure sensation in the middle of the chest radiating towards the left arm with episodes of sweating no nausea or vomiting no shortness of breath. He was evaluated in the emergency room vital examination on presentation revealed a temperature of 98.1 pulse 86 respiration 16 blood pressure 145/94 pulse ox 98% on room air Laboratory data revealed a white blood count of 7.4 hemoglobin 13.8 platelet count 234 d-dimer 0.19 troponin level 0.15 Testing in the emergency room revealed EKG done in the emergency room revealed sinus rhythm with evidence of inferior myocardial infarction with T-wave inversion in lead [address] segment abnormalities, chest x-ray done in the emergency room revealed no acute cardiopulmonary disease. Patient was admitted to medical floor for further evaluation and treatment, he was started on IV heparin, Nitropaste, cardiology consultation was requested. Shortly after presentation patient developed severe headache, at that point Nitropaste was held, IV heparin was held, computed tomography scan of the brain without contrast was done and there was no evidence of intracranial bleeding. Past Medical History Past Medical History: Asthma, COPD, CVA/TIA, Diabetes Mellitus, Hearing Disorder / Deafness, Hyperlipidemia, Hypertension, Osteoarthritis (OA), Skin Disorder Additional Past Medical History / Comment(s): IDDM type II, arthritis in multiple joints, psoriasis, vitiligo, [place], hx of feeling lightheaded and falls., ? Hx of CVA- states left arm weak-unable to lift or reach far-unable to grasp with left hand , weakness left leg and states left foot drops down and catches on everything., states fall after Left Hip surgery with fx., uses wheelchair and cane., lower back and left hip pain, left arm fracture. History of Any Multi-Drug Resistant Organisms: None Reported Past Surgical History: Joint Replacement Additional Past Surgical History / Comment(s): Bilateral hip replacements Past Anesthesia/Blood Transfusion Reactions: No Reported Reaction Additional Past Anesthesia/Blood Transfusion Reaction / Comment(s): pt states was unable to receive spinal tap with last surgery d/t arthritis in back, rece ived general anesthetic" Past Psychological History: Depression Smoking Status: Former smoker Past Alcohol Use History: None Reported Past Drug Use History: Marijuana - Past Family History Mother Family Medical History: Eye Disorder, Hearing Disorder / Deafness Additional Family Medical History / Comment(s): Father is 90yrs old. He has glaucoma and is [place]. Medications and Allergies Home Medications Medication Instructions Recorded Confirmed Type Insulin Detemir (Levemir) [Levemir] 40 unit SQ HS 02/03/14 02/05/23 History metFORMIN HCL [Glucophage] 500 mg PO BID 02/03/14 02/05/23 History lisinopriL [Prinivil] 20 mg PO DAILY 08/05/14 02/05/23 History INSULIN ASPART (NovoLOG) [NovoLOG 30 unit SQ AC-TID 04/15/20 02/05/23 History (formulary)] Ergocalciferol (Vitamin D2) 1,250 mcg PO WE 02/05/23 02/05/23 History [Drisdol (50,000 Iu)] HYDROcodone/APAP 10-325MG [Linneus 0.5 tab PO Q4HR 02/05/23 02/05/23 History 10-325] Allergies Allergy/AdvReac Type Severity Reaction Status Date / Time No Known Allergies Allergy Verified 02/05/23 20:32 Physical Exam Vitals: Vital Signs Temp Pulse Resp BP Pulse Ox 02/06/23 07:30 97.0 F L 66 18 116/70 98 02/06/23 00:00 75 17 96 02/05/23 22:00 79 18 109/71 96 02/05/23 20:53 92 16 121/81 98 02/05/23 19:21 98.1 F 86 16 145/94 98 Intake and Output 02/05/23 02/06/23 02/06/23 22:59 06:59 14:59 Intake Total 97.316 Balance 97.316 Intake: Intake, IV Titration 97.316 Amount Heparin Sod,Pork in 0.45% 97.316 NaCl 25,000 unit In 0.45 % NaCl 1 250ml.bag @ 12 UNITS/KG/HR 9.525 mls/hr IV .Q24H [facility] Rx#: [id number] Other: Weight 79.379 kg In general patient is alert and oriented x 3 in no distress HEENT head normocephalic and atraumatic Neck is supple no JVD no goiter no lymphadenopathy no carotid bruit Chest examination is clear to auscultation no crackles no wheezing Cardiac exam reveals regular heart sounds S1 and S2 no gallops no murmurs Abdomen is soft nontender no organomegaly with normal bowel sounds Extremity exam reveals no edema no cyanosis or clubbing Neurological examination reveals no gross focal deficits Results CBC & Chem 7: 02/06/23 09:45 02/05/23 19:26 Labs: Abnormal Lab Results - Last 24 Hours (Table) 02/05/23 02/05/23 02/05/23 Range/Units 19:26 19:26 19:26 RBC 3.65 L (4.30-5.90) m/uL MCV 111.0 H (80.0-100.0) fL MCH 37.9 H (25.0-35.0) pg Macrocytosis Marked A APTT 20.7 L (22.0-30.0) sec Sodium 136 L (137-145) mmol/L Carbon Dioxide 20 L (22-30) mmol/L Creatinine 0.51 L (0.66-1.25) mg/dL Glucose 260 H (74-99) mg/dL Troponin I (0.000-0.034) ng/mL 02/05/23 02/05/23 02/06/23 Range/Units 19:26 22:17 01:56 RBC (4.30-5.90) m/uL MCV (80.0-100.0) fL MCH (25.0-35.0) pg Macrocytosis APTT (22.0-30.0) sec Sodium (137-145) mmol/L Carbon Dioxide (22-30) mmol/L Creatinine (0.66-1.25) mg/dL Glucose (74-99) mg/dL Troponin I 0.150 H* 0.188 H* 0.151 H* (0.000-0.034) ng/mL 02/06/23 Range/Units 01:56 RBC (4.30-5.90) m/uL MCV (80.0-100.0) fL MCH (25.0-35.0) pg Macrocytosis APTT 36.8 H (22.0-30.0) sec Sodium (137-145) mmol/L Carbon Dioxide (22-30) mmol/L Creatinine (0.66-1.25) mg/dL Glucose (74-99) mg/dL Troponin I (0.000-0.034) ng/mL Assessment and Plan Plan: Acute non-ST elevated myocardial infarction Underlying history of hypertension Underlying history of hyperlipidemia Underlying history of diabetes mellitus Underlying history of COPD Underlying history of osteoarthritis Underlying history of psoriasis Episode of severe headache likely related to Nitropaste, no evidence of intracranial bleeding on computed tomography scan At this time patient was seen and examined Home medications reviewed and reordered Patient was started on IV heparin Cardiology consultation requested Plan for cardiac catheterization Will follow closely
[2023-02-06] MEDS: INSULIN ASPART (NovoLOG) 100 UNIT/ML VIAL SQ SCH ×2 (12:21→17:52)
[2023-02-06 12:29] LABS: Glucose,Whole Blood 201 mg/dL (70-110)
[2023-02-06 13:32] LABS: Chol/HDL Ratio 3.85 Ratio; LDL Cholesterol,Calculated 83.3 mg/dL (0.0-131.0)
[2023-02-06] MEDS ORDERED: IV FLUID CONTINUATION 1,000 ML IV ONE (13:45)
[2023-02-06] MEDS ORDERED: VERAPAMIL 2.5 MG/ML 2 ML AMP ONE (13:57)
[2023-02-06] MEDS ORDERED: LIDOCAINE 1% INJ 10MG/ML (5 ML VIAL-PF) SQ ONE (14:06)
[2023-02-06] MEDS ORDERED: MIDAZOLAM 2 MG/2 ML VIAL IV ONE ×2 (14:06→14:34)
[2023-02-06] MEDS ORDERED: VERAPAMIL SYRINGE (5 MG/10 ML) INTRAARTER ONE (14:07)
[2023-02-06] MEDS ORDERED: HEPARIN SODIUM 1,000 UN/ML (10ML VL) ONE (14:09)
[2023-02-06] MEDS ORDERED: fentaNYL (PF) 50 MCG/ML 2 ML AMP ONE (14:21)
[2023-02-06] MEDS ORDERED: fentaNYL (PF) 50 MCG/1 ML VIAL IV ONE ×2 (14:22)
[2023-02-06] MEDS ORDERED: HEPARIN SODIUM 1,000 UN/ML (10ML VL) IV ONE (14:24)
[2023-02-06] MEDS: NITROGLYCERIN 1000MCG/10ML SYRINGE INTRACORON ONE ×2 (14:35→14:49)
[2023-02-06] MEDS ORDERED: PRASUGREL 10 MG TAB PO ONE (14:36)
[2023-02-06] MEDS ORDERED: PRASUGREL 10 MG TAB ONE ×2 (14:37→14:38)
[2023-02-06] MEDS ORDERED: IOPAMIDOL-370 100ML BTL INJ ONE ×2 (14:38→14:52)
[2023-02-06] MEDS ORDERED: niCARdipine Syringe (1,000 mcg/10 mL) INTRACORON ONE (14:49)
[2023-02-06] MEDS ORDERED: niCARdipine 25 MG/10 ML VIAL ONE (14:49)
[2023-02-06] MEDS ORDERED: RX INFO: IV CONTRAST WAS GIVEN 1 EACH MISC MISCELLANE PRN (14:55)
[2023-02-06] MEDS ORDERED: ATROPINE SULFATE 0.1 MG/ML 10ML SYRINGE IV PRN (14:55)
[2023-02-06] MEDS ORDERED: ZOLPIDEM 5 MG TAB PO PRN (14:55)
[2023-02-06] MEDS ORDERED: MAG HYDROX/AL HYDROX/SIMETH 30 ML CUP PO PRN (14:55)
[2023-02-06] MEDS ORDERED: SODIUM CHLORIDE 0.9% 1,000 ML in EMPTY BAG 1 BAG IV SCH (15:00)
--- NOTE | 2023-02-06 15:04 | P.PCN ---
Date of Procedure: 02/06/23 Operative Findings: CARDIAC CATHETERIZATION AND PERCUTANEOUS CORONARY INTERVENTION PERFORMING PHYSICIAN: César Ibarra MD, [facility] PROCEDURE PERFORMED: 1. Selective right and left coronary angiogram 2. Left heart catheterization 3. Successful stenting of mid LAD using 2.25 x 15 mm Xience PATIENCE with an excellent angiographic results 4. Successful stenting of the proximal LAD using 3.25 x 15 mm Xience PATIENCE with an excellent angiographic results 5. FFR of the left anterior descending artery INDICATION: Acute non-ST elevation myocardial infarction in this 67-year-old gentleman with diabetes and hypertension and dyslipidemia presented as chest discomfort COMPLICATION: None APPROACH: Right radial artery LEVEL OF SEDATION: Moderate with the sedation time off 47 minutes PROCEDURE DESCRIPTION: After obtaining an informed consent the patient was brought to the cardiac catheter builder. The right radial artery was cannulated using micropuncture technique the micro-rupture wire passed easily then I placed a 6-[place] sheath. I gave the patient 2 mg of verapamil intra-arterial and 4000 use of heparin and intravenous with continuous ACT mattering. Selective right and left coronary angiogram performed using JR4 and JL 3.5 catheters. Left heart catheterization was performed using the JL 3.5 which cross the aortic valve then I did pulled back across the valve. After that we did an FFR and then intervention on the left anterior descending artery. The procedure was completed was no complication SELECTIVE CORONARY ANGIOGRAM: The right coronary artery: Large-caliber vessel and a dominant vessel. The mid RCA has mild to moderate disease was identified on the COLEY view. Distally appeared to be angiographically normal. Left main: Is angiographically normal. Bifurcates into an LCx and LAD The left circumflex: Large-caliber vessel and nondominant vessel. The LCx appears to have mild disease only. It gives rises into an OM1 which appeared to have mild disease only and I'm 2 which appeared to have also mild disease only. The left anterior descending artery: The left anterior descending artery proximally has intermediate lesion. In the midportion has intermediate to severe lesion as well. HEMODYNAMICS: The LVEDP was 2 mmHg was no significant gradient across aortic valve PCI OF THE LAD: Anticoagulation was initiated using heparin with continuous ACT monitoring. After zeroing the Doppler wire and equalizing between the Doppler wire and guiding catheter with did wire the LAD. That was performed after the left main was engaged. Subsequently the wire was advanced to the distal LAD. We did perform iFR of the 2 consecutive lesions and that came in to be an 0.87 and after pulling back from the distal lesion in the number came back to 0.84. Both lesions are hemodynamically significant. Subsequently I did balloon angioplasty of both lesions using 2 mm balloon and distally I deployed 2.25 x 15 mm and in the proximal portion I deployed 3.25 x 15 mm and I postdilated using 3.5 mm noncompliant balloon. Final angiogram was performed and showed an excellent angiographic results and the procedure was completed with no complication CONCLUSION: 1. Intermediate lesion involving the proximal LAD and mid LAD. iFR was performed with pullback and both lesions came in to be hemodynamically significance. I did perform successful stenting of both lesions as described above 2. Low left-sided filling pressure POSTPROCEDURE MANAGEMENT: 1. Dual antiplatelet therapy using aspirin and Effient for 12 month 2. Aggressive cholesterol control 3. Follow-up with the patient
[2023-02-06 17:21] LABS: Glucose,Whole Blood 230 mg/dL (70-110)
[2023-02-06] MEDS: HEPARIN SOD,PORK IN 0.45% NACL 25,000 UNIT in 0.45% NACL 1 250ML.BAG IV SCH (19:56)
[2023-02-06 20:45] LABS: Glucose,Whole Blood 119 mg/dL (70-110)
[2023-02-06] MEDS: INSULIN DETEMIR (LEVEMIR) 100 UNIT/ML SYR SQ SCH (21:07)
[2023-02-06 21:43] LABS: Glucose,Whole Blood 54 mg/dL (70-110)
[2023-02-06 22:10] LABS: Glucose,Whole Blood 89 mg/dL (70-110)
[2023-02-06 23:19] LABS: Glucose,Whole Blood 140 mg/dL (70-110)
[2023-02-07] MEDS: HYDROcodone/APAP 10-325MG 1 EACH TAB PO SCH ×7 (00:05→23:55)
[2023-02-07] MEDS: NITROGLYCERIN OINT 1 INCH/GM PACKET TOPICAL SCH ×4 (05:07→23:56)
[2023-02-07] MEDS ORDERED: HEPARIN SODIUM,PORCINE 2,500 UNIT in SODIUM CHLORIDE 0.9% 250 ML IRRIGATION PRN (07:00)
[2023-02-07] MEDS ORDERED: HEPARIN SODIUM,PORCINE 10,000 UNIT in SODIUM CHLORIDE 0.9% 1,000 ML IRRIGATION PRN (07:00)
[2023-02-07 07:44] LABS: Glucose,Whole Blood 247 mg/dL (70-110)
[2023-02-07] MEDS: INSULIN ASPART (NovoLOG) 100 UNIT/ML VIAL SQ SCH ×3 (08:39→17:46)
[2023-02-07] MEDS: ATORVASTATIN 80 MG TAB PO SCH (08:41)
[2023-02-07] MEDS: ASPIRIN 325 MG TAB PO SCH (08:41)
[2023-02-07] MEDS: PRASUGREL 10 MG TAB PO SCH (08:41)
[2023-02-07] MEDS: metFORMIN 500 MG TAB PO SCH ×2 (08:41→19:55)
[2023-02-07] MEDS: lisinopriL 20 MG TAB PO SCH (08:41)
[2023-02-07] MEDS: METOPROLOL TARTRATE 25 MG TAB PO SCH ×2 (08:41→19:55)
[2023-02-07 09:22] LABS: HCT 41.2 % (39.6-50.0); MCH 37.7 pg (27.0-32.0); MCV 111.1 FL (80.0-97.0); Mean Platelet Volume 10.6 FL (9.5-12.2); NRBC Per 100 WBC 0 X 10*3/uL (0.00-0.01); Platelet Count 254 X 10*3/uL (140-440); RBC 3.71 X 10*6/uL (4.40-5.60); RDW 11.7 % (11.5-14.5); WBC 9.77 X 10*3/uL (4.50-10.00)
[2023-02-07 09:30] LABS: ALT 12 U/L (10-49); AST 20 U/L (14-35); Albumin 4.6 d/dL (3.8-4.9); Albumin/Globulin Ratio 1.84 Ratio (1.60-3.17); Alkaline Phosphatase 60 U/L (41-126); BUN/Creat Ratio 10.29 Ratio (12.00-20.00); Blood Urea Nitrogen 7.2 mg/dL (9.0-27.0); Calcium 9.7 mg/dL (8.7-10.3); Carbon Dioxide 26.4 mmol/L (21.6-31.8); Chloride 102 mmol/L (96-109); Globulin 2.5 d/dL (1.6-3.3); Glucose 226 mg/dL (70-110); Potassium 4.6 mmol/L (3.5-5.5); Sodium 141 mmol/L (135-145); Total Bilirubin 0.5 mg/dL (0.3-1.2); Total Protein 7.1 d/dL (6.2-8.2)
[2023-02-07 10:11] LABS: Basophils # (A) 0.02 X 10*3/uL (0.00-0.10); Basophils % (A) 0.2 %; Eosinophils # (A) 0.11 X 10*3/uL (0.04-0.35); Eosinophils % (A) 1.1 %; Lymphocytes # (A) 2.26 X 10*3/uL (0.90-5.00); Lymphocytes % (A) 23.1 %; Macrocytosis (M) 2+; Monocytes % (A) 7.2 %; Neutrophils # (A) 6.65 X 10*3/uL (1.80-7.70); Neutrophils % (A) 68.1 %
--- NOTE | 2023-02-07 10:31 | P.PN ---
Subjective Progress Note Date: 02/07/23 Boaz Reed, is a 67-year-old male who presented to [facility] emergency room with a chief complaint of chest pain patient describes a pressure sensation in the middle of the chest radiating towards the left arm with episodes of sweating no nausea or vomiting no shortness of breath. He was evaluated in the emergency room vital examination on presentation revealed a temperature of 98.1 pulse 86 respiration 16 blood pressure 145/94 pulse ox 98% on room air Laboratory data revealed a white blood count of 7.4 hemoglobin 13.8 platelet count 234 d-dimer 0.19 troponin level 0.15 Testing in the emergency room revealed EKG done in the emergency room revealed sinus rhythm with evidence of inferior myocardial infarction with T-wave inversion in lead [address] segment abnormalities, chest x-ray done in the emergency room revealed no acute cardiopulmonary disease. Patient was admitted to medical floor for further evaluation and treatment, he was started on IV heparin, Nitropaste, cardiology consultation was requested. Shortly after presentation patient developed severe headache, at that point Nitropaste was held, IV heparin was held, computed tomography scan of the brain without contrast was done and there was no evidence of intracranial bleeding. patient is alert and oriented 3. Status post cardiac cath with two- step placement. Patient remains on aspirin and Effient. Per cardiology services would like to monitor patient for an additional 24 hours. Current vital signs temp 98.1, heart rate 72, respiratory rate 15, blood pressure 140/84 pulse ox 97 on room air Objective - Vital Signs Vital signs: Vital Signs Temp 97.4 F L 02/07/23 07:00 Pulse 72 02/07/23 07:00 Resp 16 02/07/23 07:00 BP 158/94 02/07/23 07:00 Pulse Ox 96 02/07/23 07:00 FiO2 Intake & Output 02/06/23 02/07/23 02/07/23 18:59 06:59 18:59 Intake Total 460.984 500 236 Output Total 250 Balance 210.984 500 236 Weight 79.379 kg Intake: IV 100 Intake, IV Titration 64.984 Amount Heparin Sod,Pork in 0.45% 64.984 NaCl 25,000 unit In 0.45 % NaCl 1 250ml.bag @ 12 UNITS/KG/HR 9.525 mls/hr IV .Q24H [facility] Rx#: [id number] Oral 296 500 236 Output: Urine 250 Other: Voiding Method Toilet # Voids 3 - Exam In general patient is alert and oriented x 3 in no distress HEENT head normocephalic and atraumatic Neck is supple no JVD no goiter no lymphadenopathy no carotid bruit Chest examination is clear to auscultation no crackles no wheezing Cardiac exam reveals regular heart sounds S1 and S2 no gallops no murmurs Abdomen is soft nontender no organomegaly with normal bowel sounds Extremity exam reveals no edema no cyanosis or clubbing Neurological examination reveals no gross focal deficits - Labs CBC & Chem 7: 02/07/23 06:19 02/07/23 06:19 Labs: Abnormal Lab Results - Last 24 Hours (Table) 02/06/23 02/06/23 02/06/23 Range/Units 09:45 09:45 12:27 RBC 3.37 L (4.30-5.90) m/uL Hct 38.7 L (39.0-53.0) % MCV 114.9 H (80.0-100.0) fL MCH 39.5 H (25.0-35.0) pg Macrocytosis Marked A Macrocytosis (manual) APTT (22.0-30.0) sec Anion Gap (4.00-12.00) mmol/L BUN (9.0-27.0) mg/dL BUN/Creatinine Ratio (12.00-20.00) Ratio Glucose (70-110) mg/dL POC Glucose (mg/dL) 201 H (70-110) mg/dL HDL Cholesterol 37.70 L (40.00-60.00) mg/dL 02/06/23 02/06/23 02/06/23 Range/Units 17:19 17:42 20:43 RBC (4.30-5.90) m/uL Hct (39.0-53.0) % MCV (80.0-100.0) fL MCH (25.0-35.0) pg Macrocytosis Macrocytosis (manual) APTT 32.2 H (22.0-30.0) sec Anion Gap (4.00-12.00) mmol/L BUN (9.0-27.0) mg/dL BUN/Creatinine Ratio (12.00-20.00) Ratio Glucose (70-110) mg/dL POC Glucose (mg/dL) 230 H 119 H (70-110) mg/dL HDL Cholesterol (40.00-60.00) mg/dL 02/06/23 02/06/23 02/07/23 Range/Units 21:40 23:08 06:19 RBC 3.71 L (4.30-5.90) m/uL Hct (39.0-53.0) % MCV 111.1 H (80.0-100.0) fL MCH 37.7 H (25.0-35.0) pg Macrocytosis Macrocytosis (manual) 2+ A APTT (22.0-30.0) sec Anion Gap (4.00-12.00) mmol/L BUN (9.0-27.0) mg/dL BUN/Creatinine Ratio (12.00-20.00) Ratio Glucose (70-110) mg/dL POC Glucose (mg/dL) 54 L 140 H (70-110) mg/dL HDL Cholesterol (40.00-60.00) mg/dL 02/07/23 02/07/23 Range/Units 06:19 07:43 RBC (4.30-5.90) m/uL Hct (39.0-53.0) % MCV (80.0-100.0) fL MCH (25.0-35.0) pg Macrocytosis Macrocytosis (manual) APTT (22.0-30.0) sec Anion Gap 12.60 H (4.00-12.00) mmol/L BUN 7.2 L (9.0-27.0) mg/dL BUN/Creatinine Ratio 10.29 L (12.00-20.00) Ratio Glucose 226 H (70-110) mg/dL POC Glucose (mg/dL) 247 H (70-110) mg/dL HDL Cholesterol (40.00-60.00) mg/dL Assessment and Plan Plan: Acute non-ST elevated myocardial infarction. Status post cardiac cath with sten t placement Underlying history of hypertension Underlying history of hyperlipidemia Underlying history of diabetes mellitus Underlying history of COPD Underlying history of osteoarthritis Underlying history of psoriasis Episode of severe headache likely related to Nitropaste, no evidence of i ntracranial bleeding on computed tomography scan At this time patient was seen and examined Home medications reviewed and reordered Status post cardiac cath and 02/06/2023 with stent placement Will follow closely
[2023-02-07 12:13] LABS: Glucose,Whole Blood 138 mg/dL (70-110)
--- NOTE | 2023-02-07 12:14 | P.PN ---
Subjective Progress Note Date: 02/07/23 This is Naresh Taveras NP, I'm dictating on behalf of Dr. Ochoa's H&P and A&P. Patient was interviewed and examined. Patient is a pleasant 67-year-old male who presented to the hospital with an NSTEMI. Patient underwent PCI with stenting x2 to the LAD yesterday evening with successful reperfusion of the affected area. Patient this am reports no chest pain. He states that he has more energy today. Cath site on the right wrist is intact, with no hematoma, sensation is intact. GENERAL: Well-appearing, well-nourished and in no acute distress. NECK: Supple without JVD or thyromegaly. LUNGS: Breath sounds clear to auscultation bilaterally. Respiration equal and unlabored. No wheezes, rales or rhonchi. HEART: Regular rate and rhythm without murmurs, rubs or gallops. S1 and S2 heard. EXTREMITIES: Normal range of motion, no edema. No clubbing or cyanosis. Peripheral pulses intact and strong. VITALS: Temp 97.4, pulse 72, respirations 16, blood pressure 150/94, O2 saturation 96% on room air TELEMETRY: Normal sinus rhythm LABS: White count 9.7, hemoglobin 14, platelets 254, sodium 141, potassium 4.6, BUNs 7.2, creatinine 0.7, calcium 9.7 IMPRESSION: 1. Non-ST elevated [place] 2. Uncontrolled diabetes 3. Hypertension 4. Hyperlipidemia PLAN: Encourage patient to walk the hallways. Echo tomorrow. Possible DC tomorrow if echo is ok and vitals remain stable. Continue current cardiac medications. Objective - Vital Signs Vital signs: Vital Signs Temp 97.4 F L 02/07/23 07:00 Pulse 72 02/07/23 07:00 Resp 16 02/07/23 07:00 BP 158/94 02/07/23 07:00 Pulse Ox 96 02/07/23 07:00 FiO2 Intake & Output 02/06/23 02/07/23 02/07/23 18:59 06:59 18:59 Intake Total 460.984 500 236 Output Total 250 Balance 210.984 500 236 Weight 79.379 kg Intake: IV 100 Intake, IV Titration 64.984 Amount Heparin Sod,Pork in 0.45% 64.984 NaCl 25,000 unit In 0.45 % NaCl 1 250ml.bag @ 12 UNITS/KG/HR 9.525 mls/hr IV .Q24H [facility] Rx#: [id number] Oral 296 500 236 Output: Urine 250 Other: Voiding Method Toilet # Voids 3 - Labs CBC & Chem 7: 02/07/23 06:19 02/07/23 06:19 Labs: Abnormal Lab Results - Last 24 Hours (Table) 02/06/23 02/06/23 02/06/23 Range/Units 09:45 09:45 12:27 RBC 3.37 L (4.30-5.90) m/uL Hct 38.7 L (39.0-53.0) % MCV 114.9 H (80.0-100.0) fL MCH 39.5 H (25.0-35.0) pg Macrocytosis Marked A APTT (22.0-30.0) sec POC Glucose (mg/dL) 201 H (70-110) mg/dL HDL Cholesterol 37.70 L (40.00-60.00) mg/dL 02/06/23 02/06/23 02/06/23 Range/Units 17:19 17:42 20:43 RBC (4.30-5.90) m/uL Hct (39.0-53.0) % MCV (80.0-100.0) fL MCH (25.0-35.0) pg Macrocytosis APTT 32.2 H (22.0-30.0) sec POC Glucose (mg/dL) 230 H 119 H (70-110) mg/dL HDL Cholesterol (40.00-60.00) mg/dL 02/06/23 02/06/23 02/07/23 Range/Units 21:40 23:08 07:43 RBC (4.30-5.90) m/uL Hct (39.0-53.0) % MCV (80.0-100.0) fL MCH (25.0-35.0) pg Macrocytosis APTT (22.0-30.0) sec POC Glucose (mg/dL) 54 L 140 H 247 H (70-110) mg/dL HDL Cholesterol (40.00-60.00) mg/dL
[2023-02-07 17:33] LABS: Glucose,Whole Blood 306 mg/dL (70-110)
[2023-02-07] MEDS: HEPARIN SOD,PORK IN 0.45% NACL 25,000 UNIT in 0.45% NACL 1 250ML.BAG IV SCH (19:53)
[2023-02-07 20:39] LABS: Glucose,Whole Blood 108 mg/dL (70-110)
[2023-02-07] MEDS: INSULIN DETEMIR (LEVEMIR) 100 UNIT/ML SYR SQ SCH (20:40)
[2023-02-08] MEDS: HYDROcodone/APAP 10-325MG 1 EACH TAB PO SCH ×3 (04:20→11:36)
[2023-02-08] MEDS: NITROGLYCERIN OINT 1 INCH/GM PACKET TOPICAL SCH ×2 (04:21→11:11)
[2023-02-08 07:31] LABS: Glucose,Whole Blood 211 mg/dL (70-110)
[2023-02-08 07:42] VITALS: BP 117/77; PULSE 72; RESP 18; TEMP 97.3
[2023-02-08] MEDS: ASPIRIN 325 MG TAB PO SCH (07:57)
[2023-02-08] MEDS: ATORVASTATIN 80 MG TAB PO SCH (07:58)
[2023-02-08] MEDS: metFORMIN 500 MG TAB PO SCH (07:58)
[2023-02-08] MEDS: PRASUGREL 10 MG TAB PO SCH (07:58)
[2023-02-08] MEDS: METOPROLOL TARTRATE 25 MG TAB PO SCH (07:58)
[2023-02-08] MEDS: lisinopriL 20 MG TAB PO SCH (07:59)
[2023-02-08] MEDS: INSULIN ASPART (NovoLOG) 100 UNIT/ML VIAL SQ SCH ×2 (07:59→12:34)
[2023-02-08 09:28] LABS: Basophils # (A) 0.02 X 10*3/uL (0.00-0.10); Basophils % (A) 0.2 %; Eosinophils # (A) 0.14 X 10*3/uL (0.04-0.35); Eosinophils % (A) 1.5 %; HCT 42.1 % (39.6-50.0); HGB 14.4 d/dL (12.0-15.0); Lymphocytes # (A) 2.64 X 10*3/uL (0.90-5.00); Lymphocytes % (A) 27.4 %; MCHC 34.2 d/dL (32.0-37.0); MCV 111.1 FL (80.0-97.0); Mean Platelet Volume 10.8 FL (9.5-12.2); Monocytes # (A) 0.72 X 10*3/uL (0.20-1.00); Monocytes % (A) 7.5 %; NRBC Per 100 WBC 0 X 10*3/uL (0.00-0.01); Neutrophils # (A) 6.07 X 10*3/uL (1.80-7.70); Neutrophils % (A) 63.1 %; Platelet Count 250 X 10*3/uL (140-440); RBC 3.79 X 10*6/uL (4.40-5.60); RDW 11.9 % (11.5-14.5); WBC 9.62 X 10*3/uL (4.50-10.00)
--- NOTE | 2023-02-08 10:24 | P.PN ---
Subjective Progress Note Date: 02/08/23 Patient is a pleasant 67-year-old male who presented to the hospital with an NSTEMI. Patient underwent PCI with stenting x2 to the LAD yesterday evening with successful reperfusion of the affected area. Patient this am reports no chest pain. He states that he has more energy today. Cath site on the right wrist is intact, with no hematoma, sensation is intact. Blood pressure 117/77, heart rate in the 70s, pulse ox 96% on room air, afebrile. Repeat CBC today reveals WBC 9.6, hemoglobin 14.4. Telemetry is sinus rhythm. Echocardiogram has been obtain report is pending. GENERAL: Well-appearing, well-nourished and in no acute distress. NECK: Supple without JVD or thyromegaly. LUNGS: Breath sounds clear to auscultation bilaterally. Respiration equal and unlabored. No wheezes, rales or rhonchi. HEART: Regular rate and rhythm without murmurs, rubs or gallops. S1 and S2 heard. EXTREMITIES: Normal range of motion, no edema. No clubbing or cyanosis. Peripheral pulses intact and strong. IMPRESSION: 1. Non-ST elevated [place] 2. Uncontrolled diabetes 3. Hypertension 4. Hyperlipidemia PLAN: Patient is cleared for discharge from cardiology. We will review echocardiogram this morning. Patient does not need to wait for this report and will see Dr. Ochoa in the office in one week. Continue current cardiac medications. Nurse practitioner note has been reviewed, I agree with the documented findings and plan of care. Patient was seen and examined. Objective - Vital Signs Vital signs: Vital Signs Temp 97.3 F L 02/08/23 07:10 Pulse 72 02/08/23 07:10 Resp 18 02/08/23 07:10 BP 117/77 02/08/23 07:10 Pulse Ox 96 02/08/23 07:56 FiO2 Intake & Output 02/07/23 02/08/23 02/08/23 18:59 06:59 18:59 Intake Total 354 Balance 354 Intake: Intake, IV Titration 0 Amount IV Fluid Continuation 1, 0 000 ml @ 0 mls/hr IV [facility] Rx#:[id number] Oral 354 Other: Voiding Method Toilet # Voids 2 - Labs CBC & Chem 7: 02/08/23 04:50 02/07/23 06:19 Labs: Abnormal Lab Results - Last 24 Hours (Table) 02/07/23 02/07/23 02/07/23 Range/Units 06:19 06:19 12:12 RBC 3.71 L (4.40-5.60) X 10*6/uL MCV 111.1 H (80.0-97.0) [place] MCH 37.7 H (27.0-32.0) pg Macrocytosis (manual) 2+ A Anion Gap 12.60 H (4.00-12.00) mmol/L BUN 7.2 L (9.0-27.0) mg/dL BUN/Creatinine Ratio 10.29 L (12.00-20.00) Ratio Glucose 226 H (70-110) mg/dL POC Glucose (mg/dL) 138 H (70-110) mg/dL 02/07/23 02/08/23 Range/Units 17:32 07:28 RBC (4.40-5.60) X 10*6/uL MCV (80.0-97.0) [place] MCH (27.0-32.0) pg Macrocytosis (manual) Anion Gap (4.00-12.00) mmol/L BUN (9.0-27.0) mg/dL BUN/Creatinine Ratio (12.00-20.00) Ratio Glucose (70-110) mg/dL POC Glucose (mg/dL) 306 H 211 H (70-110) mg/dL
[2023-02-08 10:26] LABS: ALT 13 U/L (10-49); AST 21 U/L (14-35); Albumin 4.8 d/dL (3.8-4.9); Albumin/Globulin Ratio 1.85 Ratio (1.60-3.17); Alkaline Phosphatase 60 U/L (41-126); BUN/Creat Ratio 10.71 Ratio (12.00-20.00); Blood Urea Nitrogen 7.5 mg/dL (9.0-27.0); Calcium 9.9 mg/dL (8.7-10.3); Carbon Dioxide 27.8 mmol/L (21.6-31.8); Chloride 101 mmol/L (96-109); Globulin 2.6 d/dL (1.6-3.3); Glucose 210 mg/dL (70-110); Potassium 4.2 mmol/L (3.5-5.5); Sodium 141 mmol/L (135-145); Total Bilirubin 0.5 mg/dL (0.3-1.2); Total Protein 7.4 d/dL (6.2-8.2)
--- NOTE | 2023-02-08 10:40 | CA ---
Transthoracic Echo Report Name: Boaz Reed Age: 67 Gender: M : 1955 Exam Date: 02/08/2023 08:24 Exam Location: [place] [facility] Ht (in): 70 Wt (lb): 175 Ordering Physician: Naresh Taveras Attending/Referring Phys: Nuclear Security Officer Dinorah Glass RDCS Procedure CPT: Indications: abnormal ekg Cardiac Hx: stents Technical Quality: Good Contrast 1: Total Dose (mL): Contrast 2: Total Dose (mL): MEASUREMENTS (Male / Female) Normal Values 2D ECHO LV Diastolic Diameter PLAX 4.6 cm 4.2 - 5.9 / 3.9 - 5.3 cm LV Systolic Diameter PLAX 3.2 cm IVS Diastolic Thickness 1.1 cm 0.6 - 1.0 / 0.6 - 0.9 cm LVPW Diastolic Thickness 1.3 cm 0.6 - 1.0 / 0.6 - 0.9 cm LV Relative Wall Thickness 0.5 RV Internal Dim ED PLAX 2.8 cm LA Systolic Diameter LX 3.2 cm 3.0 - 4.0 / 2.7 - 3.8 cm LV Diastolic Volume MOD 4C 90.4 cm??? LV Systolic Volume MOD 4C 52.4 cm??? LV Ejection Fraction MOD 4C 42.0 % LV Cardiac Index MOD 4C 1509.1 cm???/min???m??? LV Diastolic Length 4C 7.4 cm LV Systolic Length 4C 6.3 cm LV Diastolic Volume MOD 2C 69.5 cm??? LV Systolic Volume MOD 2C 39.0 cm??? LV Ejection Fraction MOD 2C 43.9 % LV Cardiac Index MOD 2C 1212.3 cm???/min???m??? LV Diastolic Length 2C 7.2 cm LV Systolic Length 2C 6.6 cm LA Volume 36.4 cm??? 18 - 58 / 22 - 52 cm??? M-MODE Aortic Root Diameter MM 3.6 cm MV E Point Septal Separation 0.6 cm AV Cusp Separation MM 2.2 cm DOPPLER AV Peak Velocity 152.5 cm/s AV Peak Gradient 9.3 mmHg MV Area PHT 2.3 cm??? Mitral E Point Velocity 61.0 cm/s Mitral A Point Velocity 85.3 cm/s Mitral E to A Ratio 0.7 MV Deceleration Time 332.7 ms FINDINGS Left Ventricle Left ventricular ejection fraction is estimated at 55 %. Left ventricular cavity size normal. Mild concentric left ventricular hypertrophy. Right Ventricle Normal right ventricular size and function. Unable to estimate the right ventricular systolic pressure. Right Atrium Normal right atrial size. Left Atrium Normal left atrial size. Mitral Valve Structurally normal mitral valve. No mitral stenosis, regurgitation or prolapse. Aortic Valve Trileaflet aortic valve. No aortic valve stenosis or regurgitation. Tricuspid Valve Structurally normal tricuspid valve. No tricuspid stenosis, regurgitation or prolapse. Pulmonic Valve Structurally normal pulmonic valve. No pulmonic regurgitation. Pericardium No pericardial effusion. Aorta Normal size aortic root and proximal ascending aorta. CONCLUSIONS Normal LV size and systolic function mild concentric LVH. No significant abnormality in the Doppler exam. Mild mitral annular calcification and aortic valve sclerosis without restriction. No pericardial effusion. No significant pulmonary hypertension Previewed by: Dr. Freeman Strong MD (Electronically Signed) Final Date: 08 February 2023 10:39
[2023-02-08 12:19] LABS: Glucose,Whole Blood 61 mg/dL (70-110)
[2023-02-08 13:46] VITALS: BMI 25.1
[2023-02-10] MEDS ORDERED: ERGOCALCIFEROL 1,250 MCG (50,000 IU) CAPSULE PO SCH (09:00)
--- NOTE | 2023-02-10 10:44 | P.DS ---
Providers Date of admission: 02/05/23 20:13 Expected date of discharge: 02/08/23 Attending physician: Catherine Barry Consults: 02/05/23 20:13 Consult Physician Urgent Consulting Provider: Montez Ochoa Consult Reason/Comments: nstemi Do you want consulting provider notified?: Yes 02/06/23 14:55 Consult Physician Routine Consulting Provider: [facility] Consult Reason/Comments: Post Interventional Patient Do you want consulting provider notified?: Already Contacted Primary care physician: Ctaherine Barry [facility] Course: Diagnosis on discharge: Acute non-ST elevated myocardial infarction. Status post cardiac cath with stent placement Underlying history of hypertension Underlying history of hyperlipidemia Underlying history of diabetes mellitus Underlying history of COPD Underlying history of osteoarthritis Underlying history of psoriasis Episode of severe headache likely related to Nitropaste, no evidence of intracranial bleeding on computed tomography scan Hospital course: Boaz Reed, is a 67-year-old male who presented to [facility] emergency room with a chief complaint of chest pain patient describes a pressure sensation in the middle of the chest radiating towards the left arm with episodes of sweating no nausea or vomiting no shortness of breath. He was evaluated in the emergency room vital examination on presentation revealed a temperature of 98.1 pulse 86 respiration 16 blood pressure 145/94 pulse ox 98% on room air Laboratory data revealed a white blood count of 7.4 hemoglobin 13.8 platelet count 234 d-dimer 0.19 troponin level 0.15 Testing in the emergency room revealed EKG done in the emergency room revealed sinus rhythm with evidence of inferior myocardial infarction with T-wave inversion in lead [address] segment abnormalities, chest x-ray done in the emergency room revealed no acute cardiopulmonary disease. Patient was admitted to medical floor for further evaluation and treatment, he was started on IV heparin, Nitropaste, cardiology consultation was requested. Shortly after presentation patient developed severe headache, at that point Nitropaste was held, IV heparin was held, computed tomography scan of the brain without contrast was done and there was no evidence of intracranial bleeding. patient is alert and oriented 3. Status post cardiac cath with two- step placement. Patient remains on aspirin and Effient. Per cardiology services would like to monitor patient for an additional 24 hours. Current vital signs temp 98.1, heart rate 72, respiratory rate 15, blood pressure 140/84 pulse ox 97 on room air On 02/08/2023 patient to be DC'd home. Patient to follow-up with PCP and consult providers for further management Patient Condition at Discharge: Stable Plan - Discharge Summary Discharge Rx Participant: No New Discharge Prescriptions: New Prasugrel [Effient] 10 mg PO DAILY #90 tab Atorvastatin [Lipitor] 80 mg PO DAILY #90 tab Metoprolol Tartrate [Lopressor] 25 mg PO BID #180 tab Aspirin EC [Ecotrin Low Dose] 81 mg PO DAILY #30 tab Nitroglycerin Sl Tabs [Nitrostat] 0.4 mg SUBLINGUAL Q5M PRN #25 tab PRN Reason: Chest Pain Continue Insulin Detemir (Levemir) [Levemir] 40 unit SQ HS metFORMIN HCL [Glucophage] 500 mg PO BID lisinopriL [Prinivil] 20 mg PO DAILY INSULIN ASPART (NovoLOG) [NovoLOG (formulary)] 30 unit SQ AC-TID HYDROcodone/APAP 10-325MG [[place] 10-325] 0.5 tab PO Q4HR Ergocalciferol (Vitamin D2) [Drisdol (50,000 Iu)] 1,250 mcg PO WE Discharge Medication List Insulin Detemir (Levemir) [Levemir] 40 unit SQ HS 02/03/14 [History] metFORMIN HCL [Glucophage] 500 mg PO BID 02/03/14 [History] lisinopriL [Prinivil] 20 mg PO DAILY 08/05/14 [History] INSULIN ASPART (NovoLOG) [NovoLOG (formulary)] 30 unit SQ AC-TID 04/15/20 [History] Ergocalciferol (Vitamin D2) [Drisdol (50,000 Iu)] 1,250 mcg PO WE 02/05/23 [History] HYDROcodone/APAP 10-325MG [[place] 10-325] 0.5 tab PO Q4HR 02/05/23 [History] Aspirin EC [Ecotrin Low Dose] 81 mg PO DAILY #30 tab 02/08/23 [Rx] Atorvastatin [Lipitor] 80 mg PO DAILY #90 tab 02/08/23 [Rx] Metoprolol Tartrate [Lopressor] 25 mg PO BID #180 tab 02/08/23 [Rx] Nitroglycerin Sl Tabs [Nitrostat] 0.4 mg SUBLINGUAL Q5M PRN #25 tab 02/08/23 [Rx] Prasugrel [Effient] 10 mg PO DAILY #90 tab 02/08/23 [Rx] Follow up Appointment(s)/Referral(s): Montez Ochoa MD [STAFF PHYSICIAN] - 1 Week (Office will call with appointment time and date.) Catherine Barry MD [Primary Care Provider] - 1-2 days Patient Instructions/Handouts: *Surgery [facility] - After Heart Catheterization - [facility] Instructions Discharge Disposition: HOME SELF-CARE
== END 2023-02-08 14:35 | disposition home or self-care (01) | DRG 247 ==
LOC: EC 19:18 → 3SCARD 20:13 → 6NMEDSUR 02-06 15:04
PROVIDERS: ADMIT Internal Medicine; ATTEND Internal Medicine
PROC: 4A033BC Measurement of Arterial Pressure, Coronary, Percutaneous Approach (ICD-10-PCS; 2023-02-06)
PROC: 027035Z Dilation of Coronary Artery, One Artery with Two Drug-eluting Intraluminal Devices, Percutaneous Approach (ICD-10-PCS; principal; 2023-02-06 13:00)
PROC: 4A023N7 Measurement of Cardiac Sampling and Pressure, Left Heart, Percutaneous Approach (ICD-10-PCS; 2023-02-06 13:00)
PROC: B2111ZZ Fluoroscopy of Multiple Coronary Arteries using Low Osmolar Contrast (ICD-10-PCS; 2023-02-06 13:00)
DX: I21.19 ST elevation (STEMI) myocardial infarction involving other coronary artery of inferior wall (principal); F32.A Depression, unspecified; H91.90 Unspecified hearing loss, unspecified ear; I10 Essential (primary) hypertension; E78.5 Hyperlipidemia, unspecified; J44.9 Chronic obstructive pulmonary disease, unspecified; E11.9 Type 2 diabetes mellitus without complications; L40.9 Psoriasis, unspecified; I25.110 Atherosclerotic heart disease of native coronary artery with unstable angina pectoris; Z96.643 Presence of artificial hip joint, bilateral; Z79.4 Long term (current) use of insulin; Z79.82 Long term (current) use of aspirin; Z79.84 Long term (current) use of oral hypoglycemic drugs; Z79.899 Other long term (current) drug therapy; Z86.73 Personal history of transient ischemic attack (TIA), and cerebral infarction without residual deficits; Z87.891 Personal history of nicotine dependence
CPT/HCPCS: 36415; 70450; 71046; 80053; 80061; 83735; 83880; 84484; 85025; 85379; 85610; 85730; 93005; 93306; 93458; 93799; 94760; 96365; 96366; 96375; 96376; 99291

== ENCOUNTER 2023-05-30 14:38 | Emergency (ER) | payer MEDICARE, OTHER ==
[2023-05-30 14:52] VITALS: TEMP 98.2
--- NOTE | 2023-05-30 16:35 | ED ---
General Adult HPI - General Chief complaint: Recheck/Abnormal Lab/Rx Stated complaint: nausea and dizzy Time Seen by Provider: 05/30/23 16:10 Source: patient Mode of arrival: ambulatory Limitations: no limitations - History of Present Illness Initial comments: 67 year Old male with past medical history significant for coronary artery disease s/p left heart cath on 02/05/23 presenting to the ED with a chief complaint of dizziness. Patient states for the past 2-3 months has had dizziness which she describes as feeling as she is going to pass out with a ssociated nausea. Patient states that he normally experiences this in the morning however may come on at any time of the day. Symptoms are intermittent in nature. Reports that symptoms can last for a few minutes to up to the whole day. No known provoking factors. No exacerbating or alleviating factors. States when discharged was placed on 4 new medications and notes that he thinks these medications may be causing his symptoms. Was placed on atorvastatin 80 mg daily, metoprolol 25 mg twice a day, lisinopril 20 mg once a day, and pasugrel 10 mg QD. Patient currently denies any symptoms. Denies dizziness, lightheadedness, chest pain, shortness of breath, nausea, vomiting, diarrhea, abdominal pain, urinary symptoms, change in bowel habit. No other complaints. - Related Data Home Medications Medication Instructions Recorded Confirmed Insulin Detemir (Levemir) [Levemir] 40 unit SQ HS 02/03/14 02/05/23 metFORMIN HCL [Glucophage] 500 mg PO BID 02/03/14 02/05/23 lisinopriL [Prinivil] 20 mg PO DAILY 08/05/14 02/05/23 INSULIN ASPART (NovoLOG) [NovoLOG 30 unit SQ AC-TID 04/15/20 02/05/23 (formulary)] Ergocalciferol (Vitamin D2) 1,250 mcg PO WE 02/05/23 02/05/23 [Drisdol (50,000 Iu)] HYDROcodone/APAP 10-325MG [[place] 0.5 tab PO Q4HR 02/05/23 02/05/23 10-325] Previous Rx's Medication Instructions Recorded Aspirin EC [Ecotrin Low Dose] 81 mg PO DAILY #30 tab 02/08/23 Atorvastatin [Lipitor] 80 mg PO DAILY #90 tab 02/08/23 Metoprolol Tartrate [Lopressor] 25 mg PO BID #180 tab 02/08/23 Nitroglycerin Sl Tabs [Nitrostat] 0.4 mg SUBLINGUAL Q5M PRN #25 tab 02/08/23 Prasugrel [Effient] 10 mg PO DAILY #90 tab 02/08/23 Allergies Allergy/AdvReac Type Severity Reaction Status Date / Time No Known Allergies Allergy Verified 05/30/23 14:44 Review of Systems ROS Statement: Those systems with pertinent positive or pertinent negative responses have been documented in the HPI. ROS Other: All systems not noted in ROS Statement are negative. Past Medical History Past Medical History: Asthma, COPD, CVA/TIA, Diabetes Mellitus, Hearing Disorder / Deafness, Hyperlipidemia, Hypertension, Osteoarthritis (OA), Skin Disorder Additional Past Medical History / Comment(s): IDDM type II, arthritis in multiple joints, psoriasis, vitiligo, HOOPA, hx of feeling lightheaded and falls., ? Hx of CVA- states left arm weak-unable to lift or reach far-unable to grasp with left hand , weakness left leg and states left foot drops down and catches on everything., states fall after Left Hip surgery with fx., uses wheelchair and cane., lower back and left hip pain, left arm fracture. History of Any Multi-Drug Resistant Organisms: None Reported Past Surgical History: Joint Replacement Additional Past Surgical History / Comment(s): Bilateral hip replacements Past Anesthesia/Blood Transfusion Reactions: No Reported Reaction Additional Past Anesthesia/Blood Transfusion Reaction / Comment(s): pt states was unable to receive spinal tap with last surgery d/t arthritis in back, received general anesthetic" Past Psychological History: Depression Smoking Status: Former smoker Past Alcohol Use History: None Reported Past Drug Use History: Marijuana - Past Family History Mother Family Medical History: Eye Disorder, Hearing Disorder / Deafness Additional Family Medical History / Comment(s): Father is 90yrs old. He has glaucoma and is emmonak. General Exam Limitations: no limitations General appearance: alert, in no apparent distress Neck exam: Present: normal inspection Respiratory exam: Present: normal lung sounds bilaterally Cardiovascular Exam: Present: regular rate, normal rhythm GI/Abdominal exam: Present: soft Neurological exam: Present: alert, oriented X3, CN II-XII intact (Finger to nose, rapid alternating hand movements, [id number] intact.) Skin exam: Present: warm, dry Course Vital Signs 05/30/23 05/30/23 14:42 17:11 Temperature 98.2 F Pulse Rate 68 Pulse Rate [ 67 Pulse Oximetery ] Respiratory 20 18 Rate Blood Pressure 155/71 Blood Pressure 166/74 [Left Arm Sitting] Blood Pressure 150/76 [Left Arm Standing] Blood Pressure 157/77 [Left Arm Supine] O2 Sat by Pulse 99 99 Oximetry Medical Decision Making - Medical Decision Making Was pt. sent in by a medical professional or institution (, PA, PRESCHOOL ASSISTANT PRINCIPAL, urgent care, hospital, or prison...) When possible be specific @ -No Did you speak to anyone other than the patient for history (EMS, parent, family, police, friend...)? What history was obtained from this source @ -No Did you review nursing and triage notes (agree or disagree)? Why? @ -I reviewed and agree with nursing and triage notes Were old charts reviewed (outside hosp., previous admission, EMS record, old EKG, old radiological studies, urgent care reports/EKG's, prison records)? Report findings @ -No old charts were reviewed Differential Diagnosis (chest pain, altered mental status, abdominal pain women, abdominal pain men, vaginal bleeding, weakness, fever, dyspnea, syncope, headache, dizziness, GI bleed, back pain, seizure, CVA, palpatations, mental health, musculoskeletal)? @ -Differential Dizziness: Benign paroxysmal positional Vertigo, Menieres disease, otitis media, acoustic neuroma, vertebrobasilar insufficiency, cerebellar stroke, encephalitis, hypovolemic, arrhythmia, coronary artery syndrome, anemia, this is not meant to be an all-inclusive list EKG interpreted by me (3pts min.). @ -As above X-rays interpreted by me (1pt min.). @ -None done CT interpreted by me (1pt min.). @ -None done U/S interpreted by me (1pt. min.). @ -None done What testing was considered but not performed or refused? (CT, X-rays, U/S, labs)? Why? @ -CT brain was considered however at this time symptoms are chronic in nature and patient had an unremarkable neurologic exam. Additionally, no current symptoms while in the ED at this time. What meds were considered but not given or refused? Why? @ -None Did you discuss the management of the patient with other professionals (professionals i.e. DrSteve, PA, PRESCHOOL ASSISTANT PRINCIPAL, lab, RT, psych nurse, director social welfare, lay out former, teacher, airconditioning drafting officer, counter caser)? Give summary @ -No Was smoking cessation discussed for >3mins.? @ -No Was critical care preformed (if so, how long)? @ -No Were there social determinants of health that impacted care today? How? (Homelessness, low income, unemployed, alcoholism, drug addiction, hammond sportation, low edu. Level, literacy, decrease access to med. care, [facility], rehab)? @ -No Was there de-escalation of care discussed even if they declined (Discuss DNR or withdrawal of care, Hospice)? DNR status @ -No What co-morbidities impacted this encounter? (DM, HTN, Smoking, COPD, CAD, Cancer, CVA, ARF, Chemo, Hep., AIDS, mental health diagnosis, sleep apnea, morbid obesity)? @ -CAD Was patient admitted / discharged? Hospital course, mention meds given and route, prescriptions, significant lab abnormalities, going to OR and other pertinent info. @ -Discharge 67-year-old male presents to the ED with a chief complaint of dizziness. Reports dizziness ongoing for last 2-3 months and patient attributes it to his medications. Here, laboratory studies largely unremarkable with chronic derangements noted on patient's CBC, otherwise CMP and urinalysis unremarkable. EKG here showed a normal sinus rhythm without acute ST or T-wave changes. Patient discharged home in stable condition. Discussed return precautions with patient who verbalizes agreement. Undiagnosed new problem with uncertain prognosis? @ -No Drug Therapy requiring intensive monitoring for toxicity (Heparin, Nitro, Insulin, Cardizem)? @ -No Were any procedures done? @ -No Diagnosis/symptom? @ -Dizziness Acute, or Chronic, or Acute on Chronic? @ -Acute Uncomplicated (without systemic symptoms) or Complicated (systemic symptoms)? @ -Uncomplicated Side effects of treatment? @ -No Exacerbation, Progression, or Severe Exacerbation? @ -No Poses a threat to life or bodily function? How? (Chest pain, [place], [place], pneumonia, PE, COPD, DKA, ARF, appy, cholecystitis, CVA, Diverticulitis, Homicidal, Suicidal, threat to staff... and all critical care pts) @ -No - Lab Data Result diagrams: 05/30/23 16:47 05/30/23 16:47 Lab Results 05/30/23 05/30/23 05/30/23 Range/Units 16:47 16:47 16:47 WBC 4.1 (3.8-10.6) k/uL RBC 2.66 L (4.30-5.90) m/uL Hgb 11.2 L (13.0-17.5) gm/dL Hct 31.2 L (39.0-53.0) % MCV 117.6 H (80.0-100.0) fL MCH 42.0 H (25.0-35.0) pg MCHC 35.8 (31.0-37.0) g/dL RDW 18.0 H (11.5-15.5) % Plt Count 254 (150-450) k/uL MPV 9.2 Anisocytosis Slight Macrocytosis Marked A PT 11.1 (10.0-12.5) sec INR 1.0 (<1.2) Sodium (137-145) mmol/L Potassium (3.5-5.1) mmol/L Chloride (98-107) mmol/L Carbon Dioxide (22-30) mmol/L Anion Gap mmol/L BUN (9-20) mg/dL Creatinine (0.66-1.25) mg/dL Est GFR (CKD-EPI)AfAm (>60 ml/min/1.73 sqM) Est GFR (CKD-EPI)NonAf (>60 ml/min/1.73 sqM) Glucose (74-99) mg/dL Calcium (8.4-10.2) mg/dL Total Bilirubin (0.2-1.3) mg/dL AST (17-59) U/L ALT (4-49) U/L Alkaline Phosphatase (38-126) U/L Troponin I (0.000-0.034) ng/mL Total Protein (6.3-8.2) g/dL Albumin (3.5-5.0) g/dL Urine Color Yellow Urine Appearance Clear (Clear) Urine pH 6.0 (5.0-8.0) Ur Specific [place] 1.020 (1.001-1.035) Urine Protein Negative (Negative) Urine Glucose (UA) 4+ H (Negative) Urine Ketones Negative (Negative) Urine Blood Negative (Negative) Urine Nitrite Negative (Negative) Urine Bilirubin Negative (Negative) Urine Urobilinogen <2.0 (<2.0) mg/dL Ur Leukocyte Esterase Negative (Negative) 05/30/23 05/30/23 Range/Units 16:47 16:47 WBC (3.8-10.6) k/uL RBC (4.30-5.90) m/uL Hgb (13.0-17.5) gm/dL Hct (39.0-53.0) % MCV (80.0-100.0) fL MCH (25.0-35.0) pg MCHC (31.0-37.0) g/dL RDW (11.5-15.5) % Plt Count (150-450) k/uL MPV Anisocytosis Macrocytosis PT (10.0-12.5) sec INR (<1.2) Sodium 136 L (137-145) mmol/L Potassium 4.4 (3.5-5.1) mmol/L Chloride 102 (98-107) mmol/L Carbon Dioxide 27 (22-30) mmol/L Anion Gap 7 mmol/L BUN 10 (9-20) mg/dL Creatinine 0.43 L (0.66-1.25) mg/dL Est GFR (CKD-EPI)AfAm >90 (>60 ml/min/1.73 sqM) Est GFR (CKD-EPI)NonAf >90 (>60 ml/min/1.73 sqM) Glucose 206 H (74-99) mg/dL Calcium 8.8 (8.4-10.2) mg/dL Total Bilirubin 1.0 (0.2-1.3) mg/dL AST 23 (17-59) U/L ALT 16 (4-49) U/L Alkaline Phosphatase 49 (38-126) U/L Troponin I <0.012 (0.000-0.034) ng/mL Total Protein 6.4 (6.3-8.2) g/dL Albumin 3.9 (3.5-5.0) g/dL Urine Color Urine Appearance (Clear) Urine pH (5.0-8.0) Ur Specific [place] (1.001-1.035) Urine Protein (Negative) Urine Glucose (UA) (Negative) Urine Ketones (Negative) Urine Blood (Negative) Urine Nitrite (Negative) Urine Bilirubin (Negative) Urine Urobilinogen (<2.0) mg/dL Ur Leukocyte Esterase (Negative) - EKG Data EKG Comments: KG shows a sinus rhythm at [address]-T wave changes. IL 148, QRS 87, QT/QTC 393/41. Disposition Clinical Impression: Dizziness Disposition: HOME SELF-CARE Condition: Good Additional Instructions: Please return to the Emergency Department if symptoms worsen or any other concerns. Is patient prescribed a controlled substance at d/c from ED?: No Referrals: Catherine Barry MD [Primary Care Provider] - 1-2 days César Ibarra MD [STAFF PHYSICIAN] - 1-2 days Time of Disposition: 18:00
[2023-05-30] MEDS ORDERED: SODIUM CHLORIDE 0.9% 1,000 ML IV STA (16:42)
[2023-05-30 17:14] VITALS: RESP 18
[2023-05-30 17:24] LABS: ALT 16 U/L (4-49); AST 23 U/L (17-59); African American GFR (CKD) >90 (>60 ml/min/1.73 sqM); Albumin 3.9 g/dL (3.5-5.0); Alkaline Phosphatase 49 U/L (38-126); Anion Gap 7 mmol/L; Blood Urea Nitrogen 10 mg/dL (9-20); Calcium 8.8 mg/dL (8.4-10.2); Carbon Dioxide 27 mmol/L (22-30); Chloride 102 mmol/L (98-107); Glucose 206 mg/dL (74-99); Non-African American GFR(CKD) >90 (>60 ml/min/1.73 sqM); Potassium 4.4 mmol/L (3.5-5.1); Sodium 136 mmol/L (137-145); Total Protein 6.4 g/dL (6.3-8.2)
[2023-05-30 17:26] LABS: Anisocytosis Slight; Appearance,Urine Clear (Clear); Basophils % (A) 0 %; Bilirubin,Urine Negative (Negative); Blood,Urine Negative (Negative); Color,Urine Yellow; Eosinophils # (A) 0.1 k/uL (0-0.7); Eosinophils % (A) 3 %; Glucose,Urine (UA) 4+ (Negative); HCT 31.2 % (39.0-53.0); HGB 11.2 gm/dL (13.0-17.5); Ketones,Urine Negative (Negative); Leukocyte Esterase,Urine Negative (Negative); Lymphocytes # (A) 1.4 k/uL (1.0-4.8); Lymphocytes % (A) 33 %; MCHC 35.8 g/dL (31.0-37.0); MCV 117.6 fL (80.0-100.0); Macrocytosis Marked; Mean Platelet Volume 9.2; Monocytes # (A) 0.2 k/uL (0-1.0); Monocytes % (A) 4 %; Neutrophils # (A) 2.4 k/uL (1.3-7.7); Neutrophils % (A) 58 %; Nitrite,Urine Negative (Negative); Platelet Count 254 k/uL (150-450); Protein,Urine Negative (Negative); RBC 2.66 m/uL (4.30-5.90); Urobilinogen,Urine <2.0 mg/dL (<2.0); WBC 4.1 k/uL (3.8-10.6)
[2023-05-30 17:30] LABS: Prothrombin Time 11.1 sec (10.0-12.5)
[2023-05-30 18:34] VITALS: BP 151/67; PULSE 73
== END 2023-05-30 18:19 | disposition home or self-care (01) ==
LOC: EC 14:38
DX: R42 Dizziness and giddiness (principal); E11.9 Type 2 diabetes mellitus without complications; I10 Essential (primary) hypertension; I25.10 Atherosclerotic heart disease of native coronary artery without angina pectoris; J44.9 Chronic obstructive pulmonary disease, unspecified; Z79.4 Long term (current) use of insulin; Z79.84 Long term (current) use of oral hypoglycemic drugs; Z79.899 Other long term (current) drug therapy; Z86.73 Personal history of transient ischemic attack (TIA), and cerebral infarction without residual deficits; Z87.891 Personal history of nicotine dependence
CPT/HCPCS: 36415; 80053; 81003; 84484; 85025; 85610; 96360; 99283

== ENCOUNTER 2024-01-03 18:23 | Emergency (ER) | payer MEDICARE, OTHER ==
--- NOTE | 2024-01-03 19:11 | ED ---
General Adult HPI <Woodrow Jasso - Last Filed: 01/03/24 22:38> - General Source: patient, RN notes reviewed Mode of arrival: ambulatory Limitations: no limitations <Adela Castro - Last Filed: 01/03/24 22:47> - General Chief complaint: Syncope Stated complaint: Syncope, Nausea Time Seen by Provider: 01/03/24 18:40 - History of Present Illness Initial comments: Kelly Bennett- This is a 68-year-old male presents to the emergency department chief complaint of syncopal episodes over the past few months. Patient states his most recent episode was this afternoon and at 1600 when he stood up from the couch and had a blackout sensation. He also states that he has been feeling weak. Patient has a history of cardiac stents a few months ago and is unaware if he is on any blood thinners. (Adela Castro) - Related Data Home Medications Medication Instructions Recorded Confirmed Insulin Detemir (Levemir) [Levemir] 40 unit SQ HS 02/03/14 02/05/23 metFORMIN HCL [Glucophage] 500 mg PO BID 02/03/14 02/05/23 lisinopriL [Prinivil] 20 mg PO DAILY 08/05/14 02/05/23 INSULIN ASPART (NovoLOG) [NovoLOG 30 unit SQ AC-TID 04/15/20 02/05/23 (formulary)] Ergocalciferol (Vitamin D2) 1,250 mcg PO WE 02/05/23 02/05/23 [Drisdol (50,000 Iu)] HYDROcodone/APAP 10-325MG [[place] 0.5 tab PO Q4HR 02/05/23 02/05/23 10-325] Previous Rx's Medication Instructions Recorded Aspirin EC [Ecotrin Low Dose] 81 mg PO DAILY #30 tab 02/08/23 Atorvastatin [Lipitor] 80 mg PO DAILY #90 tab 02/08/23 Metoprolol Tartrate [Lopressor] 25 mg PO BID #180 tab 02/08/23 Nitroglycerin Sl Tabs [Nitrostat] 0.4 mg SUBLINGUAL Q5M PRN #25 tab 02/08/23 Prasugrel [Effient] 10 mg PO DAILY #90 tab 02/08/23 Allergies Allergy/AdvReac Type Severity Reaction Status Date / Time No Known Allergies Allergy Verified 01/03/24 18:42 Review of Systems ROS Other: All systems not noted in ROS Statement are negative. <Woodrow Jasso - Last Filed: 01/03/24 22:38> ROS Other: All systems not noted in ROS Statement are negative. <Adela Castro - Last Filed: 01/03/24 22:47> ROS Statement: Those systems with pertinent positive or pertinent negative responses have been documented in the HPI. Past Medical History Past Medical History: Asthma, COPD, CVA/TIA, Diabetes Mellitus, Hearing Disorder / Deafness, Hyperlipidemia, Hypertension, Osteoarthritis (OA), Skin Disorder Additional Past Medical History / Comment(s): IDDM type II, arthritis in multiple joints, psoriasis, vitiligo, [place]AK, hx of feeling lightheaded and falls., ? Hx of CVA- states left arm weak-unable to lift or reach far-unable to grasp with left hand , weakness left leg and states left foot drops down and catches on everything., states fall after Left Hip surgery with fx., uses wheelchair and cane., lower back and left hip pain, left arm fracture. History of Any Multi-Drug Resistant Organisms: None Reported Past Surgical History: Joint Replacement Additional Past Surgical History / Comment(s): Bilateral hip replacements Past Anesthesia/Blood Transfusion Reactions: No Reported Reaction Additional Past Anesthesia/Blood Transfusion Reaction / Comment(s): pt states was unable to receive spinal tap with last surgery d/t arthritis in back, received general anesthetic" Past Psychological History: Depression Smoking Status: Former smoker Past Alcohol Use History: None Reported Past Drug Use History: Marijuana - Past Family History Mother Family Medical History: Eye Disorder, Hearing Disorder / Deafness Additional Family Medical History / Comment(s): Father is 90yrs old. He has glaucoma and is craig. <Adela Castro - Last Filed: 01/03/24 22:47> General Exam Limitations: no limitations <Adela Castro - Last Filed: 01/03/24 22:47> - General Exam Comments Initial Comments: Visual Physical Exam Vital signs reviewed General: Well-appearing, nontoxic, no acute distress. Head: Normocephalic, atraumatic Eyes: PERRLA, EOMI ENT: Airway patent Chest: Nonlabored breathing Skin: No visual rash, normal skin tone Neuro: Alert and oriented 3 Musculoskeletal: No gross abnormalities (Adela Castro) Course Vital Signs 01/03/24 01/03/24 01/03/24 18:38 21:30 21:45 Temperature 98.3 F Pulse Rate 91 79 74 Respiratory 18 16 16 Rate Blood Pressure 147/79 90/56 119/65 O2 Sat by Pulse 99 99 99 Oximetry 01/03/24 01/03/24 22:00 22:30 Temperature Pulse Rate 80 69 Respiratory 17 17 Rate Blood Pressure 96/56 120/77 O2 Sat by Pulse 99 98 Oximetry EKG Findings - EKG Comments: EKG Findings:: EKG is sinus 87 [place] 147 QRS 89 QTc 405 <Woodrow Jasso - Last Filed: 01/03/24 22:38> Medical Decision Making - Lab Data Result diagrams: 01/03/24 19:39 01/03/24 19:39 <Woodrow Jasso - Last Filed: 01/03/24 22:38> - Lab Data Result diagrams: 01/03/24 19:39 01/03/24 19:39 <Adela Castro - Last Filed: 01/03/24 22:47> - Medical Decision Making I completed the quick note portion of this chart signed Adela Castro PA-C (Adela Castro) - Lab Data Lab Results 01/03/24 01/03/24 01/03/24 Range/Units 19:39 19:39 19:39 WBC 4.2 (3.8-10.6) k/uL RBC 2.81 L (4.30-5.90) m/uL Hgb 12.0 L (13.0-17.5) gm/dL Hct 34.8 L (39.0-53.0) % MCV 123.7 H (80.0-100.0) fL MCH 42.8 H (25.0-35.0) pg MCHC 34.6 (31.0-37.0) g/dL RDW 14.0 (11.5-15.5) % Plt Count 161 (150-450) k/uL MPV 9.1 Neutrophils % 51 % Lymphocytes % 40 % Monocytes % 4 % Eosinophils % 3 % Basophils % 0 % Neutrophils # 2.2 (1.3-7.7) k/uL Lymphocytes # 1.7 (1.0-4.8) k/uL Monocytes # 0.2 (0-1.0) k/uL Eosinophils # 0.1 (0-0.7) k/uL Basophils # 0.0 (0-0.2) k/uL Manual Slide Review Performed Macrocytosis Marked A PT 11.0 (10.0-12.5) sec INR 1.0 (<1.2) APTT 24.3 (22.0-30.0) sec Sodium 138 (137-145) mmol/L Potassium 3.9 (3.5-5.1) mmol/L Chloride 103 (98-107) mmol/L Carbon Dioxide 30 (22-30) mmol/L Anion Gap 5 mmol/L BUN 10 (9-20) mg/dL Creatinine 0.42 L (0.66-1.25) mg/dL Est GFR (CKD-EPI)AfAm >90 (>60 ml/min/1.73 sqM) Est GFR (CKD-EPI)NonAf >90 (>60 ml/min/1.73 sqM) Glucose 200 H (74-99) mg/dL Calcium 9.0 (8.4-10.2) mg/dL Magnesium 1.9 (1.6-2.3) mg/dL Total Bilirubin 1.2 (0.2-1.3) mg/dL AST 21 (17-59) U/L ALT 16 (4-49) U/L Alkaline Phosphatase 49 (38-126) U/L Troponin I (0.000-0.034) ng/mL Total Protein 7.1 (6.3-8.2) g/dL Albumin 4.5 (3.5-5.0) g/dL 01/03/24 Range/Units 19:39 WBC (3.8-10.6) k/uL RBC (4.30-5.90) m/uL Hgb (13.0-17.5) gm/dL Hct (39.0-53.0) % MCV (80.0-100.0) fL MCH (25.0-35.0) pg MCHC (31.0-37.0) g/dL RDW (11.5-15.5) % Plt Count (150-450) k/uL MPV Neutrophils % % Lymphocytes % % Monocytes % % Eosinophils % % Basophils % % Neutrophils # (1.3-7.7) k/uL Lymphocytes # (1.0-4.8) k/uL Monocytes # (0-1.0) k/uL Eosinophils # (0-0.7) k/uL Basophils # (0-0.2) k/uL Manual Slide Review Macrocytosis PT (10.0-12.5) sec INR (<1.2) APTT (22.0-30.0) sec Sodium (137-145) mmol/L Potassium (3.5-5.1) mmol/L Chloride (98-107) mmol/L Carbon Dioxide (22-30) mmol/L Anion Gap mmol/L BUN (9-20) mg/dL Creatinine (0.66-1.25) mg/dL Est GFR (CKD-EPI)AfAm (>60 ml/min/1.73 sqM) Est GFR (CKD-EPI)NonAf (>60 ml/min/1.73 sqM) Glucose (74-99) mg/dL Calcium (8.4-10.2) mg/dL Magnesium (1.6-2.3) mg/dL Total Bilirubin (0.2-1.3) mg/dL AST (17-59) U/L ALT (4-49) U/L Alkaline Phosphatase (38-126) U/L Troponin I <0.012 (0.000-0.034) ng/mL Total Protein (6.3-8.2) g/dL Albumin (3.5-5.0) g/dL Disposition Is patient prescribed a controlled substance at d/c from ED?: No Time of Disposition: 22:30 <Woodrow Jasso - Last Filed: 01/03/24 22:38> <Adela Castro - Last Filed: 01/03/24 22:47> Clinical Impression: Chest pain Disposition: HOME SELF-CARE Condition: Undetermined Instructions (If sedation given, give patient instructions): Angina (ED), Chest Pain (ED) Referrals: Catherine Barry MD [Primary Care Provider] - 1-2 days
[2024-01-03 20:00] LABS: Partial Thromboplastin Time 24.3 sec (22.0-30.0)
[2024-01-03 20:04] LABS: ALT 16 U/L (4-49); AST 21 U/L (17-59); African American GFR (CKD) >90 (>60 ml/min/1.73 sqM); Albumin 4.5 g/dL (3.5-5.0); Alkaline Phosphatase 49 U/L (38-126); Anion Gap 5 mmol/L; Blood Urea Nitrogen 10 mg/dL (9-20); Carbon Dioxide 30 mmol/L (22-30); Chloride 103 mmol/L (98-107); Glucose 200 mg/dL (74-99); Magnesium 1.9 mg/dL (1.6-2.3); Non-African American GFR(CKD) >90 (>60 ml/min/1.73 sqM); Potassium 3.9 mmol/L (3.5-5.1); Sodium 138 mmol/L (137-145); Total Bilirubin 1.2 mg/dL (0.2-1.3); Total Protein 7.1 g/dL (6.3-8.2)
[2024-01-03 20:16] LABS: Basophils % (A) 0 %; Eosinophils # (A) 0.1 k/uL (0-0.7); Eosinophils % (A) 3 %; HCT 34.8 % (39.0-53.0); Lymphocytes # (A) 1.7 k/uL (1.0-4.8); Lymphocytes % (A) 40 %; MCHC 34.6 g/dL (31.0-37.0); MCV 123.7 fL (80.0-100.0); Macrocytosis Marked; Mean Platelet Volume 9.1; Monocytes # (A) 0.2 k/uL (0-1.0); Monocytes % (A) 4 %; Neutrophils # (A) 2.2 k/uL (1.3-7.7); Neutrophils % (A) 51 %; Platelet Count 161 k/uL (150-450); RBC 2.81 m/uL (4.30-5.90); WBC 4.2 k/uL (3.8-10.6)
--- NOTE | 2024-01-03 20:44 | XR ---
EXAMINATION TYPE: XR chest 2V DATE OF EXAM: 01/03/2024 7:46 PM CLINICAL INDICATION:Male, 68 years old with history of syncope; [facility] COMPARISON: 02/05/2023 TECHNIQUE: XR chest 2V. Frontal and lateral views of the chest.. FINDINGS: Lines/Tubes/Devices: No indwelling lines are seen. Some sort of rounded medical/electronic device is again seen on the lat eral view may be in the soft tissues of the arm. Heart/mediastinum: Heart size is normal. Mediastinum appears normal. Pulmonary vascularity: Not increased, Lungs/Pleura: There is no evidence of pleural effusion, focal consolidation, or pneumothorax. Musculoskeletal: No acute osseous abnormality demonstrated in the limits of the exam. Remote deformity proximal left humerus. Degenerative changes of the shoulders and spine. Other findings: None. IMPRESSION: No acute cardiopulmonary abnormality.
[2024-01-03 21:02] LABS: MCH 42.8 pg (25.0-35.0)
[2024-01-03] MEDS: NITROGLYCERIN SL TABS 0.4 MG TAB SUBLINGUAL STA (21:27)
[2024-01-03 21:49] VITALS: RESP 16
[2024-01-03 23:26] VITALS: BP 123/74; PULSE 78; TEMP 98.5
== END 2024-01-03 23:09 | disposition home or self-care (01) ==
LOC: EC 18:23
DX: R07.89 Other chest pain (principal); Z87.891 Personal history of nicotine dependence
CPT/HCPCS: 36415; 71046; 80053; 83735; 84484; 85025; 85610; 85730; 93005; 99284

== ENCOUNTER 2024-01-17 12:55 | Emergency (ER) | payer MEDICARE, OTHER ==
[2024-01-17 13:26] LABS: Glucose,Whole Blood 240 mg/dL (70-110)
[2024-01-17 13:32] VITALS: BP 138/77; PULSE 93; RESP 16; TEMP 97.8
--- NOTE | 2024-01-17 13:34 | ED ---
Fall HPI - General Source: patient, RN notes reviewed, old records reviewed Mode of arrival: EMS Limitations: no limitations - History of Present Illness MD Complaint: fall, other (Hip pain back pain) <Woodrow Jasso - Last Filed: 01/17/24 13:34> - General Source: patient, RN notes reviewed Mode of arrival: ambulatory Limitations: no limitations <Suleman Lancaster - Last Filed: 01/18/24 06:21> - General Chief Complaint: Fall Stated Complaint: Fall-back injury Time Seen by Provider: 01/17/24 13:14 - History of Present Illness Initial Comments: QN-68 male to the ER for evaluation today. Patient coming in for a fall no blood thinners fall from 2 steps complaining of severe pelvic pain lumbar spine pain hip pain (Woodrow Jasso) 68-year-old male presents emergency department with chief complaint of fall. Patient states he is coming out of his RV in which he fell. He states he fell more forward he denies any head injury no loss conscious denies any neck or extremity injuries. Patient states that he has some lower back, pelvic discomfort but is able to ambulate. He is on no blood thinners. He denies any bowel, bladder incontinence retention no saddle anesthesias. (Suleman Lancaster) - Related Data Home Medications Medication Instructions Recorded Confirmed Insulin Detemir (Levemir) [Levemir] 40 unit SQ HS 02/03/14 02/05/23 metFORMIN HCL [Glucophage] 500 mg PO BID 02/03/14 02/05/23 lisinopriL [Prinivil] 20 mg PO DAILY 08/05/14 02/05/23 INSULIN ASPART (NovoLOG) [NovoLOG 30 unit SQ AC-TID 04/15/20 02/05/23 (formulary)] Ergocalciferol (Vitamin D2) 1,250 mcg PO WE 02/05/23 02/05/23 [Drisdol (50,000 Iu)] HYDROcodone/APAP 10-325MG [[place] 0.5 tab PO Q4HR 02/05/23 02/05/23 10-325] Previous Rx's Medication Instructions Recorded Aspirin EC [Ecotrin Low Dose] 81 mg PO DAILY #30 tab 02/08/23 Atorvastatin [Lipitor] 80 mg PO DAILY #90 tab 02/08/23 Metoprolol Tartrate [Lopressor] 25 mg PO BID #180 tab 02/08/23 Nitroglycerin Sl Tabs [Nitrostat] 0.4 mg SUBLINGUAL Q5M PRN #25 tab 02/08/23 Prasugrel [Effient] 10 mg PO DAILY #90 tab 02/08/23 Cyclobenzaprine [Flexeril] 5 mg PO TID PRN #15 tablet 01/17/24 Allergies Allergy/AdvReac Type Severity Reaction Status Date / Time No Known Allergies Allergy Verified 01/17/24 13:22 Review of Systems ROS Other: All systems not noted in ROS Statement are negative. <Woodrow Jasso - Last Filed: 01/17/24 13:34> ROS Other: All systems not noted in ROS Statement are negative. <Suleman Lancaster - Last Filed: 01/18/24 06:21> ROS Statement: Those systems with pertinent positive or pertinent negative responses have been documented in the HPI. Past Medical History Past Medical History: Asthma, COPD, CVA/TIA, Diabetes Mellitus, Hearing Disorder / Deafness, Hyperlipidemia, Hypertension, Osteoarthritis (OA), Skin Disorder Additional Past Medical History / Comment(s): IDDM type II, arthritis in multiple joints, psoriasis, vitiligo, TELIDA, hx of feeling lightheaded and falls., ? Hx of CVA- states left arm weak-unable to lift or reach far-unable to grasp with left hand , weakness left leg and states left foot drops down and catches on everything., states fall after Left Hip surgery with fx., uses wheelchair and cane., lower back and left hip pain, left arm fracture. History of Any Multi-Drug Resistant Organisms: None Reported Past Surgical History: Joint Replacement Additional Past Surgical History / Comment(s): Bilateral hip replacements Past Anesthesia/Blood Transfusion Reactions: No Reported Reaction Additional Past Anesthesia/Blood Transfusion Reaction / Comment(s): pt states was unable to receive spinal tap with last surgery d/t arthritis in back, received general anesthetic" Past Psychological History: Depression Smoking Status: Former smoker Past Alcohol Use History: None Reported Past Drug Use History: Marijuana - Past Family History Mother Family Medical History: Eye Disorder, Hearing Disorder / Deafness Additional Family Medical History / Comment(s): Father is 90yrs old. He has glaucoma and is [place]. <Woodrow Jasso - Last Filed: 01/17/24 13:34> General Exam Limitations: no limitations General appearance: alert, in no apparent distress Head exam: Present: atraumatic, normocephalic, normal inspection Eye exam: Present: normal appearance, PERRL, EOMI. Absent: scleral icterus, conjunctival injection, periorbital swelling ENT exam: Present: normal exam, mucous membranes moist Neck exam: Present: normal inspection. Absent: tenderness, meningismus, lymphadenopathy Respiratory exam: Present: normal lung sounds bilaterally. Absent: respiratory distress, wheezes, rales, rhonchi, stridor Cardiovascular Exam: Present: regular rate, normal rhythm, normal heart sounds. Absent: systolic murmur, diastolic murmur, rubs, gallop, clicks GI/Abdominal exam: Present: soft, normal bowel sounds. Absent: distended, tenderness, guarding, rebound, rigid Extremities exam: Present: normal inspection, full ROM, normal capillary refill. Absent: tenderness, pedal edema, joint swelling, calf tenderness Back exam: Present: normal inspection Neurological exam: Present: alert, oriented X3, CN II-XII intact Psychiatric exam: Present: normal affect, normal mood Skin exam: Present: warm, dry, intact, normal color. Absent: rash <Woodrow Jasso - Last Filed: 01/17/24 13:34> General appearance: alert, in no apparent distress Head exam: Present: atraumatic, normocephalic, normal inspection ENT exam: Present: normal exam, mucous membranes moist Neck exam: Present: normal inspection. Absent: tenderness, meningismus, lymphadenopathy Respiratory exam: Present: normal lung sounds bilaterally. Absent: respiratory distress, wheezes, rales, rhonchi, stridor Cardiovascular Exam: Present: regular rate, normal rhythm, normal heart sounds. Absent: systolic murmur, diastolic murmur, rubs, gallop, clicks Extremities exam: Present: normal inspection, full ROM, normal capillary refill. Absent: tenderness, pedal edema, joint swelling, calf tenderness Back exam: Present: normal inspection, full ROM, tenderness, paraspinal tenderness, vertebral tenderness Neurological exam: Present: alert, oriented X3, CN II-XII intact <Suleman Lancaster - Last Filed: 01/18/24 06:21> Course <Woodrow Jasso - Last Filed: 01/17/24 13:34> Vital Signs 01/17/24 13:17 Temperature 97.8 F Pulse Rate 93 Respiratory 16 Rate Blood Pressure 138/77 O2 Sat by Pulse 99 Oximetry - Reevaluation(s) Reevaluation #1: 01/17/24 13:34 QN completed by myself Dr. Jasso (Woodrow Jasso) Medical Decision Making <Suleman Lancaster - Last Filed: 01/18/24 06:21> - Medical Decision Making Was pt. sent in by a medical professional or institution (, PA, STRATEGIC DEBRIEFING SPECIALIST, urgent care, hospital, or alf...) When possible be specific @ -No Did you speak to anyone other than the patient for history (EMS, parent, family, police, friend...)? What history was obtained from this source @ -No Did you review nursing and triage notes (agree or disagree)? Why? @ -I reviewed and agree with nursing and triage notes Were old charts reviewed (outside hosp., previous admission, EMS record, old EKG, old radiological studies, urgent care reports/EKG's, alf records)? Report findings @ -No old charts were reviewed Differential Diagnosis (chest pain, altered mental status, abdominal pain women, abdominal pain men, vaginal bleeding, weakness, fever, dyspnea, syncope, headache, dizziness, GI bleed, back pain, seizure, CVA, palpatations, mental health, musculoskeletal)? @ -Fall, back pain, lumbar fracture, pelvic fracture EKG interpreted by me (3pts min.). @ -None X-rays interpreted by me (1pt min.). @ -X lumbar spine no acute fracture or dislocation, there is degenerative changes noted, X-ray pelvic no acute fracture CT interpreted by me (1pt min.). @ -None done U/S interpreted by me (1pt. min.). @ -None done What testing was considered but not performed or refused? (CT, X-rays, U/S, labs)? Why? @ -None What meds were considered but not given or refused? Why? @ -None Did you discuss the management of the patient with other professionals ( professionals i.e. , PA, STRATEGIC DEBRIEFING SPECIALIST, lab, RT, psych nurse, mental health social worker, integration solution architect, teacher, landcare officer, lining caser)? Give summary @ -No Was smoking cessation discussed for >3mins.? @ -No Was critical care preformed (if so, how long)? @ -No Were there social determinants of health that impacted care today? How? (Homelessness, low income, unemployed, alcoholism, drug addiction, transportation, low edu. Level, literacy, decrease access to med. care, penitentiary, rehab)? @ -No Was there de-escalation of care discussed even if they declined (Discuss DNR or withdrawal of care, Hospice)? DNR status @ -No What co-morbidities impacted this encounter? (DM, HTN, Smoking, COPD, CAD, Cancer, CVA, ARF, Chemo, Hep., AIDS, mental health diagnosis, sleep apnea, morbid obesity)? @ -None Was patient admitted / discharged? Hospital course, mention meds given and route, prescriptions, significant lab abnormalities, going to OR and other pertinent info. @ -Patient presented after mechanical fall. Patient has no acute fractures or notable injuries patient is discharged in stable condition with analgesics return parameters mazin Undiagnosed new problem with uncertain prognosis? @ -No Drug Therapy requiring intensive monitoring for toxicity (Heparin, Nitro, Insulin, Cardizem)? @ -No Were any procedures done? @ -No Diagnosis/symptom? @ -Fall, back pain Acute, or Chronic, or Acute on Chronic? @ -Acute Uncomplicated (without systemic symptoms) or Complicated (systemic symptoms)? @ -Uncomplicated Side effects of treatment? @ -No Exacerbation, Progression, or Severe Exacerbation? @ -No Poses a threat to life or bodily function? How? (Chest pain, [place], [place], pneumonia, PE, COPD, DKA, ARF, appy, cholecystitis, CVA, Diverticulitis, Homicidal, Suicidal, threat to staff... and all critical care pts) @ -No (Suleman Lancaster) - Lab Data Lab Results 01/17/24 Range/Units 13:24 POC Glucose (mg/dL) 240 H (70-110) mg/dL POC Glu Belt Tender ID PaolaToyin Disposition <Woodrow Jasso - Last Filed: 01/17/24 13:34> Is patient prescribed a controlled substance at d/c from ED?: No Time of Disposition: 14:47 <Suleman Lancaster - Last Filed: 01/18/24 06:21> Clinical Impression: Fall, Back pain Disposition: HOME SELF-CARE Condition: Stable Instructions (If sedation given, give patient instructions): Back Pain (ED) Additional Instructions: Please return to the Emergency Department if symptoms worsen or any other concerns. Prescriptions: Cyclobenzaprine [Flexeril] 5 mg PO TID PRN #15 tablet PRN Reason: Muscle Spasm Referrals: Catherine Barry MD [Primary Care Provider] - 1-2 days
--- NOTE | 2024-01-17 14:22 | XR ---
EXAMINATION TYPE: XR pelvis AP view DATE OF EXAM: 01/17/2024 2:09 PM CLINICAL INDICATION:Male, 68 years old with history of fall; COMPARISON: None TECHNIQUE: The pelvis was examined in a single projection. FINDINGS: There is no evidence of fracture or dislocation. There is no soft tissue abnormality. No a bnormal calcifications are present. The spine appears intact. The hips appear intact. No significant degeneration. Hip arthroplasties. Hardware appears intact. IMPRESSION: No acute osseous pathology.
--- NOTE | 2024-01-17 14:23 | XR ---
EXAMINATION TYPE: XR lumbar spine 2 or 3V DATE OF EXAM: 01/17/2024 2:09 PM CLINICAL INDICATION:Male, 68 years old with history of fall; COMPARISON: None TECHNIQUE: XR lumbar spine 2 or 3V - Frontal, lateral and coned in L5-S1 lateral views of the spine. FINDINGS: No evidence of any acute osseous pathology. No evidence of loss of vertebral body height i s seen. There is normal alignment of the lumbar vertebral bodies. Mild scattered disc space narrowing . Multilevel marginal osteophyte formation throughout the visualized spine. There is facet joint arth ropathy throughout the spine. Scattered at least mild neural foraminal stenosis. Arthroplasty changes of the hips appear intact. Sclerosis of the arterial vasculature. IMPRESSION: 1. No acute fracture. 2. Moderate multilevel disc degeneration.
[2024-01-17] MEDS ORDERED: HYDROcodone/APAP 5-325MG 1 EACH TAB PO STA (14:45)
[2024-01-17] MEDS ORDERED: ACET/COD 300 MG/30 MG STARTER PACK 6 TAB BTL PO STA (14:45)
== END 2024-01-17 15:26 | disposition home or self-care (01) ==
LOC: EC 12:55
DX: M54.9 Dorsalgia, unspecified (principal); F12.90 Cannabis use, unspecified, uncomplicated; Z87.891 Personal history of nicotine dependence; W19.XXXA Unspecified fall, initial encounter
CPT/HCPCS: 36415; 72100; 72170; 99283

== ENCOUNTER 2024-02-20 21:33 | Emergency (ER) | payer MEDICARE, OTHER ==
[2024-02-20 23:25] VITALS: TEMP 97.9
[2024-02-21] MEDS: SODIUM CHLORIDE 0.9% 1,000 ML IV STA (00:18)
[2024-02-21] MEDS: MORPHINE SULFATE 2 MG/ML SYRINGE IVP STA (00:21)
[2024-02-21 00:47] LABS: Basophils % (A) 0 %; Eosinophils # (A) 0.2 k/uL (0-0.7); Eosinophils % (A) 3 %; HCT 39.7 % (39.0-53.0); Lymphocytes # (A) 1.8 k/uL (1.0-4.8); Lymphocytes % (A) 23 %; Macrocytosis Marked; Mean Platelet Volume 8.9; Monocytes # (A) 0.3 k/uL (0-1.0); Monocytes % (A) 4 %; Neutrophils # (A) 5.5 k/uL (1.3-7.7); Neutrophils % (A) 69 %; Platelet Count 294 k/uL (150-450); RBC 3.02 m/uL (4.30-5.90); RDW 14.5 % (11.5-15.5)
[2024-02-21 00:57] LABS: ALT 14 U/L (4-49); AST 22 U/L (17-59); African American GFR (CKD) >90 (>60 ml/min/1.73 sqM); Albumin 4.8 g/dL (3.5-5.0); Alkaline Phosphatase 63 U/L (38-126); Amylase 32 U/L (30-110); Anion Gap 9 mmol/L; Blood Urea Nitrogen 11 mg/dL (9-20); Calcium 9.3 mg/dL (8.4-10.2); Carbon Dioxide 29 mmol/L (22-30); Chloride 99 mmol/L (98-107); Glucose 265 mg/dL (74-99); Lipase 25 U/L (23-300); Non-African American GFR(CKD) >90 (>60 ml/min/1.73 sqM); Potassium 4.1 mmol/L (3.5-5.1); Sodium 137 mmol/L (137-145); Total Bilirubin 0.9 mg/dL (0.2-1.3); Total Protein 7.4 g/dL (6.3-8.2)
[2024-02-21 01:01] LABS: HGB 13.1 gm/dL (13.0-17.5); MCH 43.1 pg (25.0-35.0)
[2024-02-21 01:02] LABS: MCHC 32.9 g/dL (31.0-37.0); MCV 131.8 fL (80.0-100.0)
[2024-02-21 01:14] LABS: Appearance,Urine Clear (Clear); Bilirubin,Urine Negative (Negative); Blood,Urine Negative (Negative); Color,Urine Light Yellow; Glucose,Urine (UA) 4+ (Negative); Ketones,Urine Negative (Negative); Leukocyte Esterase,Urine Large (Negative); Mucus,Urine Rare /hpf; Nitrite,Urine Negative (Negative); PH, Urine 6.5 (5.0-8.0); Protein,Urine Negative (Negative); RBC,Urine 2 /hpf (0-5); Specific Gravity,Urine 1.019 (1.001-1.035); Squamous Epithelial Cell,Urine <1 /hpf (0-4); Urobilinogen,Urine <2.0 mg/dL (<2.0); WBC,Urine 4 /hpf (0-5)
[2024-02-21 01:19] VITALS: RESP 16
[2024-02-21] MEDS: HYDROcodone/APAP 7.5-325MG 1 EACH TAB PO ONE (02:49)
--- NOTE | 2024-02-21 03:05 | CT ---
EXAM: CT Abdomen and Pelvis With Intravenous Contrast CLINICAL HISTORY: ITS.REASON CT Reason: LLQ abdominal pain TECHNIQUE: Axial computed tomography images of the abdomen and pelvis with intravenous contrast. CTDI is 15.1 mGy and DLP is 758 mGy-cm. This CT exam was performed using one or more of the following dose reduction techniques: automated exposure control, adjustment of the mA and/or kV according to patient size, and/or use of iterative reconstruction technique. COMPARISON: No relevant prior studies available. FINDINGS: Lung bases: Unremarkable. No mass. No consolidation. ABDOMEN: Liver: Hepatic steatosis. Gallbladder and bile ducts: Contracted gallbladder. No calcified stones. No ductal dilation. Pancreas: Unremarkable. No mass. No ductal dilation. Spleen: Unremarkable. No splenomegaly. Adrenals: Unremarkable. No mass. Kidneys and ureters: Unremarkable. No hydronephrosis or delayed nephrogram. Stomach and bowel: Mild wall thickening of the sigmoid colon, likely from under distention. Correlate for mild colitis. Diverticulosis, without acute diverticulitis. No small bowel obstruction. No free intraperitoneal air. PELVIS: Appendix: No findings to suggest acute appendicitis. Bladder: Unremarkable. Normal urinary bladder. Reproductive: Unremarkable as visualized. ABDOMEN and PELVIS: Intraperitoneal space: Unremarkable. No free air. No significant fluid collection. Bones/joints: Degenerative changes of the spine. Bilateral hip arthroplasties. No acute fracture. No dislocation. Soft tissues: Unremarkable. Vasculature: Atherosclerotic changes of the aorta. No abdominal aortic aneurysm. Lymph nodes: Unremarkable. No enlarged lymph nodes. IMPRESSION: 1. Mild wall thickening of the sigmoid colon, likely from under distention. Correlate for mild colitis. 2. Diverticulosis, without acute diverticulitis. No small bowel obstruction. No free intraperitoneal air.
--- NOTE | 2024-02-21 03:21 | ED ---
Male Urogenital HPI - General Chief complaint: Urogenital Stated complaint: ABD Pain Time Seen by Provider: 02/20/24 23:32 Source: patient Mode of arrival: ambulatory Limitations: no limitations - History of Present Illness Initial comments: 68-year-old male presenting with chief complaint of back and abdominal pain. Patient has history of chronic lower back pain. However he states that tonight he was having left-sided flank pain as well as some left lower quadrant pain. He denies any nausea vomiting or diarrhea. No fevers. No dysuria or hematuria. No chest pain or difficulty breathing. No injury or trauma. No loss of bowel or bladder control or saddle paresthesia. - Related Data Home Medications Medication Instructions Recorded Confirmed Insulin Detemir (Levemir) [Levemir] 40 unit SQ HS 02/03/14 02/05/23 metFORMIN HCL [Glucophage] 500 mg PO BID 02/03/14 02/05/23 lisinopriL [Prinivil] 20 mg PO DAILY 08/05/14 02/05/23 INSULIN ASPART (NovoLOG) [NovoLOG 30 unit SQ AC-TID 04/15/20 02/05/23 (formulary)] Ergocalciferol (Vitamin D2) 1,250 mcg PO WE 02/05/23 02/05/23 [Drisdol (50,000 Iu)] HYDROcodone/APAP 10-325MG [[place] 0.5 tab PO Q4HR 02/05/23 02/05/23 10-325] Previous Rx's Medication Instructions Recorded Aspirin EC [Ecotrin Low Dose] 81 mg PO DAILY #30 tab 02/08/23 Atorvastatin [Lipitor] 80 mg PO DAILY #90 tab 02/08/23 Metoprolol Tartrate [Lopressor] 25 mg PO BID #180 tab 02/08/23 Nitroglycerin Sl Tabs [Nitrostat] 0.4 mg SUBLINGUAL Q5M PRN #25 tab 02/08/23 Prasugrel [Effient] 10 mg PO DAILY #90 tab 02/08/23 Cyclobenzaprine [Flexeril] 5 mg PO TID PRN #15 tablet 01/17/24 Amoxic-Pot Clav 875-125Mg 1 tab PO Q12HR 7 Days #14 tab 02/21/24 [Augmentin 875-125] Allergies Allergy/AdvReac Type Severity Reaction Status Date / Time No Known Allergies Allergy Verified 01/17/24 13:22 Review of Systems ROS Statement: Those systems with pertinent positive or pertinent negative responses have been documented in the HPI. ROS Other: All systems not noted in ROS Statement are negative. Past Medical History Past Medical History: Asthma, COPD, CVA/TIA, Diabetes Mellitus, Hearing Disorder / Deafness, Hyperlipidemia, Hypertension, Osteoarthritis (OA), Skin Disorder Additional Past Medical History / Comment(s): IDDM type II, arthritis in multiple joints, psoriasis, vitiligo, [employer], hx of feeling lightheaded and falls., ? Hx of CVA- states left arm weak-unable to lift or reach far-unable to grasp with left hand , weakness left leg and states left foot drops down and catches on everything., states fall after Left Hip surgery with fx., uses wheelchair and cane., lower back and left hip pain, left arm fracture. History of Any Multi-Drug Resistant Organisms: None Reported Past Surgical History: Joint Replacement Additional Past Surgical History / Comment(s): Bilateral hip replacements Past Anesthesia/Blood Transfusion Reactions: No Reported Reaction Additional Past Anesthesia/Blood Transfusion Reaction / Comment(s): pt states was unable to receive spinal tap with last surgery d/t arthritis in back, received general anesthetic" Past Psychological History: Depression Smoking Status: Former smoker Past Alcohol Use History: None Reported Past Drug Use History: Marijuana - Past Family History Mother Family Medical History: Eye Disorder, Hearing Disorder / Deafness Additional Family Medical History / Comment(s): Father is 90yrs old. He has glaucoma and is [place]. General Exam Limitations: no limitations General appearance: alert, in no apparent distress Head exam: Present: atraumatic, normocephalic Eye exam: Present: normal appearance, EOMI Neck exam: Present: normal inspection. Absent: meningismus Respiratory exam: Present: normal lung sounds bilaterally. Absent: respiratory distress, wheezes, rales, rhonchi, stridor Cardiovascular Exam: Present: regular rate, normal rhythm, normal heart sounds. Absent: systolic murmur, diastolic murmur, rubs, gallop, clicks GI/Abdominal exam: Present: soft, tenderness (Some tenderness in the left lower quadrant). Absent: distended, guarding, rebound, rigid Back exam: Present: tenderness (Left-sided tenderness) Neurological exam: Present: alert, oriented X3 Psychiatric exam: Present: normal affect, normal mood Skin exam: Present: warm, dry Course Vital Signs 02/20/24 02/20/24 02/21/24 21:52 23:23 01:18 Temperature 98.2 F 97.9 F Pulse Rate 90 78 98 Respiratory 20 18 16 Rate Blood Pressure 115/76 133/63 151/89 O2 Sat by Pulse 99 95 98 Oximetry 02/21/24 02/21/24 02:47 03:47 Temperature Pulse Rate 68 91 Respiratory 16 16 Rate Blood Pressure 133/80 150/90 O2 Sat by Pulse 99 99 Oximetry Medical Decision Making - Medical Decision Making Was pt. sent in by a medical professional or institution (, PA, PUBLIC WORKS LABORER, urgent care, hospital, or fdc...) When possible be specific @ -No Did you speak to anyone other than the patient for history (EMS, parent, family, police, friend...)? What history was obtained from this source @ -No Did you review nursing and triage notes (agree or disagree)? Why? @ -I reviewed and agree with nursing and triage notes Were old charts reviewed (outside hosp., previous admission, EMS record, old EKG, old radiological studies, urgent care reports/EKG's, fdc records)? Report findings @ -No old charts were reviewed Differential Diagnosis (chest pain, altered mental status, abdominal pain women, abdominal pain men, vaginal bleeding, weakness, fever, dyspnea, syncope, headache, dizziness, GI bleed, back pain, seizure, CVA, palpatations, mental health, musculoskeletal)? @ -MDM Differential Abdominal Pain Men: Appendicitis, cholecystitis, diverticulosis, ischemic bowel, pancreatitis, hepatitis, UTI, gastroenteritis, AAA, incarcerated hernia, bowel obstruction, constipation, inflammatory bowel, hepatitis, peptic ulcer disease, splenic infarction, perforated viscus, testicular torsion... This is not meant to be an all-inclusive list EKG interpreted by me (3pts min.). @ -EKG shows sinus rhythm ventricular rate 93. SC interval 160. QRS 77. QT 345. QTc 396. X-rays interpreted by me (1pt min.). @ -None done CT interpreted by me (1pt min.). @ -CT shows mild wall thickening of the sigmoid colon, likely from underdistention. Correlate for mild colitis. Diverticulosis without acute diverticulitis. No small bowel obstruction. No free intraperitoneal air. U/S interpreted by me (1pt. min.). @ -None done What testing was considered but not performed or refused? (CT, X-rays, U/S, labs)? Why? @ -None What meds were considered but not given or refused? Why? @ -None Did you discuss the management of the patient with other professionals (milagros palomino i.e. , PA, PUBLIC WORKS LABORER, lab, RT, psych nurse, criminal justice social worker, sql developer, teacher, juvenile correctional officer, patient case coordinator)? Give summary @ -No Was smoking cessation discussed for >3mins.? @ -No Was critical care preformed (if so, how long)? @ -No Were there social determinants of health that impacted care today? How? (Homelessness, low income, unemployed, alcoholism, drug addiction, transportation, low edu. Level, literacy, decrease access to med. care, longterm, rehab)? @ -No Was there de-escalation of care discussed even if they declined (Discuss DNR or withdrawal of care, Hospice)? DNR status @ -No What co-morbidities impacted this encounter? (DM, HTN, Smoking, COPD, CAD, Cancer, CVA, ARF, Chemo, Hep., AIDS, mental health diagnosis, sleep apnea, morbid obesity)? @ -None Was patient admitted / discharged? Hospital course, mention meds given and route, prescriptions, significant lab abnormalities, going to OR and other pertinent info. @ -68-year-old male presenting with chief complaint of left-sided flank pain and left lower quadrant pain. History and physical exam are conducted. No leukocytosis or anemia. Lactic acid 2.1, patient is receiving IV fluids. Urine shows 4+ glucose as well as large leukocytes, however there are [address] shows evidence of possible colitis. Patient is educated on today's findings. He will be treated with Augmentin. Discharged home. Follow-up with PCP. Report back to ER with any new or worsening symptoms. Discussed return parameters and answered all questions. Patient conveyed verbal understanding and agreed to the plan. I discussed this case in detail with my attending Dr. Brooks Undiagnosed new problem with uncertain prognosis? @ -No Drug Therapy requiring intensive monitoring for toxicity (Heparin, Nitro, Insulin, Cardizem)? @ -No Were any procedures done? @ -No Diagnosis/symptom? @ -Colitis Acute, or Chronic, or Acute on Chronic? @ -Acute Uncomplicated (without systemic symptoms) or Complicated (systemic symptoms)? @ -Uncomplicated Side effects of treatment? @ -No Exacerbation, Progression, or Severe Exacerbation? @ -No Poses a threat to life or bodily function? How? (Chest pain, [place], [place], pneumonia, PE, COPD, DKA, ARF, appy, cholecystitis, CVA, Diverticulitis, Homicidal, Suicidal, threat to staff... and all critical care pts) @ -Unlikely - Lab Data Result diagrams: 02/21/24 00:09 02/21/24 00:09 Lab Results 02/21/24 02/21/24 02/21/24 Range/Units 00:09 00:09 00:09 WBC 8.0 (3.8-10.6) k/uL RBC 3.02 L (4.30-5.90) m/uL Hgb 13.1 (13.0-17.5) gm/dL Hct 39.7 (39.0-53.0) % MCV 131.8 H D (80.0-100.0) fL MCH 43.1 H (25.0-35.0) pg MCHC 32.9 (31.0-37.0) g/dL RDW 14.5 (11.5-15.5) % Plt Count 294 (150-450) k/uL MPV 8.9 Neutrophils % 69 % Lymphocytes % 23 % Monocytes % 4 % Eosinophils % 3 % Basophils % 0 % Neutrophils # 5.5 (1.3-7.7) k/uL Lymphocytes # 1.8 (1.0-4.8) k/uL Monocytes # 0.3 (0-1.0) k/uL Eosinophils # 0.2 (0-0.7) k/uL Basophils # 0.0 (0-0.2) k/uL Macrocytosis Marked A Sodium 137 (137-145) mmol/L Potassium 4.1 (3.5-5.1) mmol/L Chloride 99 (98-107) mmol/L Carbon Dioxide 29 (22-30) mmol/L Anion Gap 9 mmol/L BUN 11 (9-20) mg/dL Creatinine 0.44 L (0.66-1.25) mg/dL Est GFR (CKD-EPI)AfAm >90 (>60 ml/min/1.73 sqM) Est GFR (CKD-EPI)NonAf >90 (>60 ml/min/1.73 sqM) Glucose 265 H (74-99) mg/dL Lactic Ac Sepsis Rflx Plasma Lactic Acid Matty (0.7-2.0) mmol/L Calcium 9.3 (8.4-10.2) mg/dL Total Bilirubin 0.9 (0.2-1.3) mg/dL AST 22 (17-59) U/L ALT 14 (4-49) U/L Alkaline Phosphatase 63 (38-126) U/L Total Protein 7.4 (6.3-8.2) g/dL Albumin 4.8 (3.5-5.0) g/dL Amylase 32 (30-110) U/L Lipase 25 (23-300) U/L Urine Color Light Yellow Urine Appearance Clear (Clear) Urine pH 6.5 (5.0-8.0) Ur Specific [place] 1.019 (1.001-1.035) Urine Protein Negative (Negative) Urine Glucose (UA) 4+ H (Negative) Urine Ketones Negative (Negative) Urine Blood Negative (Negative) Urine Nitrite Negative (Negative) Urine Bilirubin Negative (Negative) Urine Urobilinogen <2.0 (<2.0) mg/dL Ur Leukocyte Esterase Large H (Negative) Urine RBC 2 (0-5) /hpf Urine WBC 4 (0-5) /hpf Ur Squamous Epith Cells <1 (0-4) /hpf Urine Mucus Rare H (None) /hpf 02/21/24 02/21/24 Range/Units 00:09 01:27 WBC (3.8-10.6) k/uL RBC (4.30-5.90) m/uL Hgb (13.0-17.5) gm/dL Hct (39.0-53.0) % MCV (80.0-100.0) fL MCH (25.0-35.0) pg MCHC (31.0-37.0) g/dL RDW (11.5-15.5) % Plt Count (150-450) k/uL MPV Neutrophils % % Lymphocytes % % Monocytes % % Eosinophils % % Basophils % % Neutrophils # (1.3-7.7) k/uL Lymphocytes # (1.0-4.8) k/uL Monocytes # (0-1.0) k/uL Eosinophils # (0-0.7) k/uL Basophils # (0-0.2) k/uL Macrocytosis Sodium (137-145) mmol/L Potassium (3.5-5.1) mmol/L Chloride (98-107) mmol/L Carbon Dioxide (22-30) mmol/L Anion Gap mmol/L BUN (9-20) mg/dL Creatinine (0.66-1.25) mg/dL Est GFR (CKD-EPI)AfAm (>60 ml/min/1.73 sqM) Est GFR (CKD-EPI)NonAf (>60 ml/min/1.73 sqM) Glucose (74-99) mg/dL Lactic Ac Sepsis Rflx Y Plasma Lactic Acid Matty 2.1 H* (0.7-2.0) mmol/L Calcium (8.4-10.2) mg/dL Total Bilirubin (0.2-1.3) mg/dL AST (17-59) U/L ALT (4-49) U/L Alkaline Phosphatase (38-126) U/L Total Protein (6.3-8.2) g/dL Albumin (3.5-5.0) g/dL Amylase (30-110) U/L Lipase (23-300) U/L Urine Color Urine Appearance (Clear) Urine pH (5.0-8.0) Ur Specific [place] (1.001-1.035) Urine Protein (Negative) Urine Glucose (UA) (Negative) Urine Ketones (Negative) Urine Blood (Negative) Urine Nitrite (Negative) Urine Bilirubin (Negative) Urine Urobilinogen (<2.0) mg/dL Ur Leukocyte Esterase (Negative) Urine RBC (0-5) /hpf Urine WBC (0-5) /hpf Ur Squamous Epith Cells (0-4) /hpf Urine Mucus (None) /hpf Disposition Clinical Impression: Colitis Disposition: HOME SELF-CARE Condition: Good Instructions (If sedation given, give patient instructions): Colitis (ED) Additional Instructions: Follow-up with your PCP. Report back to ER with any new or worsening symptoms. Take medication as prescribed. Prescriptions: Amoxic-Pot Clav 875-125Mg [Augmentin 875-125] 1 tab PO Q12HR 7 Days #14 tab Is patient prescribed a controlled substance at d/c from ED?: No Referrals: Catherine Barry MD [Primary Care Provider] - 1-2 days Time of Disposition: 03:21
[2024-02-21] MEDS: MORPHINE SULFATE 4 MG/ML SYRINGE IVP STA (03:46)
[2024-02-21] MEDS: AMOXIC-POT CLAV 875-125MG 1 EACH TAB PO STA (03:47)
[2024-02-21 03:48] VITALS: BP 150/90; PULSE 91
== END 2024-02-21 03:57 | disposition home or self-care (01) ==
LOC: EC 21:33
DX: K52.9 Noninfective gastroenteritis and colitis, unspecified (principal); K57.90 Diverticulosis of intestine, part unspecified, without perforation or abscess without bleeding; Z87.891 Personal history of nicotine dependence; Z86.73 Personal history of transient ischemic attack (TIA), and cerebral infarction without residual deficits
CPT/HCPCS: 36415; 80053; 82150; 83605; 83690; 85025; 81001; 74177; 99285; 96374; 96376; 96361 ×2; J2270 ×2; Q9967

== ENCOUNTER 2024-04-18 16:59 | Observation (INO) | payer MEDICARE, OTHER ==
--- NOTE | 2024-04-18 17:09 | ED ---
General Adult HPI - General Source: patient, RN notes reviewed Mode of arrival: wheelchair Limitations: no limitations <Yesenia Qiu - Last Filed: 04/18/24 17:08> - General Source: patient, RN notes reviewed Mode of arrival: wheelchair Limitations: no limitations <Johanny Mike - Last Filed: 04/18/24 23:17> - General Chief complaint: Weakness Stated complaint: Extreme weight loss Time Seen by Provider: 04/18/24 17:08 - History of Present Illness Initial comments: 68-year-old male presented to the ER with a chief complaint of weight loss. Patient sent by for admission. Patient reports in the past 5 to 6 months he is lost approximately 40 pounds. He states he has been feeling very weak. He does report pain in his back which is chronic in nature. Denies any fevers or chills. (Yesenia Qiu) This is a 68-year-old male who presents to the emergency department for weight loss and weakness. Over the last 5 to 6 months he has lost 40 pounds. States t hat he has not felt hungry and is not eating as much as usual. He is also feeling very weak. Denies any new pains, coughing, congestion, nausea, or vomiting. His PCP advised he come to the emergency department to look for potential causes of his symptoms such as infection. Has not measured any f cristiane, but states that when he wakes up each morning he is drenched in sweat. (Johanny Mike) - Related Data Home Medications Medication Instructions Recorded Confirmed HYDROcodone/APAP 10-325MG [[place] 1 tab PO TID PRN 02/05/23 04/18/24 10-325] Allergies Allergy/AdvReac Type Severity Reaction Status Date / Time No Known Allergies Allergy Verified 04/18/24 19:03 Review of Systems ROS Other: All systems not noted in ROS Statement are negative. <Yesenia Qiu - Last Filed: 04/18/24 17:08> ROS Other: All systems not noted in ROS Statement are negative. <Johanny Mike - Last Filed: 04/18/24 23:17> ROS Statement: Those systems with pertinent positive or pertinent negative responses have been documented in the HPI. Past Medical History Past Medical History: Asthma, COPD, CVA/TIA, Diabetes Mellitus, Hearing Disorder / Deafness, Hyperlipidemia, Hypertension, Osteoarthritis (OA), Skin Disorder Additional Past Medical History / Comment(s): IDDM type II, arthritis in multiple joints, psoriasis, vitiligo, [place], hx of feeling lightheaded and falls., ? Hx of CVA- states left arm weak-unable to lift or reach far-unable to grasp with left hand , weakness left leg and states left foot drops down and catches o n everything., states fall after Left Hip surgery with fx., uses wheelchair and cane., lower back and left hip pain, left arm fracture. History of Any Multi-Drug Resistant Organisms: None Reported Past Surgical History: Joint Replacement Additional Past Surgical History / Comment(s): Bilateral hip replacements Past Anesthesia/Blood Transfusion Reactions: No Reported Reaction Additional Past Anesthesia/Blood Transfusion Reaction / Comment(s): pt states was unable to receive spinal tap with last surgery d/t arthritis in back, received general anesthetic" Past Psychological History: Depression Smoking Status: Former smoker Past Alcohol Use History: None Reported Past Drug Use History: Marijuana - Past Family History Mother Family Medical History: Eye Disorder, Hearing Disorder / Deafness Additional Family Medical History / Comment(s): Father is 90yrs old. He has glaucoma and is [place]. <Yesenia Qiu - Last Filed: 04/18/24 17:08> General Exam <Yesenia Qiu - Last Filed: 04/18/24 17:08> Limitations: no limitations General appearance: alert, in no apparent distress Head exam: Present: atraumatic, normocephalic, normal inspection Respiratory exam: Present: normal lung sounds bilaterally. Absent: respiratory distress, wheezes, rales, rhonchi, stridor Cardiovascular Exam: Present: regular rate, normal rhythm, normal heart sounds. Absent: systolic murmur, diastolic murmur, rubs, gallop, clicks GI/Abdominal exam: Present: soft, normal bowel sounds. Absent: distended, tende rness, guarding, rebound, rigid Neurological exam: Present: alert, oriented X3, CN II-XII intact Psychiatric exam: Present: normal affect, normal mood Skin exam: Present: warm, dry, intact, normal color. Absent: rash <Johanny Mike - Last Filed: 04/18/24 23:17> - General Exam Comments Initial Comments: Visual Physical Exam Vital signs reviewed General: Ill-appearing nontoxic, no acute distress. Head: Normocephalic, atraumatic Eyes: PERRLA, EOMI ENT: Airway patent Chest: Nonlabored breathing Skin: No visual rash, pale appearing Neuro: Alert and oriented 3 Musculoskeletal: No gross abnormalities (Yesenia Qiu) Course Vital Signs 04/18/24 04/18/24 04/18/24 17:39 19:13 20:07 Temperature 98 F Pulse Rate 82 84 81 Respiratory 20 18 18 Rate Blood Pressure 98/72 131/82 126/91 O2 Sat by Pulse 99 96 95 Oximetry 04/18/24 04/18/24 21:17 23:03 Temperature Pulse Rate 97 89 Respiratory 18 16 Rate Blood Pressure 152/88 133/87 O2 Sat by Pulse 96 97 Oximetry Medical Decision Making <Yesenia Qiu - Last Filed: 04/18/24 17:08> - Lab Data Result diagrams: 04/18/24 18:34 04/18/24 18:34 - Radiology Data Radiology results: report reviewed, image reviewed <Johanny Mike - Last Filed: 04/18/24 23:17> - Medical Decision Making I performed the quick note portion of this chart. Electronically signed by Yesenia Qiu PA-C (Yesenia Qiu) This is a 68-year-old male who presents to the emergency department for weakness and weight loss. Was pt. sent in by a medical professional or institution? @ -No Did you speak to anyone other than the patient for history? @ -No Did you review nursing and triage notes? @ -Yes, and I agree, it is accurate with regards to the patient's symptoms. Were old charts reviewed? @ -No Differential Diagnosis? @ -Differential Weakness: Hypoglycemia, shock, sepsis, hyponatremia, anemia, infection, [place], ETOH, adverse medicine reaction, overdose, stroke, this is not meant to be an all-inclusive list. EKG interpreted by me (3pts min.)? @ -EKG interpreted by me demonstrating the following: Sinus rhythm. Ventricular rate 77 bpm, [place] interval 143 ms, QRS duration 82 ms, QTc 400 ms. X-rays interpreted by me (1pt min.)? @ -Chest x-ray obtained, my interpretation identifies no localized consolidations or infiltrates. CT interpreted by me (1pt min.)? @ -Not obtained U/S interpreted by me (1pt. min.)? @ -Not obtained What testing was considered but not performed? (CT, X-rays, U/S, labs)? Why? @ -None What meds were considered but not given? Why? @ -None Did you discuss the management of the patient with other professionals? @ -Yes, Dr. Barry, who requests admission with general surgery consult for colonoscopy and EGD Did you reconcile home meds? @ -Yes Was smoking cessation discussed for >3mins.? @ -No Was critical care preformed (if so, how long)? @ -No Were there social determinants of health that impacted care today? How? (Homelessness, low income, unemployed, alcoholism, drug addiction, transportation, low edu. Level, literacy, decrease access to med. care, shelter, rehab)? @ -No Was there de-escalation of care discussed even if they declined? (Discuss DNR or withdrawal of care, Hospice)? @ -No What co-morbidities impacted this encounter? (DM, HTN, Smoking, COPD, CAD, Cancer, CVA, Hep., AIDS, mental health diagnosis, sleep apnea, morbid obesity)? @ -DM, HLD, HTN Was patient admitted / discharged? @ -Admitted. Lab work demonstrates a hemoglobin of 10. This has decreased when compared with 2 months ago, however it has been lower before. Blood sugar elevated at 216. TSH was slightly low at 0.460, however T4 was within normal limits. Urinalysis negative for signs of infection. Chest x-ray reveals no acute process. The cause of his symptoms is not clear at this point. Case discussed with the patient's PCP, who requested admission for further evaluation of his weight loss and weakness with consult for general surgery regarding a colonoscopy/EGD. Consult was placed. Case discussed with ED attending, Dr. Henley. Undiagnosed new problem with uncertain prognosis? @ -None Drug Therapy requiring intensive monitoring for toxicity (Heparin, Nitro, Insulin, Cardizem)? @ -None Were any procedures done? @ -None Diagnosis/symptom? @ -Weight loss, weakness Acute, or Chronic, or Acute on Chronic? @ -Chronic Uncomplicated (without systemic symptoms) or Complicated (systemic symptoms)? @ -Complicated Side effects of treatment? @ -None Exacerbation, Progression, or Severe Exacerbation] @ -Progression Poses a threat to life or bodily function? @ -Yes, depending on the cause, this can become life-threatening if symptoms continue to progress. (Johanny Mike) - Lab Data Lab Results 04/18/24 04/18/24 04/18/24 Range/Units 18:34 18:34 18:34 WBC 4.7 (3.8-10.6) k/uL RBC 2.27 L (4.30-5.90) m/uL Hgb 10.0 L D (13.0-17.5) gm/dL Hct 29.7 L (39.0-53.0) % MCV 130.7 H (80.0-100.0) fL MCH 44.2 H (25.0-35.0) pg MCHC 33.8 (31.0-37.0) g/dL RDW 17.6 H (11.5-15.5) % Plt Count 242 (150-450) k/uL MPV 8.4 Neutrophils % 69 % Lymphocytes % 22 % Monocytes % 5 % Eosinophils % 2 % Basophils % 0 % Neutrophils # 3.3 (1.3-7.7) k/uL Lymphocytes # 1.0 (1.0-4.8) k/uL Monocytes # 0.2 (0-1.0) k/uL Eosinophils # 0.1 (0-0.7) k/uL Basophils # 0.0 (0-0.2) k/uL Manual Slide Review Performed Anisocytosis Slight Macrocytosis Marked A Fragmented RBCs Present Sodium 134 L (137-145) mmol/L Potassium 4.2 (3.5-5.1) mmol/L Chloride 102 (98-107) mmol/L Carbon Dioxide 28 (22-30) mmol/L Anion Gap 4 mmol/L BUN 10 (9-20) mg/dL Creatinine 0.43 L (0.66-1.25) mg/dL Est GFR (CKD-EPI)AfAm >90 (>60 ml/min/1.73 sqM) Est GFR (CKD-EPI)NonAf >90 (>60 ml/min/1.73 sqM) Glucose 216 H (74-99) mg/dL Plasma Lactic Acid Matty 1.2 (0.7-2.0) mmol/L Calcium 8.8 (8.4-10.2) mg/dL Magnesium 1.9 (1.6-2.3) mg/dL Total Bilirubin 1.2 (0.2-1.3) mg/dL AST 27 (17-59) U/L ALT 12 (4-49) U/L Alkaline Phosphatase 44 (38-126) U/L Total Protein 6.2 L (6.3-8.2) g/dL Albumin 4.0 (3.5-5.0) g/dL TSH 0.460 L (0.465-4.680) mIU/L Free T4 1.05 (0.78-2.19) ng/dL Urine Color Urine Appearance (Clear) Urine pH (5.0-8.0) Ur Specific [place] (1.001-1.035) Urine Protein (Negative) Urine Glucose (UA) (Negative) Urine Ketones (Negative) Urine Blood (Negative) Urine Nitrite (Negative) Urine Bilirubin (Negative) Urine Urobilinogen (<2.0) mg/dL Ur Leukocyte Esterase (Negative) 04/18/24 Range/Units 19:01 WBC (3.8-10.6) k/uL RBC (4.30-5.90) m/uL Hgb (13.0-17.5) gm/dL Hct (39.0-53.0) % MCV (80.0-100.0) fL MCH (25.0-35.0) pg MCHC (31.0-37.0) g/dL RDW (11.5-15.5) % Plt Count (150-450) k/uL MPV Neutrophils % % Lymphocytes % % Monocytes % % Eosinophils % % Basophils % % Neutrophils # (1.3-7.7) k/uL Lymphocytes # (1.0-4.8) k/uL Monocytes # (0-1.0) k/uL Eosinophils # (0-0.7) k/uL Basophils # (0-0.2) k/uL Manual Slide Review Anisocytosis Macrocytosis Fragmented RBCs Sodium (137-145) mmol/L Potassium (3.5-5.1) mmol/L Chloride (98-107) mmol/L Carbon Dioxide (22-30) mmol/L Anion Gap mmol/L BUN (9-20) mg/dL Creatinine (0.66-1.25) mg/dL Est GFR (CKD-EPI)AfAm (>60 ml/min/1.73 sqM) Est GFR (CKD-EPI)NonAf (>60 ml/min/1.73 sqM) Glucose (74-99) mg/dL Plasma Lactic Acid Matty (0.7-2.0) mmol/L Calcium (8.4-10.2) mg/dL Magnesium (1.6-2.3) mg/dL Total Bilirubin (0.2-1.3) mg/dL AST (17-59) U/L ALT (4-49) U/L Alkaline Phosphatase (38-126) U/L Total Protein (6.3-8.2) g/dL Albumin (3.5-5.0) g/dL TSH (0.465-4.680) mIU/L Free T4 (0.78-2.19) ng/dL Urine Color Yellow Urine Appearance Clear (Clear) Urine pH 5.5 (5.0-8.0) Ur Specific [place] 1.018 (1.001-1.035) Urine Protein Negative (Negative) Urine Glucose (UA) 1+ H (Negative) Urine Ketones Negative (Negative) Urine Blood Negative (Negative) Urine Nitrite Negative (Negative) Urine Bilirubin Negative (Negative) Urine Urobilinogen <2.0 (<2.0) mg/dL Ur Leukocyte Esterase Negative (Negative) Disposition <Yesenia Qiu - Last Filed: 04/18/24 17:08> <Johanny Mike - Last Filed: 04/18/24 23:17> Clinical Impression: Weakness, Weight loss Disposition: ADMITTED IP TO THIS HOSP
--- NOTE | 2024-04-18 18:28 | XR ---
EXAMINATION TYPE: XR chest 2V DATE OF EXAM: 04/18/2024 6:07 PM CLINICAL INDICATION: Male, 68 years old with history of Weakness; [facility] COMPARISON: Chest radiographs from 01/03/2024. TECHNIQUE: XR chest 2V Frontal view of the chest. FINDINGS: Lungs/Pleura: There is no evidence of pleural effusion, focal consolidation, or pneumothorax. Pulmonary vascularity: Unremarkable. Heart/mediastinum: Cardiomediastinal silhouette is unremarkable. Musculoskeletal: No acute osseous pathology. Degeneration changes of the shoulders with calcification near the insertion of the supraspinatus. Other findings: None IMPRESSION: No acute cardiopulmonary disease/process.
[2024-04-18 18:55] LABS: Anisocytosis Slight; Basophils % (A) 0 %; Eosinophils # (A) 0.1 k/uL (0-0.7); Eosinophils % (A) 2 %; HCT 29.7 % (39.0-53.0); Lymphocytes % (A) 22 %; MCHC 33.8 g/dL (31.0-37.0); Macrocytosis Marked; Mean Platelet Volume 8.4; Monocytes # (A) 0.2 k/uL (0-1.0); Monocytes % (A) 5 %; Neutrophils # (A) 3.3 k/uL (1.3-7.7); Neutrophils % (A) 69 %; Platelet Count 242 k/uL (150-450); RBC 2.27 m/uL (4.30-5.90); RDW 17.6 % (11.5-15.5); WBC 4.7 k/uL (3.8-10.6)
[2024-04-18] MEDS: SODIUM CHLORIDE 0.9% 1,000 ML IV STA (19:03)
[2024-04-18 19:09] LABS: ALT 12 U/L (4-49); AST 27 U/L (17-59); African American GFR (CKD) >90 (>60 ml/min/1.73 sqM); Alkaline Phosphatase 44 U/L (38-126); Anion Gap 4 mmol/L; Blood Urea Nitrogen 10 mg/dL (9-20); Calcium 8.8 mg/dL (8.4-10.2); Carbon Dioxide 28 mmol/L (22-30); Chloride 102 mmol/L (98-107); Glucose 216 mg/dL (74-99); MCH 44.2 pg (25.0-35.0); MCV 130.7 fL (80.0-100.0); Magnesium 1.9 mg/dL (1.6-2.3); Non-African American GFR(CKD) >90 (>60 ml/min/1.73 sqM); Potassium 4.2 mmol/L (3.5-5.1); Sodium 134 mmol/L (137-145); Total Bilirubin 1.2 mg/dL (0.2-1.3); Total Protein 6.2 g/dL (6.3-8.2)
[2024-04-18 19:22] LABS: Appearance,Urine Clear (Clear); Bilirubin,Urine Negative (Negative); Blood,Urine Negative (Negative); Color,Urine Yellow; Glucose,Urine (UA) 1+ (Negative); Ketones,Urine Negative (Negative); Leukocyte Esterase,Urine Negative (Negative); Nitrite,Urine Negative (Negative); PH, Urine 5.5 (5.0-8.0); Protein,Urine Negative (Negative); Specific Gravity,Urine 1.018 (1.001-1.035); Urobilinogen,Urine <2.0 mg/dL (<2.0)
[2024-04-18 19:25] LABS: RBC Fragments Present
[2024-04-18] MEDS: HYDROcodone/APAP 10-325MG 1 EACH TAB PO ONE (20:05)
[2024-04-18 20:22] LABS: T4, Free (Free Thyroxine) 1.05 ng/dL (0.78-2.19)
[2024-04-18] MEDS ORDERED: ONDANSETRON 4 MG/2 ML VIAL IVP PRN (21:29)
[2024-04-18] MEDS ORDERED: ACETAMINOPHEN TAB 325 MG TAB PO PRN (21:29)
[2024-04-18] MEDS ORDERED: HYDROcodone/APAP 5-325MG 1 EACH TAB PO PRN (21:29)
[2024-04-18] MEDS ORDERED: NALOXONE 0.4 MG/ML 1 ML VIAL IV PRN (21:29)
[2024-04-19] MEDS: HYDROcodone/APAP 10-325MG 1 EACH TAB PO PRN (00:16)
[2024-04-19 01:16] VITALS: RESP 16
[2024-04-19 07:14] LABS: Glucose,Whole Blood 137 mg/dL (70-110)
[2024-04-19] MEDS: PANTOPRAZOLE 40 MG/10 ML VIAL IV SCH (08:26)
--- NOTE | 2024-04-19 09:02 | P.HPIM ---
History of Present Illness H&P Date: 04/19/24 Boaz Reed is a 68-year-old male patient who was sent to ER for concerns of weakness and weight loss. Over the past 5 to 6 months patient has lost approximately 40 pounds. Patient denies any recent illness does complain of chronic back pain reports just poor appetite. Patient has past medical history of asthma, COPD, CVA, diabetes mellitus, hearing disorder, hyperlipidemia, hypertension, osteoarthritis, depression and previous joint replacement. Patient denies any nausea vomiting or blood in stool. Patient denies any recent chest pain or shortness of breath. Patient denies any recent urinary burning or frequency. Testing in ER revealed chest x-ray showing no acute cardiopulmonary disease or process. EKG showing sinus rhythm. Lab work revealing white blood cell 4.7, hemoglobin 10.0, sodium 134, creatinine 0.43 and bun 10. Total protein low at 6.2. TSH level also slightly low at 0.460. UA negative. At this time patient will be admitted surgical services consulted for possible colonoscopy and EGD to investigate weight loss and anemia. Stool for occult blood ordered. Repeat labs ordered. Current vital signs temp 98.3, heart rate 71, respiratory rate 16, blood pressure 136/72 with a pulse ox of 99% on room air Review of Systems Please refer to HPI otherwise unremarkable Past Medical History Past Medical History: Asthma, COPD, CVA/TIA, Diabetes Mellitus, Hearing Disorder / Deafness, Hyperlipidemia, Hypertension, Osteoarthritis (OA), Skin Disorder Additional Past Medical History / Comment(s): DM type II, arthritis in multiple joints, psoriasis, vitiligo, [place], hx of feeling lightheaded and falls., CVA- states left arm weak-unable to lift or reach far-unable to grasp with left hand , weakness left leg and states left foot drops down and catches on everything., uses wheelchair and cane., lower back and left hip pain, left arm fracture. History of Any Multi-Drug Resistant Organisms: None Reported Past Surgical History: Heart Catheterization, Joint Replacement Additional Past Surgical History / Comment(s): Bilateral hip replacements Past Anesthesia/Blood Transfusion Reactions: No Reported Reaction Additional Past Anesthesia/Blood Transfusion Reaction / Comment(s): pt states was unable to receive spinal tap with last surgery d/t arthritis in back, received general anesthetic" Past Psychological History: Depression Additional Psychological History / Comment(s): . Smoking Status: Former smoker Past Alcohol Use History: None Reported Additional Past Alcohol Use History / Comment(s): QUIT SMOKING 1994, smoked less than PPD for 3 years. Past Drug Use History: Marijuana Additional Drug Use History / Comment(s): DIGESTS MARIJUANA IN COFFEE , USES EDIBLE MARIJUANA OR SMOKES MARIJUANA FOR ANXIETY. - Past Family History Mother Family Medical History: Eye Disorder, Hearing Disorder / Deafness Additional Family Medical History / Comment(s): Father passed at 93yrs old. He had glaucoma and [place]. Medications and Allergies Home Medications Medication Instructions Recorded Confirmed Type HYDROcodone/APAP 10-325MG [[place] 1 tab PO TID PRN 02/05/23 04/18/24 History 10-325] Allergies Allergy/AdvReac Type Severity Reaction Status Date / Time No Known Allergies Allergy Verified 04/18/24 19:03 Physical Exam Vitals: Vital Signs Temp Pulse Pulse Resp BP BP Pulse Ox 04/19/24 07:09 97.4 F L 68 16 161/76 100 04/19/24 01:15 98.3 F 71 16 136/72 99 04/18/24 23:31 98.1 F 76 18 154/74 99 04/18/24 23:03 89 16 133/87 97 04/18/24 21:17 97 18 152/88 96 04/18/24 20:07 81 18 126/91 95 04/18/24 19:13 84 18 131/82 96 04/18/24 17:39 98 F 82 20 98/72 99 Intake and Output 04/18/24 04/19/24 04/19/24 22:59 06:59 14:59 Output Total 200 Balance -200 Output: Urine 200 Other: Weight 58.967 kg 58.967 kg Head normocephalic Neck supple Lungs clear to auscultation bilaterally no wheezing or crackles Heart regular rate and rhythm S1-S2, no rub or gallop Abdomen is soft nontender nondistended positive bowel sounds no hepatosplenomegaly Extremities no edema Neuro alert and orientated to 3 Results CBC & Chem 7: 04/18/24 18:34 04/18/24 18:34 Labs: Abnormal Lab Results - Last 24 Hours (Table) 04/18/24 04/18/24 04/18/24 Range/Units 18:34 18:34 19:01 RBC 2.27 L (4.30-5.90) m/uL Hgb 10.0 L D (13.0-17.5) gm/dL Hct 29.7 L (39.0-53.0) % MCV 130.7 H (80.0-100.0) fL MCH 44.2 H (25.0-35.0) pg RDW 17.6 H (11.5-15.5) % Macrocytosis Marked A Sodium 134 L (137-145) mmol/L Creatinine 0.43 L (0.66-1.25) mg/dL Glucose 216 H (74-99) mg/dL POC Glucose (mg/dL) (70-110) mg/dL Total Protein 6.2 L (6.3-8.2) g/dL TSH 0.460 L (0.465-4.680) mIU/L Urine Glucose (UA) 1+ H (Negative) 04/19/24 Range/Units 07:13 RBC (4.30-5.90) m/uL Hgb (13.0-17.5) gm/dL Hct (39.0-53.0) % MCV (80.0-100.0) fL MCH (25.0-35.0) pg RDW (11.5-15.5) % Macrocytosis Sodium (137-145) mmol/L Creatinine (0.66-1.25) mg/dL Glucose (74-99) mg/dL POC Glucose (mg/dL) 137 H (70-110) mg/dL Total Protein (6.3-8.2) g/dL TSH (0.465-4.680) mIU/L Urine Glucose (UA) (Negative) Thrombosis Risk Factor Assmnt - Choose All That Apply Any of the Below Risk Factors Present?: No Each Risk Factor Represents 2 Points: Age 61-74 years Other congenital or acquired thrombophilia - If yes, enter type in comment: No Thrombosis Risk Factor Assessment Total Risk Factor Score: 2 Thrombosis Risk Factor Assessment Level: Low Risk Assessment and Plan Assessment: 1. Weight loss 2. Anemia 3. Generalized weakness 4. Hyperthyroidism TSH is slightly low at 0.460 5. History of previous cardiac catheterization with stent placement in 2022 6. History of essential hypertension 7. History of hyperlipidemia 8. History of diabetes mellitus 9. History of COPD 10. History of osteoarthritis 11. History of psoriasis DVT prophylaxis Lovenox. GI prophylax Protonix Stool for occult blood ordered, repeat labs ordered Surgical services consulted Time with Patient: Greater than 30 (Greater than 60% of the total time spent in counseling and coordination of care)
[2024-04-19] MEDS: PEG 3350 (236 GM/BTL) + LYTES 4,000 ML BOTTLE PO ONE (09:47)
[2024-04-19] MEDS: MORPHINE SULFATE 4 MG/ML SYRINGE IV PRN (09:47)
--- NOTE | 2024-04-19 11:27 | XR ---
EXAM TYPE: LUMBAR SPINE X RAY SERIES COMPARISON: 01/17/2024 HISTORY: Pain TECHNIQUE: 4 views are submitted. FINDINGS: Alignment is anatomic. The pedicles are intact. The transverse processes are intact. There is no s pondylolysis or spondylolisthesis. Generalized demineralization. Multilevel degenerative change and facet arthropathy. Vascular calcific ations. Postsurgical change bilateral hip. IMPRESSION: 1. Multilevel hypertrophic and degenerative changes.
--- NOTE | 2024-04-19 11:29 | XR ---
EXAMINATION TYPE: XR thoracic spine complete DATE OF EXAM: 04/19/2024 COMPARISON: NONE HISTORY: Pain TECHNIQUE: 3 views submitted FINDINGS: Alignment is anatomic. There is no compression deformities. Generalized osteopenia with multilevel m ild to moderate degenerative disc disease most pronounced in the lower thoracic spine. Scoliotic curv ature. Degenerative disc disease lower cervical spine. IMPRESSION: 1. Multilevel [id number] degenerative disc disease of the thoracic spine.
--- NOTE | 2024-04-19 11:40 | P.GSCN ---
History of Present Illness Consult date: 04/19/24 History of present illness: CHIEF COMPLAINT: weight loss HISTORY OF PRESENT ILLNESS: this is a 68-year-old male who presented with weight loss and weakness. Patient has had a 40 pound weight loss over the last 6 months that was unintentional. Patient denies any abdominal pain. Denies any prior history of colonoscopy. He does report having intermittent constipation. Patient seen and examined with Dr. tobin PAST MEDICAL HISTORY: Asthma, COPD, CVA, Diabetes Mellitus, Hearing Disorder / Deafness, Hyperlipidemia, Hypertension, Osteoarthritis (OA), Skin Disorder PAST SURGICAL HISTORY: See below MEDICATIONS: See below ALLERGIES: See below SOCIAL HISTORY: No illicit drug use. marijuana REVIEW OF SYSTEMS: CONSTITUTIONAL: Denies fever or chills. HEENT: Denies blurred vision, vision changes, or eye pain. Denies hemoptysis CARDIOVASCULAR: Denies chest pain or pressure. RESPIRATORY: No shortness of breath. GASTROINTESTINAL: See HPI for pertinent findings HEMATOLOGIC: Denies bleeding disorders. GENITOURINARY: Denies any blood in urine or increased urinary frequency. SKIN: Denies pruitis. Denies rash. PHYSICAL EXAM: VITAL SIGNS: Reviewed GENERAL: no acute distress. ABDOMEN: Soft. Obese. Nondistended. Tenderness with palpation to right lower quadrant. NEUROLOGIC: Alert and oriented. Cranial nerves II through XII grossly intact. LABORATORY DATA: WBC 4.7 Hgb 10 platelets 242 Na 134 K 4.2 cr 0.43 IMAGING: ASSESSMENT: 1. Unintentional 40 pound weight loss 2. Episodes of constipation PLAN: -Patient scheduled for EGD and colonoscopy tomorrow with Dr. Tobin -Start GoLYTELY bowel prep today -Clear liquid diet today -Nothing by mouth after midnight Physician Systems Testing Laboratory Technician note has been reviewed by physician. Signing provider agrees with the documented findings, assessment, and plan of care. Past Medical History Past Medical History: Asthma, COPD, CVA/TIA, Diabetes Mellitus, Hearing Disorder / Deafness, Hyperlipidemia, Hypertension, Osteoarthritis (OA), Skin Disorder Additional Past Medical History / Comment(s): DM type II, arthritis in multiple joints, psoriasis, vitiligo, [place], hx of feeling lightheaded and falls., CVA- states left arm weak-unable to lift or reach far-unable to grasp with left hand , weakness left leg and states left foot drops down and catches on everything., uses wheelchair and cane., lower back and left hip pain, left arm fracture. History of Any Multi-Drug Resistant Organisms: None Reported Past Surgical History: Heart Catheterization, Joint Replacement Additional Past Surgical History / Comment(s): Bilateral hip replacements Past Anesthesia/Blood Transfusion Reactions: No Reported Reaction Additional Past Anesthesia/Blood Transfusion Reaction / Comm: pt states was unable to receive spinal tap with last surgery d/t arthritis in back, received general anesthetic" Past Psychological History: Depression Additional Psychological History / Comment(s): . Smoking Status: Former smoker Past Alcohol Use History: None Reported Additional Past Alcohol Use History / Comment(s): QUIT SMOKING 1994, smoked less than PPD for 3 years. Past Drug Use History: Marijuana Additional Drug Use History / Comment(s): DIGESTS MARIJUANA IN COFFEE , USES EDIBLE MARIJUANA OR SMOKES MARIJUANA FOR ANXIETY. - Past Family History Mother Family Medical History: Eye Disorder, Hearing Disorder / Deafness Additional Family Medical History / Comment(s): Father passed at 93yrs old. He had glaucoma and yuhaaviatam. Medications and Allergies Home Medications Medication Instructions Recorded Confirmed Type HYDROcodone/APAP 10-325MG [[place] 1 tab PO TID PRN 02/05/23 04/18/24 History 10-325] Allergies Allergy/AdvReac Type Severity Reaction Status Date / Time No Known Allergies Allergy Verified 04/18/24 19:03 Surgical - Exam Vital Signs Temp Pulse Resp BP Pulse Ox 98 F 82 20 98/72 99 04/18/24 17:39 04/18/24 17:39 04/18/24 17:39 04/18/24 17:39 04/18/24 17:39 Results - Labs 04/18/24 18:34 04/18/24 18:34 Abnormal Lab Results - Last 24 Hours (Table) 04/18/24 04/18/24 04/18/24 Range/Units 18:34 18:34 19:01 RBC 2.27 L (4.30-5.90) m/uL Hgb 10.0 L D (13.0-17.5) gm/dL Hct 29.7 L (39.0-53.0) % MCV 130.7 H (80.0-100.0) fL MCH 44.2 H (25.0-35.0) pg RDW 17.6 H (11.5-15.5) % Macrocytosis Marked A Sodium 134 L (137-145) mmol/L Creatinine 0.43 L (0.66-1.25) mg/dL Glucose 216 H (74-99) mg/dL POC Glucose (mg/dL) (70-110) mg/dL Total Protein 6.2 L (6.3-8.2) g/dL TSH 0.460 L (0.465-4.680) mIU/L Urine Glucose (UA) 1+ H (Negative) 04/19/24 Range/Units 07:13 RBC (4.30-5.90) m/uL Hgb (13.0-17.5) gm/dL Hct (39.0-53.0) % MCV (80.0-100.0) fL MCH (25.0-35.0) pg RDW (11.5-15.5) % Macrocytosis Sodium (137-145) mmol/L Creatinine (0.66-1.25) mg/dL Glucose (74-99) mg/dL POC Glucose (mg/dL) 137 H (70-110) mg/dL Total Protein (6.3-8.2) g/dL TSH (0.465-4.680) mIU/L Urine Glucose (UA) (Negative) Diabetes panel 04/18/24 Range/Units 18:34 Sodium 134 L (137-145) mmol/L Potassium 4.2 (3.5-5.1) mmol/L Chloride 102 (98-107) mmol/L Carbon Dioxide 28 (22-30) mmol/L BUN 10 (9-20) mg/dL Creatinine 0.43 L (0.66-1.25) mg/dL Glucose 216 H (74-99) mg/dL Calcium 8.8 (8.4-10.2) mg/dL AST 27 (17-59) U/L ALT 12 (4-49) U/L Alkaline Phosphatase 44 (38-126) U/L Total Protein 6.2 L (6.3-8.2) g/dL Albumin 4.0 (3.5-5.0) g/dL Thyroid panel 04/18/24 Range/Units 18:34 TSH 0.460 L (0.465-4.680) mIU/L Calcium panel 04/18/24 Range/Units 18:34 Calcium 8.8 (8.4-10.2) mg/dL Albumin 4.0 (3.5-5.0) g/dL Pituitary panel 04/18/24 Range/Units 18:34 Sodium 134 L (137-145) mmol/L Potassium 4.2 (3.5-5.1) mmol/L Chloride 102 (98-107) mmol/L Carbon Dioxide 28 (22-30) mmol/L BUN 10 (9-20) mg/dL Creatinine 0.43 L (0.66-1.25) mg/dL Glucose 216 H (74-99) mg/dL Calcium 8.8 (8.4-10.2) mg/dL TSH 0.460 L (0.465-4.680) mIU/L Adrenal panel 04/18/24 Range/Units 18:34 Sodium 134 L (137-145) mmol/L Potassium 4.2 (3.5-5.1) mmol/L Chloride 102 (98-107) mmol/L Carbon Dioxide 28 (22-30) mmol/L BUN 10 (9-20) mg/dL Creatinine 0.43 L (0.66-1.25) mg/dL Glucose 216 H (74-99) mg/dL Calcium 8.8 (8.4-10.2) mg/dL Total Bilirubin 1.2 (0.2-1.3) mg/dL AST 27 (17-59) U/L ALT 12 (4-49) U/L Alkaline Phosphatase 44 (38-126) U/L Total Protein 6.2 L (6.3-8.2) g/dL Albumin 4.0 (3.5-5.0) g/dL
[2024-04-19 12:16] LABS: Glucose,Whole Blood 126 mg/dL (70-110)
[2024-04-19 12:20] VITALS: BMI 18.6
[2024-04-19 17:04] LABS: Glucose,Whole Blood 137 mg/dL (70-110)
[2024-04-19] MEDS: carvediloL 3.125 MG TAB PO SCH (17:58)
[2024-04-19 20:06] LABS: Glucose,Whole Blood 209 mg/dL (70-110)
[2024-04-19 23:53] LABS: % Iron Saturation 58.82 (15.00-50.00)
[2024-04-20 04:39] LABS: ALT 11 U/L (4-49); AST 20 U/L (17-59); African American GFR (CKD) >90 (>60 ml/min/1.73 sqM); Albumin 3.2 g/dL (3.5-5.0); Albumin/Globulin Ratio 1.5; Alkaline Phosphatase 39 U/L (38-126); Anion Gap 6 mmol/L; Blood Urea Nitrogen 7 mg/dL (9-20); Calcium 8.7 mg/dL (8.4-10.2); Carbon Dioxide 29 mmol/L (22-30); Chloride 105 mmol/L (98-107); Globulin 2.1 g/dL; Glucose 114 mg/dL (74-99); Non-African American GFR(CKD) >90 (>60 ml/min/1.73 sqM); Potassium 3.9 mmol/L (3.5-5.1); Sodium 140 mmol/L (137-145); Total Bilirubin 1.2 mg/dL (0.2-1.3); Total Protein 5.3 g/dL (6.3-8.2)
[2024-04-20 04:42] LABS: Anisocytosis Slight; HCT 28.8 % (39.0-53.0); MCHC 34.9 g/dL (31.0-37.0); MCV 128.9 fL (80.0-100.0); Macrocytosis Marked; Mean Platelet Volume 8.4; Platelet Count 246 k/uL (150-450); RBC 2.24 m/uL (4.30-5.90); RDW 17.4 % (11.5-15.5); WBC 6.4 k/uL (3.8-10.6)
[2024-04-20 04:47] LABS: MCH 44.9 pg (25.0-35.0)
[2024-04-20 05:07] LABS: Eosinophils # (M) 0.13 k/uL (0-0.7); Lymphocytes # (M) 2.75 k/uL (1.0-4.8); Monocytes # (M) 0.32 k/uL (0-1.0); Neutrophils % (M) 50 %; Nucleated Red Blood Cells 0 /100 WBC (0-0); Total Cells Counted 100
[2024-04-20 07:12] LABS: Glucose,Whole Blood 144 mg/dL (70-110)
[2024-04-20] MEDS: ATORVASTATIN 10 MG TAB PO SCH (09:35)
[2024-04-20] MEDS ORDERED: LIDOCAINE 2% (PF) 20 MG/ML 5 ML VIAL ONE (11:16)
[2024-04-20] MEDS ORDERED: PROPOFOL 10 MG/ML 20 ML VIAL IV ONE (11:16)
[2024-04-20] MEDS: SODIUM CHLORIDE 0.9% 500 ML 500 ML IV ONE (11:17)
--- NOTE | 2024-04-20 11:41 | P.OP ---
Date of Procedure: 04/20/24 Preoperative Diagnosis: Weight loss, anemia, GI bleed Postoperative Diagnosis: Antral gastritis Normal colon Procedure(s) Performed: EGD Colonoscopy Anesthesia: MAC Surgeon: Rai Mejia Pathology: other (Antrum) Condition: stable Disposition: PACU Description of Procedure: The patient is placed on the endoscopy table in the lateral position. He received IV sedation. The gas was placed oropharynx passed in the esophagus and stomach. Scope was placed through the pylorus. The first and second portion of the duodenum appeared normal. Scope was brought back to the antrum this appeared mildly Flaim. A biopsy was performed. Scope was then retroflexed and remainder of the stomach appeared normal. The GE junction was at 40 cm. There is no evidence of hiatal hernia. The distal esophagus and proximal esophagus were normal. Scope withdrawn for the patient. Next digital rectal exam was performed. This revealed no abnormality. The flexible colonoscope was then placed throughout the colon. The ileocecal valve was visualized. The cecum, ascending and transverse colon appeared normal. The descending and sigmoid colon appeared normal. Scope was brought back to the rectum this was normal. Scope withdrawn for the patient.
[2024-04-20 12:05] LABS: Glucose,Whole Blood 122 mg/dL (70-110)
[2024-04-20] MEDS: ENOXAPARIN 40 MG/0.4 ML SYRINGE SQ SCH (12:05)
--- NOTE | 2024-04-20 16:31 | P.PN ---
Subjective Progress Note Date: 04/20/24 Boaz Reed is a 68-year-old male patient who was sent to ER for concerns of weakness and weight loss. Over the past 5 to 6 months patient has lost approximately 40 pounds. Patient denies any recent illness does complain of chronic back pain reports just poor appetite. Patient has past medical history of asthma, COPD, CVA, diabetes mellitus, hearing disorder, hyperlipidemia, hypertension, osteoarthritis, depression and previous joint replacement. Patient denies any nausea vomiting or blood in stool. Patient denies any recent chest pain or shortness of breath. Patient denies any recent urinary burning or frequency. Testing in ER revealed chest x-ray showing no acute cardiopulmonary disease or process. EKG showing sinus rhythm. Lab work revealing white blood cell 4.7, hemoglobin 10.0, sodium 134, creatinine 0.43 and bun 10. Total protein low at 6.2. TSH level also slightly low at 0.460. UA negative. At this time patient will be admitted surgical services consulted for possible colonoscopy and EGD to investigate weight loss and anemia. Stool for occult blood ordered. Repeat labs ordered. Current vital signs temp 98.3, heart rate 71, respiratory rate 16, blood pressure 136/72 with a pulse ox of 99% on room air On 04/20/2024 patient was seen and examined on the medical floor he is alert and oriented x 3 in no apparent distress there is no fever or chills no headache or dizziness no chest pain no shortness of breath no cough no nausea or vomiting no abdominal pain no diarrhea and no urinary symptoms, he is complaining of low back pain otherwise he denies any complaints. EGD and colonoscopy were done this morning and revealed evidence of antral gastritis, normal colonoscopy. Apparently patient lives in poor conditions and is not receiving significant help, mostly cannot afford food, will ask social security assessor to evaluate possible discharge to home tomorrow. Objective - Vital Signs Vital signs: Vital Signs Temp 98.3 F 04/20/24 12:35 Pulse 61 04/20/24 12:35 Resp 16 04/20/24 12:35 BP 145/71 04/20/24 12:35 Pulse Ox 99 04/20/24 12:35 FiO2 Intake & Output 04/19/24 04/20/24 04/20/24 18:59 06:59 18:59 Intake Total 200 Output Total 1050 Balance -1050 200 Weight 58.967 kg Intake: IV 200 Output: Urine 1050 Other: Voiding Method Urinal Urinal # Voids 3 # Bowel Movements 4 - Exam In general patient is alert and oriented x 3 in no distress HEENT head normocephalic and atraumatic Neck is supple no JVD no goiter no lymphadenopathy no carotid bruit Chest examination is clear to auscultation no crackles no wheezing Cardiac exam reveals regular heart sounds S1 and S2 no gallops no murmurs Abdomen is soft nontender no organomegaly with normal bowel sounds Extremity exam reveals no edema no cyanosis or clubbing Neurological examination reveals no gross focal deficits - Labs CBC & Chem 7: 04/20/24 03:17 04/20/24 03:17 Labs: Abnormal Lab Results - Last 24 Hours (Table) 04/18/24 04/18/24 04/19/24 Range/Units 18:34 18:34 17:02 RBC (4.30-5.90) m/uL Hgb (13.0-17.5) gm/dL Hct (39.0-53.0) % MCV (80.0-100.0) fL MCH (25.0-35.0) pg RDW (11.5-15.5) % Macrocytosis BUN (9-20) mg/dL Creatinine (0.66-1.25) mg/dL Glucose (74-99) mg/dL POC Glucose (mg/dL) 137 H (70-110) mg/dL Hemoglobin A1c 7.1 H (<=6.0) % TIBC 221 L (228-460) UG/DL % Saturation 58.82 H (15.00-50.00) Transferrin 158.0 L (204.0-354.0) mg/dL Total Protein (6.3-8.2) g/dL Albumin (3.5-5.0) g/dL 04/19/24 04/20/24 04/20/24 Range/Units 20:05 03:17 03:17 RBC 2.24 L (4.30-5.90) m/uL Hgb 10.0 L (13.0-17.5) gm/dL Hct 28.8 L (39.0-53.0) % MCV 128.9 H (80.0-100.0) fL MCH 44.9 H (25.0-35.0) pg RDW 17.4 H (11.5-15.5) % Macrocytosis Marked A BUN 7 L (9-20) mg/dL Creatinine 0.39 L (0.66-1.25) mg/dL Glucose 114 H (74-99) mg/dL POC Glucose (mg/dL) 209 H (70-110) mg/dL Hemoglobin A1c (<=6.0) % TIBC (228-460) UG/DL % Saturation (15.00-50.00) Transferrin (204.0-354.0) mg/dL Total Protein 5.3 L (6.3-8.2) g/dL Albumin 3.2 L (3.5-5.0) g/dL 04/20/24 04/20/24 Range/Units 07:10 12:04 RBC (4.30-5.90) m/uL Hgb (13.0-17.5) gm/dL Hct (39.0-53.0) % MCV (80.0-100.0) fL MCH (25.0-35.0) pg RDW (11.5-15.5) % Macrocytosis BUN (9-20) mg/dL Creatinine (0.66-1.25) mg/dL Glucose (74-99) mg/dL POC Glucose (mg/dL) 144 H 122 H (70-110) mg/dL Hemoglobin A1c (<=6.0) % TIBC (228-460) UG/DL % Saturation (15.00-50.00) Transferrin (204.0-354.0) mg/dL Total Protein (6.3-8.2) g/dL Albumin (3.5-5.0) g/dL Assessment and Plan Plan: 1. Weight loss 2. Anemia 3. Generalized weakness 4. Hyperthyroidism TSH is slightly low at 0.460 5. History of previous cardiac catheterization with stent placement in 2022 6. History of essential hypertension 7. History of hyperlipidemia 8. History of diabetes mellitus 9. History of COPD 10. History of osteoarthritis 11. History of psoriasis DVT prophylaxis Lovenox. GI prophylax Protonix Stool for occult blood ordered, repeat labs ordered Surgical services consulted
[2024-04-20 17:10] LABS: Glucose,Whole Blood 169 mg/dL (70-110)
[2024-04-21 07:19] LABS: Glucose,Whole Blood 206 mg/dL (70-110)
[2024-04-21 12:04] LABS: Glucose,Whole Blood 185 mg/dL (70-110)
--- NOTE | 2024-04-21 12:17 | P.PN ---
Subjective Progress Note Date: 04/21/24 CHIEF COMPLAINT: Weight loss HISTORY OF PRESENT ILLNESS: Patient status post EGD and colonoscopy with results reporting antral gastritis and a normal colonoscopy. Biopsy done. Patient tolerating diet. No complaints. Patient seen and examined with Dr. Mejia PHYSICAL EXAM: VITAL SIGNS: Reviewed. GENERAL: no acute distress. ABDOMEN: Soft. Nondistended. Nontender. ASSESSMENT: 1. Unintentional 40 pound weight loss status post EGD and colonoscopy with results reporting antral gastritis and normal colonoscopy 2. Episodes of constipation 3. Anemia PLAN: -Continue PPI for gastritis -Continue regular diet -Recommend follow-up with Dr. Mejia in office in 1 week -Surgical service will sign off. Please call with any questions or concerns Physician Capsule Filler note has been reviewed by physician. Signing provider agrees with the documented findings, assessment, and plan of care. Objective - Vital Signs Vital signs: Vital Signs Temp 97.4 F L 04/21/24 07:20 Pulse 63 04/21/24 07:20 Resp 16 04/21/24 07:20 BP 147/70 04/21/24 07:20 Pulse Ox 97 04/21/24 07:20 FiO2 Intake & Output 04/20/24 04/21/24 04/21/24 18:59 06:59 18:59 Intake Total 2600 590 Output Total 1500 300 600 Balance 1100 290 -600 Weight 58.967 kg Intake: IV 200 Oral 2400 590 Output: Urine 1500 300 600 Other: # Voids 5 # Bowel Movements 3 - Labs CBC & Chem 7: 04/20/24 03:17 04/20/24 03:17 Labs: Abnormal Lab Results - Last 24 Hours (Table) 04/20/24 04/21/24 04/21/24 Range/Units 17:08 07:18 12:03 POC Glucose (mg/dL) 169 H 206 H 185 H (70-110) mg/dL
--- NOTE | 2024-04-21 12:58 | P.DS ---
Providers Date of admission: 04/18/24 22:28 Expected date of discharge: 04/21/24 Attending physician: Catherine Barry Primary care physician: Catherine Barry Hospital Course: Discharge diagnosis 1. Weight loss 2. Anemia 3. Generalized weakness 4. Hyperthyroidism TSH is slightly low at 0.460 5. History of previous cardiac catheterization with stent placement in 2022 6. History of essential hypertension 7. History of hyperlipidemia 8. History of diabetes mellitus 9. History of COPD 10. History of osteoarthritis 11. History of psoriasis Hospital course Boaz Reed is a 68-year-old male patient who was sent to ER for concerns of weakness and weight loss. Over the past 5 to 6 months patient has lost approximately 40 pounds. Patient denies any recent illness does complain of chronic back pain reports just poor appetite. Patient has past medical history of asthma, COPD, CVA, diabetes mellitus, hearing disorder, hyperlipidemia, hypertension, osteoarthritis, depression and previous joint replacement. Patient denies any nausea vomiting or blood in stool. Patient denies any recent chest pain or shortness of breath. Patient denies any recent urinary burning or frequency. Testing in ER revealed chest x-ray showing no acute cardiopulmonary disease or process. EKG showing sinus rhythm. Lab work revealing white blood cell 4.7, hemoglobin 10.0, sodium 134, creatinine 0.43 and bun 10. Total protein low at 6.2. TSH level also slightly low at 0.460. UA negative. At this time patient will be admitted surgical services consulted for possible colonoscopy and EGD to investigate weight loss and anemia. Stool for occult blood ordered. Repeat labs ordered. Current vital signs temp 98.3, heart rate 71, respiratory rate 16, blood pressure 136/72 with a pulse ox of 99% on room air On 04/20/2024 patient was seen and examined on the medical floor he is alert and oriented x 3 in no apparent distress there is no fever or chills no headache or dizziness no chest pain no shortness of breath no cough no nausea or vomiting no abdominal pain no diarrhea and no urinary symptoms, he is complaining of low back pain otherwise he denies any complaints. EGD and colonoscopy were done this morning and revealed evidence of antral gastritis, normal colonoscopy. Apparently patient lives in poor conditions and is not receiving significant help, mostly cannot afford food, will ask medical social worker to evaluate possible discharge to home tomorrow. On 04/21/2024 patient is alert and oriented x 3. PT OT recommending rehab but patient refused we will discharge patient home with home health care. All new prescription sent including Protonix. Patient denies chest pain or shortness of breath. Patient denies nausea vomiting or diarrhea. Patient denies any urinary burning or frequency. Current vital signs temp 98.8, heart rate 61, respiratory rate 16, blood pressure 128/66 with a pulse ox of 98% on room air Patient Condition at Discharge: Stable Plan - Discharge Summary Discharge Rx Participant: No New Discharge Prescriptions: New carvediloL [Coreg] 3.125 mg PO BID-W/MEALS 30 Days #60 tab Atorvastatin [Lipitor] 10 mg PO DAILY 30 Days #30 tab Pantoprazole [Protonix] 40 mg PO DAILY 30 Days #30 tab Continue HYDROcodone/APAP 10-325MG [[place] 10-325] 1 tab PO TID PRN PRN Reason: Pain Discharge Medication List HYDROcodone/APAP 10-325MG [[place] 10-325] 1 tab PO TID PRN 02/05/23 [History] Atorvastatin [Lipitor] 10 mg PO DAILY 30 Days #30 tab 04/21/24 [Rx] Pantoprazole [Protonix] 40 mg PO DAILY 30 Days #30 tab 04/21/24 [Rx] carvediloL [Coreg] 3.125 mg PO BID-W/MEALS 30 Days #60 tab 04/21/24 [Rx] Follow up Appointment(s)/Referral(s): [facility] [NON-STAFF] - 1 Week Catherine Barry MD [Primary Care Provider] - 1-2 days Rai Mejia MD [STAFF PHYSICIAN] - 1 Week Activity/Diet/Wound Care/Special Instructions: activity as tolerated diet heart healthy Discharge Disposition: HOME WITH HOME HEALTH SERVICES
[2024-04-21 14:07] VITALS: BP 144/67; PULSE 71; TEMP 98.5
== END 2024-04-21 14:11 | disposition home health service (06) ==
LOC: EC 16:59 → 5NMEDONC 22:28
PROVIDERS: ADMIT Internal Medicine; ATTEND Internal Medicine
DX: K29.50 Unspecified chronic gastritis without bleeding (principal); R63.4 Abnormal weight loss; R53.1 Weakness; K59.00 Constipation, unspecified; D64.9 Anemia, unspecified; J44.9 Chronic obstructive pulmonary disease, unspecified; E11.9 Type 2 diabetes mellitus without complications; E78.5 Hyperlipidemia, unspecified; I10 Essential (primary) hypertension; F32.A Depression, unspecified; E05.90 Thyrotoxicosis, unspecified without thyrotoxic crisis or storm; M19.90 Unspecified osteoarthritis, unspecified site; L40.9 Psoriasis, unspecified; Z68.1 Body mass index [BMI] 19.9 or less, adult; Z86.73 Personal history of transient ischemic attack (TIA), and cerebral infarction without residual deficits; Z87.891 Personal history of nicotine dependence; Z95.5 Presence of coronary angioplasty implant and graft
CPT/HCPCS: 36415; 43239; 45378; 71046; 72072; 72100; 80053; 81003; 82728; 83036; 83540; 83550; 83605; 83735; 84439; 84443; 85025; 88305; 93005; 96361; 96372; 96374; 96375; 96376; 99285

== ENCOUNTER 2024-05-19 11:01 | Emergency (ER) | payer MEDICARE, OTHER ==
[2024-05-19 11:17] VITALS: RESP 18; TEMP 98
[2024-05-19] MEDS: HYDROmorphone 1 MG/ML 1 ML SYRINGE IVP STA (11:40)
[2024-05-19 11:55] LABS: Partial Thromboplastin Time 25.1 sec (22.0-30.0); Prothrombin Time 10.9 sec (10.0-12.5)
--- NOTE | 2024-05-19 11:56 | ED ---
Fall HPI - General Chief Complaint: Fall Stated Complaint: Fall Time Seen by Provider: 05/19/24 11:02 Source: patient, EMS, RN notes reviewed Mode of arrival: EMS Limitations: no limitations - History of Present Illness Initial Comments: This is a 68-year-old male who presents to the emergency department for a fall. Patient states that when he woke up this morning he went to get out of bed and started to feel dizzy. States that the dizziness has become a recurrent issue for him. He then fell. Unsure exactly what happened but states that he was on the floor for 1 to 2 hours. He was then able to reach his phone and called his neighbor who came over to help him up before calling EMS. He did hit his head. Unsure if he lost consciousness or if he is taking blood thinners. Denies sustaining any other injuries. Complains of back pain but states that this is chronic. Per EMS, patient lives in a camper behind someone else's house. He has been falling almost every day and they continuously go over to help him off. They said that the place is a complete mess and covered in urine and feces. MD Complaint: fall - Related Data Home Medications Medication Instructions Recorded Confirmed Albuterol Sulfate [Albuterol 1 - 2 puff PO RT-Q4H PRN 05/19/24 05/19/24 Sulfate Hfa] Ergocalciferol [Vitamin D2 (1250 1,250 mcg PO WEEKLY 05/19/24 05/19/24 Mcg = 81100 Iu)] Insulin Degludec [Tresiba] 35 units SQ DAILY 05/19/24 05/19/24 Montelukast [Singulair] 10 mg PO HS 05/19/24 05/19/24 lisinopriL [Prinivil] 20 mg PO DAILY 05/19/24 05/19/24 Previous Rx's Medication Instructions Recorded Atorvastatin [Lipitor] 10 mg PO DAILY 30 Days #30 tab 04/21/24 Pantoprazole [Protonix] 40 mg PO DAILY 30 Days #30 tab 04/21/24 carvediloL [Coreg] 3.125 mg PO BID-W/MEALS 30 Days 04/21/24 #60 tab Allergies Allergy/AdvReac Type Severity Reaction Status Date / Time No Known Allergies Allergy Verified 05/19/24 14:07 Review of Systems ROS Statement: Those systems with pertinent positive or pertinent negative responses have been documented in the HPI. ROS Other: All systems not noted in ROS Statement are negative. Past Medical History Past Medical History: Asthma, COPD, CVA/TIA, Diabetes Mellitus, Hearing Disorder / Deafness, Hyperlipidemia, Hypertension, Osteoarthritis (OA), Skin Disorder Additional Past Medical History / Comment(s): DM type II, arthritis in multiple joints, psoriasis, vitiligo, [place], hx of feeling lightheaded and falls., CVA- states left arm weak-unable to lift or reach far-unable to grasp with left hand , weakness left leg and states left foot drops down and catches on everything., uses wheelchair and cane., lower back and left hip pain, left arm fracture. History of Any Multi-Drug Resistant Organisms: None Reported Past Surgical History: Heart Catheterization, Joint Replacement Additional Past Surgical History / Comment(s): Bilateral hip replacements Past Anesthesia/Blood Transfusion Reactions: No Reported Reaction Additional Past Anesthesia/Blood Transfusion Reaction / Comment(s): pt states was unable to receive spinal tap with last surgery d/t arthritis in back, received general anesthetic" Past Psychological History: Depression Smoking Status: Former smoker Past Alcohol Use History: None Reported Past Drug Use History: Marijuana - Past Family History Mother Family Medical History: Eye Disorder, Hearing Disorder / Deafness Additional Family Medical History / Comment(s): Father passed at 93yrs old. He had glaucoma and [place]. General Exam Limitations: no limitations General appearance: alert, in no apparent distress Head exam: Present: atraumatic, normocephalic, normal inspection Eye exam: Present: normal appearance, PERRL, EOMI. Absent: scleral icterus, conjunctival injection, periorbital swelling Respiratory exam: Present: normal lung sounds bilaterally. Absent: respiratory distress, wheezes, rales, rhonchi, stridor Cardiovascular Exam: Present: regular rate, normal rhythm, normal heart sounds. Absent: systolic murmur, diastolic murmur, rubs, gallop, clicks Neurological exam: Present: alert, oriented X3, CN II-XII intact Psychiatric exam: Present: normal affect, normal mood Course Vital Signs 05/19/24 05/19/24 05/19/24 11:08 13:43 15:25 Temperature 98 F 98 F Pulse Rate 78 81 78 Respiratory 18 18 18 Rate Blood Pressure 130/62 133/97 132/84 O2 Sat by Pulse 96 97 98 Oximetry Medical Decision Making - Medical Decision Making This is a 68-year-old male who presents to the emergency department for a fall and weakness. Was pt. sent in by a medical professional or institution? @ -No Did you speak to anyone other than the patient for history? @ -EMS provided the information about the frequent falls and poor living conditions. Did you review nursing and triage notes? @ -Yes, and I agree, it is accurate with regards to the patient's symptoms. Were old charts reviewed? @ -No Differential Diagnosis? @ -Differential Weakness: Hypoglycemia, shock, sepsis, hyponatremia, anemia, infection, MA, ETOH, adverse medicine reaction, overdose, stroke, this is not meant to be an all-inclusive list. EKG interpreted by me (3pts min.)? @ -EKG interpreted by me demonstrating the following: Sinus rhythm. Ventr icular rate 63 bpm, HI interval 141 ms, QRS duration 84 ms, QTc 416 ms. X-rays interpreted by me (1pt min.)? @ -Chest x-ray obtained, my interpretation identifies no localized consolidations or infiltrates. X-ray of the pelvis and lumbar spine obtained as well. My interpretation identifies no acute fractures. CT interpreted by me (1pt min.)? @ -Computed tomography scan of the brain and c-spine obtained. My interpretation identifies no evidence of an acute intracranial hemorrhage, skull fracture, or cervical spine fracture. U/S interpreted by me (1pt. min.)? @ -Not obtained What testing was considered but not performed? (CT, X-rays, U/S, labs)? Why? @ -None What meds were considered but not given? Why? @ -None Did you discuss the management of the patient with other professionals? @ -Yes, Case management, who advised that the patient refuses rehab every time he is in the hospital and prefers his current living situation. He also has a social work manager she reached out to who will look into his situation further. Did you reconcile home meds? @ -No Was smoking cessation discussed for >3mins.? @ -No Was critical care preformed (if so, how long)? @ -No Were there social determinants of health that impacted care today? How? (Homelessness, low income, unemployed, alcoholism, drug addiction, transportation, low edu. Level, literacy, decrease access to med. care, assisted, rehab)? @ -No Was there de-escalation of care discussed even if they declined? (Discuss DNR or withdrawal of care, Hospice)? @ -No What co-morbidities impacted this encounter? (DM, HTN, Smoking, COPD, CAD, Cancer, CVA, Hep., AIDS, mental health diagnosis, sleep apnea, morbid obesity)? @ -DM, HLD, HTN Was patient admitted / discharged? @ -Discharged. Lab work unremarkable. Urinalysis negative for signs of infection. CT scan of the brain and C-spine revealed no acute process. X-ray of the chest, pelvis, and lumbar spine obtained revealing no acute injuries. Pain was managed in the emergency department. There was concern about the patient's living situation in that he lives in an RV behind a friend's house. Case management reviewed patient's prior visits and each time he refuses rehab. He also has home care services but often refuses their help. Patient states that he has a cat that he wants to take care of and does not want to leave his home at this time. residential leasing manager states that he has a social work manager who is trying to help him out and find him more appropriate housing. Patient states that he would like to go home at this time and has no interest in remaining in the hospital or being placed in rehab. Patient's social work manager advised that she will look into the issue further. He was also provided with a list of community resources in the emergency department prior to discharge. Case discussed with ED attending Dr. Mauro. Return precautions reviewed in depth, the patient is instructed to return to the emergency department with any new, worsening, or concerning symptoms. Patient verbalized understanding. Undiagnosed new problem with uncertain prognosis? @ -None Drug Therapy requiring intensive monitoring for toxicity (Heparin, Nitro, Insulin, Cardizem)? @ -None Were any procedures done? @ -None Diagnosis/symptom? @ -Fall, head injury, weakness Acute, or Chronic, or Acute on Chronic? @ -Acute Uncomplicated (without systemic symptoms) or Complicated (systemic symptoms)? @ -Uncomplicated Side effects of treatment? @ -None Exacerbation, Progression, or Severe Exacerbation] @ -Not applicable Poses a threat to life or bodily function? @ -Unclear - Lab Data Result diagrams: 05/19/24 11:35 05/19/24 11:35 Lab Results 05/19/24 05/19/24 05/19/24 Range/Units 11:35 11:35 11:35 WBC 6.3 (3.8-10.6) k/uL RBC 2.18 L (4.30-5.90) m/uL Hgb 9.9 L (13.0-17.5) gm/dL Hct 29.1 L (39.0-53.0) % MCV 133.4 H (80.0-100.0) fL MCH 45.5 H (25.0-35.0) pg MCHC 34.1 (31.0-37.0) g/dL RDW 16.8 H (11.5-15.5) % Plt Count 248 (150-450) k/uL MPV 8.9 Neutrophils % 83 % Lymphocytes % 13 % Monocytes % 3 % Eosinophils % 1 % Basophils % 0 % Neutrophils # 5.2 (1.3-7.7) k/uL Lymphocytes # 0.8 L (1.0-4.8) k/uL Monocytes # 0.2 (0-1.0) k/uL Eosinophils # 0.0 (0-0.7) k/uL Basophils # 0.0 (0-0.2) k/uL Manual Slide Review Performed Anisocytosis Slight Macrocytosis Marked A PT 10.9 (10.0-12.5) sec INR 1.0 (<1.2) APTT 25.1 (22.0-30.0) sec Sodium (137-145) mmol/L Potassium (3.5-5.1) mmol/L Chloride (98-107) mmol/L Carbon Dioxide (22-30) mmol/L Anion Gap mmol/L BUN (9-20) mg/dL Creatinine (0.66-1.25) mg/dL Est GFR (CKD-EPI)AfAm (>60 ml/min/1.73 sqM) Est GFR (CKD-EPI)NonAf (>60 ml/min/1.73 sqM) Glucose (74-99) mg/dL Plasma Lactic Acid Matty (0.7-2.0) mmol/L Calcium (8.4-10.2) mg/dL Phosphorus (2.5-4.5) mg/dL Magnesium (1.6-2.3) mg/dL Total Bilirubin (0.2-1.3) mg/dL AST (17-59) U/L ALT (4-49) U/L Alkaline Phosphatase (38-126) U/L Creatine Kinase (55-170) U/L Troponin I (0.000-0.034) ng/mL Total Protein (6.3-8.2) g/dL Albumin (3.5-5.0) g/dL Urine Color Light Yellow Urine Appearance Clear (Clear) Urine pH 6.0 (5.0-8.0) Ur Specific [place] 1.013 (1.001-1.035) Urine Protein Negative (Negative) Urine Glucose (UA) Negative (Negative) Urine Ketones Negative (Negative) Urine Blood Negative (Negative) Urine Nitrite Negative (Negative) Urine Bilirubin Negative (Negative) Urine Urobilinogen <2.0 (<2.0) mg/dL Ur Leukocyte Esterase Negative (Negative) 05/19/24 05/19/24 05/19/24 Range/Units 11:35 11:35 11:41 WBC (3.8-10.6) k/uL RBC (4.30-5.90) m/uL Hgb (13.0-17.5) gm/dL Hct (39.0-53.0) % MCV (80.0-100.0) fL MCH (25.0-35.0) pg MCHC (31.0-37.0) g/dL RDW (11.5-15.5) % Plt Count (150-450) k/uL MPV Neutrophils % % Lymphocytes % % Monocytes % % Eosinophils % % Basophils % % Neutrophils # (1.3-7.7) k/uL Lymphocytes # (1.0-4.8) k/uL Monocytes # (0-1.0) k/uL Eosinophils # (0-0.7) k/uL Basophils # (0-0.2) k/uL Manual Slide Review Anisocytosis Macrocytosis PT (10.0-12.5) sec INR (<1.2) APTT (22.0-30.0) sec Sodium 139 (137-145) mmol/L Potassium 3.7 (3.5-5.1) mmol/L Chloride 103 (98-107) mmol/L Carbon Dioxide 30 (22-30) mmol/L Anion Gap 6 mmol/L BUN 14 (9-20) mg/dL Creatinine 0.51 L (0.66-1.25) mg/dL Est GFR (CKD-EPI)AfAm >90 (>60 ml/min/1.73 sqM) Est GFR (CKD-EPI)NonAf >90 (>60 ml/min/1.73 sqM) Glucose 162 H (74-99) mg/dL Plasma Lactic Acid Matty 1.2 (0.7-2.0) mmol/L Calcium 8.4 (8.4-10.2) mg/dL Phosphorus 3.6 (2.5-4.5) mg/dL Magnesium 1.9 (1.6-2.3) mg/dL Total Bilirubin 1.0 (0.2-1.3) mg/dL AST 21 (17-59) U/L ALT 14 (4-49) U/L Alkaline Phosphatase 61 (38-126) U/L Creatine Kinase 53 L (55-170) U/L Troponin I <0.012 (0.000-0.034) ng/mL Total Protein 5.4 L (6.3-8.2) g/dL Albumin 3.2 L (3.5-5.0) g/dL Urine Color Urine Appearance (Clear) Urine pH (5.0-8.0) Ur Specific [place] (1.001-1.035) Urine Protein (Negative) Urine Glucose (UA) (Negative) Urine Ketones (Negative) Urine Blood (Negative) Urine Nitrite (Negative) Urine Bilirubin (Negative) Urine Urobilinogen (<2.0) mg/dL Ur Leukocyte Esterase (Negative) - Radiology Data Radiology results: report reviewed, image reviewed Disposition Clinical Impression: Fall, Head injury, Weakness Disposition: HOME SELF-CARE Instructions (If sedation given, give patient instructions): Fall Prevention for Older Adults (ED) Additional Instructions: Return to the emergency department with any new, worsening, or concerning symptoms. Follow up with your primary care provider in 1-2 days. Is patient prescribed a controlled substance at d/c from ED?: No Referrals: [facility] [NON-STAFF] - 1-2 days Catherine Barry MD [Primary Care Provider] - 1-2 days Forms: Community Resources, [employer]
[2024-05-19 12:01] LABS: Anisocytosis Slight; Basophils % (A) 0 %; Eosinophils % (A) 1 %; HCT 29.1 % (39.0-53.0); HGB 9.9 gm/dL (13.0-17.5); Lymphocytes # (A) 0.8 k/uL (1.0-4.8); Lymphocytes % (A) 13 %; MCHC 34.1 g/dL (31.0-37.0); MCV 133.4 fL (80.0-100.0); Macrocytosis Marked; Mean Platelet Volume 8.9; Monocytes # (A) 0.2 k/uL (0-1.0); Monocytes % (A) 3 %; Neutrophils # (A) 5.2 k/uL (1.3-7.7); Neutrophils % (A) 83 %; Platelet Count 248 k/uL (150-450); RBC 2.18 m/uL (4.30-5.90); RDW 16.8 % (11.5-15.5); WBC 6.3 k/uL (3.8-10.6)
[2024-05-19 12:02] LABS: MCH 45.5 pg (25.0-35.0)
--- NOTE | 2024-05-19 12:12 | CT ---
EXAMINATION TYPE: CT brain rachel gonzalez con DATE OF EXAM: 05/19/2024 COMPARISON: CT brain dated 02/06/[address] brain and C-spine dated 07/07/2022 HISTORY: POSSIBLE FALL CT DLP: 1234.1 mGycm Automated exposure control for dose reduction was used. TECHNIQUE: CT scan of the head and cervical spine are performed without contrast. FINDINGS Findings: Head CT: Ventricles, basal cisterns and sulci over convexities within normal limits for the patient's age and there is no mass, mass effect or shift of midline structures. No abnormal density is seen throughout the brain parenchyma and there is no acute intra or extra-axia l hemorrhage. Posterior fossa including the brainstem, fourth ventricle and cerebellar pontine angles are grossly n ormal. The intraorbital contents appear normal and symmetric. Chronic inflammatory changes in the ethmoid si nuses and left maxillary sinus. CT cervical spine: Craniovertebral junction relationships and prevertebral soft tissues are normal. The cervical vertebral segments are normal in height and alignment and there is no fracture subluxati on. There is moderate to marked disc space narrowing and spondylosis at the C3/C4 level. There is moderat e osteoarthritis of the uncovertebral joints at the C3-4 level. The facet joints are intact. There is no bony compromise of the cervical spinal canal. There is severe bony neural foraminal encro achment at C3-4 bilaterally. The paraspinal soft tissues unremarkable. IMPRESSION: 1. Head CT: No acute bleed or mass effect. 2. CT cervical spine: No acute trauma. Degenerative disc disease and osteoarthritis at the C3-4 level s as described above. [facility], Workstation: [facility] 05/19/2024 12:10 PM
--- NOTE | 2024-05-19 12:26 | XR ---
EXAMINATION TYPE: XR chest 2V DATE OF EXAM: 05/19/2024 COMPARISON: 04/18/2024 HISTORY: Weakness TECHNIQUE: Frontal and lateral views of the chest are obtained. FINDINGS: There is no focal air space opacity, pleural effusion, or pneumothorax seen. The cardiac silhouette size is within normal limits. The osseous structures are intact. IMPRESSION: No acute cardiopulmonary process. [facility], , 05/19/2024 12:24 PM
--- NOTE | 2024-05-19 12:29 | XR ---
Lumbar spine HISTORY: Fall. COMPARISON: 04/19/2024. TECHNIQUE: 3 views of the lumbar spine were obtained. FINDINGS: The lumbar vertebral segments are normal in height and alignment and there is no fracture or subluxat ion. The disc spaces are well preserved. There is mild spondylosis indicating mild degenerative disea se. There is minimal facet degeneration. IMPRESSION: 1. No acute trauma. 2. Mild degenerative changes described above. [facility], , 05/19/2024 12:26 PM
[2024-05-19 12:34] LABS: ALT 14 U/L (4-49); AST 21 U/L (17-59); African American GFR (CKD) >90 (>60 ml/min/1.73 sqM); Albumin 3.2 g/dL (3.5-5.0); Alkaline Phosphatase 61 U/L (38-126); Anion Gap 6 mmol/L; Blood Urea Nitrogen 14 mg/dL (9-20); Calcium 8.4 mg/dL (8.4-10.2); Carbon Dioxide 30 mmol/L (22-30); Chloride 103 mmol/L (98-107); Creatine Kinase 53 U/L (55-170); Glucose 162 mg/dL (74-99); Magnesium 1.9 mg/dL (1.6-2.3); Non-African American GFR(CKD) >90 (>60 ml/min/1.73 sqM); Phosphorus 3.6 mg/dL (2.5-4.5); Potassium 3.7 mmol/L (3.5-5.1); Sodium 139 mmol/L (137-145); Total Protein 5.4 g/dL (6.3-8.2)
--- NOTE | 2024-05-19 13:12 | XR ---
EXAMINATION TYPE: XR pelvis AP view DATE OF EXAM: 05/19/2024 12:21 PM CLINICAL INDICATION: Male, 68 years old with history of Fall; H COMPARISON: None TECHNIQUE: XR pelvis AP view, examined in a single projection. FINDINGS: There is no evidence of fracture or dislocation. There is no soft tissue abnormality. No a bnormal calcifications are present. The spine appears intact. Bilateral hip arthroplasties appear int act. Mild degeneration changes of the lower spine. IMPRESSION: 1. No acute osseous pathology. 2. Bilateral hip arthroplasties without evidence of fracture. [facility], , 05/19/2024 1:10 PM
[2024-05-19 14:11] LABS: Appearance,Urine Clear (Clear); Bilirubin,Urine Negative (Negative); Blood,Urine Negative (Negative); Color,Urine Light Yellow; Glucose,Urine (UA) Negative (Negative); Ketones,Urine Negative (Negative); Leukocyte Esterase,Urine Negative (Negative); Nitrite,Urine Negative (Negative); Protein,Urine Negative (Negative); Specific Gravity,Urine 1.013 (1.001-1.035); Urobilinogen,Urine <2.0 mg/dL (<2.0)
[2024-05-19 15:27] VITALS: BP 132/84; PULSE 78
== END 2024-05-19 15:27 | disposition home or self-care (01) ==
LOC: EC 11:01
CPT/HCPCS: 36415; 70450; 71046; 72100; 72125; 72170; 80053; 81003; 82550; 83605; 83735; 84100; 84484; 85025; 85610; 85730; 93005; 96374; 99285

== ENCOUNTER 2024-05-20 17:36 | Inpatient (IN) | payer MEDICARE, OTHER ==
--- NOTE | 2024-05-20 18:09 | ED ---
Fall HPI - General Chief Complaint: Fall Stated Complaint: Fall Time Seen by Provider: 05/20/24 17:44 Source: patient, EMS, RN notes reviewed Mode of arrival: EMS Limitations: physical limitation - History of Present Illness Initial Comments: 68-year-old male presented to the ER via EMS with a chief complaint of a fall and weakness. Patient states he lives home alone and has difficulty ambulating around his home for the past 3 to 4 days. 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 He states he typically is able to ambulate with a cane but has recently been using a walker as he feels his right leg is extremely weak. He states while rolling out of bed this morning he went to stand up using his walker and lost his balance causing him to fall. He denies any head injury. He does not believe he is on any blood thinning medications. He states he has not been eating as he is having financial and transportation issues. Patient does report he has limited social support with family and friends. He would like to enter rehab but is having difficulty due to financial hardships. He does report a history of chronic back pain. He denies any saddle paresthesias, bowel or bladder incontinence. He is reporting a current headache. No other complaints. Patient denies any fevers, chills, nausea, vomiting, chest pain, shortness of breath, abdominal pain, constipation/diarrhea or urinary complaints. - Related Data Home Medications Medication Instructions Recorded Confirmed Albuterol Sulfate [Albuterol 1 - 2 puff PO RT-Q4H PRN 05/19/24 05/20/24 Sulfate Hfa] Ergocalciferol [Vitamin D2 (1250 1,250 mcg PO WEEKLY 05/19/24 05/20/24 Mcg = 01656 Iu)] Insulin Degludec [Tresiba] 35 units SQ DAILY 05/19/24 05/20/24 Montelukast [Singulair] 10 mg PO HS 05/19/24 05/20/24 lisinopriL [Prinivil] 20 mg PO DAILY 05/19/24 05/20/24 Previous Rx's Medication Instructions Recorded Atorvastatin [Lipitor] 10 mg PO DAILY 30 Days #30 tab 04/21/24 Pantoprazole [Protonix] 40 mg PO DAILY 30 Days #30 tab 04/21/24 carvediloL [Coreg] 3.125 mg PO BID-W/MEALS 30 Days 04/21/24 #60 tab Allergies Allergy/AdvReac Type Severity Reaction Status Date / Time No Known Allergies Allergy Verified 05/20/24 18:59 Review of Systems ROS Statement: Those systems with pertinent positive or pertinent negative responses have been documented in the HPI. ROS Other: All systems not noted in ROS Statement are negative. Past Medical History Past Medical History: Asthma, COPD, CVA/TIA, Diabetes Mellitus, Hearing Disorder / Deafness, Hyperlipidemia, Hypertension, Osteoarthritis (OA), Skin Disorder Additional Past Medical History / Comment(s): DM type II, arthritis in multiple joints, psoriasis, vitiligo, [place]KA, hx of feeling lightheaded and falls., CVA- states left arm weak-unable to lift or reach far-unable to grasp with left hand , weakness left leg and states left foot drops down and catches on everything., uses wheelchair and cane., lower back and left hip pain, left arm fracture. History of Any Multi-Drug Resistant Organisms: None Reported Past Surgical History: Heart Catheterization, Joint Replacement Additional Past Surgical History / Comment(s): Bilateral hip replacements Past Anesthesia/Blood Transfusion Reactions: No Reported Reaction Additional Past Anesthesia/Blood Transfusion Reaction / Comment(s): pt states was unable to receive spinal tap with last surgery d/t arthritis in back, received general anesthetic" Past Psychological History: Depression Smoking Status: Former smoker Past Alcohol Use History: None Reported Past Drug Use History: Marijuana - Past Family History Mother Family Medical History: Eye Disorder, Hearing Disorder / Deafness Additional Family Medical History / Comment(s): Father passed at 93yrs old. He had glaucoma and [place]. General Exam Limitations: no limitations (Patient smells of urine. Patient did have maggots on back) General appearance: alert, in no apparent distress, lethargic Head exam: Present: atraumatic, normocephalic, normal inspection Eye exam: Present: normal appearance, PERRL, EOMI. Absent: scleral icterus, conjunctival injection, periorbital swelling ENT exam: Present: normal exam, mucous membranes moist Respiratory exam: Present: decreased breath sounds (bilaterally) Cardiovascular Exam: Present: regular rate, normal rhythm, normal heart sounds. Absent: systolic murmur, diastolic murmur, rubs, gallop, clicks GI/Abdominal exam: Present: soft, normal bowel sounds. Absent: distended, t enderness, guarding, rebound, rigid Neurological exam: Present: alert, oriented X3, CN II-XII intact Skin exam: Present: warm, dry, intact, normal color. Absent: rash Course Vital Signs 05/20/24 17:38 Temperature 98.1 F Pulse Rate 74 Respiratory 18 Rate Blood Pressure 134/72 O2 Sat by Pulse 100 Oximetry - Reevaluation(s) Reevaluation #1: 05/20/24 20:[address] Barry for admission. Medical Decision Making - Medical Decision Making Was pt. sent in by a medical professional or institution (, PA, FUNDRAISING ASSISTANT, urgent care, hospital, or group home...) When possible be specific @ -No Did you speak to anyone other than the patient for history (EMS, parent, family, police, friend...)? What history was obtained from this source @ -No Did you review nursing and triage notes (agree or disagree)? Why? @ -I reviewed and agree with nursing and triage notes Were old charts reviewed (outside hosp., previous admission, EMS record, old EKG, old radiological studies, urgent care reports/EKG's, group home records)? Report findings @ -Yes, I reviewed ER visit from 05-19-2024. Patient seen here from a fall and weakness. Laboratory studies and imaging completed at that time were negative. Admission was offered to patient who refused and would like to be discharged ho me. Differential Diagnosis (chest pain, altered mental status, abdominal pain women, abdominal pain men, vaginal bleeding, weakness, fever, dyspnea, syncope, headache, dizziness, GI bleed, back pain, seizure, CVA, palpatations, mental health, musculoskeletal)? @ -Differential Weakness: Hypoglycemia, shock, sepsis, hyponatremia, anemia, infection, [place], ETOH, adverse medicine reaction, overdose, stroke, this is not meant to be an all-inclusive list. EKG interpreted by me (3pts min.). @ -As above X-rays interpreted by me (1pt min.). @ -Left ribs x-ray interpreted me negative for acute process. Chest x-ray negative for acute cardiopulmonary process. CT interpreted by me (1pt min.). @ -CT brain negative for acute intracranial process. U/S interpreted by me (1pt. min.). @ -None done What testing was considered but not performed or refused? (CT, X-rays, U/S, labs)? Why? @ -None What meds were considered but not given or refused? Why? @ -None Did you discuss the management of the patient with other professionals (professionals i.e. , PA, FUNDRAISING ASSISTANT, lab, RT, psych nurse, neonatal social worker, marine mechanic, teacher, safety instruction police officer, casework specialist)? Give summary @ -Yes, case discussed with Dr. Barry for admission. Was smoking cessation discussed for >3mins.? @ -No Was critical care preformed (if so, how long)? @ -No Were there social determinants of health that impacted care today? How? (Homeles sness, low income, unemployed, alcoholism, drug addiction, transportation, low edu. Level, literacy, decrease access to med. care, halfway, rehab)? @ -Yes, patient is having a financial hardship and is unable to afford food. He also was having difficulties with transportation and getting to the grocery store to obtain food. Was there de-escalation of care discussed even if they declined (Discuss DNR or withdrawal of care, Hospice)? DNR status @ -No What co-morbidities impacted this encounter? (DM, HTN, Smoking, COPD, CAD, Cancer, CVA, ARF, Chemo, Hep., AIDS, mental health diagnosis, sleep apnea, morbid obesity)? @ -Diabetes, hypertension, hyperlipidemia, CVA with residual left-sided weakness, COPD Was patient admitted / discharged? Hospital course, mention meds given and route, prescriptions, significant lab abnormalities, going to OR and other pertinent info. @ -Admitted. 68-year-old male presented to the ER with a chief complaint of a fall and weakness. Patient was seen here yesterday for similar complaint admission was offered at that time patient refused and would like to be discharged. History and physical exam completed. Vitals within normal limits. Patient is weak appearing on exam. Patient is unkept and smelling of urine on exam. Patient reporting a headache and left lateral rib discomfort from fall today. Laboratory studies obtained appear to be at patient's baseline. Macrocytic hyperchromic anemia hemoglobin 10.4 which appears to be at patient's baseline. CMP unremarkable. Viral swabs negative. Urine analysis pending at time of admission. Imaging completed today negative. Patient refused p.o. Tylenol for pain control in the ER. Admission considered due to multiple falls and weakness. Patient is agreeable for rehab placement at this time. I discussed admission with Dr. Barry who accepts. Patient will be admitted for further evaluation and treatment with possible rehab placement. Patient is agreeable. Patient admitted in stable condition. Case discussed with the attending of Dr. Jasso. Undiagnosed new problem with uncertain prognosis? @ -No Drug Therapy requiring intensive monitoring for toxicity (Heparin, Nitro, Insulin, Cardizem)? @ -No Were any procedures done? @ -No Diagnosis/symptom? @ -Multiple falls/weakness Acute, or Chronic, or Acute on Chronic? @ -Acute Uncomplicated (without systemic symptoms) or Complicated (systemic symptoms)? @ -Complicated Side effects of treatment? @ -No Exacerbation, Progression, or Severe Exacerbation? @ -No Poses a threat to life or bodily function? How? (Chest pain, [place], [place], pneumonia, PE, COPD, DKA, ARF, appy, cholecystitis, CVA, Diverticulitis, Homicidal, Suicidal, threat to staff... and all critical care pts) @ -Yes, multiple falls can lead to injuries which can be life-threatening - Lab Data Result diagrams: 05/20/24 18:25 05/20/24 18:25 Lab Results 05/20/24 05/20/24 05/20/24 Range/Units 18:25 18:25 19:10 WBC 5.9 (3.8-10.6) k/uL RBC 2.32 L (4.30-5.90) m/uL Hgb 10.4 L (13.0-17.5) gm/dL Hct 30.7 L (39.0-53.0) % MCV 132.4 H (80.0-100.0) fL MCH 44.6 H (25.0-35.0) pg MCHC 33.7 (31.0-37.0) g/dL RDW 17.2 H (11.5-15.5) % Plt Count 252 (150-450) k/uL MPV 9.1 Neutrophils % 79 % Lymphocytes % 15 % Monocytes % 3 % Eosinophils % 1 % Basophils % 0 % Neutrophils # 4.7 (1.3-7.7) k/uL Lymphocytes # 0.9 L (1.0-4.8) k/uL Monocytes # 0.2 (0-1.0) k/uL Eosinophils # 0.1 (0-0.7) k/uL Basophils # 0.0 (0-0.2) k/uL Manual Slide Review Performed Hypersegmented Neuts Present Anisocytosis Slight Macrocytosis Marked A Sodium 139 (137-145) mmol/L Potassium 4.0 (3.5-5.1) mmol/L Chloride 106 (98-107) mmol/L Carbon Dioxide 30 (22-30) mmol/L Anion Gap 3 mmol/L BUN 11 (9-20) mg/dL Creatinine 0.42 L (0.66-1.25) mg/dL Est GFR (CKD-EPI)AfAm >90 (>60 ml/min/1.73 sqM) Est GFR (CKD-EPI)NonAf >90 (>60 ml/min/1.73 sqM) Glucose 106 H (74-99) mg/dL Calcium 8.5 (8.4-10.2) mg/dL Phosphorus 3.6 (2.5-4.5) mg/dL Magnesium 1.9 (1.6-2.3) mg/dL Total Bilirubin 1.2 (0.2-1.3) mg/dL AST 32 (17-59) U/L ALT 14 (4-49) U/L Alkaline Phosphatase 60 (38-126) U/L Total Protein 5.6 L (6.3-8.2) g/dL Albumin 3.3 L (3.5-5.0) g/dL Influenza Type A (PCR) Not Detected (Not Detectd) Influenza Type B (PCR) Not Detected (Not Detectd) RSV (PCR) Not Detected (Not Detectd) SARS-CoV-2 (PCR) Not Detected (Not Detectd) - EKG Data -: EKG Interpreted by Me EKG Comments: EKG taken at 18: 09 showing a normal sinus rhythm no acute ST segment elevations or depressions. No T wave abnormalities. Normal axis. Ventricular rate 66, DE interval 148, QRS duration 82, QT/QTc 393/407. - Radiology Data Radiology results: report reviewed, image reviewed Disposition Clinical Impression: Multiple falls, Weakness Disposition: ADMITTED IP TO THIS HOSP Condition: Stable Referrals: Catherine Barry MD [Primary Care Provider] - 1-2 days Time of Disposition: 20:27
[2024-05-20 18:57] LABS: Anisocytosis Slight; Basophils % (A) 0 %; Eosinophils # (A) 0.1 k/uL (0-0.7); Eosinophils % (A) 1 %; HCT 30.7 % (39.0-53.0); HGB 10.4 gm/dL (13.0-17.5); Lymphocytes # (A) 0.9 k/uL (1.0-4.8); Lymphocytes % (A) 15 %; MCHC 33.7 g/dL (31.0-37.0); MCV 132.4 fL (80.0-100.0); Macrocytosis Marked; Mean Platelet Volume 9.1; Monocytes # (A) 0.2 k/uL (0-1.0); Monocytes % (A) 3 %; Neutrophils # (A) 4.7 k/uL (1.3-7.7); Neutrophils % (A) 79 %; Platelet Count 252 k/uL (150-450); RBC 2.32 m/uL (4.30-5.90); RDW 17.2 % (11.5-15.5); WBC 5.9 k/uL (3.8-10.6)
[2024-05-20 18:59] LABS: ALT 14 U/L (4-49); African American GFR (CKD) >90 (>60 ml/min/1.73 sqM); Albumin 3.3 g/dL (3.5-5.0); Anion Gap 3 mmol/L; Blood Urea Nitrogen 11 mg/dL (9-20); Calcium 8.5 mg/dL (8.4-10.2); Carbon Dioxide 30 mmol/L (22-30); Chloride 106 mmol/L (98-107); Glucose 106 mg/dL (74-99); Non-African American GFR(CKD) >90 (>60 ml/min/1.73 sqM); Sodium 139 mmol/L (137-145); Total Bilirubin 1.2 mg/dL (0.2-1.3); Total Protein 5.6 g/dL (6.3-8.2)
[2024-05-20 19:00] LABS: AST 32 U/L (17-59); Alkaline Phosphatase 60 U/L (38-126); MCH 44.6 pg (25.0-35.0); Magnesium 1.9 mg/dL (1.6-2.3); Phosphorus 3.6 mg/dL (2.5-4.5)
[2024-05-20] MEDS: ACETAMINOPHEN TAB 325 MG TAB PO STA (19:00)
[2024-05-20] MEDS: SODIUM CHLORIDE 0.9% 1,000 ML IV STA (19:04)
--- NOTE | 2024-05-20 19:04 | XR ---
EXAMINATION TYPE: XR chest 2V DATE OF EXAM: 05/20/2024 COMPARISON: None INDICATION: Fall, pain TECHNIQUE: Frontal and lateral views of the chest are obtained. FINDINGS: The heart size is normal. The pulmonary vasculature is normal. The lungs are clear. No pneumothorax is evident. No acute osseous abnormality is evident. IMPRESSION: 1. No acute pulmonary process. [facility], Workstation: [facility], 05/20/2024 7:02 PM
--- NOTE | 2024-05-20 19:04 | XR ---
EXAMINATION TYPE: XR ribs LT DATE OF EXAM: 05/20/2024 COMPARISON: None HISTORY: Fall, pain TECHNIQUE: 2 view left RIBS FINDINGS: No acute fractures evident left ribs. No pneumothorax is evident on these images. Follow up exams can be performed as clinically indicated. IMPRESSION: 1. No acute left rib fractures identified [facility], Workstation: [email or web address], 05/20/2024 7:01 PM
--- NOTE | 2024-05-20 19:07 | CT ---
EXAMINATION TYPE: CT brain wo con DATE OF EXAM: 05/20/2024 COMPARISON: None INDICATION: AMS, weakness DLP: 1158.4 mGycm, Automated exposure control for dose reduction was used. CONTRAST: None CT of the brain is performed utilizing 3 mm thick sections through the posterior fossa and 3 mm thick sections through the remaining calvarium. Study is performed within 24 hours of arrival to the hosp ital. No abnormal hyperdensity is present to suggest an acute intracranial hemorrhage. No mass lesion is evident. No acute infarcts are evident. Ventricles and sulci are appropriate for the patient age. There is an air-fluid level within the left maxillary sinus. Correlate for acute sinusitis. Additiona l mucosal thickening is within scattered ethmoid air cells. Frontal sinus and sphenoid sinuses are cl ear. Right maxillary sinus is clear as visualized. Mastoid air cells are clear. IMPRESSION: 1. No acute intracranial process. Follow up MRI can be performed as clinically indicated. 2. Clinical correlation recommended for acute left maxillary sinusitis. [facility], Workstation: [facility], 05/20/2024 7:05 PM
[2024-05-20 19:19] LABS: Hypersegmented Neutrophils Present
[2024-05-20] MEDS ORDERED: DEXTROSE 50% SYRINGE 50 ML IVP PRN ×2 (20:02)
[2024-05-20] MEDS ORDERED: NALOXONE 0.4 MG/ML 1 ML VIAL IV PRN (20:24)
[2024-05-20] MEDS ORDERED: ACETAMINOPHEN TAB 325 MG TAB PO PRN (20:24)
[2024-05-20] MEDS: SODIUM CHLORIDE 0.9% 1,000 ML IV SCH (21:04)
[2024-05-20 21:49] LABS: Appearance,Urine Clear (Clear); Bilirubin,Urine Negative (Negative); Blood,Urine Negative (Negative); Color,Urine Colorless; Glucose,Urine (UA) Negative (Negative); Ketones,Urine Negative (Negative); Leukocyte Esterase,Urine Negative (Negative); Nitrite,Urine Negative (Negative); PH, Urine 6.5 (5.0-8.0); Protein,Urine Negative (Negative); Specific Gravity,Urine 1.008 (1.001-1.035); Urobilinogen,Urine <2.0 mg/dL (<2.0)
[2024-05-21 00:04] LABS: Glucose,Whole Blood 223 mg/dL (70-110)
[2024-05-21] MEDS: HYDROmorphone 0.5 MG/0.5 ML SYRINGE IVP PRN (00:41)
[2024-05-21 07:17] LABS: Glucose,Whole Blood 131 mg/dL (70-110)
[2024-05-21] MEDS: INSULIN ASPART (NovoLOG) 100 UNIT/ML VIAL SQ SCH ×3 (07:48→17:32)
[2024-05-21] MEDS ORDERED: ALBUTEROL NEBULIZED 2.5 MG/3 ML INHALATION PRN (08:42)
[2024-05-21] MEDS: ATORVASTATIN 10 MG TAB PO SCH (09:20)
[2024-05-21] MEDS: INSULIN DETEMIR (LEVEMIR) 100 UNIT/ML SYR SQ SCH (09:20)
[2024-05-21] MEDS: lisinopriL 20 MG TAB PO SCH (09:20)
[2024-05-21] MEDS: PANTOPRAZOLE 40 MG TABLET PO SCH (09:20)
--- NOTE | 2024-05-21 09:31 | P.HPIM ---
History of Present Illness H&P Date: 05/21/24 Boaz Reed is a 68-year-old male patient who presented to the ER with concerns of increased falls and increased weakness over the past 3 to 4 days. Patient denies loss of consciousness. Patient was recently admitted due to concerns of rapid weight loss. EGD and colon colonoscopy were completed showing antral gastritis. Patient was discharged home but reports he continued to having increased weakness. Patient has a past medical history of asthma, COPD, CVA, diabetes mellitus, hyperlipidemia, hypertension, osteoarthritis and previous heart cath. Rib x-ray completed showing no acute fracture chest x-ray completed showing no acute pulmonary process. Head CT completed showing no acute intracranial process follow-up MRI can be performed to as Likely indicated. EKG showing sinus rhythm normal EKG lab work revealing normal UA negative influenza RSV and COVID-19. Creatinine 0.4-1 11 hemoglobin 10.4 and white blood cell 5.9. Patient denies any chest pain or shortness of breath. Pa tient denies nausea vomiting or diarrhea. Patient denies any urinary burning or frequency at this time patient will be admitted neurology services consulted social work PT and OT services consulted Review of Systems Please refer to HPI otherwise unremarkable Past Medical History Past Medical History: Asthma, COPD, CVA/TIA, Diabetes Mellitus, Hearing Disorder / Deafness, Hyperlipidemia, Hypertension, Osteoarthritis (OA), Skin Disorder Additional Past Medical History / Comment(s): DM type II, arthritis in multiple joints, psoriasis, vitiligo, [place], hx of feeling lightheaded and falls., CVA- states left arm weak-unable to lift or reach far-unable to grasp with left hand , weakness left leg and states left foot drops down and catches on everything., uses wheelchair and cane., lower back and left hip pain, left arm fracture, bad rotator cuffs bilaterally History of Any Multi-Drug Resistant Organisms: None Reported Past Surgical History: Heart Catheterization, Joint Replacement Additional Past Surgical History / Comment(s): Bilateral hip replacements Past Anesthesia/Blood Transfusion Reactions: No Reported Reaction Additional Past Anesthesia/Blood Transfusion Reaction / Comment(s): pt states was unable to receive spinal tap with last surgery d/t arthritis in back, rec eived general anesthetic" Smoking Status: Former smoker - Past Family History Mother Family Medical History: Eye Disorder, Hearing Disorder / Deafness Additional Family Medical History / Comment(s): Father passed at 93yrs old. He had glaucoma and [place]. Medications and Allergies Home Medications Medication Instructions Recorded Confirmed Type Atorvastatin [Lipitor] 10 mg PO DAILY 30 Days #30 tab 04/21/24 05/20/24 Rx Pantoprazole [Protonix] 40 mg PO DAILY 30 Days #30 tab 04/21/24 05/20/24 Rx carvediloL [Coreg] 3.125 mg PO BID-W/MEALS 30 Days 04/21/24 05/20/24 Rx #60 tab Albuterol Sulfate [Albuterol 1 - 2 puff PO RT-Q4H PRN 05/19/24 05/20/24 History Sulfate Hfa] Ergocalciferol [Vitamin D2 (1250 1,250 mcg PO WEEKLY 05/19/24 05/20/24 History Mcg = 20888 Iu)] Insulin Degludec [Tresiba] 35 units SQ DAILY 05/19/24 05/20/24 History Montelukast [Singulair] 10 mg PO HS 05/19/24 05/20/24 History lisinopriL [Prinivil] 20 mg PO DAILY 05/19/24 05/20/24 History Allergies Allergy/AdvReac Type Severity Reaction Status Date / Time No Known Allergies Allergy Verified 05/20/24 18:59 Physical Exam Vitals: Vital Signs Temp Pulse Pulse Resp BP BP BP 05/21/24 07:18 97.6 F 74 16 119/64 05/21/24 00:51 98.2 F 73 17 142/63 05/20/24 22:15 98.1 F 81 16 129/68 05/20/24 21:47 82 18 111/78 05/20/24 20:43 78 18 142/69 05/20/24 17:38 98.1 F 74 18 134/72 Pulse Ox 05/21/24 07:18 98 05/21/24 00:51 98 05/20/24 22:15 100 05/20/24 21:47 100 05/20/24 20:43 100 05/20/24 17:38 100 Intake and Output 05/20/24 05/21/24 05/21/24 22:59 06:59 14:59 Intake Total 240 500 240 Output Total 600 Balance 240 -100 240 Intake: Intake, IV Titration 500 Amount Sodium Chloride 0.9% 1, 500 000 ml @ 75 mls/hr IV . [id number] [facility] Rx#:[id number] Oral 240 240 Output: Urine 600 Other: Voiding Method Urinal Weight 58.967 kg 58.967 kg Head normocephalic Neck supple Lungs clear to auscultation bilaterally no wheezing or crackles Heart regular rate and rhythm S1-S2, no rub or gallop Abdomen is soft nontender nondistended positive bowel sounds no hepatosplenomeg tunde Extremities no edema Neuro alert and orientated to 3 Results CBC & Chem 7: 05/20/24 18:25 05/20/24 18:25 Labs: Abnormal Lab Results - Last 24 Hours (Table) 05/20/24 05/20/24 05/21/24 Range/Units 18:25 18:25 00:02 RBC 2.32 L (4.30-5.90) m/uL Hgb 10.4 L (13.0-17.5) gm/dL Hct 30.7 L (39.0-53.0) % MCV 132.4 H (80.0-100.0) fL MCH 44.6 H (25.0-35.0) pg RDW 17.2 H (11.5-15.5) % Lymphocytes # 0.9 L (1.0-4.8) k/uL Macrocytosis Marked A Creatinine 0.42 L (0.66-1.25) mg/dL Glucose 106 H (74-99) mg/dL POC Glucose (mg/dL) 223 H (70-110) mg/dL Total Protein 5.6 L (6.3-8.2) g/dL Albumin 3.3 L (3.5-5.0) g/dL 05/21/24 Range/Units 07:15 RBC (4.30-5.90) m/uL Hgb (13.0-17.5) gm/dL Hct (39.0-53.0) % MCV (80.0-100.0) fL MCH (25.0-35.0) pg RDW (11.5-15.5) % Lymphocytes # (1.0-4.8) k/uL Macrocytosis Creatinine (0.66-1.25) mg/dL Glucose (74-99) mg/dL POC Glucose (mg/dL) 131 H (70-110) mg/dL Total Protein (6.3-8.2) g/dL Albumin (3.5-5.0) g/dL Thrombosis Risk Factor Assmnt - Choose All That Apply Any of the Below Risk Factors Present?: Yes Each Factor Represents 1 point: Abnormal pulmonary function (COPD) Other Risk Factors: Yes Each Risk Factor Represents 2 Points: Age 61-74 years Thrombosis Risk Factor Assessment Total Risk Factor Score: 3 Thrombosis Risk Factor Assessment Level: Moderate Risk Assessment and Plan Assessment: 1. Generalized weakness with falls 2. Anemia 3. Weight loss. Patient recently underwent EGD and colonoscopy showing gastroenteritis 4. History of previous cardiac catheterization with stent placement in 2022 5. Hypothyroidism THS is slightly low at 0.460 6. History of essential hypertension 7. History of hyperlipidemia 8. History of diabetes mellitus 9. History of COPD 10. History of osteoarthritis 11. History of psoriasis DVT prophylaxis Lovenox. GI prophylaxis Protonix Neurology services consulted Repeat labs ordered PT OT and social work services consulted for discharge planning Time with Patient: Greater than 30 (Greater than 60% of the total time spent in counseling and coordination of care)
[2024-05-21 12:27] LABS: Glucose,Whole Blood 66 mg/dL (70-110)
[2024-05-21 12:46] LABS: Glucose,Whole Blood 61 mg/dL (70-110)
[2024-05-21 13:14] LABS: Glucose,Whole Blood 78 mg/dL (70-110)
[2024-05-21 15:31] LABS: Glucose,Whole Blood 106 mg/dL (70-110)
[2024-05-21 16:57] LABS: Glucose,Whole Blood 73 mg/dL (70-110)
[2024-05-21] MEDS: carvediloL 3.125 MG TAB PO SCH (18:41)
[2024-05-21 20:21] LABS: Glucose,Whole Blood 109 mg/dL (70-110)
[2024-05-21] MEDS: MONTELUKAST 10 MG TAB PO SCH (21:02)
--- NOTE | 2024-05-21 23:55 | P.CNNES ---
History of Present Illness Consult date: 05/21/24 Requesting physician: Catherine Barry Reason for Consult: Falls, dizziness History of Present Illness: Patient is a 68-year-old male with history of CVA with left hemiparesis, came to the hospital by ambulance yesterday at 5:36 PM for frequent falls. Patient states he has history of stroke, about one year ago, which affected his left side of the body, with residual deficits on the left side. Patient states that he was able to walk with a cane using in his right side. His right side used to be strong, and could manage with a cane. Patient believes that in the last 2-3 months, his right side is not as strong to get him up on feet. Patient states that he lives in a mobile home. He couldn't get walker or wheelchair in the RV. When he tries to walk, he'll fall. He couldn't get around in the mobile home. He has numbness of both hands up to the elbow. He says that he was diagnosed with carpal tunnel syndrome in the past. Also have numbness of his feet from toes up to the ankles bilaterally. He feels like his feet are numb and are always like cramped. He has a left foot drop, which throws his balance. He follows up with Dr. Rhoades for pain management. Patient has history of B12 deficiency, but currently not on B12. Patient states that his left arm is spastic and his left toe catches the in the foot drag. It throws of the balance and falls down. He also has lost 40 pounds because of lack of eating. He also states that he does not have much food at home. Patient also mentions that he has deterioration of the L5 6 disc, got worse to the point that he could walk. Patient denies any problems with bowel or bladder control, although this lately he has some leaking of urine. Patient says that he came because of fall, he came to the ER yesterday as well after a fall, but he was observed, head CT had of cervical spine in head, and then released. Now he came back with another fall. As per EMS flowsheet, when they arrived, patient was found laying on the floor in the back of a motor home. Patient states that he was using his walker and fell backwards. Patient was complaining of pain to his back. Patient denied any loss of consciousness or dizziness. Patient denies hitting his head. Patient was extricated using a [employer] office mover onto the stretcher. Patient is alert and orient x 4 with GCS of 15. Patient requires a walker to ambulate however the motor home is not accessible via walker. Patient states that he fell the day prior and was transported to [facility]. He was discharged the same day. Patient mentioned that he would like help to get stronger to be more independent. Patient's vitals at the scene was blood pressure 135/72, pulse rate 86, respirations 16 Blood test shows normal WBC hemoglobin 10.4 with elevated MCV 132.4. Platelets 252. CMP is normal. UA negative. Influenza, RSV and coronavirus PCR negative. Patient's previous B12 was 77 on 04/15/2020. Folic acid 17.9. Patient currently not on vitamin B12 replacement. Patient's hemoglobin A1c 7.1 on 04/18/2024. X-ray of the hip shows no fracture. Chest x-ray showed no acute pu lmonary process. CT head revealed no acute intracranial process. CT of the cervical spine showed no acute fracture. Degenerative disc disease and source of arthritis at the C3 4 levels. Patient has history of diabetes and hypertension. He smoked 1 pack per day for 5 years, quit in 1994. Denies any use of alcohol or marijuana. Review of Systems All review of systems pertinent positives and negatives mentioned in the HPI. Otherwise negative. Past Medical History Past Medical History: Asthma, COPD, CVA/TIA, Diabetes Mellitus, Hearing Disorder / Deafness, Hyperlipidemia, Hypertension, Osteoarthritis (OA), Skin Disorder Additional Past Medical History / Comment(s): DM type II, arthritis in multiple joints, psoriasis, vitiligo, [place], hx of feeling lightheaded and falls., CVA- states left arm weak-unable to lift or reach far-unable to grasp with left hand , weakness left leg and states left foot drops down and catches on everything., uses wheelchair and cane., lower back and left hip pain, left arm fracture, bad rotator cuffs bilaterally History of Any Multi-Drug Resistant Organisms: None Reported Past Surgical History: Heart Catheterization, Joint Replacement Additional Past Surgical History / Comment(s): Bilateral hip replacements Past Anesthesia/Blood Transfusion Reactions: No Reported Reaction Additional Past Anesthesia/Blood Transfusion Reaction / Comment(s): pt states was unable to receive spinal tap with last surgery d/t arthritis in back, received general anesthetic" Smoking Status: Former smoker - Past Family History Mother Family Medical History: Eye Disorder, Hearing Disorder / Deafness Additional Family Medical History / Comment(s): Father passed at 93yrs old. He had glaucoma and [place]. Medications and Allergies Home Medications Medication Instructions Recorded Confirmed Type Atorvastatin [Lipitor] 10 mg PO DAILY 30 Days #30 tab 04/21/24 05/20/24 Rx Pantoprazole [Protonix] 40 mg PO DAILY 30 Days #30 tab 04/21/24 05/20/24 Rx carvediloL [Coreg] 3.125 mg PO BID-W/MEALS 30 Days 04/21/24 05/20/24 Rx #60 tab Albuterol Sulfate [Albuterol 1 - 2 puff PO RT-Q4H PRN 05/19/24 05/20/24 History Sulfate Hfa] Ergocalciferol [Vitamin D2 (1250 1,250 mcg PO WEEKLY 05/19/24 05/20/24 History Mcg = 88450 Iu)] Insulin Degludec [Tresiba] 35 units SQ DAILY 05/19/24 05/20/24 History Montelukast [Singulair] 10 mg PO HS 05/19/24 05/20/24 History lisinopriL [Prinivil] 20 mg PO DAILY 05/19/24 05/20/24 History Allergies Allergy/AdvReac Type Severity Reaction Status Date / Time No Known Allergies Allergy Verified 05/20/24 18:59 Physical Examination - Vital Signs Vital Signs: Vital Signs Temp Pulse Pulse Resp BP BP BP 05/21/24 07:18 97.6 F 74 16 119/64 05/21/24 00:51 98.2 F 73 17 142/63 05/20/24 22:15 98.1 F 81 16 129/68 05/20/24 21:47 82 18 111/78 05/20/24 20:43 78 18 142/69 05/20/24 17:38 98.1 F 74 18 134/72 Pulse Ox 05/21/24 07:18 98 05/21/24 00:51 98 05/20/24 22:15 100 05/20/24 21:47 100 05/20/24 20:43 100 05/20/24 17:38 100 Intake and Output 05/20/24 05/21/24 05/21/24 22:59 06:59 14:59 Intake Total 240 500 240 Output Total 600 Balance 240 -100 240 Intake: Intake, IV Titration 500 Amount Sodium Chloride 0.9% 1, 500 000 ml @ 75 mls/hr IV . [id number] [facility] Rx#:[id number] Oral 240 240 Output: Urine 600 Other: Voiding Method Urinal Weight 58.967 kg 58.967 kg Patient is an elderly male, very pleasant, in no acute distress. Patient is alert awake oriented to time place and person. Patient knows it is May 2024 and that he is in [facility]. Speech and language functions are normal. Patient can name and repeat very well. No aphasia or dysarthria. Attention, concentration and fund of knowledge is adequate. On cranial nerve examination, pupils are equal, round and reacting to light, visual mayorga are full on confrontation, with no neglect on double simultaneous stimulation. Extraocular muscles are intact with no nystagmus. Patient has slight flattening of the left nasolabial fold. His tongue protrudes to the midline. Palatal elevation and sensation normal, hearing and shoulder shrug normal, facial sensation normal. On muscle strength testing, there is left pronator drift. Muscle strength is (right/left) deltoid 5-/1-2, biceps 5/4, triceps 5/4, inspector dials 5/4. In the lower limbs hip flexion 5-4+/3+3-, ankle dorsiflexion 5/1-2 Deep tendon reflexes are (right/left) biceps 2/3 brachioradialis 2/3, diminished in the lower limbs and plantars are possibly upgoing bilaterally. Sensory to touch is decreased sensation of the left leg as compared to the right. However in the hand, patient was noticing more numbness in the right hand. Cerebellar function showed no ataxia for [id number] testing on the right, cannot perform on the left. Patient has mild ataxia for hfil-gj-iefs testing on the right, cannot perform the left. Tone is increased on the left side and bulk of muscles decreased on the left side. Patient has mild atrophy of the interosseous muscles of the left hand. Gait deferred.. On general examination, there is no carotid bruit or murmur, S1-S2 audible. Chest is clear on consultation. Abdomen is soft nontender. No organomegaly, bowel sounds present. Peripheral pulses are present. No peripheral edema. Results - Laboratory Findings CBC and BMP: 05/20/24 18:25 05/20/24 18:25 Abnormal Lab Findings: Abnormal Labs 05/20/24 05/20/24 05/21/24 18:25 18:25 00:02 RBC 2.32 L Hgb 10.4 L Hct 30.7 L MCV 132.4 H MCH 44.6 H RDW 17.2 H Lymphocytes # 0.9 L Macrocytosis Marked A Creatinine 0.42 L Glucose 106 H POC Glucose (mg/dL) 223 H Total Protein 5.6 L Albumin 3.3 L 05/21/24 07:15 RBC Hgb Hct MCV MCH RDW Lymphocytes # Macrocytosis Creatinine Glucose POC Glucose (mg/dL) 131 H Total Protein Albumin Assessment and Plan Assessment: * 68-year-old male presenting with worsening balance for the last 2 months. Patient has history of CVA with residual left hemiparesis, which likely has contribution to impaired balance. Worsening of balance is of uncertain cause. Rule out B12/folate deficiency, rule out spinal stenosis. * History of B12 deficiency, currently not on replacement. * Macrocytic anemia, possible B12 deficiency * History of CVA, with residual left hemiparesis * Hypertension * Diabetes * Peripheral neuropathy, possibly related to diabetes, versus B12 deficiency * Hyperlipidemia * Left foot drop, related to CVA. Plan: * B12, folate, MMA * MRI of the cervical spine rule out spinal stenosis * Computed tomography scan showed no evidence of recent or remote stroke. * PT OT evaluate gait. * Hemoglobin A1c 7.1 on 04/18/2024. * Lipid panel with cholesterol 108, LDL 49, HDL 46, triglycerides 58 on 12/02/2023. No need to repeat. * TSH 0.460 and free T4 normal at 1.05. * Dr. Kareem Martinez will resume neurology service from the morning. * Thank you for the consult.
[2024-05-22 02:24] LABS: Glucose,Whole Blood 122 mg/dL (70-110)
[2024-05-22 07:33] LABS: Glucose,Whole Blood 139 mg/dL (70-110)
[2024-05-22 08:39] LABS: Basophils # (A) 0.01 X 10*3/uL (0.00-0.10); Basophils % (A) 0.2 %; Eosinophils # (A) 0.11 X 10*3/uL (0.04-0.35); Eosinophils % (A) 2.1 %; HCT 24.7 % (39.6-50.0); HGB 8.7 g/dL (13.0-17.0); Lymphocytes # (A) 1.31 X 10*3/uL (0.90-5.00); Lymphocytes % (A) 24.5 %; MCH 46.3 pg (27.0-32.0); MCHC 35.2 g/dL (32.0-37.0); MCV 131.4 FL (80.0-97.0); Mean Platelet Volume 10.9 FL (9.5-12.2); Monocytes # (A) 0.24 X 10*3/uL (0.20-1.00); Monocytes % (A) 4.5 %; NRBC Per 100 WBC 0 X 10*3/uL (0.00-0.01); Neutrophils # (A) 3.67 X 10*3/uL (1.80-7.70); Neutrophils % (A) 68.5 %; Platelet Count 199 X 10*3/uL (140-440); RBC 1.88 X 10*6/uL (4.40-5.60); RDW 14.8 % (11.5-14.5); WBC 5.35 X 10*3/uL (4.50-10.00)
[2024-05-22] MEDS: ENOXAPARIN 40 MG/0.4 ML SYRINGE SQ SCH (08:50)
[2024-05-22] MEDS: INSULIN DETEMIR (LEVEMIR) 100 UNIT/ML SYR SQ SCH (08:50)
[2024-05-22 11:05] LABS: ALT 12 U/L (10-49); AST 24 U/L (14-35); Albumin 3.3 g/dL (3.8-4.9); Albumin/Globulin Ratio 2.06 Ratio (1.60-3.17); Alkaline Phosphatase 61 U/L (41-126); Blood Urea Nitrogen 8.6 mg/dL (9.0-27.0); Calcium 8.2 mg/dL (8.7-10.3); Carbon Dioxide 24.6 mmol/L (21.6-31.8); Chloride 109 mmol/L (96-109); Globulin 1.6 g/dL (1.6-3.3); Glucose 120 mg/dL (70-110); Potassium 4.1 mmol/L (3.5-5.5); Sodium 143 mmol/L (135-145); Total Bilirubin 0.5 mg/dL (0.3-1.2); Total Protein 4.9 g/dL (6.2-8.2)
[2024-05-22 11:12] LABS: Vitamin B12 <150.0 pg/mL (200.0-944.0)
[2024-05-22 12:30] LABS: Glucose,Whole Blood 184 mg/dL (70-110)
[2024-05-22] MEDS: CYANOCOBALAMIN 1,000 MCG/ML 1 ML VIAL IM SCH (13:29)
[2024-05-22 13:38] VITALS: BMI 18.6
--- NOTE | 2024-05-22 16:36 | MR ---
EXAMINATION TYPE: MR cervical spine wo con DATE OF EXAM: 05/22/2024 3:53 PM CLINICAL INDICATION: Male, 68 years old with history of Frequent falls; PHH, COMPARISON: None. TECHNIQUE: Multi planar, multi sequence imaging was performed utilizing: T1-weighted, T2-weighted, an d turbo inversion recovery imaging of the cervical spine. IV Contrast: cc (none if empty) FINDINGS: Alignment: The cervical vertebral bodies have preserved heights. Alignment is within normal limits gi callie patient positioning. Bones: Multilevel disc space narrowing and osteophyte formation with facet and uncovertebral joint ar thropathy. Cord: Increased cord signal at level C3-C4, otherwise The spinal cord is unremarkable with regards to their signal intensity and morphology. Discs: Intervertebral disc signal is maintained. C2-C3: No significant disc pathology. The spinal canal is patent. No neural foraminal stenosis. C3-C4: A disc osteophyte complex is present with severe spinal canal stenosis. Bilateral facet and u ncovertebral joint arthropathy are present with moderate to severe left and moderate right neural for aminal stenosis. C4-C5: A disc osteophyte complex is present with mild spinal canal stenosis. Bilateral facet and unc overtebral joint arthropathy are present with moderate in no significant left neural foraminal stenos is. C5-C6: No significant disc pathology. The spinal canal is patent. Bilateral facet and uncovertebral joint arthropathy are present with mild bilateral neural foraminal stenosis. C6-C7: No significant disc pathology. The spinal canal is patent. Bilateral facet and uncovertebral joint arthropathy are present with mild bilateral neural foraminal stenosis. C7-T1: No significant disc pathology. The spinal canal is patent. Bilateral facet and uncovertebral joint arthropathy are present with mild bilateral neural foraminal stenosis. Other: None. IMPRESSION: 1. C3-C4 severe spinal canal stenosis with likely representing chronic change myelomalacia given lac k of edema. 2. Moderate degeneration changes at C3-C4 with moderate to severe left and moderate right neural for aminal stenosis. [facility], Workstation: [id number], 05/22/2024 4:34 PM
[2024-05-22 17:14] LABS: Glucose,Whole Blood 102 mg/dL (70-110)
--- NOTE | 2024-05-22 17:42 | P.PN ---
Subjective Progress Note Date: 05/22/24 I am seeing the patient for the first time during this admission. Please refer to Dr. Galloway's note for further details. Patient states he has history of stroke with residual left hemiparesis but states he is having worsening of left-sided weakness past few months. He does have left posterior neck pain. He felt today with therapy there is some improvement but not back to baseline. He is pending to have MRI of the cervical spine today. Objective - Vital Signs Vital signs: Vital Signs Temp 97.7 F 05/22/24 13:16 Pulse 69 05/22/24 13:16 Resp 16 05/22/24 13:16 BP 123/75 05/22/24 13:16 Pulse Ox 99 05/22/24 13:16 FiO2 Intake & Output 05/21/24 05/22/24 05/22/24 18:59 06:59 18:59 Intake Total 3060 825 1796 Output Total 1000 425 Balance 2060 400 1796 Weight 58.967 kg Intake: Intake, IV Titration 825 Amount Sodium Chloride 0.9% 1, 825 000 ml @ 75 mls/hr IV . [id number] [facility] Rx#:[id number] Oral 3060 1796 Output: Urine 1000 425 Other: Voiding Method Urinal # Voids 4 1 # Bowel Movements 1 3 - Exam General: Sitting up in a chair and does not appear in acute distress. Neuro: Patient is awake alert oriented to self place and time. Is following simple commands. No aphasia no neglect. Pupils are round equal reactive to light. Visual mayorga are full to confrontation. Patient has mild left lower facial weakness. No dysarthria. Motor patient has weakness in the left upper extremity and is 3-4 out of 5 while the right side the strength appears normal. - Labs CBC & Chem 7: 05/22/24 06:04 05/22/24 05:57 Labs: Abnormal Lab Results - Last 24 Hours (Table) 05/22/24 05/22/24 05/22/24 Range/Units 02:22 05:57 06:04 RBC 1.88 L (4.40-5.60) X 10*6/uL Hgb 8.7 L (13.0-17.0) g/dL Hct 24.7 L (39.6-50.0) % MCV 131.4 H (80.0-97.0) FL MCH 46.3 H (27.0-32.0) pg RDW 14.8 H (11.5-14.5) % BUN 8.6 L (9.0-27.0) mg/dL Creatinine 0.5 L (0.6-1.5) mg/dL Glucose 120 H (70-110) mg/dL POC Glucose (mg/dL) 122 H (70-110) mg/dL Calcium 8.2 L (8.7-10.3) mg/dL Total Protein 4.9 L (6.2-8.2) g/dL Albumin 3.3 L (3.8-4.9) g/dL Vitamin B12 <150.0 L (200.0-944.0) pg/mL 05/22/24 05/22/24 Range/Units 07:32 12:28 RBC (4.40-5.60) X 10*6/uL Hgb (13.0-17.0) g/dL Hct (39.6-50.0) % MCV (80.0-97.0) FL MCH (27.0-32.0) pg RDW (11.5-14.5) % BUN (9.0-27.0) mg/dL Creatinine (0.6-1.5) mg/dL Glucose (70-110) mg/dL POC Glucose (mg/dL) 139 H 184 H (70-110) mg/dL Calcium (8.7-10.3) mg/dL Total Protein (6.2-8.2) g/dL Albumin (3.8-4.9) g/dL Vitamin B12 (200.0-944.0) pg/mL Assessment and Plan Assessment: * 68-year-old male presenting with worsening balance for the last 2 months. Patient has history of CVA with residual left hemiparesis, which likely has contribution to impaired balance. Worsening of balance and weakness that baseline: Could be due to B12 deficiency and rule out cervcail severe spinal stenosis/myelopathy * History of B12 deficiency, currently not on replacement. And recent B12 continue to deficient <150 * Macrocytic anemia, possible B12 deficiency * History of CVA, with residual left hemiparesis * Hypertension * Diabetes * Peripheral neuropathy, possibly related to diabetes, versus B12 deficiency * Hyperlipidemia * Left foot drop, related to CVA. Plan: * B12 deficiency: Start the patient on vitamin B12 1000 mcg IM for 3 days. I recommend IM supplement as management since this seems ongoing issues and will defer frequency to primary attending. * Pending folate, MMA * MRI of the cervical spine rule out spinal stenosis: Pending * Computed tomography scan showed no evidence of recent or remote stroke. * PT OT evaluate gait. * Hemoglobin A1c 7.1 on 04/18/2024. * Lipid panel with cholesterol 108, LDL 49, HDL 46, triglycerides 58 on 12/02/2023. No need to repeat. * TSH 0.460 and free T4 normal at 1.05. ADDENDUM: MRI of the cervical spine is reported as C3-C4 severe spinal canal stenosis with likely representing chronic changes myelomalacia given lack of edema. Moderate degenerative changes at C3-C4 with moderate to severe left and moderate right neuroforaminal stenosis. I consulted orthopedic surgery team. Time with Patient: Less than 30
--- NOTE | 2024-05-22 19:30 | P.PN ---
Subjective Progress Note Date: 05/22/24 Boaz Reed is a 68-year-old male patient who presented to the ER with concerns of increased falls and increased weakness over the past 3 to 4 days. Patient denies loss of consciousness. Patient was recently admitted due to concerns of rapid weight loss. EGD and colon colonoscopy were completed showing antral gastritis. Patient was discharged home but reports he continued to having increased weakness. Patient has a past medical history of asthma, COPD, CVA, diabetes mellitus, hyperlipidemia, hypertension, osteoarthritis and previous heart cath. Rib x-ray completed showing no acute fracture chest x-ray completed showing no acute pulmonary process. Head CT completed showing no acute intracranial process follow-up MRI can be performed to as Likely indicated. EKG showing sinus rhythm normal EKG lab work revealing normal UA negative influenza RSV and COVID-19. Creatinine 0.4-1 11 hemoglobin 10.4 and white blood cell 5.9. Patient denies any chest pain or shortness of breath. Patient denies nausea vomiting or diarrhea. Patient denies any urinary burning or frequency at this time patient will be admitted neurology services consulted social work PT and OT services consulted On 05/22/2024 patient was seen and examined on the medical floor he is alert and oriented x 3 in no apparent distress he is complaining of generalized weakness with difficulty standing and walking otherwise he denies any complaints there is no fever or chills no headache or dizziness no chest pain no shortness of breath no cough no nausea or vomiting no abdominal pain no diarrhea no urinary symptoms. Input from neurology reviewed patient is receiving vitamin B12 supplements, will continue to follow closely Objective - Vital Signs Vital signs: Vital Signs Temp 98.5 F 05/22/24 07:28 Pulse 83 05/22/24 07:28 Resp 16 05/22/24 07:28 BP 137/74 05/22/24 07:28 Pulse Ox 99 05/22/24 07:28 FiO2 Intake & Output 05/21/24 05/22/24 05/22/24 18:59 06:59 18:59 Intake Total 3060 825 240 Output Total 1000 425 Balance 2060 400 240 Intake: Intake, IV Titration 825 Amount Sodium Chloride 0.9% 1, 825 000 ml @ 75 mls/hr IV . [id number] [facility] Rx#:[id number] Oral 3060 240 Output: Urine 1000 425 Other: Voiding Method Urinal # Voids 4 1 # Bowel Movements 1 - Labs CBC & Chem 7: 05/22/24 06:04 05/22/24 05:57 Labs: Abnormal Lab Results - Last 24 Hours (Table) 05/21/24 05/21/24 05/22/24 Range/Units 12:25 12:44 02:22 RBC (4.40-5.60) X 10*6/uL Hgb (13.0-17.0) g/dL Hct (39.6-50.0) % MCV (80.0-97.0) FL MCH (27.0-32.0) pg RDW (11.5-14.5) % POC Glucose (mg/dL) 66 L 61 L 122 H (70-110) mg/dL 05/22/24 05/22/24 Range/Units 06:04 07:32 RBC 1.88 L (4.40-5.60) X 10*6/uL Hgb 8.7 L (13.0-17.0) g/dL Hct 24.7 L (39.6-50.0) % MCV 131.4 H (80.0-97.0) FL MCH 46.3 H (27.0-32.0) pg RDW 14.8 H (11.5-14.5) % POC Glucose (mg/dL) 139 H (70-110) mg/dL Assessment and Plan Assessment: 1. Generalized weakness with falls 2. Anemia 3. Weight loss. Patient recently underwent EGD and colonoscopy showing gastroenteritis 4. History of previous cardiac catheterization with stent placement in 2022 5. Hypothyroidism THS is slightly low at 0.460 6. History of essential hypertension 7. History of hyperlipidemia 8. History of diabetes mellitus 9. History of COPD 10. History of osteoarthritis 11. History of psoriasis DVT prophylaxis Lovenox. GI prophylaxis Protonix Neurology services consulted Repeat labs ordered PT OT and social work services consulted for discharge planning
[2024-05-22 19:59] LABS: Glucose,Whole Blood 151 mg/dL (70-110)
[2024-05-23 07:43] LABS: Glucose,Whole Blood 115 mg/dL (70-110)
--- NOTE | 2024-05-23 09:26 | P.PN ---
Subjective Progress Note Date: 05/23/24 Boaz Reed is a 68-year-old male patient who presented to the ER with concerns of increased falls and increased weakness over the past 3 to 4 days. Patient denies loss of consciousness. Patient was recently admitted due to concerns of rapid weight loss. EGD and colon colonoscopy were completed showing antral gastritis. Patient was discharged home but reports he continued to having increased weakness. Patient has a past medical history of asthma, COPD, CVA, diabetes mellitus, hyperlipidemia, hypertension, osteoarthritis and previous heart cath. Rib x-ray completed showing no acute fracture chest x-ray completed showing no acute pulmonary process. Head CT completed showing no acute intracranial process follow-up MRI can be performed to as Likely indicated. EKG showing sinus rhythm normal EKG lab work revealing normal UA negative influenza RSV and COVID-19. Creatinine 0.4-1 11 hemoglobin 10.4 and white blood cell 5.9. Patient denies any chest pain or shortness of breath. Patient denies nausea vomiting or diarrhea. Patient denies any urinary burning or frequency at this time patient will be admitted neurology services consulted social work PT and OT services consulted On 05/22/2024 patient was seen and examined on the medical floor he is alert and oriented x 3 in no apparent distress he is complaining of generalized weakness with difficulty standing and walking otherwise he denies any complaints there is no fever or chills no headache or dizziness no chest pain no shortness of breath no cough no nausea or vomiting no abdominal pain no diarrhea no urinary symptoms. Input from neurology reviewed patient is receiving vitamin B12 supplements, will continue to follow closely On 05/23/2024 patient is alert and oriented x 3. Still complaining of some pain and weakness. Cervical spine MRI completed showing C3-C4 severe spinal canal stenosis moderate degenerative changes at C3-C4 to severe left and moderate right neural formational stenosis. Dr. Prajapati has been consulted for further evaluation. Current vital signs temp 98.0, heart rate 74, respiratory rate 16, blood pressure 135/75 with a pulse ox of 98% on room air. Patient denies chest pain or shortness of breath. Patient denies nausea vomiting or diarrhea. Patient denies any urinary burning or frequency Objective - Vital Signs Vital signs: Vital Signs Temp 98.0 F 05/23/24 01:16 Pulse 74 05/23/24 01:16 Resp 16 10/08/24 01:16 BP 135/75 05/23/24 01:16 Pulse Ox 98 05/23/24 01:16 FiO2 Intake & Output 05/22/24 05/23/24 05/23/24 18:59 06:59 18:59 Intake Total 2035 825 Output Total 50 Balance 2035 775 Weight 58.967 kg Intake: Intake, IV Titration 825 Amount Sodium Chloride 0.9% 1, 825 000 ml @ 75 mls/hr IV . [id number] [facility] Rx#:[id number] Oral 2035 Output: Urine 50 Other: Voiding Method Urinal # Voids 1 # Bowel Movements 3 - Exam Head normocephalic Neck supple Lungs clear to auscultation bilaterally no wheezing or crackles Heart regular rate and rhythm S1-S2, no rub or gallop Abdomen is soft nontender nondistended positive bowel sounds no hepatosplenomegaly Extremities no edema Neuro alert and orientated to 3 - Labs CBC & Chem 7: 05/22/24 06:04 05/22/24 05:57 Labs: Abnormal Lab Results - Last 24 Hours (Table) 05/22/24 05/22/24 05/22/24 Range/Units 05:57 12:28 19:54 BUN 8.6 L (9.0-27.0) mg/dL Creatinine 0.5 L (0.6-1.5) mg/dL Glucose 120 H (70-110) mg/dL POC Glucose (mg/dL) 184 H 151 H (70-110) mg/dL Calcium 8.2 L (8.7-10.3) mg/dL Total Protein 4.9 L (6.2-8.2) g/dL Albumin 3.3 L (3.8-4.9) g/dL Vitamin B12 <150.0 L (200.0-944.0) pg/mL 05/23/24 Range/Units 07:39 BUN (9.0-27.0) mg/dL Creatinine (0.6-1.5) mg/dL Glucose (70-110) mg/dL POC Glucose (mg/dL) 115 H (70-110) mg/dL Calcium (8.7-10.3) mg/dL Total Protein (6.2-8.2) g/dL Albumin (3.8-4.9) g/dL Vitamin B12 (200.0-944.0) pg/mL Assessment and Plan Assessment: 1. Generalized weakness with falls 2. Anemia 3. Weight loss. Patient recently underwent EGD and colonoscopy showing gastroenteritis 4. History of previous cardiac catheterization with stent placement in 2022 5. Hypothyroidism THS is slightly low at 0.460 6. History of essential hypertension 7. History of hyperlipidemia 8. History of diabetes mellitus 9. History of COPD 10. History of osteoarthritis 11. History of psoriasis 12. Cervical spine stenosis. Orthopedic services consulted DVT prophylaxis Lovenox. GI prophylaxis Protonix Neurology services consulted Repeat labs ordered PT OT and social work services consulted for discharge planning
[2024-05-23 12:09] LABS: Glucose,Whole Blood 137 mg/dL (70-110)
[2024-05-23 16:56] LABS: Glucose,Whole Blood 192 mg/dL (70-110)
[2024-05-23 20:17] LABS: Glucose,Whole Blood 249 mg/dL (70-110)
[2024-05-24 07:25] LABS: Glucose,Whole Blood 174 mg/dL (70-110)
[2024-05-24 10:52] LABS: Basophils # (A) 0.02 X 10*3/uL (0.00-0.10); Basophils % (A) 0.4 %; Eosinophils # (A) 0.11 X 10*3/uL (0.04-0.35); HCT 23.6 % (39.6-50.0); HGB 8.2 g/dL (13.0-17.0); Lymphocytes # (A) 1.51 X 10*3/uL (0.90-5.00); Lymphocytes % (A) 27.5 %; MCH 44.3 pg (27.0-32.0); MCHC 34.7 g/dL (32.0-37.0); MCV 127.6 FL (80.0-97.0); Mean Platelet Volume 11.2 FL (9.5-12.2); Monocytes # (A) 0.46 X 10*3/uL (0.20-1.00); Monocytes % (A) 8.4 %; NRBC Per 100 WBC 0 X 10*3/uL (0.00-0.01); Neutrophils % (A) 58.2 %; Platelet Count 178 X 10*3/uL (140-440); RBC 1.85 X 10*6/uL (4.40-5.60); RDW 13.8 % (11.5-14.5); WBC 5.49 X 10*3/uL (4.50-10.00)
[2024-05-24 11:09] LABS: ALT 9 U/L (10-49); AST 16 U/L (14-35); Albumin 3.2 g/dL (3.8-4.9); Albumin/Globulin Ratio 1.88 Ratio (1.60-3.17); Alkaline Phosphatase 54 U/L (41-126); Blood Urea Nitrogen 7.1 mg/dL (9.0-27.0); Calcium 8.1 mg/dL (8.7-10.3); Carbon Dioxide 26.8 mmol/L (21.6-31.8); Chloride 108 mmol/L (96-109); Globulin 1.7 g/dL (1.6-3.3); Glucose 192 mg/dL (70-110); Sodium 141 mmol/L (135-145); Total Bilirubin 0.3 mg/dL (0.3-1.2); Total Protein 4.9 g/dL (6.2-8.2)
[2024-05-24 12:27] LABS: Glucose,Whole Blood 198 mg/dL (70-110)
--- NOTE | 2024-05-24 12:47 | P.PN ---
Subjective Progress Note Date: 05/24/24 Boaz Reed is a 68-year-old male patient who presented to the ER with concerns of increased falls and increased weakness over the past 3 to 4 days. Patient denies loss of consciousness. Patient was recently admitted due to concerns of rapid weight loss. EGD and colon colonoscopy were completed showing antral gastritis. Patient was discharged home but reports he continued to having increased weakness. Patient has a past medical history of asthma, COPD, CVA, diabetes mellitus, hyperlipidemia, hypertension, osteoarthritis and previous heart cath. Rib x-ray completed showing no acute fracture chest x-ray completed showing no acute pulmonary process. Head CT completed showing no acute intracranial process follow-up MRI can be performed to as Likely indicated. EKG showing sinus rhythm normal EKG lab work revealing normal UA negative influenza RSV and COVID-19. Creatinine 0.4-1 11 hemoglobin 10.4 and white blood cell 5.9. Patient denies any chest pain or shortness of breath. Patient denies nausea vomiting or diarrhea. Patient denies any urinary burning or frequency at this time patient will be admitted neurology services consulted social work PT and OT services consulted On 05/22/2024 patient was seen and examined on the medical floor he is alert and oriented x 3 in no apparent distress he is complaining of generalized weakness with difficulty standing and walking otherwise he denies any complaints there is no fever or chills no headache or dizziness no chest pain no shortness of breath no cough no nausea or vomiting no abdominal pain no diarrhea no urinary symptoms. Input from neurology reviewed patient is receiving vitamin B12 supplements, will continue to follow closely On 05/23/2024 patient is alert and oriented x 3. Still complaining of some pain and weakness. Cervical spine MRI completed showing C3-C4 severe spinal canal stenosis moderate degenerative changes at C3-C4 to severe left and moderate right neural formational stenosis. Dr. Prajapati has been consulted for further evaluation. Current vital signs temp 98.0, heart rate 74, respiratory rate 16, blood pressure 135/75 with a pulse ox of 98% on room air. Patient denies chest pain or shortness of breath. Patient denies nausea vomiting or diarrhea. Patient denies any urinary burning or frequency On 05/24/2024 patient was seen and examined on the medical floor, he is alert and oriented x 3 in no apparent distress, he is still complaining of severe weakness, otherwise he denies any complaints there is no fever or chills no headache or dizziness, no chest pain no shortness of breath no cough no nausea or vomiting no abdominal pain no diarrhea and no urinary symptoms. Input from neurosurgery reviewed, plan is to proceed with cervical spine surgery tomorrow. Patient has previous cardiac history, will check echocardiogram and consult cardiology for surgical clearance. Objective - Vital Signs Vital signs: Vital Signs Temp 98.0 F 05/24/24 07:26 Pulse 62 05/24/24 07:26 Resp 17 05/24/24 07:26 BP 166/71 05/24/24 07:26 Pulse Ox 99 05/24/24 07:26 FiO2 Intake & Output 05/23/24 05/24/24 05/24/24 18:59 06:59 18:59 Intake Total 1438 240 Output Total 100 600 650 Balance 1338 -360 -650 Intake: Oral 1438 240 Output: Urine 100 600 650 Other: Voiding Method Urinal Urinal # Voids 2 # Bowel Movements 1 0 - Exam Head normocephalic Neck supple Lungs clear to auscultation bilaterally no wheezing or crackles Heart regular rate and rhythm S1-S2, no rub or gallop Abdomen is soft nontender nondistended positive bowel sounds no hepatosplenomegaly Extremities no edema Neuro alert and orientated to 3 - Labs CBC & Chem 7: 05/24/24 05:15 05/24/24 05:15 Labs: Abnormal Lab Results - Last 24 Hours (Table) 05/22/24 05/23/24 05/23/24 Range/Units 06:04 16:55 20:13 RBC (4.40-5.60) X 10*6/uL Hgb (13.0-17.0) g/dL Hct (39.6-50.0) % MCV (80.0-97.0) FL MCH (27.0-32.0) pg Immature Gran # (0.00-0.04) X 10*3/uL BUN (9.0-27.0) mg/dL Creatinine (0.6-1.5) mg/dL Glucose (70-110) mg/dL POC Glucose (mg/dL) 192 H 249 H (70-110) mg/dL Calcium (8.7-10.3) mg/dL ALT (10-49) U/L Total Protein (6.2-8.2) g/dL Albumin (3.8-4.9) g/dL Methylmalonic Acid >5.00 H (<0.40) umol/L 05/24/24 05/24/24 05/24/24 Range/Units 05:15 05:15 07:24 RBC 1.85 L (4.40-5.60) X 10*6/uL Hgb 8.2 L (13.0-17.0) g/dL Hct 23.6 L (39.6-50.0) % MCV 127.6 H (80.0-97.0) FL MCH 44.3 H (27.0-32.0) pg Immature Gran # 0.19 H (0.00-0.04) X 10*3/uL BUN 7.1 L (9.0-27.0) mg/dL Creatinine 0.5 L (0.6-1.5) mg/dL Glucose 192 H (70-110) mg/dL POC Glucose (mg/dL) 174 H (70-110) mg/dL Calcium 8.1 L (8.7-10.3) mg/dL ALT 9 L (10-49) U/L Total Protein 4.9 L (6.2-8.2) g/dL Albumin 3.2 L (3.8-4.9) g/dL Methylmalonic Acid (<0.40) umol/L 05/24/24 Range/Units 12:26 RBC (4.40-5.60) X 10*6/uL Hgb (13.0-17.0) g/dL Hct (39.6-50.0) % MCV (80.0-97.0) FL MCH (27.0-32.0) pg Immature Gran # (0.00-0.04) X 10*3/uL BUN (9.0-27.0) mg/dL Creatinine (0.6-1.5) mg/dL Glucose (70-110) mg/dL POC Glucose (mg/dL) 198 H (70-110) mg/dL Calcium (8.7-10.3) mg/dL ALT (10-49) U/L Total Protein (6.2-8.2) g/dL Albumin (3.8-4.9) g/dL Methylmalonic Acid (<0.40) umol/L Assessment and Plan Assessment: 1. Generalized weakness with falls 2. Anemia 3. Weight loss. Patient recently underwent EGD and colonoscopy showing gastroenteritis 4. History of previous cardiac catheterization with stent placement in 2022 5. Hypothyroidism THS is slightly low at 0.460 6. History of essential hypertension 7. History of hyperlipidemia 8. History of diabetes mellitus 9. History of COPD 10. History of osteoarthritis 11. History of psoriasis 12. Cervical spine stenosis. Orthopedic services consulted DVT prophylaxis Lovenox. GI prophylaxis Protonix Neurology services consulted Repeat labs ordered PT OT and social work services consulted for discharge planning
--- NOTE | 2024-05-24 12:48 | P.CRDCN ---
History of Present Illness History of present illness: HISTORY OF PRESENT ILLNESS: This is a 68-year-old male with a past medical history significant for coronary artery disease with previous stenting, hypertension, and hyperlipidemia. Patient follows in the office with Dr. Ochoa. We have been asked to see the patient in consultation for cardiac clearance. Patient examined at the bedside. Patient presented to the hospital with worsening weakness of his lower extremities. Patient states a few weeks ago he fell walking out of his trailer and had to crawl to his car. Patient does report he sustained some wounds to his lower extremities from that. The patient denies having any chest pain or pressure. He denies any shortness of breath. The patient was found to have severe cervical stenosis and is scheduled for surgical intervention tomorrow. The patient gives additional history of 40 pound unintentional weight loss over the past 6 months. Patient states that he currently lives in a trailer without heat or running water. He states that he typically does not have a lot of food at home. He reports chronic left sided weakness from CVA about 1.5 years ago. He states he has been doing well from a cardiac standpoint after his stenting in 2022. He states that he has had no further episodes of chest pain or pressure since his stent last year. DIAGNOSTICS: - EKG reveals sinus mechanism with no signs of acute ischemia - Chest xray negative for acute process - Laboratory data: WBC 5.49. Hemoglobin 8.2. Platelet count 178. Sodium 143. Potassium 4.1. BUN 8.6. Creatinine 0.5. - Current home cardiac medications include lisinopril 20 mg daily, carvedilol 3.125 mg twice a day, Lipitor 10 mg daily - Most recent echocardiogram obtained in January 2023 revealing ejection fraction 55%, mild concentric LVH, and no significant valvular abnormalities. - Cardiac catheterization history: January [address] Ibarra. Patient underwent stenting of the mid LAD and proximal LAD. REVIEW OF SYSTEMS: At the time of my exam: CONSTITUTIONAL: Denies fever or chills. HEENT: Denies blurred vision, vision changes, or eye pain. Denies hemoptysis CARDIOVASCULAR: Denies chest pain. Denies orthopnea. Denies PND. Denies palpitations RESPIRATORY: Denies shortness of breath. GASTROINTESTINAL: Denies abdominal pain. Denies nausea or vomiting. HEMATOLOGIC: Denies bleeding disorders. GENITOURINARY: Denies any blood in urine. SKIN: Denies pruitis. Denies rash. PHYSICAL EXAM: VITAL SIGNS: Reviewed. GENERAL: Well-developed in no acute distress. HEENT: Head is normocephalic. Pupils are equal, round. Sclerae anicteric. Mucous membranes of the mouth are moist. Neck supple. No JVD or thyromegaly LUNGS: Respirations even and unlabored. Lungs essentially clear to auscultation bilaterally. HEART: Regular rate and rhythm. S1 and S2 heard. Systolic murmur noted. ABDOMEN: Soft. Nondistended. Nontender. EXTREMITIES: Left-sided weakness. No clubbing or cyanosis. Peripheral pulses intact. No lower extremity edema. Small wound with scab noted to lateral aspect of patient's right lower extremity. NEUROLOGIC: Awake and alert. Oriented x 3. ASSESSMENT: Worsening weakness and balance Severe cervical stenosis Coronary artery disease with previous stenting of the mid and proximal LAD, 01/2023 History of CVA with residual left-sided weakness Hypertension Hyperlipidemia History of anemia status post EGD on 04/18/2024 revealing antral gastritis 40 pound unintentional weight loss over 6 months Protein calorie malnutrition, albumin 3.2, BMI 18.7 Former nicotine dependence PLAN: 2D echo has been ordered. Await results Increase atorvastatin to 20 mg daily Add aspirin 81 mg daily postoperatively due to hx of CAD with PCI Patient is scheduled to undergo anterior cervical decompression and fusion with discectomy C3-[address] Rodriguez tomorrow Patient is without complaints of angina and is clinically not in congestive heart failure Patient is at intermediate risk to proceed with surgery from a cardiac standpoint Case management/social work is following for placement postdischarge. The patient reports that he currently lives in a trailer without heat or running water. He states he has lost 40 pounds over the past 6 months and many times does not have a lot of food available which may be contributing to his anemia from malnutrition. Further recommendations pending patient course Nurse practitioner note has been reviewed by physician. Signing provider agrees with the documented findings, assessment, and plan of care documented by [employer] as a scribe. Past Medical History Past Medical History: Asthma, COPD, CVA/TIA, Diabetes Mellitus, Hearing Disorder / Deafness, Hyperlipidemia, Hypertension, Osteoarthritis (OA), Skin Disorder Additional Past Medical History / Comment(s): DM type II, arthritis in multiple joints, psoriasis, vitiligo, [place], hx of feeling lightheaded and falls., CVA- states left arm weak-unable to lift or reach far-unable to grasp with left hand , weakness left leg and states left foot drops down and catches on everything., uses wheelchair and cane., lower back and left hip pain, left arm fracture, bad rotator cuffs bilaterally History of Any Multi-Drug Resistant Organisms: None Reported Past Surgical History: Heart Catheterization, Joint Replacement Additional Past Surgical History / Comment(s): Bilateral hip replacements Past Anesthesia/Blood Transfusion Reactions: No Reported Reaction Additional Past Anesthesia/Blood Transfusion Reaction / Comment(s): pt states was unable to receive spinal tap with last surgery d/t arthritis in back, received general anesthetic" Smoking Status: Former smoker - Past Family History Mother Family Medical History: Eye Disorder, Hearing Disorder / Deafness Additional Family Medical History / Comment(s): Father passed at 93yrs old. He had glaucoma and [place]. Medications and Allergies Home Medications Medication Instructions Recorded Confirmed Type Atorvastatin [Lipitor] 10 mg PO DAILY 30 Days #30 tab 04/21/24 05/20/24 Rx Pantoprazole [Protonix] 40 mg PO DAILY 30 Days #30 tab 04/21/24 05/20/24 Rx carvediloL [Coreg] 3.125 mg PO BID-W/MEALS 30 Days 04/21/24 05/20/24 Rx #60 tab Albuterol Sulfate [Albuterol 1 - 2 puff PO RT-Q4H PRN 05/19/24 05/20/24 History Sulfate Hfa] Ergocalciferol [Vitamin D2 (1250 1,250 mcg PO WEEKLY 05/19/24 05/20/24 History Mcg = 53239 Iu)] Insulin Degludec [Tresiba] 35 units SQ DAILY 05/19/24 05/20/24 History Montelukast [Singulair] 10 mg PO HS 05/19/24 05/20/24 History lisinopriL [Prinivil] 20 mg PO DAILY 05/19/24 05/20/24 History Allergies Allergy/AdvReac Type Severity Reaction Status Date / Time No Known Allergies Allergy Verified 05/20/24 18:59 Physical Exam Vitals: Vital Signs Temp Pulse Pulse Resp BP BP Pulse Ox 05/24/24 07:26 98.0 F 62 17 166/71 99 10/09/24 01:16 97.7 F 69 16 151/63 96 05/23/24 20:00 74 70 16 05/23/24 19:02 98.5 F 70 17 133/68 98 05/23/24 13:08 98.1 F 67 18 144/80 99 Intake and Output 05/23/24 05/24/24 05/24/24 22:59 06:59 14:59 Intake Total 1678 Output Total 100 600 650 Balance 1578 -600 -650 Intake: Oral 1678 Output: Urine 100 600 650 Other: Voiding Method Urinal Urinal # Bowel Movements 0 Results 05/24/24 05:15 05/24/24 05:15 CBC 05/24/24 Range/Units 05:15 WBC 5.49 (4.50-10.00) X 10*3/uL RBC 1.85 L (4.40-5.60) X 10*6/uL Hgb 8.2 L (13.0-17.0) g/dL Hct 23.6 L (39.6-50.0) % Plt Count 178 (140-440) X 10*3/uL Current Medications Generic Name Dose Route Start Last Admin Trade Name Freq PRN Reason Stop Dose Admin Acetaminophen 650 mg 05/20/24 20:24 Acetaminophen Tab 325 Mg Tab PO Q6HR PRN Mild Pain or Fever > 100.5 Albuterol Sulfate 2.5 mg 05/21/24 08:42 Albuterol Nebulized 2.5 Mg/3 Ml INHALATION RT-Q4H PRN Shortness Of Breath Atorvastatin Calcium 10 mg 05/21/24 09:00 05/24/24 08:18 Atorvastatin 10 Mg Tab PO 10 mg DAILY DEIRDRE Administration Carvedilol 3.125 mg 05/21/24 17:30 05/24/24 08:18 Carvedilol 3.125 Mg Tab PO 3.125 mg BID-W/MEALS DEIRDRE Administration Cyanocobalamin 1,000 mcg 05/22/24 12:15 05/24/24 08:19 Cyanocobalamin 1,000 Mcg/Ml 1 Ml Vial IM 05/24/24 23:00 1,000 mcg DAILY DEIRDRE Administration Dextrose/Water 25 ml 05/20/24 20:02 Dextrose 50% Syringe 50 Ml IVP PER PROTOCOL PRN Hypoglycemia Protocol Dextrose/Water 50 ml 05/20/24 20:02 Dextrose 50% Syringe 50 Ml IVP PER PROTOCOL PRN Hypoglycemia Protocol Enoxaparin Sodium 40 mg 05/22/24 09:00 05/24/24 08:18 Enoxaparin 40 Mg/0.4 Ml Syringe SQ 40 mg DAILY DEIRDRE Administration Hydromorphone HCl 0.5 mg 05/20/24 20:24 05/24/24 09:41 Hydromorphone 0.5 Mg/0.5 Ml Syringe IVP 0.5 mg Q3HR PRN Administration Moderate Pain (Scale 4 to 6) Sodium Chloride 1,000 mls @ 75 mls/hr 05/20/24 20:30 05/24/24 05:35 Saline 0.9% IV 75 mls/hr .[id number] DEIRDRE Administration Insulin Aspart 0 unit 05/21/24 07:30 05/24/24 08:18 Insulin Aspart (Novolog) 100 Unit/Ml Vial SQ 1 unit AC-[id number] DEIRDRE Administration Protocol Insulin Aspart 0 unit 05/21/24 12:30 05/23/24 12:14 Insulin Aspart (Novolog) 100 Unit/Ml Vial SQ Not Given AC-LUNCH DEIRDRE Protocol Insulin Aspart 0 unit 05/21/24 17:30 05/23/24 17:41 Insulin Aspart (Novolog) 100 Unit/Ml Vial SQ 1 unit AC-SUPPER DEIRDRE Administration Protocol Insulin Detemir 25 unit 05/22/24 07:00 05/24/24 08:56 Insulin Detemir (Levemir) 100 Unit/Ml Syr SQ 25 unit DAILY@0700 DEIRDRE Administration Lisinopril 20 mg 05/21/24 09:00 05/24/24 08:18 Lisinopril 20 Mg Tab PO 20 mg DAILY DEIRDRE Administration Montelukast Sodium 10 mg 05/21/24 21:00 05/23/24 20:12 Montelukast 10 Mg Tab PO 10 mg HS DEIRDRE Administration Naloxone HCl 0.2 mg 05/20/24 20:24 Naloxone 0.4 Mg/Ml 1 Ml Vial IV Q2M PRN Opioid Reversal Ondansetron HCl 4 mg 05/20/24 20:24 Ondansetron 4 Mg/2 Ml Vial IVP Q8HR PRN Nausea And Vomiting Pantoprazole Sodium 40 mg 05/21/24 09:00 05/24/24 08:18 Pantoprazole 40 Mg Tablet PO 40 mg DAILY DEIRDRE Administration Intake and Output 05/23/24 05/24/24 05/24/24 22:59 06:59 14:59 Intake Total 1678 Output Total 100 600 650 Balance 7260 -600 650 Intake: Oral 1678 Output: Urine 100 600 650 Other: Voiding Method Urinal Urinal # Bowel Movements 0 05/24/24 05:15 05/22/24 05:57
--- NOTE | 2024-05-24 14:53 | P.PN ---
Subjective Progress Note Date: 05/24/24 I am following-up with patient and he feels about the same. Denies any new neurological issues. Does states he has neck pain and is chronic. Objective - Vital Signs Vital signs: Vital Signs Temp 97.4 F L 05/24/24 12:44 Pulse 58 L 05/24/24 12:44 Resp 16 05/24/24 12:44 BP 132/70 05/24/24 12:44 Pulse Ox 99 05/24/24 07:26 FiO2 Intake & Output 05/23/24 05/24/24 05/24/24 18:59 06:59 18:59 Intake Total 1438 240 Output Total 100 600 650 Balance 1338 -360 -650 Intake: Oral 1438 240 Output: Urine 100 600 650 Other: Voiding Method Urinal Urinal # Voids 2 # Bowel Movements 1 0 - Exam General: Sitting up in a chair and does not appear in acute distress. Neuro: Patient is awake alert oriented to self place and time. Is following simple commands. No aphasia no neglect. Pupils are round equal reactive to light. Visual mayorga are full to confrontation. Patient has mild left lower facial weakness. No dysarthria. Motor patient has weakness in the left upper extremity and is 3-4 out of 5 while the right side the strength appears normal. - Labs CBC & Chem 7: 05/24/24 05:15 05/24/24 05:15 Labs: Abnormal Lab Results - Last 24 Hours (Table) 05/22/24 05/23/24 05/23/24 Range/Units 06:04 16:55 20:13 RBC (4.40-5.60) X 10*6/uL Hgb (13.0-17.0) g/dL Hct (39.6-50.0) % MCV (80.0-97.0) FL MCH (27.0-32.0) pg Immature Gran # (0.00-0.04) X 10*3/uL BUN (9.0-27.0) mg/dL Creatinine (0.6-1.5) mg/dL Glucose (70-110) mg/dL POC Glucose (mg/dL) 192 H 249 H (70-110) mg/dL Calcium (8.7-10.3) mg/dL ALT (10-49) U/L Total Protein (6.2-8.2) g/dL Albumin (3.8-4.9) g/dL Methylmalonic Acid >5.00 H (<0.40) umol/L 05/24/24 05/24/24 05/24/24 Range/Units 05:15 05:15 07:24 RBC 1.85 L (4.40-5.60) X 10*6/uL Hgb 8.2 L (13.0-17.0) g/dL Hct 23.6 L (39.6-50.0) % MCV 127.6 H (80.0-97.0) FL MCH 44.3 H (27.0-32.0) pg Immature Gran # 0.19 H (0.00-0.04) X 10*3/uL BUN 7.1 L (9.0-27.0) mg/dL Creatinine 0.5 L (0.6-1.5) mg/dL Glucose 192 H (70-110) mg/dL POC Glucose (mg/dL) 174 H (70-110) mg/dL Calcium 8.1 L (8.7-10.3) mg/dL ALT 9 L (10-49) U/L Total Protein 4.9 L (6.2-8.2) g/dL Albumin 3.2 L (3.8-4.9) g/dL Methylmalonic Acid (<0.40) umol/L 05/24/24 Range/Units 12:26 RBC (4.40-5.60) X 10*6/uL Hgb (13.0-17.0) g/dL Hct (39.6-50.0) % MCV (80.0-97.0) FL MCH (27.0-32.0) pg Immature Gran # (0.00-0.04) X 10*3/uL BUN (9.0-27.0) mg/dL Creatinine (0.6-1.5) mg/dL Glucose (70-110) mg/dL POC Glucose (mg/dL) 198 H (70-110) mg/dL Calcium (8.7-10.3) mg/dL ALT (10-49) U/L Total Protein (6.2-8.2) g/dL Albumin (3.8-4.9) g/dL Methylmalonic Acid (<0.40) umol/L Assessment and Plan Assessment: * 68-year-old male presenting with worsening balance for the last 2 months. Worsening of balance and weakness that baseline: Likely due to B12 deficiency and severe cervical myelomalacia. * Neck pain and has C3C for severe spinal canal stenosis likely representing chronic changes myelomalacia given the lack of edema. * Vitamin B12 deficiency <150 * Macrocytic anemia, possible B12 deficiency * History of CVA, with residual left hemiparesis * Hypertension * Diabetes * Peripheral neuropathy, possibly related to diabetes, versus B12 deficiency * Hyperlipidemia * Left foot drop, related to CVA. Plan: * B12 deficiency: Start the patient on vitamin B12 1000 mcg IM for 3 days. I recommend IM supplement as management since this seems ongoing issues and will defer frequency to primary attending. * MMA >5 * MRI of the cervical spine rule out spinal stenosis: Reported as C3-C4 severe spinal canal stenosis with likely representing chronic change of myelomalacia given the lack of edema. Moderate degenerative changes at C3-C4 with moderate to severe left and moderate right neuroforaminal stenosis. * Consulted orthopedic surgery team for cervical changes and he is scheduled for surgery team. * Computed tomography scan showed no evidence of recent or remote stroke. * PT OT evaluate gait. * Hemoglobin A1c 7.1 on 04/18/2024. * Lipid panel with cholesterol 108, LDL 49, HDL 46, triglycerides 58 on 12/02/2023. No need to repeat. * TSH 0.460 and free T4 normal at 1.05. * I reordered folate level and if negative no further neurological work-up. The plan is discussed with patient. Time with Patient: Less than 30
[2024-05-24 17:34] LABS: Glucose,Whole Blood 188 mg/dL (70-110)
[2024-05-24 19:51] LABS: Glucose,Whole Blood 197 mg/dL (70-110)
--- NOTE | 2024-05-24 22:06 | P.CNOR ---
History of Present Illness - [facility] Consult date: 05/24/24 Consult reason: other (Weakness and falls) History of present illness: Patient is a pleasant 68-year-old male we are seeing in regards to weakness falls and cervical stenosis. Patient was admitted in regards to his weakness and multiple falls which have been worsening over the past several months. Apparently the patient has had chronic issues at his left side due to a cerebrovascular accident 3 or 4 years ago. The patient is an adequate historian but has some difficulties with details of his medical history. The patient feels that he had been having regular weakness on the left side in his upper extremities lower extremity over a long period of time since his stroke. Over the past few months he has been having more trouble with his ambulation and is walking and some weakness at his right upper extremity and right lower extremity. He felt that he was suffering from carpal tunnel syndrome in his right upper extremity. He says over the past couple weeks he has been having worsening weakening and having multiple falls. He says he has occasional neck pain. He has numbness at his bilateral upper extremities. This is usually worse on the left upper extremity but is now equal in the right and left upper extremity. He says he has troubles with grasping things using his right arm. He says he usually is able to do most of his activities and his activities of daily living easily with his right upper extremity but does have been more difficult for him over the past few months. He says he usually is able to ambulate and mobilize well without any problems but he is having more difficulty due to some weakness and decreased coordination in his right lower extremity. He feels he is lost some dexterity in his right upper extremity. He has been getting treatment and workup here in the hospital. He had evaluation of his cervical spine with neurology and was found to have severe stenosis at C3-4 with evidence of myelomalacia and we are consult in this regard. Review of Systems As stated per HPI. He admits to weakness in his bilateral upper extremities and has been progressive for the past few months on his right upper extremity and right lower extremity. He has not had acute changes over the past few days but has been having difficulties with falling. He has chronic left upper extremity and left lower extremity weakness due to prior CVA but he is not sure if this has been worsening as well. The patient is homeless he has been [facility] He denies any new pain in his extremities. He denies fevers chills. He denies shortness of breath or chest pain. He denies any visual changes or speech changes. He denies changes to bowel bladder function. Past Medical History Past Medical History: Asthma, COPD, CVA/TIA, Diabetes Mellitus, Hearing Disorder / Deafness, Hyperlipidemia, Hypertension, Osteoarthritis (OA), Skin Disorder Additional Past Medical History / Comment(s): DM type II, arthritis in multiple joints, psoriasis, vitiligo, IROQUOIS, hx of feeling lightheaded and falls., CVA- states left arm weak-unable to lift or reach far-unable to grasp with left hand , weakness left leg and states left foot drops down and catches on everything., uses wheelchair and cane., lower back and left hip pain, left arm fracture, bad rotator cuffs bilaterally History of Any Multi-Drug Resistant Organisms: None Reported Past Surgical History: Heart Catheterization, Joint Replacement Additional Past Surgical History / Comment(s): Bilateral hip replacements Past Anesthesia/Blood Transfusion Reactions: No Reported Reaction Additional Past Anesthesia/Blood Transfusion Reaction / Comm: pt states was unable to receive spinal tap with last surgery d/t arthritis in back, received general anesthetic" Smoking Status: Former smoker - Past Family History Mother Family Medical History: Eye Disorder, Hearing Disorder / Deafness Additional Family Medical History / Comment(s): Father passed at 93yrs old. He had glaucoma and hoopa. Medications and Allergies Home Medications Medication Instructions Recorded Confirmed Type Atorvastatin [Lipitor] 10 mg PO DAILY 30 Days #30 tab 04/21/24 05/20/24 Rx Pantoprazole [Protonix] 40 mg PO DAILY 30 Days #30 tab 04/21/24 05/20/24 Rx carvediloL [Coreg] 3.125 mg PO BID-W/MEALS 30 Days 04/21/24 05/20/24 Rx #60 tab Albuterol Sulfate [Albuterol 1 - 2 puff PO RT-Q4H PRN 05/19/24 05/20/24 History Sulfate Hfa] Ergocalciferol [Vitamin D2 (1250 1,250 mcg PO WEEKLY 05/19/24 05/20/24 History Mcg = [id number] Iu)] Insulin Degludec [Tresiba] 35 units SQ DAILY 05/19/24 05/20/24 History Montelukast [Singulair] 10 mg PO HS 05/19/24 05/20/24 History lisinopriL [Prinivil] 20 mg PO DAILY 05/19/24 05/20/24 History Allergies Allergy/AdvReac Type Severity Reaction Status Date / Time No Known Allergies Allergy Verified 05/20/24 18:59 Physical Examination Osteopathic Statement: *. No significant issues noted on an osteopathic structural exam other than those noted in the History and Physical/Consult. 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 He has 3+ out of 5 strength in his right shoulder biceps. 3-5 triceps. 2+ out of 5 precision agronomist on the right. Decreased dexterity on the right. Chronic changes and weakness of the left upper extremity due to his cerebrovascular acciden) Wrist strength: flexion: 3/5 (Chronic weakness at his left upper extremity due t o prior CVA. Chronic weakness in the left lower extremity. He is able to lift his legs up off the bed. He is nontender at his cervical spine. He has positive Spurling's to the right.) Results - Labs Labs: Abnormal Lab Results - Last 24 Hours (Table) 05/22/24 05/24/24 05/24/24 Range/Units 06:04 05:15 05:15 RBC 1.85 L (4.40-5.60) X 10*6/uL Hgb 8.2 L (13.0-17.0) g/dL Hct 23.6 L (39.6-50.0) % MCV 127.6 H (80.0-97.0) FL MCH 44.3 H (27.0-32.0) pg Immature Gran # 0.19 H (0.00-0.04) X 10*3/uL BUN 7.1 L (9.0-27.0) mg/dL Creatinine 0.5 L (0.6-1.5) mg/dL Glucose 192 H (70-110) mg/dL POC Glucose (mg/dL) (70-110) mg/dL Calcium 8.1 L (8.7-10.3) mg/dL ALT 9 L (10-49) U/L Total Protein 4.9 L (6.2-8.2) g/dL Albumin 3.2 L (3.8-4.9) g/dL Methylmalonic Acid >5.00 H (<0.40) umol/L 05/24/24 05/24/24 05/24/24 Range/Units 07: 12:26 17:33 RBC (4.40-5.60) X 10*6/uL Hgb (13.0-17.0) g/dL Hct (39.6-50.0) % MCV (80.0-97.0) FL MCH (27.0-32.0) pg Immature Gran # (0.00-0.04) X 10*3/uL BUN (9.0-27.0) mg/dL Creatinine (0.6-1.5) mg/dL Glucose (70-110) mg/dL POC Glucose (mg/dL) 174 H 198 H 188 H (70-110) mg/dL Calcium (8.7-10.3) mg/dL ALT (10-49) U/L Total Protein (6.2-8.2) g/dL Albumin (3.8-4.9) g/dL Methylmalonic Acid (<0.40) umol/L 05/24/24 Range/Units 19:50 RBC (4.40-5.60) X 10*6/uL Hgb (13.0-17.0) g/dL Hct (39.6-50.0) % MCV (80.0-97.0) FL MCH (27.0-32.0) pg Immature Gran # (0.00-0.04) X 10*3/uL BUN (9.0-27.0) mg/dL Creatinine (0.6-1.5) mg/dL Glucose (70-110) mg/dL POC Glucose (mg/dL) 197 H (70-110) mg/dL Calcium (8.7-10.3) mg/dL ALT (10-49) U/L Total Protein (6.2-8.2) g/dL Albumin (3.8-4.9) g/dL Methylmalonic Acid (<0.40) umol/L H & H 05/20/24 05/22/24 05/24/24 Range/Units 18:25 06:04 05:15 Hgb 10.4 L 8.7 L 8.2 L (13.0-17.5) gm/dL Hct 30.7 L 24.7 L 23.6 L (39.0-53.0) % Result Diagrams: 05/24/24 05:15 05/24/24 05:15 - Diagnostic results Cervical MRI with/without contrast: report reviewed, image reviewed (Severe disc height loss with osteophytic spurring and disc herniation C3-4. Severe c ervical stenosis with evidence of myelomalacia behind C3-4. Degenerative disc disease C4-5 C5-6. This a new MRI on this admission) Assessment and Plan Assessment: Cervical myelopathy with myelomalacia Likely exacerbation of central cord syndrome due to multiple falls and severe cervical stenosis Severe cervical stenosis C3-4 with disc herniation C3-4 and large osteophytes Degenerative disc disease cervical spine Chronic left upper extremity left lower extremity weakness due to prior CVA several years ago Gradually worsening strength and function of the right upper extremity and right lower extremity due to cervical myelopathy and stenosis without acute change Plan: The patient is having evidence of cervical myelopathy. He has chronic changes on the left side due to prior stenosis but is having worsening symptoms due to to the severe stenosis at C3-4 with myelomalacia and cervical myelopathy. He is likely experiencing some central cord syndrome due to his multiple falls as well. He is having difficulty with his right side which is usually his better function side. He has been having multiple falls due to loss of coordination as well. I think that that with his continued symptoms multiple falls and evidence of severe stenosis with myelopathy that the patient should undergo intervention with cervical decompression and discectomy at C3-4. He would need anterior cervical discectomy and fusion C3-4 to open the space at the area as well as decompress the nerves and stabilize the segment. This would give him best chance of halting the progression of the myelopathy and myelomalacia and given the possibility of recovering some of the strength and coordination that this is because. I think that the cervical myelopathy is the primary contributor to many of his symptoms though he does have some evidence of other deficits with neurologic function as stated per neurology. I appreciate the input and I agree with their continued workup and management as well. I had a long discussion with the patient today at bedside in regards to the possibly of surgery. I discussed the risk complications alternatives and benefits at length. We discussed the risk of bleeding risk of infection risk of need for further surgery risk of decrease or loss of motion malunion nonunion hardware failure nerve damage as well as the possibility that surgery may not alleviate his symptoms. I believe that he would continue to have worsening if he were to leave the stenosis intact given the severity of the stenosis and my elopathy and myelomalacia. He understands this. I answered his questions and he elects to proceed with surgical intervention for anterior cervical decompression with discectomy and fusion at C3-4. We will plan to proceed with surgical intervention tomorrow. He will sign informed consent. Will place him n.p.o. after midnight. He will have appropriate preoperative clearance and plan for surgery on . The patient had been making arrangements for staying at long-term posthospitalization and I think this is still a good idea for him postoperatively given his overall status, weakness and social issues. Time with Patient: Greater than 30
--- NOTE | 2024-05-25 07:18 | CA ---
Transthoracic Echo Report Name: Boaz Reed Age: 68 Gender: M : 1955 Exam Date: 05/24/2024 12:25 Exam Location: [facility] Ht (in): 70 Wt (lb): 130 Ordering Physician: Catherine Barry MD Attending/Referring Phys: It Support Consultant Jackeline Handy RDCS Procedure CPT: Indications: cardiac clearance prior to procedure Cardiac Hx: Technical Quality: Poor Contrast 1: Total Dose (mL): Contrast 2: Total Dose (mL): MEASUREMENTS (Male / Female) Normal Values 2D ECHO LV Diastolic Diameter PLAX 5.1 cm 4.2 - 5.9 / 3.9 - 5.3 cm LV Systolic Diameter PLAX 3.4 cm IVS Diastolic Thickness 0.6 cm 0.6 - 1.0 / 0.6 - 0.9 cm LVPW Diastolic Thickness 0.9 cm 0.6 - 1.0 / 0.6 - 0.9 cm LV Relative Wall Thickness 0.3 LVOT Diameter 2.0 cm LA Volume 42.7 cm??? 18 - 58 / 22 - 52 cm??? LA Volume Index 25.2 cm???/m??? 16 - 28 cm???/m??? DOPPLER AV Peak Velocity 151.4 cm/s AV Peak Gradient 9.2 mmHg AV Mean Velocity 102.1 cm/s AV Mean Gradient 5.0 mmHg AV Velocity Time Integral 31.8 cm LVOT Peak Velocity 83.0 cm/s LVOT Peak Gradient 2.8 mmHg LVOT Velocity Time Integral 18.6 cm LVOT Stroke Volume 55.8 cm??? LVOT Stroke Volume Index 32.1 ml/m??? LVOT Cardiac Index 2172.2 cm???/min???m??? AV Area Cont Eq vti 1.8 cm??? AV Area Cont Eq pk 1.6 cm??? MV Area PHT 3.9 cm??? Mitral E Point Velocity 61.0 cm/s Mitral A Point Velocity 55.3 cm/s Mitral E to A Ratio 1.1 MV Deceleration Time 195.7 ms PV Peak Velocity 102.7 cm/s PV Peak Gradient 4.2 mmHg FINDINGS Left Ventricle Left ventricular ejection fraction is estimated at 55-60 %. Left ventricular cavity size normal. Left ventricular wall thickness normal. No obvious regional wall motion abnormalities. Right Ventricle Normal right ventricular size and function. Unable to estimate the right ventricular systolic pressure. Right Atrium Right atrium not well visualized. Left Atrium Normal left atrial size. Mitral Valve Structurally normal mitral valve. No mitral stenosis, regurgitation or prolapse. Aortic Valve No aortic valve stenosis or regurgitation.aortic valve not well visualized. Tricuspid Valve Structurally normal tricuspid valve. No tricuspid stenosis. No tricuspid regurgitation. Pulmonic Valve No pulmonic stenosis. No pulmonic regurgitation.pulmonic valve not well visualized. Pericardium No pericardial effusion. Aorta Aortic annulus normal. Ascending aorta not well visualized. CONCLUSIONS Technically difficult study. Normal left ventricular size and systolic function Very limited Doppler study with no significant abnormalities Previewed by: Dr. Anny Arizmendi MD (Electronically Signed) Final Date: 25 May 2024 07:17
[2024-05-25 07:33] LABS: Glucose,Whole Blood 161 mg/dL (70-110)
--- NOTE | 2024-05-25 10:00 | P.PN ---
Subjective HISTORY OF PRESENT ILLNESS: This is a 68-year-old male with a past medical history significant for coronary artery disease with previous stenting, hypertension, and hyperlipidemia. Patient follows in the office with Dr. Ochoa. We have been asked to see the patient in consultation for cardiac clearance. Patient examined at the bedside. Patient presented to the hospital with worsening weakness of his lower extremities. Patient states a few weeks ago he fell walking out of his trailer and had to crawl to his car. Patient does report he sustained some wounds to his lower extremities from that. The patient denies having any chest pain or pressure. He denies any shortness of breath. The patient was found to have severe cervical stenosis and is scheduled for surgical intervention tomorrow. The patient gives additional history of 40 pound unintentional weight loss over the past 6 months. Patient states that he currently lives in a trailer without heat or running water. He states that he typically does not have a lot of food at home. He reports chronic left sided weakness from CVA about 1.5 years ago. He states he has been doing well from a cardiac standpoint after his stenting in 2022. He states that he has had no further episodes of chest pain or pressure since his stent last year. DIAGNOSTICS: - EKG reveals sinus mechanism with no signs of acute ischemia - Chest xray negative for acute process - Laboratory data: WBC 5.49. Hemoglobin 8.2. Platelet count 178. Sodium 143. Potassium 4.1. BUN 8.6. Creatinine 0.5. - Current home cardiac medications include lisinopril 20 mg daily, carvedilol 3.125 mg twice a day, Lipitor 10 mg daily - Most recent echocardiogram obtained in January 2023 revealing ejection fraction 55%, mild concentric LVH, and no significant valvular abnormalities. - Cardiac catheterization history: January [address] Ibarra. Patient underwent stenting of the mid LAD and proximal LAD. 05/25/2024 Patient examined this morning at the bedside. Patient denies any chest pain or pressure. He denies any shortness of breath. Vital signs are stable. Echocardiogram completed revealing ejection fraction 55 to 60% with no obvious regional wall motion abnormalities and no significant valvular abnormalities noted. PHYSICAL EXAM: VITAL SIGNS: Reviewed. GENERAL: Well-developed in no acute distress. HEENT: Head is normocephalic. Pupils are equal, round. Sclerae anicteric. Mucous membranes of the mouth are moist. Neck supple. No JVD or thyromegaly LUNGS: Respirations even and unlabored. Lungs essentially clear to auscultation bilaterally. HEART: Regular rate and rhythm. S1 and S2 heard. Systolic murmur noted. ABDOMEN: Soft. Nondistended. Nontender. EXTREMITIES: Left-sided weakness. No clubbing or cyanosis. Peripheral pulses intact. No lower extremity edema. Small wound with scab noted to lateral aspect of patient's right lower extremity. NEUROLOGIC: Awake and alert. Oriented x 3. ASSESSMENT: Worsening weakness and balance Severe cervical stenosis Coronary artery disease with previous stenting of the mid and proximal LAD, 01/2023 History of CVA with residual left-sided weakness Hypertension Hyperlipidemia History of anemia status post EGD on 04/18/2024 revealing antral gastritis 40 pound unintentional weight loss over 6 months Protein calorie malnutrition, albumin 3.2, BMI 18.7 Former nicotine dependence PLAN: Begin aspirin 81 mg daily postoperatively due to hx of CAD with PCI Patient is scheduled to undergo anterior cervical decompression and fusion with discectomy C3-[address] Rodriguez today Patient is without complaints of angina and is clinically not in congestive heart failure Patient is at intermediate risk to proceed with surgery from a cardiac standpoint Case management/social work is following for placement postdischarge. The patient reports that he currently lives in a trailer without heat or running water. He states he has lost 40 pounds over the past 6 months and many times does not have a lot of food available which may be contributing to his anemia from malnutrition. No further inpatient recommendations from a cardiac standpoint We will sign off. Please reconsult if needed. Nurse practitioner note has been reviewed by physician. Signing provider agrees with the documented findings, assessment, and plan of care documented by [employer] as a scribe. Objective - Vital Signs Vital signs: Vital Signs Temp 98.6 F 05/25/24 07:15 Pulse 66 05/25/24 07:15 Resp 15 05/25/24 07:15 BP 146/70 05/25/24 07:15 Pulse Ox 99 05/25/24 07:15 FiO2 Intake & Output 05/24/24 05/25/24 05/25/24 18:59 06:59 18:59 Intake Total 0 Output Total 1275 800 Balance -1275 -800 Intake: Oral 0 Output: Urine 1275 800 Other: Voiding Method Urinal Urinal Urinal - Labs CBC & Chem 7: 05/24/24 05:15 05/24/24 05:15 Labs: Abnormal Lab Results - Last 24 Hours (Table) 05/24/24 05/24/24 05/24/24 Range/Units 05:15 05:15 05:15 RBC 1.85 L (4.40-5.60) X 10*6/uL Hgb 8.2 L (13.0-17.0) g/dL Hct 23.6 L (39.6-50.0) % MCV 127.6 H (80.0-97.0) FL MCH 44.3 H (27.0-32.0) pg Immature Gran # 0.19 H (0.00-0.04) X 10*3/uL BUN 7.1 L (9.0-27.0) mg/dL Creatinine 0.5 L (0.6-1.5) mg/dL Glucose 192 H (70-110) mg/dL POC Glucose (mg/dL) (70-110) mg/dL Calcium 8.1 L (8.7-10.3) mg/dL ALT 9 L (10-49) U/L Total Protein 4.9 L (6.2-8.2) g/dL Albumin 3.2 L (3.8-4.9) g/dL Folate 3.80 L (4.40-31.00) ng/mL 05/24/24 05/24/24 05/24/24 Range/Units 12:26 17:33 19:50 RBC (4.40-5.60) X 10*6/uL Hgb (13.0-17.0) g/dL Hct (39.6-50.0) % MCV (80.0-97.0) FL MCH (27.0-32.0) pg Immature Gran # (0.00-0.04) X 10*3/uL BUN (9.0-27.0) mg/dL Creatinine (0.6-1.5) mg/dL Glucose (70-110) mg/dL POC Glucose (mg/dL) 198 H 188 H 197 H (70-110) mg/dL Calcium (8.7-10.3) mg/dL ALT (10-49) U/L Total Protein (6.2-8.2) g/dL Albumin (3.8-4.9) g/dL Folate (4.40-31.00) ng/mL 05/25/24 Range/Units 07:31 RBC (4.40-5.60) X 10*6/uL Hgb (13.0-17.0) g/dL Hct (39.6-50.0) % MCV (80.0-97.0) FL MCH (27.0-32.0) pg Immature Gran # (0.00-0.04) X 10*3/uL BUN (9.0-27.0) mg/dL Creatinine (0.6-1.5) mg/dL Glucose (70-110) mg/dL POC Glucose (mg/dL) 161 H (70-110) mg/dL Calcium (8.7-10.3) mg/dL ALT (10-49) U/L Total Protein (6.2-8.2) g/dL Albumin (3.8-4.9) g/dL Folate (4.40-31.00) ng/mL
[2024-05-25] MEDS: IV FLUID CONTINUATION 1,000 ML IV ONE ×3 (12:19→12:49)
[2024-05-25] MEDS: FOLIC ACID 1 MG TAB PO SCH (12:19)
[2024-05-25 12:24] LABS: Glucose,Whole Blood 140 mg/dL (70-110)
[2024-05-25] MEDS: fentaNYL (PF) 50 MCG/ML 2 ML AMP IVP STA (12:46)
[2024-05-25] MEDS: ONDANSETRON 4 MG/2 ML VIAL IVP PRN (12:56)
[2024-05-25] MEDS ORDERED: ePHEDrine 50 MG/ML 1 ML VIAL ONE (13:21)
[2024-05-25] MEDS ORDERED: SUCCINYLCHOLINE CHLORIDE 200 MG/10 ML VIAL IV ONE (13:21)
[2024-05-25] MEDS ORDERED: PHENYLEPHRINE-0.9% NACL SYG 1,000 MCG/10 ML SYRINGE ONE (13:21)
[2024-05-25] MEDS ORDERED: DEXAMETHASONE SOD PHOSPHATE 10 MG/ML 1 ML VIAL ONE (13:21)
[2024-05-25] MEDS ORDERED: NEOSTIGMINE 1 MG/ML 10 ML VIAL ONE (13:21)
[2024-05-25] MEDS ORDERED: LIDOCAINE 1% INJ 10MG/ML (20 ML MDV) ONE (13:21)
[2024-05-25] MEDS ORDERED: ROCURONIUM 10 MG/ML (5 ML VIAL) IV ONE (13:21)
[2024-05-25] MEDS ORDERED: GLYCOPYRROLATE 0.2 MG/ML 2 ML VIAL ONE (13:21)
[2024-05-25] MEDS ORDERED: MIDAZOLAM 2 MG/2 ML VIAL ONE (13:21)
[2024-05-25] MEDS ORDERED: fentaNYL (PF) 50 MCG/ML 2 ML AMP ONE (13:21)
[2024-05-25] MEDS ORDERED: PROPOFOL 10 MG/ML 20 ML VIAL IV ONE (13:21)
[2024-05-25] MEDS: ceFAZolin 1,000 MG in SODIUM CHLORIDE 0.9% 1,000 ML IRRIGATION ONE (13:26)
[2024-05-25] MEDS: THROMBIN (BOVINE) 5,000 UNIT VIAL MISCELLANE ONE (14:00)
[2024-05-25] MEDS: BUPIVACAINE (PF) 0.25% 30 ML VIAL SQ ONE (14:00)
[2024-05-25] MEDS: LIDOCAINE 1% INJ 10MG/ML (10 ML MDV) SQ ONE (14:00)
[2024-05-25] MEDS: LACTATED RINGERS 1,000 ML IV ONE (14:20)
--- NOTE | 2024-05-25 14:44 | XR ---
EXAMINATION TYPE: XR cervical spine 1V DATE OF EXAM: 05/25/2024 COMPARISON: NONE HISTORY: 68-year-old male placement TECHNIQUE: A single intraoperative crosstable lateral view FINDINGS: The patient is intubated. Anterior approach surgical needle. Tip of the surgical needle at the mid aspect of the C4 inferior endplate region. Alignment is maintained. Moderate degenerative dis c disease C3-C4. Patient is edentulous. IMPRESSION: Surgical needle at the C4 inferior endplate level. [facility], , 05/25/2024 2:42 PM
--- NOTE | 2024-05-25 14:52 | P.PN ---
Subjective Progress Note Date: 05/25/24 Boaz Reed is a 68-year-old male patient who presented to the ER with concerns of increased falls and increased weakness over the past 3 to 4 days. Patient denies loss of consciousness. Patient was recently admitted due to concerns of rapid weight loss. EGD and colon colonoscopy were completed showing antral gastritis. Patient was discharged home but reports he continued to having increased weakness. Patient has a past medical history of asthma, COPD, CVA, diabetes mellitus, hyperlipidemia, hypertension, osteoarthritis and previous heart cath. Rib x-ray completed showing no acute fracture chest x-ray completed showing no acute pulmonary process. Head CT completed showing no acute intracranial process follow-up MRI can be performed to as Likely indicated. EKG showing sinus rhythm normal EKG lab work revealing normal UA negative influenza RSV and COVID-19. Creatinine 0.4-1 11 hemoglobin 10.4 and white blood cell 5.9. Patient denies any chest pain or shortness of breath. Patient denies nausea vomiting or diarrhea. Patient denies any urinary burning or frequency at this time patient will be admitted neurology services consulted social work PT and OT services consulted On 05/22/2024 patient was seen and examined on the medical floor he is alert and oriented x 3 in no apparent distress he is complaining of generalized weakness with difficulty standing and walking otherwise he denies any complaints there is no fever or chills no headache or dizziness no chest pain no shortness of breath no cough no nausea or vomiting no abdominal pain no diarrhea no urinary symptoms. Input from neurology reviewed patient is receiving vitamin B12 supplements, will continue to follow closely On 05/23/2024 patient is alert and oriented x 3. Still complaining of some pain and weakness. Cervical spine MRI completed showing C3-C4 severe spinal canal stenosis moderate degenerative changes at C3-C4 to severe left and moderate right neural formational stenosis. Dr. Prajapati has been consulted for further evaluation. Current vital signs temp 98.0, heart rate 74, respiratory rate 16, blood pressure 135/75 with a pulse ox of 98% on room air. Patient denies chest pain or shortness of breath. Patient denies nausea vomiting or diarrhea. Patient denies any urinary burning or frequency On 05/24/2024 patient was seen and examined on the medical floor, he is alert and oriented x 3 in no apparent distress, he is still complaining of severe weakness, otherwise he denies any complaints there is no fever or chills no headache or dizziness, no chest pain no shortness of breath no cough no nausea or vomiting no abdominal pain no diarrhea and no urinary symptoms. Input from neurosurgery reviewed, plan is to proceed with cervical spine surgery tomorrow. Patient has previous cardiac history, will check echocardiogram and consult cardiology for surgical clearance. On 05/25/2024 patient was seen and examined on the medical floor, he is alert and oriented x 3 in no apparent distress, he is still complaining of severe weakness, otherwise he denies any complaints there is no fever or chills no headache or dizziness, no chest pain no shortness of breath no cough no nausea or vomiting no abdominal pain no diarrhea and no urinary symptoms. Input from neurosurgery reviewed, plan is to proceed with cervical spine surgery today. Cardiology consultation reviewed. Objective - Vital Signs Vital signs: Vital Signs Temp 97.9 F 05/25/24 12:20 Pulse 66 05/25/24 12:20 Resp 16 05/25/24 12:20 BP 147/66 05/25/24 12:20 Pulse Ox 98 05/25/24 12:20 FiO2 Intake & Output 05/24/24 05/25/24 05/25/24 18:59 06:59 18:59 Intake Total 0 400 Output Total 1275 800 30 Balance -1275 -800 370 Intake: IV 400 Oral 0 Output: Urine 1275 800 30 Other: Voiding Method Urinal Urinal Urinal - Exam Head normocephalic Neck supple Lungs clear to auscultation bilaterally no wheezing or crackles Heart regular rate and rhythm S1-S2, no rub or gallop Abdomen is soft nontender nondistended positive bowel sounds no hepatosplenome amena Extremities no edema Neuro alert and orientated to 3 - Labs CBC & Chem 7: 05/24/24 05:15 05/24/24 05:15 Labs: Abnormal Lab Results - Last 24 Hours (Table) 05/24/24 05/24/24 05/24/24 Range/Units 05:15 17:33 19:50 POC Glucose (mg/dL) 188 H 197 H (70-110) mg/dL Folate 3.80 L (4.40-31.00) ng/mL 05/25/24 05/25/24 Range/Units 07:31 12:22 POC Glucose (mg/dL) 161 H 140 H (70-110) mg/dL Folate (4.40-31.00) ng/mL Assessment and Plan Assessment: 1. Generalized weakness with falls 2. Anemia 3. Weight loss. Patient recently underwent EGD and colonoscopy showing gastroenteritis 4. History of previous cardiac catheterization with stent placement in 2022 5. Hypothyroidism THS is slightly low at 0.460 6. History of essential hypertension 7. History of hyperlipidemia 8. History of diabetes mellitus 9. History of COPD 10. History of osteoarthritis 11. History of psoriasis 12. Cervical spine stenosis. Orthopedic services consulted DVT prophylaxis Lovenox. GI prophylaxis Protonix Neurology services consulted Repeat labs ordered PT OT and social work services consulted for discharge planning
--- NOTE | 2024-05-25 15:18 | P.OP ---
Date of Procedure: 05/25/24 Preoperative Diagnosis: Severe cervical stenosis C3-4, cervical myelopathy, cervical myelomalacia, upper and lower extremity weakness, myelopathic hand, Postoperative Diagnosis: Same Anesthesia: GETA Pathology: none sent Condition: stable Disposition: PACU Description of Procedure: BRIEF OPERATIVE NOTE Preoperative Diagnosis:Severe cervical stenosis C3-4, cervical myelopathy, cervical myelomalacia, upper and lower extremity weakness, myelopathic hand, Postoperative Diagnosis:Severe cervical stenosis C3-4, cervical myelopathy, cervical myelomalacia, upper and lower extremity weakness, myelopathic hand, Procedure: Anterior cervical decompression with discectomy and fusion C3-4 Placement of interbody graft C3-4 Application of anterior cervical plate C3-4 Surgeon: Dr. Rodriguez Autocutter: Jorge WILL who is present throughout the entire the case persistence during positioning, dissection, exposure, visualization, and all crucial elements of the case as well as closure. Anesthesia: General anesthesia Estimated blood loss: Approximately 20 cc Complications: None apparent Components implanted: [place] K2 M [place] anterior cervical plate 22 mm with 4 screws and 1 Vikos interbody allograft bone graft Disposition: To recovery room in good stable condition. OPERATIVE INDICATIONS The patient has had long-standing issues in their neck and upper extremities. He had a history of a cerebral vascular accident about 4 years ago and has history of chronic weakness at his left side of his upper extremities lower extremity. Over the past several months has been having worsening symptoms at his right upper extremity and developing into his right lower extremity. He has loss of coordination and developed new weakness in his right upper extremity and felt his left side was getting worse as well. He has had repeated falls. He feels his function has been declining so significantly that he presented to the hospital where he was found to have continued weakness with inability to ambulate well on his own and was also found to have multiple medical issues along with severe cervical stenosis C3-4. We felt that the stenosis was causing myelopathy and myelopathic hand and weakness of his right upper extremity lower extremity. He was also having repeated falls likely contributing to evidence of central cord syndrome. I felt his best treatment for his cervical spine would be decompression and discectomy with fusion at C3-4 to alleviate the stenosis and halt the progression of the issues at his cervical spine and hopefully give potential of recovery. The patient has been through conservative treatment. We discussed various treatment options including surgery, and the patient wishes to proceed with surgery We discussed the risk, patient's alternatives and benefits of surgery including but not limited to, risk of bleeding risk of infection, risk of need for further surgery, risk of decreased, loss of motion, muscle function, malunion nonunion, hardware failure, nerve damage, paralysis, heart attack, and . OPERATIVE SUMMARY After discussing all the risks, patient alternatives and benefits at length, the patient elected to proceed with surgical intervention, signed informed consent, and presented for their procedure. The patient was seen and examined in the preoperative holding area and the surgical site was marked. The patient was given antibiotics and brought to the operating room. The patient was positioned on the operating room table in a supine position being careful to pad any bony prominences and pressure points. The patient was sedated and intubated by anesthesia in standard fashion. Once the airway and C- spine were stabilized the patient's arms were padded and tucked at her side, with her shoulders gently taped. The head was placed in a donut pad with the neck in good neutral alignment and position. We were careful to maintain the patient's cervical spine and good neutral alignment and position throughout. The patient was prepped and draped in a normal standard fashion. An appropriate timeout and keystone protocol performed. We were able to proceed with the surgery. The local wound area was infiltrated with local anesthetic. An incision was made transversely approximately 2-1/2 cm over the appropriate levels at C4. Dissection was taken down subcutaneously to the level of the platysma which was split in line with its fibers. Dissection was taken with a carotid approach, with the trachea and esophagus medial and the carotid sheath laterally. We dissected down to the anterior surface of the vertebral bodies. Intraoperative x-ray was taken which showed a marker at the appropriate level of the vertebral body of C4. With the appropriate level positively confirmed, we were able to proceed with discectomy at the appropriate levels. All of the operative levels were exposed appropriately. The patient had all their twitches back, and there was no evidence of recurrent laryngeal issue. The wound was copiously irrigated and suctioned dry as had been done periodically throughout the case. At the appropriate level/levels, at C3-4 I established an annulotomy with an 11 blade scalpel. Anterior cervical osteophytes and complete disc height loss. A discectomy was performed with a combination of pituitary rongeurs, curettes, a high-speed bur, and Kerrison rongeurs. There were large posterior osteophytes as well which were taken down to further alleviate some stenosis. The posterior longitudinal ligament was taken down as were any posterior osteophytes. This gave good central and bilateral foraminal decompression. There is no evidence of any dural tear or leak. The endplates were prepared with a high-speed bur. With the endplates in good parallel position, I was able to size for the appropriate size interbody graft. The wound was irrigated and suctioned dry the graft was prepared and malleted into position. It had good alignment and position with the anterior surface flush with the anterior surface of the vertebral bodies at C3-4 With the grafts intact, I was able to measure and contour and appropriate sized plate. The plate was positioned at the midline over the appropriate levels at C3-4. Screw holes were established with a hand drill and drill guide. Screws were placed in good alignment and position with excellent bony purchase. They were seated under the locking device. The construct was checked and found to be stable. Intraoperative x-ray was taken which showed good alignment and position of the implants at the appropriate levels. There was no evidence of any dural tear or leak. Good hemostasis was maintained. The wound was copiously irrigated and suctioned dry as had been done periodically throughout the case. The platysma was closed with absorbable suture. The subcutaneous tissue was closed. The subcuticular tissue was closed with absorbable suture. The wound was cleaned and dried and dressed appropriately. A soft cervical collar was placed appropriately. The patient was woken up by anesthesia, extubated, transferred back gently to their hospital bed and brought to the recovery room in good stable condition. The patient will be admitted to the hospital for appropriate postoperative care, medical management and monitoring. We will continue to follow them closely about the postoperative course.
--- NOTE | 2024-05-25 15:37 | XR ---
EXAMINATION TYPE: XR cervical spine 1V DATE OF EXAM: 05/25/2024 COMPARISON: Earlier today HISTORY: 68-year-old male hardware placement TECHNIQUE: Single intraoperative crosstable lateral view FINDINGS: Interval placement of ACDF hardware at C3-C4. Hardware appears satisfactorily positioned without evid ent complication. Alignment is maintained. Patient remains intubated. IMPRESSION: Interval placement ACDF at C3-C4. [facility], , 05/25/2024 3:34 PM
[2024-05-25] MEDS: HYDROmorphone 0.5 MG/0.5 ML SYRINGE IVP STA (15:54)
[2024-05-25 16:38] LABS: Anisocytosis Moderate; HCT 34.7 % (39.0-53.0); HGB 11.8 gm/dL (13.0-17.5); MCH 41.6 pg (25.0-35.0); MCHC 34.1 g/dL (31.0-37.0); Macrocytosis Marked; Mean Platelet Volume 8.2; Platelet Count 219 k/uL (150-450); RBC 2.84 m/uL (4.30-5.90); RDW 21.5 % (11.5-15.5); WBC 8.1 k/uL (3.8-10.6)
[2024-05-25] MEDS: hydrALAZINE HCL 20 MG/ML 1 ML VIAL IVP STA (17:07)
--- NOTE | 2024-05-25 17:46 | P.PN ---
Progress Note - Text Progress Note Date: 05/25/24 folic acid is 3.8, so I started the patient on folic acid 1mg. Please refer to prior notes for further details. Otherwise no additional neurological work-up. Will sign off. Please reconsult if needed.
[2024-05-25] MEDS: D5-0.45% NACL WITH KCL 20MEQ/L 1,000 ML IV SCH (18:45)
[2024-05-25] MEDS: ATORVASTATIN 20 MG TAB PO SCH (18:57)
[2024-05-25 19:55] LABS: Glucose,Whole Blood 347 mg/dL (70-110)
[2024-05-25] MEDS: HYDROcodone/APAP 5-325MG 1 EACH TAB PO PRN (20:43)
[2024-05-25 23:29] LABS: Glucose,Whole Blood 485 mg/dL (70-110)
[2024-05-25] MEDS: INSULIN ASPART (NovoLOG) 100 UNIT/ML VIAL SQ ONE (23:45)
[2024-05-26 07:30] LABS: Glucose,Whole Blood 352 mg/dL (70-110)
[2024-05-26] MEDS: ASPIRIN 81 MG PO SCH (07:48)
--- NOTE | 2024-05-26 08:56 | P.PN ---
Progress Note - Text Progress Note Date: 05/26/24 Orthopedic Spine History of present illness: Patient is a pleasant 68-year-old male who is seen at the bedside following anterior cervical decompression and fusion performed yesterday. Patient states they are doing ok postsurgically. He does have some posterior cervical pain and had a headache this morning. He has not had change in his upper extremities postoperatively. He is known have myelopathic symptoms and cervical myelomalacia with severe spinal stenosis at C3-4. Currently does not complain of nausea, vomiting, fever, or chills. Patient states he has had some difficulty with pain control as he has been taking hydrocodone chronically over the past 6 or 7 years. Patient is eating and voiding freely without difficulty. He is admitted to medicine. He is planning for discharge to rehabilitation facility as early as today, 05/26/2024, pending insurance authorization. Physical Exam Cervical Fusion: Status post surgical day number 1 Patient is awake, alert, and oriented 3 Vital signs stable Soft cervical collar is removed Evidence of myelopathic change at the right hand Motor strength the upper extremity is 3+/5 including the right deltoid and biceps Motor strength the upper extremities 3-/5 including the triceps Motor strength upper extremities 2+/5 including preboarder on the right Decreased dexterity on the right Chronic changes and weakness of the left upper extremity chronic following CVA Dressing is clean, dry, and intact; no erythema, purulence, or signs of infection Assessment: Status post C3-4 anterior cervical decompression and fusion C3-4 severe cervical stenosis Cervical myelopathy Cervical myelomalacia Upper extremity and lower extremity weakness 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 Ambulate as tolerated; work with Physical Therapy to increase mobilization 2. Continue pain control with oral medications. We will plan to increase to hydrocodone 10 mg / 325 mg, 1 tab, every 6 hours, as needed for pain. Patient is also given a prescription for hydrocodone 10 mg / 325 mg, 1 tab, every 6 hours, as needed for acute pain, dispense #28. Prescription is written, signed, and placed in the patient's chart for discharge. He is also given a prescription for baclofen 10 mg, 1 tab, 3 times daily, as needed for muscle spasm, dispense #60. 3. Patient may shower with Optifoam dressing; patient may remove Optifoam in 3 days and shower without a dressing at that time 4. Medical management can continue to manage patient for patient's other medical diagnosis 5. Patient is cleared for discharge to rehab from an orthopedic spine standpoint pending clearance and discharge orders from medicine. 6. Patient can follow-up with Jorge Goetz PA-C or Dr. Mehrdad Rodriguez at [facility] in 2-3 weeks following discharge 7. Patient should avoid excessive cervical flexion, extension, and rotation. No overhead activities. No lifting greater than 10 pounds.
[2024-05-26 08:59] LABS: ALT 10 U/L (10-49); AST 20 U/L (14-35); Albumin 3.5 g/dL (3.8-4.9); Albumin/Globulin Ratio 1.94 Ratio (1.60-3.17); Alkaline Phosphatase 59 U/L (41-126); Blood Urea Nitrogen 13.2 mg/dL (9.0-27.0); Calcium 8.6 mg/dL (8.7-10.3); Carbon Dioxide 24.9 mmol/L (21.6-31.8); Chloride 103 mmol/L (96-109); Globulin 1.8 g/dL (1.6-3.3); Glucose 361 mg/dL (70-110); Potassium 4.5 mmol/L (3.5-5.5); Sodium 137 mmol/L (135-145); Total Bilirubin 0.4 mg/dL (0.3-1.2); Total Protein 5.3 g/dL (6.2-8.2)
[2024-05-26 10:10] LABS: Anisocytosis (M) 2+; Basophils # (A) 0.01 X 10*3/uL (0.00-0.10); Basophils % (A) 0.1 %; Elliptocytes 2+; Eosinophils # (A) 0 X 10*3/uL (0.04-0.35); Eosinophils % (A) 0 %; HCT 28.1 % (39.6-50.0); HGB 10.1 g/dL (13.0-17.0); MCH 42.4 pg (27.0-32.0); MCHC 35.9 g/dL (32.0-37.0); MCV 118.1 FL (80.0-97.0); Macrocytosis (M) 2+; Mean Platelet Volume 11.4 FL (9.5-12.2); Monocytes # (A) 0.94 X 10*3/uL (0.20-1.00); Monocytes % (A) 10.8 %; NRBC Per 100 WBC 0.03 X 10*3/uL (0.00-0.01); Neutrophils # (A) 6.98 X 10*3/uL (1.80-7.70); Neutrophils % (A) 79.8 %; Platelet Count 159 X 10*3/uL (140-440); RBC 2.38 X 10*6/uL (4.40-5.60); WBC 8.74 X 10*3/uL (4.50-10.00)
--- NOTE | 2024-05-26 10:31 | P.PN ---
Subjective Progress Note Date: 05/26/24 Boaz Reed is a 68-year-old male patient who presented to the ER with concerns of increased falls and increased weakness over the past 3 to 4 days. Patient denies loss of consciousness. Patient was recently admitted due to concerns of rapid weight loss. EGD and colon colonoscopy were completed showing antral gastritis. Patient was discharged home but reports he continued to having increased weakness. Patient has a past medical history of asthma, COPD, CVA, diabetes mellitus, hyperlipidemia, hypertension, osteoarthritis and previous heart cath. Rib x-ray completed showing no acute fracture chest x-ray completed showing no acute pulmonary process. Head CT completed showing no acute intracranial process follow-up MRI can be performed to as Likely indicated. EKG showing sinus rhythm normal EKG lab work revealing normal UA negative influenza RSV and COVID-19. Creatinine 0.4-1 11 hemoglobin 10.4 and white blood cell 5.9. Patient denies any chest pain or shortness of breath. Patient denies nausea vomiting or diarrhea. Patient denies any urinary burning or frequency at this time patient will be admitted neurology services consulted social work PT and OT services consulted On 05/22/2024 patient was seen and examined on the medical floor he is alert and oriented x 3 in no apparent distress he is complaining of generalized weakness with difficulty standing and walking otherwise he denies any complaints there is no fever or chills no headache or dizziness no chest pain no shortness of breath no cough no nausea or vomiting no abdominal pain no diarrhea no urinary symptoms. Input from neurology reviewed patient is receiving vitamin B12 supplements, will continue to follow closely On 05/23/2024 patient is alert and oriented x 3. Still complaining of some pain and weakness. Cervical spine MRI completed showing C3-C4 severe spinal canal stenosis moderate degenerative changes at C3-C4 to severe left and moderate right neural formational stenosis. Dr. Prajapati has been consulted for further evaluation. Current vital signs temp 98.0, heart rate 74, respiratory rate 16, blood pressure 135/75 with a pulse ox of 98% on room air. Patient denies chest pain or shortness of breath. Patient denies nausea vomiting or diarrhea. Patient denies any urinary burning or frequency On 05/24/2024 patient was seen and examined on the medical floor, he is alert and oriented x 3 in no apparent distress, he is still complaining of severe weakness, otherwise he denies any complaints there is no fever or chills no headache or dizziness, no chest pain no shortness of breath no cough no nausea or vomiting no abdominal pain no diarrhea and no urinary symptoms. Input from neurosurgery reviewed, plan is to proceed with cervical spine surgery tomorrow. Patient has previous cardiac history, will check echocardiogram and consult cardiology for surgical clearance. On 05/25/2024 patient was seen and examined on the medical floor, he is alert and oriented x 3 in no apparent distress, he is still complaining of severe weakness, otherwise he denies any complaints there is no fever or chills no headache or dizziness, no chest pain no shortness of breath no cough no nausea or vomiting no abdominal pain no diarrhea and no urinary symptoms. Input from neurosurgery reviewed, plan is to proceed with cervical spine surgery today. Cardiology consultation reviewed. On 05/26/2024 patient is alert and oriented x 3. Status post surgical intervention for cervical stenosis. Patient still having significant pain. Will also consult inpatient rehab for possible discharge. Patient denies any chest pain or shortness of breath. Patient denies nausea vomiting or diarrhea. Objective - Vital Signs Vital signs: Vital Signs Temp 97.6 F 05/26/24 07:20 Pulse 72 05/26/24 07:20 Resp 15 05/26/24 07:20 BP 157/67 05/26/24 07:20 Pulse Ox 99 05/26/24 07:20 FiO2 Intake & Output 05/25/24 05/26/24 05/26/24 18:59 06:59 18:59 Intake Total 2061 840 Output Total 5 500 Balance -14 340 Weight 58.967 kg Intake: IV 1751 Oral 840 Blood Product 310 Rc As-1 Unit 310 [id number] Output: Urine 2054 500 Estimated Blood Loss 20 Other: Voiding Method Urinal Urinal Urinal - Exam Head normocephalic Neck supple Lungs clear to auscultation bilaterally no wheezing or crackles Heart regular rate and rhythm S1-S2, no rub or gallop Abdomen is soft nontender nondistended positive bowel sounds no hepatosplenomegaly Extremities no edema Neuro alert and orientated to 3 - Labs CBC & Chem 7: 05/26/24 04:50 05/26/24 04:50 Labs: Abnormal Lab Results - Last 24 Hours (Table) 05/25/24 05/25/24 05/25/24 Range/Units 12:22 12:33 16:25 RBC 2.84 L (4.30-5.90) m/uL Hgb 11.8 L (13.0-17.5) gm/dL Hct 34.7 L (39.0-53.0) % MCV 122.0 H D (80.0-100.0) fL MCH 41.6 H (25.0-35.0) pg RDW 21.5 H (11.5-15.5) % Immature Gran # (0.00-0.04) X 10*3/uL Lymphocytes # (0.90-5.00) X 10*3/uL Eosinophils # (0.04-0.35) X 10*3/uL NRBC/100 WBC Diff (0.00-0.01) X 10*3/uL Anisocytosis (manual) Macrocytosis Marked A Macrocytosis (manual) Elliptocytes Creatinine (0.6-1.5) mg/dL BUN/Creatinine Ratio (12.00-20.00) Ratio Glucose (70-110) mg/dL POC Glucose (mg/dL) 140 H (70-110) mg/dL Calcium (8.7-10.3) mg/dL Total Protein (6.2-8.2) g/dL Albumin (3.8-4.9) g/dL Crossmatch See Detail 05/25/24 05/25/24 05/26/24 Range/Units 19:53 23:27 04:50 RBC 2.38 L (4.30-5.90) m/uL Hgb 10.1 L (13.0-17.5) gm/dL Hct 28.1 L (39.0-53.0) % MCV 118.1 H (80.0-100.0) fL MCH 42.4 H (25.0-35.0) pg RDW (11.5-15.5) % Immature Gran # 0.11 H (0.00-0.04) X 10*3/uL Lymphocytes # 0.70 L (0.90-5.00) X 10*3/uL Eosinophils # 0 L (0.04-0.35) X 10*3/uL NRBC/100 WBC Diff 0.03 H (0.00-0.01) X 10*3/uL Anisocytosis (manual) 2+ A Macrocytosis Macrocytosis (manual) 2+ A Elliptocytes 2+ A Creatinine (0.6-1.5) mg/dL BUN/Creatinine Ratio (12.00-20.00) Ratio Glucose (70-110) mg/dL POC Glucose (mg/dL) 347 H 485 H (70-110) mg/dL Calcium (8.7-10.3) mg/dL Total Protein (6.2-8.2) g/dL Albumin (3.8-4.9) g/dL Crossmatch 05/26/24 05/26/24 Range/Units 04:50 07:26 RBC (4.30-5.90) m/uL Hgb (13.0-17.5) gm/dL Hct (39.0-53.0) % MCV (80.0-100.0) fL MCH (25.0-35.0) pg RDW (11.5-15.5) % Immature Gran # (0.00-0.04) X 10*3/uL Lymphocytes # (0.90-5.00) X 10*3/uL Eosinophils # (0.04-0.35) X 10*3/uL NRBC/100 WBC Diff (0.00-0.01) X 10*3/uL Anisocytosis (manual) Macrocytosis Macrocytosis (manual) Elliptocytes Creatinine 0.5 L (0.6-1.5) mg/dL BUN/Creatinine Ratio 26.40 H (12.00-20.00) Ratio Glucose 361 H (70-110) mg/dL POC Glucose (mg/dL) 352 H (70-110) mg/dL Calcium 8.6 L (8.7-10.3) mg/dL Total Protein 5.3 L (6.2-8.2) g/dL Albumin 3.5 L (3.8-4.9) g/dL Crossmatch Assessment and Plan Assessment: 1. Generalized weakness with falls 2. Anemia 3. Weight loss. Patient recently underwent EGD and colonoscopy showing gastroenteritis 4. History of previous cardiac catheterization with stent placement in 2022 5. Hypothyroidism THS is slightly low at 0.460 6. History of essential hypertension 7. History of hyperlipidemia 8. History of diabetes mellitus 9. History of COPD 10. History of osteoarthritis 11. History of psoriasis 12. Cervical spine stenosis. Orthopedic services consulted. Status post surgical intervention DVT prophylaxis Lovenox. GI prophylaxis Protonix Neurology services consulted. Repeat labs ordered PT OT and social work services consulted for discharge planning
[2024-05-26] MEDS: HYDROcodone/APAP 10-325MG 1 EACH TAB PO PRN (11:29)
[2024-05-26 12:09] LABS: Glucose,Whole Blood 405 mg/dL (70-110)
[2024-05-26 17:30] LABS: Glucose,Whole Blood 265 mg/dL (70-110)
[2024-05-26] MEDS: INSULIN ASPART (NovoLOG) 100 UNIT/ML VIAL SQ ONE (17:56)
[2024-05-26 20:15] LABS: Glucose,Whole Blood 210 mg/dL (70-110)
[2024-05-27 07:26] LABS: Glucose,Whole Blood 152 mg/dL (70-110)
--- NOTE | 2024-05-27 09:21 | P.PN ---
Progress Note - Text Progress Note Date: 05/27/24 Patient is a pleasant 68-year-old male who is seen at the bedside following anterior cervical decompression and fusion performed on 05/25/2024. Patient states they are doing ok postsurgically. He states that his symptoms are improving. He feels that he has increasing strength to his upper extremities. He continues to have some numbness and tingling to the upper extremities. He is known have myelopathic symptoms and cervical myelomalacia with severe spinal stenosis at C3-4. Currently does not complain of nausea, vomiting, fever, or chills. He has been going without the soft collar. He is admitted to medicine. He is planning for discharge to rehabilitation facility pending insurance authorization. Physical Exam Cervical Fusion: Status post surgical day number 2 Patient is awake, alert, and oriented 3 Vital signs stable Soft cervical collar has been removed. His dressing is falling off. There is no drainage on the dressing and no active drainage. Mild ecchymosis about the incision. Evidence of myelopathic change at the right hand Motor strength the upper extremity is 3+/5 including the right deltoid and biceps Motor strength the upper extremities 3-/5 including the triceps Motor strength upper extremities 2-3+/5 including test baker on the right Decreased dexterity on the right but is improving. 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 Ambulate as tolerated; work with Physical Therapy to increase mobilization 2. Continue pain control with oral medications. We will plan to increase to hydrocodone 10 mg / 325 mg, 1 tab, every 6 hours, as needed for pain. Patient is also given a prescription for hydrocodone 10 mg / 325 mg, 1 tab, every 6 hours, as needed for acute pain, dispense #28. Prescription is written, signed, and placed in the patient's chart for discharge. He is also given a prescription for baclofen 10 mg, 1 tab, 3 times daily, as needed for muscle spasm, dispense #60. 3. Patient may shower with Optifoam dressing; patient may remove Optifoam in 3 days and shower without a dressing at that time 4. Medical management can continue to manage patient for patient's other medical diagnosis 5. Patient is cleared for discharge to rehab from an orthopedic spine stand point pending clearance and discharge orders from medicine. 6. Patient can follow-up with Jorge Goetz PA-C or Dr. Mehrdad Rodriguez at [facility] in 2-3 weeks following discharge 7. Patient should avoid excessive cervical flexion, extension, and rotation. No overhead activities. No lifting greater than 10 pounds.
--- NOTE | 2024-05-27 10:36 | P.PN ---
Subjective Progress Note Date: 05/26/24 Boaz Reed is a 68-year-old male patient who presented to the ER with concerns of increased falls and increased weakness over the past 3 to 4 days. Patient denies loss of consciousness. Patient was recently admitted due to concerns of rapid weight loss. EGD and colon colonoscopy were completed showing antral gastritis. Patient was discharged home but reports he continued to having increased weakness. Patient has a past medical history of asthma, COPD, CVA, diabetes mellitus, hyperlipidemia, hypertension, osteoarthritis and previous heart cath. Rib x-ray completed showing no acute fracture chest x-ray completed showing no acute pulmonary process. Head CT completed showing no acute intracranial process follow-up MRI can be performed to as Likely indicated. EKG showing sinus rhythm normal EKG lab work revealing normal UA negative influenza RSV and COVID-19. Creatinine 0.4-1 11 hemoglobin 10.4 and white blood cell 5.9. Patient denies any chest pain or shortness of breath. Patient denies nausea vomiting or diarrhea. Patient denies any urinary burning or frequency at this time patient will be admitted neurology services consulted social work PT and OT services consulted On 05/22/2024 patient was seen and examined on the medical floor he is alert and oriented x 3 in no apparent distress he is complaining of generalized weakness with difficulty standing and walking otherwise he denies any complaints there is no fever or chills no headache or dizziness no chest pain no shortness of breath no cough no nausea or vomiting no abdominal pain no diarrhea no urinary symptoms. Input from neurology reviewed patient is receiving vitamin B12 supplements, will continue to follow closely On 05/23/2024 patient is alert and oriented x 3. Still complaining of some pain and weakness. Cervical spine MRI completed showing C3-C4 severe spinal canal stenosis moderate degenerative changes at C3-C4 to severe left and moderate right neural formational stenosis. Dr. Prajapati has been consulted for further evaluation. Current vital signs temp 98.0, heart rate 74, respiratory rate 16, blood pressure 135/75 with a pulse ox of 98% on room air. Patient denies chest pain or shortness of breath. Patient denies nausea vomiting or diarrhea. Patient denies any urinary burning or frequency On 05/24/2024 patient was seen and examined on the medical floor, he is alert and oriented x 3 in no apparent distress, he is still complaining of severe weakness, otherwise he denies any complaints there is no fever or chills no headache or dizziness, no chest pain no shortness of breath no cough no nausea or vomiting no abdominal pain no diarrhea and no urinary symptoms. Input from neurosurgery reviewed, plan is to proceed with cervical spine surgery tomorrow. Patient has previous cardiac history, will check echocardiogram and consult cardiology for surgical clearance. On 05/25/2024 patient was seen and examined on the medical floor, he is alert and oriented x 3 in no apparent distress, he is still complaining of severe weakness, otherwise he denies any complaints there is no fever or chills no headache or dizziness, no chest pain no shortness of breath no cough no nausea or vomiting no abdominal pain no diarrhea and no urinary symptoms. Input from neurosurgery reviewed, plan is to proceed with cervical spine surgery today. Cardiology consultation reviewed. On 05/26/2024 patient is alert and oriented x 3. Status post surgical intervention for cervical stenosis. Patient still having significant pain. Will also consult inpatient rehab for possible discharge. Patient denies any chest pain or shortness of breath. Patient denies nausea vomiting or diarrhea. Objective - Vital Signs Vital signs: Vital Signs Temp 98.0 F 05/26/24 01:20 Pulse 84 05/26/24 01:20 Resp 16 05/26/24 01:20 BP 159/79 05/26/24 01:20 Pulse Ox 98 05/26/24 01:20 FiO2 Intake & Output 05/25/24 05/26/24 05/26/24 18:59 06:59 18:59 Intake Total 2061 840 Output Total 5 500 Balance -14 340 Weight 58.967 kg Intake: IV 1751 Oral 840 Blood Product 310 Rc As-1 Unit 310 [id number] Output: Urine 2054 500 Estimated Blood Loss 20 Other: Voiding Method Urinal Urinal - Exam Head normocephalic Neck supple Lungs clear to auscultation bilaterally no wheezing or crackles Heart regular rate and rhythm S1-S2, no rub or gallop Abdomen is soft nontender nondistended positive bowel sounds no hepatosplenomegaly Extremities no edema Neuro alert and orientated to 3 - Labs CBC & Chem 7: 05/26/24 04:50 05/26/24 04:50 Labs: Abnormal Lab Results - Last 24 Hours (Table) 05/25/24 05/25/24 05/25/24 Range/Units 07:31 12:22 12:33 RBC (4.30-5.90) m/uL Hgb (13.0-17.5) gm/dL Hct (39.0-53.0) % MCV (80.0-100.0) fL MCH (25.0-35.0) pg RDW (11.5-15.5) % Macrocytosis POC Glucose (mg/dL) 161 H 140 H (70-110) mg/dL Crossmatch See Detail 05/25/24 05/25/24 05/25/24 Range/Units 16:25 19:53 23:27 RBC 2.84 L (4.30-5.90) m/uL Hgb 11.8 L (13.0-17.5) gm/dL Hct 34.7 L (39.0-53.0) % MCV 122.0 H D (80.0-100.0) fL MCH 41.6 H (25.0-35.0) pg RDW 21.5 H (11.5-15.5) % Macrocytosis Marked A POC Glucose (mg/dL) 347 H 485 H (70-110) mg/dL Crossmatch Assessment and Plan Assessment: 1. Generalized weakness with falls 2. Anemia 3. Weight loss. Patient recently underwent EGD and colonoscopy showing gastroenteritis 4. History of previous cardiac catheterization with stent placement in 2022 5. Hypothyroidism THS is slightly low at 0.460 6. History of essential hypertension 7. History of hyperlipidemia 8. History of diabetes mellitus 9. History of COPD 10. History of osteoarthritis 11. History of psoriasis 12. Cervical spine stenosis. Orthopedic services consulted DVT prophylaxis Lovenox. GI prophylaxis Protonix Neurology services consulted Repeat labs ordered PT OT and social work services consulted for discharge planning
[2024-05-27 12:24] LABS: Glucose,Whole Blood 209 mg/dL (70-110)
--- NOTE | 2024-05-27 13:32 | P.PN ---
Subjective Progress Note Date: 05/27/24 Boaz Reed is a 68-year-old male patient who presented to the ER with concerns of increased falls and increased weakness over the past 3 to 4 days. Patient denies loss of consciousness. Patient was recently admitted due to concerns of rapid weight loss. EGD and colon colonoscopy were completed showing antral gastritis. Patient was discharged home but reports he continued to having increased weakness. Patient has a past medical history of asthma, COPD, CVA, diabetes mellitus, hyperlipidemia, hypertension, osteoarthritis and previous heart cath. Rib x-ray completed showing no acute fracture chest x-ray completed showing no acute pulmonary process. Head CT completed showing no acute intracranial process follow-up MRI can be performed to as Likely indicated. EKG showing sinus rhythm normal EKG lab work revealing normal UA negative influenza RSV and COVID-19. Creatinine 0.4-1 11 hemoglobin 10.4 and white blood cell 5.9. Patient denies any chest pain or shortness of breath. Patient denies nausea vomiting or diarrhea. Patient denies any urinary burning or frequency at this time patient will be admitted neurology services consulted social work PT and OT services consulted On 05/22/2024 patient was seen and examined on the medical floor he is alert and oriented x 3 in no apparent distress he is complaining of generalized weakness with difficulty standing and walking otherwise he denies any complaints there is no fever or chills no headache or dizziness no chest pain no shortness of breath no cough no nausea or vomiting no abdominal pain no diarrhea no urinary symptoms. Input from neurology reviewed patient is receiving vitamin B12 supplements, will continue to follow closely On 05/23/2024 patient is alert and oriented x 3. Still complaining of some pain and weakness. Cervical spine MRI completed showing C3-C4 severe spinal canal stenosis moderate degenerative changes at C3-C4 to severe left and moderate right neural formational stenosis. Dr. Prajapati has been consulted for further evaluation. Current vital signs temp 98.0, heart rate 74, respiratory rate 16, blood pressure 135/75 with a pulse ox of 98% on room air. Patient denies chest pain or shortness of breath. Patient denies nausea vomiting or diarrhea. Patient denies any urinary burning or frequency On 05/24/2024 patient was seen and examined on the medical floor, he is alert and oriented x 3 in no apparent distress, he is still complaining of severe weakness, otherwise he denies any complaints there is no fever or chills no headache or dizziness, no chest pain no shortness of breath no cough no nausea or vomiting no abdominal pain no diarrhea and no urinary symptoms. Input from neurosurgery reviewed, plan is to proceed with cervical spine surgery tomorrow. Patient has previous cardiac history, will check echocardiogram and consult cardiology for surgical clearance. On 05/25/2024 patient was seen and examined on the medical floor, he is alert and oriented x 3 in no apparent distress, he is still complaining of severe weakness, otherwise he denies any complaints there is no fever or chills no headache or dizziness, no chest pain no shortness of breath no cough no nausea or vomiting no abdominal pain no diarrhea and no urinary symptoms. Input from neurosurgery reviewed, plan is to proceed with cervical spine surgery today. Cardiology consultation reviewed. On 05/26/2024 patient is alert and oriented x 3. Status post surgical intervention for cervical stenosis. Patient still having significant pain. Will also consult inpatient rehab for possible discharge. Patient denies any chest pain or shortness of breath. Patient denies nausea vomiting or diarrhea. On 05/27/2024 patient was seen and examined on the medical floor he is alert and oriented x 3 in no apparent distress he is still complaining of headache and neck pain and complaining of generalized weakness otherwise he denies any complaints there is no fever or chills no dizziness no chest pain no shortness of breath no cough no nausea or vomiting no abdominal pain no diarrhea no blood in the stools no burning with urination no frequency or urgency and no hematuria. At this time we are waiting for physical therapy and Occupational Therapy assessment, patient will need to go to rehab prior to going home. Objective - Vital Signs Vital signs: Vital Signs Temp 97.5 F L 05/27/24 07:24 Pulse 66 05/27/24 07:24 Resp 17 05/27/24 07:24 BP 144/71 05/27/24 07:24 Pulse Ox 97 05/27/24 07:24 FiO2 Intake & Output 05/26/24 05/27/24 05/27/24 18:59 06:59 18:59 Intake Total 840 Output Total 1850 1000 Balance -1850 -160 Intake: Oral 840 Output: Urine 1850 1000 Other: Voiding Method Urinal External Catheter - Exam Head normocephalic Neck supple Lungs clear to auscultation bilaterally no wheezing or crackles Heart regular rate and rhythm S1-S2, no rub or gallop Abdomen is soft nontender nondistended positive bowel sounds no hep atosplenomegaly Extremities no edema Neuro alert and orientated to 3 - Labs CBC & Chem 7: 05/26/24 04:50 05/26/24 04:50 Labs: Abnormal Lab Results - Last 24 Hours (Table) 05/26/24 05/26/24 05/26/24 Range/Units 12:07 17:28 20:14 POC Glucose (mg/dL) 405 H 265 H 210 H (70-110) mg/dL 05/27/24 Range/Units 07:25 POC Glucose (mg/dL) 152 H (70-110) mg/dL Assessment and Plan Assessment: 1. Generalized weakness with falls 2. Anemia 3. Weight loss. Patient recently underwent EGD and colonoscopy showing gastroenteritis 4. History of previous cardiac catheterization with stent placement in 2022 5. Hypothyroidism THS is slightly low at 0.460 6. History of essential hypertension 7. History of hyperlipidemia 8. History of diabetes mellitus 9. History of COPD 10. History of osteoarthritis 11. History of psoriasis 12. Cervical spine stenosis. Orthopedic services consulted DVT prophylaxis Lovenox. GI prophylaxis Protonix Neurology services consulted Repeat labs ordered PT OT and social work services consulted for discharge planning
[2024-05-27 17:32] LABS: Glucose,Whole Blood 89 mg/dL (70-110)
[2024-05-27 20:29] LABS: Glucose,Whole Blood 146 mg/dL (70-110)
[2024-05-28 06:18] LABS: Glucose,Whole Blood 107 mg/dL (70-110)
--- NOTE | 2024-05-28 09:47 | P.PN ---
Subjective Progress Note Date: 05/28/24 Boaz Reed is a 68-year-old male patient who presented to the ER with concerns of increased falls and increased weakness over the past 3 to 4 days. Patient denies loss of consciousness. Patient was recently admitted due to concerns of rapid weight loss. EGD and colon colonoscopy were completed showing antral gastritis. Patient was discharged home but reports he continued to having increased weakness. Patient has a past medical history of asthma, COPD, CVA, diabetes mellitus, hyperlipidemia, hypertension, osteoarthritis and previous heart cath. Rib x-ray completed showing no acute fracture chest x-ray completed showing no acute pulmonary process. Head CT completed showing no acute intracranial process follow-up MRI can be performed to as Likely indicated. EKG showing sinus rhythm normal EKG lab work revealing normal UA negative influenza RSV and COVID-19. Creatinine 0.4-1 11 hemoglobin 10.4 and white blood cell 5.9. Patient denies any chest pain or shortness of breath. Patient denies nausea vomiting or diarrhea. Patient denies any urinary burning or frequency at this time patient will be admitted neurology services consulted social work PT and OT services consulted On 05/22/2024 patient was seen and examined on the medical floor he is alert and oriented x 3 in no apparent distress he is complaining of generalized weakness with difficulty standing and walking otherwise he denies any complaints there is no fever or chills no headache or dizziness no chest pain no shortness of breath no cough no nausea or vomiting no abdominal pain no diarrhea no urinary symptoms. Input from neurology reviewed patient is receiving vitamin B12 supplements, will continue to follow closely On 05/23/2024 patient is alert and oriented x 3. Still complaining of some pain and weakness. Cervical spine MRI completed showing C3-C4 severe spinal canal stenosis moderate degenerative changes at C3-C4 to severe left and moderate right neural formational stenosis. Dr. Prajapati has been consulted for further evaluation. Current vital signs temp 98.0, heart rate 74, respiratory rate 16, blood pressure 135/75 with a pulse ox of 98% on room air. Patient denies chest pain or shortness of breath. Patient denies nausea vomiting or diarrhea. Patient denies any urinary burning or frequency On 05/24/2024 patient was seen and examined on the medical floor, he is alert and oriented x 3 in no apparent distress, he is still complaining of severe weakness, otherwise he denies any complaints there is no fever or chills no headache or dizziness, no chest pain no shortness of breath no cough no nausea or vomiting no abdominal pain no diarrhea and no urinary symptoms. Input from neurosurgery reviewed, plan is to proceed with cervical spine surgery tomorrow. Patient has previous cardiac history, will check echocardiogram and consult cardiology for surgical clearance. On 05/25/2024 patient was seen and examined on the medical floor, he is alert and oriented x 3 in no apparent distress, he is still complaining of severe weakness, otherwise he denies any complaints there is no fever or chills no headache or dizziness, no chest pain no shortness of breath no cough no nausea or vomiting no abdominal pain no diarrhea and no urinary symptoms. Input from neurosurgery reviewed, plan is to proceed with cervical spine surgery today. Cardiology consultation reviewed. On 05/26/2024 patient is alert and oriented x 3. Status post surgical intervention for cervical stenosis. Patient still having significant pain. Will also consult inpatient rehab for possible discharge. Patient denies any chest pain or shortness of breath. Patient denies nausea vomiting or diarrhea. On 05/27/2024 patient was seen and examined on the medical floor he is alert and oriented x 3 in no apparent distress he is still complaining of headache and neck pain and complaining of generalized weakness otherwise he denies any complaints there is no fever or chills no dizziness no chest pain no shortness of breath no cough no nausea or vomiting no abdominal pain no diarrhea no blood in the stools no burning with urination no frequency or urgency and no hematuria. At this time we are waiting for physical therapy and Occupational Therapy assessment, patient will need to go to rehab prior to going home. On 05/28/2024 patient is alert and oriented x 3. Patient still complaining of neck pain and headache. Awaiting inpatient rehab assessment for possible placement. Patient denies chest pain or shortness of breath. Patient denies nausea vomiting or diarrhea. Current vital signs temp 98.3, heart rate 77, respiratory rate 18, blood pressure 112/60 with a pulse ox of 93% on room air Objective - Vital Signs Vital signs: Vital Signs Temp 98.3 F 05/28/24 07:50 Pulse 77 05/28/24 07:50 Resp 18 05/28/24 07:50 BP 112/60 05/28/24 07:50 Pulse Ox 93 L 05/28/24 07:50 FiO2 Intake & Output 05/27/24 05/28/24 05/28/24 18:59 06:59 18:59 Intake Total 180 Output Total 1000 1700 Balance -1000 -1520 Intake: Oral 180 Output: Urine 1000 1700 Other: Voiding Method External Catheter # Voids 4 - Exam Head normocephalic Neck supple Lungs clear to auscultation bilaterally no wheezing or crackles Heart regular rate and rhythm S1-S2, no rub or gallop Abdomen is soft nontender nondistended positive bowel sounds no hepato splenomegaly Extremities no edema Neuro alert and orientated to 3 - Labs CBC & Chem 7: 05/26/24 04:50 05/26/24 04:50 Labs: Abnormal Lab Results - Last 24 Hours (Table) 05/27/24 05/27/24 Range/Units 12:22 20:24 POC Glucose (mg/dL) 209 H 146 H (70-110) mg/dL Assessment and Plan Assessment: 1. Generalized weakness with falls 2. Anemia 3. Weight loss. Patient recently underwent EGD and colonoscopy showing gastroenteritis 4. History of previous cardiac catheterization with stent placement in 2022 5. Hypothyroidism THS is slightly low at 0.460 6. History of essential hypertension 7. History of hyperlipidemia 8. History of diabetes mellitus 9. History of COPD 10. History of osteoarthritis 11. History of psoriasis 12. Cervical spine stenosis. Status post surgical repair DVT prophylaxis Lovenox. GI prophylaxis Protonix Neurology services consulted Repeat labs ordered PT OT Patient will need rehab upon discharge inpatient rehab consult placed
[2024-05-28 09:56] LABS: Basophils # (A) 0.01 X 10*3/uL (0.00-0.10); Basophils % (A) 0.1 %; Eosinophils # (A) 0.12 X 10*3/uL (0.04-0.35); Eosinophils % (A) 1.5 %; HCT 30.3 % (39.6-50.0); HGB 10.3 g/dL (13.0-17.0); Lymphocytes # (A) 1.79 X 10*3/uL (0.90-5.00); Lymphocytes % (A) 22.6 %; MCH 41.7 pg (27.0-32.0); MCV 122.7 FL (80.0-97.0); Mean Platelet Volume 11.5 FL (9.5-12.2); Monocytes # (A) 1.01 X 10*3/uL (0.20-1.00); Monocytes % (A) 12.7 %; NRBC Per 100 WBC 0 X 10*3/uL (0.00-0.01); Neutrophils # (A) 4.91 X 10*3/uL (1.80-7.70); Platelet Count 142 X 10*3/uL (140-440); RBC 2.47 X 10*6/uL (4.40-5.60); RDW 20.2 % (11.5-14.5); WBC 7.93 X 10*3/uL (4.50-10.00)
[2024-05-28 10:38] LABS: ALT 13 U/L (10-49); AST 38 U/L (14-35); Albumin 3.3 g/dL (3.8-4.9); Albumin/Globulin Ratio 1.57 Ratio (1.60-3.17); Alkaline Phosphatase 54 U/L (41-126); Blood Urea Nitrogen 13.2 mg/dL (9.0-27.0); Calcium 8.7 mg/dL (8.7-10.3); Carbon Dioxide 28.9 mmol/L (21.6-31.8); Chloride 104 mmol/L (96-109); Globulin 2.1 g/dL (1.6-3.3); Glucose 111 mg/dL (70-110); Potassium 4.8 mmol/L (3.5-5.5); Sodium 142 mmol/L (135-145); Total Bilirubin 0.3 mg/dL (0.3-1.2); Total Protein 5.4 g/dL (6.2-8.2)
--- NOTE | 2024-05-28 10:49 | P.PN ---
Subjective Progress Note Date: 05/28/24 Principal diagnosis: Cervical myelopathy. Status post ACDF. Patient is a pleasant 68-year-old male who is seen at the bedside following anterior cervical decompression and fusion performed on 05/25/2024. Patient states they are doing ok postsurgically. He is complaining of increased headache today. He states that his symptoms are improving. He feels that he has increasing strength to his upper extremities. He continues to have some numbness and tingling to the upper extremities. He is known have myelopathic symptoms and cervical myelomalacia with severe spinal stenosis at C3-4. Currently does not complain of nausea, vomiting, fever, or chills. He has been going without the soft collar. He is admitted to medicine. He is planning for discharge to rehabilitation facility pending insurance authorization. Objective - Vital Signs Vital signs: Vital Signs Temp 98.3 F 05/28/24 07:50 Pulse 77 05/28/24 07:50 Resp 18 05/28/24 07:50 BP 112/60 05/28/24 07:50 Pulse Ox 93 L 05/28/24 07:50 FiO2 Intake & Output 05/27/24 05/28/24 05/28/24 18:59 06:59 18:59 Intake Total 180 Output Total 1000 1700 Balance -1000 -1520 Intake: Oral 180 Output: Urine 1000 1700 Other: Voiding Method External Catheter # Voids 4 - Exam This is a pleasant 68-year-old male in no acute distress. He is alert and oriented. His dressing is falling off again today. Dressing is clean and dry. Incision looks good. There is minimal soft tissue swelling. 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 The right is slightly stronger. Sensation is intact. - Labs CBC & Chem 7: 05/28/24 03:45 05/28/24 03:40 Labs: Abnormal Lab Results - Last 24 Hours (Table) 05/27/24 05/27/24 05/28/24 Range/Units 12:22 20: 03:40 RBC (4.40-5.60) X 10*6/uL Hgb (13.0-17.0) g/dL Hct (39.6-50.0) % MCV (80.0-97.0) FL MCH (27.0-32.0) pg RDW (11.5-14.5) % Immature Gran # (0.00-0.04) X 10*3/uL Monocytes # (0.20-1.00) X 10*3/uL Creatinine 0.5 L (0.6-1.5) mg/dL BUN/Creatinine Ratio 26.40 H (12.00-20.00) Ratio Glucose 111 H (70-110) mg/dL POC Glucose (mg/dL) 209 H 146 H (70-110) mg/dL AST 38 H (14-35) U/L Total Protein 5.4 L (6.2-8.2) g/dL Albumin 3.3 L (3.8-4.9) g/dL Albumin/Globulin Ratio 1.57 L (1.60-3.17) Ratio 05/28/24 Range/Units 03:45 RBC 2.47 L (4.40-5.60) X 10*6/uL Hgb 10.3 L (13.0-17.0) g/dL Hct 30.3 L (39.6-50.0) % MCV 122.7 H (80.0-97.0) FL MCH 41.7 H (27.0-32.0) pg RDW 20.2 H (11.5-14.5) % Immature Gran # 0.09 H (0.00-0.04) X 10*3/uL Monocytes # 1.01 H (0.20-1.00) X 10*3/uL Creatinine (0.6-1.5) mg/dL BUN/Creatinine Ratio (12.00-20.00) Ratio Glucose (70-110) mg/dL POC Glucose (mg/dL) (70-110) mg/dL AST (14-35) U/L Total Protein (6.2-8.2) g/dL Albumin (3.8-4.9) g/dL Albumin/Globulin Ratio (1.60-3.17) Ratio Assessment and Plan (1) Status post cervical spinal fusion Current Visit: Yes Status: Acute Code(s): Z98.1 - ARTHRODESIS STATUS SNOMED Code(s): 0748344586618 (2) Cervical myelopathy Current Visit: Yes Status: Acute Code(s): G95.9 - DISEASE OF SPINAL CORD, UNSPECIFIED SNOMED Code(s): 767355775 (3) Generalized weakness Current Visit: Yes Status: Acute Code(s): R53.1 - WEAKNESS SNOMED Code(s): 32115063 Plan: The clinical findings are discussed with the patient. His dressing is replaced. He is to continue with physical therapy. Plan discharge to inpatient rehab when cleared medically and placement is arranged.
[2024-05-28 11:30] LABS: Glucose,Whole Blood 155 mg/dL (70-110)
[2024-05-28 16:47] LABS: Glucose,Whole Blood 115 mg/dL (70-110)
[2024-05-28] MEDS: traMADol 50 MG TAB PO PRN (18:45)
[2024-05-28] MEDS: methocarbamoL 500 MG TAB PO PRN (20:04)
[2024-05-28 20:59] LABS: Glucose,Whole Blood 102 mg/dL (70-110)
[2024-05-29 06:36] LABS: Glucose,Whole Blood 135 mg/dL (70-110)
[2024-05-29 11:11] LABS: Glucose,Whole Blood 218 mg/dL (70-110)
[2024-05-29 13:49] VITALS: BP 100/64; PULSE 77; RESP 16; TEMP 98.5
--- NOTE | 2024-05-29 15:29 | P.DS ---
Providers Date of admission: 05/20/24 20:51 Expected date of discharge: 05/29/24 Attending physician: Catherine Barry Consults: 05/21/24 09:24 Consult Physician Routine Consulting Provider: Daphnie Galloway Consult Reason/Comments: falls, dizziness Do you want consulting provider notified?: Yes 05/22/24 18:08 Consult Physician Routine Consulting Provider: Tiny Rodriguez Consult Reason/Comments: left sided weakness with neck pain and cervical myelopathy Do you want consulting provider notified?: Yes 05/26/24 12:00 Consult Physician Routine Consulting Provider: Ron Mathias Consult Reason/Comments: inpt rehab services eval Do you want consulting provider notified?: Yes Primary care physician: Catherine Barry [place] [facility] Course: Diagnosis on discharge: 1. Generalized weakness with falls 2. Anemia 3. Weight loss. Patient recently underwent EGD and colonoscopy showing gastroenteritis 4. History of previous cardiac catheterization with stent placement in 2022 5. Hypothyroidism THS is slightly low at 0.460 6. History of essential hypertension 7. History of hyperlipidemia 8. History of diabetes mellitus 9. History of COPD 10. History of osteoarthritis 11. History of psoriasis 12. Cervical spine stenosis. Status post surgical repair Hospital course: Boaz Reed is a 68-year-old male patient who presented to the ER with concerns of increased falls and increased weakness over the past 3 to 4 days. Patient denies loss of consciousness. Patient was recently admitted due to concerns of rapid weight loss. EGD and colon colonoscopy were completed showing antral gastritis. Patient was discharged home but reports he continued to having increased weakness. Patient has a past medical history of asthma, COPD, CVA, diabetes mellitus, hyperlipidemia, hypertension, osteoarthritis and previous heart cath. Rib x-ray completed showing no acute fracture chest x-ray completed showing no acute pulmonary process. Head CT completed showing no acute intracranial process follow-up MRI can be performed to as Likely indicated. EKG showing sinus rhythm normal EKG lab work revealing normal UA negative influenza RSV and COVID-19. Creatinine 0.4-1 11 hemoglobin 10.4 and white blood cell 5.9. Patient denies any chest pain or shortness of breath. Patient denies nausea vomiting or diarrhea. Patient denies any urinary burning or frequency at this time patient will be admitted neurology services consulted social work PT and OT services consulted On 05/22/2024 patient was seen and examined on the medical floor he is alert and oriented x 3 in no apparent distress he is complaining of generalized weakness with difficulty standing and walking otherwise he denies any complaints there is no fever or chills no headache or dizziness no chest pain no shortness of breath no cough no nausea or vomiting no abdominal pain no diarrhea no urinary symptoms. Input from neurology reviewed patient is receiving vitamin B12 supplements, will continue to follow closely On 05/23/2024 patient is alert and oriented x 3. Still complaining of some pain and weakness. Cervical spine MRI completed showing C3-C4 severe spinal canal stenosis moderate degenerative changes at C3-C4 to severe left and moderate right neural formational stenosis. Dr. Prajapati has been consulted for further evaluation. Current vital signs temp 98.0, heart rate 74, respiratory rate 16, blood pressure 135/75 with a pulse ox of 98% on room air. Patient denies chest pain or shortness of breath. Patient denies nausea vomiting or diarrhea. Patient denies any urinary burning or frequency On 05/24/2024 patient was seen and examined on the medical floor, he is alert and oriented x 3 in no apparent distress, he is still complaining of severe weakness, otherwise he denies any complaints there is no fever or chills no headache or dizziness, no chest pain no shortness of breath no cough no nausea or vomiting no abdominal pain no diarrhea and no urinary symptoms. Input from neurosurgery reviewed, plan is to proceed with cervical spine surgery tomorrow. Patient has previous cardiac history, will check echocardiogram and consult cardiology for surgical clearance. On 05/25/2024 patient was seen and examined on the medical floor, he is alert and oriented x 3 in no apparent distress, he is still complaining of severe weakness, otherwise he denies any complaints there is no fever or chills no headache or dizziness, no chest pain no shortness of breath no cough no nausea or vomiting no abdominal pain no diarrhea and no urinary symptoms. Input from neurosurgery reviewed, plan is to proceed with cervical spine surgery today. Cardiology consultation reviewed. On 05/26/2024 patient is alert and oriented x 3. Status post surgical intervention for cervical stenosis. Patient still having significant pain. Will also consult inpatient rehab for possible discharge. Patient denies any chest pain or shortness of breath. Patient denies nausea vomiting or diarrhea. On 05/27/2024 patient was seen and examined on the medical floor he is alert and oriented x 3 in no apparent distress he is still complaining of headache and neck pain and complaining of generalized weakness otherwise he denies any complaints there is no fever or chills no dizziness no chest pain no shortness of breath no cough no nausea or vomiting no abdominal pain no diarrhea no blood in the stools no burning with urination no frequency or urgency and no hematuria. At this time we are waiting for physical therapy and Occupational Therapy assessment, patient will need to go to rehab prior to going home. On 05/28/2024 patient is alert and oriented x 3. Patient still complaining of neck pain and headache. Awaiting inpatient rehab assessment for possible placement. Patient denies chest pain or shortness of breath. Patient denies nausea vomiting or diarrhea. Current vital signs temp 98.3, heart rate 77, respiratory rate 18, blood pressure 112/60 with a pulse ox of 93% on room air On 05/29/2024 patient was seen and examined on the medical floor, he is alert and oriented x 3 in no apparent distress, there is no fever or chills no h eadache or dizziness no chest pain no shortness of breath no cough no nausea or vomiting no abdominal pain no diarrhea no urinary symptoms. He is still complaining of neck pain, and complaining of generalized weakness. At this time plan is to transfer to group home for rehabilitation. Patient Condition at Discharge: Stable Plan - Discharge Summary Discharge Rx Participant: No New Discharge Prescriptions: New Folic Acid 1 mg PO DAILY tab Acetaminophen Tab [Tylenol] 650 mg PO Q6HR PRN tab PRN Reason: Mild Pain Or Fever > 100.5 Baclofen 10 mg PO TID PRN #60 tab PRN Reason: Spasms HYDROcodone/APAP 10-325MG [[place] 10] 1 each PO Q6H PRN #28 tab PRN Reason: Pain Aspirin 81 mg PO DAILY tab methocarbamoL [Robaxin] 500 mg PO QID PRN tab PRN Reason: Muscle Spasm Continue carvediloL [Coreg] 3.125 mg PO BID-W/MEALS 30 Days #60 tab Atorvastatin [Lipitor] 10 mg PO DAILY 30 Days #30 tab Pantoprazole [Protonix] 40 mg PO DAILY 30 Days #30 tab lisinopriL [Prinivil] 20 mg PO DAILY Montelukast [Singulair] 10 mg PO HS Ergocalciferol [Vitamin D2 (1250 Mcg = 59876 Iu)] 1,250 mcg PO WEEKLY Insulin Degludec [Tresiba] 35 units SQ DAILY Albuterol Sulfate [Albuterol Sulfate Hfa] 1 - 2 puff PO RT-Q4H PRN PRN Reason: Shortness Of Breath Discharge Medication List Atorvastatin [Lipitor] 10 mg PO DAILY 30 Days #30 tab 04/21/24 [Rx] Pantoprazole [Protonix] 40 mg PO DAILY 30 Days #30 tab 04/21/24 [Rx] carvediloL [Coreg] 3.125 mg PO BID-W/MEALS 30 Days #60 tab 04/21/24 [Rx] Albuterol Sulfate [Albuterol Sulfate Hfa] 1 - 2 puff PO RT-Q4H PRN 05/19/24 [History] Ergocalciferol [Vitamin D2 (1250 Mcg = 43468 Iu)] 1,250 mcg PO WEEKLY 05/19/24 [History] Insulin Degludec [Tresiba] 35 units SQ DAILY 05/19/24 [History] Montelukast [Singulair] 10 mg PO HS 05/19/24 [History] lisinopriL [Prinivil] 20 mg PO DAILY 05/19/24 [History] Baclofen 10 mg PO TID PRN #60 tab 05/26/24 [Rx] HYDROcodone/APAP 10-325MG [[place] 10] 1 each PO Q6H PRN #28 tab 05/26/24 [Rx] Acetaminophen Tab [Tylenol] 650 mg PO Q6HR PRN tab 05/29/24 [Rx] Aspirin 81 mg PO DAILY tab 05/29/24 [Rx] Folic Acid 1 mg PO DAILY tab 05/29/24 [Rx] methocarbamoL [Robaxin] 500 mg PO QID PRN tab 05/29/24 [Rx] Follow up Appointment(s)/Referral(s): Tiny Rodriguez DO [Doctor of Osteopathic Medicine] - 2 Weeks [facility] [place], [NON-STAFF] - As Needed Catherine Barry MD [Primary Care Provider] - 1-2 days Activity/Diet/Wound Care/Special Instructions: Soft cervical collar for comfort. May remove as tolerated. Okay to start to mobilize with PT and OT for ADLs mobilization transfers and ambulation No above shoulder activities. No heavy or rigorous activity with upper extremities. Limit any screen in cervical spine
[2024-05-29 16:21] LABS: Glucose,Whole Blood 118 mg/dL (70-110)
== END 2024-05-29 16:47 | DRG 471 ==
LOC: EC 17:36 → OBSVTOIN 20:51 → 5NMEDONC 20:51 → 4SSUR 05-27 17:03
PROVIDERS: ADMIT Internal Medicine; ATTEND Internal Medicine
PROC: 0RT30ZZ Resection of Cervical Vertebral Disc, Open Approach (ICD-10-PCS; 2024-05-25)
PROC: 0RG10A0 Fusion of Cervical Vertebral Joint with Interbody Fusion Device, Anterior Approach, Anterior Column, Open Approach (ICD-10-PCS; principal; 2024-05-25 13:00)
DX: M50.21 Other cervical disc displacement, high cervical region (principal); S14.123A Central cord syndrome at C3 level of cervical spinal cord, initial encounter; G95.89 Other specified diseases of spinal cord; E46 Unspecified protein-calorie malnutrition; Z68.1 Body mass index [BMI] 19.9 or less, adult; I69.354 Hemiplegia and hemiparesis following cerebral infarction affecting left non-dominant side; Z59.12 Inadequate housing utilities; M48.02 Spinal stenosis, cervical region; E78.5 Hyperlipidemia, unspecified; D53.9 Nutritional anemia, unspecified; E03.9 Hypothyroidism, unspecified; E53.8 Deficiency of other specified B group vitamins; I10 Essential (primary) hypertension; H91.90 Unspecified hearing loss, unspecified ear; I25.10 Atherosclerotic heart disease of native coronary artery without angina pectoris; E11.42 Type 2 diabetes mellitus with diabetic polyneuropathy; Z96.643 Presence of artificial hip joint, bilateral; R29.6 Repeated falls; W01.0XXA Fall on same level from slipping, tripping and stumbling without subsequent striking against object, initial encounter; J44.89 Other specified chronic obstructive pulmonary disease; M19.90 Unspecified osteoarthritis, unspecified site; Z79.4 Long term (current) use of insulin; Z79.899 Other long term (current) drug therapy; Z87.891 Personal history of nicotine dependence; Z95.5 Presence of coronary angioplasty implant and graft
CPT/HCPCS: 36415; 36430; 70450; 71046; 72020; 72141; 80053; 81003; 82607; 82746; 83735; 83921; 84100; 85025; 85027; 86850; 86900; 86901; 86920; 87636; 93005; 93306; 96360; 96361; 99285

== ENCOUNTER 2024-06-12 15:08 | Emergency (ER) | payer MEDICARE, OTHER ==
--- NOTE | 2024-06-12 15:33 | ED ---
Recheck HPI - General Chief Complaint: Recheck/Abnormal Lab/Rx Stated Complaint: Hypoglycemia Time Seen by Provider: 06/12/24 15:10 Source: patient, EMS, RN notes reviewed, old records reviewed Mode of arrival: EMS Limitations: no limitations - History of Present Illness Initial Comments: This is a 68-year-old male to the ER for evaluation patient presents for bolus found to be a low blood sugar, patient was brought in with blood sugar and decreased level of responsiveness sweating prior to arrival patient was given glucose with improvement in symptoms patient feels improved here in the ER and has no current complaints aside from some back pain which he always has. MD Complaint: abnormal lab (Low blood sugar) -: days(s) Returns Today for: Called Because of Abnormal Lab/Test Symptoms Since Prior Visit: no new symptoms Context: called for abnormal lab result Associated Symptoms: none Treatments Prior to Arrival: other - Related Data Home Medications Medication Instructions Recorded Confirmed Albuterol Sulfate [Albuterol 1 - 2 puff PO RT-Q4H PRN 05/19/24 06/12/24 Sulfate Hfa] Ergocalciferol [Vitamin D2 (1250 1,250 mcg PO WE 05/19/24 06/12/24 Mcg = 39870 Iu)] Insulin Degludec [Tresiba] 35 units SQ DAILY@0600 05/19/24 06/12/24 Montelukast [Singulair] 10 mg PO HS 05/19/24 06/12/24 lisinopriL [Prinivil] 20 mg PO DAILY 05/19/24 06/12/24 Atorvastatin [Lipitor] 10 mg PO HS 06/12/24 06/12/24 HYDROcodone/APAP 10-325MG [[place] 1 tab PO Q4H PRN 06/12/24 06/12/24 10] Lactose-Reduced Food [Ensure Plus] 237 ml PO BID 06/12/24 06/12/24 Omeprazole [PriLOSEC] 20 mg PO DAILY@0600 06/12/24 06/12/24 Venlafaxine HCl ER [Effexor Xr] 37.5 mg PO DAILY 06/12/24 06/12/24 carvediloL [Coreg] 3.125 mg PO BID 06/12/24 06/12/24 Previous Rx's Medication Instructions Recorded Baclofen 10 mg PO TID PRN #60 tab 05/26/24 Acetaminophen Tab [Tylenol] 650 mg PO Q6HR PRN tab 05/29/24 Aspirin 81 mg PO DAILY tab 05/29/24 Folic Acid 1 mg PO DAILY tab 05/29/24 methocarbamoL [Robaxin] 500 mg PO QID PRN tab 05/29/24 Allergies Allergy/AdvReac Type Severity Reaction Status Date / Time No Known Allergies Allergy Verified 06/12/24 17:32 Review of Systems ROS Statement: Those systems with pertinent positive or pertinent negative responses have been documented in the HPI. ROS Other: All systems not noted in ROS Statement are negative. Past Medical History Past Medical History: Asthma, COPD, CVA/TIA, Diabetes Mellitus, Hearing Disorder / Deafness, Hyperlipidemia, Hypertension, Osteoarthritis (OA), Skin Disorder Additional Past Medical History / Comment(s): DM type II, arthritis in multiple joints, psoriasis, vitiligo, [place], hx of feeling lightheaded and falls., CVA- states left arm weak-unable to lift or reach far-unable to grasp with left hand , weakness left leg and states left foot drops down and catches on everything., uses wheelchair and cane., lower back and left hip pain, left arm fracture, bad rotator cuffs bilaterally History of Any Multi-Drug Resistant Organisms: None Reported Past Surgical History: Heart Catheterization, Joint Replacement Additional Past Surgical History / Comment(s): Bilateral hip replacements Past Anesthesia/Blood Transfusion Reactions: No Reported Reaction Additional Past Anesthesia/Blood Transfusion Reaction / Comment(s): pt states wa s unable to receive spinal tap with last surgery d/t arthritis in back, received general anesthetic" Past Psychological History: Depression Smoking Status: Former smoker - Past Family History Mother Family Medical History: Eye Disorder, Hearing Disorder / Deafness Additional Family Medical History / Comment(s): Father passed at 93yrs old. He had glaucoma and [place]. General Exam Limitations: no limitations General appearance: alert, in no apparent distress Head exam: Present: atraumatic, normocephalic, normal inspection Eye exam: Present: normal appearance, PERRL, EOMI. Absent: scleral icterus, conjunctival injection, periorbital swelling ENT exam: Present: normal exam, mucous membranes moist Neck exam: Present: normal inspection. Absent: tenderness, meningismus, lymphadenopathy Respiratory exam: Present: normal lung sounds bilaterally. Absent: respiratory distress, wheezes, rales, rhonchi, stridor Cardiovascular Exam: Present: regular rate, normal rhythm, normal heart sounds. Absent: systolic murmur, diastolic murmur, rubs, gallop, clicks GI/Abdominal exam: Present: soft, normal bowel sounds. Absent: distended, tenderness, guarding, rebound, rigid Extremities exam: Present: normal inspection, full ROM, normal capillary refill. Absent: tenderness, pedal edema, joint swelling, calf tenderness Back exam: Present: normal inspection Neurological exam: Present: alert, oriented X3, CN II-XII intact Psychiatric exam: Present: normal affect, normal mood Skin exam: Present: warm, dry, intact, normal color. Absent: rash Course Vital Signs 06/12/24 06/12/24 15:09 16:21 Pulse Rate 52 L 65 Respiratory 17 18 Rate Blood Pressure 136/69 127/70 O2 Sat by Pulse 100 99 Oximetry - Reevaluation(s) Reevaluation #1: 06/12/24 17:52 Medical records reviewed Reevaluation #2: 06/12/24 17:53 Patient symptoms unchanged 06/12/24 17:53 Patient symptoms remain resolved Reevaluation #3: 06/12/24 17:53 Patient informed of results and questions answered Reevaluation #4: Was pt. sent in by a medical professional or institution (Dr. PA, LANG PATH THERAPIST, urgent care, hospital, or detention...) When possible be specific @ -no Did you speak to anyone other than the patient for history (EMS, parent, family, police, friend...)? What history was obtained from this source @ -no Did you review nursing and triage notes (agree or disagree)? Why? @ -agree Are old charts reviewed (outside hosp., previous admission, EMS record, old EKG, old radiological studies, urgent care reports/EKG's, detention records)? Report findings @ -yes Differential Diagnosis (chest pain, altered mental status, abdominal pain women, abdominal pain men, vaginal bleeding, weakness, fever, dyspnea, syncope, headache, dizziness, GI bleed, back pain, seizure, CVA, palpatations, mental health, musculoskeletal)? @ -prior EKG interpreted by me (3pts min.). @ -yes X-rays interpreted by me (1pt min.). @ -yes negative for acute disease CT interpreted by me (1pt min.). @ -no U/S interpreted by me (1pt. min.). @ -no What testing was considered but not performed or refused? (CT, X-rays, U/S, labs)? Why? @ -none What meds were considered but not given or refused? Why? @ -none Did you discuss the management of the patient with other professionals (professionals i.e. Dr., PA, LANG PATH THERAPIST, lab, RT, psych nurse, social research assistant, supervisor bonding, teacher, disbursing officer, registered nurse hh case manager)? Give summary @ -no Was smoking cessation discussed for >3mins.? @ -no Was critical care preformed (if so, how long)? @ -no Were there social determinants of health that impacted care today? How? (Homelessness, low income, unemployed, alcoholism, drug addiction, transportation, low edu. Level, literacy, decrease access to med. care, retirement, rehab)? @ -none Was there de-escalation of care discussed even if they declined (Discuss DNR or withdrawal of care, Hospice)? DNR status @ -no What co-morbidities impacted this encounter? (DM, HTN, Smoking, COPD, CAD, Ca ncer, CVA, ARF, Chemo, Hep., AIDS, mental health diagnosis, sleep apnea, morbid obesity)? @ -none Was patient admitted / discharged? Hospital course, mention meds given and route, prescriptions, significant lab abnormalities, going to OR and other pertinent info. @ - 68 male to the ER for hypoglycemia which is resolved with blood sugar. Patient can be discharged home Discharge Undiagnosed new problem with uncertain prognosis? @ -no Drug Therapy requiring intensive monitoring for toxicity (Heparin, Nitro, Insulin, Cardizem)? @ -no Were any procedures done? @ -no Diagnosis/symptom? @ -Hypoglycemia Acute, or Chronic, or Acute on Chronic? @ -Acute Uncomplicated (without systemic symptoms) or Complicated (systemic symptoms)? @ -Complicated Side effects of treatment? @ -no Exacerbation, Progression, or Severe Exacerbation? @ -exacerbation Poses a threat to life or bodily function? How? (Chest pain, [place], [place], pneumonia, PE, COPD, DKA, ARF, appy, cholecystitis, CVA, Diverticulitis, Homicidal, Suicidal, threat to staff... and all critical care pts) @ -yes extremes of age Medical Decision Making - Medical Decision Making 68 male to the ER for hypoglycemia which is resolved with blood sugar. Patient can be discharged home - Lab Data Result diagrams: 06/12/24 16:13 06/12/24 16:13 Lab Results 06/12/24 06/12/24 06/12/24 Range/Units 16:13 16:13 16:13 WBC 21.8 H (3.8-10.6) k/uL RBC 3.66 L (4.30-5.90) m/uL Hgb 13.0 (13.0-17.5) gm/dL Hct 40.7 (39.0-53.0) % MCV 111.2 H D (80.0-100.0) fL MCH 35.4 H (25.0-35.0) pg MCHC 31.8 (31.0-37.0) g/dL RDW 20.4 H (11.5-15.5) % Plt Count 379 (150-450) k/uL MPV 9.1 Neutrophils % 88 % Lymphocytes % 7 % Monocytes % 3 % Eosinophils % 1 % Basophils % 0 % Neutrophils # 19.3 H (1.3-7.7) k/uL Lymphocytes # 1.6 (1.0-4.8) k/uL Monocytes # 0.7 (0-1.0) k/uL Eosinophils # 0.2 (0-0.7) k/uL Basophils # 0.1 (0-0.2) k/uL Manual Slide Review Performed Large Platelets Present Hypochromasia Moderate Anisocytosis Moderate Macrocytosis Marked A PT 10.7 (10.0-12.5) sec INR 1.0 (<1.2) APTT 24.0 (22.0-30.0) sec Sodium (137-145) mmol/L Potassium (3.5-5.1) mmol/L Chloride (98-107) mmol/L Carbon Dioxide (22-30) mmol/L Anion Gap mmol/L BUN (9-20) mg/dL Creatinine (0.66-1.25) mg/dL Est GFR (CKD-EPI)AfAm (>60 ml/min/1.73 sqM) Est GFR (CKD-EPI)NonAf (>60 ml/min/1.73 sqM) Glucose (74-99) mg/dL Calcium (8.4-10.2) mg/dL Phosphorus (2.5-4.5) mg/dL Magnesium (1.6-2.3) mg/dL Total Bilirubin (0.2-1.3) mg/dL AST (17-59) U/L ALT (4-49) U/L Alkaline Phosphatase (38-126) U/L Troponin I (0.000-0.034) ng/mL Total Protein (6.3-8.2) g/dL Albumin (3.5-5.0) g/dL Urine Color Light Yellow Urine Appearance Clear (Clear) Urine pH 6.5 (5.0-8.0) Ur Specific [place] 1.011 (1.001-1.035) Urine Protein Negative (Negative) Urine Glucose (UA) Trace H (Negative) Urine Ketones Negative (Negative) Urine Blood Negative (Negative) Urine Nitrite Negative (Negative) Urine Bilirubin Negative (Negative) Urine Urobilinogen <2.0 (<2.0) mg/dL Ur Leukocyte Esterase Negative (Negative) 06/12/24 06/12/24 Range/Units 16:13 16:13 WBC (3.8-10.6) k/uL RBC (4.30-5.90) m/uL Hgb (13.0-17.5) gm/dL Hct (39.0-53.0) % MCV (80.0-100.0) fL MCH (25.0-35.0) pg MCHC (31.0-37.0) g/dL RDW (11.5-15.5) % Plt Count (150-450) k/uL MPV Neutrophils % % Lymphocytes % % Monocytes % % Eosinophils % % Basophils % % Neutrophils # (1.3-7.7) k/uL Lymphocytes # (1.0-4.8) k/uL Monocytes # (0-1.0) k/uL Eosinophils # (0-0.7) k/uL Basophils # (0-0.2) k/uL Manual Slide Review Large Platelets Hypochromasia Anisocytosis Macrocytosis PT (10.0-12.5) sec INR (<1.2) APTT (22.0-30.0) sec Sodium 138 (137-145) mmol/L Potassium 4.2 (3.5-5.1) mmol/L Chloride 106 (98-107) mmol/L Carbon Dioxide 29 (22-30) mmol/L Anion Gap 3 mmol/L BUN 12 (9-20) mg/dL Creatinine 0.44 L (0.66-1.25) mg/dL Est GFR (CKD-EPI)AfAm >90 (>60 ml/min/1.73 sqM) Est GFR (CKD-EPI)NonAf >90 (>60 ml/min/1.73 sqM) Glucose 168 H (74-99) mg/dL Calcium 9.3 (8.4-10.2) mg/dL Phosphorus 4.3 (2.5-4.5) mg/dL Magnesium 2.1 (1.6-2.3) mg/dL Total Bilirubin 0.4 (0.2-1.3) mg/dL AST 24 (17-59) U/L ALT 14 (4-49) U/L Alkaline Phosphatase 54 (38-126) U/L Troponin I <0.012 (0.000-0.034) ng/mL Total Protein 6.3 (6.3-8.2) g/dL Albumin 3.6 (3.5-5.0) g/dL Urine Color Urine Appearance (Clear) Urine pH (5.0-8.0) Ur Specific [place] (1.001-1.035) Urine Protein (Negative) Urine Glucose (UA) (Negative) Urine Ketones (Negative) Urine Blood (Negative) Urine Nitrite (Negative) Urine Bilirubin (Negative) Urine Urobilinogen (<2.0) mg/dL Ur Leukocyte Esterase (Negative) - EKG Data -: EKG Interpreted by Me (EKG is sinus bradycardia 55 CA 199 QRS 91 QTc 441) - Radiology Data Radiology results: report reviewed (Chest x-ray is negative for acute disease), image reviewed Disposition Clinical Impression: Diabetic hypoglycemia Disposition: HOME SELF-CARE Condition: Fair Instructions (If sedation given, give patient instructions): Hypoglycemia in a Person with Diabetes (ED) Is patient prescribed a controlled substance at d/c from ED?: No Referrals: Catherine Barry MD [Primary Care Provider] - 1-2 days Time of Disposition: 18:00
--- NOTE | 2024-06-12 16:06 | XR ---
EXAMINATION TYPE: XR chest 1V DATE OF EXAM: 06/12/2024 COMPARISON: 05/20/2024 HISTORY: Shortness of breath TECHNIQUE: Single frontal view of the chest is obtained. FINDINGS: There is no focal air space opacity, pleural effusion, or pneumothorax seen. The cardiac silhouette size is within normal limits. The osseous structures are intact. IMPRESSION: No acute process. [facility], Workstation: [facility] 06/12/2024 4:04 PM
[2024-06-12] MEDS: KETOROLAC 15 MG/ML 1 ML VIAL IVP STA (16:08)
[2024-06-12] MEDS: SODIUM CHLORIDE 0.9% 500 ML 500 ML IV STA ×2 (16:09→16:25)
[2024-06-12 16:22] VITALS: BP 127/70; PULSE 65; RESP 18
[2024-06-12 16:50] LABS: Anisocytosis Moderate; Appearance,Urine Clear (Clear); Basophils # (A) 0.1 k/uL (0-0.2); Basophils % (A) 0 %; Bilirubin,Urine Negative (Negative); Blood,Urine Negative (Negative); Color,Urine Light Yellow; Eosinophils # (A) 0.2 k/uL (0-0.7); Eosinophils % (A) 1 %; Glucose,Urine (UA) Trace (Negative); HCT 40.7 % (39.0-53.0); Hypochromasia Moderate; Ketones,Urine Negative (Negative); Leukocyte Esterase,Urine Negative (Negative); Lymphocytes # (A) 1.6 k/uL (1.0-4.8); Lymphocytes % (A) 7 %; MCH 35.4 pg (25.0-35.0); MCHC 31.8 g/dL (31.0-37.0); Macrocytosis Marked; Mean Platelet Volume 9.1; Monocytes # (A) 0.7 k/uL (0-1.0); Monocytes % (A) 3 %; Neutrophils # (A) 19.3 k/uL (1.3-7.7); Neutrophils % (A) 88 %; Nitrite,Urine Negative (Negative); PH, Urine 6.5 (5.0-8.0); Platelet Count 379 k/uL (150-450); Protein,Urine Negative (Negative); RBC 3.66 m/uL (4.30-5.90); RDW 20.4 % (11.5-15.5); Specific Gravity,Urine 1.011 (1.001-1.035); Urobilinogen,Urine <2.0 mg/dL (<2.0); WBC 21.8 k/uL (3.8-10.6)
[2024-06-12 16:57] LABS: MCV 111.2 fL (80.0-100.0)
[2024-06-12 16:59] LABS: Prothrombin Time 10.7 sec (10.0-12.5)
[2024-06-12 17:19] LABS: Large Platelets Present
[2024-06-12] MEDS: HYDROmorphone 1 MG/ML 1 ML SYRINGE IVP STA (17:26)
[2024-06-12 17:29] LABS: ALT 14 U/L (4-49); AST 24 U/L (17-59); African American GFR (CKD) >90 (>60 ml/min/1.73 sqM); Albumin 3.6 g/dL (3.5-5.0); Alkaline Phosphatase 54 U/L (38-126); Anion Gap 3 mmol/L; Blood Urea Nitrogen 12 mg/dL (9-20); Calcium 9.3 mg/dL (8.4-10.2); Carbon Dioxide 29 mmol/L (22-30); Chloride 106 mmol/L (98-107); Glucose 168 mg/dL (74-99); Magnesium 2.1 mg/dL (1.6-2.3); Non-African American GFR(CKD) >90 (>60 ml/min/1.73 sqM); Phosphorus 4.3 mg/dL (2.5-4.5); Potassium 4.2 mmol/L (3.5-5.1); Sodium 138 mmol/L (137-145); Total Bilirubin 0.4 mg/dL (0.2-1.3); Total Protein 6.3 g/dL (6.3-8.2)
== END 2024-06-12 19:24 | disposition home or self-care (01) ==
LOC: EC 15:08 → EEVIPCON 15:08 → EC 19:24
DX: E11.649 Type 2 diabetes mellitus with hypoglycemia without coma (principal); R00.1 Bradycardia, unspecified; Z87.891 Personal history of nicotine dependence
CPT/HCPCS: 36415; 93005; 80053; 83735; 84100; 84484; 85025; 85610; 85730; 81003; 71045; 99285; 96374; J1885

== ENCOUNTER 2024-07-23 11:16 | Emergency (ER) | payer MEDICARE, OTHER ==
[2024-07-23 11:24] VITALS: RESP 18
--- NOTE | 2024-07-23 11:47 | ED ---
Male Urogenital HPI - General Chief complaint: Recheck/Abnormal Lab/Rx Stated complaint: UTI Time Seen by Provider: 07/23/24 11:19 Source: patient, EMS, RN notes reviewed Mode of arrival: EMS Limitations: no limitations - History of Present Illness Initial comments: This is a 68-year-old male who presents to the emergency department for urinary symptoms. Patient lives at a senior care and had been complaining of burning with urination over the last 2 to 3 days. He told the staff who advised he drink more water. States that he tried doing this but has not had any relief. They then gave him a hat to urinate into and states that it was essentially straight blood. He was then sent here for evaluation. Denies any history of hematuria. Unsure if he takes blood thinners. He has chronic back pain, but denies any new pain in the back. Denies any abdominal pain, fevers, chills, nausea, or vomiting. MD Complaint: dysuria - Related Data Home Medications Medication Instructions Recorded Confirmed Albuterol Sulfate [Albuterol 1 - 2 puff PO RT-Q4H PRN 05/19/24 06/12/24 Sulfate Hfa] Ergocalciferol [Vitamin D2 (1250 1,250 mcg PO WE 05/19/24 06/12/24 Mcg = 46254 Iu)] Insulin Degludec [Tresiba] 35 units SQ DAILY@0600 05/19/24 06/12/24 Montelukast [Singulair] 10 mg PO HS 05/19/24 06/12/24 lisinopriL [Prinivil] 20 mg PO DAILY 05/19/24 06/12/24 Atorvastatin [Lipitor] 10 mg PO HS 06/12/24 06/12/24 HYDROcodone/APAP 10-325MG [[place] 1 tab PO Q4H PRN 06/12/24 06/12/24 10] Lactose-Reduced Food [Ensure Plus] 237 ml PO BID 06/12/24 06/12/24 Omeprazole [PriLOSEC] 20 mg PO DAILY@0600 06/12/24 06/12/24 Venlafaxine HCl ER [Effexor Xr] 37.5 mg PO DAILY 06/12/24 06/12/24 carvediloL [Coreg] 3.125 mg PO BID 06/12/24 06/12/24 Previous Rx's Medication Instructions Recorded Baclofen 10 mg PO TID PRN #60 tab 05/26/24 Acetaminophen Tab [Tylenol] 650 mg PO Q6HR PRN tab 05/29/24 Aspirin 81 mg PO DAILY tab 05/29/24 Folic Acid 1 mg PO DAILY tab 05/29/24 methocarbamoL [Robaxin] 500 mg PO QID PRN tab 05/29/24 cefuroxime axetiL [Ceftin] 500 mg PO BID 10 Days #20 tab 07/23/24 Allergies Allergy/AdvReac Type Severity Reaction Status Date / Time No Known Allergies Allergy Verified 06/12/24 17:32 Review of Systems ROS Statement: Those systems with pertinent positive or pertinent negative responses have been documented in the HPI. ROS Other: All systems not noted in ROS Statement are negative. Past Medical History Past Medical History: Asthma, COPD, CVA/TIA, Diabetes Mellitus, Hearing Disorder / Deafness, Hyperlipidemia, Hypertension, Osteoarthritis (OA), Skin Disorder Additional Past Medical History / Comment(s): DM type II, arthritis in multiple joints, psoriasis, vitiligo, [place], hx of feeling lightheaded and falls., CVA- states left arm weak-unable to lift or reach far-unable to grasp with left hand , weakness left leg and states left foot drops down and catches on everything., uses wheelchair and cane., lower back and left hip pain, left arm fracture, bad rotator cuffs bilaterally History of Any Multi-Drug Resistant Organisms: None Reported Past Surgical History: Heart Catheterization, Joint Replacement Additional Past Surgical History / Comment(s): Bilateral hip replacements Past Anesthesia/Blood Transfusion Reactions: No Reported Reaction Additional Past Anesthesia/Blood Transfusion Reaction / Comment(s): pt states was unable to receive spinal tap with last surgery d/t arthritis in back, receiv ed general anesthetic" Past Psychological History: Depression Smoking Status: Former smoker - Past Family History Mother Family Medical History: Eye Disorder, Hearing Disorder / Deafness Additional Family Medical History / Comment(s): Father passed at 93yrs old. He had glaucoma and council. General Exam Limitations: no limitations General appearance: alert, in no apparent distress Head exam: Present: atraumatic, normocephalic, normal inspection Respiratory exam: Present: normal lung sounds bilaterally. Absent: respiratory distress, wheezes, rales, rhonchi, stridor Cardiovascular Exam: Present: regular rate, normal rhythm, normal heart sounds. Absent: systolic murmur, diastolic murmur, rubs, gallop, clicks GI/Abdominal exam: Present: soft, normal bowel sounds. Absent: distended, tenderness, guarding, rebound, rigid Neurological exam: Present: alert, oriented X3, CN II-XII intact Psychiatric exam: Present: normal affect, normal mood Skin exam: Present: warm, dry, intact, normal color. Absent: rash Course Vital Signs 07/23/24 07/23/24 07/23/24 11:18 11:21 14:07 Temperature 98.7 F 98.6 F Pulse Rate 82 79 Respiratory 18 18 Rate Blood Pressure 160/86 148/83 O2 Sat by Pulse 98 99 Oximetry Medical Decision Making - Medical Decision Making This is a 68-year-old male who presents to the emergency department for urinary symptoms. Was pt. sent in by a medical professional or institution? @ -No Did you speak to anyone other than the patient for history? @ -No Did you review nursing and triage notes? @ -Yes, and I agree, it is accurate with regards to the patient's symptoms. Were old charts reviewed? @ -No Differential Diagnosis? @ -UTI, STI, pyelonephritis, prostatitis, injury, this is not meant to be an all-inclusive list. EKG interpreted by me (3pts min.)? @ -Not obtained X-rays interpreted by me (1pt min.)? @ -Not obtained CT interpreted by me (1pt min.)? @ -Not obtained U/S interpreted by me (1pt. min.)? @ -Not obtained What testing was considered but not performed? (CT, X-rays, U/S, labs)? Why? @ -None What meds were considered but not given? Why? @ -None Did you discuss the management of the patient with other professionals? @ -No Did you reconcile home meds? @ -No Was smoking cessation discussed for >3mins.? @ -No Was critical care preformed (if so, how long)? @ -No Were there social determinants of health that impacted care today? How? (Homelessness, low income, unemployed, alcoholism, drug addiction, transportation, low edu. Level, literacy, decrease access to med. care, shelter, rehab)? @ -No Was there de-escalation of care discussed even if they declined? (Discuss DNR or withdrawal of care, Hospice)? @ -No What co-morbidities impacted this encounter? (DM, HTN, Smoking, COPD, CAD, Cancer, CVA, Hep., AIDS, mental health diagnosis, sleep apnea, morbid obesity)? @ -DM Was patient admitted / discharged? @ -Discharged. Lab work demonstrates mild leukocytosis and is otherwise unremarkable. Urinalysis contains a large amount of blood and a large amount of white blood cells suggestive of infection. Urine sent for culture. 2 g of Rocephin administered in the emergency department. Prescription for cefuroxime provided with dosing instructions reviewed. Advised follow-up with his PCP for reevaluation. Patient discharged home in stable condition. Case discussed with ED attending Dr. Redding. Return precautions reviewed in depth, the patient is instructed to return to the emergency department with any new, worsening, or concerning symptoms. Patient verbalized understanding. Undiagnosed new problem with uncertain prognosis? @ -None Drug Therapy requiring intensive monitoring for toxicity (Heparin, Nitro, In sulin, Cardizem)? @ -None Were any procedures done? @ -None Diagnosis/symptom? @ -UTI, hematuria Acute, or Chronic, or Acute on Chronic? @ -Acute Uncomplicated (without systemic symptoms) or Complicated (systemic symptoms)? @ -Uncomplicated Side effects of treatment? @ -None Exacerbation, Progression, or Severe Exacerbation] @ -Not applicable Poses a threat to life or bodily function? @ -No - Lab Data Result diagrams: 07/23/24 11:40 07/23/24 11:40 Lab Results 07/23/24 07/23/24 07/23/24 Range/Units 11:40 11:40 11:40 WBC 10.8 H (3.8-10.6) k/uL RBC 4.22 L (4.30-5.90) m/uL Hgb 13.6 (13.0-17.5) gm/dL Hct 39.7 (39.0-53.0) % MCV 94.3 D (80.0-100.0) fL MCH 32.2 (25.0-35.0) pg MCHC 34.2 (31.0-37.0) g/dL RDW 16.5 H (11.5-15.5) % Plt Count 172 D (150-450) k/uL MPV 9.3 Neutrophils % 82 % Lymphocytes % 11 % Monocytes % 6 % Eosinophils % 1 % Basophils % 0 % Neutrophils # 8.9 H (1.3-7.7) k/uL Lymphocytes # 1.2 (1.0-4.8) k/uL Monocytes # 0.6 (0-1.0) k/uL Eosinophils # 0.1 (0-0.7) k/uL Basophils # 0.0 (0-0.2) k/uL Manual Slide Review Performed Anisocytosis Slight PT 11.0 (10.0-12.5) sec INR 1.0 (<1.2) APTT 25.3 (22.0-30.0) sec Sodium 137 (137-145) mmol/L Potassium 4.2 (3.5-5.1) mmol/L Chloride 105 (98-107) mmol/L Carbon Dioxide 24 (22-30) mmol/L Anion Gap 8 mmol/L BUN 14 (9-20) mg/dL Creatinine 0.41 L (0.66-1.25) mg/dL Est GFR (CKD-EPI)AfAm >90 (>60 ml/min/1.73 sqM) Est GFR (CKD-EPI)NonAf >90 (>60 ml/min/1.73 sqM) Glucose 223 H (74-99) mg/dL Plasma Lactic Acid Matty (0.7-2.0) mmol/L Calcium 8.8 (8.4-10.2) mg/dL Total Bilirubin 0.5 (0.2-1.3) mg/dL AST 19 (17-59) U/L ALT 10 (4-49) U/L Alkaline Phosphatase 66 (38-126) U/L Total Protein 6.5 (6.3-8.2) g/dL Albumin 3.8 (3.5-5.0) g/dL Urine Color Urine Appearance (Clear) Urine RBC (0-5) /hpf Urine WBC (0-5) /hpf Urine WBC Clumps (None) /hpf Ur Squamous Epith Cells (0-4) /hpf Urine Bacteria (None) /hpf 07/23/24 07/23/24 Range/Units 11:40 12:16 WBC (3.8-10.6) k/uL RBC (4.30-5.90) m/uL Hgb (13.0-17.5) gm/dL Hct (39.0-53.0) % MCV (80.0-100.0) fL MCH (25.0-35.0) pg MCHC (31.0-37.0) g/dL RDW (11.5-15.5) % Plt Count (150-450) k/uL MPV Neutrophils % % Lymphocytes % % Monocytes % % Eosinophils % % Basophils % % Neutrophils # (1.3-7.7) k/uL Lymphocytes # (1.0-4.8) k/uL Monocytes # (0-1.0) k/uL Eosinophils # (0-0.7) k/uL Basophils # (0-0.2) k/uL Manual Slide Review Anisocytosis PT (10.0-12.5) sec INR (<1.2) APTT (22.0-30.0) sec Sodium (137-145) mmol/L Potassium (3.5-5.1) mmol/L Chloride (98-107) mmol/L Carbon Dioxide (22-30) mmol/L Anion Gap mmol/L BUN (9-20) mg/dL Creatinine (0.66-1.25) mg/dL Est GFR (CKD-EPI)AfAm (>60 ml/min/1.73 sqM) Est GFR (CKD-EPI)NonAf (>60 ml/min/1.73 sqM) Glucose (74-99) mg/dL Plasma Lactic Acid Matty 1.0 (0.7-2.0) mmol/L Calcium (8.4-10.2) mg/dL Total Bilirubin (0.2-1.3) mg/dL AST (17-59) U/L ALT (4-49) U/L Alkaline Phosphatase (38-126) U/L Total Protein (6.3-8.2) g/dL Albumin (3.5-5.0) g/dL Urine Color Red Urine Appearance Bloody (Clear) Urine RBC >182 H (0-5) /hpf Urine WBC >182 H (0-5) /hpf Urine WBC Clumps Few H (None) /hpf Ur Squamous Epith Cells 4 (0-4) /hpf Urine Bacteria Rare H (None) /hpf Disposition Clinical Impression: UTI (urinary tract infection), Hematuria Disposition: HOME SELF-CARE Instructions (If sedation given, give patient instructions): Urinary Tract In fection in Men (ED), Hematuria (ED) Additional Instructions: Return to the emergency department with any new, worsening, or concerning symptoms. Take the antibiotic as prescribed for 10 days. Follow up with your primary care provider in 1-2 days. Prescriptions: cefuroxime axetiL [Ceftin] 500 mg PO BID 10 Days #20 tab Is patient prescribed a controlled substance at d/c from ED?: No Referrals: Catherine Barry MD [Primary Care Provider] - 1-2 days Time of Disposition: 12:47
[2024-07-23 12:06] LABS: Anisocytosis Slight; Basophils % (A) 0 %; Eosinophils # (A) 0.1 k/uL (0-0.7); Eosinophils % (A) 1 %; HCT 39.7 % (39.0-53.0); HGB 13.6 gm/dL (13.0-17.5); Lymphocytes # (A) 1.2 k/uL (1.0-4.8); Lymphocytes % (A) 11 %; MCH 32.2 pg (25.0-35.0); MCHC 34.2 g/dL (31.0-37.0); Mean Platelet Volume 9.3; Monocytes # (A) 0.6 k/uL (0-1.0); Monocytes % (A) 6 %; Neutrophils # (A) 8.9 k/uL (1.3-7.7); Neutrophils % (A) 82 %; Partial Thromboplastin Time 25.3 sec (22.0-30.0); RBC 4.22 m/uL (4.30-5.90); RDW 16.5 % (11.5-15.5); WBC 10.8 k/uL (3.8-10.6)
[2024-07-23 12:09] LABS: MCV 94.3 fL (80.0-100.0)
[2024-07-23 12:10] LABS: ALT 10 U/L (4-49); AST 19 U/L (17-59); African American GFR (CKD) >90 (>60 ml/min/1.73 sqM); Albumin 3.8 g/dL (3.5-5.0); Alkaline Phosphatase 66 U/L (38-126); Anion Gap 8 mmol/L; Blood Urea Nitrogen 14 mg/dL (9-20); Calcium 8.8 mg/dL (8.4-10.2); Carbon Dioxide 24 mmol/L (22-30); Chloride 105 mmol/L (98-107); Glucose 223 mg/dL (74-99); Non-African American GFR(CKD) >90 (>60 ml/min/1.73 sqM); Potassium 4.2 mmol/L (3.5-5.1); Sodium 137 mmol/L (137-145); Total Bilirubin 0.5 mg/dL (0.2-1.3); Total Protein 6.5 g/dL (6.3-8.2)
[2024-07-23] MEDS: HYDROmorphone 1 MG/ML 1 ML SYRINGE IVP STA ×2 (12:11→13:34)
[2024-07-23] MEDS: SODIUM CHLORIDE 0.9% 500 ML 500 ML IV STA (12:13)
[2024-07-23 12:19] LABS: Platelet Count 172 k/uL (150-450)
[2024-07-23 12:33] LABS: Bacteria,Urine Rare /hpf; Color,Urine Red; RBC,Urine >182 /hpf (0-5); Squamous Epithelial Cell,Urine 4 /hpf (0-4); WBC,Urine >182 /hpf (0-5)
[2024-07-23 12:34] LABS: Appearance,Urine Bloody (Clear)
[2024-07-23] MEDS: cefTRIAXone IN SWFI 1,000 MG/10 ML SYRINGE IVP STA ×2 (13:00→13:01)
[2024-07-23 14:10] VITALS: BP 148/83; PULSE 79; TEMP 98.6
== END 2024-07-23 14:10 | disposition home or self-care (01) ==
LOC: EC 11:16
DX: N39.0 Urinary tract infection, site not specified (principal); E11.9 Type 2 diabetes mellitus without complications; Z79.4 Long term (current) use of insulin; Z87.891 Personal history of nicotine dependence
CPT/HCPCS: 36415; 80053; 83605; 85025; 85610; 85730; 81001; 87086; 99284; 96374; 96375; 96376; 96361; J0696; J1171